=== PATIENT | female | born 1950 | race Caucasian/White ===

== ENCOUNTER 2022-10-30 08:05 | Outpatient (OUT) | payer MEDICARE, OTHER, SELFPAY ==
--- NOTE | 2022-10-30 08:15 | NM_ITS ---
Patient: ISABELLA HORNE Exam Date: 10/30/2022 : 1950 Gender:F Ordering : DR ALLISON GONZALES M.D. Admission #: [id number] Family : DR HONG SCHILLING M.D. Order #: [id number] CLICK HERE TO VIEW EXAM RADIOLOGY REPORT PROCEDURE: NM ANTONELLA PERF SPECT REST STR COMPARISON: None. INDICATIONS: NONRHEUMATIC MITRAL VALVE REGURGITATION TECHNIQUE: Exam Description: Stress/Rest one day protocol gated SPECT Rest Imagin.9 mCi Tc-99m Cardiolite IV on 10/30/2022 Stress Imaging 29.9 mCi Tc-99m Cardiolite IV on 10/30/2022 Exercise Protocol: 0.4 mg Lexiscan given IV Heart Rate (bpm): Rest: 68 Max: 85 PMHR: 57 Blood Pressure: Rest: 148/80 Max: 148/80 Symptoms: Rest and peak stress ECG findings were (unknown) and the exercise portion of the study was (unknown) per attending physician (Unknown) . For more details please see separate cardiac stress test report. FINDINGS: QUALITY OF STUDY: Good. PERFUSION DEFECT: LOCATION: Mid-anterior. Apical anterior. Apical septal. Apical inferior. Apical lateral. [place]. SIZE: Large (5 or more segments). SEVERITY: Severe. TYPE: Persistent. WALL MOTION: Dyskinesis: Apical anterior. Apical septal. Apical inferior. Apical lateral. [place]. LV SIZE: Normal. 122 mL. TID / TCD: None; 1.0 LVEF: Abnormal. Calculated EF 41%. SUMMARY: Myocardial perfusion imaging study has ABNORMAL findings. CONCLUSION: 1. No acute or reversible ischemia. 2. Large areas of fixed restricted perfusion involving the anterior wall and predominately the apex. 3. Abnormal dyskinesia of the apically tillman. 4. Abnormal, low ejection fraction 41%. Dictated by: Mike Astudillo M.D. on 10/31/2022 at 12:13 Approved by: Mike Astudillo M.D. on 10/31/2022 at 12:26
--- NOTE | 2022-10-30 09:36 | CA_ITS ---
Patient: ISABELLA HORNE Exam Date: 10/30/2022 : 1950 Gender:F Ordering : DR GERMANIA HELTON M.D. Admission #: [id number] Family : Order #: [id number] CLICK HERE TO VIEW EXAM ECHOCARDIOGRAM REPORT PROCEDURE: CA ECHO DOPPLER COMPLETE INDICATIONS: Nonrheumatic mitral valve regurgitation COMPARISON: None. DESCRIPTION: COMPLETE ECHOCARDIOGRAM Real-time transthoracic echocardiography with 2D, M-mode, spectral and color flow Doppler performed. QUALITY: Technical quality was good. LEFT VENTRICLE: Normal chamber size. Normal left ventricular wall thickness. LV EF: Global left ventricular systolic function is mild to moderately reduced; visually estimated ejection fraction is 35 to 40%. The distal two thirds of the septum, the apex and the distal anterolateral tillman are akinetic. DIASTOLIC: Grade I diastolic dysfunction. ATRIAL SEPTUM: Inadequately seen. LEFT ATRIUM: Mild dilatation. RIGHT ATRIUM: Mild dilatation. RIGHT VENTRICLE: Normal chamber size. Normal right ventricular systolic function. TRICUSPID VALVE: Normal mobility and thickness. Mild regurgitation. Mild pulmonary hypertension. RVSP 42mmHg MITRAL VALVE: Normal mobility and thickness. No evidence of mitral valve stenosis. There is no mitral annular calcification. Mild to moderate mitral regurgitation. AORTIC VALVE: Normal trileaflet appearance. Thickened aortic valve. Normal leaflet mobility. No evidence of aortic valve stenosis. Mild aortic regurgitation. AORTIC ROOT: Normal diameter and appearance. PULMONIC VALVE: Normal thickness and mobility. Trivial regurgitation. PERICARDIUM: No evidence of pericardial effusion. IVC: Collapses with inspirations. Normal size. CONCLUSION: 1. Global left ventricular systolic function is mild to moderately reduced; visually estimated ejection fraction is 35 to 40%. Segmental wall motion abnormalities are seen. 2. Grade 1 diastolic dysfunction. 3. Biatrial enlargement. 4. The right ventricle is normal in size and systolic function. 5. Mild tricuspid regurgitation. Mildly elevated right ventricular systolic pressure. 6. Mild to moderate mitral regurgitation. 7. Mild aortic valve regurgitation. Adult Echocardiography Procedure Report Left Ventricle LVEDD (3.7 - 5.6 cm): 4.80 cm LVESD (2.2 - 4.0 cm): 4.00 cm LVIVS thickness (0.6 - 1.2 cm): 0.82 cm LVPW thickness (0.5 - 1.0 cm): 0.84 cm e': 0.08 m/s E - e': 8.34 LVOT Max Gradient: 1.99 mm[Hg] LVOT Area (cm2): 0.71 m/s Peak Velocity (LVOT): 0.71 m/s Mean Velocity (LVOT): 0.52 m/s LVOT Diameter 1.92 cm Left Atrium LA Volume Index (2D A2C): 39.18 ml/m2 Left Atrium Systolic Dimension: 4.18 cm Mitral Valve MV E to A Ratio: 0.70 Mitral Valve A-Wave Peak Velocity: 1.00 m/s Mitral Valve E-Wave Peak Velocity: 0.70 m/s Right Ventricle RV Internal Diastolic Dimension: 3.35 cm Aorta AO Root Diam: 2.89 cm Aortic Valve AoV Area (Peak Kiran): 1.50 cm2, 1.50 cm2 AoV Area (VTI): 1.66 cm2, 1.66 cm2 Deceleration Gaines: 2.01 m/s2 Pressure Half-Time: 594.23 ms Peak Velocity(Antegrade Flow): 1.37 m/s Peak Gradient(Antegrade Flow): 7.50 mm[Hg] Mean Velocity(Antegrade Flow): 1.01 m/s Mean Gradient(Antegrade Flow): 4.59 mm[Hg] Velocity Time Integral: 38.58 cm Tricuspid Valve Peak Velocity (Regurgitant Flow): 3.13 m/s, 2.88 m/s, 2.49 m/s Pulmonic Valve Mean Gradient: 2.40 mm[Hg], 1.78 mm[Hg] Mean Velocity: 0.73 m/s, 0.63 m/s Peak Velocity: 0.95 m/s Peak Gradient: 4.20 mm[Hg], 3.08 mm[Hg] Right Atrium Right Atrium Systolic Pressure: 31.90 ml, 31.90 ml Dictated by: Germania Helton M.D. on 11/02/2022 at 16:28 Approved by: Germania Helton M.D. on 11/02/2022 at 16:33
[2022-10-30] MEDS: REGADENOSON 0.4 MG/5 ML SYRINGE IV (10:21)
--- NOTE | 2022-11-01 | PCN_ITS ---
CARDIAC STRESS TEST Requesting Physician:? Procedure Date:? 11/01/2022 INDICATION:? Abnormal EKG, preoperative risk assessment. METHODS:? After risks, benefits and alternatives were explained, written informed consent was obtained.? The patient was connected to the appropriate hemodynamic and electrocardiographic monitoring. Lexiscan 0.4 mg was infused intravenously.? She was monitored for the standard duration and discharged in a stable state.? There were no complications.? FINDINGS: HEMODYNAMICS:? Resting heart rate was 68 beats per minute, increasing to a maximum of 85 beats per minute. Resting blood pressure was 148/80, decreasing to a minimum of 138/78.? ELECTROCARDIOGRAPHIC FINDINGS:? Rest EKG:? Sinus bradycardia, 51 beats per minute, low voltage QRS in the precordial leads, non-specific ST-T wave changes inferolaterally.? Cannot rule out anterior infarct, age indeterminate.? Abnormal resting EKG.? During infusion and recovery:? No significant changes were seen.? Infrequent premature ventricular contractions noted.? A ventricular couplet was seen. FINAL IMPRESSIONS: 1.? No ischemic ST-T wave changes noted during Lexiscan stress test.? 2. ?Nuclear images are to be read, interpreted and reported in a separate dictation. [facility]
== END 2022-10-30 08:06 | disposition home or self-care (01) ==
PROVIDERS: PCP Family Medicine; Visit Provider Internal Medicine Interventional Cardiology
DX: Z01.818 Encounter for other preprocedural examination (principal); I34.0 Nonrheumatic mitral (valve) insufficiency; R94.31 Abnormal electrocardiogram [ECG] [EKG]
CPT/HCPCS: 78452; 93017; 93306; 93356; A9500; J2785

== ENCOUNTER 2022-12-14 14:01 | Emergency (ER) | payer MEDICARE, OTHER, SELFPAY ==
[2022-12-14] VITALS (8 sets, daily range): BP systolic 97–117; BP diastolic 43–76; PULSE 65–93; RESP 17–23; TEMP 36.7; O2SAT 97–100; BMI 24.7
--- NOTE | 2022-12-14 14:17 | ECG_ITS ---
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
--- NOTE | 2022-12-14 14:18 | ED.CHESTPAI1 ---
HPI - Chest Pain General Chief Complaint: Chest Pain Stated Complaint: COUGHING UP BLOOD Time Seen by Provider: 12/14/22 14:10 Source: patient Mode of arrival: walk-in Limitations: no limitations History of Present Illness HPI narrative: patient is a 72-year-old female who presents to the emergency department with her for the evaluation of pleuritic chest pain that began yesterday after her colonoscopy at the [facility] as well as blood-tinged mucus that she has been coughing up today. She had a colonoscopy yesterday as an outpatient, she was cleared by her sql database developer for this procedure last week. She has a history of coronary artery disease and open heart surgery. She has had no fevers, vomiting or diarrhea. She states she has pain in the left anterior chest that is worse with deep breathing and coughing. She does not feel the pain is severe. She has a history of vocal cord paralysis after her open-heart surgery and states as a result she has chronic nasal drainage and throat drainage that is difficult for her to clear. She states today she was coughing up mucus and noted that there was red blood in the mucus. She does not take blood thinners. She had no other issues after her procedure yesterday. Related Data Previous Rx's Medication Instructions Recorded amoxicillin 875 mg-potassium 1 tab PO Q12H #20 tabs 12/14/22 clavulanate 125 mg tablet ondansetron 4 mg disintegrating 4 mg PO Q6H PRN nausea and 12/14/22 tablet vomiting #12 tabs prednisone 20 mg tablet 60 mg PO DAILY 3 days #9 tabs 12/14/22 Allergies Allergy/AdvReac Type Severity Reaction Status Date / Time No Known Drug Allergies Allergy Verified 12/14/22 14:05 Review of Systems ROS Constitutional Denies: fever or chills Ears, nose, mouth, and throat Reports: nasal congestion Cardiovascular Reports: chest pain Respiratory Reports: cough and coughing up blood; Denies: shortness of breath Gastrointestinal Denies: nausea or vomiting Genitourinary Denies: painful urination Musculoskeletal Denies: back pain Integumentary/Breast Denies: rash Neurological Denies: headache Endocrine Denies: excessive urination Hematologic/Lymphatic Denies: easy bruising PFSH PFSH Social History Smoking status: Never smoker Exam Narrative Exam Narrative: Gen.: Awake, alert, in no distress Head: Normocephalic, atraumatic ENT: Moist mucous membranes Respiratory: No respiratory distress, lungs clear bilaterally; mild pain in the left anterior chest with inspiration Cardio: Regular rate and rhythm Extremities: Moves extremities equally, no edema Psych: Normal mood and affect Neuro: No focal neuro deficit Skin: Warm, dry, intact Constitutional Vital Signs, click to edit/add: Last Vital Signs Temp 98.1 F 12/14/22 14:05 Pulse 65 12/14/22 15:30 Resp 22 12/14/22 15:30 BP 102/51 12/14/22 15:30 Pulse Ox 99 12/14/22 15:30 O2 Del Method Room Air 12/14/22 14:15 Course Vital Signs Vital signs: Vital Signs Temperature 98.1 F 12/14/22 14:05 Pulse Rate 89 12/14/22 14:05 Respiratory Rate 20 12/14/22 14:05 Blood Pressure 117/76 12/14/22 14:05 Pulse Oximetry 99 12/14/22 14:05 Oxygen Delivery Method Room Air 12/14/22 14:05 Temperature 98.1 F 12/14/22 14:05 Pulse Rate 65 12/14/22 15:30 Respiratory Rate 22 12/14/22 15:30 Blood Pressure 102/51 12/14/22 15:30 Pulse Oximetry 99 12/14/22 15:30 Oxygen Delivery Method Room Air 12/14/22 14:15 MDM - Chest Pain MDM Narrative Medical decision making narrative: laboratory studies reviewed and noted showing leukocytosis with no bandemia and patient has stable vital signs in the Emergency Room. CT of the chest shows the patient has left upper and left lower lobe pneumonia. Her pain is controlled in the Emergency Room, she has an unremarkable EKG, normal troponin and pain has been present for over a day. I discussed the case with Dr. Gonzalez, he recommended Augmentin with outpatient follow-up with him in the office next week. Patient is grateful for care, she and her are very comfortable with outpatient management. She has stable vital signs at discharge, she is started on Augmentin, prednisone and Zofran for home. She was given education and reassurance that she will likely continue to have mild hemoptysis with mucus production over the weekend but if she develops any worsening of chest pain, significant shortness of breath or severe david hemoptysis she needs to return to the emergency department. Medical Records Data Attestation: I reviewed the patient's medical records. Lab Data Attestation: I reviewed the patient's lab results. Labs: Lab Results 12/14/22 Range/Units 14:25 WBC 17.2 H (4.0-11.0) 10^3/uL RBC 4.07 L (4.20-5.40) 10^6/uL Hgb 12.7 (12.0-16.0) g/dL Hct 39.4 (36.0-48.0) % MCV 96.8 (81.0-99.0) fL MCH 31.2 (26.7-34.0) pg MCHC 32.2 (29.9-35.2) g/dL RDW 13.4 (11.0-15.0) % Plt Count 149 L (150-450) 10^3/uL MPV 11.0 (9.5-13.5) fL Neut % (Auto) 85.8 H (43.0-75.0) % Lymph % (Auto) 6.4 L (20.5-60.0) % [place] % (Auto) 6.7 (1.7-12.0) % Eos % (Auto) 0.6 L (0.9-7.0) % Baso % (Auto) 0.2 (0.2-2.0) % Neut # (Auto) 14.7 H (1.4-6.5) 10^3/uL Lymph # (Auto) 1.1 L (1.2-3.8) 10^3/uL [place] # (Auto) 1.2 H (0.3-0.8) 10^3/uL Eos # (Auto) 0.1 (0.0-0.7) 10^3/uL Baso # (Auto) 0.0 (0.0-0.1) 10^3/uL Abs Immat Gran (auto) 0.06 H (0.00-0.03) 10^3/uL Imm/Tot Granulo (auto) 0.3 (0.0-0.5) % PT 10.8 (9.0-11.6) sec INR 1.02 APTT 25.2 (22.3-36.2) sec Sodium 138 (136-145) mmol/L Potassium 4.5 (3.5-5.1) mmol/L Chloride 104 (98-107) mmol/L Carbon Dioxide 29.3 (21.0-32.0) mmol/L Anion Gap 9.2 BUN 24.0 H (7.0-18.0) mg/dL Creatinine 1.46 H (0.55-1.02) mg/dL Est GFR ( Amer) 43 L (>=60) Est GFR (Non-Af Amer) 35 L (>=60) BUN/Creatinine Ratio 16.4 Glucose 142 H (74-106) mg/dL Calcium 8.9 (8.5-10.1) mg/dL Total Bilirubin 0.9 (0.2-1.0) mg/dL AST 23 (15-37) U/L ALT 20 (14-59) U/L Alkaline Phosphatase 71 (46-116) U/L Troponin I High Sens 11.8 (4.0-51.3) pg/mL NT-Pro-B Natriuret Pep 1145.0 H (<=900.0) pg/mL Total Protein 6.5 (6.4-8.2) g/dL Albumin 3.0 L (3.4-5.0) g/dL Globulin 3.5 g/dL Albumin/Globulin Ratio 0.[address] scan - chest: Attestation: I have reviewed the pertinent imaging results. Radiologist's impression: Procedure: CT chest w con EXAMINATION: CT chest w con HISTORY: Hemoptysis COMPARISON: None. TECHNIQUE: CT examination of the chest performed With intravenous contrast. Coronal and sagittal reformations were performed. Dose reduction techniques were achieved by using automated exposure control and/or adjustment of mA and/or kV according to patient size and/or use of iterative reconstruction technique. Findings: LUNGS: A large amount of groundglass and consolidative opacities throughout the left upper and lower lobes. AIRWAYS: Central airways patent. PLEURA: Trace right pleural effusion. MEDIASTINUM AND LEATHA: Calcified lymph nodes. HEART AND PERICARDIUM: No significant finding. VESSELS: No central pulmonary emboli. Heavy coronary calcification. CHEST WALL: Median sternotomy wires. NECK BASE: No significant finding. VISUALIZED UPPER ABDOMEN: Calcified splenic granuloma. Approximately 2 cm splenic hypodensity, series 3 image 82, potentially contrast timing related, and/or cyst, hemangioma, hamartoma. BONES: As above. DISH of the thoracic spine. Impression: Left upper and lower lobar pneumonia, likely superimposed hemorrhage given provided history. Follow-up to resolution. Trace right pleural effusion. Electronically authenticated by: LIO VILLALBA Date: 12/14/2022 15:46 ECG Data Attestation: I personally reviewed and interpreted this ECG as follows: (normal sinus rhythm at a rate of eighty-five with frequent PVCs, no acute ST elevation or ectopy. EKG reviewed by attending physician) ECG interpretation date: 12/14/22 ECG interpretation time: 14:20 Discharge Plan Discharge Chief Complaint: Chest Pain Clinical Impression: Hemoptysis, Left lower lobe pneumonia, Chest pain Patient Disposition: Home, Self-Care Time of Disposition Decision: 16:00 Condition: Good Prescriptions / Home Meds: New prednisone 20 mg tablet 60 mg PO DAILY 3 Days Qty: 9 0RF ondansetron 4 mg tablet,disintegrating 4 mg PO Q6H PRN (Reason: nausea and vomiting) Qty: 12 0RF amoxicillin-pot clavulanate 875-125 mg tablet 1 tab PO Q12H Qty: 20 0RF Instructions: Coughing Up Blood (Hemoptysis) (ED), Pneumonia (ED), Chest Wall Pain (ED) Stand Alone Forms: Portal Instructions Referrals: HONG SCHILLING [Primary Care Provider] - 1 week
[2022-12-14 14:38] LABS: Basophils Percent Auto 0.2 % (0.2-2.0); Eosinophils Absolute Auto 0.1 10^3/uL (0.0-0.7); Eosinophils Percent Auto 0.6 % (0.9-7.0); Hematocrit 39.4 % (36.0-48.0); Hemoglobin 12.7 g/dL (12.0-16.0); Immature Granulocytes Abs Auto 0.06 10^3/uL (0.00-0.03); Immature Granulocytes Pct Auto 0.3 % (0.0-0.5); Lymphocytes Absolute Auto 1.1 10^3/uL (1.2-3.8); Lymphocytes Percent Auto 6.4 % (20.5-60.0); Mean Corpuscular HGB Conc 32.2 g/dL (29.9-35.2); Mean Corpuscular Hemoglobin 31.2 pg (26.7-34.0); Mean Corpuscular Volume 96.8 fL (81.0-99.0); Monocytes Absolute Auto 1.2 10^3/uL (0.3-0.8); Monocytes Percent Auto 6.7 % (1.7-12.0); Neutrophils Absolute Auto 14.7 10^3/uL (1.4-6.5); Neutrophils Percent Auto 85.8 % (43.0-75.0); Platelet Count 149 10^3/uL (150-450); Red Blood Count 4.07 10^6/uL (4.20-5.40); Red Cell Distribution Width 13.4 % (11.0-15.0); White Blood Count 17.2 10^3/uL (4.0-11.0)
[2022-12-14 14:56] LABS: Alanine Aminotransferase 20 U/L (14-59); Albumin Globulin Ratio 0.9; Alkaline Phosphatase 71 U/L (46-116); Anion Gap 9.2; Aspartate Amino Transferase 23 U/L (15-37); BUN Creatinine Ratio 16.4; Bilirubin Total 0.9 mg/dL (0.2-1.0); Calcium 8.9 mg/dL (8.5-10.1); Carbon Dioxide 29.3 mmol/L (21.0-32.0); Chloride 104 mmol/L (98-107); Estimated GFR (African America 43 (>=60); Estimated GFR (Non-African Ame 35 (>=60); Globulin 3.5 g/dL; Glucose 142 mg/dL (74-106); INR 1.02; Partial Thromboplastin Time 25.2 sec (22.3-36.2); Potassium 4.5 mmol/L (3.5-5.1); Prothrombin Time 10.8 sec (9.0-11.6); Sodium 138 mmol/L (136-145); Total Protein 6.5 g/dL (6.4-8.2)
[2022-12-14 15:04] LABS: Troponin I High Sensitivity 11.8 pg/mL (4.0-51.3)
--- NOTE | 2022-12-14 15:15 | CT_ITS ---
The [address] [address] Patient Name: ISABELLA HORNE MRN: [id number] date: 1950 Sex: F Assigned Patient Location: ER Current Patient Location: ER Accession/Order Number: [id number] Exam Date: 12/14/2022 15:06 Report Date: 12/14/2022 15:46 At the request of: TERRENCE SAMSON Procedure: CT chest w con EXAMINATION: CT chest w con HISTORY: Hemoptysis COMPARISON: None. TECHNIQUE: CT examination of the chest performed With intravenous contrast. Coronal and sagittal reformations were performed. Dose reduction techniques were achieved by using automated exposure control and/or adjustment of mA and/or kV according to patient size and/or use of iterative reconstruction technique. Findings: LUNGS: A large amount of groundglass and consolidative opacities throughout the left upper and lower lobes. AIRWAYS: Central airways patent. PLEURA: Trace right pleural effusion. MEDIASTINUM AND LEATHA: Calcified lymph nodes. HEART AND PERICARDIUM: No significant finding. VESSELS: No central pulmonary emboli. Heavy coronary calcification. CHEST WALL: Median sternotomy wires. NECK BASE: No significant finding. VISUALIZED UPPER ABDOMEN: Calcified splenic granuloma. Approximately 2 cm splenic hypodensity, series 3 image 82, potentially contrast timing related, and/or cyst, hemangioma, hamartoma. BONES: As above. DISH of the thoracic spine. CT/CT chest w con Impression: Left upper and lower lobar pneumonia, likely superimposed hemorrhage given provided history. Follow-up to resolution. Trace right pleural effusion. Electronically authenticated by: LIO VILLALBA Date: 12/14/2022 15:46
== END 2022-12-14 16:16 | disposition home or self-care (01) ==
PROVIDERS: Physician Assistant; Emergency Provider Emergency Medicine; PCP Family Medicine
DX: J18.9 Pneumonia, unspecified organism (principal); R04.2 Hemoptysis; R07.9 Chest pain, unspecified; I25.10 Atherosclerotic heart disease of native coronary artery without angina pectoris; J38.00 Paralysis of vocal cords and larynx, unspecified
CPT/HCPCS: 36415; 71260; 80053; 83880; 84484; 85025; 85610; 85730; 93005; 99285; Q9967

== ENCOUNTER 2023-03-30 15:13 | Outpatient (OUT) | payer MEDICARE, OTHER, SELFPAY ==
--- NOTE | 2023-03-30 15:16 | CT_ITS ---
[address] [address] Patient Name: ISABELLA HORNE MRN: [id number] date: 1950 Sex: F Assigned Patient Location: CT Current Patient Location: CT Accession/Order Number: [id number] Exam Date: 03/30/2023 15:26 Report Date: 03/30/2023 16:00 At the request of: JD YOUNGBLOOD Procedure: CT chest wo con EXAMINATION: CT chest wo con HISTORY: aspiration pneumonia due to to gastric secretions J89.0 COMPARISON: CT chest 12/14/2022 TECHNIQUE: Multi-planar CT images were obtained without and/or with IV contrast as indicated by examination type. Axial, Coronal, and Sagittal images. Dose reduction techniques were achieved by using automated exposure control and/or adjustment of mA and/or kV according to patient size and/or use of iterative reconstruction technique. FINDINGS: LUNGS: Small curvilinear opacity within posterior lateral left lung base adjacent small amount of alveolar disease in area of prior pneumonia; residual infiltrates versus scarring. Lungs are otherwise clear. PLEURA: No mass, effusion, or pneumothorax. VASCULATURE: No abnormality. LEATHA: Calcified lymph nodes compatible with chronic granulomatous disease. MEDIASTINUM: Calcified lymph nodes. CARDIAC: Marked atherosclerotic coronary artery disease. No enlargement or pericardial effusion. AORTA: No aneurysm or dissection. CHEST WALL: No mass or axillary adenopathy. BONES: No bone lesion or fracture. LIMITED ABDOMEN: No suspicious findings Limited images of the upper abdomen. OTHER: Negative. CT/CT chest wo con IMPRESSION: 1. Complete clearing of previously seen pneumonia. Suspect trace amount scarring within posterior left lung base. 2. No lymphadenopathy. Electronically authenticated by: EDWIN HARP Date: 03/30/2023 16:00
--- OUTSIDE RECORDS SUMMARY | 2023-03-30 15:24 | XMS_ITS | CCD ---
Author Name Unknown Address [address] [place] [address] Organization [facility] Care Team Providers Care Freelance Recruiter Name Role Phone PHYSICIAN, DEFAULT Unavailable Unavailable PHYSICIAN, DEFAULT Unavailable Unavailable OZ SCHILLING Unavailable Unavailable MD Oz Schilling Primary Care Provider DO Sandoval Trammell Attending Provider DO Wai Duvall II Attending Provider 1( [phone] MD Oz Schilling Attending Provider MD Oz Schilling Primary Care Provider DO Sandoval Trammell Attending Provider SUNITHA, DR COOPER Consulting Unavailable ELTAHAWY, DR COOPER Admitting Unavailable ELTAHAWY, DR COOPER Attending Unavailable TONIE, DR PITTS Primary Care Unavailable TONIE, DR PITTS Primary Care Unavailable TONIE, DR PITTS Admitting Unavailable TONIE, DR PITTS Attending Unavailable TONIE, DR PITTS Consulting Unavailable JHONNY CAREY Unavailable ALAYUMIKO CUELLAR Primary Care Unavailable ITZKOWITZ, DR SANDOVAL Mack Consulting Unavaila ble ITZKOWICRYSTAL, DR SANDOVAL Mack Admitting Unavaila ble ITZKOWITZ, DR SANDOVAL Mack Attending Unavaila ble TONIE, DR PITTS Primary Care Unavailable MISC, DR MCDONALD Admitting Unavailable MISC, DR MCDONALD Attending Unavailable MISC, DR MCDONALD Consulting Unavailable ZIEBER, DR MIKE Grier Consulting Unavailable SHY, DR JHONNY Franks Consulting Unavailable ELTAHAWY, DR COOPER Admitting Unavailable ELTAHAWY, DR COOPER Attending Unavailable TONIE, DR PITTS Primary Care Unavailable ELTAHAWY, DR COOPER Consulting Unavailable SHY, DR JHONNY Franks Consulting Unavailable CUBA GORDON Attending Unavailable CUBA GORDON Admitting Unavailable TONIE, DR PITTS Primary Care Unavailable ASYA HERNANDEZ Consulting Unavailable BRANDT, MATT Pace Consulting Unavailable PAY, DR MARTINEZ Admitting Unavailable PAY, DR MARTINEZ Attending Unavailable WEST, DR JHONNY Franks Consulting Unavailable TONIE, DR PITTS Primary Care Unavailable PAY, DR MARTINEZ Consulting Unavailable TONIE, DR PITTS Admitting Unavailable TONIE, DR PITTS Attending Unavailable TONIE, DR PITTS Primary Care Unavailable TONIE, DR PITTS Consulting Unavailable VICENTA GONZALESAB Attending Unavailable Sandoval Trammell Attending Unavailable Sandoval Trammell Admitting Unavailable Oz Schilling Primary Care Unavailable SANDOVAL TRAMMELL Attending Unavailable TONIEOZ Referring Unavailable TONIEOZ Attending Unavailable Allergies Allergy Classification Reported Allergen(s) Allergy Type Date of Onset Reaction(s) Facility (1 source) 09194,00; Translations: [26697,00] Propensity to adverse reactions (disorder) 9 [facility] Medications Current Medications Medication Drug Class(es) Dates Sig (Normalized) Sig (Original) acetaminophen 325 mg / oxyCODONE hydrochloride 5 mg oral tablet (3 sources) Opioid Agonist Start: 02-22-2021 take 1 tablet by mouth every four to six hours Oxycodone-Acetamin ophen (Percocet) 5-325 mg tablet Active 1 TAB PO EVERY 4-6 HOURS 7 2 February 22, 2021 3:01pm aspirin 81 mg delayed release oral tablet (3 sources) Platelet Aggregation Inhibitor, Nonsteroidal Anti-inflammatory Drug Start: 12-31-2020 take 81 mg by mouth once daily Aspirin Active 81 MG PO Daily December 31, 2020 3:58pm carvedilol 3.125 mg oral tablet (3 sources) alpha-Adrenergic Mervin, beta-Adrenergic Mervin Start: 12-28-2020 take 3.125 mg by mouth twice daily Carvedilol Active 3.125 MG PO Twice daily December 28, 2020 1:46pm cinnamon bark 500 mg oral capsule (3 sources) Start: 12-31-2020 take 1 capsule by mouth twice daily Cinnamon Bark (Cinnamon) 500 mg Capsule Active 500 MG PO Twice daily December 31, 2020 3:58pm empagliflozin 10 mg oral tablet (3 sources) Sodium-Glucose Cotransporter 2 Inhibitor Start: 01-19-2021 take 1 tablet by mouth once daily in the evening Empagliflozin (Jardiance) 10 mg tablet Active 10 MG PO Every evening January 19, 2021 5:26pm famotidine 20 mg oral tablet (3 sources) Histamine-2 Receptor Antagonist Start: 12-31-2020 take 20 mg by mouth once daily at bedtime Famotidine Active 20 MG PO Daily at bedtime December 31, 2020 3:58pm ferrous sulfate 325 mg oral tablet (3 sources) Start: 12-31-2020 take 325 mg by mouth twice daily Ferrous Sulfate Active 325 MG PO Twice daily December 31, 2020 3:58pm 12 hr fexofenadine hydrochloride 60 mg / pseudoephedrine hydrochloride 120 mg extended release oral tablet (3 sources) alpha-Adrenergic Agonist, Histamine-1 Receptor Antagonist Start: 12-31-2020 take 1 tablet by mouth every twelve hours, then take 1 tablet by mouth every twelve hours Fexofenadine-Pseud oephedrine (Ritika-D 12 Hour) 60-120 mg Tablet Extended Release 12 Hr Active 1 TAB PO Q12H December 31, 2020 3:58pm ibuprofen 600 mg oral tablet (3 sources) Nonsteroidal Anti-inflammatory Drug Start: 03-15-2021 Ibuprofen Active 600 MG PO EVERY 4-6 HOURS 14 7 March 15, 2021 1:44pm do not exceed 4 doses in a 24 hour period levothyroxine sodium 0.088 mg oral tablet (3 sources) l-Thyroxine Start: 12-28-2020 take 88 ug by mouth once daily Levothyroxine Active 88 MCG PO Daily December 28, 2020 1:46pm magnesium oxide 500 mg oral tablet (3 sources) Start: 01-19-2021 take 500 mg by mouth twice daily Magnesium Oxide Active 500 MG PO Twice daily January 19, 2021 5:26pm Multivitamin preparation (3 sources) Start: 12-31-2020 take 1 tablet by mouth once daily Multivitamin Active 1 TAB PO Daily December 31, 2020 3:58pm Start: 12-31-2020 take 1 tablet by diogo th once daily Multivitamin Active 1 TAB PO Daily December 31, 2020 1:00am omeprazole 40 mg delayed release oral capsule (3 sources) Proton Pump Inhibitor Start: 12-31-2020 take 40 mg by mouth once daily Omeprazole Active 40 MG PO Daily December 31, 2020 3:58pm 24 hr oxybutynin chloride 15 mg extended release oral tablet (3 sources) Cholinergic Muscarinic Antagonist Start: 12-31-2020 take 15 mg by mouth once daily Oxybutynin Chloride Active 15 MG PO Daily December 31, 2020 3:58pm pravastatin sodium 40 mg oral tablet (3 sources) HMG-CoA Reductase Inhibitor Start: 12-28-2020 take 40 mg by mouth once daily at bedtime Pravastatin Active 40 MG PO Daily at bedtime December 28, 2020 1:46pm sacubitril 49 mg / valsartan 51 mg oral tablet (3 sources) Angiotensin 2 Receptor Mervin Start: 12-31-2020 take 1 tablet by mouth once daily Sacubitril-Valsart an (Entresto) 49-51 mg Tablet Active 1 TAB PO Daily December 31, 2020 3:58pm Completed/Discontinued Medications Medication Drug Class(es) Dates Sig (Normalized) Sig (Original) Magnesium (3 sources) Start: 12-31-2020 End: 01-19-2021 take 15 mg by mouth once daily Magnesium Discontinued 15 MG PO Daily December 31, 2020 3:58pm January 19, 2021 5:30pm Start: 12-31-2020 End: 01-19-2021 take 15 mg by mouth once daily Magnesium Discontinued 15 MG PO Daily December 31, 2020 1:00am January 19, 2021 5:30pm Problems Active Problems Problem Classification Problem Date Documented Date Episodic/Chronic Cancer of breast (5 sources) Carcinoma of breast ; Translations: [Malignant neoplasm of unspecified site of unspecified female breast] 12-31-2020 Chronic Cancer of breast (5 sources) Personal history of malignant neoplasm of breast; Translations: [Personal history of malignant neoplasm of breast] Onset: 2 Episodic Congestive heart failure; nonhypertensive (3 sources) Heart failure, unspecified; Translations: [Unspecified combined systolic (congestive) and diastolic (congestive) heart failure] Onset: 1 Chronic Coronary atherosclerosis and other heart disease (17 sources) Coronary arteriosclerosis; Translations: [Atherosclerotic heart disease of [place] coronary artery without angina pectoris] Onset: 1 03-15-2021 Chronic Diabetes mellitus without complication (1 source) Type 2 diabetes mellitus without complications; Translations: [TYPE 2 DM WITHOUT COMPLICATIONS] Onset: 1 Chronic Esophageal disorders (1 source) Gastro-esophageal reflux disease without esophagitis; Translations: [GERD WITHOUT ESOPHAGITIS] Onset: 1 Chronic Hypertension with complications and secondary hypertension (1 source) Hypertensive heart disease with heart failure; Translations: [HTN HEART DISEASE W/HEART FAIL] Onset: 1 Chronic Other screening for suspected conditions (not mental disorders or infectious disease) (9 sources) Electrocardiogram abnormal; Translations: [Abnormal electrocardiogram [ECG] [EKG]] Onset: 2 03-28-2021 Episodic Thyroid disorders (1 source) Hypothyroidism, unspecified; Translations: [HYPOTHYROIDISM UNSPECIFIED] Onset: 1 Chronic Viral infection (4 sources) COVID-19; Translations: [COVID-19] Onset: 1 Past or Other Problems Problem Classification Problem Date Documented Da te Episodic/Chronic Coronary atherosclerosis and other heart disease (3 sources) Presence of aortocoronary bypass graft; Translations: [Aortocoronary bypass status] Onset: 11-22-2020 Episodic E Codes: Fall (1 source) Unspecified fall, initial encounter; Translations: [UNSPECIFIED FALL INITIAL ENCOUNTER] Onset: 11-22-2020 Episodic Fluid and electrolyte disorders (5 sources) Hyperkalemia; Translations: [Dehydration] Onset: 11-22-2020 Episodic Genitourinary symptoms and ill-defined conditions (1 source) Personal history of urinary (tract) infections; Translations: [PERS HX URINARY TRACT INFECTIONS] Onset: 11-22-2020 Episodic Malaise and fatigue (1 source) Weakness; Translations: [WEAKNESS] Onset: 11-22-2020 Episodic Nausea and vomiting (1 source) Nausea; Translations: [NAUSEA] Onset: 11-22-2020 Episodic Other aftercare (1 source) USP (current) use of aspirin; Translations: [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 CURRENT USE OF ASPIRIN] Onset: 11-22-2020 Episodic Other aftercare (1 source) Other intermediate school teacher (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) drug therapy; Translations: [OTH 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 CURRENT DRUG THERAPY] Onset: 11-22-2020 Episodic Other circulatory disease (1 source) Personal history of transient ischemic attack (TIA), and cerebral infarction without residual deficits; Translations: [PERS HX TIA AND CI NO RESID DEFICIT] Onset: 11-22-2020 Episodic Other injuries and conditions due to external causes (1 source) Other specified injuries of right shoulder and upper arm, initial encounter; Translations: [OTH SPEC INJ RT SHOULDR UP ARM INIT] Onset: 11-22-2020 Episodic Other liver diseases (4 sources) Abnormal levels of other serum enzymes; Translations: [ABNORMAL LEVELS OTHER SERUM ENZYMES] Onset: 04-18-2021 Episodic Other lower respiratory disease (1 source) Shortness of breath; Translations: [SHORTNESS OF BREATH] Onset: 11-22-2020 Episodic Other non-traumatic joint disorders (3 sources) Pain in right shoulder; Translations: [PAIN IN RIGHT SHOULDER] Onset: 11-18-2020 Episodic Sprains and strains (1 source) Strain of unspecified muscle, fascia and tendon at shoulder and upper arm level, right arm, initial encounter; Translations: [STRN UNS MSC F TND SHLDR UA RA INIT] Onset: 11-22-2020 Episodic Superficial injury; contusion (1 source) Contusion of right shoulder, initial encounter; Translations: [CONTUSION RIGHT SHOULDER INITIAL] Onset: 11-22-2020 Episodic Results Test Name Value Interpretation Reference Range Facility MM diagnostic mammo BI w/CAD on 11-21-2022 MM diagnostic mammo BI w/CAD [facility] [place] [address] Mammography Report Signed Patient: Lilly Horne MR#: [id number] : 1950 Acct:[id number] Age/Sex: 72 / F ADM Date: 11/21/22 Loc: [place] Room: Type: [facility] Attending Dr: Sandoval Trammell DO Copies to: DO Oz Pollock MD Ordering Provider: Sandoval Trammell DO Date of Service: 11/21/22 MM/MM diagnostic mammo BI w/CAD: Z85.3 CLINICAL DATA: History of right breast adenoid cystic carcinoma. BILATERAL DIAGNOSTIC MAMMOGRAMS - FULL FIELD DIGITAL WITH TOMOSYNTHESIS AND CAD Tomosynthesis craniocaudal and mediolateral oblique views of both breasts were obtained using low- dose digital technique. Comparison is made to prior studies from October 11, 2020 through October 21, 2021). This examination was reviewed with the aid of CAD. There are scattered fibroglandular densities. Postoperative scarring and Biozorb are again visualized at the central mid and posterior right breast. Benign and vascular calcifications are visualized. There are no developing masses, typically malignant calcifications or architectural distortion. There has been no significant interval change. MM/MM diagnostic mammo BI w/CAD IMPRESSION: NO MAMMOGRAPHIC EVIDENCE OF MALIGNANCY. ROUTINE FOLLOW-UP IS RECOMMENDED IN ONE YEAR. RESULT CODE: 2 Benign Findings(s) DENSITY CODE: 2 (approximately 25-50% glandular) FOLLOW UP: 1YR The false-negative rate of mammography is approximately 10-percent. Management of a palpable abnormality must be based on clinical grounds. Patient was entered into a reminder system with a target due date for the next mammogram. Impression dictated by: Vanessa Alva M.D.11/21/2022 11:28 AM Dictation Location: [facility] Transcribed By: [facility] 11/21/22 112 Dictated By: Vanessa Alva MD 11/21/221120 Signed By: 11/21/22 112 [facility] Office Visiton 10-02-2022 Follow-up visit [id number] Lilly Horne 1950 F Date Provider Department Center 10/02/2022 271-ELTAHAWY, [facility] Family History Problem Relation Age of Onset Coronary artery disease Brother Family Status - Relation Status Age at Brother Level of Service:24053 [place] OFFICE/OUTPATIENT ESTABLISHED MOD MDM 30-39 MIN Normal [facility] MG MAMM JONNA DIAG W CADon MG MAMM JONNA DIAG W CAD Patient: LILLY HORNE Zhanna. Exam Date: 10/21/2021 : 1950 Gender:F Ordering : DR SANDOVAL TRAMMELL D.O. Admission #: [id number] Family : Order #: [id number] CLICK HERE TO VIEW EXAM RADIOLOGY REPORT PROCEDURE: MAMMOGRAM BILATERAL DIAGNOSTIC DIGITAL WITH COMPUTER AIDED DETECTION COMPARISON: MAMMO POST BIOPSY RIGHT, 11/09/2020. MG MAMM SCREEN 3D JONNA CAD, 10/11/2020. INDICATIONS: Personal history of malignant neoplasm of breast Calculator Name NCI Breast Cancer Risk Assessment Tool 5 Year Breast Cancer Risk 2.00% Lifetime Breast Cancer Risk 5.30% Personal Breast Cancer No Personal Ovarian Cancer No Treatments None Family Cancers None LOCATION: [facility] BREAST COMPOSITION: Heterogeneously dense,which may obscure small masses. FINDINGS: DIAGNOSTIC CATEGORY 2--BENIGN FINDING: RIGHT BREAST: Surgical changes within the upper inner quadrant, mid breast. Within the posterior upper inner quadrant is a 2 cm round structure with 6 metallic clips/markers of uncertain etiology, but likely related to surgery or chemotherapy/radiation. No suspicious findings. LEFT BREAST: No significant suspicious finding. No significant change has occurred. RECOMMENDATIONS: ROUTINE MAMMOGRAM AND CLINICAL EVALUATION IN 12 MONTHS. PLEASE NOTE: A NORMAL MAMMOGRAM DOES NOT EXCLUDE THE POSSIBILITY OF BREAST CANCER. A CLINICALLY SUSPICIOUS PALPABLE LUMP SHOULD BE BIOPSIED. Dictated by: Mike Astudillo M.D. on 10/21/2021 at 14:35 Approved by: Mike Astudillo M.D. on 10/21/2021 at 15:23 Normal [facility] LIVER PROFILEon 07-13-2021 Albumin [Mass/Vol] 3.5 g/dL Normal 3.4-5.0 [facility] Comment on above: Performed By: #### L IVER ####[facility] [address] [place] [address]Dr. Krystal Lewis Albumin/Globulin [Mass ratio] 0.9 {ratio} Normal [facility] Comment on above: Performed By: #### L IVER ####[facility] [address] [place] [address]Dr. Krystal Lewis ALP [Catalytic activity/Vol] 92 U/L Normal 46-116 [facility] Comment on above: Performed By: #### L IVER ####[facility] [address] [place] [address]Dr. Krystal Lewis ALT [Catalytic activity/Vol] 23 U/L Normal 14-59 [facility] Comment on above: Performed By: #### L IVER ####[facility] [address] [place] [address]Dr. Krystal Lewis AST [Catalytic activity/Vol] 18 U/L Normal 15-37 [facility] Comment on above: Performed By: #### L IVER ####[facility] [address] [place] [id number]. Krystal Lewis BILI, CONJUGATED 0.1 mg/dL Normal 0.0-0.2 [facility] Comment on above: Performed By: #### L IVER ####[facility] [address] [place] [id number]. Krystal Lewis Bilirubin [Mass/Vol] 0.7 mg/dL Normal 0.2-1.0 [facility] Comment on above: Performed By: #### L IVER ####[facility] [address] [place] [id number]. Krystal Lewis Globulin (S) [Mass/Vol] 3.7 g/dL Normal [facility] Comment on above: Performed By: #### L IVER ####[facility] [address] [place] [id number]. Krystal Lewis Protein [Mass/Vol] 7.2 g/dL Normal 6.4-8.2 [facility] Comment on above: Performed By: #### L IVER ####[facility] [address] [place], [place] [address]Xn. Krystal Lewis US SINGLE QUAD RT UPPERon US SINGLE QUAD RT UPPER EXAM: US SINGLE QUAD RT UPPER HISTORY: . High enzyme level in serum . COMPARISON: None. TECHNIQUE: Grayscale and color imaging was performed FINDINGS: The pancreas is grossly unremarkable. Scanning of the liver demonstrates a liver to be normal in size. Small echogenic foci are noted within the liver with shadowing consistent with small granuloma in the liver. Color-flow is noted in the portal and hepatic veins. The gallbladder appears normal with no stones or sludge identified. No gallbladder wall thickening is noted. Right kidney measures 9.7 x 4.2 x 5.2 cm. No solid renal cortical masses or hydronephrosis is noted. Common bile duct is prominent measuring 6 mm. No fluid is noted in the right upper quadrant. IMPRESSION: 1. Common bile duct is prominent measuring 6 mm. 2. The remainder of the right upper quadrant was unremarkable. Electronically authenticated by: JHONNY CAREY Date: 2021-04-18 10:16 Normal [facility] Complete Blood Count with Au to Diffon 04-05-2021 Basophils (Bld) [#/Vol] 0.03 10*3/uL Normal 0.00-0.20 [facility] Library Assistant Comment on above: Performed By: #### T SH reflex FT4, LIPD, CMP, CBCAD #### [facility] [address] [place], [place] [id number] Basophils/100 WBC (Bld) 0.5 % Normal [facility] Specialist Comment on above: Performed By: #### T SH reflex FT4, LIPD, CMP, CBCAD #### [facility] [address] [place], [place] [id number] Eosinophils (Bld) [#/Vol] 0.26 10*3/uL Normal 0.02-0.50 [facility] Library Assistant Comment on above: Performed By: #### T SH reflex FT4, LIPD, CMP, CBCAD #### [facility] [address] [place], [place] [id number] Eosinophils/100 WBC (Bld) 4.1 % Normal [facility] Library Assistant Comment on above: Performed By: #### T SH reflex FT4, LIPD, CMP, CBCAD #### [facility] [address] [place], [place] [id number] Erythrocyte distribution width (RBC) [Ratio] 13.2 % Normal 11.0-15.0 [facility] Assistant Comment on above: Performed By: #### T SH reflex FT4, LIPD, CMP, CBCAD #### [facility] [address] [place], [place] [id number] Hematocrit (Bld) [Volume fraction] 46.2 % Normal 35.0-47.0 [facility] Library Assistant Comment on above: Performed By: #### T SH reflex FT4, LIPD, CMP, CBCAD #### [facility] [address] [place], [place] [id number] Hemoglobin (Bld) [Mass/Vol] 14.4 g/dL Normal 11.6-15.5 [facility] Library Assistant Comment on above: Performed By: #### T SH reflex FT4, LIPD, CMP, CBCAD #### [facility] [address] [place], [place] [id number] Lymphocytes (Bld) [#/Vol] 1.1 10*3/uL Normal 0.9-3.9 [facility] Comment on above: Performed By: #### T SH reflex FT4, LIPD, CMP, CBCAD #### [facility] [address] [place], [place] [id number] Lymphocytes/100 WBC (Bld) 17.5 % Normal [facility] Comment on above: Performed By: #### T SH reflex FT4, LIPD, CMP, CBCAD #### [facility] [address] [place], [place] [id number] MCH (RBC) [Entitic mass] 30.3 pg Normal 27.0-33.0 [facility] Specialist Comment on above: Performed By: #### T SH reflex FT4, LIPD, CMP, CBCAD #### [facility] [address] [place], [place] [id number] MCHC (RBC) [Mass/Vol] 31.2 g/dL Low 32.0-36.0 [facility] Comment on above: Performed By: #### T SH reflex FT4, LIPD, CMP, CBCAD #### [facility] [address] [place], [place] [id number] MCV (RBC) [Entitic vol] 97 fL Normal 80-100 [facility] Specialist Comment on above: Performed By: #### T SH reflex FT4, LIPD, CMP, CBCAD #### [facility] [address] [place], [place] [id number] Monocytes (Bld) [#/Vol] 0.7 10*3/uL Normal 0.2-0.9 [facility] Specialist Comment on above: Performed By: #### T SH reflex FT4, LIPD, CMP, CBCAD #### [facility] [address] [place], [place] [id number] Monocytes/100 WBC (Bld) 11.8 % Normal [facility] Specialist Comment on above: Performed By: #### T SH reflex FT4, LIPD, CMP, CBCAD #### [facility] [address] [place], [place] [id number] Neutrophils (Bld) [#/Vol] 4.1 10*3/uL Normal 1.5-7.8 [facility] Comment on above: Performed By: #### T SH reflex FT4, LIPD, CMP, CBCAD #### [facility] [address] [place], [place] [id number] Neutrophils/100 WBC (Bld) 65.6 % Normal [facility] Comment on above: Performed By: #### T SH reflex FT4, LIPD, CMP, CBCAD #### [facility] [address] [place], [place] [id number] Platelet mean volume (Bld) [Entitic vol] 10.90 fL Normal 7.50-12.50 [facility] Comment on above: Performed By: #### T SH reflex FT4, LIPD, CMP, CBCAD #### [facility] [address] [place], [place] [id number] Platelets (Bld) [#/Vol] 212 10*3/uL Normal 140-400 [facility] Comment on above: Performed By: #### T SH reflex FT4, LIPD, CMP, CBCAD #### [facility] [address] [place], [place] [id number] RBC (Bld) [#/Vol] 4.75 10*6/uL Normal 3.90-5.20 [facility] Comment on above: Performed By: #### T SH reflex FT4, LIPD, CMP, CBCAD #### [facility] [address] [place], [place] [id number] RDW-SD 47.4 fL Normal 37.0-50.0 [facility] Comment on above: Performed By: #### T SH reflex FT4, LIPD, CMP, CBCAD #### [facility] [address] [place], [place] [id number] WBC (Bld) [#/Vol] 6.3 10*3/uL Normal 3.8-11.[address] [facility] Comment on above: Performed By: #### T SH reflex FT4, LIPD, CMP, CBCAD #### [facility] [address] [place] [id number] Comprehensive Metabolic Pane brie 04-05-2021 Albumin [Mass/Vol] 4.1 g/dL Normal 3.6-5.[address] [facility] Comment on above: Performed By: #### T SH reflex FT4, LIPD, CMP, CBCAD #### [facility] [address] [place], [place] [id number] Albumin/Globulin [Mass ratio] 1.5 {ratio} Normal 1.0-2.5 [facility] Specialist Comment on above: Performed By: #### T SH reflex FT4, LIPD, CMP, CBCAD #### [facility] [address] [place], [place] [id number] ALP [Catalytic activity/Vol] 125 U/L High 35-119 [facility] Specialist Comment on above: Performed By: #### T SH reflex FT4, LIPD, CMP, CBCAD #### [facility] [address] [place], [place] [id number] ALT [Catalytic activity/Vol] 43 U/L High 6-33 [facility] Special[facility] Comment on above: Result Comment: 01/12 Female reference range changed. Performed By: #### T SH reflex FT4, LIPD, CMP, CBCAD #### [facility] [address] [facility] [place] [id number] Anion gap [Moles/Vol] 20 mmol/L Normal 12-20 [facility] Comment on above: Result Comment: Effe ctive 02/17/2019 reference range changed. Performed By: #### T SH reflex FT4, LIPD, CMP, CBCAD #### [facility] [address] [place] [id number] AST [Catalytic activity/Vol] 42 U/L High 9-34 [facility] Specialist Comment on above: Result Comment: Spec imen is hemolyzed. Results may be affected. Performed By: #### T SH reflex FT4, LIPD, CMP, CBCAD #### [facility] [address] [place] [id number] Bilirubin [Mass/Vol] 0.41 mg/dL Normal 0.30-1.20 [facility] Comment on above: Performed By: #### T SH reflex FT4, LIPD, CMP, CBCAD #### [facility] [address] [place], [place] [id number] BUN/CREA 25 Ratio High 6-22 [facility] Comment on above: Performed By: #### T SH reflex FT4, LIPD, CMP, CBCAD #### [facility] [address], [place] [id number] Calcium [Mass/Vol] 10.3 mg/dL High 8.6-10.[address] [facility] Comment on above: Performed By: #### T SH reflex FT4, LIPD, CMP, CBCAD #### [facility] [address], [place] [id number] Chloride [Moles/Vol] 105 mmol/L Normal 98-107 [facility] Comment on above: Performed By: #### T SH reflex FT4, LIPD, CMP, CBCAD #### [facility] [address], [place] [id number] CO2 [Moles/Vol] 24 mmol/L Normal 20-31 [facility] Comment on above: Performed By: #### T SH reflex FT4, LIPD, CMP, CBCAD #### [facility] [address], [place] [id number] Creatinine [Mass/Vol] 1.2 mg/dL Normal 0.6-1.4 [facility] Comment on above: Performed By: #### T SH reflex FT4, LIPD, CMP, CBCAD #### [facility] [address], [place] [id number] eGFRAA 55 mL/min/1.73m2 Low >60 [facility] Specialist Comment on above: Performed By: #### T SH reflex FT4, LIPD, CMP, CBCAD #### [facility] [address], [place] [id number] eGFRNAA 45 mL/min/1.73m2 Low >60 [facility] Special[facility] Comment on above: Performed By: #### T SH reflex FT4, LIPD, CMP, CBCAD #### [facility] [address], [place] [id number] Globulin (S) [Mass/Vol] 2.8 g/dL Normal 1.9-3.7 [facility] Library Assistant Comment on above: Performed By: #### T SH reflex FT4, LIPD, CMP, CBCAD #### [facility] [address], [place] [id number] Glucose [Mass/Vol] 118 mg/dL High 65-99 [facility] Comment on above: Result Comment: For FASTING Glucose --- ADA reference ranges: Normal 65-99 mg/dl Prediabetes 100-125 Diabetes >/= 126 Performed By: #### T SH reflex FT4, LIPD, CMP, CBCAD #### [facility] [address], [place] [id number] Potassium [Moles/Vol] 5.5 mmol/L Normal 3.5-5.5 [facility] Comment on above: Result Comment: Spec imen is hemolyzed. Results may be affected. Performed By: #### T SH reflex FT4, LIPD, CMP, CBCAD #### [facility] [address], [place] [id number] Protein [Mass/Vol] 6.9 g/dL Normal 6.1-8.1 [facility] Library Assistant Comment on above: Performed By: #### T SH reflex FT4, LIPD, CMP, CBCAD #### [facility] [address], [place] [id number] Sodium [Moles/Vol] 143 mmol/L Normal 135-146 [facility] Library Assistant Comment on above: Performed By: #### T SH reflex FT4, LIPD, CMP, CBCAD #### [facility] [address], [place] [id number] Urea nitrogen [Mass/Vol] 29 mg/dL High 7-25 [facility] Library Assistant Comment on above: Performed By: #### T SH reflex FT4, LIPD, CMP, CBCAD #### [facility] [address], [place] [id number] Lipid Panelon 04-05-2021 Cholesterol [Mass/Vol] 155 mg/dL Normal 125-200 [facility] Library Assistant Comment on above: Result Comment: Low risk < 200mg/dL Borderline risk 201-239 mg/dl High risk > or equal to 240 Performed By: #### T SH reflex FT4, LIPD, CMP, CBCAD #### [facility] [address], [place] [id number] Cholesterol in HDL [Mass/Vol] 52 mg/dL Normal >40 [facility] Specialist Comment on above: Result Comment: High Cardiovascular Risk HDL <40 mg/dL Low Cardiovascular Risk HDL > or equal to 60 mg/dl Performed By: #### T SH reflex FT4, LIPD, CMP, CBCAD #### [facility] [address], [place] [id number] Cholesterol in LDL [Mass/Vol] 80 mg/dL Normal [facility] Specialist Comment on above: Result Comment: LDL ATP III CLASSIFICATION LDL less than 100 mg/dl Optimal LDL 100-129 mg/dl Near or above optimal LDL 130-159 Borderline high LDL 160-189 High LDL greater than 189 mg/dl Very High Performed By: #### T SH reflex FT4, LIPD, CMP, CBCAD #### [facility] [address], [place] [id number] Cholesterol in VLDL [Mass/Vol] 23 mg/dL Normal [facility] Specialist Comment on above: Performed By: #### T SH reflex FT4, LIPD, CMP, CBCAD #### [facility] [address], [place] [id number] Cholesterol.total/Cho lesterol in HDL [Mass ratio] 3 {ratio} Normal [facility] Specialist Comment on above: Performed By: #### T SH reflex FT4, LIPD, CMP, CBCAD #### [facility] [address], [place] [id number] Triglyceride [Mass/Vol] 114 mg/dL Normal 30-150 [facility] Specialist Comment on above: Result Comment: TRIG ATPIII CLASSIFICATIONS TRIG less than 150 mg/dl Normal TRIG 150-199 mg/dl Borderline High TRIG 200-500 mg/dl High TRIG greather than 500 mg/dl Very High Performed By: #### T SH reflex FT4, LIPD, CMP, CBCAD #### [facility] [address], [place] [id number] TSH w/ Reflex to Free T4on 0 04-05-2021 TSH 2.830 uIU/mL Normal 0.400-4.500 [facility] io Video Library Assistant Comment on above: Performed By: #### T SH reflex FT4, LIPD, CMP, CBCAD #### [facility] [address] [place], [place] [id number] Basophils Auto (Bld) [#/Vol] Ordered By: Tru Urbina on 03-15-2021 Basophils (Bld) [#/Vol] 0.0 10*3/uL 0.0-0.2 [facility] Basophils/100 WBC Auto (Bld) Ordered By: Tru Urbina on 03-15-2021 Basophils/100 WBC (Bld) 0.2 % [facility] Blood hemoglobin measurement (mass/volume)Ordered By: Tru Urbina on 03-15-2021 Hemoglobin (Bld) [Mass/Vol] 14.2 g/dL 11.8-15.4 [facility] Blood leukocytes automated c ount (number/volume)Ordered By: Tru Urbina on 03-15-2021 WBC (Bld) [#/Vol] 8.8 10*3/uL 4.5-11.0 [facility] Eosinophils Auto (Bld) [#/Vo l]Ordered By: Tru Urbina on 03-15-2021 Eosinophils (Bld) [#/Vol] 0.1 10*3/uL 0.0-0.45 [facility] Eosinophils/100 WBC Auto (Bl d)Ordered By: Tru Urbina on 03-15-2021 Eosinophils/100 WBC (Bld) 0.8 % [facility] Erythrocyte distribution wid th Auto (RBC) [Ratio]Ordered By: Tru Urbina on 03-15-2021 Erythrocyte distribution width (RBC) [Ratio] 13.3 % 11.9-15.3 [facility] Glucose Glucometer (BldC) [M ass/Vol]Ordered By: Sandoval Trammell on 03-15-2021 Glucose [Mass/Vol] 115 mg/dL [facility] Comment on above: Random Glucose Refer ence Range is dependent on time and content of last meal. Glucose of more than 200 mg/dL in a nonstressed, ambulatory subject supports the diagnosis of Diabetes Mellitus. Hematocrit Auto (Bld) [Volum e fraction]Ordered By: Tru Urbina on 03-15-2021 Hematocrit (Bld) [Volume fraction] 42.6 % 34.0-46.4 [facility] Laboratory - Hematology and Cell countsOrdered By: Tru Urbina on 03-15-2021 Nucleated RBC/100 WBC (Bld) [Ratio] 0.1 % 0-0.5 [facility] Lymphocytes Auto (Bld) [#/Vo l]Ordered By: Tru Urbina on 03-15-2021 Lymphocytes (Bld) [#/Vol] 0.9 10*3/uL 1.00-4.8 [facility] Lymphocytes/100 WBC Auto (Bl d)Ordered By: Tru Urbina on 03-15-2021 Lymphocytes/100 WBC (Bld) 10.4 % [facility] MCH Auto (RBC) [Entitic mass ]Ordered By: Tru Urbina on 03-15-2021 MCH (RBC) [Entitic mass] 31.0 pg 24.7-34.3 [facility] MCHC Auto (RBC) [Mass/Vol]Or dered By: Tru Urbina on 03-15-2021 MCHC (RBC) [Mass/Vol] 33.2 g/dL 32.0-35.0 [facility] MCV Auto (RBC) [Entitic vol] Ordered By: Tru Urbina on 03-15-2021 MCV (RBC) [Entitic vol] 93.4 fL 80-100 [facility] Monocytes Auto (Bld) [#/Vol] Ordered By: Tru Urbina on 03-15-2021 Monocytes (Bld) [#/Vol] 1.1 10*3/uL 0.0-0.8 [facility] Monocytes/100 WBC Auto (Bld) Ordered By: Tru Urbina on 03-15-2021 Monocytes/100 WBC (Bld) 12.4 % [facility] Neutrophils Auto (Bld) [#/Vo l]Ordered By: Tru Urbina on 03-15-2021 Neutrophils (Bld) [#/Vol] 6.7 10*3/uL 1.8-7.7 [facility] Neutrophils/100 WBC Auto (Bl d)Ordered By: Tru Urbina on 03-15-2021 Neutrophils/100 WBC (Bld) 76.2 % [facility] No Panel InformationOrdered By: Sandoval Trammell on 03-15-2021 Bedside Glucose Comment Glu2: cleaned meter [facility] Platelet mean volume Auto (B ld) [Entitic vol]Ordered By: Tru Urbina on 03-15-2021 Platelet mean volume (Bld) [Entitic vol] 8.6 fL 6.3-10.7 [facility] Platelets Auto (Bld) [#/Vol] Ordered By: Tru Urbina on 03-15-2021 Platelets (Bld) [#/Vol] 171 10*3/uL 150-450 [facility] RBC Auto (Bld) [#/Vol]Ordere d By: Tru Urbina on 03-15-2021 RBC (Bld) [#/Vol] 4.57 10*6/uL 3.60-5.00 [facility] Creatinine and Glomerular fi ltration rate.predicted panel (S/P/Bld)Ordered By: Alpesh Lind on 02-22-2021 Creatinine [Mass/Vol] 1.10 mg/dL 0.44-1.03 [facility] Estimated glomerular filtrat ion rate (GFR) non- AmericanOrdered By: Alpesh Lind on 02-22-2021 GFR/1.73 sq M.predicted among non-blacks MDRD (S/P/Bld) [Vol rate/Area] 49 mL/Min [facility] No Panel InformationOrdered By: Alpesh Lind on 02-22-2021 Estimated GFR () 59 mL/Min [facility] Comment on above: GFR estimated refere nce range: According to KDOQI guidelines, <60 ml/min/1.73m2 is sufficient to diagnose a patient with chronic kidney disease. Pharmacy Creatinine Clearance (Chem 43.28 [facility] Serum or plasma calcium marcelle urement (mass/volume)Ordered By: Alpesh Lind on 02-22-2021 Calcium [Mass/Vol] 10.0 mg/dL 8.2-10.2 [facility] Serum or plasma chloride chandrika surement (moles/volume)Ordered By: Alpesh Lind on 02-22-2021 Chloride [Moles/Vol] 104 mmol/L 95-114 [facility] Serum or plasma glucose marcelle urement (mass/volume)Ordered By: Alpesh Lind on 02-22-2021 Glucose [Mass/Vol] 110 mg/dL 70-100 [facility] Comment on above: ADA recommended refe rence rangeRandom Glucose Reference Range is dependent on time and content of last meal. Glucose of more than 200 mg/dL in a nonstressed, ambulatory subject supports the diagnosis of Diabetes Mellitus. Serum or plasma potassium me asurement (moles/volume)Ordered By: Alpesh Lind on 02-22-2021 Potassium [Moles/Vol] 4.5 mmol/L 3.5-5.1 [facility] Serum or plasma sodium measu rement (moles/volume)Ordered By: Alpesh Lind on 02-22-2021 Sodium [Moles/Vol] 139 mmol/L 136-146 [facility] Serum or plasma total carbon dioxide measurement (moles/volume)Ordered By: Alpesh Lind on 02-22-2021 CO2 [Moles/Vol] 24.4 mmol/L 22.0-30.0 [facility] Serum or plasma urea nitroge n measurement (mass/volume)Ordered By: Alpesh Lind on 02-22-2021 Urea nitrogen [Mass/Vol] 26 mg/dL 11-04 [facility] PROF 14(COMP METB)on 021 Albumin [Mass/Vol] 3.3 g/dL Critically low 3.5-5.0 [facility] Comment on above: Performed By: #### C MP ####[facility] [address] [place], [place] [address]XnHilary Lewis Albumin/Globulin [Mass ratio] 0.9 {ratio} Normal [facility] Comment on above: Performed By: #### C MP ####[facility] [address] [place], [place] [address]Zh. Yilan Lewis ALP [Catalytic activity/Vol] 87 U/L Normal 38-126 [facility] Comment on above: Performed By: #### C MP ####[facility] [address] [place] [address]Dr. Krystal Lewis ALT [Catalytic activity/Vol] 18 U/L Normal 9-52 [facility] Comment on above: Performed By: #### C MP ####[facility] [address] [place], [place] [address]Dr. Krystal Joshua Anion gap [Moles/Vol] 10.8 mmol/L Normal Th [facility] Comment on above: Performed By: #### C MP ####[facility] [address] [place], [place] [address]Dr. Krystal Joshua AST [Catalytic activity/Vol] 16 U/L Normal 14-36 [facility] Comment on above: Performed By: #### C MP ####[facility] [address] [place], [place] [address]Dr. Krystal Joshua Bilirubin [Mass/Vol] 0.5 mg/dL Normal 0.2-1.3 [facility] Comment on above: Performed By: #### C MP ####[facility] [address] [place], [place] [address]Dr. Krystal Joshua Calcium [Mass/Vol] 9.8 mg/dL Normal 8.4-10.2 [facility] Comment on above: Performed By: #### C MP ####[facility] [address] [place], [place] [address]Dr. Krystal Joshua Chloride [Moles/Vol] 104 mmol/L Normal 98-107 [facility] [place] [facility] Comment on above: Performed By: #### C MP ####[facility] [address] [place], [place] [address]Dr. Krystal Lewis CO2 [Moles/Vol] 29.8 mmol/L Normal 22.0-30.0 [facility] Comment on above: Performed By: #### C MP ####[facility] [address] [place], [place] [address]Dr. Georgettedonell Lewis Creatinine [Mass/Vol] 1.01 mg/dL Normal 0.52-1.04 [facility] Comment on above: Performed By: #### C MP ####[facility] [address] [place] [address]Dr. Krystal Lewis EGFR-AF MACANESE >60 Normal >=60 The [facility] Comment on above: Performed By: #### C MP ####[facility] [address] [place] [address]Dr. Krystal Joshua EGFR-NON AF MACANESE 54 mL/min/1.73m2 Critically low >=60 [facility] Comment on above: Performed By: #### C MP ####[facility] [address] [place], [place] [address]Dr. Krystal Joshua Globulin (S) [Mass/Vol] 3.5 g/dL Normal [facility] Comment on above: Performed By: #### C MP ####[facility] [address] [place], [place] [address]Dr. Krystal Joshua Glucose [Mass/Vol] 93 mg/dL Normal 74-106 [facility] Comment on above: Performed By: #### C MP ####[facility] [address] [place], [place] [address]Dr. Krystal Joshua Potassium [Moles/Vol] 4.6 mmol/L Normal 3.4-5.0 [facility] Comment on above: Performed By: #### C MP ####[facility] [address] [place], [place] [address]Dr. Krystal Joshua Protein [Mass/Vol] 6.8 g/dL Normal 6.1-8.2 [facility] Comment on above: Performed By: #### C MP ####[facility] [address] [place], [place] [address]Dr. Krystal Joshua Sodium [Moles/Vol] 140 mmol/L Normal 137-145 [facility] Comment on above: Performed By: #### C MP ####[facility] [address] [place], [place] [address]Dr. Krystal Lewis Urea nitrogen [Mass/Vol] 27.0 mg/dL Critically high 7.0-17.0 [facility] Comment on above: Performed By: #### C MP ####[facility] [address] [place], [place] [address]Ls. Krystal Lewis Urea nitrogen/Creatinine [Mass ratio] 26.7 mg/mg Normal [facility] Comment on above: Performed By: #### C MP ####[facility] [address] [place], [place] [address]Ss. Krystal Lewis CARDIAC STRESS TESTon 2020 CARDIAC STRESS TEST The [place], [place] NAME: LILLY HORNE DATE OF : MEDICAL REC#: [id number] STATE TESTED NURSING ASSISTANT: [id number] IRINA ABDULLAHI ADMIT DATE: 01/24/2021 08:17:00 REPAIR SUPERVISOR DATE: 01/24/2021 11:00 DICTATING PHYSICIAN: CHRISTINA VALERA DICTATION DATE: 01/24/2021 10:00 LEXISCAN STRESS TEST WITH MYOCARDIAL PERFUSION IMAGING Procedure Date: 01-24-21 LEXISCAN STRESS TEST WITH MYOCARDIAL PERFUSION IMAGING Informed consent was obtained. The patient was attached to electrocardiographic monitoring an intravenous line was secured. Lexiscan was administered at 0.4 mg intravenously over 2 minutes. The electrocardiogram was monitored, vital signs were obtained. Cardiolite was administered following Lexiscan. The patient went on to obtain myocardial perfusion imaging. Baseline heart rate was 84 bpm, maximum heart rate was 99 bpm, resting blood pressure was 166/86 and maximum blood pressure was 166/86. Baseline ECG showed sinus rhythm with nonspecific ST-T wave changes and PVCs in trigeminal pattern. ECG following infusion of Lexiscan showed sinus rhythm with occasional PVCs happening in trigeminy at tomes with one couplet seen. There were no ischemic ECG changes seen. IMPRESSION: 1. No evidence of ischemic ECG changes seen following infusion of Lexiscan. 2. Sinus rhythm with PVCs occurring sometimes in trigeminal pattern. 3. Resting hypertension. 4. Myocardial perfusion images will be reported separately. Electronically Authenticated and Edited by: Christina Valera MD on 01/24/2021 07:09 PM [facility] Signed and Approved by: DR CHRISTINA VALERA 01/24/2021 19:09:00 Normal [facility] NM STRESS/REST MULTIon 01-24 NM STRESS/REST MULTI Patient: LILLY HORNE Exam Date: 01/24/2021 : 1950 Gender:F Ordering : DR ALLISON GONZALES M.D. Admission #: [id number] Family : Order #: [id number] CLICK HERE TO VIEW EXAM RADIOLOGY REPORT PROCEDURE: RADIONUCLIDE IMAGING STRESS/REST MULTI COMPARISON: NM STRESS/REST MULTI, 02/21/2016. INDICATIONS: Chronic ischemic heart disease I25.10 TECHNIQUE: Exam Description: Rest/Stress one day protocol gated SPECT Rest Imagin.0 mCi Tc-99m Cardiolite IV on 01/24/2021 Stress Imaging 29.6 mCi Tc-99m Cardiolite IV on 01/24/2021 Exercise Protocol: 0.4 mg Lexiscan given IV Heart Rate (bpm): Rest: 84 Max: 99 PMHR: 66 Blood Pressure: Rest: 166/86 Max: 166/86 Symptoms: Rest and peak stress ECG findings were normal and the exercise portion of the study was normal per attending physician Dr. Valera . For more details please see separate cardiac stress test report. FINDINGS: QUALITY OF STUDY: Good. PERFUSION DEFECT: LOCATION: Mid-anterior. Mid-anteroseptal. Apical anterior. [place]. SIZE: Medium (3-4 segments). SEVERITY: Severe. TYPE: Persistent. WALL MOTION: Akinesis: Mid-anterior. [place]. LV SIZE: Normal. 107 mL. TID / TCD: None; 0.7 LVEF: Abnormal. Calculated EF 44%. SUMMARY: Myocardial perfusion imaging study has ABNORMAL findings. CONCLUSION: 1. 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 Low left ventricular ejection fraction of 44% 3. Normal exercise test Dictated by: Jhonny Begum MD on 01/24/2021 at 14:03 Approved by: Jhonny Begum MD on 01/24/2021 at 14:05 Normal [facility] PROF CHEM 8 (BAS METB)on Anion gap [Moles/Vol] 14.1 mmol/L Normal [facility] Comment on above: Performed By: #### B MP #### [facility] [address] [place] [address] Dr. Krystal Lewis Calcium [Mass/Vol] 10.0 mg/dL Normal 8.4-10.2 [facility] Comment on above: Performed By: #### B MP #### [facility] [address] [place] [address] [address] Krystal Lewis Chloride [Moles/Vol] 105 mmol/L Normal 98-107 [facility] Comment on above: Performed By: #### B MP #### [facility] [address] [place] [address] [address] Krystal Lewis CO2 [Moles/Vol] 26.0 mmol/L Normal 22.0-30.0 The [facility] Comment on above: Performed By: #### B MP #### [facility] [address] [place] [address] Dr. Krystal Lewis Creatinine [Mass/Vol] 1.18 mg/dL Critically high 0.52-1.04 [facility] Comment on above: Performed By: #### B MP #### [facility] [address] [place] [address] Dr. Krystal Lewis EGFR-AF MACANESE 55 mL/min/1.73m2 Critically low >=60 [facility] Comment on above: Performed By: #### B MP #### [facility] [address] [place] [address] Dr. Krystal Lewis EGFR-NON AF MACANESE 45 mL/min/1.73m2 Critically low >=60 [facility] Comment on above: Performed By: #### B MP #### [facility] [address] [place] [address] [address] Krystal Lewis Glucose [Mass/Vol] 104 mg/dL Normal 74-106 [facility] Comment on above: Performed By: #### B MP #### [facility] [address] [place] [address] [address] Krystal Lewis Potassium [Moles/Vol] 5.1 mmol/L Critically high 3.4-5.0 [facility] Comment on above: Performed By: #### B MP #### [facility] [address] [place] [address] [address] Krystal Lewis Sodium [Moles/Vol] 140 mmol/L Normal 137-145 [facility] Comment on above: Performed By: #### B MP #### [facility] [address] [place] [address] [address] Krystal Lewis Urea nitrogen [Mass/Vol] 29.0 mg/dL Critically high 7.0-17.0 [facility] Comment on above: Performed By: #### B MP #### [facility] [address] [place] [address] [address] Krystal Lewis Urea nitrogen/Creatinine [Mass ratio] 24.6 mg/mg Normal [facility] Comment on above: Performed By: #### B MP #### [facility] [address] [address] [address] Krystal Lewis BNPon 11-20-2020 Natriuretic peptide B (Bld) [Mass/Vol] 1293.0 pg/mL Critically high <=900.0 [facility] Comment on above: Result Comment: TEST REPEATED CRITICAL VALUE VERIFIED Performed By: #### C MADM, BNP, CMP, CRP ####[facility] [address] [id number]. Krystal Lewis CARDIAC ALFREDO ADMITon 021 CK [Catalytic activity/Vol] 86 U/L Normal 30-135 [facility] Comment on above: Performed By: #### C MADM, BNP, CMP, CRP ####[facility] [address] [place] [address]Dr. Krystal Lewis CK.MB [Mass/Vol] ng/mL Normal <=2.37 [facility] Comment on above: Performed By: #### C MADM, BNP, CMP, CRP ####[facility] [address] [place] [address]Dr. Krystal Lewis HSTROP 26.5 pg/mL Normal 4.0-35.5 [facility] Comment on above: Result Comment: CUT- OFF POINTS HAVE BEEN ESTABLISHED BASED ON THE FOURTH UNIVERSAL DEFINITIONS OF MYOCARDIAL INFARCTION. THE UPPER REFERENCE LIMIT (URL) OF TROPONIN, DEFINED THE 99TH PERCENTILE OF cTnI DISTRIBUTION IN A REFERENCE POPULATION, HAS BEEN CONFIRMED THE DECISION THRESHOLD FOR [place] DIAGNOSIS. Performed By: #### C MADM, BNP, CMP, CRP ####[facility] [address] [place] [address]Dr. Krystal Lewis ANTONELLA 77.0 ng/mL Critically high <=61.5 [facility] Comment on above: Performed By: #### C MADM, BNP, CMP, CRP ####[facility] [address] [place] [address]Dr. Krystal Lewis CBC AUTO DIFFon 11-20-2020 BASO # 0.0 103/ul Normal 0.0-0.1 [facility] Comment on above: Performed By: #### C BC #### [facility] [address] [address] [address] Krystal Lewis Basophils/100 WBC (Bld) 0.2 % Normal 0.2-2.0 [facility] Comment on above: Performed By: #### C BC #### [facility] [address] [place] [address] Dr. Krystal Lewis EO # 0.0 103/ul Normal 0.0-0.7 [facility] Comment on above: Performed By: #### C BC #### [facility] [address] [place] [address] Dr. Krystal Lewis Eosinophils/100 WBC (Bld) 0.0 % Critically low 0.9-7.0 [facility] Comment on above: Performed By: #### C BC #### [facility] [address] [place] [address] Dr. Krystal Lewis Erythrocyte distribution width (RBC) [Ratio] 13.1 % Normal 11.0-15.0 [facility] Comment on above: Performed By: #### C BC #### [facility] [address] [place] [address] Dr. Krystal Lewis Hematocrit (Bld) [Volume fraction] 43.0 % Normal 36.0-48.0 [facility] Comment on above: Performed By: #### C BC #### [facility] [address] [place] [address] Dr. Krystal Lewis Hemoglobin (Bld) [Mass/Vol] 13.9 g/dL Normal 12.0-16.0 [facility] Comment on above: Performed By: #### C BC #### [facility] [address] [place] [address] Dr. Krystal Lewis IG # 0.03 10e3/ul Normal 0.00-0.03 [facility] Comment on above: Performed By: #### C BC #### [facility] [address] [place] [address] Dr. Krystal Lewis IG % 0.7 % Critically high 0.0-0.5 [facility] Comment on above: Performed By: #### C BC #### [facility] [address] [place] [address] Dr. Krystal Lewis LYMPH # 0.6 103/ul Critically low 1.2-3.8 [facility] Comment on above: Performed By: #### C BC #### [facility] [address] [place] [address] Dr. Krystal Lewis Lymphocytes/100 WBC (Bld) 13.8 % Critically low 20.5-60.0 [facility] Comment on above: Performed By: #### C BC #### [facility] [address] [place] [address] Dr. Krystal Lewis MANUAL DIFF REQ NO Normal [facility] Comment on above: Performed By: #### C BC #### [facility] [address] [place] [address] Dr. Krystal Lewis MCH (RBC) [Entitic mass] 30.6 pg Normal 26.7-34.0 [facility] Comment on above: Performed By: #### C BC #### [facility] [address] [place] [address] Dr. Krystal Lewis MCHC (RBC) [Mass/Vol] 32.3 g/dL Normal 29.9-35.2 [facility] Comment on above: Performed By: #### C BC #### [facility] [address] [place] [address] Dr. Krystal Lewis MCV (RBC) [Entitic vol] 94.7 fL Normal 81.0-99.0 [facility] Comment on above: Performed By: #### C BC #### [facility] [address] [place] [address] Dr. Krystal Lewis MONO # 0.4 103/ul Normal 0.3-0.8 [facility] Comment on above: Performed By: #### C BC #### [facility] [address] [place] [address] Dr. Krystal Lewis Monocytes/100 WBC (Bld) 9.4 % Normal 1.7-12.0 [facility] Comment on above: Performed By: #### C BC #### [facility] [address] [place] [address] Dr. Krystal Lewis NEUT # 3.3 103/ul Normal 1.4-6.5 [facility] Comment on above: Performed By: #### C BC #### [facility] [address] [place] [address] Dr. Krystal Lewis Neutrophils/100 WBC (Bld) 75.9 % Critically high 43.0-75.0 [facility] Comment on above: Performed By: #### C BC #### [facility] [address] [place] [address] Dr. Krystal Lewis Platelet mean volume (Bld) [Entitic vol] 10.3 fL Normal 9.5-13.5 [facility] Comment on above: Performed By: #### C BC #### [facility] [address] [place] [address] Dr. Krystal Lewis PLT 128 103/ul Critically low 150-450 [facility] Comment on above: Performed By: #### C BC #### [facility] [address] [place] [address] Dr. Krystal Lewis RBC 4.54 106/ul Normal 4.20-5.40 [facility] Comment on above: Performed By: #### C BC #### [facility] [address] [place] [address] Dr. Krystal Lewis WBC 4.3 103/ul Normal 4.0-11.0 [facility] Comment on above: Performed By: #### C BC #### [facility] [address] [address] [address] Krystal Lewis CRPon 11-20-2020 CRP 6.4 mg/dL Critically high <=1.0 [facility] Comment on above: Performed By: #### C MADM, BNP, CMP, CRP #### [facility] [address] [address] [address] Krystal Lewis PROF 14(COMP METB)on 021 Albumin [Mass/Vol] 2.9 g/dL Critically low 3.5-5.0 [facility] Comment on above: Performed By: #### C MADM, BNP, CMP, CRP #### [facility] [address] [address] [address] Krystal Lewis Albumin/Globulin [Mass ratio] 0.7 {ratio} Normal [facility] Comment on above: Performed By: #### C MADM, BNP, CMP, CRP #### [facility] [address] [address] [address] Krystal Lewis ALP [Catalytic activity/Vol] 54 U/L Normal 38-126 [facility] Comment on above: Performed By: #### C MADM, BNP, CMP, CRP #### [facility] [address] [address] [address] Krystal Lewis ALT [Catalytic activity/Vol] 18 U/L Normal 9-52 [facility] Comment on above: Performed By: #### C MADM, BNP, CMP, CRP #### [facility] [address] [address] [address] Krystal Lewis Anion gap [Moles/Vol] 14.4 mmol/L Normal [facility] Comment on above: Performed By: #### C MADM, BNP, CMP, CRP #### [facility] [address] [place] [address] Dr. Krystal Lewis AST [Catalytic activity/Vol] 36 U/L Normal 14-36 [facility] Comment on above: Performed By: #### C MADM, BNP, CMP, CRP #### [facility] [address] [place] [address] Dr. Krystal Lewis Bilirubin [Mass/Vol] 0.7 mg/dL Normal 0.2-1.3 [facility] Comment on above: Performed By: #### C MADM, BNP, CMP, CRP #### [facility] [address] [address] [address] Krystal Lewis Calcium [Mass/Vol] 9.3 mg/dL Normal 8.4-10.2 [facility] Comment on above: Performed By: #### C MADM, BNP, CMP, CRP #### [facility] [address] [place] [address] Dr. Krystal Lewis Chloride [Moles/Vol] 98 mmol/L Normal 98-107 [facility] Comment on above: Performed By: #### C MADM, BNP, CMP, CRP #### [facility] [address] [place] [address] Dr. Krystal Lewis CO2 [Moles/Vol] 27.7 mmol/L Normal 22.0-30.0 [facility] Comment on above: Performed By: #### C MADM, BNP, CMP, CRP #### [facility] [address] [place] [address] Dr. Krystal Lewis Creatinine [Mass/Vol] 1.23 mg/dL Critically high 0.52-1.04 [facility] Comment on above: Performed By: #### C MADM, BNP, CMP, CRP #### [facility] [address] [place] [address] Dr. Krystal Lewis EGFR-AF MACANESE 52 mL/min/1.73m2 Critically low >=60 [facility] Comment on above: Performed By: #### C MADM, BNP, CMP, CRP #### [facility] [address] [place] [address] Dr. Krystal Lewis EGFR-NON AF MACANESE 43 mL/min/1.73m2 Critically low >=60 [facility] Comment on above: Performed By: #### C MADM, BNP, CMP, CRP #### [facility] [address] [place] [address] Dr. Krystal Lewis Globulin (S) [Mass/Vol] 4.1 g/dL Normal [facility] Comment on above: Performed By: #### C MADM, BNP, CMP, CRP #### [facility] [address] [address] [address] Krystal Lewis Glucose [Mass/Vol] 154 mg/dL Critically high 74-106 [facility] Comment on above: Performed By: #### C MADM, BNP, CMP, CRP #### [facility] [address] [address] [address] Krystal Lewis Potassium [Moles/Vol] 4.1 mmol/L Normal 3.4-5.0 [facility] Comment on above: Performed By: #### C MADM, BNP, CMP, CRP #### [facility] [address] [place] [address] Dr. Krystal Lewis Protein [Mass/Vol] 7.0 g/dL Normal 6.1-8.2 [facility] Comment on above: Performed By: #### C MADM, BNP, CMP, CRP #### [facility] [address] [address] [address] Krystal Lewis Sodium [Moles/Vol] 136 mmol/L Critically low 137-145 [facility] Comment on above: Performed By: #### C MADM, BNP, CMP, CRP #### [facility] [address] [address] [address] Krystal Lewis Urea nitrogen [Mass/Vol] 32.0 mg/dL Critically high 7.0-17.0 [facility] Comment on above: Performed By: #### C MADM, BNP, CMP, CRP #### [facility] [address] [address] [address] Krystal Lewis Urea nitrogen/Creatinine [Mass ratio] 26.0 mg/mg Normal [facility] Comment on above: Performed By: #### C MADM, BNP, CMP, CRP #### [facility] [address] [place] [address] Dr. Krystal Lewis XR CHEST 1 Von 11-20-2020 XR CHEST 1 V EXAMINATION: XR CHES T 1 V HISTORY: SHORTNESS OF BREATH COMPARISON: 10/07/2019 TECHNIQUE: AP portable erect FINDINGS: LUNGS: Mild patchy parenchymal opacities most significant in the right upper and left midlung VASCULATURE: No increased pulmonary vasculature. PLEURA: No pneumothorax, effusion, or pleural thickening. CARDIAC: No cardiomegaly or cardiac silhouette abnormality. MEDIASTINUM: No visible mass or adenopathy. Median sternotomy wires BONES: No fracture or visible bone lesion. OTHER: EKG wires IMPRESSION: Mild multifocal opacities, consider pneumonia Electronically authenticated by: JHONNY BEGUM Date: 2020-11-20 13:55 Normal [facility] AUD - Assessmentson 10-27-19 20 AUD - Assessments [id number]#1.00C D:127 Normal [facility] Coding Summary.on 10-27-2019 Coding Summary. CODING DATE: 020 FINAL [facility] STATUS: PAYOR: Medicare APC DESCRIPTION 5722 Level 2 Diagnostic Tests and Related Services ADMIT DX: REASON FOR VISIT DX: H90.5 Unspecified sensorineural hearing loss FINAL DX: PRINCIPAL: H90.5 Unspecified sensorineural hearing loss SECONDARY: PYMT PROC APC STAT DESCRIPTION DOCTOR NAME DATE NOTE: The code number assigned matches the documented diagnosis and / or procedure in the patient's chart. However, the narrative phrase printed from the coding software may appear abbreviated, or result in slightly different terminology. Coded By: Swapna Jay CphT Date Saved: 10/27/2019 03:37 pm Normal [facility] Outside Records Officeon Outside Records Office [id number]#1.00C D:127 Normal [facility] AUD - Orderson 10-23-2019 AUD - Orders [id number]#1.00C D:127 Normal [facility] AUD - Otheron 10-23-2019 AUD - Other [id number]#1.00C D:127 Normal [facility] Consenton 10-23-2019 Consent [id number]#1.00C D:127 [facility] Outside Records Officeon Outside Records Office [id number]#1.00C D:127 [facility] Vital Signs Date Time Vital Sign Value Performing Clinician Umer donnelly 03-28-2021 11:12-0500 Body temperature 98 [degF] MD Oz Schillign Work Phone: [facility] 03-28-2021 11:12-0500 Body weight 68.58 kg MD Oz Schilling Work Phone: [facility] 03-28-2021 11:12-0500 Diastolic blood pressure 66 mm[Hg] MD Oz Schilling Work Phone: [facility] 03-28-2021 11:12-0500 Heart rate 80 /min MD Oz Schilling Work Phone: [facility] 03-28-2021 11:12-0500 Respiratory rate 20 /min MD Oz Schilling Work Phone: [facility] 03-28-2021 11:12-0500 SaO2% (BldA) [Mass fraction] 99 % MD Oz Schilling Work Phone: [facility] 03-28-2021 11:12-0500 Systolic blood pressure 109 mm[Hg] MD Oz Schilling Work Phone: [facility] 03-15-2021 15:30-0500 Diastolic blood pressure 60 mm[Hg] MD Oz Schilling Work Phone: [facility] 03-15-2021 15:30-0500 Heart rate 67 /min MD Oz Schilling Work Phone: [facility] 03-15-2021 15:30-0500 Respiratory rate 16 /min MD Oz Schilling Work Phone: [facility] 03-15-2021 15:30-0500 SaO2% (BldA) [Mass fraction] 96 % MD Oz Schilling Work Phone: [facility] 03-15-2021 15:30-0500 Systolic blood pressure 104 mm[Hg] MD Oz Schilling Work Phone: [facility] 03-15-2021 12:36-0500 Body temperature 97.6 [degF] MD Oz Schilling Work Phone: [facility] 03-15-2021 12:36-0500 Inhaled oxygen flow rate 8 L/min MD Oz Schilling Work Phone: [facility] 03-15-2021 11:17-0500 Body height 162.56 cm MD Oz Schilling Work Phone: [facility] 03-15-2021 11:17-0500 Body mass index (BMI) [Ratio] 25.7 kg/m2 MD Oz Schilling Work Phone: [facility] 03-15-2021 11:17-0500 Body weight 68.03 kg MD Oz Schilling Work Phone: [facility] 02-22-2021 14:37-0500 Diastolic blood pressure 66 mm[Hg] MD Oz Schilling Work Phone: [facility] 02-22-2021 14:37-0500 Heart rate 68 /min MD Oz Schilling Work Phone: [facility] 02-22-2021 14:37-0500 Respiratory rate 16 /min MD Oz Schilling Work Phone: [facility] 02-22-2021 14:37-0500 SaO2% (BldA) [Mass fraction] 97 % MD Oz Schilling Work Phone: [facility] 02-22-2021 14:37-0500 Systolic blood pressure 129 mm[Hg] MD Oz Schilling Work Phone: [facility] 02-22-2021 13:52-0500 Inhaled oxygen flow rate 6 L/min MD Oz Schilling Work Phone: [facility] 02-22-2021 12:14-0500 Body mass index (BMI) [Ratio] 25 kg/m2 MD Oz Schilling Work Phone: [facility] 02-22-2021 11:11-0500 Body height 162.56 cm MD Oz Schilling Work Phone: [facility] 02-22-2021 11:11-0500 Body weight 66.22 kg MD Oz Schilling Work Phone: [facility] 02-22-2021 10:19-050 Body temperature 98.1 [degF] MD Oz Schilling Work Phone: [facility] 12-31-2020 15:13-0500 Body height 162.56 cm MD Oz Schilling Work Phone: [facility] Encounters Encounter Date Encounter Type Care Provider Facility Start: 02-26-2023 End: 02-26-2023 ambulatory SANDOVAL TRAMMELL Not Available Start: 01-15-2023 End: 01-15-2023 ambulatory OZ SCHILLING Not Available Start: 11-21-2022 End: 11-21-2022 ambulatory Sandoval Trammell Facility:[facility] Start: 10-02-2022 End: 10-02-2022 ambulatory [facility] Start: 10-02-2022 End: 10-02-2022 Encounter for other preprocedural examination [facility] Start: 10-21-2021 End: 10-22-[address] OZ SCHILLING Facility:[facility] Start: 07-13-2021 End: 07-14-2021 ambulatory YUMIKO BENITEZ Facility:[facility] Start: 05-18-2021 End: 05-18-2021 Patient encounter procedure MD Oz Schilling Work Phone: [facility] [address] Start: 04-18-2021 End: 04-19-[address] OZ SCHILLING Facility:[facility] Start: 03-28-2021 Registered Recurring MD [facility]illing [facility] Start: 03-15-2021 End: 03-15-2021 Admission to same day surgery center MD [facility] Schilling [facility] Start: 02-22-2021 End: 02-22-2021 Admission to same day surgery center MD [facility] Schilling [facility] Start: 02-09-2021 End: 02-10-[address] ALLISON GONZALES Facility:[facility] Start: 01-24-2021 End: 01-25-[address] JHONNY BEGUM Facility:[facility] Start: 11-20-2020 End: 11-20-[address] JUAN APODACA Facility:[facility] Start: 11-18-2020 End: 11-18-[address] JHONNY BEGUM Facility:[facility] Start: 07-17-2017 End: 07-18-2017 Ambulatory DEFAULT PHYSICIAN Facility:[facility] Procedures Date Procedure Procedure Detail Performing Clinician Start: 05-18-2021 Magnetic resonance cholangiopancreatography MD Oz Schilling Work Phone: Start: 03-15-2021 Lumpectomy of right breast MD Oz Schilling Work Phone: Start: 02-22-2021 Mammography of right breast specimen MD Oz Schilling Work Phone: Start: 02-22-2021 Lumpectomy of right breast MD Oz Schilling Work Phone: Start: 02-22-2021 Excision of cyst MD Oz Schilling Work Phone: Start: 02-22-2021 Radionuclide sentinel lymph node study MD Oz Schilling Work Phone: Start: 02-22-2021 Mammography of right breast MD Oz natarajan Work Phone: Start: 02-22-2021 Ultrasonography guided needle localization of lesion of right breast MD Oz Schilling Work Phone: History of coronary artery bypass grafting Hx of CABG MD Oz Schilling Work Phone: Plan of Treatment Date Care Activity Detail Author Patient referral Red cameron [facility] Work Phone: Payers Date Payer Category Payer Self-pay [id number] 1960 Medicare [id number] 1960 Unknown [id number] 1950 Unknown [id number] 2.16.84 [id number] 1950 Unknown [id number] 2.16.84 [id number] 1950 Unknown [id number] 2.16.84 [id number] 1950 Unknown [id number] 2.16.84 [id number] 1949 Unknown [id number] 2.16.84 [id number] 1949 Unknown [id number] 2.16.84 [id number] 1949 Unknown [id number] 2.16.84 [id number] 1949 Unknown [id number] 2.16.84 [id number] 1949 Unknown [id number] 2.16.84 [id number] 1949 Unknown [id number] 2.16.840 .[id number] Private Health Insurance [id number] Unknown Unknown [id number] 2.16.8 [id number] Social History Date Type Detail Facility Start: 03-15-2021 Tobacco smoking stat us [facility] Ex-smoker (finding) [facility] Start: 1950 Sex Assigned At Female F [facility] Medical Equipment Procedure Code Equipment Code Equipment Origin al Text Equipment Identifier Dates Biopsy, breast, with lumpectomy Imaging lesion localization marker, implantable [id number] FDA Start: 02-22-2021 Goals Date Patient Goal Desired Activity /State Progress note 10-02-2022 Note Date & Type Note Facility 10-02-2022 Note [facility] Cardiology Clinic Note Chief Complaint: Patient here for surgery clearance prior to colonoscopy with Dr. Trammell at [facility]. She is doing very well and has no cardiac complaints at this time. HPI: Lilly Horne is a 72 y.o. female Patient here for 6 mo f/u chronic systolic heart failure, CAD, and mitral valve disorder. She was diagnosed with breast cancer about 6-8 weeks ago. Not sure yet if she will need to undergo chemotherapy and/or radiation. Denies chest pain and SOB. Gets lightheaded at times. Mrs Horne is doing fairly well from a cardiovascular standpoint No chest pain, no worsening shortness of breath She does not have true syncope; her symptoms sound like orthostasis. She becomes somewhat lightheaded and dizzy if she stands up too quickly. In addition her left leg gives way . She denies actual blackouts. No orthopnea, no paroxysmal ~dyspnea, no lower extremity edema. Unfortunately, was recently diagnosed with breast cancer and may need surgical intervention. Is seen a surgeon and oncologist. UPDATE 10/02/2022; Doing fairly well; no significant cardiac symptoms Recently diagnosed with breast cancer; had surgery apparently under general anesthesia. There was some concern with her heart postoperatively. I do not have the details. Was advised to undergo colonoscopy by her family physician. No blood in the stools. Cardiology ROS: Review of Systems Psychiatric/Behavioral: Positive for memory loss. All other systems reviewed and are negative. Past Medical History She has no past medical history on file. Surgical History She has no past surgical history on file. Social History She has no history on file for tobacco use, alcohol use, and drug use. Family History No family history on file. Allergies Patient has no allergy information on record. Medications No current outpatient medications on file. Last Recorded Vitals BP 104/60 (BP Location: Left arm, Patient Position: Sitting) Pulse 51 Ht 1.651 m (5' 5 ) Wt 66.2 kg (146 lb) SpO2 (!) 89% BMI 24.30 kg/m??? Physical Examination: GENERAL: alert and oriented x3, well developed, in no acute distress. HEAD: atraumatic, normocephalic. EYES: RALPH, EOMI. NECK: trachea midline, no JVD present, no carotid bruits present. CARDIAC: S1, S2 present. RRR. No murmur, rubs, or gallops. RESPIRATORY: CTAB, no increased effort of breathing, no rales, rhonchi, or wheezing. ABDOMEN: soft, nontender, nondistended. EXTREMITIES: no lower extremity edema, peripheral pulses are 2+ bilaterally. No rash/skin discoloration present. NEURO: strength/sensation equal and symmetric in bilateral upper and lower extremities. PSYCH: appropriate mood, affect, and judgement. INVESTIGATIONS: Tilt table test 07/26/2020: Negative study for syncope Transthoracic echocardiogram 08/18/2020 Global left ventricular systolic function is severely reduced; ejection fraction is 25 to 30%. Segmental wall motion abnormalities seen. Grade 1 diastolic dysfunction. Mobile interatrial septum with interatrial shunting consistent with patent kelley [place] or small secundum atrial septal defect. Normal left and right atrial sizes suggest a PFO. Right ventricle is normal in size and systolic function. No significant valvular abnormalities. MUGA scan 10/2018: EF is 37%. Labs 11/20/2030: Serum creatinine 1.23, potassium normal 12-lead EKG 10/02/2022: Sinus rhythm, 74 bpm, premature atrial complexes, anterolateral infarct age-indeterminate, T wave inversion consider ischemia Assessment: mitral valve disorder Provided mitral valve stenosis: care instructions coronary arteriosclerosis in [place] artery disorder of lipid metabolism abnormal results of cardiovascular function studies ischemic heart disease Type 2 diabetes mellitus without complication Provided type 2 diabetes: care instructions hyperlipidemia Provided high cholesterol: care instructions mitral valve regurgitation Moderate 2017, Trivial 2019 Provided heart valve disease: care instructions Provided mitral valve regurgitation: care instructions chronic systolic heart failure EF 40 percent by MUGA scan 37% 2019 syncope Nml TILT TABLE Likely neuromuscular - legs give out - I don't pass out Provided fainting: care instructions Provided lightheadedness or faintness: care instructions pre-surgery evaluation Abnormal EKG Plan: Given abnormal EKG, history of coronary artery disease and reduced ejection fraction, and need for upcoming procedures, I recommended proceeding with a Lexiscan stress test For serial monitoring of her valvular heart disease, we will repeat an echocardiogram Continue current medical therapy including aspirin, beta-mervin, Entresto, and Jardiance Consider addition of spironolactone Further recommendations pending the above Ehab A MD Sunitha, MPH, [facility], [facility], [facility] Interventional Cardiology Pager ( (more content not included)... [facility] Clinical Note 11-18-2020 Note Date & Type Note Facility 11-18-2020 Note PROCEDURE: XR SHOULD ER RT 2V or > COMPARISON: None. HISTORY: Pain of right shoulder joint FINDINGS: BONES:No acute fracture or dislocation. The glenohumeral joints are intact. 3 mm of subacromial spurring. SOFT TISSUES:Negative. No visible soft tissue swelling. EFFUSION:None visible. OTHER: Moderate degenerative changes of the spine. Calcified hilar lymph nodes. Vascular calcifications. IMPRESSION: Mild degenerative changes Electronically authenticated by: JHONNY BEGUM Date: 2020-11-18 14:15 [facility] Evaluation note Note Date & Type Note Facility Evaluation note Diagnosis Onset Date Abnormal ECG acute Coronary artery disease acut e Hx of CABG acute Ischemic cardiomyopathy acut e Adenoid cystic carcinoma of breast acute [facility] Work Phone: Evaluation note Note Date & Type Note Facility Evaluation note No assessment information availa ble [facility] Work Phone: Hospital Discharge instructions Note Date & Type Note Facility Hospital Discharge instructions [facility] Work Phone: Hospital Discharge instructions Note Date & Type Note Facility Hospital Discharge instructions [facility] Work Phone: Summary Purpose Family History No Family History Records Found Relationship Condition Age at Onset Recorded Date/T noe father Hypertension Unknown family member Heart disease Unknown grandparent Diabetes mellitus Unknown grandparent Malignant neoplasm Unknown Advance Directives No Advanced Directives Records Found Advance Directive Response Recorded Date/ Time Advance Directives No January 17, 2021 9:59am Chief Complaint and Reason for Visit Chief Complaint Rigt Breast Cancer, Back Cyst Right Breast Cancer, Positive Margin BREAST CANCER r10.84 Reason for Visit Abnormal ECG Coronary artery disease Hx of CABG Ischemic cardiomyopathy Adenoid cystic carcinoma of breast Chief Complaint Right Breast Cancer, Positive Margin BREAST CANCER r10.84 Reason for Visit Abnormal ECG Coronary artery disease Hx of CABG Ischemic cardiomyopathy Adenoid cystic carcinoma of breast Additional Source Comments INFORMATION SOURCE (unrecogn ized section and content) DATE CREATED AUTHOR 07/31/2017 [facility] DATE CREATED AUTHOR AUTHOR'S ORGANIZ ATION 01/23/2020 [facility] DATE CREATED AUTHOR AUTHOR'S ORGANIZ ATION 04/06/2021 [facility] DATE CREATED AUTHOR AUTHOR'S ORGANIZ ATION 11/12/2021 [facility] DATE CREATED AUTHOR AUTHOR'S ORGANIZ ATION 10/02/2022 [facility] DATE CREATED AUTHOR AUTHOR'S ORGANIZ ATION 11/28/2022 [facility] DATE CREATED AUTHOR AUTHOR'S ORGANIZ ATION 02/27/2023 [facility] Specialists EPIC Care Teams (unrecognized sec tion and content) Team Status: Inactive Member Role Status Marcelle Schilling MD Primary Care Provider, Attending Pro vider Active Team Status: Inactive Member Role Status Dates Oz Schilling MD Primary Care Provider Active Sandoval Trammell DO Attending Provider Active Team Status: Active Member Role Status Dates Oz Schilling MD Primary Care Provider Active Wai Duvall II, DO Attending Provider Active Team Status: Active Member Role Status Marcelle Schilling MD Primary Care Provider Active Goals (unrecognized section and content) Goals may be documented in a n alternate section FOR RECORDS PERTAINING TO PATIENTS WHO ARE OR HAVE BEEN ENROLLED IN A CHEMICAL DEPENDENCY/SUBSTANCEABUSE PROGRAM, SOME INFORMATION MAY BE OMITTED. This clinical summary was aggregated from multiple sources. Caution should be exercised in using it in the provision of clinical care. This summary normalizes information from multiple sources, and as a consequence, information in this document may materially change the coding, format and clinical context of patient data. In addition, data may be omitted in some cases. CLINICAL DECISIONS SHOULD BE BASED ON THE PRIMARY CLINICAL RECORDS. [facility] [employer] [facility]. provides no warranty or guarantee of the accuracy or completeness of information in this document.
== END 2023-03-30 15:14 | disposition home or self-care (01) ==
LOC: CT 15:13
PROVIDERS: PCP Family Medicine; Visit Provider Internal Medicine
DX: J69.0 Pneumonitis due to inhalation of food and vomit (principal)
CPT/HCPCS: 71250

== ENCOUNTER 2024-05-15 12:46 | Outpatient (OUT) | payer MEDICARE, OTHER, SELFPAY ==
--- NOTE | 2024-05-15 13:00 | CA_ITS ---
ECHOCARDIOGRAM REPORT PROCEDURE: CA ECHO DOPPLER COMPLETE INDICATIONS: Chronic heart failure, CABGx4, NV, stroke, hypertension, diabetes COMPARISON: None. DESCRIPTION: COMPLETE ECHOCARDIOGRAM Real-time transthoracic echocardiography with 2D, M-mode, spectral and color flow Doppler performed. QUALITY: Technical quality was good. LEFT VENTRICLE: Normal chamber size. Mild Proximal septal hypertrophy (sigmoid septum). The distal portion of the heart tillman in addition to mid anterior and mid septal segments are akinetic. LV EF: Severely reduced left ventricular systolic function, ejection fraction 30% DIASTOLIC: Grade I diastolic dysfunction. ATRIAL SEPTUM: Appears intact LEFT ATRIUM: Normal chamber size. RIGHT ATRIUM: Normal chamber size. RIGHT VENTRICLE: Normal chamber size. Decreased right ventricular systolic function. TRICUSPID VALVE: Normal mobility and thickness. No stenosis with trivial regurgitation. Cannot calculate RVSP due to lack of adequate tricuspid regurgitation signal MITRAL VALVE: Normal mobility and thickness. No evidence of mitral valve stenosis. There is no mitral annular calcification. Trivial to mild mitral regurgitation. AORTIC VALVE: Normal trileaflet appearance. No visible sclerosis. Normal leaflet mobility. No evidence of aortic valve stenosis. Trivial aortic regurgitation. AORTIC ROOT: Normal diameter and appearance. PULMONIC VALVE: Normal thickness and mobility. No stenosis. No regurgitation. PERICARDIUM: No evidence of pericardial effusion. IVC: Not well visualized. PLEURA: CONCLUSION: Severely reduced left ventricular systolic function with akinetic distal segments of all cardiac tillman in addition to the mid segment of anterior and septal tillman, ejection fraction 30% Grade 1 diastolic dysfunction Normal right ventricle size but reduced systolic function Trivial aortic regurgitation Trivial to mild mitral regurgitation Adult Echocardiography Procedure Report Left Ventricle LVEDD (3.7 - 5.6 cm): 4.36 cm LVESD (2.2 - 4.0 cm): 3.68 cm LVIVS thickness (0.6 - 1.2 cm): 1.21 cm LVPW thickness (0.5 - 1.0 cm): 1.00 cm e': 0.09 m/s E - e': 6.86 LVOT Max Gradient: 1.56 mm[Hg] LVOT Area (cm2): 0.63 m/s Peak Velocity (LVOT): 0.63 m/s Mean Velocity (LVOT): 0.47 m/s LVOT Diameter 2.04 cm Left Ventricular Ejection Fraction: Left Atrium LA Volume Index (2D A2C): 27.45 ml/m2 Left Atrium Systolic Dimension: 4.53 cm Mitral Valve MV E to A Ratio: 0.77 MV Max Gradient: MV Mean Gradient: Mitral Valve A-Wave Peak Velocity: 0.79 m/s Mitral Valve E-Wave Peak Velocity: 0.62 m/s Cardiovascular Orifice Area: Right Ventricle RV Internal Diastolic Dimension: Aorta AO Root Diam: 3.09 cm Ascending Ao Diam: Aortic Valve AoV Area (Peak Kiran): 1.43 cm2, 1.43 cm2 AoV Area (VTI): 1.46 cm2, 1.46 cm2 Deceleration Bay: Pressure Half-Time: Peak Velocity(Antegrade Flow): 1.42 m/s Peak Gradient(Antegrade Flow): 8.08 mm[Hg] Mean Velocity(Antegrade Flow): 1.06 m/s Mean Gradient(Antegrade Flow): 5.06 mm[Hg] Velocity Time Integral: 35.57 cm Tricuspid Valve Peak Velocity (Regurgitant Flow): Peak Velocity: Pulmonic Valve Mean Gradient: 1.76 mm[Hg] Mean Velocity: 0.63 m/s Peak Velocity: 0.85 m/s, 0.77 m/s Peak Gradient: 2.36 mm[Hg], 2.92 mm[Hg] Right Atrium Right Atrium Systolic Pressure: 26.07 ml, 26.07 ml Dictated by: Josselyn Galeano MD on 05/15/2024 at 19:03 Approved by: Josselyn Galeano MD on 05/15/2024 at 19:14 Continued Report - Page [place] [id number]
== END 2024-05-15 12:47 | disposition home or self-care (01) ==
LOC: CARD 12:46
PROVIDERS: PCP Family Medicine; Visit Provider Internal Medicine Interventional Cardiology
DX: I50.42 Chronic combined systolic (congestive) and diastolic (congestive) heart failure (principal)
CPT/HCPCS: 93306

== ENCOUNTER 2024-07-01 08:27 | Outpatient (OUT) | payer MEDICARE, OTHER, SELFPAY ==
--- NOTE | 2024-07-01 08:00 | NM_ITS ---
Patient Name: ISABELLA HORNE MR#: [id number] : 1950 Exam Date: 07/01/2024 Ordering Doctor: DR GERMANIA HELTON M.D. RADIOLOGY REPORT PROCEDURE: NM ANTONELLA PERF SPECT REST STR COMPARISON: None. INDICATIONS: ABNORMAL ECHOCARDIOGRAM, CHRONIC SYSTOLIC HEART FAILURE TECHNIQUE: Exam Description: Stress/Rest one day protocol gated SPECT Rest Imagin.8 mCi Tc-99m Cardiolite IV on 07/01/2024 Stress Imaging 30.6 mCi Tc-99m Cardiolite IV on 07/01/2024 Exercise Protocol: 0.4 mg Lexiscan given IV Heart Rate (bpm): Rest: 72 Max: 83 PMHR: 57 Blood Pressure: Rest: 124/82 Max: 126/76 Symptoms: Rest and peak stress ECG findings were pending, and the exercise portion of the study was pending per attending physician [facility]. For more details, please see separate cardiac stress test report. FINDINGS: QUALITY OF STUDY: Good PERFUSION DEFECT: LOCATION: Anteroapical, apical, inferoapical SIZE: Large SEVERITY: Severe TYPE: Fixed WALL MOTION: Hypokinesis of the apical myocardium LV SIZE: 132 mL TID / TCD: 0.9 LVEF: Calculated EF 47%. SUMMARY: Myocardial perfusion imaging study is abnormal CONCLUSION: 1. Myocardial perfusion is abnormal 2. A large anteroapical, apical and inferoapical fixed defect suggestive of infarct is seen 3. No significant ischemia seen 4. Global left ventricular systolic function is mildly reduced; ejection fraction is 47% 5. No evidence of transient ischemic dilatation Dictated by: Germania Helton M.D. on 07/02/2024 at 16:34 Approved by: Germania Helton M.D. on 07/02/2024 at 16:37
--- OUTSIDE RECORDS SUMMARY | 2024-07-01 08:32 | XMS_ITS | CCD ---
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 Name Role Phone PHYSICIAN, DEFAULT Unavailable Unavailable PHYSICIAN, DEFAULT Unavailable Unavailable HONG SCHILLING Unavailable Unavailable MD Hong Schilling Primary Care Provider [phone] DO Bill Trammell Attending Provider [phone] DO Wai Duvall II Attending Provider MD Hong Schilling Attending Provider [phone] MD Hong Schilling Primary Care Provider DO Bill Trammell Attending Provider JANET, DR COOPER Consulting Unavailable ELTAHAWY, DR COOPER Admitting Unavailable ELTAHAWY, DR COOPER Attending Unavailable TONIE, DR PITTS Primary Care Unavailable TONIE, DR PITTS Primary Care Unavailable TONIE, DR PITTS Admitting Unavailable TONIE, DR PITTS Attending Unavailable TONIE, DR PITTS Consulting Unavailable JHONNY CAREY Unavailable ALAYUMIKO CUELLAR Primary Care Unavailable ITZKOWITZ, DR BILL Mack Consulting Unavaila ble ITZKOWICRYSTAL, DR BILL Mack Admitting Unavaila ble ITZKOWITZ, DR BILL Mack Attending Unavaila ble TONIE, DR PITTS Primary Care Unavailable MISC, DR MCDONALD Admitting Unavailable MISC, DR MCDONALD Attending Unavailable MISC, DR MCDONALD Consulting Unavailable ZIEBER, DR EDWIN Grier Consulting Unavailable SHY, DR JHONNY Franks [...] Care Unavailable TONIE, DR PITTS Consulting Unavailable Bill Trammell Attending Unavailable Bill Trammell Admitting Unavailable [place] nat[place]ajan Primary Care Unavailable MD Hong Schilling Primary Care Provider [phone] DO Bill Trammell Attending Provider Hong Schilling MD Primary Care Provider [phone] Hong Schilling MD Unavailable ARIEL LOPEZ Attending Unavailable YANNI ORTIZ Attending Unavailable TONIE, RUGEN M Attending Unavailable BETSEY BRIGGS Attending Unavailable TONIE, RUGEN M Referring Unavailable KIERRADANE Attending Unavailable TONIE, RUGEN M Referring Unavailable JAMILA CARCAMO Attending Unavailable TONIE, RUGEN M Referring Unavailable DANE LOZADA Attending Unavailable TONIE, RUGEN M Referring Unavailable KIERRADANE Attending Unavailable TONIE, RUGEN M Referring Unavailable BRIGGS BETSEY Attending Unavailable TONIE, RUGEN M Referring Unavailable FRANCHESCA CADENA Attending Unavailable TONIE, RUGEN M Referring Unavailable ELISEO CHOU Attending Unavailable TONIE, RUGEN M Referring Unavailable DANE LOZADA Attending Unavailable TONIE, RUGEN M Referring Unavailable KIERRADANE Attending Unavailable TONIE, RUGEN M Referring Unavailable BRIGGSBETSEY Attending Unavailable TONIE, RUGEN M Referring Unavailable ITZBILL KIRK H Attending Unavailable ARIEL LOPEZ Attending Unavailable BILL TRAMMELL Attending Unavailable ARIEL LOPEZ Attending Unavailable GERMANIA HELTON Attending Unavailable Allergies Allergy Classification Reported Allergen(s) Allergy Type Date of Onset Reaction(s) Facility (1 source) 27550,00; Translations: [09209,00] Propensity to adverse reactions (disorder) [address] [facility] Repository Medications Current Medications Medication Drug Class(es) Dates Sig (Normalized) Sig (Original) acetaminophen 325 mg / oxyCODONE hydrochloride 5 mg oral tablet (4 sources) Opioid Agonist Start: 02-22-2021 take 1 tablet by mouth every four to six hours Oxycodone-Acetam inophen (Percocet) 5-325 mg tablet Active 1 TAB PO EVERY 4-6 HOURS 7 2 February 22, 2021 aspirin 81 mg delayed release oral tablet (19 sources) Platelet Aggregation Inhibitor, Nonsteroidal Anti-inflammatory Drug Start: 12-31-2020 take 81 mg by mouth once daily Aspirin Active 81 MG PO Daily December 31, 2020 1:00am ASPIRIN 81 PO Ta ke by mouth Active carvedilol 3.125 mg oral tablet (19 sources) alpha-Adrenergic Mervin, beta-Adrenergic Mervin Start: 05-31-2024 take 1 tablet by mouth in the morning carvedilol (Coreg) 3.125 MG tablet 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) TAKE 1 TABLET TWICE DAILY 200 tablet 3 01/07/2023 Active cinnamon bark 500 mg oral capsule (19 sources) Start: 12-31-2020 take 1 capsule by mouth twice daily Cinnamon Bark (Cinnamon) 500 mg Capsule Active 500 MG PO Twice daily December 31, 2020 1:00am take 1 capsule by mouth once jones ly cinnamon 500 MG capsule Take 500 mg by mouth Daily Active empagliflozin 10 mg oral tablet (19 sources) Sodium-Glucose Cotransporter 2 Inhibitor Start: 05-05-2024 Jardiance 10 MG Indications: Type 2 diabetes mellitus with peripheral vascular disease (CMS/HCC) TAKE 1 TABLET EVERY DAY 90 tablet 3 05/05/2024 Active Start: 01-19-2021 Jardiance 10 M G Indications: Type 2 diabetes mellitus with peripheral vascular disease ([facility]/HCC) TAKE 1 TABLET EVERY DAY 90 tablet 3 04/16/2023 Active famotidine 20 mg oral tablet (19 sources) Histamine-2 Receptor Antagonist Start: 01-07-2024 famotidine (Pepcid) 20 MG tablet Indications: LPRD (laryngopharyngeal reflux disease) TAKE 1 TABLET AT BEDTIME 100 tablet 1 01/07/2024 Active Start: 12-31-2020 take 1 tablet by diogo th at bedtime famotidine (Pepcid) 20 MG tablet Indications: LPRD (laryngopharyngeal reflux disease) Take 1 tablet (20 mg) by mouth at bedtime 100 tablet 2 05/07/2023 Active ferrous sulfate 325 mg oral tablet (19 sources) Start: 01-08-2024 take 1 tablet by mouth every eight hours ferrous sulfate 325 (65 Fe) MG tablet Indications: Anemia, unspecified type Take 1 tablet (325 mg) by mouth every 8 (eight) hours 270 tablet 3 01/08/2024 Active Start: 12-31-2020 take 325 mg by mouth twice jones ly Ferrous Sulfate Active 325 MG PO Twice daily December 31, 2020 1:00am take 1 tablet by diogo th every eight hours ferrous sulfate 325 (65 Fe) MG tablet Take 325 mg by mouth every 8 (eight) hours. Active 12 hr fexofenadine hydrochloride 60 mg / pseudoephedrine hydrochloride 120 mg extended release oral tablet (19 sources) alpha-Adrenergic Agonist, Histamine-1 Receptor Antagonist Start: 12-31-2020 take 1 tablet by mouth every twelve hours, then take 1 tablet by mouth every twelve hours Fexofenadine-Pseudoephedrine (Ritika-D 12 Hour) 60-120 mg Tablet Extended Release 12 Hr Active 1 TAB PO Q12H December 31, 2020 1:00am take 1 tablet by diogo th once in the morning, then take 1 tablet by mouth every twelve hours in the evening fexofenadine-pseudoephedrine ER (Ritika -D) 60-120 MG 12 hr tablet Take 1 tablet by mouth in the morning and 1 tablet in the evening. Active fluticasone propionate 0.05 mg/actuat metered dose nasal spray (15 sources) Corticosteroid Start: 05-07-2023 take 1-2 spray(s) nasal route once daily fluticasone (Flonase) 50 MCG/ACT nasal spray Indications: Seasonal allergic rhinitis due to pollen Administer 1-2 sprays into each nostril Daily Shake gently. Before first use, prime pump. After use, clean tip and replace cap. 16 g 2 05/07/2023 Active ibuprofen 600 mg oral tablet (4 sources) Nonsteroidal Anti-inflammatory Drug Start: 03-15-2021 Ibuprofen Active 600 MG PO EVERY 4-6 HOURS 14 7 March 15, 2021 1:00am do not exceed 4 doses in a 24 hour period ammonium lactate 120 mg/ml topical cream (10 sources) Start: 01-09-2024 End: 01-08-2025 ammonium lactate (Amlactin) 12 % cream Indications: Corns and callosities Apply topically Daily 140 g 3 01/09/2024 01/08/2025 Active levothyroxine sodium 0.088 mg oral tablet (19 sources) l-Thyroxine Start: 05-31-2024 take 1 tablet by mouth in the morning levothyroxine (Synthroid, Levoxyl) 88 MCG tablet Indications: Acquired hypothyroidism (CMS/HCC) Take 1 tablet (88 mcg) by mouth in the morning. 90 tablet 05/31/2024 Active Start: 01-07-2024 levothyroxine (Synthroid, Levoxyl) 88 MCG tablet Indications: Acquired hypothyroidism (CMS/HCC) TAKE 1 TABLET EVERY MORNING 100 tablet 1 01/07/2024 Active Start: 12-28-2020 take 1 tablet by diogo th in the morning levothyroxine (Synthroid, Levoxyl) 88 MCG tablet Indications: Acquired hypothyroidism (CMS/HCC) Take 1 tablet (88 mcg) by mouth in the morning. 100 tablet 3 01/15/2023 Active magnesium oxide 500 mg oral tablet (4 sources) Start: 01-19-2021 take 500 mg by mouth twice daily Magnesium Oxide Active 500 MG PO Twice daily January 19, 2021 1:00am Multiple Vitamins-Minerals (Thera-M) tablet (15 sources) take 1 tablet by mouth in the morning Multiple Vitamins-Minerals (Thera-M) tablet Take 1 tablet by mouth in the morning. Active Multivitamin preparation (4 sources) Start: 12-31-2020 take 1 tablet by mouth once daily Multivitamin Active 1 TAB PO Daily December 31, 2020 3:58pm Start: 12-31-2020 take 1 tablet by diogo th once daily Multivitamin Active 1 TAB PO Daily December 31, 2020 1:00am omeprazole 40 mg delayed release oral capsule (19 sources) Proton Pump Inhibitor Start: 05-27-2024 omeprazole (PriLOSEC ) [address] capsule Indications: Gastroesophageal reflux disease with esophagitis, unspecified whether hemorrhage TAKE 1 CAPSULE EVERY DAY 60 capsule 05/27/2024 Active Start: 12-31-2020 omeprazole (Pr iLOSEC) [address] capsule Indications: Gastroesophageal reflux disease with esophagitis, unspecified whether hemorrhage TAKE 1 CAPSULE EVERY DAY 100 capsule 3 04/25/2023 Active 24 hr oxybutynin chloride 15 mg extended release oral tablet (19 sources) Cholinergic Muscarinic Antagonist Start: 05-31-2024 take 1 tablet by mouth every twenty-four hours in the morning oxybutynin XL (Ditropan-XL) 15 MG 24 hr tablet Indications: OAB (overactive bladder) Take 1 tablet (15 mg) by mouth in the morning. 90 tablet 05/31/2024 Active Start: 01-07-2024 oxybutynin XL (Ditropan-XL) 15 MG 24 hr tablet Indications: OAB (overactive bladder) TAKE 1 TABLET EVERY MORNING 100 tablet 1 01/07/2024 Active Start: 10-02-2022 take 1 tablet by diogo th every twenty-four hours in the morning oxybutynin XL (Ditropan-XL) 15 MG 24 hr tablet Indications: OAB (overactive bladder) Take 1 tablet (15 mg) by mouth in the morning. 100 tablet 3 10/02/2022 Active Start: 12-31-2020 take 15 mg by mouth once daily Oxybutynin Chloride Active 15 MG PO Daily December 31, 2020 1:00am pravastatin sodium 40 mg oral tablet (19 sources) HMG-CoA Reductase Inhibitor Start: 05-31-2024 take 1 tablet by mouth once daily pravastatin (Pravachol) 40 MG tablet Indications: Hypercholesterolemia (CMS/HCC) Take 1 tablet (40 mg) by mouth Daily 90 tablet 05/31/2024 Active Start: 01-07-2024 pravastatin (P ravachol) 40 MG tablet Indications: Hypercholesterolemia (CMS/HCC) TAKE 1 TABLET EVERY DAY 100 tablet 1 01/07/2024 Active Start: 12-28-2020 pravastatin (P ravachol) 40 MG tablet Indications: Hypercholesterolemia (CMS/HCC) TAKE 1 TABLET EVERY DAY 100 tablet 3 01/07/2023 Active sacubitril 49 mg / valsartan 51 mg oral tablet (19 sources) Angiotensin 2 Receptor Mervin Start: 12-31-2020 take 1 tablet by mouth once daily Sacubitril-Valsartan (Entresto) 49-51 mg Tablet Active 1 TAB PO Daily December 31, 2020 1:00am sacubitril-valsa rtan (Entresto) 49-51 MG tablet every 12 (twelve) hours Active Completed/Discontinued Medications Medication Drug Class(es) Dates Sig (Normalized) Sig (Original) Magnesium (19 sources) Start: 12-31-2020 End: 01-19-2021 take 15 mg by mouth once daily Magnesium Discontinued 15 MG PO Daily December 31, 2020 3:58pm January 19, 2021 5:30pm Start: 12-31-2020 End: 01-19-2021 take 15 mg by mouth once daily Magnesium Discontinued 15 MG PO Daily December 31, 2020 1:00am January 19, 2021 5:30pm magnesium 250 MG tablet every 12 (twelve) hours Active magnesium 250 MG tablet every 12 (twelve) hours. Active Problems Active Problems Problem Classification Problem Date Documented Date Episodic/Chronic Acquired foot deformities (20 sources) Acquired hammer toe of left foot; Translations: [Other hammer toe(s) (acquired), left foot] Onset: 3 09-04-2022 Chronic Acquired foot deformities (15 sources) Acquired hammer toe of right foot; Translations: [Other hammer toe(s) (acquired), right foot] Onset: 3 09-04-2022 Chronic Acquired foot deformities (4 sources) Contracture of joint of toe; Translations: [Other deformities of toe(s) (acquired), left foot] 12-12-2023 Episodic Cancer of breast (20 sources) Carcinoma of breast ; Translations: [Malignant neoplasm of unspecified site of unspecified female breast] Onset: 3 12-31-2020 Chronic Chronic ulcer of skin (2 sources) Non-pressure chronic ulcer of other part of left foot with fat layer exposed; Translations: [Ulcer of other part of foot] 12-12-2023 Chronic Coagulation and hemorrhagic disorders (15 sources) Thrombocytopenic disorder; Translations: [Thrombocytopenia, unspecified] Onset: 1 09-04-2022 Chronic Congestive heart failure; nonhypertensive (20 sources) Heart failure, unspecified; Translations: [Systolic heart failure stage B] Onset: 3 09-04-2022 Chronic Coronary atherosclerosis and other heart disease (20 sources) Coronary arteriosclerosis; Translations: [Atherosclerotic heart disease of [place] coronary artery without angina pectoris] Onset: 4 03-15-2021 Chronic Delirium, dementia, and amnestic and other cognitive disorders (15 sources) Vascular dementia ; Translations: [Vascular dementia without behavioral disturbance] Onset: 3 09-04-2022 Chronic Diabetes mellitus with complications (20 sources) Disorder of kidney due to diabetes mellitus; Translations: [Type 2 diabetes mellitus with diabetic nephropathy] Onset: 6 09-04-2022 Chronic Diabetes mellitus without complication (16 sources) Type 2 diabetes mellitus without complications; Translations: [Type 2 diabetes mellitus] Onset: 3 09-04-2022 Chronic Disorders of lipid metabolism (20 sources) Hypercholesterolemia; Translations: [Pure hypercholesterolemia, unspecified] Onset: 3 09-04-2022 Chronic Esophageal disorders (16 sources) Gastro-esophageal reflux disease without esophagitis; Translations: [Laryngopharyngeal reflux] Onset: 7 09-04-2022 Chronic Essential hypertension (15 sources) Benign essential hypertension; Translations: [Essential (primary) hypertension] Onset: 4 07-17-2023 Chronic Headache; including migraine (15 sources) Tension-type headache; Translations: [Tension-type headache, unspecified, not intractable] Onset: 7 09-04-2022 Chronic Heart valve disorders (15 sources) Mitral valve disorder; Translations: [Rheumatic mitral valve disease, unspecified] Onset: 3 09-04-2022 Chronic Hypertension with complications and secondary hypertension (20 sources) Hypertensive heart disease with heart failure; Translations: [Hypertension secondary to endocrine disorder] Onset: 5 09-04-2022 Chronic Late effects of cerebrovascular disease (15 sources) 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 accident; Translations: [Unspecified symptoms and signs involving cognitive functions following cerebral infarction] Onset: 0 09-04-2022 Chronic Malignant neoplasm without specification of site (15 sources) Malignant adenomatous neoplasm; Translations: [Malignant (primary) neoplasm, unspecified] Onset: 1 09-04-2022 Chronic Mood disorders (15 sources) Recurrent major depressive episodes, mild ; Translations: [Major depressive disorder, recurrent, mild] Onset: 3 09-04-2022 Chronic Mycoses (1 source) Onychomycosis; Translations: [Tinea unguium] 04-14-2024 Episodic Osteoarthritis (15 sources) Osteoarthritis of joint of right hand; Translations: [Primary osteoarthritis, right hand] Onset: 3 09-04-2022 Chronic Osteoporosis (15 sources) Osteoporosis; Translations: [Age-related osteoporosis without current pathological fracture] Onset: 6 09-04-2022 Chronic Other ear and sense organ disorders (18 sources) Asymmetrical sensorineural hearing loss; Translations: [Sensorineural hearing loss, bilateral] Onset: 0 09-04-2022 Chronic Other ear and sense organ disorders (15 sources) Conductive hearing loss, bilateral; Translations: [Conductive hearing loss, bilateral] Onset: 0 09-04-2022 Chronic Other ear and sense organ disorders (15 sources) Sensorineural hearing loss, unilateral, right ear, with unrestricted hearing on the contralateral side; Translations: [Sensorineural hearing loss, unilateral] Onset: 0 09-06-2022 Chronic Other ear and sense organ disorders (1 source) Impaired auditory discrimination; Translations: [Other abnormal auditory perceptions, right ear] 06-13-2024 Episodic Other hereditary and degenerative nervous system conditions (15 sources) Restless legs; Translations: [Restless legs syndrome] Onset: 7 09-04-2022 Chronic Other nervous system disorders (15 sources) Neuropathy; Translations: [Polyneuropathy, unspecified] Onset: 6 09-04-2022 Chronic Other nutritional; endocrine; and metabolic disorders (15 sources) Disorder of lipid metabolism; Translations: [Disorder of lipoprotein metabolism, unspecified] Onset: 4 09-04-2022 Chronic Other screening for suspected conditions (not mental disorders or infectious disease) (20 sources) Electrocardiogram abnormal; Translations: [Abnormal electrocardiogram [ECG] [EKG]] Onset: 4 03-28-2021 Episodic Other skin disorders (2 sources) Callosity; Translations: [Corns and callosities] 01-09-2024 Episodic Other skin disorders (1 source) Dystrophia unguium; Translations: [Nail dystrophy] 04-14-2024 Episodic Other upper respiratory disease (15 sources) Allergic rhinitis; Translations: [Allergic rhinitis, unspecified] Onset: 5 09-04-2022 Chronic Other upper respiratory disease (15 sources) Vocal cord paralysis; Translations: [Paralysis of vocal cords and larynx, unspecified] Onset: 7 09-04-2022 Chronic Other upper respiratory disease (15 sources) Allergic rhinitis due to pollen; Translations: [Allergic rhinitis due to pollen] Onset: 8 09-04-2022 Chronic Lea-; endo-; and myocarditis; cardiomyopathy (except that caused by tuberculosis or sexually transmitted disease) (17 sources) Cardiomyopathy associated with another disorder; Translations: [Cardiomyopathy, unspecified] Onset: 3 09-04-2022 Chronic Peripheral and visceral atherosclerosis (2 sources) Peripheral vascular disease; Translations: [Peripheral vascular disease, unspecified] 12-12-2023 Chronic Residual codes; unclassified (15 sources) Orthopedic hardware in situ; Translations: [Presence of functional implant, unspecified] Onset: 0 09-04-2022 Chronic Thyroid disorders (16 sources) Hypothyroidism, unspecified; Translations: [Acquired hypothyroidism] Onset: 5 09-04-2022 Chronic Viral infection (4 sources) COVID-19; Translations: [COVID-19] Onset: 1 Past or Other Problems Problem Classification Problem Date Documented Date Episodic/Chronic Abdominal hernia (15 sources) Hiatal hernia; Translations: [Diaphragmatic hernia without obstruction or gangrene] Onset: 06-28-2015 09-04-2022 Episodic Anxiety disorders (15 sources) Anger reaction; Translations: [Irritability and anger] Onset: 08-09-2017 09-04-2022 Episodic Biliary tract disease (15 sources) Cholelithiasis without obstruction; Translations: [Calculus of gallbladder without cholecystitis without obstruction] Onset: 09-04-2022 09-04-2022 Episodic Cancer of breast (20 sources) Personal history of malignant neoplasm of breast; Translations: [History of malignant neoplasm of breast] Onset: 10-21-2021 Episodic Coronary atherosclerosis and other heart disease (3 [...] HX URINARY TRACT INFECTIONS] Onset: 11-22-2020 Episodic Headache; including migraine (15 sources) Headache; Translations: [Headache] Onset: 09-02-2015 09-04-2022 Episodic Malaise and fatigue (1 source) Weakness; Translations: [WEAKNESS] Onset: 11-22-2020 Episodic Nausea and vomiting (1 source) Nausea; Translations: [NAUSEA] Onset: 11-22-2020 Episodic Other aftercare (1 source) moth exterminator (current) use of aspirin; Translations: [AUDIO/VISUAL MANAGER CURRENT USE OF ASPIRIN] Onset: 11-22-2020 Episodic Other aftercare (1 source) Other correction (current) drug therapy; Translations: [OTH SENIOR LIVING CURRENT DRUG THERAPY] Onset: 11-22-2020 Episodic Other aftercare (15 sources) Long-term current use of anticoagulant; Translations: [moth exterminator (current) use of anticoagulants] Onset: 04-11-2018 09-04-2022 Episodic Other circulatory disease (1 source) Personal history of transient ischemic attack (TIA), and cerebral infarction without residual deficits; Translations: [PERS HX TIA AND CI NO RESID DEFICIT] Onset: 11-22-2020 Episodic Other circulatory disease (15 sources) History of cerebrovascular accident without residual deficits; Translations: [Personal history of transient ischemic attack (TIA), and cerebral infarction without residual deficits] Onset: 01-01-2015 09-04-2022 Episodic Other infections; including parasitic (15 sources) Personal history of other infectious and parasitic diseases; Translations: [History of COVID-19] Onset: 09-04-2022 09-04-2022 Episodic Other injuries and conditions due to external causes (1 source) Other specified injuries of right shoulder and upper arm, initial encounter; Translations: [OTH SPEC INJ RT SHOULDR UP ARM INIT] Onset: 11-22-2020 Episodic Other liver diseases (4 sources) Abnormal levels of other serum enzymes; Translations: [ABNORMAL LEVELS OTHER SERUM ENZYMES] Onset: 04-18-2021 Episodic Other liver diseases (15 sources) Elevated liver enzymes level; Translations: [Abnormal levels of other serum enzymes] Onset: 09-04-2022 09-04-2022 Episodic Other lower respiratory disease (1 source) Shortness of breath; Translations: [SHORTNESS OF BREATH] Onset: 11-22-2020 Episodic Other nervous system disorders (15 sources) Loss of taste; Translations: [Parageusia] Onset: 11-18-2020 09-04-2022 Episodic Other nervous system disorders (15 sources) Paresthesia of lower extremity; Translations: [Anesthesia of skin] Onset: 05-07-2023 05-07-2023 Episodic Other non-traumatic joint disorders (3 sources) Pain in right shoulder; Translations: [PAIN IN RIGHT SHOULDER] Onset: 11-18-2020 Episodic Residual codes; unclassified (15 sources) Edema; Translations: [Edema, unspecified] Onset: 01-19-2015 09-04-2022 Episodic Spondylosis; intervertebral disc disorders; other back problems (15 sources) Spinal stenosis of lumbar region; Translations: [Spinal stenosis, lumbar region with neurogenic claudication] Onset: 05-07-2023 05-07-2023 Episodic Sprains and strains (1 source) Strain of unspecified muscle, fascia and tendon at shoulder and upper arm level, right arm, initial encounter; Translations: [STRN UNS MSC F TND SHLDR UA RA INIT] Onset: 11-22-2020 Episodic Superficial injury; contusion (1 source) Contusion of right shoulder, initial encounter; Translations: [CONTUSION RIGHT SHOULDER INITIAL] Onset: 11-22-2020 Episodic Viral infection (15 sources) COVID-19; Translations: [Other specified viral infection] Onset: 11-23-2020 09-04-2022 Episodic Results Test Name Value Interpretation Reference Range Facility Office Visiton 06-25-2024 Follow-up visit [id number] Isabella Horne 1950 F Date Provider Department Center 06/25/2024 271-GERMANIA HELTON [facility] Family History Problem Relation Age of Onset Coronary artery disease Brother Family Status - Relation Status Age at Mother Father Sister Brother Alive Level of Service:[id number] ID OFFICE/OUTPATIENT ESTABLISHED MOD MDM 30 MIN Normal [facility] Auditory function testson Right Ear: Mild slop ing to profound sensorineural hearing loss Left Ear: Mild sloping to profound sensorineural hearing loss above 500 Hz [facility] ECHO DOPPLER COMPLETEon 0 05-15-2024 [facility] [address] [place] [address] Cardiology Report Signed Patient: ISABELLA HORNE MR#: [id number] : 1950 Acct:[id number] Age/Sex: 74 / F ADM Date: 05/15/24 Loc: CARD Attending Dr: Germania Helton M.D. Ordering Physician: Germania Helton M.D. Date of Service: 05/15/24 Procedure(s): CA echo doppler complete Accession Number(s): [id number] cc: HONG SCHILLING ; Germania Helton M.D. ECHOCARDIOGRAM REPORT PROCEDURE: CA ECHO DOPPLER COMPLETE INDICATIONS: Chronic heart failure, CABGx4, SD, stroke, hypertension, diabetes COMPARISON: None. DESCRIPTION: COMPLETE ECHOCARDIOGRAM Real-time transthoracic echocardiography with 2D, M-mode, spectral and color flow Doppler performed. QUALITY: Technical quality was good. LEFT VENTRICLE: Normal chamber size. Mild Proximal septal hypertrophy (sigmoid septum). The distal portion of the heart tillman in addition to mid anterior and mid septal segments are akinetic. LV EF: Severely reduced left ventricular systolic function, ejection fraction 30% DIASTOLIC: Grade I diastolic dysfunction. ATRIAL SEPTUM: Appears intact LEFT ATRIUM: Normal chamber size. RIGHT ATRIUM: Normal chamber size. RIGHT VENTRICLE: Normal chamber size. Decreased right ventricular systolic function. TRICUSPID VALVE: Normal mobility and thickness. No stenosis with trivial regurgitation. Cannot calculate RVSP due to lack of adequate tricuspid regurgitation signal MITRAL VALVE: Normal mobility and thickness. No evidence of mitral valve stenosis. There is no mitral annular calcification. Trivial to mild mitral regurgitation. AORTIC VALVE: Normal trileaflet appearance. No visible sclerosis. Normal leaflet mobility. No evidence of aortic valve stenosis. Trivial aortic regurgitation. AORTIC ROOT: Normal diameter and appearance. PULMONIC VALVE: Normal thickness and mobility. No stenosis. No regurgitation. PERICARDIUM: No evidence of pericardial effusion. IVC: Not well visualized. PLEURA: CONCLUSION: Severely reduced left ventricular systolic function with akinetic distal segments of all cardiac tillman in addition to the mid segment of anterior and septal tillman, ejection fraction 30% Grade 1 diastolic dysfunction Normal right ventricle size but reduced systolic function Trivial aortic regurgitation Trivial to mild mitral regurgitation Adult Echocardiography Procedure Report Left Ventricle LVEDD (3.7 - 5.6 cm): 4.36 cm LVESD (2.2 - 4.0 cm): 3.68 cm LVIVS thickness (0.6 - 1.2 cm): 1.21 cm LVPW thickness (0.5 - 1.0 cm): 1.00 cm e': 0.09 m/s E - e': 6.86 LVOT Max Gradient: 1.56 mm[Hg] LVOT Area (cm2): 0.63 m/s Peak Velocity (LVOT): 0.63 m/s Mean Velocity (LVOT): 0.47 m/s LVOT Diameter 2.04 cm Left Ventricular Ejection Fraction: Left Atrium LA Volume Index (2D A2C): 27.45 ml/m2 Left Atrium Systolic Dimension: 4.53 cm Mitral Valve MV E to A Ratio: 0.77 MV Max Gradient: MV Mean Gradient: Mitral Valve A-Wave Peak Velocity: 0.79 m/s Mitral Valve E-Wave Peak Velocity: 0.62 m/s Cardiovascular Orifice Area: Right Ventricle RV Internal Diastolic Dimension: Aorta AO Root Diam: 3.09 cm Ascending Ao Diam: Aortic Valve AoV Area (Peak Kiran): 1.43 cm2, 1.43 cm2 AoV Area (VTI): 1.46 cm2, 1.46 cm2 Deceleration Cottonwood: Pressure Half-Time: Peak Velocity(Antegrade Flow): 1.42 m/s Peak Gradient(Antegrade Flow): 8.08 mm[Hg] Mean Velocity(Antegrade Flow): 1.06 m/s Mean Gradient(Antegrade Flow): 5.06 mm[Hg] Velocity Time Integral: 35.57 cm Tricuspid Valve Peak Velocity (Regurgitant Flow): Peak Velocity: Pulmonic Valve Mean Gradient: 1.76 mm[Hg] Mean Velocity: 0.63 m/s Peak Velocity: 0.85 m/s, 0.77 m/s Peak Gradient: 2.36 mm[Hg], 2.92 mm[Hg] Right Atrium Right Atrium Systolic Pressure: 26.07 ml, 26.07 ml Dictated by: Josselyn Galeano MD on 05/15/2024 a (more content not included)... [facility] Radiology, Radiologyola velez MD - 05/15/2024 [place] [address] Cardiology Report Signed Patient: ISABELLA HORNE MR#: [id number] : 1950 Acct:[id number] Age/Sex: 74 / F ADM Date: 05/15/24 Loc: CARD Attending Dr: Germania Helton M.D. Ordering Physician: Germania Helton M.D. Date of Service: 05/15/24 Procedure(s): CA echo doppler complete Accession Number(s): [id number] cc: HONG SCHILLING ; Germania Helton M.D. ECHOCARDIOGRAM REPORT PROCEDURE: CA ECHO DOPPLER COMPLETE INDICATIONS: Chronic heart failure, CABGx4, SD, stroke, hypertension, diabetes COMPARISON: None. DESCRIPTION: COMPLETE ECHOCARDIOGRAM Real-time transthoracic echocardiography with 2D, M-mode, spectral and color flow Doppler performed. QUALITY: Technical quality was good. LEFT VENTRICLE: Normal chamber size. Mild Proximal septal hypertrophy (sigmoid septum). The distal portion of the heart tillman in addition to mid anterior and mid septal segments are akinetic. LV EF: Severely reduced left ventricular systolic function, ejection fraction 30% DIASTOLIC: Grade I diastolic dysfunction. ATRIAL SEPTUM: Appears intact LEFT ATRIUM: Normal chamber size. RIGHT ATRIUM: Normal chamber size. RIGHT VENTRICLE: Normal chamber size. Decreased right ventricular systolic function. TRICUSPID VALVE: Normal mobility and thickness. No stenosis with trivial regurgitation. Cannot calculate RVSP due to lack of adequate tricuspid regurgitation signal MITRAL VALVE: Normal mobility and thickness. No evidence of mitral valve stenosis. There is no mitral annular calcification. Trivial to mild mitral regurgitation. AORTIC VALVE: Normal trileaflet appearance. No visible sclerosis. Normal leaflet mobility. No evidence of aortic valve stenosis. Trivial aortic regurgitation. AORTIC ROOT: Normal diameter and appearance. PULMONIC VALVE: Normal thickness and mobility. No stenosis. No regurgitation. PERICARDIUM: No evidence of pericardial effusion. IVC: Not well visualized. PLEURA: CONCLUSION: Severely reduced left ventricular systolic function with akinetic distal segments of all cardiac tillman in addition to the mid segment of anterior and septal tillman, ejection fraction 30% Grade 1 diastolic dysfunction Normal right ventricle size but reduced systolic function Trivial aortic regurgitation Trivial to mild mitral regurgitation Adult Echocardiography Procedure Report Left Ventricle LVEDD (3.7 - 5.6 cm): 4.36 cm LVESD (2.2 - 4.0 cm): 3.68 cm LVIVS thickness (0.6 - 1.2 cm): 1.21 cm LVPW thickness (0.5 - 1.0 cm): 1.00 cm e': 0.09 m/s E - e': 6.86 LVOT Max Gradient: 1.56 mm[Hg] LVOT Area (cm2): 0.63 m/s Peak Velocity (LVOT): 0.63 m/s Mean Velocity (LVOT): 0.47 m/s LVOT Diameter 2.04 cm Left Ventricular Ejection Fraction: Left Atrium LA Volume Index (2D A2C): 27.45 ml/m2 Left Atrium Systolic Dimension: 4.53 cm Mitral Valve MV E to A Ratio: 0.77 MV Max Gradient: MV Mean Gradient: Mitral Valve A-Wave Peak Velocity: 0.79 m/s Mitral Valve E-Wave Peak Velocity: 0.62 m/s Cardiovascular Orifice Area: Right Ventricle RV Internal Diastolic Dimension: Aorta AO Root Diam: 3.09 cm Ascending Ao Diam: Aortic Valve AoV Area (Peak Kiran): 1.43 cm2, 1.43 cm2 AoV Area (VTI): 1.46 cm2, 1.46 cm2 Deceleration Cottonwood: Pressure Half-Time: Peak Velocity(Antegrade Flow): 1.42 m/s Peak Gradient(Antegrade Flow): 8.08 mm[Hg] Mean Velocity(Antegrade Flow): 1.06 m/s Mean Gradient(Antegrade Flow): 5.06 mm[Hg] Velocity Time Integral: 35.57 cm Tricuspid Valve Peak Velocity (Regurgitant Flow): Peak Velocity: Pulmonic Valve Mean Gradient: 1.76 mm[Hg] Mean Velocity: 0.63 m/s Peak Velocity: 0.85 m/s, 0.77 m/s Peak Gradient: 2.36 mm[Hg], 2.92 mm[Hg] Right Atrium Right Atrium Systolic Pressure: 26.07 ml, 26.07 ml Dictated by: Josselyn Galeano MD on 05/15/2024 at 19:03 Approved by: Josselyn Galeano MD on 05/15/2024 at 19:14 Continued Report - Page [place] [id number] Dictated By: Josselyn Galeano M.D. Signed By: 05/15/241914 DD/ 13 TD/TT: Sales Professional Bilingual: [facility] Radiology Study observation (narrative) [facility] CA ECHO DOPPLER COMPLETEOrde red By: Radiologist Radiology on 05-15-2024 [facility] Eyelation Work Phone: MM diagnostic mammo BI w/CAD on 11-26-2023 MM diagnostic mammo BI w/CAD [facility] [address] Mammography Report Signed Patient: Isabella Horne MR#: [id number] : 1950 Acct:[id number] Age/Sex: 73 / F ADM Date: 11/26/23 Loc: [place] Room: Type: [facility] Attending Dr: Bill Trammell DO Copies to: DO Hong Pollock MD Ordering Provider: Bill Trammell DO Date of Service: 11/26/23 MM/MM diagnostic mammo BI w/CAD: Yrly mamms CLINICAL DATA: Prior right breast cancer. BILATERAL DIAGNOSTIC MAMMOGRAMS - FULL FIELD DIGITAL WITH TOMOSYNTHESIS AND CAD Tomosynthesis craniocaudal and mediolateral oblique views of both breasts were obtained using low- dose digital technique. Comparison is made to prior studies from November 13, 2017 through November 21, 2022. This examination was reviewed with the aid of CAD. There are scattered fibroglandular densities. There is postoperative scarring and BioZorb at the central right breast posteriorly. There are some benign and vascular calcifications. There are no developing masses, typically malignant [...] next mammogram. Impression dictated by: Vanessa [place] M.D.11/26/2023 1:01 PM Dictation Location: [facility] Transcribed By: [facility] 11/26/23 1301 Dictated By: Vanessa [place] MD 11/26/23 1052 Signed By: 11/26/23 1301 Normal [facility] MG MAMM MICHELE DIAG W CADon MG MAMM MICHELE DIAG W CAD Patient: ISABELLA HORNE Exam Date: 10/21/2021 : 1950 Gender:F Ordering : DR BILL TRAMMELL D.O. Admission #: [id number] Family : Order #: [id number] CLICK HERE TO VIEW EXAM RADIOLOGY REPORT PROCEDURE: MAMMOGRAM BILATERAL DIAGNOSTIC DIGITAL WITH COMPUTER AIDED DETECTION COMPARISON: MAMMO POST BIOPSY RIGHT, 11/09/2020. MG MAMM SCREEN 3D MICHELE CAD, 10/11/2020. INDICATIONS: Personal history of malignant neoplasm of breast Calculator Name NCI Breast Cancer Risk Assessment Tool 5 Year Breast Cancer Risk 2.00% Lifetime Breast Cancer Risk 5.30% Personal Breast Cancer No Personal Ovarian Cancer No Treatments None Family Cancers None LOCATION: The [facility] BREAST COMPOSITION: Heterogeneously dense,which may obscure [...] PALPABLE LUMP SHOULD BE BIOPSIED. Dictated by: Edwin Astudillo M.D. on 10/21/2021 at 14:35 Approved by: Edwin Astudillo M.D. on 10/21/2021 at 15:23 Normal [facility] LIVER PROFILEon 07-13-2021 Albumin [Mass/Vol] 3.5 g/dL Normal 3.4-5.0 [facility] Comment on above: Performed By: #### L IVER ####[facility] [address] [place], [place] [address]Dr. Krystal Lewis Albumin/Globulin [Mass ratio] 0.9 {ratio} Normal [facility] Comment on above: Performed By: #### L IVER ####[facility] [address] [place], [place] [address]Dr. Krystal Lewis ALP [Catalytic activity/Vol] 92 U/L Normal 46-116 [facility] Comment on above: Performed By: #### L IVER ####[facility] [address] [place], [place] [address]Dr. Krystal Lewis ALT [Catalytic activity/Vol] 23 U/L Normal 14-59 [facility] Comment on above: Performed By: #### L IVER ####[facility] [address] [place], [place] [address]Dr. Krystal Lewis AST [Catalytic activity/Vol] 18 U/L Normal 15-37 [facility] Comment on above: Performed By: #### L IVER ####[facility] [address] [place], [place] [address]Dr. Krystal Lewis BILI, CONJUGATED 0.1 mg/dL Normal 0.0-0.2 [facility] Comment on above: Performed By: #### L IVER ####[facility] [address] [place], [place] [address]Dr. Krystal Lewis Bilirubin [Mass/Vol] 0.7 mg/dL Normal 0.2-1.0 [facility] Comment on above: Performed By: #### L IVER ####[facility] [address] [place], [place] [address]Ez. Krystal Lewis Globulin (S) [Mass/Vol] 3.7 g/dL Normal [facility] Comment on above: Performed By: #### L IVER ####[facility] [address] [place], [place] [address]Rw. Krystal Lewis Protein [Mass/Vol] 7.2 g/dL Normal 6.4-8.2 [facility] Comment on above: Performed By: #### L IVER ####[facility] [address] [place], [place] [address]Rr. Krystal Lewis US SINGLE QUAD RT UPPERon [...] JHONNY CAREY Date: 2021-04-18 10:16 Normal [facility] Complete Blood Count with Au to Diffon 04-05-2021 Basophils (Bld) [#/Vol] 0.03 10*3/uL Normal 0.00-0.20 [facility] Comment on above: Performed By: #### T SH reflex FT4, LIPD, CMP, CBCAD #### [facility] [address] [place], [place] [id number] Basophils/100 WBC (Bld) 0.5 % Normal [facility] Comment on above: Performed By: #### T SH reflex FT4, LIPD, CMP, CBCAD #### [facility] [address] [place], [place] [id number] Eosinophils (Bld) [#/Vol] 0.26 10*3/uL Normal 0.02-0.50 [facility] Comment on above: Performed By: #### T SH reflex FT4, LIPD, CMP, CBCAD #### [facility] [address] [place], [place] [id number] Eosinophils/100 WBC (Bld) 4.1 % Normal [facility] Comment on above: Performed By: #### T SH reflex FT4, LIPD, CMP, CBCAD #### [facility] [address] [place], [place] [id number] Erythrocyte distribution width (RBC) [Ratio] 13.2 % Normal 11.0-15.0 [facility] Comment on above: Performed By: #### T SH reflex FT4, LIPD, CMP, CBCAD #### [facility] [address] [place], [place] [id number] Hematocrit (Bld) [Volume fraction] 46.2 % Normal 35.0-47.0 [facility] Comment on above: Performed By: #### T SH reflex FT4, LIPD, CMP, CBCAD #### [facility] [address] [place], [place] [id number] Hemoglobin (Bld) [Mass/Vol] 14.4 g/dL Normal 11.6-15.5 [facility] Comment on above: Performed By: #### T SH reflex FT4, LIPD, CMP, CBCAD #### [facility] [address] [place], [place] [id number] Lymphocytes (Bld) [#/Vol] 1.1 10*3/uL Normal 0.9-3.9 [facility] Comment on above: Performed By: #### T SH reflex FT4, LIPD, CMP, CBCAD #### [facility] [address] [place], [place] [id number] Lymphocytes/100 WBC (Bld) 17.5 % Normal [facility] Comment on above: Performed By: #### T SH reflex FT4, LIPD, CMP, CBCAD #### [facility] [address] [place], [place] [id number] MCH (RBC) [Entitic mass] 30.3 pg Normal 27.0-33.0 [facility] Comment on above: Performed By: #### T SH reflex FT4, LIPD, CMP, CBCAD #### [facility] [address] [place], [place] [id number] MCHC (RBC) [Mass/Vol] 31.2 g/dL Low 32.0-36.0 [facility] Comment on above: Performed By: #### T SH reflex FT4, LIPD, CMP, CBCAD #### [facility] [address] [place], [place] [id number] MCV (RBC) [Entitic vol] 97 fL Normal 80-100 [facility] Comment on above: Performed By: #### T SH reflex FT4, LIPD, CMP, CBCAD #### [facility] [address] [place], [place] [id number] Monocytes (Bld) [#/Vol] 0.7 10*3/uL Normal 0.2-0.9 [facility] Comment on above: Performed By: #### T SH reflex FT4, LIPD, CMP, CBCAD #### [facility] [address] [place], [place] [id number] Monocytes/100 WBC (Bld) 11.8 % Normal [facility] Comment on above: Performed By: #### T SH reflex FT4, LIPD, CMP, CBCAD #### [facility] [address] [place], [place] [id number] Neutrophils (Bld) [#/Vol] 4.1 10*3/uL Normal 1.5-7.8 [facility] Comment on above: Performed By: #### T SH reflex FT4, LIPD, CMP, CBCAD #### [facility] [address] [place], [place] [id number] Neutrophils/100 WBC (Bld) 65.6 % Normal [facility] Comment on above: Performed By: #### T SH reflex FT4, LIPD, CMP, CBCAD #### [facility] [address] [place], [place] [id number] Platelet mean volume (Bld) [Entitic vol] 10.90 fL Normal 7.50-12.50 [facility] [place] [facility] Specialist Comment on above: Performed By: #### T SH reflex FT4, LIPD, CMP, CBCAD #### [facility] [address] [place], [place] [id number] Platelets (Bld) [#/Vol] 212 10*3/uL Normal 140-400 [facility] Comment on above: Performed By: #### T SH reflex FT4, LIPD, CMP, CBCAD #### [facility] [address] [place], [place] [id number] RBC (Bld) [#/Vol] 4.75 10*6/uL Normal 3.90-5.20 [facility] Specialist Comment on above: Performed By: #### T SH reflex FT4, LIPD, CMP, CBCAD #### [facility] [address] [place], [place] [id number] RDW-SD 47.4 fL Normal 37.0-50.0 [facility] Comment on above: Performed By: #### T SH reflex FT4, LIPD, CMP, CBCAD #### [facility] [address] [place], [place] [id number] WBC (Bld) [#/Vol] 6.3 10*3/uL Normal 3.8-11.0 [facility] Comment on above: Performed By: #### T SH reflex FT4, LIPD, CMP, CBCAD #### [facility] [address] [place], [place] [id number] Comprehensive Metabolic [facility] 04-05-2021 Albumin [Mass/Vol] 4.1 g/dL Normal 3.6-5.1 [facility] Comment on above: Performed By: #### T SH reflex FT4, LIPD, CMP, CBCAD #### [facility] [address] [place], [place] [id number] Albumin/Globulin [Mass ratio] 1.5 {ratio} Normal 1.0-2.5 [facility] Comment on above: Performed By: #### T SH reflex FT4, LIPD, CMP, CBCAD #### [facility] [address] [place], [place] [id number] ALP [Catalytic activity/Vol] 125 U/L High 35-119 [facility] Comment on above: Performed By: #### T SH reflex FT4, LIPD, CMP, CBCAD #### [facility] [address] [place], [place] [id number] ALT [Catalytic activity/Vol] 43 U/L High 6-33 [facility] Comment on above: Result Comment: 01/12 Female reference range changed. Performed By: #### T SH reflex FT4, LIPD, CMP, CBCAD #### [facility] [address] [facility] [id number] Anion gap [Moles/Vol] 20 mmol/L Normal 12-20 [facility] Specialist Comment on above: Result Comment: Effe ctive 02/17/2019 reference range changed. Performed By: #### T SH reflex FT4, LIPD, CMP, CBCAD #### [facility] [address] [place] [id number] AST [Catalytic activity/Vol] 42 U/L High 9-34 [facility] Comment on above: Result Comment: Spec imen is hemolyzed. Results may be affected. Performed By: #### T SH reflex FT4, LIPD, CMP, CBCAD #### [facility] [address] [place] [id number] Bilirubin [Mass/Vol] 0.41 mg/dL Normal 0.30-1.20 [facility] Specialist Comment on above: Performed By: #### T SH reflex FT4, LIPD, CMP, CBCAD #### [facility] [address] [place] [id number] BUN/CREA 25 Ratio High 6-22 [facility] Comment on above: Performed By: #### T SH reflex FT4, LIPD, CMP, CBCAD #### [facility] [address] [place] [id number] Calcium [Mass/Vol] 10.3 mg/dL High 8.6-10.2 [place] [facility] Comment on above: Performed By: #### T SH reflex FT4, LIPD, CMP, CBCAD #### [facility] [address] [place], [place] [id number] Chloride [Moles/Vol] 105 mmol/L Normal 98-107 [facility] Comment on above: Performed By: #### T SH reflex FT4, LIPD, CMP, CBCAD #### [facility] [address] [place], [place] [id number] CO2 [Moles/Vol] 24 mmol/L Normal 20-[address] [facility] Comment on above: Performed By: #### T SH reflex FT4, LIPD, CMP, CBCAD #### [facility] [address] [place], [place] [id number] Creatinine [Mass/Vol] 1.2 mg/dL Normal 0.6-1.4 [facility] Specialist Comment on above: Performed By: #### T SH reflex FT4, LIPD, CMP, CBCAD #### [facility] [address] [place], [place] [id number] eGFRAA 55 mL/min/1.73m2 Low >60 [facility] Comment on above: Performed By: #### T SH reflex FT4, LIPD, CMP, CBCAD #### [facility] [address] [place], [place] [id number] eGFRNAA 45 mL/min/1.73m2 Low >60 [facility] Comment on above: Performed By: #### T SH reflex FT4, LIPD, CMP, CBCAD #### [facility] [address] [place], [place] [id number] Globulin (S) [Mass/Vol] 2.8 g/dL Normal 1.9-3.7 [facility] Comment on above: Performed By: #### T SH reflex FT4, LIPD, CMP, CBCAD #### [facility] [address] [place], [place] [id number] Glucose [Mass/Vol] 118 mg/dL High 65-99 [facility] [place] [facility] [employer] Comment on above: Result Comment: For FASTING Glucose --- ADA reference ranges: Normal 65-99 mg/dl Prediabetes 100-125 Diabetes >/= 126 Performed By: #### T SH reflex FT4, LIPD, CMP, CBCAD #### [facility] [address] [place], [place] [id number] Potassium [Moles/Vol] 5.5 mmol/L Normal 3.5-5.5 [facility] Comment on above: Result Comment: Spec imen is hemolyzed. Results may be affected. Performed By: #### T SH reflex FT4, LIPD, CMP, CBCAD #### [facility] [address] [place], [place] [id number] Protein [Mass/Vol] 6.9 g/dL Normal 6.1-8.1 [facility] Comment on above: Performed By: #### T SH reflex FT4, LIPD, CMP, CBCAD #### [facility] [address] [place], [place] [id number] Sodium [Moles/Vol] 143 mmol/L Normal 135-146 [facility] Comment on above: Performed By: #### T SH reflex FT4, LIPD, CMP, CBCAD #### [facility] [address] [place], [place] [id number] Urea nitrogen [Mass/Vol] 29 mg/dL High 7-25 [facility] Comment on above: Performed By: #### T SH reflex FT4, LIPD, CMP, CBCAD #### [facility] [address] [place], [place] [id number] Lipid Panelon 04-05-2021 Cholesterol [Mass/Vol] 155 mg/dL Normal 125-200 [facility] Comment on above: Result Comment: Low risk < 200mg/dL Borderline risk 201-239 mg/dl High risk > or equal to 240 Performed By: #### T SH reflex FT4, LIPD, CMP, CBCAD #### [facility] [address] [place], [place] [id number] Cholesterol in HDL [Mass/Vol] 52 mg/dL Normal >40 [facility] Comment on above: Result Comment: High Cardiovascular Risk HDL <40 mg/dL Low Cardiovascular Risk HDL > or equal to 60 mg/dl Performed By: #### T SH reflex FT4, LIPD, CMP, CBCAD #### [facility] [address] [place], [place] [id number] Cholesterol in LDL [Mass/Vol] 80 mg/dL Normal [facility] Comment on above: Result Comment: LDL ATP III CLASSIFICATION LDL less than 100 mg/dl Optimal LDL 100-129 mg/dl Near or above optimal LDL 130-159 Borderline high LDL 160-189 High LDL greater than 189 mg/dl Very High Performed By: #### T SH reflex FT4, LIPD, CMP, CBCAD #### [facility] [address] [place], [place] [id number] Cholesterol in VLDL [Mass/Vol] 23 mg/dL Normal [facility] Comment on above: Performed By: #### T SH reflex FT4, LIPD, CMP, CBCAD #### [facility] [address] [place], [place] [id number] Cholesterol.total/Cho lesterol in HDL [Mass ratio] 3 {ratio} Normal [facility] Comment on above: Performed By: #### T SH reflex FT4, LIPD, CMP, CBCAD #### [facility] [address] [place], [place] [id number] Triglyceride [Mass/Vol] 114 mg/dL Normal 30-150 [facility] Comment on above: Result Comment: TRIG ATPIII CLASSIFICATIONS TRIG less than 150 mg/dl Normal TRIG 150-199 mg/dl Borderline High TRIG 200-500 mg/dl High TRIG greather than 500 mg/dl Very High Performed By: #### T SH reflex FT4, LIPD, CMP, CBCAD #### [facility] [address] [place], [place] [id number] TSH w/ Reflex to Free T4on 0 04-05-2021 TSH 2.830 uIU/mL Normal 0.400-4.500 [facility] Specialist Comment on above: Performed By: #### T SH reflex FT4, LIPD, CMP, CBCAD #### [facility] [address] [place], [place] [id number] Basophils Auto (Bld) [#/Vol] Ordered By: Tru Urbina on 03-15-2021 Basophils (Bld) [#/Vol] 0.0 10*3/uL 0.0-0.2 [facility] Basophils/100 WBC Auto (Bld) Ordered By: Tru Urbina on 03-15-2021 Basophils/100 WBC (Bld) 0.2 % [facility] Blood hemoglobin measurement (mass/volume)Ordered By: Tru Urbina on 03-15-2021 Hemoglobin (Bld) [Mass/Vol] 14.2 g/dL 11.8-15.4 [facility] Blood leukocytes automated c ount (number/volume)Ordered By: Tru Urbina on 03-15-2021 WBC (Bld) [#/Vol] 8.8 10*3/uL 4.5-11.0 [facility] Eosinophils Auto (Bld) [#/Vo l]Ordered By: Tru Urbina on 03-15-2021 Eosinophils (Bld) [#/Vol] 0.1 10*3/uL 0.0-0.45 [facility] Eosinophils/100 WBC Auto (Bl d)Ordered By: Tru Urbina on 03-15-2021 Eosinophils/100 WBC (Bld) 0.8 % [facility] Erythrocyte distribution wid th Auto (RBC) [Ratio]Ordered By: Tru Urbina on 03-15-2021 Erythrocyte distribution width (RBC) [Ratio] 13.3 % 11.9-15.3 [facility] Glucose Glucometer (BldC) [M ass/Vol]Ordered By: Bill Trammell on 03-15-2021 Glucose [Mass/Vol] 115 mg/dL [facility] Comment on above: Random Glucose Refer ence Range is dependent on time and content of last meal. Glucose of more than 200 mg/dL in a nonstressed, ambulatory subject supports the diagnosis of Diabetes Mellitus. Hematocrit Auto (Bld) [Volum e fraction]Ordered By: Tru Urbina on 03-15-2021 Hematocrit (Bld) [Volume fraction] 42.6 % 34.0-46.4 [facility] Laboratory - Hematology and Cell countsOrdered By: Tru Urbina on 03-15-2021 Nucleated RBC/100 WBC (Bld) [Ratio] 0.1 % 0-0.5 [facility] Lymphocytes Auto (Bld) [#/Vo l]Ordered By: Tru Urbina on 03-15-2021 Lymphocytes (Bld) [#/Vol] 0.9 10*3/uL 1.00-4.8 [facility] Lymphocytes/100 WBC Auto (Bl d)Ordered By: Tru Urbina on 03-15-2021 Lymphocytes/100 WBC (Bld) 10.4 % [facility] MCH Auto (RBC) [Entitic mass ]Ordered By: Tru Urbina on 03-15-2021 MCH (RBC) [Entitic mass] 31.0 pg 24.7-34.3 [facility] MCHC Auto (RBC) [Mass/Vol]Or dered By: Tru Urbina on 03-15-2021 MCHC (RBC) [Mass/Vol] 33.2 g/dL 32.0-35.0 [facility] MCV Auto (RBC) [Entitic vol] Ordered By: Tru Urbina on 03-15-2021 MCV (RBC) [Entitic vol] 93.4 fL 80-100 [facility] Monocytes Auto (Bld) [#/Vol] Ordered By: Tru Urbina on 03-15-2021 Monocytes (Bld) [#/Vol] 1.1 10*3/uL 0.0-0.8 [facility] Monocytes/100 WBC Auto (Bld) Ordered By: Tru Urbina on 03-15-2021 Monocytes/100 WBC (Bld) 12.4 % [facility] Neutrophils Auto (Bld) [#/Vo l]Ordered By: Tru Urbina on 03-15-2021 Neutrophils (Bld) [#/Vol] 6.7 10*3/uL 1.8-7.7 [facility] Neutrophils/100 WBC Auto (Bl d)Ordered By: Tru Urbina on 03-15-2021 Neutrophils/100 WBC (Bld) 76.2 % [facility] No Panel InformationOrdered By: Bill Trammell on 03-15-2021 Bedside Glucose Comment Glu2: cleaned meter [facility] Platelet mean volume Auto (B ld) [Entitic vol]Ordered By: Tru Urbina on 03-15-2021 Platelet mean volume (Bld) [Entitic vol] 8.6 fL 6.3-10.7 [facility] Platelets Auto (Bld) [#/Vol] Ordered By: Tru Urbina on 03-15-2021 Platelets (Bld) [#/Vol] 171 10*3/uL 150-450 [facility] RBC Auto (Bld) [#/Vol]Ordere d By: Tru Urbina on 03-15-2021 RBC (Bld) [#/Vol] 4.57 10*6/uL 3.60-5.00 [facility] Creatinine and Glomerular fi ltration rate.predicted panel (S/P/Bld)Ordered By: Alpesh Lind on 02-22-2021 Creatinine [Mass/Vol] 1.10 mg/dL 0.44-1.03 [facility] Estimated glomerular filtrat ion rate (GFR) non- AmericanOrdered By: Alpesh Lind on 02-22-2021 GFR/1.73 sq M.predicted among non-blacks MDRD (S/P/Bld) [Vol rate/Area] 49 mL/Min [facility] No Panel InformationOrdered By: Alpesh Lind on 02-22-2021 Estimated GFR () 59 mL/Min [facility] Comment on above: GFR estimated refere nce range: According to KDOQI guidelines, <60 ml/min/1.73m2 is sufficient to diagnose a patient with chronic kidney disease. Pharmacy Creatinine Clearance (Chem 43.28 [facility] Serum or plasma calcium marcelle urement (mass/volume)Ordered By: Alpesh Lind on 02-22-2021 Calcium [Mass/Vol] 10.0 mg/dL 8.2-10.2 [facility] Serum or plasma chloride chandrika surement (moles/volume)Ordered By: Alpesh Lind on 02-22-2021 Chloride [Moles/Vol] 104 mmol/L 95-114 [facility] Serum or plasma glucose marcelle urement (mass/volume)Ordered By: Alpesh Lind on 02-22-2021 Glucose [Mass/Vol] 110 mg/dL 70-100 [facility] Comment on above: ADA recommended refe rence rangeRandom Glucose Reference Range is dependent on time and content of last meal. Glucose of more than 200 mg/dL in a nonstressed, ambulatory subject supports the diagnosis of Diabetes Mellitus. Serum or plasma potassium me asurement (moles/volume)Ordered By: Alpesh Lind on 02-22-2021 Potassium [Moles/Vol] 4.5 mmol/L 3.5-5.1 [facility] Serum or plasma sodium measu rement (moles/volume)Ordered By: Alpesh Lind on 02-22-2021 Sodium [Moles/Vol] 139 mmol/L 136-146 [facility] Serum or plasma total carbon dioxide measurement (moles/volume)Ordered By: Alpesh iLnd on 02-22-2021 CO2 [Moles/Vol] 24.4 mmol/L 22.0-30.0 [facility] Serum or plasma urea nitroge n measurement (mass/volume)Ordered By: Alpesh Lind on 02-22-2021 Urea nitrogen [Mass/Vol] 26 mg/dL 11-04 [facility] PROF 14(COMP METB)on 021 Albumin [Mass/Vol] 3.3 g/dL Critically low 3.5-5.0 [facility] Comment on above: Performed By: #### C MP ####[facility] [address] [place] [address]Dr. Krystal Lewis Albumin/Globulin [Mass ratio] 0.9 {ratio} Normal [facility] Comment on above: Performed By: #### C MP ####[facility] [address] [address]Dr. Krystal Lewis ALP [Catalytic activity/Vol] 87 U/L Normal 38-[address] [facility] Comment on above: Performed By: #### C MP ####[facility] [address] [place] [address]Dr. Krystal Lewis ALT [Catalytic activity/Vol] 18 U/L Normal 9-52 [facility] Comment on above: Performed By: #### C MP ####[facility] [address] [place] [place] [address]Dr. Krystal Lewis Anion gap [Moles/Vol] 10.8 mmol/L Normal [facility] Comment on above: Performed By: #### C MP ####[facility] [address] [place] [address]Dr. Krystal Lewis AST [Catalytic activity/Vol] 16 U/L Normal 14-36 [facility] Comment on above: Performed By: #### C MP ####[facility] [address] [place], [place] [address]Dr. Krystal Lewis Bilirubin [Mass/Vol] 0.5 mg/dL Normal 0.2-1.3 [facility] Comment on above: Performed By: #### C MP ####[facility] [address] [place], [place] [address]Dr. Krystal Lewis Calcium [Mass/Vol] 9.8 mg/dL Normal 8.4-10.2 [facility] Comment on above: Performed By: #### C MP ####[facility] [address] [place], [place] [address]Dr. Krystal Lewis Chloride [Moles/Vol] 104 mmol/L Normal 98-107 [facility] Comment on above: Performed By: #### C MP ####[facility] [address] [place], [place] [address]Dr. Krystal Lewis CO2 [Moles/Vol] 29.8 mmol/L Normal 22.0-30.0 [facility] Comment on above: Performed By: #### C MP ####[facility] [address] [place], [place] [address]Dr. Krystal Lewis Creatinine [Mass/Vol] 1.01 mg/dL Normal 0.52-1.04 [facility] Comment on above: Performed By: #### C MP ####[facility] [address] [place], [place] [address]Dr. Krystal Lewis EGFR-AF BOLIVIAN >60 Normal >=60 [facility] Comment on above: Performed By: #### C MP ####[facility] [address] [place], [place] [address]Dr. Krystal Lewis EGFR-NON AF BOLIVIAN 54 mL/min/1.73m2 Critically low >=60 [facility] Comment on above: Performed By: #### C MP ####[facility] [address] [place] [place] [address]Dr. Krystal Lewis Globulin (S) [Mass/Vol] 3.5 g/dL Normal [facility] Comment on above: Performed By: #### C MP ####[facility] [address] [place] [id number]. Krystal Lewis Glucose [Mass/Vol] 93 mg/dL Normal 74-106 [facility] Comment on above: Performed By: #### C MP ####[facility] [address] [place] [place] [address]Dr. Krystal Joshua Potassium [Moles/Vol] 4.6 mmol/L Normal 3.4-5.0 [facility] Comment on above: Performed By: #### C MP ####[facility] [address] [place], [place] [address]Dr. Krystal Lewis Protein [Mass/Vol] 6.8 g/dL Normal 6.1-8.2 [facility] Comment on above: Performed By: #### C MP ####[facility] [address] [place], [place] [address]Dr. Krystal Lewis Sodium [Moles/Vol] 140 mmol/L Normal 137-145 [facility] Comment on above: Performed By: #### C MP ####[facility] [address] [place] [place] [address]Dr. Krystal Joshua Urea nitrogen [Mass/Vol] 27.0 mg/dL Critically high 7.0-17.0 [facility] Comment on above: Performed By: #### C MP ####[facility] [address] [place], [place] [address]Dr. Georgettedonell Joshua Urea nitrogen/Creatinine [Mass ratio] 26.7 mg/mg Normal [facility] Comment on above: Performed By: #### C MP ####[facility] [address] [place], [place] [address]Dr. Krystal Lewis CARDIAC STRESS TEST 2020 CARDIAC STRESS TEST [facility] [place], [place] NAME: ISABELLA HORNE DATE OF : MEDICAL REC#: [id number] BAD CLOTH CHECKER: 142IRINA CHRISTIAN ADMIT DATE: 01/24/2021 08:17:00 EXHIBIT ARTIST DATE: 01/24/2021 11:00 DICTATING PHYSICIAN: CHRISTINA VALERA [...] Christina Valera MD on 01/24/2021 07:09 PM [facility] Signed and Approved by: DR CHRISTINA VALERA 01/24/2021 19:09:[address] [facility] NM STRESS/REST MULTIon 01-24 NM STRESS/REST MULTI Patient: ISABELLA HORNE. Exam Date: 01/24/2021 : 1950 Gender:F Ordering : DR GERMANIA HELTON M.D. Admission #: [id number] Family : Order #: [id number] CLICK HERE TO VIEW EXAM RADIOLOGY REPORT [...] PERFUSION DEFECT: LOCATION: Mid-anterior. Mid-anteroseptal. Apical anterior. Mcfarland. SIZE: Medium (3-4 segments). SEVERITY: Severe. TYPE: Persistent. WALL MOTION: Akinesis: Mid-anterior. Mcfarland. LV SIZE: Normal. 107 mL. TID / [...] Begum MD on 01/24/2021 at 14:05 Normal [facility] PROF CHEM 8 (BAS METB)on Anion gap [Moles/Vol] 14.1 mmol/L Normal [facility] Comment on above: Performed By: #### B MP #### [facility] [address] [place] [address] Dr. Krystal Lewis Calcium [Mass/Vol] 10.0 mg/dL Normal 8.4-10.2 [facility] Comment on above: Performed By: #### B MP #### [facility] [address] [place] [address] Dr. Krystal Lewis Chloride [Moles/Vol] 105 mmol/L Normal 98-107 [facility] Comment on above: Performed By: #### B MP #### [facility] [address] [place] [address] Dr. Krystal Lewis CO2 [Moles/Vol] 26.0 mmol/L Normal 22.0-30.0 [facility] Comment on above: Performed By: #### B MP #### [facility] [address] [address] [address] Krystal Lewis Creatinine [Mass/Vol] 1.18 mg/dL Critically high 0.52-1.04 [facility] Comment on above: Performed By: #### B MP #### [facility] [address] [address] [address] Krystal Lewis EGFR-AF BOLIVIAN 55 mL/min/1.73m2 Critically low >=60 [facility] Comment on above: Performed By: #### B MP #### [facility] [address] [address] [address] Krystal Lewis EGFR-NON AF BOLIVIAN 45 mL/min/1.73m2 Critically low >=60 [facility] Comment on above: Performed By: #### B MP #### [facility] [address] [address] [address] Krystal Lewis Glucose [Mass/Vol] 104 mg/dL Normal 74-106 [facility] Comment on above: Performed By: #### B MP #### [facility] [address] [address] [address] Krystal Lewis Potassium [Moles/Vol] 5.1 mmol/L Critically high 3.4-5.0 [facility] Comment on above: Performed By: #### B MP #### [facility] [address] [address] [address] Krystal Lewis Sodium [Moles/Vol] 140 mmol/L Normal 137-145 [facility] Comment on above: Performed By: #### B MP #### [facility] [address] [address] [address] Krystal Lewis Urea nitrogen [Mass/Vol] 29.0 mg/dL Critically high 7.0-17.0 [facility] Comment on above: Performed By: #### B MP #### [facility] [address] [address] [address] Krystal Lewis Urea nitrogen/Creatinine [Mass ratio] 24.6 mg/mg Normal [facility] Comment on above: Performed By: #### B MP #### [facility] [address] [place], [place] [address] Dr. Krystal Lewis BNPon 11-20-2020 Natriuretic peptide B (Bld) [Mass/Vol] 1293.0 pg/mL Critically high <=900.[address] [facility] Comment on above: Result Comment: TEST REPEATED CRITICAL VALUE VERIFIED Performed By: #### C MADM, BNP, CMP, CRP ####[facility] [address] [place], [place] [address]XpHilary Lewis CARDIAC ALFREDO ADMITon 021 CK [Catalytic activity/Vol] 86 U/L Normal 30-[address] [facility] Comment on above: Performed By: #### C MADM, BNP, CMP, CRP ####[facility] [address] [place], [place] [address]IvHilary Lewis CK.MB [Mass/Vol] ng/mL Normal <=2.37 [facility] Comment on above: Performed By: #### C MADM, BNP, CMP, CRP ####[facility] [address] [place] [id number] Lewis HSTROP 26.5 pg/mL Normal 4.0-35.[address] [facility] Comment on above: Result Comment: CUT- OFF POINTS HAVE BEEN ESTABLISHED BASED ON THE FOURTH UNIVERSAL DEFINITIONS OF MYOCARDIAL INFARCTION. THE UPPER REFERENCE LIMIT (URL) OF TROPONIN, DEFINED THE 99TH PERCENTILE OF cTnI DISTRIBUTION IN A REFERENCE POPULATION, HAS BEEN CONFIRMED THE DECISION THRESHOLD FOR SD DIAGNOSIS. Performed By: #### C MADM, BNP, CMP, CRP ####[facility] [address] [place], [place] [address]AvHilary Lewis ANTONELLA 77.0 ng/mL Critically high <=61.5 [facility] Comment on above: Performed By: #### C MADM, BNP, CMP, CRP ####[facility] [address] [place] [id number] Lewis CBC AUTO DIFFon 11-20-2020 BASO # 0.0 103/ul Normal 0.0-0.1 [facility] Comment on above: Performed By: #### C BC #### [facility] [address] [place] [address] Dr. Krystal Lewis Basophils/100 WBC (Bld) 0.2 % Normal 0.2-2.0 [facility] Comment on above: Performed By: #### C BC #### [facility] [address] [place] [address] Dr. Krystal Lewis EO # 0.0 103/ul Normal 0.0-0.[address] [facility] Comment on above: Performed By: #### C BC #### [facility] [address] [place] [address] Dr. Krystal Lewis Eosinophils/100 WBC (Bld) 0.0 % Critically low 0.9-7.0 [facility] Comment on above: Performed By: #### C BC #### [facility] [address] [place] [address] Dr. Krystal Lewis Erythrocyte distribution width (RBC) [Ratio] 13.1 % Normal 11.0-15.0 [facility] Comment on above: Performed By: #### C BC #### [facility] [address] [place] [address] Dr. Krystal Lewis Hematocrit (Bld) [Volume fraction] 43.0 % Normal 36.0-48.0 [facility] Comment on above: Performed By: #### C BC #### [facility] [address] [place] [address] Dr. Krystal Lewis Hemoglobin (Bld) [Mass/Vol] 13.9 g/dL Normal 12.0-16.[address] [facility] Comment on above: Performed By: #### C BC #### [facility] [address] [place] [address] Dr. Krystal Lewis IG # 0.03 10e3/ul Normal 0.00-0.03 [facility] Comment on above: Performed By: #### C BC #### [facility] [address] [place] [address] Dr. Krystal Lewis IG % 0.7 % Critically high 0.0-0.5 [facility] Comment on above: Performed By: #### C BC #### [facility] [address] [place] [address] Dr. Krystal Lewis LYMPH # 0.6 103/ul Critically low 1.2-3.8 [facility] Comment on above: Performed By: #### C BC #### [facility] [address] [place] [address] Dr. Krystal Lewis Lymphocytes/100 WBC (Bld) 13.8 % Critically low 20.5-60.0 [facility] Comment on above: Performed By: #### C BC #### [facility] [address] [place] [address] Dr. Krystal Lewis MANUAL DIFF REQ NO Normal [facility] Comment on above: Performed By: #### C BC #### [facility] [address] [place] [address] Dr. Krystal Lewis MCH (RBC) [Entitic mass] 30.6 pg Normal 26.7-34.0 [facility] Comment on above: Performed By: #### C BC #### [facility] [address] [place] [address] Dr. Krystal Lewis MCHC (RBC) [Mass/Vol] 32.3 g/dL Normal 29.9-35.2 [facility] Comment on above: Performed By: #### C BC #### [facility] [address] [place] [address] Dr. Krystal Lewis MCV (RBC) [Entitic vol] 94.7 fL Normal 81.0-99.0 [facility] Comment on above: Performed By: #### C BC #### [facility] [address] [place] [address] Dr. Krystal Lewis MONO # 0.4 103/ul Normal 0.3-0.8 [facility] Comment on above: Performed By: #### C BC #### [facility] [address] [place] [address] Dr. Krystal Lewis Monocytes/100 WBC (Bld) 9.4 % Normal 1.7-12.0 [facility] Comment on above: Performed By: #### C BC #### [facility] [address] [address] [address] Krystal Lewis NEUT # 3.3 103/ul Normal 1.4-6.5 [facility] Comment on above: Performed By: #### C BC #### [facility] [address] [address] [address] Krystal Lewis Neutrophils/100 WBC (Bld) 75.9 % Critically high 43.0-75.0 [facility] Comment on above: Performed By: #### C BC #### [facility] [address] [place] [address] Dr. Krystal Lewis Platelet mean volume (Bld) [Entitic vol] 10.3 fL Normal 9.5-13.5 [facility] Comment on above: Performed By: #### C BC #### [facility] [address] [place] [address] Dr. Krystal Lewis PLT 128 103/ul Critically low 150-450 [facility] Comment on above: Performed By: #### C BC #### [facility] [address] [place] [address] Dr. Krystal Lewis RBC 4.54 106/ul Normal 4.20-5.40 [facility] Comment on above: Performed By: #### C BC #### [facility] [address] [place] [address] Dr. Krystal Lewis WBC 4.3 103/ul Normal 4.0-11.0 [facility] Comment on above: Performed By: #### C BC #### [facility] [address] [place] [address] Dr. Krystal Lewis CRPon 11-20-2020 CRP 6.4 mg/dL Critically high <=1.0 [facility] Comment on above: Performed By: #### C MADM, BNP, CMP, CRP #### [facility] [address] [place] [address] Dr. Krystal Lewis PROF 14(COMP METB)on 021 Albumin [Mass/Vol] 2.9 g/dL Critically low 3.5-5.0 [facility] Comment on above: Performed By: #### C MADM, BNP, CMP, CRP #### [facility] [address] [address] [address] Krystal Lewis Albumin/Globulin [Mass ratio] 0.7 {ratio} Normal [facility] Comment on above: Performed By: #### C MADM, BNP, CMP, CRP #### [facility] [address] [address] [address] Krystal Lewis ALP [Catalytic activity/Vol] 54 U/L Normal 38-126 [facility] Comment on above: Performed By: #### C MADM, BNP, CMP, CRP #### [facility] [address] [place] [address] Dr. Krystal Lewis ALT [Catalytic activity/Vol] 18 U/L Normal 9-52 [facility] Comment on above: Performed By: #### C MADM, BNP, CMP, CRP #### [facility] [address] [place] [address] Dr. Krystal Lewis Anion gap [Moles/Vol] 14.4 mmol/L Normal [facility] Comment on above: Performed By: #### C MADM, BNP, CMP, CRP #### [facility] [address] [place] [address] Dr. Krystal Lewis AST [Catalytic activity/Vol] 36 U/L Normal 14-36 [facility] Comment on above: Performed By: #### C MADM, BNP, CMP, CRP #### [facility] [address] [place] [address] Dr. Krystal Lewis Bilirubin [Mass/Vol] 0.7 mg/dL Normal 0.2-1.3 [facility] Comment on above: Performed By: #### C MADM, BNP, CMP, CRP #### [facility] [address] [place] [address] Dr. Krystal Lewis Calcium [Mass/Vol] 9.3 mg/dL Normal 8.4-10.2 [facility] Comment on above: Performed By: #### C MADM, BNP, CMP, CRP #### [facility] [address] [address] [address] Krystal Lewis Chloride [Moles/Vol] 98 mmol/L Normal 98-107 [facility] Comment on above: Performed By: #### C MADM, BNP, CMP, CRP #### [facility] [address] [place] [address] Dr. Krystal Lewis CO2 [Moles/Vol] 27.7 mmol/L Normal 22.0-30.0 [facility] [employer] Comment on above: Performed By: #### C MADM, BNP, CMP, CRP #### [facility] [address] [address] [address] Krystal Lewis Creatinine [Mass/Vol] 1.23 mg/dL Critically high 0.52-1.04 [facility] Comment on above: Performed By: #### C MADM, BNP, CMP, CRP #### [facility] [address] [place] [address] Dr. Krystal Lewis EGFR-AF BOLIVIAN 52 mL/min/1.73m2 Critically low >=60 [facility] Comment on above: Performed By: #### C MADM, BNP, CMP, CRP #### [facility] [address] [place] [address] Dr. Krystal Lewis EGFR-NON AF BOLIVIAN 43 mL/min/1.73m2 Critically low >=60 [facility] Comment on above: Performed By: #### C MADM, BNP, CMP, CRP #### [facility] [address] [place] [address] Dr. Krystal Lewis Globulin (S) [Mass/Vol] 4.1 g/dL Normal [facility] Comment on above: Performed By: #### C MADM, BNP, CMP, CRP #### [facility] [address] [place] [address] Dr. Krystal Lewis Glucose [Mass/Vol] 154 mg/dL Critically high 74-106 T [facility] Comment on above: Performed By: #### C MADM, BNP, CMP, CRP #### [facility] [address] [place] [address] Dr. Krystal Lewis Potassium [Moles/Vol] 4.1 mmol/L Normal 3.4-5.0 [facility] Comment on above: Performed By: #### C MADM, BNP, CMP, CRP #### [facility] [address] [place] [address] Dr. Krystal Lewis Protein [Mass/Vol] 7.0 g/dL Normal 6.1-8.2 [facility] Comment on above: Performed By: #### C MADM, BNP, CMP, CRP #### [facility] [address] [address] [address] Krystal Lewis Sodium [Moles/Vol] 136 mmol/L Critically low 137-[address] [facility] Comment on above: Performed By: #### C MADM, BNP, CMP, CRP #### [facility] [address] [place] [address] Dr. Krystal Lewis Urea nitrogen [Mass/Vol] 32.0 mg/dL Critically high 7.0-17.0 [facility] Comment on above: Performed By: #### C MADM, BNP, CMP, CRP #### [facility] [address] [place] [address] Dr. Krystal Lewis Urea nitrogen/Creatinine [Mass ratio] 26.0 mg/mg Normal [facility] Comment on above: Performed By: #### C MADM, BNP, CMP, CRP #### [facility] [address] [place] [address] Dr. Krystal Lewis XR CHEST 1 Von [...] by: JHONNY BEGUM Date: 2020-11-20 13:55 Normal [facility] AUD - Assessmentson 10-27-19 20 AUD - Assessments [id number] D:127 Normal [facility] Coding Summary.on 10-27-2019 Coding Summary. CODING DATE: 020 FINAL [facility] STATUS: PAYOR: Medicare APC DESCRIPTION 5722 Level [...] Jay CphT Date Saved: 10/27/2019 03:37 pm [facility] Outside Records Officeon Outside Records Office [id number] D:127 Normal [facility] AUD - Orderson 10-23-2019 AUD - Orders [id number]#1.00C D:127 [facility] AUD - Otheron 10-23-2019 AUD - Other [id number] D:127 [facility] Consenton 10-23-2019 Consent [id number] D:127 [facility] Outside Records Officeon Outside Records Office [id number] D:127 [facility] Vital Signs Date Time Vital Sign Value Performing Clinician Facility 06-17-2024 11: Body height 162.6 cm Jamila Carcamo MD Work Phone: [facility] 06-17-2024 11:23-0400 Body mass index (BMI) [Ratio] 28.32 kg/m2 Jamila Carcamo MD Work Phone: [facility] 06-17-2024 11:23-0400 Body weight 74.84 kg Jamila Carcamo MD Work Phone: [facility] 06-17-2024 11:23-0400 Diastolic blood pressure 52 mm[Hg] Jamila Carcamo MD Work Phone: [facility] 06-17-2024 11:23-0400 Heart rate 84 /min Jamila Carcamo MD Work Phone: [facility] 06-17-2024 11:23-0400 Systolic blood pressure 96 mm[Hg] Jamila Carcamo MD Work Phone: [facility] 04-14-2024 13:38-0500 Body height 162.6 cm Ariel Lopez DPM Work Phone: [facility] 04-14-2024 13:38-0500 Body mass index (BMI) [Ratio] 28.32 kg/m2 Ariel Lopez DPM Work Phone: [facility] 04-14-2024 13:38-0500 Body weight 74.84 kg Ariel Lopez DPM Work Phone: [facility] 01-03-2024 09:16-0500 Body height 162.6 cm Bill Itzkowitz DO Work Phone: [facility] 01-03-2024 09:16-0500 Body mass index (BMI) [Ratio] 26.61 kg/m2 Bill Itzkowitz DO Work Phone: [facility] 01-03-2024 09:16-0500 Body weight 70.31 kg Bill Itzkowitz DO Work Phone: [facility] 01-03-2024 09:16-0500 Diastolic blood pressure 64 mm[Hg] Bill Itzkowitz DO Work Phone: [facility] 01-03-2024 09:16-0500 Systolic blood pressure 118 mm[Hg] Bill Dyeallsuad JUAREZ Work Phone: [facility] 12-12-2023 15:27-0400 Body height 162.6 cm Ariel Elbert DPM Work Phone: [facility] 12-12-2023 15:27-0400 Body mass index (BMI) [Ratio] 25.92 kg/m2 Ariel Lopez DPM Work Phone: [facility] 12-12-2023 15:27-0400 Body weight 68.49 kg Ariel Lopez DPM Work Phone: [facility] 03-28-2021 11:12-0500 Body temperature 98 [degF] MD Hong Schilling Work Phone: [facility] 03-28-2021 11:12-0500 Body weight 68.58 kg MD Hong Schilling Work Phone: [facility] 03-28-2021 11:12-0500 Diastolic blood pressure 66 mm[Hg] MD Hong Schilling Work Phone: [facility] 03-28-2021 11:12-0500 Heart rate 80 /min MD Hong Schilling Work Phone: [facility] 03-28-2021 11:12-0500 Respiratory rate 20 /min MD Hong Schilling Work Phone: [facility] 03-28-2021 11:12-0500 SaO2% (BldA) [Mass fraction] 99 % MD Hong Schilling Work Phone: [facility] 03-28-2021 11:12-0500 Systolic blood pressure 109 mm[Hg] MD Hong Schilling Work Phone: [facility] 03-15-2021 15:30-0500 Diastolic blood pressure 60 mm[Hg] MD Hong Schilling Work Phone: [facility] 03-15-2021 15:30-0500 Heart rate 67 /min MD Hong Schilling Work Phone: [facility] 03-15-2021 15:30-0500 Respiratory rate 16 /min MD Hong Schilling Work Phone: [facility] 03-15-2021 15:30-0500 SaO2% (BldA) [Mass fraction] 96 % MD Hong Schilling Work Phone: [facility] 03-15-2021 15:30-0500 Systolic blood pressure 104 mm[Hg] MD Hong Schilling Work Phone: [facility] 03-15-2021 12:36-0500 Body temperature 97.6 [degF] MD Hong Schilling Work Phone: [facility] 03-15-2021 12:36-0500 Inhaled oxygen flow rate 8 L/min MD Hong Schilling Work Phone: [facility] 03-15-2021 11:17-0500 Body height 162.56 cm MD Hong Schilling Work Phone: [facility] 03-15-2021 11:17-0500 Body mass index (BMI) [Ratio] 25.7 kg/m2 MD Hong Schilling Work Phone: [facility] 03-15-2021 11:17-0500 Body weight 68.03 kg MD Hong Schilling Work Phone: [facility] 02-22-2021 14:37-0500 Diastolic blood pressure 66 mm[Hg] MD Hong Schilling Work Phone: [facility] 02-22-2021 14:37-0500 Heart rate 68 /min MD Hong Schilling Work Phone: [facility] 02-22-2021 14:37-0500 Respiratory rate 16 /min MD Hong Schilling Work Phone: [facility] 02-22-2021 14:37-0500 SaO2% (BldA) [Mass fraction] 97 % MD Hong Schilling Work Phone: [facility] 02-22-2021 14:37-0500 Systolic blood pressure 129 mm[Hg] MD Hong Schilling Work Phone: [facility] 02-22-2021 13:52-0500 Inhaled oxygen flow rate 6 L/min MD Hong Schilling Work Phone: [facility] 02-22-2021 12:14-0500 Body mass index (BMI) [Ratio] 25 kg/m2 MD Hong Schilling Work Phone: [facility] 02-22-2021 11:11-0500 Body height 162.56 cm MD Hong Schilling Work Phone: [facility] 02-22-2021 11:11-0500 Body weight 66.22 kg MD Hong Schilling Work Phone: [facility] 02-22-2021 10:19-0500 Body temperature 98.1 [degF] MD Hong Schilling Work Phone: [facility] 12-31-2020 15:13-0500 Body height 162.56 cm MD Hong Schilling Work Phone: [facility] Encounters Encounter Date Encounter Type Care Provider Facility Start: 06-25-2024 End: 06-25-2024 ambulatory [address] [facility] Start: 06-17-2024 End: 06-17-2024 Matthewboo flowsdevin Carcamo MD Work Phone: [facility] Start: 06-17-2024 End: 06-17-2024 Angieo flowsdevin Carcamo MD Work Phone: [facility] Start: 06-17-2024 End: 06-17-2024 Office outpatient new 30 minutes Jamila Carcamo MD Work Phone: [facility] Comment on above: Asymmetric SNHL (sen sorineural hearing loss) Start: 06-17-2024 End: 06-17-2024 ambulatory JAMILA CARCAMO Not Available Start: 06-13-2024 End: 06-13-2024 Bamboo flowsheet Yanni Ortiz CCC-A Work Phone: [facility] Start: 06-13-2024 End: 06-13-2024 Bamboo flowsheet Yanni Ortiz CCC-A Work Phone: [facility] Start: 06-13-2024 End: 06-13-2024 Clinical Support Yanni Ortiz CCC-A Work Phone: [facility] Comment on above: Asymmetrical sensori neural hearing loss (Primary Dx); Impaired auditory discrimination, right Start: 05-15-2024 End: 05-15-2024 Clinisync Result Encounter Generic External Data Provider [facility] Unsolicited Start: 05-15-2024 End: 05-15-2024 Clinisync Result Encounter Generic External Data Provider [facility] External Department Unsolicited Start: 04-14-2024 End: 04-14-2024 Bamboo flowsheet Ariel S Rusher DPM Work Phone: [facility] Start: 04-14-2024 End: 04-14-2024 Bamboo flowsheet Ariel S Rusher DPM Work Phone: [facility] Start: 04-14-2024 End: 04-14-2024 ambulatory ARIEL S RUSHER Not Available Start: 04-14-2024 End: 04-14-2024 Office outpatient visit 15 minutes Ariel S Rusher DPM Work Phone: [facility] Comment on above: 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, not stated as uncontrolled(250.60) ([facility]) (Primary Dx); Onychodystrophy; Onychomycosis Start: 01-09-2024 End: 01-09-2024 ambulatory ARIEL S RUSHER Not Available Start: 01-09-2024 End: 01-09-2024 Office outpatient visit 25 minutes Ariel S Rusher DPM Work Phone: [facility] Comment on above: 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, not stated as uncontrolled(250.60) ([facility]) (Primary Dx); Hammer toe of left foot; Contracture of toe of left foot; Corns and callosities Start: 01-03-2024 End: 01-03-2024 Office outpatient visit 25 minutes Bill H Valeri DO Work Phone: [facility] Comment on above: Malignant neoplasm o f central portion of right breast in female, estrogen receptor negative ([facility]) (Primary Dx) Start: 01-03-2024 End: 01-03-2024 ambulatory BILL H VALERI Not Available Start: 12-12-2023 End: 12-12-2023 ambulatory ARIEL LOPEZ Not Available Start: 12-12-2023 End: 12-12-2023 Office outpatient visit 25 minutes Ariel Lopez DPM Work Phone: [facility] Comment on above: 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, not stated as uncontrolled(250.60) ([facility]) (Primary Dx); Ulcer of left foot with fat layer exposed ([facility]); Hammer toe of left foot; Contracture of toe of left foot; Peripheral vascular disease ([facility]) Start: 12-12-2023 End: 12-12-2023 Bamboo flowsheet Ariel Lopez DPM Work Phone: [facility] Start: 12-12-2023 End: 12-12-2023 Bamboo flowsheet Ariel Lopez DPM Work Phone: [facility] Start: 11-26-2023 End: 11-26-2023 Patient encounter procedure MD Hong Schilling Work Phone: [facility] Work Phone: Start: 11-26-2023 End: 11-26-2023 ambulatory Billmelinda Trammell Facility:[facility] Start: 09-03-2023 End: 09-03-2023 ambulatory BILL Mack VALERI Not Available Start: 08-30-2023 End: 08-30-2023 ambulatory BETSEY BRIGITTE Not Available Start: 08-28-2023 End: 08-29-2023 ambulatory DANE LOZADA Not Available Start: 08-23-2023 End: 08-23-2023 ambulatory DANE LOZADA Not Available Start: 08-21-2023 End: 08-21-2023 ambulatory ELISEO CHOU Not Available Start: 08-14-2023 End: 08-14-2023 ambulatory FRANCHESCA CADENA Not Available Start: 08-09-2023 End: 08-09-2023 ambulatory BETSEY BRIGGS Not Available Start: 08-03-2023 End: 08-06-2023 ambulatory DANE LOZADA Not Available Start: 08-01-2023 End: 08-01-2023 ambulatory DANE LOZADA Not Available Start: 07-26-2023 End: 07-26-2023 ambulatory DANE LOZADA Not Available Start: 07-24-2023 End: 07-24-2023 ambulatory BETSEY BRIGGS Not Available Start: 07-17-2023 Patient encounter procedure Ariel Lopez DPM Work Phone: [facility] Start: 07-17-2023 End: 07-17-2023 ambulatory HONG SCHILLING Not Available Start: 10-21-2021 End: 10-22-[address] HONG SCHILLING Facility:[facility] Start: 07-13-2021 End: 07-14-2021 ambulatory YUMIKO BENITEZ Facility:[facility] Start: 05-18-2021 End: 05-18-2021 Patient encounter procedure MD Hong Schilling Work Phone: [facility] [address] Start: 04-18-2021 End: 04-19-[address] HONG SCHILLING Facility:[facility] Start: 03-28-2021 Registered Recurring MD Hong Schilling Work Phone: [facility] Start: 03-15-2021 End: 03-15-2021 Admission to same day surgery center MD Hong Schilling [facility] Phone: [facility] Start: 02-22-2021 End: 02-22-2021 Admission to same day surgery center MD Hong Schilling Work Phone: [facility] Start: 02-09-2021 End: 02-10-[address] GERMANIA HELTON Facility:[facility] Start: 01-24-2021 End: 01-25-[address] JHONNY BEGUM Facility:[facility] Start: 11-20-2020 End: 11-20-[address] JUAN APODACA Facility:[facility] Start: 11-18-2020 End: 11-18-[address] JHONNY BEGUM Facility:[facility] Start: 07-17-2017 End: 07-18-2017 Ambulatory DEFAULT PHYSICIAN Facility:[facility] Procedures Date Procedure Procedure Detail Performing Clinician Start: 06-13-2024 AUDITORY FUNCTION TESTS Yanni Ortiz [facility] Work Phone: Start: 05-15-2024 CA ECHO DOPPLER COMPLETE Generic Externa l Data Provider Start: 11-26-2023 Bilateral mammography MD Hong Schilling Work Phone: Start: 04-02-2023 History of coronary artery bypass grafting Hx of CABG Jamila Carcamo MD Work Phone: Start: 12-13-2022 Colonoscopy Ariel Lopez DPM Work Phone: Start: 05-18-2021 Magnetic resonance cholangiopancreatography MD Hong Schilling Work Phone: Start: 03-15-2021 Lumpectomy of right breast MD Hong Schilling Work Phone: Start: 02-22-2021 Mammography of right breast specimen MD Hong Schilling Work Phone: Start: 02-22-2021 Lumpectomy of right breast MD Hong Schilling Work Phone: Start: 02-22-2021 Excision of cyst MD Hong Schilling Work Phone: Start: 02-22-2021 Radionuclide sentinel lymph node study MD Hong Schilling Work Phone: Start: 02-22-2021 Mammography of right breast MD Hong natarajan Work Phone: Start: 02-22-2021 Ultrasonography guided needle localization of lesion of right breast MD Hong Schilling Work Phone: History of coronary artery bypass grafting Hx of CABG MD Hong Schilling Work Phone: Plan of Treatment Date Care Activity Detail Author Start: 12-13-2032 Screening for malign ant neoplasm of colon [facility] Start: 03-10-2025 Glaucoma screening Diabetes: R etinopathy Screening [facility] Start: 10-13-2024 Influenza vaccination Influenz a Vaccine (Season Ended) [facility] Start: 07-22-2024 Urine screening for protein Diabetes: Urine Protein Screening [facility] Start: 07-21-2024 End: 07-21-2024 Patient encounter procedure 07/21/2024 10:30 AM EDT [facility] [address] [facility] [address] [place] [phone] Hong Schilling MD [address] [facility] [address] [place] [address] [facility] Start: 07-16-2024 Medicare Annual Wellness (AWV) Medicare Annual Wellness (AWV) [facility] Start: 07-16-2024 End: 07-16-2024 Patient encounter procedure 07/16/2024 1:30 PM EDT Procedure Visit [facility] [address] [place] [phone] Ariel Lopez, DPM [address] [place] [address] [facility] Start: 07-03-2024 End: 07-03-2024 Patient encounter procedure 07/03/2024 10:30 AM EDT Office Visit [facility] [address] [phone] Bill Trammell DO [address] [facility] [address] [place] [address] [facility] Start: 06-17-2024 End: 06-17-2024 Patient encounter procedure [facility] Comment on above: Hearing loss associa gabo with syndrome of both ears Start: 06-13-2024 End: 06-13-2024 Clinical Support [facility] Comment on above: Arrived Start: 04-14-2024 End: 04-14-2024 Patient encounter procedure 04/14/2024 1:30 PM EST Procedure Visit [facility] [address] [facility] [place] [address] Ariel Lopez, DPM [address] [place] [address] [facility] Start: 03-05-2024 Glaucoma screening Diabetes: R etinopathy Screening [facility] Start: 01-09-2024 End: 01-09-2024 Patient encounter procedure 01/09/2024 2:15 PM EST Office Visit [facility] [address] [facility] [place] [address] Ariel Lopez, DPM [address] [place] [address] [facility] Start: 01-03-2024 End: 01-03-2024 Patient encounter procedure 01/03/2024 11:15 AM EST Office Visit [facility] [address] [phone] Bill Trammell DO [address] [facility] [address] [place] [address] [facility] Start: 10-17-2023 Hemoglobin A1c measurement Diabetes: Hemoglobin A1C [facility] Start: 10-14-2023 Influenza vaccination Influenza Vacc ine (#1) [facility] Start: 02-21-2018 Pneumococcal Vaccine : 65+ Years (2 of 2 - PPSV23 or PCV20) Pneumococcal Vaccine: 65+ Years (2 of 2 - PPSV23 or PCV20) [facility] Start: 02-21-2018 Pneumococcal Vaccine : 65+ Years (2 of 2 - PPSV23) Pneumococcal Vaccine: 65+ Years (2 of 2 - PPSV23) [facility] Start: 1950 Screening for malign ant neoplasm of colon [facility] Patient referral [facility] Work Phone: Immunizations Immunization Date Immunization Notes Care Provider Fa harry 08-20-2018 zoster vaccine, live Arielherve Lopez DPM Work Phone: [facility] 12-27-2017 pneumococcal conjuga te vaccine, 13 valent Ariel Rus DPM Work Phone: [facility] 08-30-2017 tetanus toxoid, redu leora diphtheria toxoid, and acellular pertussis vaccine, adsorbed Ariel Rusher DPM Work Phone: [facility] 01-04-2009 tetanus and diphther ia toxoids, adsorbed, preservative free, for adult use (5 Lf of tetanus toxoid and 2 Lf of diphtheria toxoid) Arielherve Lopez DPM Work Phone: [facility] Payers Date Payer Category Payer Self-pay [id number] 2014 Medicare MEDICARE [id number] 2014 Private Health Insurance [employer] [id number] 1959 Medicare [id number] 1959 Unknown [id number] 1949 Unknown [id number] 2.16.840.1.327962.3.579.2 .593 1949 Unknown [id number] 2.16.840.1.534183.3.579.2 .593 1949 Unknown [id number] 2.16.840.1.250849.3.579.2 .593 1949 Unknown [id number] 2.16.840.1.580558.3.579.2 .593 1949 Unknown [id number] 2.16.840.1.343512.3.579.2 .593 1949 Unknown [id number] 2.16.840.1.484572.3.579.2 .593 1949 Unknown [id number] 2.16.840.1.984337.3.579.2 .593 1949 Unknown [id number] 2.16.840.1.239246.3.579.2 .593 1949 Unknown [id number] 2.16.840.1.074871.3.579.2 .1259 1949 Unknown [id number] 2.16.840.1.004098.3.579.2 .1259 1949 Unknown [id number] 2.16.840.1.010787.3.579.2 .1259 1949 Unknown [id number] 2.16.840.1.212080.3.579.2 .1259 1949 Unknown [id number] 2.16.840.1.853134.3.579.2 .1258 1949 Unknown [id number] 2.16.840.1.961632.3.579.2 .1258 1949 Unknown [id number] 2.16.840.1.001972.3.579.2 .1258 1949 Unknown [id number] 2.16.840.1.285867.3.579.2 .1258 1949 Unknown [id number] 2.16.840.1.098795.3.579.2 .1258 1949 Unknown [id number] 2.16.840.1.880183.3.579.2 .1258 1949 Unknown [id number] 2.16840.1.737073.3.579.2 .1258 1949 Unknown [id number] 2.16.840.1.232431.3.579.2 .1258 1949 Unknown [id number] 2.16.840.1.539769.3.579.2 .1258 1949 Unknown [id number] 2.16.840.1.626551.3.579.2 .1258 1949 Unknown [id number] 2.16.840.1.604641.3.579.2 .1258 1949 Unknown [id number] 2.16.840.1.278534.3.579.2 .1258 1949 Unknown [id number] 2.16.840.1.176482.3.579.2 .1258 1949 Unknown [id number] 2.16.840.1.694345.3.579.2 .1259 Private Health Insurance [id number] Unknown Unknown [id number] 2.16.840.1.685380.3.579.2 .531 Social History Date Type Detail Facility Start: 03-15-2021 [facility] Start: 1950 Sex Assigned At Female F [facility] Start: 07-25-2022 [facility] Start: 07-25-2022 Tobacco use and exposure Smokeless tobacco non-user [facility] Start: 09-03-2023 End: 06-17-2024 Alcoholic beverage intake Lifetime non-drinker (finding) [facility] Start: 07-17-2023 End: 09-03-2023 History of Social function [facility] Start: 07-17-2023 End: 09-03-2023 Tobacco use panel [facility] Start: 12-28-2022 Alcohol Comment Caffeine Intak e: 1-2 cups per day coffee, soda/pop [facility] Start: 1950 Sex assigned at Not on file N [facility] Medical Equipment Procedure Code Equipment Code Equipment Origin al Text Equipment Identifier Dates Biopsy, breast, with lumpectomy Imaging lesion localization marker, implantable [id number] FDA Start: 02-22-2021 Goals Date Patient Goal Desired Activity /State Clinical Notes 11-18-2020 to 06-25-2024 Jamila Carcamo MD - 06/17/2024 11:30 AM Osmany Ortiz, CCC-A - 06/13/2024 1:00 PM Daniela Lopez DPM - 04/14/2024 1:30 PM Kacie Lopez DPM - 01/09/2024 2:15 PM EST Note Date & Type Note Facility 06-25-2024 Note [facility] Cardiology Clinic Note Chief Complaint: Patient here for a 1 year follow up with ECHO. Patient states she is feeling really good, she doing gardening and yard work. Patient does state here feel hurt at times they feel like pins/ needles/ numbness and tingling in here feet. HPI: Isabella Horne is a 72 y.o. female Patient [...] family physician. No blood in the stools. Update 04/02/2023: Doing well. No significant new symptoms. Nonischemic stress test 09/2022 with an ejection fraction 41% UPDATE 06/25/2024 Doing well from a symptom standpoint; she is active, she has no exertional symptoms Cardiology ROS: Review of Systems Cardiovascular: Positive for chest pain and leg swelling (intermittent). Neurological: Positive for numbness (tingling/pins and needles bilateral feet). Psychiatric/Behavioral: Positive for memory loss. All other systems reviewed and are negative. Past Medical History She has a past medical history of Abnormal ECG, Cancer ([facility]), CHF (congestive heart failure) ([facility]), Coronary artery disease, Heart valve disease, and Hyperlipidemia. Surgical History She has a past surgical history that includes Cardiac catheterization and Coronary artery bypass graft. Social History She reports that she quit smoking about 53 years ago. Her smoking use included cigarettes. She has never used smokeless tobacco. She reports that she does not drink alcohol. No history on file for drug use. Family History Family History Problem Relation Name Age of Onset Coronary artery disease Brother Allergies Patient has no known allergies. Medications Current Outpatient Medications: aspirin 81 mg EC tablet, Take 1 tablet by mouth in the morning., Disp: , Rfl: carvedilol (Coreg) 3.125 mg tablet, Take 1 tablet twice a day by oral route for 90 days., Disp: , Rfl: empagliflozin (Jardiance) 10 mg, Take 1 tablet by mouth in the morning., Disp: , Rfl: famotidine (Pepcid) 20 mg tablet, Take 1 tablet every day by oral route for 90 days., Disp: , Rfl: ferrous sulfate 325 (65 Fe) MG tablet, Take 325 mg by mouth every 8 (eight) hours., Disp: , Rfl: fexofenadine-pseudoephedrine (Ritika-D) 60-120 mg 12 hr tablet, Take 1 tablet by mouth twice a day., Disp: , Rfl: levothyroxine (Synthroid, Levoxyl) 88 mcg tablet, Take 1 tablet every day by oral route for 90 days., Disp: , Rfl: magnesium oxide (Mag-Ox) 400 mg (241.3 mg magnesium) tablet, Take 400 mg by mouth twice a day., Disp: , Rfl: multivitamin (Theragran-M) 9 mg iron-400 mcg tablet, Take 1 tablet by mouth in the morning., Disp: , Rfl: omeprazole (PriLOSEC) [address] capsule, Take 1 capsule every day by oral route for 90 days., Disp: , Rfl: oxybutynin XL (Ditropan-XL) 15 mg 24 hr tablet, Take 1 tablet every day by oral route for 90 days., Disp: , Rfl: pravastatin (Pravachol) 40 mg tablet, Take 1 tablet every day by oral route for 90 days., Disp: , Rfl: sacubitril-valsartan (Entresto) 49-51 mg tablet, Take 1 tablet twice a day by oral route., Disp: , Rfl: Last Recorded Vitals BP 123/75 (BP Location: Right arm, Patient Position: Sitting) Pulse 80 Ht 1.651 m (5' 5 ) Wt 73.9 kg (163 lb) SpO2 97% BMI 27.12 kg/m??? Physical Examination: GENERAL: alert and oriented [...] and lower extremities. PSYCH: appropriate mood, affect, a (more content not included)... [facility] 06-17-2024 History of Present illness Narrative Subjective Patient ID: Isabella Horne is a 74 y.o. female who presents for Hearing Loss (Audio 06/13/24) Pt reports about a 5 year h/o hearing loss. Audio shows markedly asymmetric right SNHL. Seen in 2019 for the same problem and retrocochlear path ruled out with an ABR. Review of Systems All other systems reviewed and are negative. Family History Problem Relation Name Age of Onset Hypertension Father My dad ? 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 Allergic rhinitis 01/19/2015 Anger reaction 08/09/2017 Asymmetrical sensorineural hearing loss 08/13/2019 Calculus of gallbladder without cholecystitis without obstruction 09/04/2022 Chronic diastolic heart failure (CMS/HCC) 09/04/2022 Chronic systolic heart failure (CMS/HCC) 03/12/2012 Conductive hearing loss, bilateral 03/24/2019 Diabetic renal disease (CMS/HCC) 07/01/2015 Diabetic retinopathy associated with type 2 diabetes mellitus (CMS/HCC) 05/21/2018 Diastolic dysfunction with acute on chronic heart failure (CMS/HCC) 02/17/2016 Disorder of lipid metabolism (CMS/HCC) 09/23/2013 COVID-19 virus detected 11/23/2020 Edema 01/19/2015 Elevated liver enzymes 09/04/2022 Acquired hammer toe of left foot 09/04/2022 Acquired hammer toe of right foot 09/04/2022 Hammer toe 09/04/2022 Headache 09/02/2015 Hiatal hernia 06/28/2015 History of COVID-19 09/04/2022 History of stroke without residual deficits 01/01/2015 Hypercholesterolemia ([facility]) 11/28/2016 Hyperlipidemia ([facility]) 03/12/2012 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 disorder ([facility]) 01/01/2015 Hypertensive heart failure ([facility]) 09/04/2022 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 04/11/2018 Loss of taste 11/18/2020 LPRD (laryngopharyngeal reflux disease) 12/27/2016 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 breast ([facility]) 09/04/2022 Mild episode of recurrent major depressive disorder (HCC) ([facility]) 09/04/2022 Mitral valve disorder 03/12/2012 Mild nonproliferative diabetic retinopathy associated with type 2 diabetes mellitus ([facility]) 09/04/2022 Moderate nonproliferative diabetic retinopathy without macular edema associated with type 2 diabetes mellitus ([facility]) 11/18/2015 Neuropathy 09/02/2015 Nonproliferative diabetic retinopathy of left eye ([facility]) 01/01/2020 Osteoporosis ([facility]) 03/01/2015 Ischemic heart disease ([facility]) 03/10/2013 Other forms of chronic ischemic heart disease 09/23/2013 Paralyzed vocal cords 11/28/2016 Peripheral angiopathy due to type 2 diabetes mellitus ([facility]) 09/17/2018 Diabetic autonomic neuropathy associated with type 2 diabetes mellitus ([facility]) 08/22/2018 Diabetic peripheral neuropathy associated with type 2 diabetes mellitus ([facility]) 09/23/2015 Polyneuropathy due to type 2 diabetes mellitus ([facility]) 09/04/2022 Primary osteoarthritis, right hand 09/04/2022 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 accident 03/24/2019 Retained orthopedic hardware 03/04/2019 RLS (restless legs syndrome) 11/28/2016 Seasonal allergic rhinitis due to pollen 06/05/2017 Secondary cardiomyopathy ([facility]) 09/04/2022 Tension headache 02/17/2016 Thrombocytopenia ([facility]) 11/22/2020 Triple negative malignant neoplasm of breast ([facility]) 09/04/2022 Type 2 diabetes mellitus with peripheral vascular disease ([facility]) 09/04/2022 Type 2 diabetes mellitus 03/12/2012 Vascular dementia 09/04/2022 Reduced ejection fraction concurrent with and due to chronic heart failure ([facility]) 11/21/2018 Sensorineural hearing loss, unilateral, right ear, with unrestricted hearing on the contralateral side 09/15/2019 Medicare annual wellness visit, subsequent 09/06/2022 Personal history of breast cancer 11/22/2022 Numbness and tingling of both legs 05/07/2023 Spinal stenosis of lumbar region with neurogenic claudication 05/07/2023 Benign essential hypertension ([facility]) 07/17/2023 Abnormal ECG 04/02/2023 Hx of CABG 04/02/2023 Resolved Ambulatory Problems Diagnosis Date Noted No Resolved Ambulatory Problems Past Medical History: Diagnosis Date 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 Aphasia Arthritis Breast cancer ([facility]) 11/17/2020 CAD (coronary artery disease) ([facility]) 2014 Cerebrovascular accident ([facility]) 2006 CHF (congestive heart failure) ([facility]) Chronic ischemic heart disease COVID 11/17/2020 Diabetes mellitus ([facility]) 2013 Diverticulosis Dizziness GERD (gastroesophageal reflux disease) 2014 Heart disease Heat exhaustion Hemoptysis 2014 History of being hospitalized 2006 History of being hospitalized 11/20/2020 History of medical problems History of tonsillitis Hypertension ([facility]) Hypothyroidism (acquired) ([facility]) Measles Mumps Myocardial infarction ([facility]) 12/03/2006 Pneumonia 2014 Sebaceous cyst 2011 Thyroid disease ([facility]) Past Surgical History: Procedure Laterality Date ANAL SPHINCTEROTOMY BREAST LUMPECTOMY Right 02/22/2021 CARDIAC CATHETERIZATION CATARACT EXTRACTION Right 2010 CATARACT EXTRACTION Left 2008 CATARACT EXTRACTION Right 2019 COLONOSCOPY 2013 CORONARY ARTERY BYPASS GRAFT 2007 DERMOID CYST EXCISION EXCISION / BIOPSY BREAST / NIPPLE / DUCT 03/15/2021 FRACTURE SURGERY 2019 KNEE ARTHROSCOPY W/ LASER PATELLA FRACTURE SURGERY TRIGGER FINGER RELEASE 2013 ULTRASOUND GUIDED BREAST BIOPSY Right 11/09/2020 WISDOM TOOTH EXTRACTION 04/25/2021 No Known Allergies Current Outpatient Medications on File Prior to Visit Medication Sig Dispense Refill ammonium lactate (Amlactin) 12 % cream Apply topically Daily 140 g 3 ASPIRIN 81 PO Take by mouth carvedilol (Coreg) 3.125 MG tablet Take 1 tablet (3.125 mg) by mouth in the morning and 1 tablet (3.125 mg) before bedtime. 180 tablet 0 cinnamon 500 MG capsule Take 500 mg by mouth Daily famotidine (Pepcid) 20 MG tablet TAKE 1 TABLET AT BEDTIME 100 tablet 1 ferrous sulfate 325 (65 Fe) MG tablet Take 1 tablet (325 mg) by mouth every 8 (eight) hours 270 tablet 3 fexofenadine-pseudoephedrine ER (Ritika-D) 60-120 MG 12 hr tablet Take 1 tablet by mouth in the morning and 1 tablet in the evening. Jardiance 10 MG TAKE 1 TABLET EVERY DAY 90 tablet 3 levothyroxine (Synthroid, Levoxyl) 88 MCG tablet Take 1 tablet (88 mcg) by mouth in the morning. 90 tablet 0 magnesium 250 MG tablet every 12 (twelve) hours Multiple Vitamins-Minerals (Thera-M) tablet Take 1 tablet by mouth in the morning. omeprazole (PriLOSEC) [address] capsule TAKE 1 CAPSULE EVERY DAY 60 capsule 0 oxybutynin XL (Ditropan-XL) 15 MG 24 hr tablet Take 1 tablet (15 mg) by mouth in the morning. 90 tablet 0 pravastatin (Pravachol) 40 MG tablet Take 1 tablet (40 mg) by mouth Daily 90 tablet 0 sacubitril-valsartan (Entresto) 49-51 MG tablet every 12 (twelve) hours fluticasone (Flonase) 50 MCG/ACT nasal spray Administer 1-2 sprays into each nostril Daily Shake gently. Before first use, prime pump. After use, clean tip and replace cap. 16 g 2 No current facility-administered medications on file prior to visit. Objective Last Recorded Vitals Vitals: 06/17/24 1123 BP: 96/52 Pulse: 84 ENT Physical Exam Constitutional Appearance: patient appears well-developed, well-nourished and well-groomed, Head and Face Appearance: head appears normal and face appears atraumatic; Ear Ear Canals: right ear canal normal; left ear canal normal; Tympanic Membranes: right tympanic membrane normal; left tympanic membrane normal; Nose External Nose: nares patent bilaterally; external nose normal; Internal Nose: septum normal; Oral Cavity/Oropharynx Tongue: normal; Oral mucosa: normal; Hard palate: normal; Soft palate: normal; Tonsils: normal; Neck Neck: neck normal; neck palpation normal; Thyroid: thyroid normal; Respiratory Inspection: breathing unlabored; normal breathing rate; Auscultation: breath sounds are clear; Cardiovascular Inspection: extremities are warm and well perfused; no peripheral edema present; Auscultation: regular rate and rhythm; Assessment/Plan Diagnoses and all orders for this visit: Asymmetric SNHL (sensorineural hearing loss) - Ambulatory referral to ENT Severe michele R>L SNHL. Acoustic neuroma ruled out. Recommend michele BELLAMY documented in this encounter [facility] 06-13-2024 History of Present illness Narrative History: Pt was referred to ENT because of hearing loss. Pt has history of bilateral sensorineural hearing loss, slightly worse in her right ear. Word discrimination score is poor in the right ear. Last audio at this office was 08-13-19. Pt is having more issues hearing and may be ready to try hearing aids again. Otoscopic Exam: Ear canal clear and TM intact AU Pure Tone Audiometry Right Ear: Mild sloping to profound sensorineural hearing loss Left Ear: Mild sloping to profound sensorineural hearing loss above 500 Hz Speech Audiometry Right SRT > 95 dB (masked) and word discrimination score at 85 dBHL (masked) = 0% Left SRT = 50 dB and word discrimination score at 70 dBHL (masked) = 88% Tympanometry Spearfish equipment not working documented in this encounter [facility] 04-14-2024 History of Present illness Narrative Images from the original note were not included. Subjective Patient ID: Isabella Horne is a 74 y.o. female who presents for DM Foot Care (Pt is here today with her spouse requesting diabetic foot care /BS: 90 A1c: 5.7/LV Dr. Schilling 07-17-2023). HPI Established patient returns to clinic for diabetic foot evaluation. She does not have any concerns today. Review of Systems Constitutional: Negative for activity change and appetite change. Respiratory: Negative for chest tightness and shortness of breath. Cardiovascular: Positive for leg swelling. Negative for chest pain. Musculoskeletal: Positive for arthralgias. Skin: Negative for color change and wound. Neurological: Positive for weakness and numbness. Psychiatric/Behavioral: Negative for agitation and behavioral problems. Hematological: Does not bruise/bleed easily. Endocrine: Negative for cold intolerance and heat intolerance. Allergic/Immunologic: Negative for immunocompromised state. 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 CAD (coronary artery disease) ([facility]) 2013 Cerebrovascular accident ([facility]) 2006 CHF (congestive heart failure) ([facility]) Chronic ischemic heart disease ([facility]) COVID 11/17/2020 Positive, unvaccinated Diabetes mellitus ([facility]) 2012 Type 2 without complication Diverticulosis Dizziness Inner ear infection Edema GERD (gastroesophageal reflux disease) 2014 Heart disease Heat exhaustion UTI Hemoptysis 2014 History of being hospitalized 2006 Blood transfusion History of being hospitalized 11/20/2020 ER COVID pneumonia [facility] History of medical problems Sphincter History of tonsillitis Hypertension ([facility]) Hypothyroidism (acquired) ([facility]) Measles Mumps Myocardial infarction ([facility]) 12/03/2006 Osteoporosis ([facility]) Pneumonia 2014 Sebaceous cyst 2011 Thyroid disease ([facility]) Medications Current Outpatient Medications: ammonium lactate (Amlactin) 12 % cream, Apply topically Daily, Disp: 140 g, Rfl: 3 ASPIRIN 81 PO, Take by mouth, Disp: , Rfl: carvedilol (Coreg) 3.125 MG tablet, TAKE 1 TABLET TWICE DAILY, Disp: 200 tablet, Rfl: 1 cinnamon 500 MG capsule, Take 500 mg by mouth in the morning., Disp: , Rfl: famotidine (Pepcid) 20 MG tablet, TAKE 1 TABLET AT BEDTIME, Disp: 100 tablet, Rfl: 1 ferrous sulfate 325 (65 Fe) MG tablet, Take 1 tablet (325 mg) by mouth every 8 (eight) hours, Disp: 270 tablet, Rfl: 3 fexofenadine-pseudoephedrine ER (Ritika-D) 60-120 MG 12 hr tablet, Take 1 tablet by mouth in the morning and 1 tablet in the evening., Disp: , Rfl: fluticasone (Flonase) 50 MCG/ACT nasal spray, Administer 1-2 sprays into each nostril Daily Shake gently. Before first use, prime pump. After use, clean tip and replace cap., Disp: 16 g, Rfl: 2 Jardiance 10 MG, TAKE 1 TABLET EVERY DAY, Disp: 90 tablet, Rfl: 3 levothyroxine (Synthroid, Levoxyl) 88 MCG tablet, TAKE 1 TABLET EVERY MORNING, Disp: 100 tablet, Rfl: 1 magnesium 250 MG tablet, every 12 (twelve) hours., Disp: , Rfl: Multiple Vitamins-Minerals (Thera-M) tablet, Take 1 tablet by mouth in the morning., Disp: , Rfl: omeprazole (PriLOSEC) [address] capsule, TAKE 1 CAPSULE EVERY DAY, Disp: 100 capsule, Rfl: 3 oxybutynin XL (Ditropan-XL) 15 MG 24 hr tablet, TAKE 1 TABLET EVERY MORNING, Disp: 100 tablet, Rfl: 1 pravastatin (Pravachol) 40 MG tablet, TAKE 1 TABLET EVERY DAY, Disp: 100 tablet, Rfl: 1 sacubitril-valsartan (Entresto) 49-51 MG tablet, every 12 (twelve) hours., Disp: , Rfl: Allergies Patient has no known allergies. Past Surgical History Past Surgical History: Procedure Laterality Date ANAL SPHINCTEROTOMY BREAST LUMPECTOMY Right 02/22/2021 CARDIAC CATHETERIZATION CATARACT EXTRACTION Right 2009 CATARACT EXTRACTION Left 2008 CATARACT EXTRACTION Right 2018 COLONOSCOPY 2013 CORONARY ARTERY BYPASS GRAFT 2007 DERMOID CYST EXCISION EXCISION / BIOPSY BREAST / NIPPLE / DUCT 03/15/2021 FRACTURE SURGERY 2019 KNEE ARTHROSCOPY W/ LASER PATELLA FRACTURE SURGERY TRIGGER FINGER RELEASE 2013 ULTRASOUND GUIDED BREAST BIOPSY Right 11/09/2020 WISDOM TOOTH EXTRACTION 04/25/2021 Family History Family History Problem Relation Name Age of Onset Hypertension Father My dad ? Cancer Maternal Grandfather Diabetes Paternal Grandmother Heart disease Sibling Breast cancer Neg Hx Colon cancer Neg Hx Uterine cancer Neg Hx Ovarian cancer Neg Hx Objective Physical Exam Constitutional: General: She is not in acute distress. Comments: Presents to clinic with her . Cardiovascular: Comments: DP pulse: 2/4 PT pulse: 0/4 Skin temperature is warm to warm Edema: +2 pitting edema bilaterally, slightly worse on the left leg. Incision noted along the medial left leg consistent with vein harvest from previous open heart bypass. Pulmonary: Effort: Pulmonary effort is normal. No respiratory distress. Musculoskeletal: Cervical back: Neck supple. No rigidity. 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 Skin: Capillary Refill: Capillary refill takes less than 2 seconds. Comments: Three toenails exhibit clinical mycosis with thickened appearance, yellow/brown discoloration, crumbly texture, subungual debris. All 10 toenails are elongated. Hyperkeratotic tissue: Left foot: None Right foot: None Skin is slightly thin Hair growth absent Neurological: Mental Status: She is alert. Comments: Protective sensation intact at 7/10 pedal sites Vibratory sensation diminished at the 1st MTP bilaterally. Psychiatric: Mood and Affect: Mood normal. Behavior: Behavior normal. Assessment/Plan ICD-10-CM 1. Type II or unspecified type diabetes mellitus with neurological manifestations, not stated as uncontrolled(250.60) (CMS/[facility]) E11.49 2. Onychodystrophy L60.3 3. Onychomycosis B35.1 Patient examined and evaluated. Diabetic foot evaluation performed. Patient remains mild risk for pedal complications. She does have a history of ulceration but currently has no preulcerative lesions. Mild deformity and neuropathy also present which places her at mild risk. 10 toenails were debrided in length and thickness today utilizing a nail nipper and electric bur watch parts grinder without incident. I have discussed the importance of daily foot examinations and tight blood sugar control. We will follow up in 3 months for at risk diabetic foot evaluation. This note was created with the assistance of a speech recognition program. While intending to generate a timely document that accurately reflects the content of the visit, no guarantee can be provided that every grammatical or spelling mistake has been or will be identified or corrected. Thank you for your understanding. Ariel Lopez DPM documented in this encounter [facility] 01-09-2024 History of Present illness Narrative Images from the original note were not included. Subjective Patient ID: Isabella Horne is a 73 y.o. female who presents for DM Foot Care (PCP: Dr. Tonie LARA 08/04/23, A1C: 5.1, BS: 80). HPI Established patient returns to clinic for follow up evaluation of ulceration 4th, 5th toes, left foot. Patient has not noticed any drainage. At this point she really has not been treating with any dressings. She has no concerns today. Review of Systems Constitutional: Negative for activity change and appetite change. Respiratory: Negative for chest tightness and shortness of breath. Cardiovascular: Positive for leg swelling. Negative for chest pain. Musculoskeletal: Positive for arthralgias. Skin: Negative for color change and wound. Neurological: Positive for weakness and numbness. Psychiatric/Behavioral: Negative for agitation and behavioral problems. Hematological: Does not bruise/bleed easily. Endocrine: Negative for cold intolerance and heat intolerance. Allergic/Immunologic: Negative for immunocompromised state. 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 CAD (coronary artery disease) ([facility]) 2014 Cerebrovascular accident ([facility]) 2006 CHF (congestive heart failure) ([facility]) Chronic ischemic heart disease ([facility]) COVID 11/17/2020 Positive, unvaccinated Diabetes mellitus ([facility]) 2013 Type 2 without complication Diverticulosis Dizziness Inner ear infection Edema GERD (gastroesophageal reflux disease) 2014 Heart disease Heat exhaustion UTI Hemoptysis 2014 History of being hospitalized 2006 Blood transfusion History of being hospitalized 11/20/2020 ER COVID pneumonia [facility] History of medical problems Sphincter History of tonsillitis Hypertension ([facility]) Hypothyroidism (acquired) ([facility]) Measles Mumps Myocardial infarction ([facility]) 12/03/2006 Osteoporosis ([facility]) Pneumonia 2014 Sebaceous cyst 2011 Thyroid disease ([facility]) Medications Current Outpatient Medications: ammonium lactate (Amlactin) 12 % cream, Apply topically Daily, Disp: 140 g, Rfl: 3 ASPIRIN 81 PO, Take by mouth, Disp: , Rfl: carvedilol (Coreg) 3.125 MG tablet, TAKE 1 TABLET TWICE DAILY, Disp: 200 tablet, Rfl: 1 cinnamon 500 MG capsule, Take 500 mg by mouth in the morning., Disp: , Rfl: famotidine (Pepcid) 20 MG tablet, TAKE 1 TABLET AT BEDTIME, Disp: 100 tablet, Rfl: 1 ferrous sulfate 325 (65 Fe) MG tablet, Take 1 tablet (325 mg) by mouth every 8 (eight) hours, Disp: 270 tablet, Rfl: 3 fexofenadine-pseudoephedrine ER (Ritika-D) 60-120 MG 12 hr tablet, Take 1 tablet by mouth in the morning and 1 tablet in the evening., Disp: , Rfl: fluticasone (Flonase) 50 MCG/ACT nasal spray, Administer 1-2 sprays into each nostril Daily Shake gently. Before first use, prime pump. After use, clean tip and replace cap., Disp: 16 g, Rfl: 2 Jardiance 10 MG, TAKE 1 TABLET EVERY DAY, Disp: 90 tablet, Rfl: 3 levothyroxine (Synthroid, Levoxyl) 88 MCG tablet, TAKE 1 TABLET EVERY MORNING, Disp: 100 tablet, Rfl: 1 magnesium 250 MG tablet, every 12 (twelve) hours., Disp: , Rfl: Multiple Vitamins-Minerals (Thera-M) tablet, Take 1 tablet by mouth in the morning., Disp: , Rfl: omeprazole (PriLOSEC) [address] capsule, TAKE 1 CAPSULE EVERY DAY, Disp: 100 capsule, Rfl: 3 oxybutynin XL (Ditropan-XL) 15 MG 24 hr tablet, TAKE 1 TABLET EVERY MORNING, Disp: 100 tablet, Rfl: 1 pravastatin (Pravachol) 40 MG tablet, TAKE 1 TABLET EVERY DAY, Disp: 100 tablet, Rfl: 1 sacubitril-valsartan (Entresto) 49-51 MG tablet, every 12 (twelve) hours., Disp: , Rfl: Allergies Patient has no known allergies. Past Surgical History Past Surgical History: Procedure Laterality Date ANAL SPHINCTEROTOMY BREAST LUMPECTOMY Right 02/22/2021 CARDIAC CATHETERIZATION CATARACT EXTRACTION Right 2009 CATARACT EXTRACTION Left 2007 CATARACT EXTRACTION Right 2018 COLONOSCOPY 2013 CORONARY ARTERY BYPASS GRAFT 2007 DERMOID CYST EXCISION EXCISION / BIOPSY BREAST / NIPPLE / DUCT 03/15/2021 FRACTURE SURGERY 2019 KNEE ARTHROSCOPY W/ LASER PATELLA FRACTURE SURGERY TRIGGER FINGER RELEASE 2013 ULTRASOUND GUIDED BREAST BIOPSY Right 11/09/2020 WISDOM TOOTH EXTRACTION 04/25/2021 Family History Family History Problem Relation Name Age of Onset Hypertension Father My dad ? Cancer Maternal Grandfather Diabetes Paternal Grandmother Heart disease Sibling Breast cancer Neg Hx Colon cancer Neg Hx Uterine cancer Neg Hx Ovarian cancer Neg Hx Objective Physical Exam Constitutional: General: She is not in acute distress. Comments: Presents to clinic with her . Cardiovascular: Comments: DP pulse: 2/4 PT pulse: 0/4 Skin temperature is warm to warm Edema: +2 pitting edema bilaterally, slightly worse on the left leg. Incision noted along the medial left leg consistent with vein harvest from previous open heart bypass. Pulmonary: Effort: Pulmonary effort is normal. No respiratory distress. Musculoskeletal: Cervical back: Neck supple. No rigidity. 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 Skin: Capillary Refill: Capillary refill takes less than 2 seconds. Comments: Hyperkeratotic tissue kissing lesions on the 4th, 5th toes of the left foot. After debridement of the previously ulcerative areas there were no ulcerations noted. Skin has epithelialized. No drainage. Neurological: Mental Status: She is alert. Comments: Protective sensation intact at 7/10 pedal sites Vibratory sensation diminished at the 1st MTP bilaterally. Psychiatric: Mood and Affect: Mood normal. Behavior: Behavior normal. Assessment/Plan ICD-10-CM 1. Type II or unspecified type diabetes mellitus with neurological manifestations, not stated as uncontrolled(250.60) (CMS/HCC) E11.49 2. Hammer toe of left foot M20.42 3. Contracture of toe of left foot M20.5X2 4. Corns and callosities L84 ammonium lactate (Amlactin) 12 % cream Patient examined and evaluated. After debridement of the previously ulcerative areas the ulcerations were noted to be completely healed. At this point I recommend that she apply ammonium lactate cream to the areas once daily. Prescription was sent to her pharmacy. I also recommend that she continue to use a spacer, Band-Aid or benítez's wool in between the digits to reduce friction and rubbing. Also recommend using an emery board periodically to reduce mild hyperkeratotic buildup. I recommend close follow up with our office for high-risk diabetic foot check to debride nails and calluses before they have a chance to cause problems. Discussed surgical intervention to straighten the toes if she continues to have issues with the preulcerative lesions. For now I will see her back in 3 months as noted. This note was created with the assistance of a speech recognition program. While intending to generate a timely document that accurately reflects the content of the visit, no guarantee can be provided that every grammatical or spelling mistake has been or will be identified or corrected. Thank you for your understanding. Ariel Lopez DPM documented in this encounter [facility] 01-03-2024 History of Present illness Narrative Images from the original note were not included. Isabella Horne 1950 Isabella Horne is a 73 y.o. female presents with chief complaint of 2yr. 10mos. Rt. lumpectomy (W/mamms) HPI: HPI Isabella is 2 yrs 10 mths post Rt lumpectomy, she has no breast issues SUBJECTIVE: MEDICATIONS: ALLERGIES Current Outpatient Medications Medication Instructions ASPIRIN 81 PO Take by mouth carvedilol (COREG) 3.125 mg, Oral, 2 times daily cinnamon 500 mg, Daily famotidine (PEPCID) 20 mg, Oral, Nightly ferrous sulfate 325 mg, Every 8 hours fexofenadine-pseudoephedrine ER (Ritika-D) 60-120 MG 12 hr tablet 1 tablet, 2 times daily fluticasone (Flonase) 50 MCG/ACT nasal spray 1-2 sprays, Each Nostril, Daily, Shake gently. Before first use, prime pump. After use, clean tip and replace cap. 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 CAD (coronary artery disease) ([facility]) 2014 Cerebrovascular accident ([facility]) 2006 [place]estive heart failure[place] Chronic ischemic heart disease ([facility]) COVID 11/17/2020 Positive, unvaccinated Diabetes mellitus ([facility]) 2013 Type 2 without complication Diverticulosis Dizziness Inner ear infection Edema GERD (gastroesophageal reflux disease) 2014 Heart disease Heat exhaustion UTI Hemoptysis 2014 History of being hospitalized 2007 Blood transfusion History of being hospitalized 11/20/2020 ER COVID pneumonia [facility] History of medical problems Sphincter History of tonsillitis Hypertension ([facility]) Hypothyroidism (acquired) [place] Measles Mumps Myocardial infarction [place] 12/03/2006 Osteoporosis [place] Pneumonia 2014 Sebaceous cyst 2011 Thyroid disease ([facility]) Social History Tobacco Use Smoking status: Never Smokeless tobacco: Never Substance Use Topics Alcohol use: Never Comment: Caffeine Intake: 1-2 cups per day coffee, soda/pop Drug use: Never Past Surgical History: Procedure Laterality Date ANAL SPHINCTEROTOMY BREAST LUMPECTOMY Right 02/22/2021 CARDIAC CATHETERIZATION CATARACT EXTRACTION Right 2010 CATARACT EXTRACTION Left 2008 CATARACT EXTRACTION Right 2019 COLONOSCOPY 2013 CORONARY ARTERY BYPASS GRAFT 2007 DERMOID CYST EXCISION EXCISION / BIOPSY BREAST / NIPPLE / DUCT 03/15/2021 FRACTURE SURGERY 2019 KNEE ARTHROSCOPY W/ LASER PATELLA FRACTURE SURGERY TRIGGER FINGER RELEASE 2013 ULTRASOUND GUIDED BREAST BIOPSY Right 11/09/2020 WISDOM TOOTH EXTRACTION 04/25/2021 FAMILY HISTORY Family History Problem Relation Name Age of Onset Hypertension Father My dad ? Cancer Maternal Grandfather Diabetes Paternal Grandmother Heart disease Sibling Breast cancer Neg Hx Colon cancer Neg Hx Uterine cancer Neg Hx Ovarian cancer Neg Hx REVIEW OF SYMPTOMS: Review of Systems Constitutional: Negative for diaphoresis and unexpected weight change. HENT: Positive for hearing loss. Negative for tinnitus and voice change. Respiratory: Negative for shortness of breath. Cardiovascular: Negative for chest pain and palpitations. Musculoskeletal: Negative for arthralgias. Neurological: Negative for dizziness, seizures and headaches. All other systems reviewed and are negative. Hematological: Negative for adenopathy. Does not bruise/bleed easily. OBJECTIVE: Visit Vitals BP 118/64 Ht 5' 4 Wt 155 lb BMI 26.61 kg/m Smoking Status Never BSA 1.78 m Physical Exam Exam conducted with a plant tour guide present. HENT: Head: Normocephalic. Cardiovascular: Rate and Rhythm: Normal rate and regular rhythm. Pulmonary: Effort: Pulmonary effort is normal. Breath sounds: Normal breath sounds. Chest: Comments: Bilateral supraclavicular, infraclavicular, bicipital and axillary lymph nodes were found to be normal. Each breast was examined in the sitting and supine position, there was no evidence of masses, dimpling or discharge in either breast. Right breast scar and axillary scar noted. Abdominal: General: Abdomen is flat. Bowel sounds are normal. Palpations: Abdomen is soft. Skin: General: Skin is warm and dry. Neurological: Mental Status: She is alert. ASSESSMENT AND PLAN: Assessment/Plan Problem List Items Addressed This Visit 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 breast (CMS/HCC) - Primary I reviewed her mamm's done 11/26/23 which were negative. From a breast surgical standpoint, she is doing well. I'll see her in 6 months for recheck documented in this encounter [facility] 12-12-2023 History of Present illness Narrative Images from the original note were not included. Subjective Patient ID: Isabella Horne is a 73 y.o. female who presents for Toe Problem (Established pt presents today for concerns of a small sore on left 5th toe. Noticed this about a week ago. Pt states she put hand cream on the area. PCP: Dr. Tonie LARA 08/04/23, A1C: 5.1, BS: 90). HPI This is an established patient who presents to clinic with concern of sores in between the 4th and 5th toes of the left foot. Patient states that she wore a new pair of shoes and she started noticing pain in between the 4th and 5th toes. Since that time they have noticed callus formation in this area. No treatment tried. She has gone back to her old shoes in the seems to put less pressure over the toes. She denies drainage but has noted swelling in the leg. Review of Systems Constitutional: Negative for activity change and appetite change. Respiratory: Negative for chest tightness and shortness of breath. Cardiovascular: Positive for leg swelling. Negative for chest pain. Musculoskeletal: Positive for arthralgias. Skin: Negative for color change and wound. Neurological: Positive for weakness and numbness. Psychiatric/Behavioral: Negative for agitation and behavioral problems. Hematological: Does not bruise/bleed easily. Endocrine: Negative for cold intolerance and heat intolerance. Allergic/Immunologic: Negative for immunocompromised state. 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 CAD (coronary artery disease) ([facility]) 2013 Cerebrovascular accident ([facility]) 2006 CHF (congestive heart failure) ([facility]) Chronic ischemic heart disease ([facility]) COVID 11/17/2020 Positive, unvaccinated Diabetes mellitus ([facility]) 2013 Type 2 without complication Diverticulosis Dizziness Inner ear infection Edema GERD (gastroesophageal reflux disease) 2014 Heart disease Heat exhaustion UTI Hemoptysis 2014 History of being hospitalized 2007 Blood transfusion History of being hospitalized 11/20/2020 ER COVID pneumonia [facility] History of medical problems Sphincter History of tonsillitis Hypertension ([facility]) Hypothyroidism (acquired) ([facility]) Measles Mumps Myocardial infarction ([facility]) 12/03/2006 Osteoporosis ([facility]) Pneumonia 2014 Sebaceous cyst 2011 Thyroid disease ([facility]) Medications Current Outpatient Medications: ASPIRIN 81 PO, Take by mouth, Disp: , Rfl: carvedilol (Coreg) 3.125 MG tablet, TAKE 1 TABLET TWICE DAILY, Disp: 200 tablet, Rfl: 3 cinnamon 500 MG capsule, Take 500 mg by mouth in the morning., Disp: , Rfl: famotidine (Pepcid) 20 MG tablet, Take 1 tablet (20 mg) by mouth at bedtime, Disp: 100 tablet, Rfl: 2 ferrous sulfate 325 (65 Fe) MG tablet, Take 325 mg by mouth every 8 (eight) hours., Disp: , Rfl: fexofenadine-pseudoephedrine ER (Ritika-D) 60-120 MG 12 hr tablet, Take 1 tablet by mouth in the morning and 1 tablet in the evening., Disp: , Rfl: Jardiance 10 MG, TAKE 1 TABLET EVERY DAY, Disp: 90 tablet, Rfl: 3 levothyroxine (Synthroid, Levoxyl) 88 MCG tablet, Take 1 tablet (88 mcg) by mouth in the morning., Disp: 100 tablet, Rfl: 3 magnesium 250 MG tablet, every 12 (twelve) hours., Disp: , Rfl: Multiple Vitamins-Minerals (Thera-M) tablet, Take 1 tablet by mouth in the morning., Disp: , Rfl: omeprazole (PriLOSEC) [address] capsule, TAKE 1 CAPSULE EVERY DAY, Disp: 100 capsule, Rfl: 3 oxybutynin XL (Ditropan-XL) 15 MG 24 hr tablet, Take 1 tablet (15 mg) by mouth in the morning., Disp: 100 tablet, Rfl: 3 pravastatin (Pravachol) 40 MG tablet, TAKE 1 TABLET EVERY DAY, Disp: 100 tablet, Rfl: 3 sacubitril-valsartan (Entresto) 49-51 MG tablet, every 12 (twelve) hours., Disp: , Rfl: fluticasone (Flonase) 50 MCG/ACT nasal spray, Administer 1-2 sprays into each nostril Daily Shake gently. Before first use, prime pump. After use, clean tip and replace cap., Disp: 16 g, Rfl: 2 Allergies Patient has no known allergies. Past Surgical History Past Surgical History: Procedure Laterality Date ANAL SPHINCTEROTOMY BREAST LUMPECTOMY Right 02/22/2021 CARDIAC CATHETERIZATION CATARACT EXTRACTION Right 2009 CATARACT EXTRACTION Left 2007 CATARACT EXTRACTION Right 2018 COLONOSCOPY 2013 CORONARY ARTERY BYPASS GRAFT 2007 DERMOID CYST EXCISION EXCISION / BIOPSY BREAST / NIPPLE / DUCT 03/15/2021 FRACTURE SURGERY 2019 KNEE ARTHROSCOPY W/ LASER PATELLA FRACTURE SURGERY TRIGGER FINGER RELEASE 2013 ULTRASOUND GUIDED BREAST BIOPSY Right 11/09/2020 WISDOM TOOTH EXTRACTION 04/25/2021 Family History Family History Problem Relation Name Age of Onset Hypertension Father My dad ? Cancer Maternal Grandfather Diabetes Paternal Grandmother Heart disease Sibling Breast cancer Neg Hx Colon cancer Neg Hx Uterine cancer Neg Hx Ovarian cancer Neg Hx Objective Physical Exam Constitutional: General: She is not in acute distress. Comments: Presents to clinic with her . Cardiovascular: Comments: DP pulse: 2/4 PT pulse: 0/4 Skin temperature is warm to warm Edema: +2 pitting edema bilaterally, slightly worse on the left leg. Incision noted along the medial left leg consistent with vein harvest from previous open heart bypass. Pulmonary: Effort: Pulmonary effort is normal. No respiratory distress. Musculoskeletal: Cervical back: Neck supple. No rigidity. 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 Skin: Capillary Refill: Capillary refill takes less than 2 seconds. Comments: Hyperkeratotic tissue kissing lesions on the 4th, 5th toes of the left foot. After debridement ulcerations as noted below. Ulcer #1 Ulcer location: Lateral 4th toe, left foot Ulcer size: 12/12/2023: 0.2 x 0.3 x 0.1 cm Other characteristics: Mild periwound hyperkeratosis. No cellulitis or purulence. No tunneling or undermining. Scant serous discharge. Ulcer #2 Ulcer location: Medial 5th toe, left foot Ulcer size: 12/12/2023: 0.2 x 0.2 x 0.1 cm Other characteristics: Mild periwound hyperkeratosis. No cellulitis or purulence. Mild serous discharge. No tunneling or undermining. Neurological: Mental Status: She is alert. Comments: Protective sensation intact at 7/10 pedal sites Vibratory sensation diminished at the 1st MTP bilaterally. Psychiatric: Mood and Affect: Mood normal. Behavior: Behavior normal. Assessment/Plan ICD-10-CM 1. Type II or unspecified type diabetes mellitus with neurological manifestations, not stated as uncontrolled(250.60) ([facility]) E11.49 2. Ulcer of left foot with fat layer exposed ([facility]) L97.522 3. Hammer toe of left foot M20.42 4. Contracture of toe of left foot M20.5X2 5. Peripheral vascular disease ([facility]) I73.9 Patient examined and evaluated. Noted to have hyperkeratotic lesions between the 4th and 5th toesOf the left foot. Discussed the cause of this is the adductovarus rotation of the 5th toes combined with shear forces from shoe gear. Recommend wearing wide shoes as much as possible. She has had a previous stroke and has some issue with stability and so we will treat her in her current shoes. Consider transitioning to an open toed surgical shoe if she does not show improvement in a month. Excisional debridement was performed on ulceration # 1 and 2 utilizing a sterile #15 blade to excise all nonviable and hyperkeratotic tissue down to the level of and including subcutaneous tissue. Post-debridement measurements were recorded. The post debridement appearance of the wounds showed an improved granular tissue with decreased bioburden and fibrotic slough. Wounds were copiously flushed with saline. Hemostasis achieved with direct pressure. Ulcers were dressed with Amerigel dressing. Offloading with Band-Aids. Additional padding in between the 4th and 5th toes would be too bulky at this point. We will rely on the Band-Aids for offloading to reduce shear forces. Follow up 1 month. If she is still having significant issues in the wounds are not healing consider transitioning into a surgical shoe, radiographs. Consider noninvasive arterial testing. Patient did have edema worse on the left lower extremity likely as a result from vein harvest from bypass. Discussed and recommended light compression socks. Patient fitted for and dispensed compression socks today. She stated that they felt comfortable and they were easy for her to Don and doff. This note was created with the assistance of a speech recognition program. While intending to generate a timely document that accurately reflects the content of the visit, no guarantee can be provided that every grammatical or spelling mistake has been or will be identified or corrected. Thank you for your understanding. Ariel Lopez DPM documented in this encounter [facility] 11-18-2020 Note PROCEDURE: XR SHOULD ER RT [...] by: JHONNY BEGUM Date: 2020-11-18 14:[address] [facility] Evaluation note Diagnosis Onset Date Abnormal ECG acute Coronary artery disease acut e Hx of CABG acute Ischemic cardiomyopathy acut e Adenoid cystic carcinoma of breast [facility] Work Phone: Evaluation noteNo assessment information available [facility] Work Phone: Evaluation note* Diagnosis Diabetic autonomic neuropathy associated with type 2 diabetes mellitus (CMS/HCC)- Primary Type II or unspecified type diabetes mellitus with neurological manifestations, not stated as uncontrolled Acquired hypothyroidism (CMS/HCC) Unspecified hypothyroidism Diabetic nephropathy associated with type 2 diabetes mellitus (HCC) (CMS/HCC) Chronic systolic heart failure (CMS/HCC) Chronic systolic heart failure Type 2 diabetes mellitus with peripheral vascular disease (CMS/HCC) Routine general medical examination at health care facility- Primary Routine general medical examination at a health care facility Abnormal glucose tolerance test Impaired glucose tolerance test Benign essential hypertension (CMS/HCC) Essential hypertension, benign Medicare annual wellness visit, subsequent Acquired hypothyroidism (CMS/HCC) Unspecified hypothyroidism Type 2 diabetes mellitus with peripheral vascular disease (CMS/HCC) Hypercholesterolemia (CMS/HCC) Pure hypercholesterolemia Hyperlipidemia, unspecified hyperlipidemia type (CMS/HCC) Spinal stenosis of lumbar region with neurogenic claudication Type II or unspecified type diabetes mellitus with neurological manifestations, not stated as uncontrolled(250.60) (CMS/HCC)- Primary Type II or unspecified type diabetes mellitus with neurological manifestations, not stated as uncontrolled Ulcer of left foot with fat layer exposed (CMS/HCC) Hammer toe of left foot Contracture of toe of left foot Peripheral vascular disease (CMS/HCC) Unspecified peripheral vascular disease [facility] Diagnosis Diabetic autonomic neuropathy associated with type 2 diabetes mellitus (CMS/HCC)- Primary Type II or unspecified type diabetes mellitus with neurological manifestations, not stated as uncontrolled Acquired hypothyroidism (CMS/HCC) Unspecified hypothyroidism Diabetic nephropathy associated with type 2 diabetes mellitus (HCC) (CMS/HCC) Chronic systolic heart failure (CMS/HCC) Chronic systolic heart failure Type 2 diabetes mellitus with peripheral vascular disease (CMS/HCC) Routine general medical examination at health care facility- Primary Routine general medical examination at a health care facility Abnormal glucose tolerance test Impaired glucose tolerance test Benign essential hypertension (CMS/HCC) Essential hypertension, benign Medicare annual wellness visit, subsequent Acquired hypothyroidism (CMS/HCC) Unspecified hypothyroidism Type 2 diabetes mellitus with peripheral vascular disease (CMS/HCC) Hypercholesterolemia (CMS/HCC) Pure hypercholesterolemia Hyperlipidemia, unspecified hyperlipidemia type (CMS/HCC) Spinal stenosis of lumbar region with neurogenic claudication Malignant neoplasm of central portion of right breast in female, estrogen receptor negative ([facility]/HCC)- Primary [facility] in this encounter [facility]* Diagnosis Diabetic autonomic neuropathy associated with type 2 diabetes mellitus (CMS/HCC)- Primary Type II or unspecified type diabetes mellitus with neurological manifestations, not stated as uncontrolled Acquired hypothyroidism ([facility]/HCC) Unspecified hypothyroidism Diabetic nephropathy associated with type 2 diabetes mellitus (HCC) ([facility]) Chronic systolic heart failure ([facility]/HCC) Chronic systolic heart failure Type 2 diabetes mellitus with peripheral vascular disease ([facility]) Routine general medical examination at health care facility- Primary Routine general medical examination at a health care facility Abnormal glucose tolerance test Impaired glucose tolerance test Benign essential hypertension ([facility]) Essential hypertension, benign Medicare annual wellness visit, subsequent Acquired hypothyroidism ([facility]) Unspecified hypothyroidism Type 2 diabetes mellitus with peripheral vascular disease ([facility]) Hypercholesterolemia ([facility]) Pure hypercholesterolemia Hyperlipidemia, unspecified hyperlipidemia type ([facility]) Spinal stenosis of lumbar region with neurogenic claudication Type II or unspecified type diabetes mellitus with neurological manifestations, not stated as uncontrolled(250.60) ([facility])- Primary Type II or unspecified type diabetes mellitus with neurological manifestations, not stated as uncontrolled Hammer toe of left foot Contracture of toe of left foot Corns and callosities documented in this encounter [facility]* Diagnosis Diabetic autonomic neuropathy associated with type 2 diabetes mellitus ([facility]/HCC)- Primary Type II or unspecified type diabetes mellitus with neurological manifestations, not stated as uncontrolled Acquired hypothyroidism ([facility]) Unspecified hypothyroidism Diabetic nephropathy associated with type 2 diabetes mellitus (HCC) ([facility]) Chronic systolic heart failure ([facility]) Chronic systolic heart failure Type 2 diabetes mellitus with peripheral vascular disease ([facility]) Routine general medical examination at health care facility- Primary Routine general medical examination at a health care facility Abnormal glucose tolerance test Impaired glucose tolerance test Benign essential hypertension ([facility]) Essential hypertension, benign Medicare annual wellness visit, subsequent Acquired hypothyroidism ([facility]/HCC) Unspecified hypothyroidism Type 2 diabetes mellitus with peripheral vascular disease ([facility]/HCC) Hypercholesterolemia ([facility]) Pure hypercholesterolemia Hyperlipidemia, unspecified hyperlipidemia type ([facility]) Spinal stenosis of lumbar region with neurogenic claudication Type II or unspecified type diabetes mellitus with neurological manifestations, not stated as uncontrolled(250.60) ([facility])- Primary Type II or unspecified type diabetes mellitus with neurological manifestations, not stated as uncontrolled Onychodystrophy Other specified disease of nail Onychomycosis Dermatophytosis of nail documented in this encounter [facility] HealthcareEvaluation note* Diagnosis Diabetic autonomic neuropathy associated with type 2 diabetes mellitus (CMS/HCC)- Primary Type II or unspecified type diabetes mellitus with neurological manifestations, not stated as uncontrolled Acquired hypothyroidism (CMS/HCC) Unspecified hypothyroidism Diabetic nephropathy associated with type 2 diabetes mellitus (HCC) (CMS/HCC) Chronic systolic heart failure (CMS/HCC) Chronic systolic heart failure Type 2 diabetes mellitus with peripheral vascular disease (CMS/HCC) Routine general medical examination at health care facility- Primary Routine general medical examination at a health care facility Abnormal glucose tolerance test Impaired glucose tolerance test Benign essential hypertension ([facility]/HCC) Essential hypertension, benign Medicare annual wellness visit, subsequent Acquired hypothyroidism (CMS/HCC) Unspecified hypothyroidism Type 2 diabetes mellitus with peripheral vascular disease (CMS/HCC) Hypercholesterolemia (CMS/HCC) Pure hypercholesterolemia Hyperlipidemia, unspecified hyperlipidemia type (CMS/HCC) Spinal stenosis of lumbar region with neurogenic claudication Asymmetrical sensorineural hearing loss- Primary Sensorineural hearing loss, asymmetrical Impaired auditory discrimination, right documented in this encounter [facility] HealthcareEvaluation note* Diagnosis Diabetic autonomic neuropathy associated with type 2 diabetes mellitus (CMS/HCC)- Primary Type II or unspecified type diabetes mellitus with neurological manifestations, not stated as uncontrolled Acquired hypothyroidism (CMS/HCC) Unspecified hypothyroidism Diabetic nephropathy associated with type 2 diabetes mellitus (HCC) (CMS/HCC) Chronic systolic heart failure (CMS/HCC) Chronic systolic heart failure Type 2 diabetes mellitus with peripheral vascular disease (CMS/HCC) Routine general medical examination at health care facility- Primary Routine general medical examination at a health care facility Abnormal glucose tolerance test Impaired glucose tolerance test Benign essential hypertension (CMS/HCC) Essential hypertension, benign Medicare annual wellness visit, subsequent Acquired hypothyroidism (CMS/HCC) Unspecified hypothyroidism Type 2 diabetes mellitus with peripheral vascular disease (CMS/HCC) Hypercholesterolemia ([facility]/HCC) Pure hypercholesterolemia Hyperlipidemia, unspecified hyperlipidemia type ([facility]/HCC) Spinal stenosis of lumbar region with neurogenic claudication Asymmetric SNHL (sensorineural hearing loss) Sensorineural hearing loss, asymmetrical documented in this encounter [facility] Work Phone: Summary Purpose Family History No Family History Records Found Relationship Condition Age at Onset Recorded Date/T noe father Hypertension Unknown family member Heart disease Unknown grandparent Diabetes mellitus Unknown grandparent Malignant neoplasm Unknown Relationship Condition Age at Onset Recorded Date/T noe father Hypertension Unknown family member Heart disease Unknown grandparent Diabetes mellitus Unknown grandparent Malignant neoplasm Unknown brother Diabetes mellitus Unknown Heart disease Unknown Advance Directives No Advanced Directives Records [...] Adenoid cystic carcinoma of breast Chief Complaint Z85.3 Additional Source Comments INFORMATION SOURCE (unrecogn ized section and content) DATE CREATED AUTHOR 07/31/2017 [facility] DATE CREATED AUTHOR AUTHOR'S ORGANIZ ATION 01/23/2020 [facility] DATE CREATED AUTHOR AUTHOR'S ORGANIZ ATION 04/06/2021 [facility] dical Specialist DATE CREATED AUTHOR AUTHOR'S ORGANIZ ATION 11/12/2021 [facility] pital DATE CREATED AUTHOR AUTHOR'S ORGANIZ ATION 11/27/2023 [facility] DATE CREATED AUTHOR AUTHOR'S ORGANIZ ATION 06/18/2024 [facility] dical Specialists EPIC DATE CREATED AUTHOR AUTHOR'S ORGANIZ ATION 06/26/2024 [facility] Care Teams (unrecognized sec tion and content) Team Status: Inactive Member Role Status Dates Hong Schilling MD Primary Care Provider, Attending Pro vider Active Team Status: Inactive Member Role Status Dates Hong Schilling MD Primary Care Provider Active Bill Trammell DO Attending Provider Active Team Status: Active Member Role Status Dates Hong Schilling MD Primary Care Provider Active Wai Duvall II, Attending Provider Active Team Status: Active Member Role Status Dates Hong Schilling MD Primary Care Provider Active Team Status: Inactive Member Role Status Dates Hong Schilling MD Primary Care Provider Active S tart: November 26, 2023 End: November 26, 2023 Bill Trammell DO Attending Provider Active Start: November 26, 2023 End: November 26, 2023 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 Start Date End Date Hong Schilling MD [address] [place] [address] PCP - General Family Medicine 07/25/22 Hong Schilling MD [address] [place] [address] PCP - ACO Reach 04/13/23 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 Start Date End Date Hong Schilling MD [address] [place] [address] PCP - General Family Medicine 07/25/22 Hong Schilling MD [address] [place] [address] PCP - ACO Reach 04/13/23 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 Start Date End Date Hong Schilling MD [address] [place] [address] PCP - General Family Medicine 07/25/22 Hong Schilling MD [address] [place] [address] PCP - ACO Reach 04/13/23 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 Start Date End Date Hong Schilling MD [address] [place] [address] PCP - General Family Medicine 07/25/22 Hong Schilling MD [address] [place] [address] PCP - ACO Reach 04/13/23 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 Start Date End Date Hong Schilling MD [address] [place] [address] PCP - General Family Medicine 07/25/22 Hong Schilling MD [address] [place] [address] PCP - ACO Reach 04/13/23 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 Start Date End Date Hong Schilling MD [address] [place] [address] PCP - General Family Medicine 07/25/22 Hong Schilling MD [address] [place] [address] PCP - ACO Reach 04/13/23 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 Start Date End Date Hong Schilling MD [address] [place] [address] PCP - General Family Medicine 07/25/22 Hong Schilling MD [address] [place] [address] PCP - ACO Reach 04/13/23 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 Noticed this about a week ago. Pt states she put hand cream on the area. PCP: Dr. Tonie LARA 08/04/23, A1C: 5.1, BS: 90 Reason Comments 2yr. 10mos. Rt. lumpectomy W/mamms Reason Comments DM Foot Care PCP: Dr. Tonie LARA 07/14 04/07, A1C: 5.1, BS: 80 Reason Comments DM Foot Care Pt is here today wit h her spouse requesting diabetic foot care BS: 90 A1c: 5.7LV Dr. Schilling 07-17-2023 Reason Comments Hearing Loss Audio 06/13/24 Specialty Diagnoses / Procedures Referred By Contac t Referred To Contact Otolaryngology Diagnoses Hearing loss associated with syndrome of both ears Procedures ID OFFICE/OUTPATIENT NEW HIGH MDM 60 MINUTES Hong Schilling MD [address] [facility] [address] [place] [address] Phone: tel: fax: Jamila Carcamo MD [address] [facility] [address] [place] [address] Phone: tel: fax: Referral ID Status Reason Start Date Expiration Date V isits Requested Visits Authorized [id number] Closed Specialty Services Required 04/21/2024 10/18/2024 1 1 FOR RECORDS PERTAINING TO PATIENTS WHO ARE [...] BE BASED ON THE PRIMARY CLINICAL RECORDS. [employer] provides no warranty or guarantee of the accuracy or completeness of information in this document.
[2024-07-01] MEDS: REGADENOSON 0.4 MG/5 ML SYRINGE IV (10:06)
--- NOTE | 2024-07-01 10:06 | PC.NURSE ---
Nursing Note Cardiac Stress Test Reviewed: Medication, allergies and patient history reviewed. Stress Test: [x ] Patient tolerated stress test well. [ ] Patient unable to tolerate walking on treadmill. Switched to Lexiscan stress test. [x ] No chest pain noted per patient [ ] Chest pain that resolved prior to leaving stress lab. [ x] No dyspnea noted. [ ] Dyspnea that resolved prior to leaving stress lab. [ x] Patient left stress lab asymptomatic and hemodynamically stable. [ ] Patient taken to the Emergency Room due to non-resolving symptoms following stress test. [ ] Patient achieved target heart rate. [ ] Patient unable to achieve target heart rate. [ ] Aminophylline administered as reversal agent to Lexiscan (Regadenoson). [ ] Nitro administered. Nursing Comments:Pt had Lexiscan test done. No symptoms reported pt felt fine. AMbulated to cafeteria for breakfast prior to second set of images.
--- NOTE | 2024-07-03 12:24 | PM.STRESS ---
Stress Test Stress Test Allergies Allergy/AdvReac Type Severity Reaction Status Date / Time No Known Drug Allergies Allergy Verified 12/14/22 14:05 Requesting physician: Germania Helton Procedure: Lexiscan pharmacological stress test General Information: Reason for Stress Test: [Abnormal echocardiogram, heart failure with reduced ejection fraction] Cardiac History and Risk Factors: [Coronary artery disease, history of myocardial infarction, dyslipidemia] Resting 12 - Lead Electrocardiogram: Sinus rhythm with premature atrial complexes Rightward axis Anterior infarct age undetermined Abnormal EKG Stress Test: Protocol: [Lexiscan] Exercise Capacity: [N/A] Blood Pressure Response: [N/A] Rhythm: [Premature ventricular contractions] ST - Response: [No significant ST-T wave abnormalities] Patient Response: [No symptoms reported] Interpretation: 1. No ischemic EKG changes on Lexiscan pharmacological stress test 2. Infrequent premature ventricular contractions noted 3. Nuclear images are to be read, interpreted, and reported separately
== END 2024-07-01 08:28 | disposition home or self-care (01) ==
LOC: NM 08:27
PROVIDERS: PCP Family Medicine; Visit Provider Internal Medicine Interventional Cardiology
DX: R93.1 Abnormal findings on diagnostic imaging of heart and coronary circulation (principal); I50.22 Chronic systolic (congestive) heart failure
CPT/HCPCS: 78452; 93017; A9500; J2785

== ENCOUNTER 2024-10-31 11:57 | Emergency (ER) | payer MEDICARE, OTHER, SELFPAY ==
--- OUTSIDE RECORDS SUMMARY | 2024-10-22 13:15 | XMS_ITS | Encounter Summary ---
Author Organization [facility] Address [address] [place] [address] Care Team Providers Care Filling Separator Name Role Phone Oz Savage MD Primary Care Provider [phone] Oz Savage MD Unavailable Reason for Visit * Reason Comments DM Foot Care Pt is here today wit h her spouse for diaebtic foot careBS: 78 A1C: 5.6Lv Dr. Savage 10-06-2024 Encounter Details Date Type Department Care Team (Latest Contact Info) Description 10/22/2024 1:15 PM EDT Procedure Visit [facility] [address] [place] [address] Ariel Lopez, DPM [address] [place] [address] Onychodystrophy (Primary Dx); Onychomycosis; Type II or unspecified type diabetes mellitus with neurological manifestations, not stated as uncontrolled(250.60) ([facility]) Social History Tobacco Use Types Packs/Day Years Used Date Smoking Tobacco: Never Smokeless Tobacco: Never Alcohol Use Standard Drinks/Week Comments Never 0 (1 standard drink = 0.6 oz pure alcohol) Caffeine Intake: 1-2 cups per day coffee, soda/pop PHQ-2 Answer Date Recorded Patient Health Questionnaire-2 Score 0 10/06/2024 Comments Unknown Sex and Gender Information Value Date Recorded Sex Assigned at Not on file Legal Sex Female 7:15 PM EDT Gender Identity Not on file Sexual Orientation Not on file Occupation Industry Job Start Date Job End Date Not on file Not on file Not on file Not on file documented as of this encounter Last Filed Vital Signs Vital Sign Reading Time Taken Comments Blood Pressure - - Pulse - - Temperature - - Respiratory Rate - - Oxygen Saturation - - Inhaled Oxygen Concentration - - Weight 77.1 kg (170 lb) 10/22/2024 1:36 PM EDT Height 162.6 cm (5' 4 ) 10/22/2024 1:36 PM EDT Body Mass Index 29.18 10/22/2024 1:36 PM EDT documented in this encounter Progress Notes * Ariel Lopez, LALIT - 10/22/2024 1:15 PM EDT Images from the original note were not included. Subjective Patient ID: Rosalie Mckeon is a 74 y.o. female who presents for DM Foot Care (Pt is here today with her spouse for diaebtic foot care/BS: 79 A1C: 5.6/Lv Dr. Savage 10-06-2024). HPI Established patient returns to clinic for diabetic foot evaluation. 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 CAD (coronary artery disease) 2014 Cerebrovascular accident ([facility]) 2006 CHF (congestive heart failure) ([facility]) Chronic ischemic heart disease COVID 11/17/2020 Positive, unvaccinated Diabetes mellitus ([facility]) 2012 Type 2 without complication Diverticulosis Dizziness Inner ear infection Edema GERD (gastroesophageal reflux disease) 2014 Heart disease Heat exhaustion UTI Hemoptysis 2014 History of being hospitalized 2006 Blood transfusion History of being hospitalized 11/20/2020 ER COVID pneumonia [facility] History of medical problems Sphincter History of tonsillitis Hypertension Hypothyroidism (acquired) Measles Mumps Myocardial infarction (HCC) 12/03/2006 Osteoporosis Pneumonia 2014 Sebaceous cyst 2011 Thyroid disease Medications Current Outpatient Medications: ammonium lactate (Amlactin) 12 % cream, Apply topically Daily, Disp: 140 g, Rfl: 3 ASPIRIN 81 PO, Take by mouth, Disp: , Rfl: carvedilol (Coreg) 3.125 MG tablet, TAKE 1 TABLET IN THE MORNING AND TAKE 1 TABLET BEFORE BEDTIME, Disp: 180 tablet, Rfl: 3 cinnamon 500 MG capsule, Take 500 mg by mouth Daily, Disp: , Rfl: famotidine (Pepcid) 20 MG tablet, TAKE 1 TABLET AT BEDTIME, Disp: 100 tablet, Rfl: 3 ferrous sulfate 325 (65 Fe) MG tablet, Take 1 tablet (325 mg) by mouth every 8 (eight) hours, Disp:270 tablet, Rfl: 3 fexofenadine-pseudoephedrine ER (Ritika-D) 60-120 [...] tablet, TAKE 1 TABLET EVERY MORNING, Disp: 90 tablet, Rfl: 3 magnesium 250 MG tablet, every 12 (twelve) hours, Disp: , Rfl: Multiple Vitamins-Minerals (Thera-M) tablet, Take 1 tablet by mouth in the morning., Disp: , Rfl: omeprazole (PriLOSEC) [address] capsule, TAKE 1 CAPSULE EVERY DAY (NEED APPOINTMENT), Disp: 100 capsule, Rfl: 3 oxybutynin XL (Ditropan-XL) 15 MG 24 hr tablet, TAKE 1 TABLET EVERY MORNING, Disp: 90 tablet, Rfl: 3 pravastatin (Pravachol) 40 MG tablet, TAKE 1 TABLET EVERY DAY, Disp: 90 tablet, Rfl: 3 sacubitril-valsartan (Entresto) 49-51 MG tablet, every 12 (twelve) hours, Disp: , Rfl: Allergies Patient has no [...] 4th, 5th toes of the left foot. Multiple hammertoe contractures bilaterally. Ankle dorsiflexion 0 degrees with the knee extended, flexed bilaterally. Skin: Capillary Refill: Capillary refill takes less than 2 seconds. Comments: Three toenails exhibit clinical mycosis with thickened appearance, yellow/brown discoloration, crumbly texture, subungual debris. All 10 toenails are elongated. Hyperkeratotic tissue: Left foot: None Right foot: Very minimal plantar 1st MTP Skin is slightly thin Hair growth absent Neurological: Mental Status: She is alert. Comments: Protective sensation intact at 7/10 pedal sites Vibratory sensation diminished at the 1st MTP bilaterally. Psychiatric: Mood and Affect: Mood normal. Behavior: Behavior normal. Assessment/Plan ICD-10-CM 1. Onychodystrophy L60.3 2. Onychomycosis B35.1 3. 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 10 toenails were debrided in length and thickness today utilizing anail nipper and electric bur tool grinder set up operator gear without incident. I have discussed the importance [...] Ariel Lopez DPM documented in this encounter Plan of Treatment Upcoming Encounters Date Type Department Care Team (Late st Contact Info) Description 12/16/2024 4:15 PM EST Office Visit [facility] [address] [facility] [address] [place] [phone] Dakota Forman MD [address] [facility] [address] [place], [place] [id number] 01/05/2025 1:15 PM EST Office Visit [facility] [address] [facility] [address] [place] [address] Sandoval Robbins DO [address] [facility] [address] [place] [address] 01/28/2025 2:15 PM EST Procedure Visit [facility] [address] [place] [address] Ariel Lopez DPM [address] [place] [address] 04/01/2025 11:00 AM EST Office [facility] [address] [facility] [address] [place] [address] documented as of this encounter Visit Diagnoses Diagnosis Onychodystrophy- Primary Other specified disease of nail Onychomycosis Dermatophytosis of nail Type II or unspecified type diabetes mellitus with neurological manifestations, not stated as 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
--- OUTSIDE RECORDS SUMMARY | 2024-10-31 12:07 | XMS_ITS | Encounter Summary ---
Author Organization [facility] Address [address] [place] [address] Care Team Providers Care Sales Account Director Name Role Phone Oz Savage MD Primary Care Provider [phone] Oz Savage MD Unavailable Litzy Montoya RN Unavailable Encounter Details Date Type Department Care Team (Late st Contact Info) Description 02/08/2023 Abstract [facility] [address] [facility] [address] [place] [id number] Oz Savage MD [address] [facility] [address] [place] [address] Social History Tobacco Use Types Packs/Day Years Used Date Smoking Tobacco: Never Smokeless Tobacco: Never Alcohol Use Standard Drinks/Week Comments Never 0 (1 standard drink = 0.6 oz pure alcohol) Caffeine Intake: 1-2 cups per day coffee, soda/pop Comments Unknown Sex and Gender Information Value Date Recorded Sex Assigned at Not on file Legal Sex Female 7:15 PM EDT Gender Identity Not on file Sexual Orientation Not on file Occupation Industry Job Start Date Job End Date Not on file Not on file Not on file Not on file documented as of this encounter Plan of Treatment Upcoming Encounters Date Type Department Care Team (Late st Contact Info) Description 12/16/2024 4:15 PM EST Office Visit [facility] [address] [place] [address] Dakota Forman MD [address] [facility] [address] [place] [address] 01/05/2025 1:15 PM EST Office Visit [facility] [address] [facility] [address] [place] [address] Sandoval Robbins, [address] [facility] [address] [place] [address] 01/28/2025 2:15 PM EST Procedure Visit [facility] [address] [place] [phone] Ariel Lopez, [address] [address] [place] [address] 04/01/2025 11:00 AM EST Office Visit [facility] [address] [facility] [address] [place] [phone] documented as of this encounter Visit Diagnoses Not on filedocumented in this encounter Care Teams Sales Account Director Relationship Specialty Start Date End Date Oz Savage MD [address] [facility] [address] [place] [address] PCP - General Family Medicine 07/25/22 Oz Savage MD [address] [facility] [address] [place] [address] PCP - ACO Reach 04/13/23 Litzy Montoya, RN [address] [place] [facility] [place] [address] Registered Nurse Family Medicine 10/28/24 10/30/24 documented as of this encounter
--- OUTSIDE RECORDS SUMMARY | 2024-10-31 12:07 | XMS_ITS | Clinical Summary ---
Author Organization [facility] Address [address] [place] [address] Care Team Providers Care Cut Off Sawyer Name Role Phone Oz Savage MD Primary Care Provider [phone] Oz Savage MD Unavailable Allergies No known active allergies Medications magnesium 250 MG tablet every 12 (twelve) hours Active cinnamon 500 MG capsule Take 500 mg by mouth Daily Active fexofenadine-pseud oephedrine ER (Ritika-D) 60-120 MG 12 hr tablet Take 1 tablet by mouth in the morning and 1 tablet in the evening. Active sacubitril-valsart an (Entresto) 49-51 MG tablet every 12 (twelve) hours Active Multiple Vitamins-Minerals (Thera-M) tablet Take 1 tablet by mouth in the morning. Active fluticasone (Flonase) 50 MCG/ACT nasal sprayIndications:S easonal allergic rhinitis due to pollen Administer 1-2 sprays into each nostril Daily Shake gently. Before first use, prime pump. After use, clean tip and replace cap. 16 g 2 05/07/19 24 Active ASPIRIN 81 PO Take by mouth Ac tive ferrous sulfate 325 (65 Fe) MG tabletIndications: Anemia, unspecified type Take 1 tablet (325 mg) by mouth every 8 (eight) hours 270 tablet 3 01/08/20 24 Active ammonium lactate (Amlactin) 12 % creamIndications:C orns and callosities Apply topically Daily 140 g 3 01/09/20 24 025 Active Jardiance 10 MGIndications:Type 2 diabetes mellitus with peripheral vascular disease (HCC) TAKE 1 TABLET EVERY DAY 90 tablet 3 05/06/19 25 Active famotidine (Pepcid) 20 MG tabletIndications: LPRD (laryngopharyngeal reflux disease) TAKE 1 TABLET AT BEDTIME 100 tablet 3 07/24/19 25 Active omeprazole (PriLOSEC) [address] capsuleIndications :Gastroesophageal reflux disease with esophagitis, unspecified whether hemorrhage TAKE 1 CAPSULE EVERY DAY (NEED APPOINTMENT) 100 capsule 3 07/24/19 25 Active levothyroxine (Synthroid, Levoxyl) 88 MCG tabletIndications: Acquired hypothyroidism TAKE 1 TABLET EVERY MORNING 90 tablet 3 08/19/19 25 Active carvedilol (Coreg) 3.125 MG tablet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 TAKE 1 TABLET IN THE MORNING AND TAKE 1 TABLET BEFORE BEDTIME 180 tablet 3 08/19/19 25 Active pravastatin (Pravachol) 40 MG tabletIndications: Hypercholesterolem ia TAKE 1 TABLET EVERY DAY 90 tablet 3 08/19/19 25 Active oxybutynin XL (Ditropan-XL) 15 MG 24 hr tabletIndications: OAB (overactive bladder) TAKE 1 TABLET EVERY MORNING 90 tablet 3 08/19/19 25 Active cephalexin (Keflex) 500 MG capsuleIndications :Infection of index finger Take 1 capsule (500 mg) by mouth in the morning and 1 capsule (500 mg) in the evening and 1 capsule (500 mg) before bedtime. Do all this for 10 days. 30 capsule 09/24/19 25 025 Discontinu ed(Other) sulfamethoxazole-t rimethoprim (Bactrim DS) 800-160 MG per tabletIndications: Infection of index finger,Swelling of index finger Take 1 tablet by mouth in the morning and 1 tablet before bedtime. Do all this for 10 days. 20 tablet 10/07/19 25 025 Active Problems Problem Noted Date Diagnosed Date Swelling of index finger 10/06/2024 Assessment & Plan (10/06/2024 3:15 PM EDT): Still with swelling Finished atibiotics Full incontinence of feces 10/06/2024 Assessment & Plan (10/06/2024 3:21 PM EDT): No sensation of sensing a BM Had previous episodes as a child had constipation and had release of sphincter muscle surgery Try Imodium Infection of index finger 09/23/2024 Assessment & Plan (10/06/2024 3:17 PM EDT): Sloughing of skin previously Still with swelling Would refer to Ortho if Bactrim doesn't get rid of swelling Add Probiotic to help replenish the good bacteria that are destroyed by the Antibiotics Florastor Florajen Align or try Activia in Yogurt Probiotics reduce the risk of antibiotic induced diarrhea Assessment & Plan (09/23/2024 1:50 PM EDT): Add Probiotic to help replenish the good bacteria that are destroyed by the Antibiotics Florastor Florajen Align or try Activia in Yogurt Probiotics reduce the risk of antibiotic induced diarrhea Type 2 diabetes mellitus with foot ulcer (CODE) 07/21/2024 Assessment & Plan (07/21/2024 10:58 AM EDT): Sees Podiatry Recommend Diabetic shoes Paperwork completed and agree with podiatry assessment Non-pressure chronic ulcer o f other part of left foot with fat layer exposed 07/21/2024 Assessment & Plan (07/21/2024 10:58 AM EDT): Recommend Diabetic shoes Pulmonary hypertension, unspecified 07/21/2024 Assessment & Plan (07/21/2024 10:56 AM EDT): Found on Echo Pulmonary pressures are 42 mmHg Type 2 diabetes mellitus wit h diabetic chronic kidney disease 07/21/2024 Assessment & Plan (07/21/2024 10:59 AM EDT): No Tobacco use Follow ADA 1800 diet low carbohydrate Continue Med Compliance Goal LDL less than 100 Goal BP 130/80 Goal HgbA1c < 7.0% Monitor Feet, monitor for infection Needs Exercise Yearly eye exams Prior to your visit today we reviewed your chart and outlined testing and treatment needed for your care. Reviewed poissble complications of diabetes including, loss of vision, kidney failure and increased risk of heart attacks and stroke. We made recommendations on how to control your blood sugars, and minimize your risk of these complications. We discussed your current barriers to a healthy living and importance of healthy diet and exercise. A1c is 5.6 Chronic kidney disease, stage 3a 07/21/2024 Assessment & Plan (09/23/2024 1:50 PM EDT): Avoid NSAIDs such as Ibuprofen, Motrin, Naprosyn. Increase fluids. Assessment & Plan (07/21/2024 10:58 AM EDT): Avoid NSAIDs such as Ibuprofen, Motrin, Naprosyn. Increase fluids. Malignant neoplasm of submandibular gland 2024 Assessment & Plan (07/21/2024 11:00 AM EDT): F/up with ENT as needed Benign essential hypertension 07/17/2023 Assessment & Plan (07/17/2023 10:34 AM EDT): Our specific goals, for your hypertension, is to keep your blood pressure less than 140/90, and the importance of weight control. We made recommendations on how to control your blood pressure, and minimize your risk of these copmplications. We also discussed your current barriers to a healthy living and importance of healthy diet and exercise. Prior to your visit today we have reviewed your chart and formed a plan to assist with providing you the best possible care. We reviewed the possible complications of hypertension including, stroke, heart failure and kidney impairment. In addition, we discussed your medications, the importance of taking them as prescribed. DASH diet handouts Numbness and tingling of both legs 05/07/2023 Spinal stenosis of lumbar re gion with neurogenic claudication 05/07/2023 Abnormal ECG 04/02/2023 Hx of CABG 04/02/2023 Personal history of breast cancer 11/22/2022 Medicare annual wellness visit, subsequent 09/06 Assessment & Plan (07/21/2024 10:59 AM EDT): Colonoscopy every 10 years or Cologuard every 3 years ages 50-75 Flu Vaccine yearly Pneumovax and Prevnar Mammo yearly for women and PSA yearly for men Labs/Screening yearly to rule out Diabetes, Chronic Kidney disease and liver disease Hepatitis Screen forat risk populations Shingles vaccine after 65 if indicated Tetanus Vaccine every 10 years Lipids yearly under the age of 75 If Smoking history: one time CT scan of chest and Ultrasound of Aorta to screen for Anuerysm Assessment & Plan (07/17/2023 10:32 AM EDT): Colonoscopy every 10 years or Cologuard every 3 years ages 50-75 Flu Vaccine yearly Pneumovax and Prevnar Mammo yearly for women and PSA yearly for men Labs/Screening yearly to rule out Diabetes, Chronic Kidney disease and liver disease Hepatitis Screen forat risk populations Shingles vaccine after 65 if indicated Tetanus Vaccine every 10 years Lipids yearly under the age of 75 If Smoking history: one time CT scan of chest and Ultrasound of Aorta to screen for Anuerysm Abnormal mammogram 09/04/2022 Unspecified systolic (congestive) heart failure 09/04/2022 Assessment & Plan (07/21/2024 10:55 AM EDT): Stable for now no acute exacerbations Calculus of gallbladder with out cholecystitis without obstruction 09/04/2022 Chronic diastolic (congestive) heart failure Assessment & Plan (07/21/2024 10:57 AM EDT): Stable Elevated liver enzymes 09/04/2022 Acquired hammer toe of left foot 09/04/2022 Acquired hammer toe of right foot 09/04/2022 Hammer toe 09/04/2022 History of COVID-19 09/04/2022 Hypertensive heart disease with heart failure Assessment & Plan (07/21/2024 10:57 AM EDT): BP is controlled Malignant neoplasm of centra l portion of right female breast 09/04/2022 Mild episode of recurrent major depressive disor hansa 09/04/2022 Mild nonproliferative diabet ic retinopathy associated with type 2 diabetes mellitus 09/04/2022 Polyneuropathy due to type 2 diabetes mellitus 0 09/04/2022 Primary osteoarthritis, right hand 09/04/2022 Other cardiomyopathies 09/04/2022 Assessment & Plan (07/21/2024 10:56 AM EDT): Stable continue current medicines Triple negative malignant neoplasm of breast Type 2 diabetes mellitus with peripheral vascula r disease 09/04/2022 Assessment & Plan (07/21/2024 10:56 AM EDT): S/P CVA, continue current meds F/Up with specialists Assessment & Plan (07/17/2023 10:31 AM EDT): No Tobacco use Follow ADA 1800 diet low carbohydrate Continue Med Compliance Goal LDL less than 100 Goal BP 130/80 Goal HgbA1c < 7.0% Monitor Feet, monitor for infection Needs Exercise Yearly eye exams Prior to your visit today we reviewed your chart and outlined testing and treatment needed for your care. Reviewed poissble complications of diabetes including, loss of vision, kidney failure and increased risk of heart attacks and stroke. We made recommendations on how to control your blood sugars, and minimize your risk of these complications. We discussed your current barriers to a healthy living and importance of healthy diet and exercise. 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 Abnormal ultrasound of breast 10/12/2020 Nonproliferative diabetic retinopathy of left ey e 01/01/2020 Sensorineural hearing loss, unilateral, right ear, with unrestricted hearing on the contralateral side 09/15/2019 Asymmetrical sensorineural hearing loss 08/13/19 20 Conductive hearing loss, bilateral 03/24/2019 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 03/24/2019 Retained orthopedic hardware 03/04/2019 Reduced ejection fraction co ncurrent with and due to chronic heart failure 11/21/2018 Peripheral angiopathy due to type 2 diabetes brandyn litus 09/17/2018 Diabetic autonomic neuropath y associated with type 2 diabetes mellitus 08/22/2018 Diabetic retinopathy associa gabo with type 2 diabetes mellitus 05/21/2018 program management manager current use of anticoagulant therapy 0 04/11/2018 Anger reaction 08/09/2017 Seasonal allergic rhinitis due to pollen 018 LPRD (laryngopharyngeal reflux disease) 12/28/19 17 Hypercholesterolemia 11/28/2016 Assessment & Plan (07/21/2024 11:00 AM EDT): This is a chronic medical condition that is stable since last assessment. No changes in treatment are suggested at this time. Continue Current meds. Paralyzed vocal cords 11/28/2016 RLS (restless legs syndrome) 11/28/2016 Diastolic dysfunction with acute on chronic hear t failure 02/17/2016 Tension headache 02/17/2016 Moderate nonproliferative di abetic retinopathy without macular edema associated with type 2 diabetes mellitus 11/18/2015 Diabetic peripheral neuropat hy associated with type 2 diabetes mellitus 09/23/2015 Headache 09/02/2015 Neuropathy 09/02/2015 Diabetic renal disease 07/01/2015 Assessment & Plan (01/15/2023 2:03 PM EST): No Tobacco use Follow ADA 1800 diet low carbohydrate Continue Med Compliance Goal LDL less than 100 Goal BP 130/80 Goal HgbA1c < 7.0% Monitor Feet, monitor for infection Needs Exercise Yearly eye exams Prior to your visit today we reviewed your chart and outlined testing and treatment needed for your care. Reviewed poissble complications of diabetes including, loss of vision, kidney failure and increased risk of heart attacks and stroke. We made recommendations on how to control your blood sugars, and minimize your risk of these complications. We discussed your current barriers to a healthy living and importance of healthy diet and exercise. Hiatal hernia 06/28/2015 Osteoporosis 03/01/2015 Acquired hypothyroidism 01/19/2015 Assessment & Plan (07/21/2024 10:59 AM EDT): Check labs Allergic rhinitis 01/19/2015 Edema 01/19/2015 History of stroke without residual deficits 12/14 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 disorder 5 Disorder of lipid metabolism 09/23/2013 Other forms of chronic ischemic heart disease Overview (09/04/2022): EF 33% BY STRESS (02/25) Abnormal results of cardiovascular function stud ies 03/10/2013 Overview (09/04/2022): ANTERIOR INFARCT; FRANCIS-INFARCT ISCHEMIA Ischemic heart disease 03/10/2013 Overview (09/04/2022): EF 33% BY STRESS (02/25) Chronic systolic (congestive) heart failure 02/13 Assessment & Plan (07/21/2024 10:57 AM EDT): Continue current meds Assessment & Plan (01/15/2023 2:08 PM EST): Reviewed Echo and reduced EF On Entresto Hyperlipidemia 03/12/2012 Assessment & Plan (07/21/2024 11:00 AM EDT): This is a chronic medical condition that is stable since last assessment. No changes in treatment are suggested at this time. Continue Current meds. Mitral valve disorder 03/12/2012 Type 2 diabetes mellitus 03/12/2012 Encounters Date Type Department Care Team Description 10/22/2024 1:15 PM EDT Procedure Visit [facility] [address] [place] [address] Ariel Lopez DPM Onychodystrophy (Primary Dx); Onychomycosis; Type II or unspecified type diabetes mellitus with neurological manifestations, not stated as uncontrolled(250.60) ([facility]) 10/22/2024 Bamboo flowsheet [facility] [address] [place] [address] Ariel Lopez DPM 10/22/2024 Travel 10/21/2024 Travel 10/06/2024 3:00 PM EDT Office Visit [facility] [address] [place] [address] [place] [address] Oz Savage MD Infection of index finger (Primary Dx); Swelling of index finger; Full incontinence of feces 10/06/2024 Bamboo flowsheet [facility] [address] [facility] [address] [place] [address] Oz Savage MD 10/06/2024 Travel 10/01/2024 10:30 AM EDT Office Visit [facility] [address] [facility] [address] [place] [phone] Asymmetrical sensorineural hearing loss (Primary Dx) 09/23/2024 1:30 PM EDT Office Visit [facility] [address] [facility] [address] [place] [phone] Oz Savage MD Infection of index finger (Primary Dx); Chronic kidney disease, stage 3a ([facility]) 09/23/2024 Bamboo flowsheet [facility] [address] [facility] [address] [place] [address] Oz Savage MD 09/23/2024 Travel 09/18/2024 Telephone [facility] [address] [facility] [place] [address] Saima Stanford MA 09/17/2024 10:00 AM EDT Office Visit [facility] [address] [place] [phone] Asymmetrical sensorineural hearing loss (Primary Dx) 08/27/2024 Abstract [facility] [address] [facility] [place] [address] Yanni Ortiz, [facility] 08/26/2024 Abstract [facility] [address] [place] [phone] Ariel Lopez, LALIT 08/25/2024 Telephone [facility] [address] [place] [address] Ariel Lopez DPM Advice Only (Keeping DM shoes) 08/18/2024 10:15 AM EDT Clinical Support [facility] [address] [place] [address] Yanni Ortiz, CCC-A Asymmetrical sensorineural hearing loss (Primary Dx) 08/18/2024 Bamboo flowsheet [facility] [address] [place] [address] Yanni Ortiz, CCC-A 08/15/2024 Refill [facility] [address] [place] [place] [address] Vanessa Mejia PA Acquired hypothyroidism ; 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 disorder ; Hypercholesterolemia ; OAB (overactive bladder) 08/08/2024 10:45 AM EDT [facility] [address] [place] [address] Ariel Lopez DPM Type II or unspecified type diabetes mellitus with neurological manifestations, not stated as uncontrolled(250.60) ([facility]) (Primary Dx); Hammer toe of left foot; Corns and callosities; Contracture of toe of left foot; Peripheral vascular disease 08/08/2024 Bamboo [facility] [address] [place] [address] Ariel Lopez DPM 08/08/2024 Travel 08/07/2024 Travel from Last 3 Months Immunizations Immunization Administration Dates Next Due Pneumococcal Conjugate PCV 13 12/27/2017 Td (adult), 5 Lf tetanus tox oid, preservative free, adsorbed 01/04/2009 Tdap 08/30/2017 Zoster, live 08/20/2018 Family History Medical History Relation Name Comments Hypertension Father My dad ? Cancer Maternal Grandfather Diabetes Paternal Grandmother Heart disease Sibling Breast cancer Neg Hx Colon cancer Neg Hx Ovarian cancer Neg Hx Uterine cancer Neg Hx Relation Name Status Comments Brother 3 Father My dad ? Maternal Grandfather Alive Mother Paternal Grandmother Sibling Sister 2 Social History Tobacco Use Types Packs/Day Years Used Date Smoking Tobacco: Never Smokeless Tobacco: Never Tobacco Cessation:Counseling Given: Yes Alcohol Use Standard Drinks/Week Comments Never 0 [...] file Not on file Not on file Last Filed Vital Signs Vital Sign Reading Time Taken Comments Blood Pressure 130/68 10/06/2024 3:05 PM EDT Pulse 56 10/06/2024 3:05 PM EDT Temperature - - Respiratory Rate 16 09/23/2024 1:39 PM EDT Oxygen Saturation 96% 10/06/2024 3:05 PM EDT Inhaled Oxygen Concentration - - Weight 77.1 kg (170 lb) 10/22/2024 1:36 PM EDT Height 162.6 cm (5' 4 ) 10/22/2024 1:36 PM EDT Body Mass Index 29.18 10/22/2024 1:36 PM EDT Plan of Treatment Upcoming Encounters Date Type Department Care Team (Late st Contact Info) Description 12/16/2024 4:15 PM EST Office Visit [facility] [address] [facility] [address] [place] [phone] Dakota Forman MD [address] [facility] [address] [place] [address] 01/05/2025 1:15 PM EST Office Visit [facility] [address] [facility] [address] [place] [address] Sandoval Robbins DO [address] [facility] [address] [place] [address] 01/28/2025 2:15 PM EST Procedure Visit [facility] [address] [place] [phone] Ariel Lopez, DPM [address] [place], [place] [phone] 04/01/2025 11:00 AM EST Office [facility] [address] [place] [address] [place] [address] Health Maintenance Due Date Last Done Comments CT Colonography 1950 FIT-DNA 1950 FIT 1950 FOBT 1950 Sigmoidoscopy 1950 Pneumococcal Vaccine: 65+ Ye ars (2 of 2 - PPSV23) 02/21/2018 12/27/2017 Diabetes: Urine Protein Screening 07/22/2024 024 Influenza Vaccine (#1) 2024 Diabetes: Hemoglobin A1C 10/21/2024 025, 07/17/2023, 01/15/2023, Additional history exists Diabetes: Retinopathy Screening 03/10/2025 03/10/2024, 03/05/2023, 03/01/2022, Additional history exists Medicare Annual Wellness (AWV) 07/21/2025 0 07/21/2024, 07/17/2023, 04/01/2021 Colonoscopy 12/13/2032 12/13/2022, 03/15, 03/25/2012 Colorectal Cancer Screening 12/13/2032 Mammogram Discontinued 11/26/2023, 11/12, 10/21/2021, Additional history exists Procedures Procedure Name Priority Date/Time Associated Diagnosis Comments POCT GLYCATED HEMOGLOBIN, TOTAL Routine 07/21/2024 10:59 AM EDT Type 2 diabetes mellitus with peripheral vascular disease (HCC) DIABETIC RETINOPATHY SCREENING - OU - BOTH EYES Routine 03/10/2024 BI MAMMOGRAM DIAGNOSTIC TOMOSYNTHESIS BILATERAL Routine 11/26/2023 10:52 AM EDT Personal history of breast cancer MICROALBUMIN / CREATININE URINE RATIO Routine 07/23/2023 10:35 AM EDT Medicare annual wellness visit, subsequent Type 2 diabetes mellitus with peripheral vascular disease (HCC) COLONOSCOPY DIAGNOSTIC Routine 12/13/2022 from Last 3 Months or Most Recently Relevant to Health Maintenance Results * POCT Glycated hemoglobin, total (07/21/2024 10:59 AM EDT) Hemoglobin A1C 5.6 Blood 07/21/2024 10:5 9 AM EDT us Oz Savage MD POINT OF CARE TEST ENTER/EDIT OR DERABLES Final Result * Diabetic Retinopathy Screening - OU - Both Eyes (03/10/2024) RESULTS normal Anatomical Region Laterality Modality Head Other 03/10/2024 us Oz Savage MD OPHTH PHOTOGRAPHY Final Result * Bilateral diagnostic mammogram with tomosynthesis (11/26/2023 10:52 AM EDT) Anatomical Region Laterality Modality Breast Bilateral Mammography 11/26/2023 10:5 2 AM EDT Impressions 11/26/2023 1:03 PM EDT NO MAMMOGRAPHIC EVIDENCE OF MALIGNANCY. ROUTINE FOLLOW-UP [...] Vanessa Alva M.D.11/26/2023 1:01 PM Dictation Location: [id number] Transcribed By: [facility] 11/26/23 1301 Dictated By: Vanessa Alva MD 11/26/23 1052 Signed By: <Electronically signed by MD Vanessa Alva in [place]> 11/26/23 1301 Narrative 11/26/2023 1:03 PM EDT [facility] [address] [address] Mammography Report Signed Patient: Lilly Mckeon MR#: [id number] : 1950 Acct:[id number] Age/Sex: 73 / F ADM Date: 11/26/23 Loc: [place] Room: Type: REG CLI Attending Dr: Sandoval Robbins DO Copies to: DO Oz Pollock MD Ordering Provider: Sandoval Robbins DO Date of Service: 11/26/23 MM/MM diagnostic [...] interval change. MM/MM diagnostic mammo BI w/CAD Procedure Note Radiology, Radiologist, MD - 11/26/2023 [facility] [place] [id number] Mammography Report Signed Patient: Lilly Mckeon LMR#: [id number] : 1950Acct:[id number] Age/Sex: 73 / FADM Date: 11/26/23 Loc: [place] Room:Type: [facility] CLI Attending Dr: Sandoval Robbins DO Copies to: DO Oz Pollock MD Ordering Provider: Sandoval Robbins DO Date of Service: 11/26/23 MM/MM diagnostic mammo BI w/CAD: Yrly mamms CLINICAL DATA: Prior right breast cancer. BILATERAL DIAGNOSTIC MAMMOGRAMS - FULL FIELD DIGITAL WITH TOMOSYNTHESISAND CAD Tomosynthesis craniocaudal and mediolateral oblique views of both breastswere obtained using low- dose digital technique. Comparison is made to prior studies from 2017 through November 21, 2022. This examination was reviewed with the aid of CAD. There are scattered fibroglandular densities. There is postoperativescarring and BioZorb at the central right breast posteriorly. There are some benign and vascularcalcifications. There are no developing masses, typically malignant calcifications or architecturaldistortion. There has been no significant interval change. [...] system with a target due date for thenext mammogram. Impression dictated by: Vanessa Alva M.D.11/26/2023 1:01 PM Dictation Location: [facility] Transcribed By: [facility] 11/26/23 1301 Dictated By: Vanessa Alva MD 11/26/23 1052 Signed By: <Electronically signed by MD Vanessa Alva in OV> 11/26/23 1301 Sandoval Robbins DO IMG BI PROCEDURES Final R esult * (ABNORMAL) Microalbumin / creatinine urine ratio (07/23/2023 10:35 AM EDT) CREATININE, RANDOM URINE 59 20 - 275 mg/dL [facility] ALBUMIN, URINE 1.8 See Note: mg/dL [facility] Comment: Reference Range: Reference Range Not established ALBUMIN/CREATININE RATIO, RANDOM URINE 31(H) <30 mg/g creat [facility] Comment: The ADA defines abnormalities in albumin excretion as follows: Albuminuria Category Result (mg/g creatinine) Normal to Mildly increased <30 Moderately increased 30-299 Severely increased > OR = 300 The ADA recommends that at least two of three specimens collected within a 3-6 month period be abnormal before considering a patient to be within a diagnostic category. Urine Urine specimen obtained by clean catch procedure / Unknown 07/23/2023 10:35 AM EDT 07/23/2023 10:36 AM EDT Narrative [facility] - 07/24/2023 2:20 PM EDT SPLIT 07/20/2023 FROM [id number] Resulting Agency Comment Performing Organization Information Site ID: QPT Name: [facility] Address: [address] [place] [address], [address] [place] [id number] Director: Homer Funes MD Oz Savage MD LAB URINE ORDERABLES Final Resul t [facility] * COLONOSCOPY DIAGNOSTIC (12/13/2022) Anatomical Region Laterality Modality Radiographic Stephani ging 12/13/2022 Narrative 12/13/2022 11:47 AM EDT normal Oz Savage MD IMG XR PROCEDURES Final Result from Last 3 Months or Most Recently Relevant to Health Maintenance Insurance MEDICARE [employer] Care Teams Cut Off Sawyer Relationship Specialty Start Date End Date Oz Savage MD [address] [facility] 110 [place] [address] PCP - General Family Medicine 07/25/22 Oz Savage MD [address] [facility] 110 [place] [address] PCP - ACO Reach 04/13/23
--- OUTSIDE RECORDS SUMMARY | 2024-10-31 12:07 | XMS_ITS | Encounter Summary ---
Author Organization [facility] Address [address] [facility] [place] [address] Care Team Providers Care Health Benefits Specialist Name Role Phone Oz Savage MD Primary Care Provider [phone] Oz Savage MD Unavailable Encounter Details Date Type Department Care Team (Latest Contact Info) Description 10/22/2024 Travel Social History Tobacco Use Types Packs/Day Years [...] 12/16/2024 4:15 PM EST Office Visit [facility] [place] [facility]rology [address] [facility] 310 [place] [phone] Dakota Forman MD [address] [place] 111 [place], [place] [address] 01/05/2025 1:15 PM EST Office Visit [facility] [address] [facility] 150 [place] [address] Sandoval Robbins DO 703 [facility] 150 [place] [address] 01/28/2025 2:15 PM EST Procedure Visit [facility] [address] [place] [address] Ariel Lopez, DPM 1900 [place] [address] 04/01/2025 11:00 AM EST Office Visit [facility] [place] [facility] [address] [facility] 130 [place] [address] documented as of this encounter Visit Diagnoses Not on filedocumented in this encounter Care Teams Health Benefits Specialist Relationship Specialty Start Date End Date zO Savage MD [address] [facility] 110 [place] [address] PCP - General Family Medicine 07/25/22 Oz Savage MD [address] [facility] 110 [place] [address] PCP - ACO Reach 04/13/23 documented as of this encounter
--- OUTSIDE RECORDS SUMMARY | 2024-10-31 12:07 | XMS_ITS | Encounter Summary ---
Author Organization [facility] Address [address] [facility] [facility] [place] [address] Care Team Providers Care Director Of Strategic Sales Name Role Phone Oz Savage MD Primary Care Provider Oz Savage MD Unavailable Litzy Montoya RN Unavailable Encounter Details Date Type Department Care Team (Late st Contact Info) Description 12/14/2022 Abstract [facility] [place] [facility] [address] [place] 110 [place] [phone] Oz Savage MD [address] [facility] 110 [place] [address] Social History Tobacco Use Types Packs/Day Years Used Date Smoking Tobacco: Never Smokeless Tobacco: Never Alcohol Use Standard Drinks/Week Comments Never 0 (1 standard drink = 0.6 oz pur e alcohol) Comments Unknown Sex and Gender Information Value Date Recorded Sex Assigned at Not on file Legal Sex Female 7:15 PM EDT Gender Identity Not on file Sexual Orientation Not on file documented as of this encounter Plan of Treatment Upcoming Encounters Date Type Department Care Team (Late st Contact Info) Description 12/16/2024 4:15 PM EST Office Visit [facility] [place] [facility] Neurology [address] [place] [address] [place] [address] Dakota Forman MD 53[address] [facility] 111 [place] [address] 01/05/2025 1:15 PM EST Office Visit [facility] 703 [facility] 150 [place] [address] Sandoval Robbins DO 703 [facility] 150 [place] [address] 01/28/2025 2:15 PM EST Procedure Visit [facility] [address] [place] [address] Ariel Lopez, DPM [address] [place], [place] [address] 04/01/2025 11:00 AM EST Office Visit [facility] [place] [facility] [address] [facility] 130 [place] [address] documented as of this encounter Visit Diagnoses Not on filedocumented in this encounter Care Teams Director Of Strategic Sales Relationship Specialty Start Date End Date Oz Savage MD [address] [facility] 110 [place] [address] PCP - General Family Medicine 07/25/22 Oz Savage MD [address] [facility] 110 [place] [address] PCP - ACO Reach 04/13/23 Litzy Montoya, RN [address] [place] [address] Registered Nurse Family Medicine 10/28/24 10/30/24 documented as of this encounter
--- OUTSIDE RECORDS SUMMARY | 2024-10-31 12:07 | XMS_ITS | Encounter Summary ---
Author Organization [facility] Address [address] [facility] [place] [address] Care Team Providers Care Gin Clerk Name Role Phone Oz Savage MD Unavailable Oz Savage MD Primary Care Provider Oz Savage MD Unavailable Litzy Montoya RN Unavailable [phone] Encounter Details Date Type Department Care Team (Late st Contact Info) Description 10/23/2019 Abstract [facility] [address] [facility] [place] [address] Yanni Ortiz, [facility] [address] [place] [address] Social History Tobacco Use Types Packs/Day Years Used Date Smoking Tobacco: Never Assessed Comments Unknown Sex and Gender Information Value Date Recorded Sex Assigned at Not on file Legal Sex Female 7:15 PM EDT Gender Identity Not on file Sexual Orientation Not on file documented as of this encounter Plan of Treatment Upcoming Encounters Date Type Department Care Team (Late st Contact Info) Description 12/16/2024 4:15 PM EST Office Visit [facility] Neurology [address] [place] [address] [place] [address] Dakota Forman MD 5319 [facility] 111 [place] [address] 01/05/2025 1:15 PM EST Office Visit [facility] 703 [facility] 150 [place] [address] Sandoval Robbins DO 703 [facility] 150 [place] [address] 01/28/2025 2:15 PM EST Procedure Visit [facility] [address] [place] [address] Ariel Lopez, DPM 1900 [place], [place] [address] 04/01/2025 11:00 AM EST Office Visit [facility] [place] [facility] [address] [facility] 130 [place] [address] documented as of this encounter Visit Diagnoses Not on filedocumented in this encounter Care Teams Gin Clerk Relationship Specialty Start Date End Date Oz Savage MD 112 [facility] 110 [place] [address] PCP - MSSP ACO Attributed Provider 11/12/21 02/10/22 Oz Savage MD 112 [facility] 110 [place] [address] PCP - General Family Medicine 07/25/22 Oz Savage MD 112 [facility] 110 [place] [address] PCP - ACO Reach 04/13/23 Litzy Montoya, RN [address] [place] [address] Registered Nurse Family Medicine 10/28/24 10/30/24 documented as of this encounter
--- OUTSIDE RECORDS SUMMARY | 2024-10-31 12:07 | XMS_ITS | Encounter Summary ---
Author Organization [facility] Address [address] [place] [address] Care Team Providers Care Supervisor Trust Accounts Name Role Phone Oz Savage MD Primary Care Provider [phone] Oz Savage MD Unavailable Litzy Montoya RN Unavailable Reason for Visit * Reason Comments Med Refill Encounter Details Date Type Department Care Team (Late st Contact Info) Description 05/31/2024 Refill [facility] [place] [facility] 112 [facility] 110 [place] [address] Oz Savage MD 112 [facility] 110 [place], [place] [address] Acquired hypothyroidism ; OAB (overactive bladder); Hypercholesterolemia ; 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 disorder Social History Tobacco Use Types Packs/Day Years Used Date Smoking Tobacco: Never Smokeless Tobacco: Never Alcohol Use Standard Drinks/Week Comments Never 0 (1 standard drink = 0.6 oz pure alcohol) Caffeine Intake: 1-2 cups per day coffee, soda/pop PHQ-2 Answer Date Recorded Patient Health Questionnaire-2 Score 0 07/17/2023 Comments Unknown Sex and Gender Information Value Date Recorded Sex Assigned at Not on file Legal Sex Female 7:15 PM EDT Gender Identity Not on file Sexual Orientation Not on file Occupation Industry Job Start Date Job End Date Not on file Not on file Not on file Not on file documented as of this encounter Miscellaneous Notes * Telephone Encounter - Eliza Patel - 06/03/2024 9:16 AM EDT Pt scheduled * Telephone Encounter - Eliza Patel - 06/02/2024 11:08 AM EDT Lvm * Telephone Encounter - ZULMA Kevin - 05/31/2024 9:02 AM EDT Please help pt get set up for a wellness visit with Dr. Savage in July. documented in this encounter Plan of Treatment Upcoming Encounters Date Type Department Care Team (Late st Contact Info) Description 12/16/2024 4:15 PM EST Office Visit [facility] Neurology [address] [facility] 310 [place] [address] Dakota Forman MD [address] [facility] 111 [place] [address] 01/05/2025 1:15 PM EST Office Visit [facility] 703 [facility] 150 [place] [address] Sandoval Robbins DO 703 [facility] 150 [place] [address] 01/28/2025 2:15 PM EST Procedure Visit [facility] [address] [place] [address] Ariel Lopez DPM 1900 [place] [address] 04/01/2025 11:00 AM EST Office Visit [facility] [place] [facility] [address] [facility] 130 [place] [address] documented as of this encounter Visit Diagnoses Diagnosis Acquired hypothyroidism Unspecified hypothyroidism OAB (overactive bladder) Hypercholesterolemia Pure hypercholesterolemia 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 disorder documented in this encounter Care Teams Supervisor Trust Accounts Relationship Specialty Start Date End Date Oz Savage MD [address] [facility] 110 [place] [address] PCP - General Family Medicine 07/25/22 Oz Savage MD [address] [facility] 110 [place] [address] PCP - ACO Reach 04/13/23 Litzy Montoya, MELQUIADES [address] [place], [place] [phone] Registered Nurse Family Medicine 10/28/24 10/30/24 documented as of this encounter
--- OUTSIDE RECORDS SUMMARY | 2024-10-31 12:07 | XMS_ITS | Encounter Summary ---
Author Organization [facility] Address [address] [place] [address] Care Team Providers Care Wood Router Hand Name Role Phone Oz Savage MD Primary Care Provider [phone] Oz Savage MD Unavailable Litzy Montoya RN Unavailable [phone] Encounter Details Date Type Department Care Team (Late st Contact Info) Description 10/02/2022 Abstract [facility] 1900 [place] [address] Irais Salinas, DPM 1900 [place] [address] Social History Tobacco Use Types Packs/Day Years Used Date Smoking Tobacco: Never Smokeless Tobacco: Never Alcohol Use Standard Drinks/Week Comments Not Currently 0 (1 standard drink = 0.6 oz pur e alcohol) Comments Unknown Sex and Gender Information Value Date Recorded Sex Assigned at Not on file Legal Sex Female 7:15 PM EDT Gender Identity Not on file Sexual Orientation Not on file COVID-19 Exposure Response Date Recorded In the last 10 days, have yo u been in contact with someone who was confirmed or suspected to have Coronavirus/COVID-19? No / Unsure 10/01/2022 7:57 PM EDT documented as of this encounter Plan of Treatment Upcoming Encounters Date Type Department Care Team (Late st Contact Info) Description 12/16/2024 4:15 PM EST Office Visit [facility] [place] [facility] [address] [facility] 310 [place] [address] Dakota Forman MD 4060 [facility] 111 [place] [address] 01/05/2025 1:15 PM EST Office Visit [facility] 703 [facility] 150 [place] [address] Sandoval Robbins DO 703 [facility] 150 [place] [address] 01/28/2025 2:15 PM EST Procedure Visit [facility] [place] [facility] 1900 [place] [address] Ariel Lopez DPM 1900 [place] [address] 04/01/2025 11:00 AM EST Office Visit [facility] 112 [facility] 130 [place] [address] documented as of this encounter Visit Diagnoses Not on filedocumented in this encounter Care Teams Wood Router Hand Relationship Specialty Start Date End Date Oz Savage MD [address] [facility] 110 [place] [address] PCP - General Family Medicine 07/25/22 Oz Savage MD [address] [facility] 110 [place] [address] PCP - ACO Reach 04/13/23 Litzy Montoya, RN [address] [place] [address] Registered Nurse Family Medicine 10/28/24 10/30/24 documented as of this encounter
--- OUTSIDE RECORDS SUMMARY | 2024-10-31 12:07 | XMS_ITS | Encounter Summary ---
Author Organization [facility] Address [address] [facility] [place] [address] Care Team Providers Care Plastic Welding Machine Operator Name Role Phone Oz Savage MD Primary Care Provider Oz Savage MD Unavailable Litzy Montoya RN Unavailable [phone] Encounter Details Date Type Department Care Team (Late Contact Info) Description 03/11/2024 Abstract [facility] [place] [facility] [address] [facility] 110 [place] [address] Oz Savage MD [address] [facility] 110 [place], [place] [phone] Social History Tobacco Use Types Packs/Day Years [...] 12/16/2024 4:15 PM EST Office Visit [facility] [place] [facility] [address] [facility] 310 [place] [address] Dakota Forman MD 53[address] [facility] 111 [place] [address] 01/05/2025 1:15 PM EST Office Visit [facility] 703 [facility] 150 [place] [address] Sandoval Robbins, 703 [facility] 150 [place] [address] 01/28/2025 2:15 PM EST Procedure Visit [facility] 1900 [place] [address] Ariel Lopez DPWilmar 1900 [place] [address] 04/01/2025 11:00 AM EST Office Visit [facility] [place] [facility] [address] [facility] 130 [place] [address] documented as of this encounter Visit Diagnoses Not on filedocumented in this encounter Care Teams Plastic Welding Machine Operator Relationship Specialty Start Date End Date Oz Savage MD [address] [facility] 110 [place] [address] PCP - General Family Medicine 07/25/22 Oz Savage MD [address] [facility] [facility] 110 [place] [address] PCP - ACO Reach 04/13/23 Litzy Montoya, RN [address] [place] [address] Registered Nurse Family Medicine 10/28/24 10/30/24 documented as of this encounter
--- OUTSIDE RECORDS SUMMARY | 2024-10-31 12:07 | XMS_ITS | Encounter Summary ---
Author Organization [facility] Address [address] [place] [address] Care Team Providers Care Nursing Center Tutor Name Role Phone Oz Schilling MD Primary Care Provider [phone] Oz Schilling MD Unavailable Litzy Montoya RN Unavailable [phone] Encounter Details Date Type Department Care Team (Late st Contact Info) Description 03/30/2023 Clinisync Result Encounter [facility] External Department Unsolicited Provider, Generic External Data Social History Tobacco Use Types Packs/Day Years [...] 4:15 PM EST Office Visit [facility] [place] [facility] [address] [facility] 310 [place] [address] Dakota Forman MD [address] [place] [address] [place] [address] 01/05/2025 1:15 PM EST [facility] 703 [facility] 150 [place] [address] Sandoval Robbins DO 703 [facility] 150 [place] [address] 01/28/2025 2:15 PM EST Procedure Visit [facility] [address] [place] [address] Ariel Lopez, DPM 1900 [place], [place] [address] 04/01/2025 11:00 AM EST Office Visit [facility] 112 [facility] 130 [place] [address] documented as of this encounter Procedures Procedure Name Priority Date/Time Associated Diagnosis Comments CT CHEST WO CON 03/30/2023 4:00 PM EST documented in this encounter Results * CT CHEST WO CON (03/30/2023 4:00 PM EST) Anatomical Region Laterality Modality Other 03/30/2023 4:00 PM EST Narrative 03/30/2023 4:03 PM EST [address] [address] [address] Scan Report Signed Patient: LILLY HORNE MR#: [id number] : 1950 Acct:[id number] Age/Sex: 73 / F ADM Date: 03/30/23 Loc: CT Attending Dr: Jd Youngblood D.O. Ordering Physician: Jd Youngblood D.O. Date of Service: 03/30/23 Procedure(s): CT chest wo con Accession Number(s): [id number] cc: OZ SCHILLING [address] [address] Patient Name: LILLY HORNE MRN: [id number] date: 1950 Sex: F Assigned Patient Location: CT Current Patient Location: CT Accession/Order Number: [id number] Exam Date: 03/30/2023 15:26 Report Date: 03/30/2023 16:00 At the request of: JD YOUNGBLOOD Procedure: CT chest wo con EXAMINATION: CT chest wo con HISTORY: aspiration pneumonia due to to gastric secretions J89.0 COMPARISON: CT chest 12/14/2022 TECHNIQUE: Multi-planar CT images were obtained without and/or with IV contrast as indicated by examination type. Axial, Coronal, and Sagittal images. Dose reduction techniques were achieved by using automated exposure control and/or adjustment of mA and/or kV according to patient size and/or use of iterative reconstruction technique. FINDINGS: LUNGS: Small curvilinear opacity within posterior lateral left lung base adjacent small amount of alveolar disease in area of prior pneumonia; residual infiltrates versus scarring. Lungs are otherwise clear. PLEURA: No mass, effusion, or pneumothorax. VASCULATURE: No abnormality. LEATHA: Calcified lymph nodes compatible with chronic granulomatous disease. MEDIASTINUM: Calcified lymph nodes. CARDIAC: Marked atherosclerotic coronary artery disease. No enlargement or pericardial effusion. AORTA: No aneurysm or dissection. CHEST WALL: No mass or axillary adenopathy. BONES: No bone lesion or fracture. LIMITED ABDOMEN: No suspicious findings Limited images of the upper abdomen. OTHER: Negative. CT/CT chest wo con IMPRESSION: 1. Complete clearing of previously seen pneumonia. Suspect trace amount scarring within posterior left lung base. 2. No lymphadenopathy. Electronically authenticated by: MIKE ASTUDILLO Date: 03/30/2023 16:00 Dictated By: Mike Astudillo M.D. Signed By: 03/30/23 1603 DD/ 1600 TD/TT: Claims Collector: Procedure Note Radiology, Radiologist, - 03/30/[address] [address] [address] Scan Report Signed Patient: LILLY HORNE LMR#: [id number] : 1950Acct:[id number] Age/Sex: 73 / FADM Date: 03/30/23 Loc: CT Attending Dr: Jd Youngblood D.O. Ordering Physician: Jd Youngblood D.O. Date of Service: 03/30/23 Procedure(s): CT chest wo con Accession Number(s): [id number] cc: OZ SCHILLING [place] [address] Patient Name: LILLY HORNE MRN: [facility]:[id number] date: 1950 Sex: F Assigned Patient Location: CT Current Patient Location: CT Accession/Order Number: [id number] Exam Date: 03/30/2023 15:26 Report Date: 03/30/2023 16:00 At the request of: JD YOUNGBLOOD Procedure: CT chest wo con EXAMINATION: CT chest wo con HISTORY: aspiration pneumonia due to to gastric secretions J89.0 COMPARISON: CT chest 12/14/2022 TECHNIQUE: Multi-planar CT images were obtained without and/or with IV contrast as indicated by examination type. Axial, Coronal, and Sagittal images.Dose reduction techniques were achieved by using automated exposure controland/or adjustment of mA and/or kV according to patient size and/or use ofiterative reconstruction technique. FINDINGS: LUNGS: Small curvilinear opacity within posterior lateral left lung base adjacent small amount of alveolar disease in area of prior pneumonia;residual infiltrates versus scarring. Lungs are otherwise clear. PLEURA: No mass, effusion, or pneumothorax. VASCULATURE: No abnormality. LEATHA: Calcified lymph nodes compatible with chronic granulomatous disease. MEDIASTINUM: Calcified lymph nodes. CARDIAC: Marked atherosclerotic coronary artery disease. No enlargement or pericardial effusion. AORTA: No aneurysm or dissection. CHEST WALL: No mass or axillary adenopathy. BONES: No bone lesion or fracture. LIMITED ABDOMEN: No suspicious findings Limited images of the upperabdomen. OTHER: Negative. CT/CT chest wo con IMPRESSION: 1. Complete clearing of previously seen pneumonia. Suspect trace amount scarring within posterior left lung base. 2. No lymphadenopathy. Electronically authenticated by: MIKE ASTUDILLO Date: 03/30/2023 16:00 Dictated By: Mike Astudillo M.D. Signed By:03/30/23 1601 DD/ 1600 TD/TT: Claims Collector: us Generic External Data Provider [facility] Final Result documented in this encounter Visit Diagnoses Not on filedocumented in this encounter Care Teams Nursing Center Tutor Relationship Specialty Start Date End Date Oz Schilling MD [address] [facility] 110 [place] [address] PCP - General Family Medicine 07/25/22 Oz Schilling MD [address] [facility] 110 [place] [address] PCP - ACO Reach 04/13/23 Litzy Montoya, MELQUIADES [address] [facility], [place] [phone] Registered Nurse Family Medicine 10/28/24 10/30/24 documented as of this encounter
--- OUTSIDE RECORDS SUMMARY | 2024-10-31 12:07 | XMS_ITS | Encounter Summary ---
Author Organization [facility] Address [address] [facility] [address] [place] [address] Care Team Providers Care Protection Consultant Name Role Phone Oz Savage MD Primary Care Provider [phone] Oz Savage MD Unavailable Ltizy Montoya RN Unavailable Encounter Details Date Type Department Care Team (Late st Contact Info) Description 12/15/2022 Abstract [facility] [place] [facility] [address] [facility] 110 [place] [phone] Oz Savage MD [address] [facility] 110 [place] [address] Social History Tobacco Use Types Packs/Day Years [...] 4:15 PM EST Office Visit [facility] Neurology [address] [place] [address] [place] [address] Dakota Forman MD [address] [facility] 111 [place] [address] 01/05/2025 1:15 PM EST Office Visit [facility] 703 [facility] 150 [place] [address] Sandoval Robbins DO 703 [facility] 150 [place] [address] 01/28/2025 2:15 PM EST Procedure Visit [facility] [address] [place] [address] Ariel Lopez, DPM [address] [place], [place] [address] 04/01/2025 11:00 AM EST Office Visit [facility] [place] [facility] [address] [facility] 130 [place] [address] documented as of this encounter Visit Diagnoses Not on filedocumented in this encounter Care Teams Protection Consultant Relationship Specialty Start Date End Date Oz Savage MD [address] [facility] 110 [place] [address] PCP - General Family Medicine 07/25/22 Oz Savage MD [address] [facility] 110 [place] [address] PCP - ACO Reach 04/13/23 Litzy Montoya, RN [address] [place] [address] Registered Nurse Family Medicine 10/28/24 10/30/24 documented as of this encounter
--- OUTSIDE RECORDS SUMMARY | 2024-10-31 12:07 | XMS_ITS | Encounter Summary ---
Author Organization [facility] Address [address] [place] [address] Care Team Providers Care Head Men'S Golf Coach Name Role Phone Oz Savgae MD Primary Care Provider [phone] Oz Savage MD Unavailable Litzy Montoya RN Unavailable [phone] Encounter Details Date Type Department Care Team (Late st Contact Info) Description 07/21/2024 Abstract [facility] [address] [facility] 110 [place] [address] Oz Savage MD [address] [facility] 110 [place], [place] [address] Social History Tobacco Use Types Packs/Day Years Used Date Smoking Tobacco: Never Smokeless Tobacco: Never Alcohol Use Standard Drinks/Week Comments Never 0 (1 standard drink = 0.6 oz pure alcohol) Caffeine Intake: 1-2 cups per day coffee, soda/pop PHQ-2 Answer Date Recorded Patient Health Questionnaire-2 Score 0 07/21/2024 Comments Unknown Sex and Gender Information Value Date Recorded Sex Assigned at Not on file Legal Sex Female 7:15 PM EDT Gender Identity Not on file Sexual Orientation Not on file Occupation Industry Job Start Date Job End Date Not on file Not on file Not on file Not on file documented as of this encounter Functional Status * Over the past 2 weeks, how often have you been bothered by any of the following problems? Question Answer Date of Assessment Author Little interest or pleasure in doing things Not at all 07/21/2024 10:00 AM EDT Litzy Browne MA Feeling down, depressed, or hopeless Not at all 07/21/2024 10:00 AM EDT Litzy Browne MA Patient Health Questionnaire -2 Score 0 07/21/2024 10:00 AM EDT Litzy Browne MA documented as of this encounter Plan of Treatment Upcoming Encounters Date Type Department Care Team (Late st Contact Info) Description 12/16/2024 4:15 PM EST Office Visit [facility] Neurology [address] [facility] 310 [place] [address] Dakota Forman MD 5319 [facility] 111 [place] [address] 01/05/2025 1:15 PM EST Office Visit [facility] 703 [facility] 150 [place] [address] Sandoval Robbins, DO 703 [facility] 150 [place] [address] 01/28/2025 2:15 PM EST Procedure Visit [facility] 1900 [place] [address] Ariel Lopez, DPM 1900 [place] [address] 04/01/2025 11:00 AM EST Office Visit [facility] [place] [facility] 112 [facility] 130 [place] [address] documented as of this encounter Visit Diagnoses Not on filedocumented in this encounter Care Teams Head Men'S Golf Coach Relationship Specialty Start Date End Date Oz Savage MD 112 [facility] 110 [place] [address] PCP - General Family Medicine 07/25/22 Oz Savage MD 112 [facility] 110 [place] [address] PCP - ACO Reach 04/13/23 Litzy Montoya, RN [address] [place] [address] Registered Nurse Family Medicine 10/28/24 10/30/24 documented as of this encounter
--- OUTSIDE RECORDS SUMMARY | 2024-10-31 12:07 | XMS_ITS | Encounter Summary ---
Author Organization [facility] Address [address] [place] [address] Care Team Providers Care Concrete Mixer Operator Name Role Phone Oz Savage MD Primary Care Provider [phone] Oz Savage MD Unavailable Litzy Montoya RN Unavailable [phone] Encounter Details Date Type Department Care Team (Late st Contact Info) Description 11/02/2022 Clinisync Result Encounter NOMS External Department Unsolicited [...] suspected to have Coronavirus/COVID-19? No / Unsure 10/19/2022 2:39 PM EDT documented as of this encounter Plan of Treatment Upcoming Encounters Date Type Department Care Team (Late st Contact Info) Description 12/16/2024 4:15 PM EST Office Visit [facility] Neurology [address] [facility] 310 [place] [address] Dakota Forman MD 5319 [facility] 111 [place] [address] 01/05/2025 1:15 PM EST Office Visit [facility] 703 [facility] 150 [place] [address] Sandoval Robbins DO 703 [facility] 150 [place] [address] 01/28/2025 2:15 PM EST Procedure Visit [facility] [address] [place] [address] Ariel Lopez, DPM 1900 [place], [place] [address] 04/01/2025 11:00 AM EST Office Visit [facility] [place] [facility] 112 [facility] 130 [place] [address] documented as of this encounter Procedures Procedure Name Priority Date/Time Associated Diagnosis Comments CA ECHO DOPPLER COMPLETE 11/02/2022 4:33 PM EDT documented in this encounter Results * CA ECHO DOPPLER COMPLETE (11/02/2022 4:33 PM EDT) Anatomical Region Laterality Modality Other 11/02/2022 4:33 PM EDT Narrative 11/02/2022 4:33 PM EDT [address] [address] Cardiology Report Signed Patient: LILLY HORNE MR#: [id number] : 1950 Acct:[id number] Age/Sex: 72 / F ADM Date: 10/30/22 Loc: [place] Attending Dr: Germania Gonzales M.D. Ordering Physician: Germania Gonzales M.D. Date of Service: 10/30/22 Procedure(s): CA echo doppler complete Accession Number(s): [id number] cc: Patient: LILLY HORNE Exam Date: 10/30/2022 : 1950 Gender:F Ordering : DR GERMANIA GONZALES M.D. Admission #: [id number] Family : Order #: [id number] CLICK HERE TO VIEW EXAM ECHOCARDIOGRAM REPORT PROCEDURE: CA ECHO DOPPLER COMPLETE INDICATIONS: Nonrheumatic mitral valve regurgitation COMPARISON: None. DESCRIPTION: COMPLETE ECHOCARDIOGRAM Real-time transthoracic echocardiography with 2D, M-mode, spectral and color flow Doppler performed. QUALITY: Technical quality was good. LEFT VENTRICLE: Normal chamber size. Normal left ventricular wall thickness. LV EF: Global left ventricular systolic function is mild to moderately reduced; visually estimated ejection fraction is 35 to 40%. The distal two thirds of the septum, the apex and the distal anterolateral tillman are akinetic. DIASTOLIC: Grade I diastolic dysfunction. ATRIAL SEPTUM: Inadequately seen. LEFT ATRIUM: Mild dilatation. RIGHT ATRIUM: Mild dilatation. RIGHT VENTRICLE: Normal chamber size. Normal right ventricular systolic function. TRICUSPID VALVE: Normal mobility and thickness. Mild regurgitation. Mild pulmonary hypertension. RVSP 42mmHg MITRAL VALVE: Normal mobility and thickness. No evidence of mitral valve stenosis. There is no mitral annular calcification. Mild to moderate mitral regurgitation. AORTIC VALVE: Normal trileaflet appearance. Thickened aortic valve. Normal leaflet mobility. No evidence of aortic valve stenosis. Mild aortic regurgitation. AORTIC ROOT: Normal diameter and appearance. PULMONIC VALVE: Normal thickness and mobility. Trivial regurgitation. PERICARDIUM: No evidence of pericardial effusion. IVC: Collapses with inspirations. Normal size. CONCLUSION: 1. Global left ventricular systolic function is mild to moderately reduced; visually estimated ejection fraction is 35 to 40%. Segmental wall motion abnormalities are seen. 2. Grade 1 diastolic dysfunction. 3. Biatrial enlargement. 4. The right ventricle is normal in size and systolic function. 5. Mild tricuspid regurgitation. Mildly elevated right ventricular systolic pressure. 6. Mild to moderate mitral regurgitation. 7. Mild aortic valve regurgitation. Adult Echocardiography Procedure Report Left Ventricle LVEDD (3.7 - 5.6 cm): 4.80 cm LVESD (2.2 - 4.0 cm): 4.00 cm LVIVS thickness (0.6 - 1.2 cm): 0.82 cm LVPW thickness (0.5 - 1.0 cm): 0.84 cm e': 0.08 m/s E - e': 8.34 LVOT Max Gradient: 1.99 mm[Hg] LVOT Area (cm2): 0.71 m/s Peak Velocity (LVOT): 0.71 m/s Mean Velocity (LVOT): 0.52 m/s LVOT Diameter 1.92 cm Left Atrium LA Volume Index (2D A2C): 39.18 ml/m2 Left Atrium Systolic Dimension: 4.18 cm Mitral Valve MV E to A Ratio: 0.70 Mitral Valve A-Wave Peak Velocity: 1.00 m/s Mitral Valve E-Wave Peak Velocity: 0.70 m/s Right Ventricle RV Internal Diastolic Dimension: 3.35 cm Aorta AO Root Diam: 2.89 cm Aortic Valve AoV Area (Peak Kiran): 1.50 cm2, 1.50 cm2 AoV Area (VTI): 1.66 cm2, 1.66 cm2 Deceleration Houghton: 2.01 m/s2 Pressure Half-Time: 594.23 ms Peak Velocity(Antegrade Flow): 1.37 m/s Peak Gradient(Antegrade Flow): 7.50 mm[Hg] Mean Velocity(Antegrade Flow): 1.01 m/s Mean Gradient(Antegrade Flow): 4.59 mm[Hg] Velocity Time Integral: 38.58 cm Tricuspid Valve Peak Velocity (Regurgitant Flow): 3.13 m/s, 2.88 m/s, 2.49 m/s Pulmonic Valve Mean Gradient: 2.40 mm[Hg], 1.78 mm[Hg] Mean Velocity: 0.73 m/s, 0.63 m/s Peak Velocity: 0.95 m/s Peak Gradient: 4.20 mm[Hg], 3.08 mm[Hg] Right Atrium Right Atrium Systolic Pressure: 31.90 ml, 31.90 ml Dictated by: Germania Gonzales M.D. on 11/02/2022 at 16:28 Approved by: Germania Gonzales M.D. on 11/02/2022 at 16:33 Dictated By: Germania Gonzales M.D. Signed By: 11/02/22 1634 DD/ 32 TD/TT: Hand Scraper: Procedure Note Radiology, Radiologist, - 11/02/2022 [place] [address] Cardiology Report Signed Patient: LILLY HORNE LMR#: [id number] : 1950Acct:[id number] Age/Sex: 72 / FADM Date: 10/30/22 Loc: [place] Attending Dr: Germania Gonzales M.D. Ordering Physician: Germania Gonzales M.D. Date of Service: 10/30/22 Procedure(s): CA echo doppler complete Accession Number(s): [id number] cc: Patient: LILLY HORNE Exam Date: 10/30/2022 : 1950 Gender:F Ordering : DR GERMANIA GONZALES M.D. Admission #: [id number] Family : Order #: [id number] CLICK HERE TO VIEW EXAM ECHOCARDIOGRAM REPORT PROCEDURE: CA ECHO DOPPLER COMPLETE INDICATIONS: Nonrheumatic mitral valve regurgitation COMPARISON: None. DESCRIPTION: COMPLETE ECHOCARDIOGRAM Real-time transthoracic echocardiography with 2D, M-mode, spectral and color flow Dopplerperformed. QUALITY: Technical quality was good. LEFT VENTRICLE: Normal chamber size. Normal left ventricular wall thickness. LV EF: Global left ventricular systolic function is mild to moderately reduced; visually estimated ejection fraction is 35 to 40%. The distaltwo thirds of the septum, the apex and the distal anterolateral tillman are akinetic. DIASTOLIC: Grade I diastolic dysfunction. ATRIAL SEPTUM: Inadequately seen. LEFT ATRIUM: Mild dilatation. RIGHT ATRIUM: Mild dilatation. RIGHT VENTRICLE: Normal chamber size. Normal right ventricular systolic function. TRICUSPID VALVE: Normal mobility and thickness. Mild regurgitation.Mild pulmonary hypertension. RVSP 42mmHg MITRAL VALVE: Normal mobility and thickness. No evidence of mitralvalve stenosis. There is no mitral annular calcification. Mild to moderatemitral regurgitation. AORTIC VALVE: Normal trileaflet appearance. Thickened aortic valve. Normal leaflet mobility. No evidence of aortic valve stenosis. Mildaortic regurgitation. AORTIC ROOT: Normal diameter and appearance. PULMONIC VALVE: Normal thickness and mobility. Trivial regurgitation. PERICARDIUM: No evidence of pericardial effusion. IVC: Collapses with inspirations. Normal size. CONCLUSION: 1. Global left ventricular systolic function is mild to moderatelyreduced; visually estimated ejection fraction is 35 to 40%. Segmental wall motion abnormalities are seen. 2. Grade 1 diastolic dysfunction. 3. Biatrial enlargement. 4. The right ventricle is normal in size and systolic function. 5. Mild tricuspid regurgitation. Mildly elevated right ventricularsystolic pressure. 6. Mild to moderate mitral regurgitation. 7. Mild aortic valve regurgitation. Adult Echocardiography Procedure Report Left Ventricle LVEDD (3.7 - 5.6 cm): 4.80 cm LVESD (2.2 - 4.0 cm): 4.00 cm LVIVS thickness (0.6 - 1.2 cm): 0.82 cm LVPW thickness (0.5 - 1.0 cm): 0.84 cm e': 0.08 m/s E - e': 8.34 LVOT Max Gradient: 1.99 mm[Hg] LVOT Area (cm2): 0.71 m/s Peak Velocity (LVOT): 0.71 m/s Mean Velocity (LVOT): 0.52 m/s LVOT Diameter 1.92 cm Left Atrium LA Volume Index (2D A2C): 39.18 ml/m2 Left Atrium Systolic Dimension: 4.18 cm Mitral Valve MV E to A Ratio: 0.70 Mitral Valve A-Wave Peak Velocity: 1.00 m/s Mitral Valve E-Wave Peak Velocity: 0.70 m/s Right Ventricle RV Internal Diastolic Dimension: 3.35 cm Aorta AO Root Diam: 2.89 cm Aortic Valve AoV Area (Peak Kiran): 1.50 cm2, 1.50 cm2 AoV Area (VTI): 1.66 cm2, 1.66 cm2 Deceleration Houghton: 2.01 m/s2 Pressure Half-Time: 594.23 ms Peak Velocity(Antegrade Flow): 1.37 m/s Peak Gradient(Antegrade Flow): 7.50 mm[Hg] Mean Velocity(Antegrade Flow): 1.01 m/s Mean Gradient(Antegrade Flow): 4.59 mm[Hg] Velocity Time Integral: 38.58 cm Tricuspid Valve Peak Velocity (Regurgitant Flow): 3.13 m/s, 2.88 m/s, 2.49 m/s Pulmonic Valve Mean Gradient: 2.40 mm[Hg], 1.78 mm[Hg] Mean Velocity: 0.73 m/s, 0.63 m/s Peak Velocity: 0.95 m/s Peak Gradient: 4.20 mm[Hg], 3.08 mm[Hg] Right Atrium Right Atrium Systolic Pressure: 31.90 ml, 31.90 ml Dictated by: Germania Gonzales M.D. on 11/02/2022 at 16:28 Approved by: Germania Gonzales M.D. on 11/02/2022 at 16:33 Dictated By: Germania Gonzales M.D. Signed By:11/02/22 1634 DD/ 163 TD/TT: Hand Scraper: us Generic External Data Provider [facility] Final Result documented in this encounter Visit Diagnoses Not on filedocumented in this encounter Care Teams Concrete Mixer Operator Relationship Specialty Start Date End Date Oz Savage MD [address] [facility] 110 [place] [address] PCP - General Family Medicine 07/25/22 Oz Savage MD [address] [facility] 110 [place] [address] PCP - ACO Reach 04/13/23 Litzy Montoya, MELQUIADES [address] [place] [address] Registered Nurse Family Medicine 10/28/24 10/30/24 documented as of this encounter
--- OUTSIDE RECORDS SUMMARY | 2024-10-31 12:07 | XMS_ITS | Encounter Summary ---
Author Organization [facility] Address [address] [place] [address] Care Team Providers Care Permit Review Assistant Name Role Phone Oz Savage MD Primary Care Provider [phone] Oz Savage MD Unavailable Litzy Montoya RN Unavailable [phone] Reason for Visit * Reason Comments Med Refill Encounter Details Date Type Department Care Team (Late st Contact Info) Description 01/05/2023 Refill [facility] [place] [facility] 112 [facility] 110 [place] [address] Oz Savage MD 112 [facility] 110 [place], [place] [phone] 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 disorder ; Hypercholesterolemia Social History Tobacco Use Types Packs/Day Years [...] encounter Miscellaneous Notes * Telephone Encounter - iLtzy Browne MA - 01/07/2023 9:16 PM EST Sent in documented in this encounter Plan of Treatment Upcoming Encounters Date Type Department Care Team (Late st Contact Info) Description 12/16/2024 4:15 PM EST Office Visit [facility] [address] [facility] 310 [place] [address] Dakota Forman MD 5303 [facility] 111 [place] [address] 01/05/2025 1:15 PM EST [facility] 703 [facility] 150 [place] [address] Sandoval Robbins, 703 [facility] 150 [place] [address] 01/28/2025 2:15 PM EST Procedure Visit [facility] 1900 [place] [address] Ariel Lopez, DPWilmar 1900 [place] [address] 04/01/2025 11:00 AM EST Office Visit [facility] [place] [facility] 112 [facility] 130 [place] [address] documented as of this encounter Visit Diagnoses Diagnosis 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 disorder Hypercholesterolemia Pure hypercholesterolemia documented in this encounter Care Teams Permit Review Assistant Relationship Specialty Start Date End Date Oz Savage MD 112 [place] [facility] 110 [place] [address] PCP - General Family Medicine 07/25/22 Oz Savage MD [address] [facility] 110 [place] [address] PCP - ACO Reach 04/13/23 Litzy Montoya, RN [address] [place] [address] Registered Nurse Family Medicine 10/28/24 10/30/24 documented as of this encounter
--- OUTSIDE RECORDS SUMMARY | 2024-10-31 12:07 | XMS_ITS | Encounter Summary ---
Author Organization [facility] Address [address] [facility] [place] [address] Care Team Providers Care Coil Winding Machines Set Up Mechanic Name Role Phone Oz Savage MD Primary Care Provider [phone] Oz Savage MD Unavailable Litzy Montoya RN Unavailable Encounter Details Date Type Department Care Team (Late Contact Info) Description 11/01/2022 Abstract [facility] [place] [facility] [address] [facility] 110 [place] [phone] Oz Savage MD 112 [facility] 110 [place], [place] [address] Social History Tobacco Use Types Packs/Day Years [...] 12/16/2024 4:15 PM EST Office Visit [facility] [place] [facility] [address] [facility] 310 [place] [address] Dakota Forman MD 5318 [facility] 111 [place] [address] 01/05/2025 1:15 PM EST Office Visit [facility] 703 [facility] 150 [place] [address] Sandoval Robbins, 703 [facility] 150 [place] [address] 01/28/2025 2:15 PM EST Procedure Visit [facility] 1900 [place] [address] Ariel Lopez DPWilmar 1900 [place] [address] 04/01/2025 11:00 AM EST Office Visit [facility] [place] [facility] [address] [facility] 130 [place] [address] documented as of this encounter Visit Diagnoses Not on filedocumented in this encounter Care Teams Coil Winding Machines Set Up Mechanic Relationship Specialty Start Date End Date Oz Savage MD 112 [facility] 110 [place] [address] PCP - General Family Medicine 07/25/22 Oz Savage MD 112 [facility] 110 [place] [address] PCP - ACO Reach 04/13/23 Litzy Montoya, RN [address] [place] [address] Registered Nurse Family Medicine 10/28/24 10/30/24 documented as of this encounter
--- OUTSIDE RECORDS SUMMARY | 2024-10-31 12:07 | XMS_ITS | Encounter Summary ---
Author Organization [facility] Address [address] [facility] [place] [address] Care Team Providers Care Mains And Service Supervisor Name Role Phone Oz Savage MD Unavailable Oz Savage MD Primary Care Provider Oz Savage MD Unavailable Litzy Montoya RN Unavailable [phone] Encounter Details Date Type Department Care Team (Late st Contact Info) Description 08/13/2019 Abstract [facility] [address] [facility] [place] [address] Yanni Ortiz, [facility] [address] [facility] [place] [address] Social History Tobacco Use Types Packs/Day Years [...] 4:15 PM EST Office Visit [facility] Neu[facility] [address] [place] [address] [place] [address] Dakota Forman MD 5319 [facility] 111 [place] [address] 01/05/2025 1:15 PM EST Office Visit [facility] 703 [facility] 150 [place] [address] Sandoval Robbins DO 703 [facility] 150 [place] [address] 01/28/2025 2:15 PM EST Procedure Visit [facility] [address] [place] [address] Ariel Lopez, DPM 1900 [place], [place] [address] 04/01/2025 11:00 AM EST Office Visit [facility] [place] [facility] 112 [address] [facility] 130 [place] [address] documented as of this encounter Visit Diagnoses Not on filedocumented in this encounter Care Teams Mains And Service Supervisor Relationship Specialty Start Date End Date Oz Savage MD 112 [facility] 110 [place] [address] PCP - MSSP ACO Attributed Provider 11/12/21 02/10/22 Oz Savage MD 112 [facility] 110 [place] [address] PCP - General Family Medicine 07/25/22 Oz Savage MD 112 [facility] 110 [place] [address] PCP - ACO Reach 04/13/23 Litzy Montoya, RN [address] [facility] [place] [address] Registered Nurse Family Medicine 10/28/24 10/30/24 documented as of this encounter
--- OUTSIDE RECORDS SUMMARY | 2024-10-31 12:07 | XMS_ITS | Encounter Summary ---
Author Organization [facility] Address [address] [facility] [place] [address] Care Team Providers Care Medical Numerical Control Operator Name Role Phone Oz Savage MD Primary Care Provider [phone] Oz Savage MD Unavailable Litzy Montoya RN Unavailable Encounter Details Date Type Department Care Team (Late Contact Info) Description 11/06/2022 Abstract [facility] [place] [facility] [address] [facility] 110 [place] [address] Oz Savage MD 112 [place] [facility] 110 [place], [place] [address] Social History Tobacco Use Types Packs/Day Years [...] 12/16/2024 4:15 PM EST Office Visit [facility] [place] [facility] [address] [facility] 310 [place] [address] Dakota Forman MD 5368 [facility] 111 [place] [address] 01/05/2025 1:15 PM EST Office Visit [facility] 703 [facility] 150 [place] [address] Sandoval Robbins, 703 [facility] 150 [place] [address] 01/28/2025 2:15 PM EST Procedure Visit [facility] 1900 [place] [address] Ariel Lopez DPWilmar 1900 [place] [address] 04/01/2025 11:00 AM EST Office Visit [facility] [place] [facility] [address] [facility] 130 [place] [address] documented as of this encounter Visit Diagnoses Not on filedocumented in this encounter Care Teams Medical Numerical Control Operator Relationship Specialty Start Date End Date Oz Savage MD 112 [place] [facility] 110 [place] [address] PCP - General Family Medicine 07/25/22 Oz Savage MD [address] [place] [facility] 110 [place] [address] PCP - ACO Reach 04/13/23 Litzy Montoya, RN [address] [place] [address] Registered Nurse Family Medicine 10/28/24 10/30/24 documented as of this encounter
--- OUTSIDE RECORDS SUMMARY | 2024-10-31 12:07 | XMS_ITS | Clinical Summary ---
Author Organization [facility] Address [address], [address] [place] [address] Care Team Providers Care Spool Maker Name Role Phone Oz Savage MD Primary Care Provider [phone] Allergies No known active allergies Social History Tobacco Use Types Packs/Day Years Used Date Smoking Tobacco: Never Assessed Comments Unknown Sex and Gender Information Value Date Recorded Sex Assigned at Not on file Legal Sex Female 3:32 PM EST Gender Identity Not on file Sexual Orientation Not on file Plan of Treatment Not on file Care Teams Spool Maker Relationship Specialty Start Date End Date Oz Savage MD PCP - General 02/24/13
--- OUTSIDE RECORDS SUMMARY | 2024-10-31 12:07 | XMS_ITS | Encounter Summary ---
Author Organization [facility] Address [address] [place] [address] Care Team Providers Care Farm Helper Name Role Phone Oz Schilling MD Primary Care Provider [phone] Oz Schilling MD Unavailable Litzy Montoya RN Unavailable [phone] Encounter Details Date Type Department Care Team (Late st Contact Info) Description 10/31/2022 Clinisync Result Encounter NOMS External Department Unsolicited [...] 4:15 PM EST Office Visit [facility] [place] [facility] Neurology [address] [facility] 310 [place] [address] Dakota Forman MD 5319 [facility] 111 [place] [address] 01/05/2025 1:15 PM EST Office Visit [facility] 703 [facility] 150 [place] [address] Sandoval Robbins DO 703 [facility] 150 [place] [address] 01/28/2025 2:15 PM EST Procedure Visit [facility] 1900 [place] [address] Ariel Lopez, DPM 1900 [place], [place] [address] 04/01/2025 11:00 AM EST Office Visit [facility] [place] [facility] 112 [facility] 130 [place] [address] documented as of this encounter Procedures Procedure Name Priority Date/Time Associated Diagnosis Comments NM JESSE PERF SPECT REST STR 10/31/2022 12:26 PM EDT documented in this encounter Results * NM JESSE PERF SPECT REST STR (10/31/2022 12:26 PM EDT) Anatomical Region Laterality Modality Other 10/31/2022 12:2 6 PM EDT Narrative 10/31/2022 12:26 PM EDT The [address] [address] Nuclear Medicine Report Signed Patient: LILLY HORNE MR#: [id number] : 1950 Acct:[id number] Age/Sex: 72 / F ADM Date: 10/30/22 Loc: [place] Attending Dr: Germania Gonzales M.D. Ordering Physician: Germania Gonzales M.D. Date of Service: 10/30/22 Procedure(s): NM jesse perf SPECT rest str Accession Number(s): [id number] cc: OZ SCHILLING ; Germania Gonzales M.D. Patient: LILLY HORNE Exam Date: 10/30/2022 : 1950 Gender:F Ordering : DR GERMANIA GONZALES M.D. Admission #: [id number] Family : DR OZ SCHILLING M.D. Order #: [id number] CLICK HERE TO VIEW EXAM RADIOLOGY REPORT PROCEDURE: NM JESSE PERF SPECT REST STR COMPARISON: None. INDICATIONS: NONRHEUMATIC MITRAL VALVE REGURGITATION TECHNIQUE: Exam Description: Stress/Rest one day protocol gated SPECT Rest Imagin.9 mCi Tc-99m Cardiolite IV on 10/30/2022 Stress Imaging 29.9 mCi Tc-99m Cardiolite IV on 10/30/2022 Exercise Protocol: 0.4 mg Lexiscan given IV Heart Rate (bpm): Rest: 68 Max: 85 PMHR: 57 Blood Pressure: Rest: 148/80 Max: 148/80 Symptoms: Rest and peak stress ECG findings were (unknown) and the exercise portion of the study was (unknown) per attending physician (Unknown) . For more details please see separate cardiac stress test report. FINDINGS: QUALITY OF STUDY: Good. PERFUSION DEFECT: LOCATION: Mid-anterior. Apical anterior. Apical septal. Apical inferior. Apical lateral. [place]. SIZE: Large (5 or more segments). SEVERITY: Severe. TYPE: Persistent. WALL MOTION: Dyskinesis: Apical anterior. Apical septal. Apical inferior. Apical lateral. [place]field. LV SIZE: Normal. 122 mL. TID / TCD: None; 1.0 LVEF: Abnormal. Calculated EF 41%. SUMMARY: Myocardial perfusion imaging study has ABNORMAL findings. CONCLUSION: 1. No acute or reversible ischemia. 2. Large areas of fixed restricted perfusion involving the anterior wall and predominately the apex. 3. Abnormal dyskinesia of the apically tillman. 4. Abnormal, low ejection fraction 41%. Dictated by: Mike Astudillo M.D. on 10/31/2022 at 12:13 Approved by: Mike Astudillo M.D. on 10/31/2022 at 12:26 Dictated By: Mike Astudillo M.D. Signed By: 10/31/22 1227 DD/ 1226 TD/TT: Director Facilities Maintenance: Procedure Note Radiology, Radiologist, MD - 11/03/2022 [place] [address] Nuclear Medicine Report Signed Patient: LILLY HORNE LMR#: [id number] : 1950Acct:[id number] Age/Sex: 72 / FADM Date: 10/30/22 Loc: [place] Attending Dr: Germania Gonzales M.D. Ordering Physician: Germania Gonzales M.D. Date of Service: 10/30/22 Procedure(s): NM jesse perf SPECT rest str Accession Number(s): [id number] cc: OZ SCHILLING ; Germania Gonzales M.D. Patient: LILLY HORNE Exam Date: 10/30/2022 : 1950 Gender:F Ordering : DR GERMANIA GONZALES M.D. Admission #: [id number] Family : DR OZ SCHILLING M.D. Order #: [id number] CLICK HERE TO VIEW EXAM RADIOLOGY REPORT PROCEDURE: NM JESSE PERF SPECT REST STR COMPARISON: None. INDICATIONS: NONRHEUMATIC MITRAL VALVE REGURGITATION TECHNIQUE: Exam Description: Stress/Rest one day protocol gated SPECT Rest Imagin.9 mCi Tc-99m Cardiolite IV on 10/30/2022 Stress Imaging 29.9 mCi Tc-99m Cardiolite IV on 10/30/2022 Exercise Protocol: 0.4 mg Lexiscan given IV Heart Rate (bpm): Rest: 68 Max: 85 PMHR: 57 Blood Pressure: Rest: 148/80 Max: 148/80 Symptoms: Rest and peak stress ECG findings were (unknown) and the exercise portionof the study was (unknown) per attending physician (Unknown) . For more details please see separate cardiac stress test report. FINDINGS: QUALITY OF STUDY: Good. PERFUSION DEFECT: LOCATION: Mid-anterior. Apical anterior. Apical septal. Apical inferior. Apical lateral. [place]field. SIZE: Large (5 or more segments). SEVERITY: Severe. TYPE: Persistent. WALL MOTION: Dyskinesis: Apical anterior. Apical septal. Apicalinferior. Apical lateral. [place]. LV SIZE: Normal. 122 mL. TID / TCD: None; 1.0 LVEF: Abnormal. Calculated EF 41%. SUMMARY: Myocardial perfusion imaging study has ABNORMAL findings. CONCLUSION: 1. No acute or reversible ischemia. 2. Large areas of fixed restricted perfusion involving the anterior walland predominately the apex. 3. Abnormal dyskinesia of the apically tillman. 4. Abnormal, low ejection fraction 41%. Dictated by: Mike Astudlilo M.D. on 10/31/2022 at 12:13 Approved by: Mike Astudillo M.D. on 10/31/2022 at 12:26 Dictated By: Mike Astudillo M.D. Signed By:10/31/22 1227 DD/ 1226 TD/TT: Director Facilities Maintenance: Generic External Data Provider [facility] Final Result documented in this encounter Visit Diagnoses Not on filedocumented in this encounter Care Teams Farm Helper Relationship Specialty Start Date End Date Oz Schilling MD [address] [facility] 110 [place] [address] PCP - General Family Medicine 07/25/22 Oz Schilling MD [address] [address] PCP - ACO Reach 04/13/23 Litzy Montoya, MELQUIADES [address] [facility] [place] [address] Registered Nurse Family Medicine 10/28/24 10/30/24 documented as of this encounter
--- OUTSIDE RECORDS SUMMARY | 2024-10-31 12:07 | XMS_ITS | Encounter Summary ---
Author Organization [facility] Address [address] [place] [address] Care Team Providers Care Ring Rolling Machine Operator Name Role Phone Oz Savage MD Primary Care Provider Oz Savage MD Unavailable Litzy Montoya RN Unavailable Encounter Details Date Type Department Care Team (Late st Contact Info) Description 12/26/2022 Abstract [facility] [place] [facility] [address] [facility] 110 [place] [phone] Oz Savage MD [address] [facility] 110 [place] [address] Social History Tobacco Use Types Packs/Day Years [...] 4:15 PM EST Office Visit [facility] [place] [facility] Neurology [address] [place] 310 [place] [address] Dakota Forman MD 5319 [facility] 111 [place] [address] 01/05/2025 1:15 PM EST Office Visit [facility] 703 [facility] 150 [place] [address] Sandoval Robbins DO 703 [facility] 150 [place] [address] 01/28/2025 2:15 PM EST Procedure Visit [facility] [address] [place] [address] Ariel Lopez, DPM [address] [place], [place] [address] 04/01/2025 11:00 AM EST Office Visit [facility] [place] [facility] [address] [facility] 130 [place] [address] documented as of this encounter Visit Diagnoses Not on filedocumented in this encounter Care Teams Ring Rolling Machine Operator Relationship Specialty Start Date End Date Oz Savage MD [address] [facility] 110 [place] [address] PCP - General Family Medicine 07/25/22 Oz Savage MD [address] [facility] 110 [place] [address] PCP - ACO Reach 04/13/23 Litzy Montoya, RN [address] [place] [address] Registered Nurse Family Medicine 10/28/24 10/30/24 documented as of this encounter
--- OUTSIDE RECORDS SUMMARY | 2024-10-31 12:07 | XMS_ITS | Encounter Summary ---
Author Organization [facility] Address [address] [place] [address] Care Team Providers Care Head Of Housekeeping Name Role Phone Oz Savage MD Primary Care Provider [phone] Oz Savage MD Unavailable Litzy Montoya RN Unavailable [phone] Encounter Details Date Type Department Care Team (Late st Contact Info) Description 05/10/2023 Abstract [facility] [place] [facility] [address] [facility] 110 [place] [address] Oz Savage MD [address] [facility] 110 [place] [address] Social History Tobacco Use Types Packs/Day Years [...] [address] [place] [address] Dakota Forman MD 0860 [facility] 111 [place] [address] 01/05/2025 1:15 PM EST Office Visit [facility] 703 [facility] 150 [place] [address] Sandoval Robbins, 703 [facility] 150 [place] [address] 01/28/2025 2:15 PM EST Procedure Visit [facility] [address] [place] [address] Ariel Lopez, DPWilmar 1900 [place] [address] 04/01/2025 11:00 AM EST Office Visit [facility] [place] [facility] [address] [facility] 130 [place] [address] documented as of this encounter Visit Diagnoses Not on filedocumented in this encounter Care Teams Head Of Housekeeping Relationship Specialty Start Date End Date Oz Savage MD [address] [facility] 110 [place] [address] PCP - General Family Medicine 07/25/22 Oz Savage MD [address] [facility] 110 [place] [address] PCP - ACO Reach 04/13/23 Litzy Montoya, RN [address] [facility] [place] [place] [address] Registered Nurse Family Medicine 10/28/24 10/30/24 documented as of this encounter
--- OUTSIDE RECORDS SUMMARY | 2024-10-31 12:07 | XMS_ITS | Encounter Summary ---
Author Organization [facility] Address [address] [place] [address] Care Team Providers Care Knife Sharpener Name Role Phone Oz Savage MD Primary Care Provider [phone] Oz Savage MD Unavailable Litzy Montoya RN Unavailable [phone] Encounter Details Date Type Department Care Team (Late st Contact Info) Description 08/26/2024 Abstract [facility] 1900 [place] [address] Ariel Lopez DPM 1900 [place], [place] [phone] Social History Tobacco Use Types Packs/Day Years [...] [facility] [address] [facility] 310 [place] [address] Dakota Forman MD 5331 [facility] 111 [place] [address] 01/05/2025 1:15 PM EST Office Visit [facility] 703 [facility] 150 [place] [address] Sandoval Robbins DO 703 [facility] 150 [place] [address] 01/28/2025 2:15 PM EST Procedure Visit [facility] 1900 [place] [address] Ariel oLpez DPWilmar 1900 [place] [address] 04/01/2025 11:00 AM EST Office Visit [facility] [place] [facility] 112 [facility] 130 [place] [address] documented as of this encounter Visit Diagnoses Not on filedocumented in this encounter Care Teams Knife Sharpener Relationship Specialty Start Date End Date Oz Savage MD 112 [facility] 110 [place] [address] PCP - General Family Medicine 07/25/22 Oz Savage MD [address] [facility] 110 [place] [address] PCP - ACO Reach 04/13/23 Litzy Montoya, RN [address] [place] [address] Registered Nurse Family Medicine 10/28/24 10/30/24 documented as of this encounter
--- OUTSIDE RECORDS SUMMARY | 2024-10-31 12:07 | XMS_ITS | Encounter Summary ---
Author Organization [facility] Address [address] [place] [address] Care Team Providers Care Satellite Technician Name Role Phone Oz Savage MD Primary Care Provider Oz Savage MD Unavailable Litzy Montoya RN Unavailable [phone] Encounter Details Date Type Department Care Team (Late st Contact Info) Description 07/27/2022 Abstract [facility] [place] [facility] [address] [facility] 110 [place] [address] Oz Savage MD [address] [facility] 110 [place] [address] Social History Tobacco Use Types Packs/Day Years [...] 4:15 PM EST Office Visit [facility] [place] [facility] Neurology [address] [place] [address] Dakota Forman MD 5319 [facility] 111 [place] [address] 01/05/2025 1:15 PM EST Office Visit [facility] 703 [facility] 150 [place] [address] Sandoval Robbins DO 703 [facility] 150 [place] [address] 01/28/2025 2:15 PM EST Procedure Visit [facility] [address] [place] [address] Ariel Lopez, DPM [address] [place] [address] [place], [place] [address] 04/01/2025 11:00 AM EST Office Visit [facility] [place] [facility] [address] [facility] 130 [place] [address] documented as of this encounter Visit Diagnoses Not on filedocumented in this encounter Care Teams Satellite Technician Relationship Specialty Start Date End Date Oz Savage MD [address] [facility] 110 [place] [address] PCP - General Family Medicine 07/25/22 Oz Savage MD [address] [facility] 110 [place] [address] PCP - ACO Reach 04/13/23 Litzy Montoya, MELQUIADES [address] [facility] [place] [address] Registered Nurse Family Medicine 10/28/24 10/30/24 documented as of this encounter
--- OUTSIDE RECORDS SUMMARY | 2024-10-31 12:07 | XMS_ITS | Encounter Summary ---
Author Organization [facility] Address [address] [facility] [place] [address] Care Team Providers Care Retail Advisor Name Role Phone Oz Savage MD Primary Care Provider [phone] Oz Savage MD Unavailable Encounter Details Date Type Department Care Team (Latest Contact Info) Description 10/21/2024 Travel Social History Tobacco Use Types Packs/Day [...] 4:15 PM EST Office Visit [facility] [place] [facility] Neurology [address] [facility] 310 [place] [address] Dakota Forman MD [address] [facility] [address] [place] 111 [place], [place] [address] 01/05/2025 1:15 PM EST Office Visit [facility] 703 [facility] 150 [place] [address] Sandoval Robbins DO 703 [facility] 150 [place] [address] 01/28/2025 2:15 PM EST Procedure Visit [facility] [address] [place] [address] Ariel Lopez, DPM 1900 [place] [address] 04/01/2025 11:00 AM EST Office Visit [facility] [place] [facility] [address] [facility] 130 [place] [address] documented as of this encounter Visit Diagnoses Not on filedocumented in this encounter Care Teams Retail Advisor Relationship Specialty Start Date End Date Oz Savage MD [address] [facility] 110 [place] [address] PCP - General Family Medicine 07/25/22 Oz Savage MD [address] [facility] 110 [place] [address] PCP - ACO Reach 04/13/23 documented as of this encounter
--- OUTSIDE RECORDS SUMMARY | 2024-10-31 12:07 | XMS_ITS | Encounter Summary ---
Author Organization [facility] Address [address] [place] [address] Care Team Providers Care Green Chain Offbearer Name Role Phone Oz Savage MD Primary Care Provider [phone] Oz Savage MD Unavailable Litzy Montoya RN Unavailable [phone] Encounter Details Date Type Department Care Team (Late st Contact Info) Description 11/21/2022 External Result Encounter NOMS External Department Unsolicited Sandoval Robbins, DO 703 [facility] 150 [place] [address] Social History Tobacco Use Types Packs/Day Years [...] Encounters Date Type Department Care Team (Late Contact Info) Description 12/16/2024 4:15 PM EST Office Visit [facility] [place] [facility] Neurology [address] [facility] 310 [place] [address] Dakota Forman MD 5319 [facility] 111 [place] [address] 01/05/2025 1:15 PM EST Office [facility] 703 [facility] 150 [place] [address] Sandoval Robbins DO 703 [facility] 150 [place] [address] 01/28/2025 2:15 PM EST Procedure Visit [facility] [address] [place] [address] Ariel Lopez, DPM [address] [facility] [place], [place] [address] 04/01/2025 11:00 AM EST Office Visit [facility] [place] [facility] 112 [facility] 130 [place] [address] documented as of this encounter Procedures Procedure Name Priority Date/Time Associated Diagnosis Comments BI MAMMOGRAM DIAGNOSTIC BILATERAL 11/21/2022 11:21 AM EDT documented in this encounter Results * Bilateral diagnostic mammogram (11/21/2022 11:21 AM EDT) Anatomical Region Laterality Modality Breast Bilateral Mammography 11/21/2022 11:2 1 AM EDT Impressions 01/02/2023 8:06 AM EST NO MAMMOGRAPHIC EVIDENCE OF MALIGNANCY. ROUTINE FOLLOW-UP [...] Vanessa Alva M.D.11/21/2022 11:28 AM Dictation Location: DW01 Transcribed By: AZEB 11/21/22 1128 Dictated By: Vanessa Alva MD 11/21/22 1121 Signed By: <Electronically signed by MD Vanessa Alva in OV> 11/21/22 1128 Narrative 01/02/2023 8:06 AM EST [facility] Main [place] [id number] Mammography Report Signed Patient: Lilly Mckeon MR#: [id number] : 1950 Acct:[id number] Age/Sex: 72 / F ADM Date: 11/21/22 Loc: [place] Room: Type: REG CLI Attending Dr: Sandoval Robbins DO Copies to: DO Oz Pollock MD Ordering Provider: Sandoval Robbins DO Date of Service: 11/21/22 MM/MM diagnostic [...] w/CAD Procedure Note Radiology, Radiologist, MD - 01/02/2023 [facility] Main [address] [address] Mammography Report Signed Patient: Lilly Mckeon LMR#: [id number] : 1950Acct:[id number] Age/Sex: 72 / FADM Date: 11/21/22 Loc: [place] Room:Type: REG CLI Attending Dr: Sandoval Robbins DO Copies to: DO Oz Pollock MD Ordering Provider: Sandoval Robbins DO Date of Service: 11/21/22 MM/MM diagnostic mammo BI w/CAD: Z85.3 CLINICAL DATA: History of right breast adenoid cystic carcinoma. BILATERAL DIAGNOSTIC MAMMOGRAMS - FULL FIELD DIGITAL WITH TOMOSYNTHESISAND CAD Tomosynthesis craniocaudal and mediolateral oblique views of both breastswere obtained using low- dose digital technique. Comparison is made to prior studies from 2020 through October 21, 2021). This examination was reviewed with the aid of CAD. There are scattered fibroglandular densities. Postoperative scarring andBiozorb are again visualized at the central mid and posterior right breast. Benign andvascular calcifications are visualized. There are no developing masses, typically malignantcalcifications or architectural distortion. There has been no [...] thenext mammogram. Impression dictated by: Vanessa Alva M.D.11/21/2022 11:28 AM Dictation Location: [facility] Transcribed By: [facility] 11/21/22 1128 Dictated By: Vanessa Alva MD 11/21/22 1121 Signed By: <Electronically signed by MD Vanessa Alva in OV> 11/21/22 1128 us Sandoval Robbins DO IMG BI PROCEDURES Final R esult documented in this encounter Visit Diagnoses Not on filedocumented in this encounter Care Teams Green Chain Offbearer Relationship Specialty Start Date End Date Oz Savage MD [address] [address] PCP - General Family Medicine 07/25/22 Oz Savage MD 112 [facility] 110 [place] [address] PCP - ACO Reach 04/13/23 Litzy Montoya, RN [address] [place] [address] Registered Nurse Family Medicine 10/28/24 10/30/24 documented as of this encounter
--- OUTSIDE RECORDS SUMMARY | 2024-10-31 12:07 | XMS_ITS | Encounter Summary ---
Author Organization [facility] Address [address] [place] [address] Care Team Providers Care Process Trainer Name Role Phone Oz Savage MD Primary Care Provider [phone] Oz Savage MD Unavailable Encounter Details Date Type Department Care Team (Late st Contact Info) Description 10/22/2024 Bamboo flowsheet [facility] 1900 [place] [address] Ariel Lopez, DPM 1900 [place], [place] [phone] Social History Tobacco Use Types Packs/Day Years [...] 12/16/2024 4:15 PM EST Office Visit [facility] [place] [facility] [address] [facility] 310 [place] [address] Dakota Forman MD 0953 [facility] 111 [place] [address] 01/05/2025 1:15 PM EST [facility] 703 [facility] 150 [place] [address] Sandoval Robbins, 703 [facility] 150 [place] [address] 01/28/2025 2:15 PM EST Procedure Visit [facility] [address] [place] [address] Ariel Lopez, DPM [address] [place] [address] 04/01/2025 11:00 AM EST Office Visit [facility] [place] [facility] [address] [facility] 130 [place] [address] documented as of this encounter Visit Diagnoses Not on filedocumented in this encounter Care Teams Process Trainer Relationship Specialty Start Date End Date Oz Savage MD [address] [facility] 110 [place] [address] PCP - General Family Medicine 07/25/22 Oz Savage MD [address] [facility] 110 [place] [address] PCP - ACO Reach 04/13/23 documented as of this encounter
--- OUTSIDE RECORDS SUMMARY | 2024-10-31 12:07 | XMS_ITS | Encounter Summary ---
Author Organization [facility] Address [address] [facility] [place] [address] Care Team Providers Care Utility Worker Forge Name Role Phone Oz Savage MD Primary Care Provider Oz Savage MD Unavailable Litzy Montoya RN Unavailable Encounter Details Date Type Department Care Team (Late st Contact Info) Description 07/21/2024 Abstract [facility] [place] [facility] [address] [facility] 110 [place] [phone] Oz Savage MD [address] [facility] 110 [place], [place] [id number] Social History Tobacco Use Types Packs/Day Years [...] 4:15 PM EST Office Visit [facility] [place] [facility] [address] [facility] 310 [place] [address] Dakota Forman MD 5319 [facility] 111 [place] [address] 01/05/2025 1:15 PM EST Office Visit [facility] 703 [facility] 150 [place] [address] Sandoval Robbins, DO 703 [facility] 150 [place] [address] 01/28/2025 2:15 PM EST Procedure Visit [facility] 1900 [place] [address] Ariel Lopez, DPM 1900 [place] [address] 04/01/2025 11:00 AM EST Office Visit [facility] [place] [facility] 112 [facility] 130 [place] [address] documented as of this encounter Visit Diagnoses Not on filedocumented in this encounter Care Teams Utility Worker Forge Relationship Specialty Start Date End Date Oz Savage MD 112 [facility] 110 [place] [address] PCP - General Family Medicine 07/25/22 Oz Savage MD 112 [facility] 110 [place] [address] PCP - ACO Reach 04/13/23 Litzy Montoya, RN [address] [place] [address] Registered Nurse Family Medicine 10/28/24 10/30/24 documented as of this encounter
--- OUTSIDE RECORDS SUMMARY | 2024-10-31 12:07 | XMS_ITS | Encounter Summary ---
Author Organization [facility] Address [address] [facility] [place] [address] Care Team Providers Care Fitness Manager Name Role Phone Oz Savage MD Primary Care Provider Oz Savage MD Unavailable Litzy Montoya RN Unavailable Encounter Details Date Type Department Care Team (Late st Contact Info) Description 07/22/2024 Results Follow-Up [facility] [address] [facility] 110 [place] [address] Oz Savage MD 112 [facility] 110 [place] [address] CBC and differential, Comprehensive metabolic panel, Lipid panel, Additional followed-up results: 2 Social History Tobacco Use Types Packs/Day [...] encounter Miscellaneous Notes * Telephone Encounter - LOURDES DANG - 07/22/2024 3:56 PM EDT Lm for pt to CB * Telephone Encounter - LOURDES DANG - 07/22/2024 3:56 PM EDT ----- Message from Dr. Oz Savage sent at 07/22/2024 3:29 PM EDT ----- TSH and Lipids were del. She has the renal insufficiency which is stable ----- Message ----- From: Litzy Browne MA Sent: 07/21/2024 10:59 AM EDT To: Oz Savage MD documented in this encounter Plan of Treatment Upcoming Encounters Date Type Department Care Team (Late st Contact Info) Description 12/16/2024 4:15 PM EST Office Visit [facility] [place] [facility] [address] [facility] 310 [place] [address] Dakota Forman MD 2576 [facility] 111 [place], [place] [address] 01/05/2025 1:15 PM EST Office Visit [facility] 703 [facility] 150 [place] [address] Sandoval Robbins DO 703 [facility] 150 [place] [address] 01/28/2025 2:15 PM EST Procedure Visit [facility] [address] [place] [address] Ariel Lopez DPM [address] [place], [place] [address] 04/01/2025 11:00 AM EST Office Visit [facility] [place] [facility] [address] [place] 130 [place] [address] documented as of this encounter Visit Diagnoses Not on filedocumented in this encounter Care Teams Fitness Manager Relationship Specialty Start Date End Date Oz Savage MD [address] [place] 110 [place] [address] PCP - General Family Medicine 07/25/22 Oz Savage MD [address] [place] 110 [place], [place] [phone] PCP - ACO Reach 04/13/23 Litzy Montoya, RN [address] [place], [place] [address] Registered Nurse Family Medicine 10/28/24 10/30/24 documented as of this encounter
--- OUTSIDE RECORDS SUMMARY | 2024-10-31 12:07 | XMS_ITS | Encounter Summary ---
Author Organization [facility] Address [address] [place] [address] Care Team Providers Care Nursery School Teacher Name Role Phone Oz Savage MD Primary Care Provider [phone] Oz Savage MD Unavailable Litzy Montoya RN Unavailable [phone] Encounter Details Date Type Department Care Team (Late st Contact Info) Description 08/27/2024 Abstract [facility] [address] [place] [address] Yanni Ortiz, [facility] [address] [place] [address] Social History Tobacco Use Types Packs/Day Years [...] [facility] [address] [place] 310 [place] [address] Dakota Forman MD 2535 [facility] 111 [place] [address] 01/05/2025 1:15 PM EST Office Visit [facility] 703 [facility] 150 [place] [address] Sandoval Robbins DO 703 [facility] 150 [place] [address] 01/28/2025 2:15 PM EST Procedure Visit [facility] 1900 [place] [address] Ariel Lopez DPWilmar 1900 [place] [address] 04/01/2025 11:00 AM EST Office Visit [facility] [place] [facility] [address] [facility] 130 [place] [address] documented as of this encounter Visit Diagnoses Not on filedocumented in this encounter Care Teams Nursery School Teacher Relationship Specialty Start Date End Date Oz Savage MD [address] [place] 110 [place] [address] PCP - General Family Medicine 07/25/22 Oz Savage MD [address] [place] 110 [place] [address] PCP - ACO Reach 04/13/23 Litzy Montoya, RN [address] [place] [address] Registered Nurse Family Medicine 10/28/24 10/30/24 documented as of this encounter
--- OUTSIDE RECORDS SUMMARY | 2024-10-31 12:08 | XMS_ITS | Encounter Summary ---
Author Organization [facility] Address [address] [facility] [place] [address] Care Team Providers Care Exhibition Carver Name Role Phone Oz Savage MD Primary Care Provider Oz Savage MD Unavailable Litzy Montoya RN Unavailable [phone] Encounter Details Date Type Department Care Team (Late Contact Info) Description 01/23/2024 Abstract [facility] [place] [facility] [address] [facility] 110 [place] [address] Oz Savage MD [address] [facility] 110 [place], [place] [phone] Social History Tobacco Use Types Packs/Day Years [...] 12/16/2024 4:15 PM EST Office Visit [facility] [place] [facility] [address] [facility] 310 [place] [address] Dakota Forman MD 5398 [facility] 111 [place] [address] 01/05/2025 1:15 PM EST Office Visit [facility] 703 [facility] 150 [place] [address] Sandoval Robbins, 703 [facility] 150 [place] [address] 01/28/2025 2:15 PM EST Procedure Visit [facility] 1900 [place] [address] Ariel Lopez DPWilmar 1900 [place] [address] 04/01/2025 11:00 AM EST Office Visit [facility] [place] [facility] [address] [facility] [facility] 130 [place] [address] documented as of this encounter Visit Diagnoses Not on filedocumented in this encounter Care Teams Exhibition Carver Relationship Specialty Start Date End Date Oz Savage MD [address] [facility] 110 [place] [address] PCP - General Family Medicine 07/25/22 Oz Savage MD [address] [facility] 110 [place] [address] PCP - ACO Reach 04/13/23 Litzy Montoya, RN [address] [place] [address] Registered Nurse Family Medicine 10/28/24 10/30/24 documented as of this encounter
--- OUTSIDE RECORDS SUMMARY | 2024-10-31 12:08 | XMS_ITS ---
Author Organization [facility] Address [address] [place] [address] Care Team Providers Care Reheater Helper Name Role Phone Oz Savage MD Primary Care Provider [phone] Oz Savage MD Unavailable Chronic Care Management (CCM) Status:Closed (Closed) Start date:10/28/2024 End date:10/30/2024 Close reason:Unable to reach patient Overview Please assess for Care Management needs. Continued Care and Services Coordination
--- OUTSIDE RECORDS SUMMARY | 2024-10-31 12:08 | XMS_ITS | Clinical Summary ---
Author Organization [facility] Address [address] [place] [address] Phone Care Team Providers Care Laundry Press Operator Name Role Phone Unavailable Primary Care Provider Unavailabl e Social History Tobacco Use Types Packs/Day Years Used Date Smoking Tobacco: Never Assessed Comments Unknown Sex and Gender Information Value Date Recorded Sex Assigned at Not on file Legal Sex Female 3:04 AM EST Gender Identity Not on file Sexual Orientation Not on file Plan of Treatment Not on file
--- OUTSIDE RECORDS SUMMARY | 2024-10-31 12:08 | XMS_ITS | Clinical Summary ---
Author Organization [facility] Address [address] [place] [address] Care Team Providers Care Event Specialist Food Demonstrator Name Role Phone Oz Savage MD Primary Care Provider Allergies No known active allergies Medications carvedilol (Coreg) 3.125 mg tablet Take 1 tablet twice a day by oral route for 90 days. Active oxybutynin XL (Ditropan-XL) 15 mg 24 hr tablet Take 1 tablet every day by oral route for 90 days. Active aspirin 81 mg EC tablet Take 1 tablet by mouth in the morning. Active ferrous sulfate 325 (65 Fe) MG tablet Take 325 mg by mouth every 8 (eight) hours. Active omeprazole (PriLOSEC) [address] capsule Take 1 capsule every day by oral route for 90 days. Active pravastatin (Pravachol) 40 mg tablet Take 1 tablet every day by oral route for 90 days. Active famotidine (Pepcid) 20 mg tablet Take 1 tablet every day by oral route for 90 days. Active levothyroxine (Synthroid, Levoxyl) 88 mcg tablet Take 1 tablet every day by oral route for 90 days. Active magnesium oxide (Mag-Ox) 400 mg (241.3 mg magnesium) tablet Take 400 mg by mouth twice a day. Active fexofenadine-ps eudoephedrine (Ritika-D) 60-120 mg 12 hr tablet Take 1 tablet by mouth twice a day. Active empagliflozin (Jardiance) 10 mg Take 1 tablet by mouth in the morning. 01/04/2021 Active multivitamin (Theragran-M) 9 mg iron-400 mcg tablet Take 1 tablet by mouth in the morning. Active sacubitril-vals odette (Entresto) 49-51 mg tablet Take 1 tablet twice a day by oral route. Active Active Problems Problem Noted Date Diagnosed Date Benign essential hypertension 07/17/2023 Numbness and tingling of both legs 05/07/2023 Spinal stenosis of lumbar re gion with neurogenic claudication 05/07/2023 Abnormal ECG 04/02/2023 04/02/2023 Hx of CABG 04/02/2023 04/02/2023 Personal history of breast cancer 11/22/2022 04/02/2023 Special screening for malignant neoplasms, colon 09/06/2022 10/02/2022 ACC/AHA stage B heart failur e with reduced ejection fraction 09/04/2022 10/02/2022 Acquired hammer toe of left foot 09/04/2022 10/02/2022 Calculus of gallbladder with out cholecystitis without obstruction 09/04/2022 10/02/2022 Chronic diastolic heart failure 09/04/2022 10/02/2022 Elevated liver enzymes 09/04/2022 History of COVID-19 09/04/2022 10/02/2022 Mild episode of recurrent major depressive disor hansa 09/04/2022 10/02/2022 Malignant neoplasm of centra l portion of right female breast 09/04/2022 10/02/2022 Hypertensive heart failure 09/04/202210/02 Primary osteoarthritis, right hand 09/04/2022 10/02/2022 Secondary cardiomyopathy 09/04/2022 023 Triple negative malignant neoplasm of breast 10/02/2022 Vascular dementia 09/04/2022 10/02/2022 Thrombocytopenia 11/22/2020 10/02/2022 Loss of taste 11/18/2020 10/02/2022 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 023 Abnormal mammogram 10/12/2020 10/02/2022 Abnormal ultrasound of breast 10/12/2020 Nonproliferative diabetic retinopathy of left ey e 01/01/2020 10/02/2022 Sensorineural hearing loss, unilateral, right ear, with unrestricted hearing on the contralateral side 09/15/2019 023 Asymmetrical sensorineural hearing loss 08/13/1910/02/2022 Conductive hearing loss, bilateral 03/24/2019 10/02/2022 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 03/24/2019 10/02/2022 Retained orthopedic hardware 03/04/2019 Reduced ejection fraction co ncurrent with and due to chronic heart failure 11/21/2018 10/02/2022 Peripheral angiopathy due to type 2 diabetes brandyn litus 09/17/2018 10/02/2022 Diabetic autonomic neuropath y associated with type 2 diabetes mellitus 08/22/2018 10/02/2022 Mild nonproliferative diabet ic retinopathy associated with type 2 diabetes mellitus 05/21/2018 10/02/2022 intermediate teacher current use of anticoagulant therapy 0 04/11/2018 10/02/2022 Anger reaction 08/09/2017 10/02/2022 Seasonal allergic rhinitis due to pollen 018 10/02/2022 LPRD (laryngopharyngeal reflux disease) 12/28/19 17 10/02/2022 Hypercholesterolemia 11/28/2016 10/02/2022 Paralyzed vocal cords 11/28/2016 10/02/2022 RLS (restless legs syndrome) 11/28/2016 Diastolic dysfunction with acute on chronic hear t failure 02/17/2016 10/02/2022 Tension headache 02/17/2016 10/02/2022 Moderate nonproliferative di abetic retinopathy without macular edema associated with type 2 diabetes mellitus 11/18/2015 10/02/2022 Polyneuropathy due to type 2 diabetes mellitus 0 09/23/2015 Headache 09/02/2015 10/02/2022 Neuropathy 09/02/2015 10/02/2022 Diabetic renal disease 07/01/2015 3 Hiatal hernia 06/28/2015 10/02/2022 Osteoporosis 03/01/2015 10/02/2022 Acquired hypothyroidism 01/19/2015 10/03/19 23 Allergic rhinitis 01/19/2015 10/02/2022 Edema 01/19/2015 10/02/2022 History of stroke without residual deficits 12/1410/02/2022 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 disorder 5 10/02/2022 Disorder of lipid metabolism 09/23/2013 Other forms of chronic ischemic heart disease 10/02/2022 Overview (10/02/2022): EF 33% BY STRESS (02/25) EF 33% BY STRESS (02/25) Abnormal results of cardiovascular function stud ies 03/10/2013 10/02/2022 Overview (10/02/2022): ANTERIOR INFARCT; FRANCIS-INFARCT ISCHEMIA ANTERIOR INFARCT; FRANCIS-INFARCT ISCHEMIA Ischemic heart disease 03/10/2013 Overview (10/02/2022): EF 33% BY STRESS (02/25) EF 33% BY STRESS (02/25) Chronic systolic heart failure 03/12/2012 0 10/02/2022 Hyperlipidemia 03/12/2012 10/02/2022 Mitral valve disorder 03/12/2012 10/02/2022 Type 2 diabetes mellitus without complication 10/02/2022 Type 2 diabetes mellitus 03/12/2012 023 Family History Medical History Relation Name Comments Coronary artery disease Brother Relation Name Status Comments Brother Alive Father Mother Sister Social History Tobacco Use Types Packs/Day Years Used Date Smoking Tobacco: Former Cigarettes Q uit: 1972 Smokeless Tobacco: Never Tobacco Cessation:Counseling Given: Not Answered Alcohol Use Standard Drinks/Week Comments Never 0 (1 standard drink = 0.6 oz pur e alcohol) [place] Safety & Environment Answer Date Rec orded Fear of Current or Ex-Partner Not on file Emotionally Abused Not on file 04/05/2023 Physically Abused Not on file 04/05/2023 Sexually Abused Not on file 04/05/2023 Physically or Sexually Abused Not on file Comments Unknown Sex and Gender Information Value Date Recorded Sex Assigned at Not on file Legal Sex Female 9:53 PM EDT Gender Identity Not on file Sexual Orientation Not on file Last Filed Vital Signs Vital Sign Reading Time Taken Comments Blood Pressure 123/75 06/25/2024 1:25 PM EDT Pulse 80 06/25/2024 1:25 PM EDT Temperature - - Respiratory Rate - - Oxygen Saturation 97% 06/25/2024 1:25 PM EDT Inhaled Oxygen Concentration - - Weight 73.9 kg (163 lb) 06/25/2024 1:25 PM EDT Height 165.1 cm (5' 5 ) 06/25/2024 1:25 PM EDT Body Mass Index 27.12 06/25/2024 1:25 PM EDT Plan of Treatment Health Maintenance Due Date Last Done Comments CT Colonography 1949 Colonoscopy 1949 Colorectal Cancer Screening 1949 Diabetes: Hemoglobin A1C 1949 FIT-DNA 1949 FIT 1949 FOBT 1950 Medicare Annual Wellness (AWV) 1950 Sigmoidoscopy 1949 Diabetes: Retinopathy Screening 1959 Depression Screening 1961 Zoster Vaccines (1 of 2) 1999 08/20/2018 Fall Risk Screening 2014 Pneumococcal Vaccine: 50+ Years (2 of 2 - PPSV23, PCV20, or PCV21) 02/21/2018 12/27/2017 COVID-19 Vaccine (1 - 2023-2 5 season) 2024 Influenza Vaccine (#1) 2024 Adult Tetanus 08/31/2027 08/30/2017, 01/04/2009 Mammogram Discontinued 11/26/2023 HIB Vaccines Aged Out No longer eligi ble based on patient's age to complete this topic HPV Vaccines Aged Out No longer eligi ble based on patient's age to complete this topic IPV Vaccines Aged Out No longer eligi ble based on patient's age to complete this topic Meningococcal B Vaccine Aged Out No l onger eligible based on patient's age to complete this topic Meningococcal Vaccine Aged Out No brie melissa eligible based on patient's age to complete this topic Rotavirus Vaccines Aged Out No longer eligible based on patient's age to complete this topic Insurance MEDICARE Member Subscriber Plan / Payer (Ef fective 2014-Present) Name:Lilly Mckeon Member ID:[id number] Relation to Subscriber:Self Name:Lilly Mckeon Subscriber ID:[id number] Payer ID:[id number] Group ID:Not on file Type:Medicare Address: [address] COMMERCIAL Care Teams Event Specialist Food Demonstrator Relationship Specialty Start Date End Date Oz Savage MD [address] [place] [id number] PCP - General 10/02/22
--- OUTSIDE RECORDS SUMMARY | 2024-10-31 12:08 | XMS_ITS | Encounter Summary ---
Author Organization [facility] Address [address] [facility] [place] [address] Care Team Providers Care Motor And Controls Tester Name Role Phone Oz Savage MD Primary Care Provider Oz Savage MD Unavailable Litzy Montoya RN Unavailable [phone] Encounter Details Date Type Department Care Team (Late Contact Info) Description 01/09/2024 Abstract [facility] [place] [facility] [address] [facility] 110 [place] [phone] Oz Savage MD [address] [facility] 110 [place], [place] [phone] Social History Tobacco Use Types Packs/Day Years [...] 12/16/2024 4:15 PM EST Office Visit [facility] [place] [facility] [address] [facility] 310 [place] [address] Dakota Forman MD 5324 [facility] 111 [place] [address] 01/05/2025 1:15 PM EST [facility] 703 [facility] 150 [place] [address] Sandoval Robbins, 703 [facility] 150 [place] [address] 01/28/2025 2:15 PM EST Procedure Visit [facility] 1900 [place] [address] Ariel Lopez DPWilmar 1900 [place] [address] 04/01/2025 11:00 AM EST Office Visit [facility] [place] [facility] [address] [facility] 130 [place] [address] documented as of this encounter Visit Diagnoses Not on filedocumented in this encounter Care Teams Motor And Controls Tester Relationship Specialty Start Date End Date Oz Savage MD 112 [facility] 110 [place] [address] PCP - General Family Medicine 07/25/22 Oz Savage MD 112 [facility] 110 [place] [address] PCP - ACO Reach 04/13/23 Litzy Montoya, RN [address] [place] [address] Registered Nurse Family Medicine 10/28/24 10/30/24 documented as of this encounter
--- OUTSIDE RECORDS SUMMARY | 2024-10-31 12:08 | XMS_ITS | Encounter Summary ---
Author Organization [facility] Address [address] [facility] [place] [address] Care Team Providers Care Elementary Special Education Teacher Name Role Phone Oz Savage MD Unavailable Oz Savage MD Primary Care Provider Oz Savage MD Unavailable Litzy Montoya RN Unavailable [phone] Encounter Details Date Type Department Care Team (Late st Contact Info) Description 08/28/2019 Abstract [facility] [address] [facility] [place] [address] Yanni Ortiz, [facility] [address] [facility] [place] [address] Social History Tobacco Use Types Packs/Day Years [...] [facility] [address] [place] [address] [place] [address] Dakota Forman MD 5319 [facility] 111 [place] [address] 01/05/2025 1:15 PM EST [facility] [address] [facility] 150 [place] [address] Sandoval Robbins DO 703 [facility] 150 [place] [address] 01/28/2025 2:15 PM EST Procedure Visit [facility] [address] [place] [address] Ariel Lopez, DPM 1900 [place], [place] [address] 04/01/2025 11:00 AM EST Office Visit [facility] [place] [facility] [address] [facility] 130 [place] [address] documented as of this encounter Visit Diagnoses Not on filedocumented in this encounter Care Teams Elementary Special Education Teacher Relationship Specialty Start Date End Date Oz Savage MD 112 [facility] 110 [place] [address] PCP - MSSP ACO Attributed Provider 11/12/21 02/10/22 Oz Savage MD 112 [facility] 110 [place] [address] PCP - General Family Medicine 07/25/22 Oz Savage MD 112 [facility] 110 [place] [address] PCP - ACO Reach 04/13/23 Litzy Montoya, RN [address] [facility] [address] Registered Nurse Family Medicine 10/28/24 10/30/24 documented as of this encounter
--- OUTSIDE RECORDS SUMMARY | 2024-10-31 12:08 | XMS_ITS | Patient Health Record ---
Author Organization [facility] [place] Address [address] [place] [address] Care Team Providers Care Sushi Chef Name Role Phone Oz Savage MD Primary Care Provider Unavailabl e Allergies No Known Allergies Reason For Referral No Information Medications Medication SIG (Take, Route, Frequency, Duration) Notes Start Date End Date Status Magnesium - as directed Orally Active Levothyroxine Sodium 88 MCG Oral; Duration: 90 Days Active Aspirin 81 MG 1 tablet Orally Once a day Active Omeprazole 40 MG Oral; Duration: 90 Days Active Multi Complete - as directed Orally Active Cinnamon 500 MG as directed Orally Active Pravastatin Sodium 40 MG Oral; Duration: 90 Days Active Carvedilol 3.125 MG Oral; Duration: 90 Days Active oxyBUTYnin Chloride ER 15 MG Oral; Duration: 90 Days Active Famotidine 20 MG Oral; Duration: 90 Days Active Entresto 49-51 MG 1 tablet Orally Twic e a day Active Fexofenadine-Pseudoephed ER 60-120 MG 1 tablet as needed Orally Twice a day Active Ferrous Sulfate 325 (65 Fe) MG 1 tablet Orally Three times a Week Active Jardiance 10 MG Oral; Duration: 90 Days Active Immunizations Vaccine Route Administration Date Status Comme nts Pneumococcal (Prevnar 13) Unknown 12/27/2017 Administer ed Tdap (Boostrix) Unknown 08/30/2017 Administered Zoster (Zostavax) Unknown 08/20/2018 Administered Social History Tobacco Use: Social History Observation Description Date Details (start date - stop date) Never Smoker NA - NA Tobacco Use/Smoking Question Answer Notes Patient is a nonsmoker Problems Problem Type SNOMED Code ICD Code Onset Dates Problem Status W/U Status Risk Notes Problem Vocal cord paralysis (606329462) Vocal cord paralysis (J38.00) Active confirmed Problem Malignant neoplasm of female breast (474308068) Breast cancer, right (C50.911) Active confirmed Problem Aspiration pneumonia due to gastric secretions (J69.0) Active confirmed Plan Of Treatment No Information Insurance Providers Payer Name Payer Address Payer Phone Subscriber Number Group Number Insured Name Patient Relationship to Insured Coverage Start Date Coverage End Date MEDIC[place] [address] [place] [address] [id number] Lilly Conklin Self - patient is the insured [employer] [facility] [address] [place]TE MURRAY [id number] Lilly Conklin Self - patient is the insured Medical (General) History Medical History History ICD Code Vocal cord paralysis J38.00 Aspiration pneumonia due to gastric secr etions J69.0 Chronic systolic congestive heart failur e I50.22 Ischemic cardiomyopathy I25.5 CAD (coronary artery disease) I25.10 DM2 (diabetes mellitus, type 2) E11.9 Mitral valve regurgitation I34.0 Mitral valve stenosis I05.0 Breast cancer, right C50.911 HLD (hyperlipidemia) E78.5 Hypothyroidism E03.9 Other secondary pulmonary hypertension I 27.29 Surgical History Surgery Date(Month/Year) Colonoscopy 12/13/2022 trigger finger release sphincterotomy right knee arthroscopy lumpectomy, right breast tonsillectomy and adenoidectomy Cardiac Catheterization 11/29/2006 Coronary artery bypass graft 2006 Hospitalization History Reason Date(Month/Year) Chest Pain-[facility] 12/14/2022
--- OUTSIDE RECORDS SUMMARY | 2024-10-31 12:08 | XMS_ITS | Clinical Summary ---
Author Organization [email or web address] Address [facility] [id number] [address] [place] [address] Care Team Providers Care Mobile Engineer Name Role Phone Oz Savage MD Primary Care Provider [phone] Allergies No known active allergies Medications carvedilol (COREG) 3.125 mg tablet Take 3.125 mg by mouth 2 (two) times a day with meals. Active losartan (COZAAR) 50 mg tablet Take 50 mg by mouth daily. Active oxybutynin XL (DITROPAN XL) 15 mg 24 hr tablet Take 15 mg by mouth daily. Active aspirin 81 mg Take 81 mg by mouth daily. Active ferrous sulfate 325 (65 FE) mg tablet Take 325 mg by mouth daily with breakfast. Active omeprazole (PriLOSEC) 40 mg capsule Take 40 mg by mouth daily. Active aooejxfx-mqda-XI -calcium &mins (THERAGRAN-M) 9 mg iron-400 mcg tablet Take 1 tablet by mouth daily. Active levothyroxine (SYNTHROID, LEVOTHROID) 75 MCG tablet Take 88 mcg by mouth daily. Active famotidine (PEPCID) 20 mg tablet Take 20 mg by mouth 2 (two) times a day. Active pravastatin (PRAVACHOL) 40 mg tablet Take 40 mg by mouth daily. Active cinnamon bark (CINNAMON) 500 mg capsule Take 500 mg by mouth daily. Active magnesium oxide (MAG-OX) 400 mg tablet Take 400 mg by mouth 2 (two) times a day. Active fexofenadine-pse udoephedrine (ZEN-D) 60-120 mg per 12 hr tablet Take 1 tablet by mouth 2 (two) times a day. Active ibuprofen (ADVIL,MOTRIN) 200 mg tablet Take 200 mg by mouth every 6 (six) hours as needed for pain. Active Active Problems No known active problems Family History Medical History Relation Name Comments No Known Problems Father No Known Problems Mother Diabetes Paternal Grandfather Relation Name Status Comments Father (Age 60) Mother (Age 86) trauma to head from a fall Paternal Grandfather Social History Tobacco Use Types Packs/Day Years Used Date Smoking Tobacco: Never Smokeless Tobacco: Never Alcohol Use Standard Drinks/Week Comments Yes 0 (1 standard drink = 0.6 oz pur e alcohol) very rare Childcare Answer Date Recorded Childcare Unknown 07/24/2018 Employment Answer Date Recorded Employment Unknown 07/24/2018 Purpose - Life Answer Date Recorded Purpose and direction in life Unknown Comments No Sex and Gender Information Value Date Recorded Sex Assigned at Not on file Legal Sex Female 11:31 AM EDT Gender Identity Not on file Sexual Orientation Not on file Last Filed Vital Signs Vital Sign Reading Time Taken Comments Blood Pressure 124/59 03/26/2019 3:00 PM EST Pulse 53 03/26/2019 2:30 PM EST Temperature 36 C (96.8 F) 03/26/2019 1:59 PM EST Respiratory Rate 20 03/26/2019 3:00 PM EST Oxygen Saturation 96% 03/26/2019 3:05 PM EST Inhaled Oxygen Concentration - - Weight 79.4 kg (175 lb) 03/26/2019 12:28 PM EST Height 165.1 cm (5' 5 ) 03/26/2019 12:28 PM EST Body Mass Index 29.12 03/26/2019 12:28 PM EST Plan of Treatment Health Maintenance Due Date Last Done Comments Depression Screening 1961 Tobacco Screening 1962 Fall Risk Screening 2014 Zoster (Shingles) Vaccine (2 of 3) 10/15/20182018 Influenza Vaccine 10/13/2024 DTaP,Tdap and Td Vaccines (2 - Td or Tdap) 08/31/2027 08/30/2017 Medical Devices Implanted Type Area Jig Worker Device Identifier Shelf Expiration Date Model / Serial / Lot K Wire Dbl End [employer] - [id number] - [id number] Implanted:Qty: 2 on 04/03/2018 by Edwin Summers DO at [facility] Orthopedic Implant Right: Knee DEPUY 08/31/2018 [id number] / [id number] / [id number] Description:ref [id number] c-wire 0.062 trocar [employer] Wire W/Eye 1.36g205rd - Sna - [id number] Implanted:Qty: 2 on 04/03/2018 by Edwin Summers DO at [facility] Other Implant Right: Knee Synthes 291.02 / NA / NA Explanted Type Area Jig Worker Device Identifier Shelf Expiration Date Model / Serial / Lot K Wire Dbl End [employer] - [id number] - [id number] Explanted:Qty : 2 on 04/03/2018 by Edwin Summers DO at [facility] Orthopedic Implant Right: Knee DEPUY 04/03/2020 [id number] / [id number] / [id number] Description:0.062 c-wire tr ocar Insurance MEDICARE COMMERCIAL Care Teams Mobile Engineer Relationship Specialty Start [place] [address] [facility] - General 04/18/13
--- OUTSIDE RECORDS SUMMARY | 2024-10-31 12:09 | XMS_ITS | CCD ---
Author Organization [facility] Care Team Providers Care Computer Engineer Name Role Phone PHYSICIAN, DEFAULT Unavailable Unavailable PHYSICIAN, DEFAULT Unavailable Unavailable HONG SCHILLING Unavailable Unavailable MD Hong Schilling Primary Care Provider DO Bill Trammell Attending Provider [phone] DO Wai Duvall II Attending Provider MD Hong Schilling Attending Provider [phone] MD Hong Schilling Primary Care Provider [phone] DO Bill Trammell Attending Provider JANET, DR COOPER Consulting Unavailable ELTAHAWY, DR COOPER Admitting Unavailable ELTAHAWY, DR COOPER Attending Unavailable TONIE, DR PITTS Primary Care Unavailable TONIE, DR PITTS Primary Care Unavailable TONIE, DR PITTS Admitting Unavailable TONIE, DR PITTS Attending Unavailable TONIE, DR PITTS Consulting Unavailable JHONNY CAREY Unavailable ALAYUMIKO CUELLAR Primary Care Unavailable ITZMARIA ISABELTZ, DR BILL Mack Consulting Unavaila ble ITZKOWITZ, DR BILL Mack Admitting Unavaila ble ITZKOWITZ, DR BILL Mack Attending Unavaila ble TONIE, DR PITTS Primary Care Unavailable MISC, DR MCDONALD Admitting Unavailable MISC, DR MCDONALD Attending Unavailable MISC, DR MCDONALD Consulting Unavailable ZIEBER, DR EDWIN Grier Consulting Unavailable WEST, DR JHONNY Franks Consulting Unavailable ELTAHAWY, DR [...] Trammell Attending Unavailable Bill Trammell Admitting Unavailable Hong Schilling Primary Care Unavailable MD Hong Schilling Primary Care Provider DO Bill Trammell Attending Provider Hong Schilling MD Primary Care Provider Hong Schilling MD Unavailable GERMANIA HELTON Attending Unavailable CHANDA, ARIEL Han Attending Unavailable YOHANA, YANNI Choi Attending Unavailable TIMJAMILA SMITH Attending Unavailable HONG SCHILLING Referring Unavailable ITZYELENA, BILL Mack Attending Unavailable CHANDA, ARIEL Han Attending Unavailable TONIEHONG Choi Attending Unavailable RUSHER, ARIEL Han Attending Unavailable RUSHER, ARIEL Han Attending Unavailable YANNI MULLER Attending Unavailable HONG SCHILLING Attending Unavailable TONIEHONG Choi Attending Unavailable RUSHER, ARIEL Han Attending Unavailable RUSHER, ARIEL S Attending Unavailable ITZKOSUZETTE, BILL H Attending Unavailable RUS, ARIEL Han Attending Unavailable Allergies Allergy Classification Reported Allergen(s) Allergy Type Date of Onset Reaction(s) Facility (1 source) 94142,00; Translations: [97861,00] Propensity to adverse reactions (disorder) 9 [facility] Medications Current Medications Medication Drug [...] aspirin 81 mg delayed release oral tablet (20 sources) Platelet Aggregation Inhibitor, Nonsteroidal Anti-inflammatory Drug Start: 12-31-2020 take 81 mg by mouth once daily Aspirin Active 81 MG PO Daily December 31, 2020 1:00am ASPIRIN 81 PO Ta ke by mouth Active carvedilol 3.125 mg oral tablet (20 sources) alpha-Adrenergic Mervin, beta-Adrenergic Mervin Start: 08-18-2024 carvedilol (Core g) 3.125 MG tablet 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 TAKE 1 TABLET IN THE MORNING AND TAKE 1 TABLET BEFORE BEDTIME 180 tablet 3 08/18/2024 Active Start: 05-31-2024 take 1 tablet by diogo th in the morning carvedilol (Coreg) 3.125 MG tablet 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 Take 1 tablet (3.125 mg) by mouth [...] Active cinnamon bark 500 mg oral capsule (20 sources) Start: 12-31-2020 take 1 capsule by mouth twice daily Cinnamon Bark (Cinnamon) 500 mg Capsule Active 500 MG PO Twice daily December 31, 2020 1:00am take 1 capsule by mouth once jones ly cinnamon 500 MG capsule Take 500 mg by mouth Daily Active empagliflozin 10 mg oral tablet (20 sources) Sodium-Glucose Cotransporter 2 Inhibitor Start: 05-05-2024 Jardiance 10 MG Indications: Type 2 diabetes mellitus with peripheral vascular disease (HCC) TAKE 1 TABLET EVERY DAY 90 tablet 3 05/05/2024 Active Start: 01-19-2021 Jardiance 10 M G Indications: Type 2 diabetes mellitus with peripheral vascular disease (CMS/HCC) TAKE 1 TABLET EVERY DAY 90 tablet 3 04/16/2023 Active famotidine 20 mg oral tablet (20 sources) Histamine-2 Receptor Antagonist Start: 01-07-2024 famotidine (Pepcid) 20 MG tablet Indications: LPRD (laryngopharyngeal reflux disease) TAKE 1 TABLET AT BEDTIME 100 tablet 3 07/23/2024 Active Start: 12-31-2020 take 1 tablet by diogo th at bedtime famotidine (Pepcid) 20 MG tablet Indications: LPRD (laryngopharyngeal reflux disease) Take 1 tablet (20 mg) by mouth at bedtime 100 tablet 2 05/07/2023 Active ferrous sulfate 325 mg oral tablet (20 sources) Start: 01-08-2024 take 1 tablet by [...] hydrochloride 120 mg extended release oral tablet (20 sources) alpha-Adrenergic Agonist, Histamine-1 Receptor Antagonist Start: [...] propionate 0.05 mg/actuat metered dose nasal spray (20 sources) Corticosteroid Start: 05-07-2023 take 1-2 spray(s) [...] 600 MG PO EVERY 4-6 HOURS 14 March 15, 2021 1:00am do not exceed 4 doses in a 24 hour period ammonium lactate 120 mg/ml topical cream (20 sources) Start: 01-09-2024 End: 01-08-2025 ammonium lactate (Amlactin) 12 % cream Indications: Corns and callosities Apply topically Daily 140 g 3 01/09/2024 01/08/2025 Active levothyroxine sodium 0.088 mg oral tablet (20 sources) l-Thyroxine Start: 08-18-2024 levothyroxine (Synthroid, Levoxyl) 88 MCG tablet Indications: Acquired hypothyroidism TAKE 1 TABLET EVERY MORNING 90 tablet 3 08/18/2024 Active Start: 05-31-2024 take 1 tablet by diogo th in the morning levothyroxine (Synthroid, Levoxyl) 88 MCG tablet Indications: Acquired hypothyroidism Take 1 tablet (88 mcg) by mouth [...] 19, 2021 1:00am Multiple Vitamins-Minerals (Thera-M) tablet (20 sources) take 1 tablet by mouth in [...] omeprazole 40 mg delayed release oral capsule (20 sources) Proton Pump Inhibitor Start: 05-27-2024 omeprazole (PriLOSEC ) [address] capsule Indications: Gastroesophageal reflux disease with esophagitis, unspecified whether hemorrhage TAKE 1 CAPSULE EVERY DAY (NEED APPOINTMENT) 100 capsule 3 07/23/2024 Active Start: 12-31-2020 omeprazole (Pr iLOSEC) [address] capsule Indications: Gastroesophageal reflux disease with esophagitis, unspecified whether hemorrhage TAKE 1 CAPSULE EVERY DAY 100 capsule 3 04/25/2023 Active 24 hr oxybutynin chloride 15 mg extended release oral tablet (20 sources) Cholinergic Muscarinic Antagonist Start: 08-18-2024 oxybutynin XL (Ditropan-XL) 15 MG 24 hr tablet Indications: OAB (overactive bladder) TAKE 1 TABLET EVERY MORNING 90 tablet 3 08/18/2024 Active Start: 05-31-2024 take 1 tablet by diogo th every [...] 1:00am pravastatin sodium 40 mg oral tablet (20 sources) HMG-CoA Reductase Inhibitor Start: 08-18-2024 pravastatin (Pravach ol) 40 MG tablet Indications: Hypercholesterolemia TAKE 1 TABLET EVERY DAY 90 tablet 3 08/18/2024 Active Start: 05-31-2024 take 1 tablet by diogo th once daily pravastatin (Pravachol) 40 MG tablet Indications: Hypercholesterolemia Take 1 tablet (40 mg) by mouth Daily 90 tablet 05/31/2024 Active Start: 01-07-2024 pravastatin (P ravachol) 40 MG tablet Indications: Hypercholesterolemia (CMS/HCC) TAKE 1 TABLET EVERY DAY 100 tablet 1 01/07/2024 Active Start: 12-28-2020 pravastatin (P ravachol) 40 MG tablet Indications: Hypercholesterolemia (CMS/HCC) TAKE 1 TABLET EVERY DAY 100 tablet 3 01/07/2023 Active sacubitril 49 mg / valsartan 51 mg oral tablet (20 sources) Angiotensin 2 Receptor Mervin Start: 12-31-2020 take 1 tablet by mouth once daily Sacubitril-Valsartan (Entresto) 49-51 mg Tablet Active 1 TAB PO Daily December 31, 2020 1:00am sacubitril-valsa rtan (Entresto) 49-51 MG tablet every 12 (twelve) hours Active sulfamethoxazole 800 mg / trimethoprim 160 mg oral tablet (2 sources) Dihydrofolate Reductase Inhibitor Antibacterial, Sulfonamide Antimicrobial Start: 10-06-2024 End: 10-16-2024 take 1 tablet by mouth once in the morning, then take 1 tablet by mouth once at bedtime sulfamethoxazole-trimethoprim (Bactrim DS) 800-160 MG per tablet Indications: Infection of index finger , Swelling of index finger Take 1 tablet by mouth in the morning and 1 tablet before bedtime. Do all this for 10 days. 20 tablet 10/06/2024 10/16/2024 Active Completed/Discontinued Medications Medication Drug Class(es) Dates Sig (Normalized) Sig (Original) cephalexin 500 mg oral capsule (4 sources) Cephalosporin Antibacterial Start: 09-23-2024 End: 10-06-2024 take 1 capsule by mouth in the morning, then take 1 capsule by mouth in the evening, then take 1 capsule by mouth at bedtime cephalexin (Keflex) 500 MG capsule Indications: Infection of index finger Take 1 capsule (500 mg) by mouth in the morning and 1 capsule (500 mg) in the evening and 1 capsule (500 mg) before bedtime. Do all this for 10 days. 30 capsule 09/23/2024 10/06/2024 Discontinued (Other) Magnesium (20 sources) Start: 12-31-2020 End: 01-19-2021 take 15 [...] Active Problems Problem Classification Problem Date Documented Da te Episodic/Chronic Acquired foot deformities (20 sources) Acquired hammer toe of left foot; Translations: [Other hammer toe(s) (acquired), left foot] Onset: 3 09-04-2022 Chronic Acquired foot deformities (20 sources) Acquired hammer toe of right foot; Translations: [Other hammer toe(s) (acquired), right foot] Onset: 3 09-04-2022 Chronic Acquired foot deformities (9 sources) Contracture of joint of toe; Translations: [Other deformities of toe(s) (acquired), left foot] 12-12-2023 Episodic Cancer of breast (20 sources) Carcinoma of breast ; Translations: [Malignant neoplasm of unspecified site of unspecified female breast] Onset: 3 12-31-2020 Chronic Cancer of head and neck (20 sources) Malignant tumor of submandibular gland; 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] Onset: 5 07-21-2024 Chronic Chronic kidney disease (20 sources) Chronic kidney disease stage 3A ; Translations: [Chronic kidney disease, stage 3a (HCC) (CMS/HCC)] Onset: 5 07-21-2024 Chronic Chronic ulcer of skin (20 sources) Non-pressure chronic ulcer of other part of left foot with fat layer exposed; Translations: [Ulcer of other part of foot] Onset: 5 12-12-2023 Chronic Coagulation and hemorrhagic disorders (20 sources) Thrombocytopenic disorder; Translations: [Thrombocytopenia, unspecified] Onset: 1 09-04-2022 Chronic Congestive heart failure; nonhypertensive (20 sources) Heart failure, unspecified; Translations: [Systolic heart failure stage B] Onset: 3 09-04-2022 Chronic Coronary atherosclerosis and other heart disease (20 sources) Coronary arteriosclerosis; Translations: [Atherosclerotic heart disease of [place] coronary artery without angina pectoris] Onset: 4 03-15-2021 Chronic Delirium, dementia, and amnestic and other cognitive disorders (20 sources) Vascular dementia ; Translations: [Vascular dementia without behavioral disturbance] Onset: 3 09-04-2022 Chronic Diabetes mellitus with complications (20 sources) Disorder of kidney due to diabetes mellitus; Translations: [Type 2 diabetes mellitus with diabetic nephropathy] Onset: 6 09-04-2022 Chronic Diabetes mellitus without complication (20 sources) Type 2 diabetes mellitus without complications; Translations: [Type 2 diabetes mellitus] Onset: 3 09-04-2022 Chronic Disorders of lipid metabolism (20 sources) Hypercholesterolemia; Translations: [Pure hypercholesterolemia, unspecified] Onset: 3 09-04-2022 Chronic Esophageal disorders (20 sources) Gastro-esophageal reflux disease without esophagitis; Translations: [Laryngopharyngeal reflux] Onset: 7 09-04-2022 Chronic Essential hypertension (20 sources) Benign essential hypertension; Translations: [Essential (primary) hypertension] Onset: 4 07-17-2023 Chronic Headache; including migraine (20 sources) Tension-type headache; Translations: [Tension-type headache, unspecified, not intractable] Onset: 7 09-04-2022 Chronic Heart valve disorders (20 sources) Mitral valve disorder; Translations: [Rheumatic mitral valve disease, unspecified] Onset: 3 09-04-2022 Chronic Hypertension with complications and secondary hypertension (20 sources) Hypertensive heart disease with heart failure; Translations: [Hypertension secondary to endocrine disorder] Onset: 5 09-04-2022 Chronic Late effects of cerebrovascular disease (20 sources) 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 accident; Translations: [Unspecified symptoms and signs involving cognitive functions following cerebral infarction] Onset: 0 09-04-2022 Chronic Malignant neoplasm without specification of site (20 sources) Malignant adenomatous neoplasm; Translations: [Malignant (primary) neoplasm, unspecified] Onset: 1 09-04-2022 Chronic Mood disorders (20 sources) Recurrent major depressive episodes, mild ; Translations: [Major depressive disorder, recurrent, mild] Onset: 3 09-04-2022 Chronic Mycoses (3 sources) Onychomycosis; Translations: [Tinea unguium] 04-14-2024 Episodic Osteoarthritis (20 sources) Osteoarthritis of joint of right hand; Translations: [Primary osteoarthritis, right hand] Onset: 3 09-04-2022 Chronic Osteoporosis (20 sources) Osteoporosis; Translations: [Age-related osteoporosis without current pathological fracture] Onset: 6 09-04-2022 Chronic Other connective tissue disease (8 sources) Swelling of finger ; Translations: [Other specified soft tissue disorders] Onset: 5 10-06-2024 Episodic Other ear and sense organ disorders (20 sources) Asymmetrical sensorineural hearing loss; Translations: [Sensorineural hearing loss, bilateral] Onset: 0 09-04-2022 Chronic Other ear and sense organ disorders (20 sources) Conductive hearing loss, bilateral; Translations: [Conductive hearing loss, bilateral] Onset: 0 09-04-2022 Chronic Other ear and sense organ disorders (20 sources) Sensorineural hearing loss, unilateral, right ear, with unrestricted hearing on the contralateral side; Translations: [Sensorineural hearing loss, unilateral] Onset: 0 09-06-2022 Chronic Other ear and sense organ disorders (1 source) Impaired auditory discrimination; Translations: [Other abnormal auditory perceptions, right ear] 06-13-2024 Episodic Other gastrointestinal disorders (4 sources) Complete fecal incontinence; Translations: [Full incontinence of feces] Onset: 5 10-06-2024 Episodic Other hereditary and degenerative nervous system conditions (20 sources) Restless legs; Translations: [Restless legs syndrome] Onset: 7 09-04-2022 Chronic Other nervous system disorders (20 sources) Neuropathy; Translations: [Polyneuropathy, unspecified] Onset: 6 09-04-2022 Chronic Other nutritional; endocrine; and metabolic disorders (20 sources) Disorder of lipid metabolism; Translations: [Disorder of lipoprotein metabolism, unspecified] Onset: 4 09-04-2022 Chronic Other skin disorders (7 sources) Callosity; Translations: [Corns and callosities] 01-09-2024 Episodic Other skin disorders (3 sources) Dystrophia unguium; Translations: [Nail dystrophy] 04-14-2024 Episodic Other upper respiratory disease (20 sources) Allergic rhinitis; Translations: [Allergic rhinitis, unspecified] Onset: 5 09-04-2022 Chronic Other upper respiratory disease (20 sources) Vocal cord paralysis; Translations: [Paralysis of vocal cords and larynx, unspecified] Onset: 7 09-04-2022 Chronic Other upper respiratory disease (20 sources) Allergic rhinitis due to pollen; Translations: [Allergic rhinitis due to pollen] Onset: 8 09-04-2022 Chronic [place]-; endo-; and myocarditis; cardiomyopathy (except that caused by tuberculosis or sexually transmitted disease) (20 sources) Cardiomyopathy associated with another disorder; Translations: [Cardiomyopathy, unspecified] Onset: 3 09-04-2022 Chronic Peripheral and visceral atherosclerosis (7 sources) Peripheral vascular disease; Translations: [Peripheral vascular disease, unspecified] 12-12-2023 Chronic Pulmonary heart disease (20 sources) Pulmonary hypertension; Translations: [Pulmonary hypertension, unspecified] Onset: 5 07-21-2024 Chronic Residual codes; unclassified (20 sources) Orthopedic hardware in situ; Translations: [Presence of functional implant, unspecified] Onset: 0 09-04-2022 Chronic Skin and subcutaneous tissue infections (13 sources) Infection of finger; Translations: [Local infection of the skin and subcutaneous tissue, unspecified] Onset: 5 09-23-2024 Episodic Thyroid disorders (20 sources) Hypothyroidism, unspecified; Translations: [Acquired hypothyroidism] Onset: 5 09-04-2022 Chronic Viral infection (4 sources) COVID-19; Translations: [COVID-19] Onset: 1 Past or Other Problems Problem Classification Problem Date Documented Date Episodic/Chronic Abdominal hernia (20 sources) Hiatal hernia; Translations: [Diaphragmatic hernia without obstruction or gangrene] Onset: 6 09-04-2022 Episodic Anxiety disorders (20 sources) Anger reaction; Translations: [Irritability and anger] Onset: 8 09-04-2022 Episodic Biliary tract disease (20 sources) Cholelithiasis without obstruction; Translations: [Calculus of gallbladder without cholecystitis without obstruction] Onset: 3 09-04-2022 Episodic Cancer of breast (20 sources) Personal history of malignant neoplasm of breast; Translations: [History of malignant neoplasm of breast] Onset: 2 Episodic Coronary atherosclerosis and other heart disease (3 sources) Presence of aortocoronary bypass graft; Translations: [Aortocoronary bypass status] Onset: 1 Episodic E Codes: Fall (1 source) Unspecified fall, initial encounter; Translations: [UNSPECIFIED FALL INITIAL ENCOUNTER] Onset: 1 Episodic Fluid and electrolyte disorders (5 sources) Hyperkalemia; Translations: [Dehydration] Onset: 1 Episodic Genitourinary symptoms and ill-defined conditions (1 source) Personal history of urinary (tract) infections; Translations: [PERS HX URINARY TRACT INFECTIONS] Onset: 1 Episodic Headache; including migraine (20 sources) Headache; Translations: [Headache] Onset: 6 09-04-2022 Episodic Malaise and fatigue (1 source) Weakness; Translations: [WEAKNESS] Onset: 1 Episodic Nausea and vomiting (1 source) Nausea; Translations: [NAUSEA] Onset: 1 Episodic Other aftercare (1 source) senior care (current) use of aspirin; Translations: [SENIOR CARE CURRENT USE OF ASPIRIN] Onset: 1 Episodic Other aftercare (1 source) Other director long term care (current) drug therapy; Translations: [OTH PLANT CONTROL OPERATOR CURRENT DRUG THERAPY] Onset: 1 Episodic Other aftercare (20 sources) Long-term current use of anticoagulant; Translations: [parts counterman (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) use of anticoagulants] Onset: 9 09-04-2022 Episodic Other circulatory disease (1 source) Personal history of transient ischemic attack (TIA), and cerebral infarction without residual deficits; Translations: [PERS HX TIA AND CI NO RESID DEFICIT] Onset: 1 Episodic Other circulatory disease (20 sources) History of cerebrovascular accident without residual deficits; Translations: [Personal history of transient ischemic attack (TIA), and cerebral infarction without residual deficits] Onset: 5 09-04-2022 Episodic Other infections; including parasitic (20 sources) Personal history of other infectious and parasitic diseases; Translations: [History of COVID-19] Onset: 3 09-04-2022 Episodic Other injuries and conditions due to external causes (1 source) Other specified injuries of right shoulder and upper arm, initial encounter; Translations: [OTH SPEC INJ RT SHOULDR UP ARM INIT] Onset: 1 Episodic Other liver diseases (4 sources) Abnormal levels of other serum enzymes; Translations: [ABNORMAL LEVELS OTHER SERUM ENZYMES] Onset: 2 Episodic Other liver diseases (20 sources) Elevated liver enzymes level; Translations: [Abnormal levels of other serum enzymes] Onset: 3 09-04-2022 Episodic Other lower respiratory disease (1 source) Shortness of breath; Translations: [SHORTNESS OF BREATH] Onset: 1 Episodic Other nervous system disorders (20 sources) Loss of taste; Translations: [Parageusia] Onset: 1 09-04-2022 Episodic Other nervous system disorders (20 sources) Paresthesia of lower extremity; Translations: [Anesthesia of skin] Onset: 4 05-07-2023 Episodic Other non-traumatic joint disorders (3 sources) Pain in right shoulder; Translations: [PAIN IN RIGHT SHOULDER] Onset: 1 Episodic Other screening for suspected conditions (not mental disorders or infectious disease) (20 sources) Electrocardiogram abnormal; Translations: [Abnormal electrocardiogram [ECG] [EKG]] Onset: 4 03-28-2021 Episodic Residual codes; unclassified (20 sources) Edema; Translations: [Edema, unspecified] Onset: 5 09-04-2022 Episodic Spondylosis; intervertebral disc disorders; other back problems (20 sources) Spinal stenosis of lumbar region; Translations: [Spinal stenosis, lumbar region with neurogenic claudication] Onset: 4 05-07-2023 Episodic Sprains and strains (1 source) Strain of unspecified muscle, fascia and tendon at shoulder and upper arm level, right arm, initial encounter; Translations: [STRN UNS MSC F TND SHLDR UA RA INIT] Onset: 1 Episodic Superficial injury; contusion (1 source) Contusion of right shoulder, initial encounter; Translations: [CONTUSION RIGHT SHOULDER INITIAL] Onset: 1 Episodic Viral infection (20 sources) COVID-19; Translations: [Other specified viral infection] Onset: 1 09-04-2022 Episodic Results Test Name Value Interpretation Reference Range Facility CBC (INCLUDES DIFF/PLT)on Basophils (Bld) [#/Vol] 0.021 10*3/uL Normal 0-200 [facility] Comment on above: Performed By: #### 7 600, 6399, [id number] #### [facility] [place] [address] [employer]: Homer Funes MD Basophils/100 WBC (Bld) 0.3 % Normal [facility] Comment on above: Performed By: #### 7 600, 6399, [id number] #### [facility] [place] [address] [employer]: Homer Funes MD Eosinophils (Bld) [#/Vol] 0.099 10*3/uL Normal 15-500 [facility] Comment on above: Performed By: #### 7 600, 6399, 52017 #### [facility] [place] [address] [employer]: Homer Funes MD Eosinophils/100 WBC (Bld) 1.4 % Normal [facility] Comment on above: Performed By: #### 7 600, 6399, 52828 #### [facility] [place] [address] [employer]: Homer Funes MD Erythrocyte distribution width (RBC) [Ratio] 13.5 % Normal 11.0-15.0 [facility] Comment on above: Performed By: #### 7 600, 6399, 68339 #### [facility] of [address] [id number] [employer]: Homer Funes MD Hematocrit (Bld) [Volume fraction] 46.1 % High 35.0-45.0 [facility] Comment on above: Performed By: #### 7 600, 6399, 96529 #### [facility] [place] [address] [employer]: Homer Funes MD Hemoglobin (Bld) [Mass/Vol] 14.1 g/dL Normal 11.7-15.5 [facility] Comment on above: Performed By: #### 7 600, 6399, 50742 #### [facility] [place] [address] [employer]: Homer Funes MD Lymphocytes (Bld) [#/Vol] 1.221 10*3/uL Normal 850-3900 [facility] Comment on above: Performed By: #### 7 600, 6399, 12318 #### [facility] [place] [address] [employer]: Homer Funes MD Lymphocytes/100 WBC (Bld) 17.2 % Normal [facility] Comment on above: Performed By: #### 7 600, 6399, 32447 #### [facility] [place] [address] [employer]: Homer Funes MD MCH (RBC) [Entitic mass] 30.5 pg Normal 27.0-33.0 [facility] Comment on above: Performed By: #### 7 600, 6399, 76571 #### [facility] [place] [address] [employer]: Homer Funes MD MCHC (RBC) [Mass/Vol] 30.6 g/dL Low 32.0-36.[address] [facility] Comment on above: Result Comment: For adults, a slight decrease in the calculated MCHC value (in the range of 30 to 32 g/dL) is most likely not clinically significant; however, it should be interpreted with caution in correlation with other red cell parameters and the patient's clinical condition. Performed By: #### 7 600, 6399, [id number] #### [facility] [place] [address] [employer]: Homer Funes MD MCV (RBC) [Entitic vol] 99.6 fL Normal 80.0-100.0 [facility] Comment on above: Performed By: #### 7 600, 6399, 60167 #### [facility] [place] [address] [employer]: Homer Funes MD Monocytes (Bld) [#/Vol] 0.632 10*3/uL Normal 200-950 [facility] Comment on above: Performed By: #### 7 600, 6399, 87859 #### [facility] [place] [address] [employer]: Homer Funes MD Monocytes/100 WBC (Bld) 8.9 % Normal [facility] Comment on above: Performed By: #### 7 600, 63, 01335 #### [facility] [place] [address] [employer]: Homer Funes MD Neutrophils (Bld) [#/Vol] 5.126 10*3/uL Normal 0986-2173 [facility] Comment on above: Performed By: #### 7 600, 6399, 05832 #### [facility] [place] [address] [employer]: Homer Funes MD Neutrophils/100 WBC (Bld) 72.2 % Normal [facility] Comment on above: Performed By: #### 7 600, 6399, 92684 #### [facility] [place] [address] [employer]: Homer Funes MD Platelet mean volume (Bld) [Entitic vol] 10.6 fL Normal 7.5-12.5 [facility] Comment on above: Performed By: #### 7 600, 6399, 81861 #### [facility] of [address], [address] [place] [address] [employer]: Homer Funes MD Platelets (Bld) [#/Vol] 203 10*3/uL Normal 140-400 [facility] Comment on above: Performed By: #### 7 600, 6399, 27003 #### [facility] of [address], [address] [place] [address] [employer]: Homer Funes MD RBC (Bld) [#/Vol] 4.63 10*6/uL Normal 3.80-5.10 [facility] Comment on above: Performed By: #### 7 600, 6399, 38729 #### [facility] of [address], [address] [place] [address] [employer]: Homer Funes MD WBC (Bld) [#/Vol] 7.1 10*3/uL Normal 3.8-10.8 [facility] Comment on above: Performed By: #### 7 600, 6399, 72235 #### [facility] of [address], [address] [place] [address] [employer]: Homer Funes MD [facility] 07-22-2024 Albumin [Mass/Vol] 4.2 g/dL Normal 3.6-5.1 [facility] Comment on above: Performed By: #### 7 600, 6399, 92142 #### [facility] [place] [address] [employer]: Homer Funes MD Albumin/Globulin [Mass ratio] 1.6 {ratio} Normal 1.0-2.5 [facility] Comment on above: Performed By: #### 7 600, 6399, 20847 #### [facility] [place] [address] [employer]: Homer Funes MD ALP [Catalytic activity/Vol] 81 U/L Normal 37-153 [facility] Comment on above: Performed By: #### 7 600, 6399, 01005 #### [facility] of [address] [place] [address] [employer]: Homer Funes MD ALT [Catalytic activity/Vol] 15 U/L Normal 6-29 [facility] Comment on above: Performed By: #### 7 600, 6399, 37462 #### [facility] [place] [address] [employer]: Homer Funes MD AST [Catalytic activity/Vol] 22 U/L Normal 10-35 [facility] Comment on above: Performed By: #### 7 600, 6399, 56835 #### [facility] [place] [address] [employer]: Homer Funes MD Bilirubin [Mass/Vol] 0.9 mg/dL Normal 0.2-1.2 [facility] Comment on above: Performed By: #### 7 600, 6399, 00147 #### [facility] [place] [address] [employer]: Homer Funes MD Calcium [Mass/Vol] 10.0 mg/dL Normal 8.6-10.4 [facility] Comment on above: Performed By: #### 7 600, 6399, 84200 #### [facility] [place] [address] [employer]: Homer Funes MD Chloride [Moles/Vol] 102 mmol/L Normal 98-110 [facility] Comment on above: Performed By: #### 7 600, 6399, 83777 #### [facility] [place] [address] [employer]: Homer Funes MD CO2 [Moles/Vol] 30 mmol/L Normal 20-32 [facility] Comment on above: Performed By: #### 7 600, 6399, 08924 #### [facility] [place] [address] [employer]: Homer Funes MD Creatinine [Mass/Vol] 1.18 mg/dL High 0.60-1.[address] [facility] Comment on above: Performed By: #### 7 600, 6399, 56738 #### [facility] of [address], [address] [place] [address] [employer]: Homer Funes MD GFR/1.73 sq M.predicted among non-blacks MDRD (S/P/Bld) [Vol rate/Area] 48 mL/min/{1.73_m2} Low > OR = 60 [facility] Comment on above: Performed By: #### 7 600, 6399, 43990 #### [facility] of [address], [address] [place] [address] [employer]: Homer Funes MD Globulin (S) [Mass/Vol] 2.6 g/dL Normal 1.9-3.7 [facility] Comment on above: Performed By: #### 7 600, 6399, 88864 #### [facility] of [address], [address] [place] [address] [employer]: Homer Funes MD Glucose [Mass/Vol] 111 mg/dL High 65-99 [facility] Comment on above: Result Comment: Fasting reference interval For someone without known diabetes, a glucose value between 100 and 125 mg/dL is consistent with prediabetes and should be confirmed with a follow-up test. Performed By: #### 7 600, 6399, 45378 #### [facility] [address], [address] [place] [address] [employer]: Homer Funes MD Potassium [Moles/Vol] 6.0 mmol/L High 3.5-5.[address] [facility] Comment on above: Performed By: #### 7 600, 6399, 20339 #### [facility] [place] [address] [employer]er: Homer Funes MD Protein [Mass/Vol] 6.8 g/dL Normal 6.1-8.1 [facility] Comment on above: Performed By: #### 7 600, 6399, 56218 #### [facility] of [address], [address] [place] [address] [employer]: Homer Funes MD Sodium [Moles/Vol] 138 mmol/L Normal 135-146 [facility] Comment on above: Performed By: #### 7 600, 6399, 22260 #### [facility] [address], [address] [place] [address] [employer]: Homer Funes MD Urea nitrogen [Mass/Vol] 30 mg/dL High - [facility] Comment on above: Performed By: #### 7 600, 6399, 36544 #### [facility] [address], [address] [place] [address] [employer]: Homer Funes MD Urea nitrogen/Creatinine [Mass ratio] 25 mg/mg High - [facility] Comment on above: Performed By: #### 7 600, 6399, 46876 #### [facility] [place] [address] [employer]er: Homer Funes MD LIPID PANEL, [facility] 06- Cholesterol [Mass/Vol] 153 mg/dL Normal <200 [facility] Comment on above: Order Comment: FASTI NG:NO PATIENT UNABLE TO VOID; ADVISED TO RETURN FOR COLLECTION. FASTING: NO Performed By: #### 7 600, 6399, 22724 #### [facility] [place] [address] [employer]: Homer Funes MD Cholesterol in HDL [Mass/Vol] 57 mg/dL Normal > OR = 50 [facility] Comment on above: Order Comment: FASTI NG:NO PATIENT UNABLE TO VOID; ADVISED TO RETURN FOR COLLECTION. FASTING: NO Performed By: #### 7 600, 6399, 12732 #### [facility] [place] [address] [employer]: Homer Funes MD Cholesterol in LDL [Mass/Vol] 77 mg/dL Normal [facility] Comment on above: Order Comment: FASTI NG:NO PATIENT UNABLE TO VOID; ADVISED TO RETURN FOR COLLECTION. FASTING: NO Result Comment: Refe rence range: <100 Desirable range <100 mg/dL for primary prevention; <70 mg/dL for patients with CHD or diabetic patients with > or = 2 CHD risk factors. LDL-C is now calculated using the Noreen calculation, which is a validated novel method providing better accuracy than the Friedewald equation in the estimation of LDL-C. Camden MONTANA et al. DARYA. 2013;310(19): 0622-8056 (http://education.Tus reQRdos.Social Intelligence/faq/RZX835) Performed By: #### 7 600, 6399, 68368 #### [facility] [address], [address] [place] [address] [employer]: Homer Funes MD Cholesterol.total/Cho lesterol in HDL [Mass ratio] 2.7 {ratio} Normal <5.0 [facility] Comment on above: Order Comment: FASTI NG:NO PATIENT UNABLE TO VOID; ADVISED TO RETURN FOR COLLECTION. FASTING: NO Performed By: #### 7 600, 6399, 12617 #### [facility] [address], [address] [place] [address] [employer]: Homer Funes MD NON HDL CHOLESTEROL 96 mg/dL (calc) Normal <130 [facility] Comment on above: Order Comment: FASTI NG:NO PATIENT UNABLE TO VOID; ADVISED TO RETURN FOR COLLECTION. FASTING: NO Result Comment: For patients with diabetes plus 1 major ASCVD risk factor, treating to a non-HDL-C goal of <100 mg/dL (LDL-C of <70 mg/dL) is considered a therapeutic option. Performed By: #### 7 600, 6399, 51921 #### [facility] [address], [address] [place] [address] [employer]: Homer Funes MD Triglyceride [Mass/Vol] 111 mg/dL Normal <150 [facility] Comment on above: Order Comment: FASTI NG:NO PATIENT UNABLE TO VOID; ADVISED TO RETURN FOR COLLECTION. FASTING: NO Performed By: #### 7 600, 6399, 95026 #### [facility] [address], [address] [place] [address] [employer]er: Homer Funes MD TSH W/REFLEX TO FT4on 06-10- 2025 TSH W/REFLEX TO FT4 2.27 mIU/L Normal 0.40-4.50 [facility] Comment on above: Performed By: #### 7 299, 2463, 16653 #### [facility] [address], [address] [place] [address] [employer]: Homer Funes MD Laboratory - Hematology and Cell countson 07-21-2024 HbA1c (Bld) [Mass fraction] 5.6 % [facility] No Panel Informationon 07-21 Interpretation and review of laboratory results Normal [facility] Orders Onlyon 07-03-2024 Orders Only [id number] Isabella Horne 1950 F Date Provider Department Center 07/03/2024 [id number], HISTORICAL [facility] Family History Problem Relation Age of Onset Coronary artery disease Brother Family Status - Relation Status Age at Mother Father Sister Brother Alive Normal [facility] NM ANTONELLA PERF SPECT REST STRon 07-02-[address] [facility] [address] [place] [address] Nuclear Medicine Report Signed Patient: ISABELLA HORNE MR#: [id number] : 1950 Acct:[id number] Age/Sex: 74 / F ADM Date: 07/01/24 Loc: NM Attending Dr: Germania Helton M.D. Ordering Physician: Germania Helton M.D. Date of Service: 07/01/24 Procedure(s): NM antonella perf SPECT rest str Accession Number(s): [id number] cc: HONG SCHILLING Ehab M.D. Patient Name: ISABELLA HORNE MR#: [id number] : 1950 Exam Date: 07/01/2024 Ordering Doctor: DR GERMANIA HELTON M.D. RADIOLOGY REPORT PROCEDURE: NM ANTONELLA PERF SPECT REST STR COMPARISON: None. INDICATIONS: ABNORMAL ECHOCARDIOGRAM, CHRONIC SYSTOLIC HEART FAILURE TECHNIQUE: Exam Description: Stress/Rest one day protocol gated SPECT Rest Imagin.8 mCi Tc-99m Cardiolite IV on 07/01/2024 Stress Imaging 30.6 mCi Tc-99m Cardiolite IV on 07/01/2024 Exercise Protocol: 0.4 mg Lexiscan given IV Heart Rate (bpm): Rest: 72 Max: 83 PMHR: 57 Blood Pressure: Rest: 124/82 Max: 126/76 Symptoms: Rest and peak stress ECG findings were pending, and the exercise portion of the study was pending per attending physician [facility]. For more details, please see separate cardiac stress test report. FINDINGS: QUALITY OF STUDY: Good PERFUSION DEFECT: LOCATION: Anteroapical, apical, inferoapical SIZE: Large SEVERITY: Severe TYPE: Fixed WALL MOTION: Hypokinesis of the apical myocardium LV SIZE: 132 mL TID / TCD: 0.9 LVEF: Calculated EF 47%. SUMMARY: Myocardial perfusion imaging study is abnormal CONCLUSION: 1. Myocardial perfusion is abnormal 2. A large anteroapical, apical and inferoapical fixed defect suggestive of infarct is seen 3. No significant ischemia seen 4. Global left ventricular systolic function is mildly reduced; ejection fraction is 47% 5. No evidence of transient ischemic dilatation Dictated by: Germania Helton M.D. on 07/02/2024 at 16:34 Approved by: Germania Helton M.D. on 07/02/2024 at 16:37 Dictated By: Germania Helton M.D. Signed By: 07/02/24 1638 DD/ 1637 TD/TT: Music Researcher: [facility] Radiology, Radiologyola velez MD - 07/02/2024 [place] [address] Nuclear Medicine Report Signed Patient: ISABELLA HORNE MR#: [id number] : 1950 Acct:[id number] Age/Sex: 74 / F ADM Date: 07/01/24 Loc: NM Attending Dr: Germania Helton M.D. Ordering Physician: Germania Helton M.D. Date of Service: 07/01/24 Procedure(s): NM antonella perf SPECT rest str Accession Number(s): [id number] cc: HONG SCHILLING ; Germania Helton M.D. Patient Name: ISABELLA HORNE MR#: [id number] : 1950 Exam Date: 07/01/2024 Ordering Doctor: DR GERMANIA HELTON M.D. RADIOLOGY REPORT PROCEDURE: NM ANTONELLA PERF SPECT REST STR COMPARISON: None. INDICATIONS: ABNORMAL ECHOCARDIOGRAM, CHRONIC SYSTOLIC HEART FAILURE TECHNIQUE: Exam Description: Stress/Rest one day protocol gated SPECT Rest Imagin.8 mCi Tc-99m Cardiolite IV on 07/01/2024 Stress Imaging 30.6 mCi Tc-99m Cardiolite IV on 07/01/2024 Exercise Protocol: 0.4 mg Lexiscan given IV Heart Rate (bpm): Rest: 72 Max: 83 PMHR: 57 Blood Pressure: Rest: 124/82 Max: 126/76 Symptoms: Rest and peak stress ECG findings were pending, and the exercise portion of the study was pending per attending physician [facility]. For more details, please see separate cardiac stress test report. FINDINGS: QUALITY OF STUDY: Good PERFUSION DEFECT: LOCATION: Anteroapical, apical, inferoapical SIZE: Large SEVERITY: Severe TYPE: Fixed WALL MOTION: Hypokinesis of the apical myocardium LV SIZE: 132 mL TID / TCD: 0.9 LVEF: Calculated EF 47%. SUMMARY: Myocardial perfusion imaging study is abnormal CONCLUSION: 1. Myocardial perfusion is abnormal 2. A large anteroapical, apical and inferoapical fixed defect suggestive of infarct is seen 3. No significant ischemia seen 4. Global left ventricular systolic function is mildly reduced; ejection fraction is 47% 5. No evidence of transient ischemic dilatation Dictated by: Germania Helton M.D. on 07/02/2024 at 16:34 Approved by: Germania Helton M.D. on 07/02/2024 at 16:37 Dictated By: Germania Helton M.D. Signed By: 07/02/24 1638 DD/ TD/TT: Music Researcher: [facility] Radiology Study observation (narrative) [facility] NM ANTONELLA PERF SPECT REST STROr dered By: Radiologist Radiology on 07-02-2024 [facility] Work Phone: Office Visiton 06-25-2024 Follow-up visit [id number] Isabella Horne 1950 F Date Provider Department Center 06/25/2024 271-GERMANIA HELTON L[facility] Family History Problem Relation Age of Onset Coronary artery disease Brother Family Status - Relation Status Age at Mother Father Sister Brother Alive Level of Service:66140 [place] OFFICE/OUTPATIENT ESTABLISHED MOD MDM 30 MIN Normal [facility] Auditory function testson Right Ear: 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 Ordering Physician: Germania Helton M.D. Date of Service: 05/15/24 Procedure(s): CA echo doppler complete Accession Number(s): [id number] cc: HONG SCHILLING ; Germania Helton M.D. ECHOCARDIOGRAM REPORT PROCEDURE: CA ECHO DOPPLER COMPLETE INDICATIONS: Chronic heart failure, CABGx4, DC, stroke, hypertension, diabetes COMPARISON: None. DESCRIPTION: COMPLETE [...] Area (VTI): 1.46 cm2, 1.46 cm2 Deceleration Assumption: Pressure Half-Time: Peak Velocity(Antegrade Flow): 1.42 m/s [...] on 05/15/2024 a (more content not included)... [facility] Radiology, Radiologi MD agustin - 05/15/2024 [place] [address] Cardiology Report Signed Patient: ISABELLA HORNE MR#: [id number] : 1950 Acct:[id number] Age/Sex: 74 / F ADM Date: 05/15/24 Loc: CARD Attending Dr: Germania Helton M.D. Ordering Physician: Germania Helton M.D. Date of Service: 05/15/24 Procedure(s): CA echo doppler complete Accession Number(s): [id number] cc: HONG SCHILLING ; Germania Helton M.D. ECHOCARDIOGRAM REPORT PROCEDURE: CA ECHO DOPPLER COMPLETE INDICATIONS: Chronic heart failure, CABGx4, DC, stroke, hypertension, diabetes COMPARISON: None. DESCRIPTION: COMPLETE [...] Area (VTI): 1.46 cm2, 1.46 cm2 Deceleration Assumption: Pressure Half-Time: Peak Velocity(Antegrade Flow): 1.42 m/s [...] 05/15/2024 at 19:14 Continued Report - Page [place] [address] Dictated By: Josselyn Galeano M.D. Signed By: 05/15/241914 DD/ 13 TD/TT: Music Researcher: [facility] Radiology Study observation (narrative) [facility] CA ECHO DOPPLER COMPLETEOrde red By: Radiologist Radiology on 05-15-2024 [facility] Work Phone: MM diagnostic mammo BI w/CAD on 11-26-2023 MM diagnostic mammo BI w/CAD [facility] [place] [address] Mammography Report Signed Patient: Isabella Horne MR#: [id number] : 1950 Acct:[id number] Age/Sex: 73 / F ADM Date: 11/26/23 Loc: [place] Room: Type: [facility] Attending Dr: Bill Trammell DO Copies to: [...] Vanessa Alva M.D.11/26/2023 1:01 PM Dictation Location: [facility] Transcribed By: AZEB 11/26/23 1301 Dictated By: Vanessa Alva MD 11/26/23 1052 Signed By: 11/26/23 1301 Normal [facility] MG MAMM MICHELE DIAG W CADon MG MAMM MICHELE DIAG W CAD Patient: ISABELLA HORNE Exam Date: 10/21/2021 : 1950 Gender:F Ordering : DR BILL TRAMMELL D.O. Admission #: [id number] Family : Order #: [id number] CLICK HERE TO VIEW EXAM RADIOLOGY REPORT [...] Treatments None Family Cancers None LOCATION: The [facility] BREAST COMPOSITION: Heterogeneously dense,which may obscure [...] Astudillo M.D. on 10/21/2021 at 15:23 Normal [facility] LIVER PROFILEon 07-13-2021 Albumin [Mass/Vol] 3.5 g/dL Normal 3.4-5.0 [facility] Comment on above: Performed By: #### L IVER ####[facility] [address] [place] [id number]. Krystal Lewis Albumin/Globulin [Mass ratio] 0.9 {ratio} Normal [facility] Comment on above: Performed By: #### L IVER ####[facility] [address] [place] [address]Dr. Krystal Lewis ALP [Catalytic activity/Vol] 92 U/L Normal 46-116 [facility] Comment on above: Performed By: #### L IVER ####[facility] [address] [place] [address]Dr. Krystal Lewis ALT [Catalytic activity/Vol] 23 U/L Normal 14-59 [facility] Comment on above: Performed By: #### L IVER ####[facility] [address] [place] [address]Dr. Krystal Lewis AST [Catalytic activity/Vol] 18 U/L Normal 15-37 [facility] Comment on above: Performed By: #### L IVER ####[facility] [address] [place] [address]Dr. Krystal Lewis BILI, CONJUGATED 0.1 mg/dL Normal 0.0-0.2 [facility] Comment on above: Performed By: #### L IVER ####[facility] [address] [place] [address]Dr. Krystal Lewis Bilirubin [Mass/Vol] 0.7 mg/dL Normal 0.2-1.0 [facility] Comment on above: Performed By: #### L IVER ####[facility] [address] [place], [place] [address]Oc. Krystal Lewis Globulin (S) [Mass/Vol] 3.7 g/dL Normal [facility] Comment on above: Performed By: #### L IVER ####[facility] [address] [place], [place] [address]Rb. Krystal Lewis Protein [Mass/Vol] 7.2 g/dL Normal 6.4-8.2 [facility] Comment on above: Performed By: #### L IVER ####[facility] [address] [place], [place] [address]Hd. Krystal Lewis US SINGLE QUAD RT UPPERon [...] by: JHONNY CAREY Date: 2021-04-18 10:16 Normal [facility] Complete Blood Count with Au to Diffon 04-05-2021 Basophils (Bld) [#/Vol] 0.03 10*3/uL Normal 0.00-0.20 [facility] Comment on above: Performed By: #### T SH reflex FT4, LIPD, CMP, CBCAD #### [facility] [address] [place], [place] [id number] Basophils/100 WBC (Bld) 0.5 % Normal [facility] Comment on above: Performed By: #### T SH reflex FT4, LIPD, CMP, CBCAD #### [facility] [address], [place] [id number] Eosinophils (Bld) [#/Vol] 0.26 10*3/uL Normal 0.02-0.50 [facility] Specialist Comment on above: Performed By: #### T SH reflex FT4, LIPD, CMP, CBCAD #### [facility] [address], [place] [id number] Eosinophils/100 WBC (Bld) 4.1 % Normal [facility] Specialist Comment on above: Performed By: #### T SH reflex FT4, LIPD, CMP, CBCAD #### [facility] [address], [place] [id number] Erythrocyte distribution width (RBC) [Ratio] 13.2 % Normal 11.0-15.0 [facility] Specialist Comment on above: Performed By: #### T SH reflex FT4, LIPD, CMP, CBCAD #### [facility] [address], [place] [id number] Hematocrit (Bld) [Volume fraction] 46.2 % Normal 35.0-47.0 [facility] Comment on above: Performed By: #### T SH reflex FT4, LIPD, CMP, CBCAD #### [facility] [address], [place] [id number] Hemoglobin (Bld) [Mass/Vol] 14.4 g/dL Normal 11.6-15.5 [facility] Specialist Comment on above: Performed By: #### T SH reflex FT4, LIPD, CMP, CBCAD #### [facility] [address], [place] [id number] Lymphocytes (Bld) [#/Vol] 1.1 10*3/uL Normal 0.9-3.9 [facility] Specialist Comment on above: Performed By: #### T SH reflex FT4, LIPD, CMP, CBCAD #### [facility] [address], [place] [id number] Lymphocytes/100 WBC (Bld) 17.5 % Normal [facility] Specialist Comment on above: Performed By: #### T SH reflex FT4, LIPD, CMP, CBCAD #### [facility] [address], [place] [id number] MCH (RBC) [Entitic mass] 30.3 pg Normal 27.0-33.0 [facility] Comment on above: Performed By: #### T SH reflex FT4, LIPD, CMP, CBCAD #### [facility] [address], [place] [id number] MCHC (RBC) [Mass/Vol] 31.2 g/dL Low 32.0-36.0 [facility] Comment on above: Performed By: #### T SH reflex FT4, LIPD, CMP, CBCAD #### [facility] [address], [place] [id number] MCV (RBC) [Entitic vol] 97 fL Normal 80-100 [facility] Comment on above: Performed By: #### T SH reflex FT4, LIPD, CMP, CBCAD #### [facility] [address], [place] [id number] Monocytes (Bld) [#/Vol] 0.7 10*3/uL Normal 0.2-0.9 [facility] Comment on above: Performed By: #### T SH reflex FT4, LIPD, CMP, CBCAD #### [facility] [address], [place] [id number] Monocytes/100 WBC (Bld) 11.8 % Normal [facility] Comment on above: Performed By: #### T SH reflex FT4, LIPD, CMP, CBCAD #### [facility] [address], [place] [id number] Neutrophils (Bld) [#/Vol] 4.1 10*3/uL Normal 1.5-7.8 [facility] Comment on above: Performed By: #### T SH reflex FT4, LIPD, CMP, CBCAD #### [facility] [address], [place] [id number] Neutrophils/100 WBC (Bld) 65.6 % Normal [facility] Comment on above: Performed By: #### T SH reflex FT4, LIPD, CMP, CBCAD #### [facility] [address], [place] [id number] Platelet mean volume (Bld) [Entitic vol] 10.90 fL Normal 7.50-12.50 [facility] Specialist Comment on above: Performed By: #### T SH reflex FT4, LIPD, CMP, CBCAD #### [facility] [address], [place] [id number] Platelets (Bld) [#/Vol] 212 10*3/uL Normal 140-400 [facility] Specialist Comment on above: Performed By: #### T SH reflex FT4, LIPD, CMP, CBCAD #### [facility] [address], [place] [id number] RBC (Bld) [#/Vol] 4.75 10*6/uL Normal 3.90-5.20 [facility] Specialist Comment on above: Performed By: #### T SH reflex FT4, LIPD, CMP, CBCAD #### [facility] [address], [place] [id number] RDW-SD 47.4 fL Normal 37.0-50.0 [facility] Specialist Comment on above: Performed By: #### T SH reflex FT4, LIPD, CMP, CBCAD #### [facility] [address], [place] [id number] WBC (Bld) [#/Vol] 6.3 10*3/uL Normal 3.8-11.0 [facility] Comment on above: Performed By: #### T SH reflex FT4, LIPD, CMP, CBCAD #### [facility] [address], [place] [id number] Comprehensive Metabolic Pane brie 04-05-2021 Albumin [Mass/Vol] 4.1 g/dL Normal 3.6-5.1 [facility] Comment on above: Performed By: #### T SH reflex FT4, LIPD, CMP, CBCAD #### [facility] [address], [place] [id number] Albumin/Globulin [Mass ratio] 1.5 {ratio} Normal 1.0-2.5 [facility] Comment on above: Performed By: #### T SH reflex FT4, LIPD, CMP, CBCAD #### [facility] [address], [place] [id number] ALP [Catalytic activity/Vol] 125 U/L High 35-119 [facility] Specialist Comment on above: Performed By: #### T SH reflex FT4, LIPD, CMP, CBCAD #### [facility] [address], [place] [id number] ALT [Catalytic activity/Vol] 43 U/L High 6-33 [facility] Specialist Comment on above: Result Comment: 01/12 Female reference range changed. Performed By: #### T SH reflex FT4, LIPD, CMP, CBCAD #### [facility] [address], [place] [id number] Anion gap [Moles/Vol] 20 mmol/L Normal 12-20 [facility] Specialist Comment on above: Result Comment: Effe ctive 02/17/2019 reference range changed. Performed By: #### T SH reflex FT4, LIPD, CMP, CBCAD #### [facility] [address], [place] [id number] AST [Catalytic activity/Vol] 42 U/L High 9-34 [facility] Specialist Comment on above: Result Comment: Spec imen is hemolyzed. Results may be affected. Performed By: #### T SH reflex FT4, LIPD, CMP, CBCAD #### [facility] [address], [place] [id number] Bilirubin [Mass/Vol] 0.41 mg/dL Normal 0.30-1.20 [facility] Comment on above: Performed By: #### T SH reflex FT4, LIPD, CMP, CBCAD #### [facility] [address], [place] [id number] BUN/CREA 25 Ratio High 6-22 [facility] Specialist Comment on above: Performed By: #### T SH reflex FT4, LIPD, CMP, CBCAD #### [facility] [address], [place] [id number] Calcium [Mass/Vol] 10.3 mg/dL High 8.6-10.2 [facility] Specialist Comment on above: Performed By: #### T SH reflex FT4, LIPD, CMP, CBCAD #### [facility] [address], [place] [id number] Chloride [Moles/Vol] 105 mmol/L Normal 98-107 [facility] Comment on above: Performed By: #### T SH reflex FT4, LIPD, CMP, CBCAD #### [facility] [address], [place] [id number] CO2 [Moles/Vol] 24 mmol/L Normal 20-31 [facility] Comment on above: Performed By: #### T SH reflex FT4, LIPD, CMP, CBCAD #### [facility] [address], [place] [id number] Creatinine [Mass/Vol] 1.2 mg/dL Normal 0.6-1.4 [facility] Comment on above: Performed By: #### T SH reflex FT4, LIPD, CMP, CBCAD #### [facility] [address], [place] [id number] eGFRAA 55 mL/min/1.73m2 Low >60 [facility] Comment on above: Performed By: #### T SH reflex FT4, LIPD, CMP, CBCAD #### [facility] [address], [place] [id number] eGFRNAA 45 mL/min/1.73m2 Low >60 [facility] Specialist Comment on above: Performed By: #### T SH reflex FT4, LIPD, CMP, CBCAD #### [facility] [address], [place] [id number] Globulin (S) [Mass/Vol] 2.8 g/dL Normal 1.9-3.7 [facility] Comment on above: Performed By: #### T SH reflex FT4, LIPD, CMP, CBCAD #### [facility] [address], [place] [id number] Glucose [Mass/Vol] 118 mg/dL High 65-99 [facility] Comment on above: Result Comment: For FASTING Glucose --- ADA reference ranges: Normal 65-99 mg/dl Prediabetes 100-125 Diabetes >/= 126 Performed By: #### T SH reflex FT4, LIPD, CMP, CBCAD #### [facility] [address], [place] [id number] Potassium [Moles/Vol] 5.5 mmol/L Normal 3.5-5.5 [facility] lag[facility] Comment on above: Result Comment: Spec imen is hemolyzed. Results may be affected. Performed By: #### T SH reflex FT4, LIPD, CMP, CBCAD #### [facility] [address], [place] [id number] Protein [Mass/Vol] 6.9 g/dL Normal 6.1-8.1 Monie buenrostro [place] [facility] Comment on above: Performed By: #### T SH reflex FT4, LIPD, CMP, CBCAD #### [facility] [address], [place] [id number] Sodium [Moles/Vol] 143 mmol/L Normal 135-146 [facility] Comment on above: Performed By: #### T SH reflex FT4, LIPD, CMP, CBCAD #### [facility] [address], [place] [id number] Urea nitrogen [Mass/Vol] 29 mg/dL High 7-25 [facility] Specialist Comment on above: Performed By: #### T SH reflex FT4, LIPD, CMP, CBCAD #### [facility] [address], [place] [id number] Lipid Panelon 04-05-2021 Cholesterol [Mass/Vol] 155 mg/dL Normal 125-200 [facility] Specialist Comment on above: Result Comment: Low risk < 200mg/dL Borderline risk 201-239 mg/dl High risk > or equal to 240 Performed By: #### T SH reflex FT4, LIPD, CMP, CBCAD #### [facility] [address], [place] [id number] Cholesterol in HDL [Mass/Vol] 52 mg/dL Normal >40 [facility] Specialist Comment on above: Result Comment: High Cardiovascular Risk HDL <40 mg/dL Low Cardiovascular Risk HDL > or equal to 60 mg/dl Performed By: #### T SH reflex FT4, LIPD, CMP, CBCAD #### [facility] [address] [facility] [place] [place] [id number] Cholesterol in LDL [Mass/Vol] 80 mg/dL Normal [facility] Comment on above: Result Comment: LDL ATP III CLASSIFICATION LDL less than 100 mg/dl Optimal LDL 100-129 mg/dl Near or above optimal LDL 130-159 Borderline high LDL 160-189 High LDL greater than 189 mg/dl Very High Performed By: #### T SH reflex FT4, LIPD, CMP, CBCAD #### [facility] [address], [place] [id number] Cholesterol in VLDL [Mass/Vol] 23 mg/dL Normal [facility] Comment on above: Performed By: #### T SH reflex FT4, LIPD, CMP, CBCAD #### [facility] [address], [place] [id number] Cholesterol.total/Cho lesterol in HDL [Mass ratio] 3 {ratio} Normal [facility] Comment on above: Performed By: #### T SH reflex FT4, LIPD, CMP, CBCAD #### [facility] [address], [place] [id number] Triglyceride [Mass/Vol] 114 mg/dL Normal 30-150 [facility] Specialist Comment on above: Result Comment: TRIG ATPIII CLASSIFICATIONS TRIG less than 150 mg/dl Normal TRIG 150-199 mg/dl Borderline High TRIG 200-500 mg/dl High TRIG greather than 500 mg/dl Very High Performed By: #### T SH reflex FT4, LIPD, CMP, CBCAD #### [facility] [address], [place] [id number] TSH w/ Reflex to Free T4on 0 - TSH 2.830 uIU/mL Normal 0.400-4.500 [facility] Specialist Comment on above: Performed By: #### T SH reflex FT4, LIPD, CMP, CBCAD #### [facility] [address], [place] [id number] Basophils Auto (Bld) [#/Vol] Ordered By: Tru Urbina on 03-15-2021 Basophils (Bld) [#/Vol] 0.0 10*3/uL 0.0-0.2 [facility] Basophils/100 WBC Auto (Bld) Ordered By: Tru Urbina on 03-15-2021 Basophils/100 WBC (Bld) 0.2 % [facility] Blood hemoglobin measurement (mass/volume)Ordered By: Tru Urbina on 03-15-2021 Hemoglobin (Bld) [Mass/Vol] 14.2 g/dL 11.8-15.4 [facility] Blood leukocytes automated c ount (number/volume)Ordered By: Tru Urbina on 03-15-2021 WBC (Bld) [#/Vol] 8.8 10*3/uL 4.5-11.0 [facility] Eosinophils Auto (Bld) [#/Vo l]Ordered By: Tru Urbina on 03-15-2021 Eosinophils (Bld) [#/Vol] 0.1 10*3/uL 0.0-0.45 [facility] Eosinophils/100 WBC Auto (Bl d)Ordered By: Tru Urbina on 03-15-2021 Eosinophils/100 WBC (Bld) 0.8 % [facility] Erythrocyte distribution wid th Auto (RBC) [Ratio]Ordered By: Tru Urbina on 03-15-2021 Erythrocyte distribution width (RBC) [Ratio] 13.3 % 11.9-15.3 [facility] Glucose Glucometer (BldC) [M ass/Vol]Ordered By: Bill Trammell on 03-15-2021 Glucose [Mass/Vol] 115 mg/dL [facility] Comment on above: Random Glucose Refer ence Range is dependent on time and content of last meal. Glucose of more than 200 mg/dL in a nonstressed, ambulatory subject supports the diagnosis of Diabetes Mellitus. Hematocrit Auto (Bld) [Volum e fraction]Ordered By: Tru Urbina on 03-15-2021 Hematocrit (Bld) [Volume fraction] 42.6 % 34.0-46.4 [facility] Laboratory - Hematology and Cell countsOrdered By: Tru Urbina on 03-15-2021 Nucleated RBC/100 WBC (Bld) [Ratio] 0.1 % 0-0.5 [facility] Lymphocytes Auto (Bld) [#/Vo l]Ordered By: Tru Urbina on 03-15-2021 Lymphocytes (Bld) [#/Vol] 0.9 10*3/uL 1.00-4.8 [facility] Lymphocytes/100 WBC Auto (Bl d)Ordered By: Tru Urbina on 03-15-2021 Lymphocytes/100 WBC (Bld) 10.4 % [facility] MCH Auto (RBC) [Entitic mass ]Ordered By: Tru Urbina on 03-15-2021 MCH (RBC) [Entitic mass] 31.0 pg 24.7-34.3 [facility] MCHC Auto (RBC) [Mass/Vol]Or dered By: Tru Urbina on 03-15-2021 MCHC (RBC) [Mass/Vol] 33.2 g/dL 32.0-35.0 [facility] MCV Auto (RBC) [Entitic vol] Ordered By: Tru Urbina on 03-15-2021 MCV (RBC) [Entitic vol] 93.4 fL 80-100 [facility] Monocytes Auto (Bld) [#/Vol] Ordered By: Tru Urbina on 03-15-2021 Monocytes (Bld) [#/Vol] 1.1 10*3/uL 0.0-0.8 [facility] Monocytes/100 WBC Auto (Bld) Ordered By: rTu Urbina on 03-15-2021 Monocytes/100 WBC (Bld) 12.4 % [facility] Neutrophils Auto (Bld) [#/Vo l]Ordered By: Tru Urbina on 03-15-2021 Neutrophils (Bld) [#/Vol] 6.7 10*3/uL 1.8-7.7 [facility] Neutrophils/100 WBC Auto (Bl d)Ordered By: Tru Urbina on 03-15-2021 Neutrophils/100 WBC (Bld) 76.2 % [facility] No Panel InformationOrdered By: Bill Trammell on 03-15-2021 Bedside Glucose Comment Glu2: cleaned meter [facility] Platelet mean volume Auto (B ld) [Entitic vol]Ordered By: Tru Urbina on 03-15-2021 Platelet mean volume (Bld) [Entitic vol] 8.6 fL 6.3-10.7 [facility] Platelets Auto (Bld) [#/Vol] Ordered By: Tru Urbina on 03-15-2021 Platelets (Bld) [#/Vol] 171 10*3/uL 150-450 [facility] RBC Auto (Bld) [#/Vol]Ordere d By: Tru Urbina on 03-15-2021 RBC (Bld) [#/Vol] 4.57 10*6/uL 3.60-5.00 [facility] Creatinine and Glomerular fi ltration rate.predicted panel (S/P/Bld)Ordered By: Alpesh Lind on 02-22-2021 Creatinine [Mass/Vol] 1.10 mg/dL 0.44-1.03 [facility] Estimated glomerular filtrat ion rate (GFR) non- AmericanOrdered By: Alpesh Lind on 02-22-2021 GFR/1.73 sq M.predicted among non-blacks MDRD (S/P/Bld) [Vol rate/Area] 49 mL/Min [facility] No Panel InformationOrdered By: Alpesh Lind on 02-22-2021 Estimated GFR () 59 mL/Min [facility] Comment on above: GFR estimated refere nce range: According to KDOQI guidelines, <60 ml/min/1.73m2 is sufficient to diagnose a patient with chronic kidney disease. Pharmacy Creatinine Clearance (Chem 43.28 [facility] Serum or plasma calcium marcelle urement (mass/volume)Ordered By: Alpesh Lind on 02-22-2021 Calcium [Mass/Vol] 10.0 mg/dL 8.2-10.2 [facility] Serum or plasma chloride chandrika surement (moles/volume)Ordered By: Alpesh Lind on 02-22-2021 Chloride [Moles/Vol] 104 mmol/L 95-114 [facility] Serum or plasma glucose marcelle urement (mass/volume)Ordered By: Alpesh Lind on 02-22-2021 Glucose [Mass/Vol] 110 mg/dL 70-100 [facility] Comment on above: ADA recommended refe rence rangeRandom Glucose Reference Range is dependent on time and content of last meal. Glucose of more than 200 mg/dL in a nonstressed, ambulatory subject supports the diagnosis of Diabetes Mellitus. Serum or plasma potassium me asurement (moles/volume)Ordered By: Alpesh Lind on 02-22-2021 Potassium [Moles/Vol] 4.5 mmol/L 3.5-5.1 [facility] Serum or plasma sodium measu rement (moles/volume)Ordered By: Alpesh Lind on 02-22-2021 Sodium [Moles/Vol] 139 mmol/L 136-146 [facility] Serum or plasma total carbon dioxide measurement (moles/volume)Ordered By: Alpesh Lind on 02-22-2021 CO2 [Moles/Vol] 24.4 mmol/L 22.0-30.0 [facility] Serum or plasma urea nitroge n measurement (mass/volume)Ordered By: Alpesh Lind on 02-22-2021 Urea nitrogen [Mass/Vol] 26 mg/dL 11-04 [facility] PROF 14(COMP METB)on 02-09- 021 Albumin [Mass/Vol] 3.3 g/dL Critically low 3.5-5.0 [facility] Comment on above: Performed By: #### C MP ####[facility] [address] [address]Dr. Krystal Lewis Albumin/Globulin [Mass ratio] 0.9 {ratio} Normal [facility] Comment on above: Performed By: #### C MP ####[facility] [address] [address]Dr. Krystal Lewis ALP [Catalytic activity/Vol] 87 U/L Normal 38-126 [facility] Comment on above: Performed By: #### C MP ####[facility] [address] [place] [address]Dr. Krystal Lewis ALT [Catalytic activity/Vol] 18 U/L Normal 9-52 [facility] Comment on above: Performed By: #### C MP ####[facility] [address] [place] [address]DrHilary Lewis Anion gap [Moles/Vol] 10.8 mmol/L Normal [facility] Comment on above: Performed By: #### C MP ####[facility] [address] [address]Dr. Krystal Lewis AST [Catalytic activity/Vol] 16 U/L Normal 14-[address] [facility] Comment on above: Performed By: #### C MP ####[facility] [address] [place], [place] [address]Dr. Krystal Joshua Bilirubin [Mass/Vol] 0.5 mg/dL Normal 0.2-1.[address] [facility] Comment on above: Performed By: #### C MP ####[facility] [address] [place], [place] [address]Dr. Georgettedonell Joshua Calcium [Mass/Vol] 9.8 mg/dL Normal 8.4-10.2 [facility] Comment on above: Performed By: #### C MP ####[facility] [address] [place], [place] [address]Dr. Krystal Lewis Chloride [Moles/Vol] 104 mmol/L Normal 98-[address] [facility] Comment on above: Performed By: #### C MP ####[facility] [address] [place], [place] [address]Dr. Krystal Joshua CO2 [Moles/Vol] 29.8 mmol/L Normal 22.0-30.0 [facility] Comment on above: Performed By: #### C MP ####[facility] [address] [place], [place] [address]Dr. Krystal Lewis Creatinine [Mass/Vol] 1.01 mg/dL Normal 0.52-1.04 [facility] Comment on above: Performed By: #### C MP ####[facility] [address] [place], [place] [address]Dr. Krystal Lewis EGFR-AF TURKMEN >60 Normal >=60 [facility] Comment on above: Performed By: #### C MP ####[facility] [address] [place], [place] [address]Dr. Krystal Lewis EGFR-NON AF TURKMEN 54 mL/min/1.73m2 Critically low >=[address] [facility] Comment on above: Performed By: #### C MP ####[facility] [address] [place], [place] [address]Dr. Krystal Lewis Globulin (S) [Mass/Vol] 3.5 g/dL Normal [facility] Comment on above: Performed By: #### C MP ####[facility] [address] [address]Dr. Georgettedonell Joshua Glucose [Mass/Vol] 93 mg/dL Normal 74-106 [facility] Comment on above: Performed By: #### C MP ####[facility] [address] [place] [address]Dr. Krystal Lewis Potassium [Moles/Vol] 4.6 mmol/L Normal 3.4-5.0 [facility] Comment on above: Performed By: #### C MP ####[facility] [address] [place], [place] [address]Dr. Krystal Lewis Protein [Mass/Vol] 6.8 g/dL Normal 6.1-8.2 [facility] Comment on above: Performed By: #### C MP ####[facility] [address] [place], [place] [address]Dr. Krystal Lewis Sodium [Moles/Vol] 140 mmol/L Normal 137-145 [facility] Comment on above: Performed By: #### C MP ####[facility] [address] [place], [place] [address]Dr. Krystal Lewis Urea nitrogen [Mass/Vol] 27.0 mg/dL Critically high 7.0-17.0 [facility] Comment on above: Performed By: #### C MP ####[facility] [address] [place], [place] [address]Dr. Krystal Lewis Urea nitrogen/Creatinine [Mass ratio] 26.7 mg/mg Normal [facility] Comment on above: Performed By: #### C MP ####[facility] [address] [place], [place] [address]Dr. Krystal Lewis CARDIAC STRESS TESTon 2020 CARDIAC STRESS TEST [facility] [place], [place] NAME: ISABELLA HORNE DATE OF : MEDICAL REC#: [id number] INTELLECTUAL PROPERTY LEGAL ASSISTANT: 142IRINA CHRISTIAN ADMIT DATE: 01/24/2021 08:17:00 FRUIT COORDINATOR DATE: 01/24/2021 11:00 DICTATING PHYSICIAN: CHRISTINA BARROSO DICTATION DATE: 01/24/2021 10:00 LEXISCAN STRESS TEST [...] separately. Electronically Authenticated and Edited by: Christina Barroso MD on 01/24/2021 07:09 PM [facility] Signed and Approved by: DR CHRISTINA BARROSO 01/24/2021 19:09:00 Normal [facility] STRESS/REST MULTIon 01-24 NM STRESS/REST MULTI Patient: ISABELLA HORNE Exam Date: 01/24/2021 : 1950 Gender:F Ordering : DR GERMANIA HELTON M.D. Admission #: [id number] Family : Order #: [id number] CLICK HERE TO VIEW EXAM RADIOLOGY REPORT [...] study was normal per attending physician Dr. Barroso . For more details please see separate cardiac stress test report. FINDINGS: QUALITY OF STUDY: Good. PERFUSION DEFECT: LOCATION: Mid-anterior. Mid-anteroseptal. Apical anterior. [place]. SIZE: Medium (3-4 segments). SEVERITY: Severe. TYPE: Persistent. WALL MOTION: Akinesis: Mid-anterior. [place]. LV SIZE: Normal. 107 mL. TID / TCD: None; 0.7 LVEF: Abnormal. Calculated EF 44%. SUMMARY: Myocardial perfusion imaging study has ABNORMAL findings. CONCLUSION: 1. 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 Low left ventricular ejection fraction of 44% 3. Normal exercise test Dictated by: Jhonny Salas MD on 01/24/2021 at 14:03 Approved by: Jhonny Salas MD on 01/24/2021 at 14:[address] [facility] PROF CHEM 8 (BAS METB)on Anion gap [Moles/Vol] 14.1 mmol/L Normal [facility] Comment on above: Performed By: #### B MP #### [facility] [address] [place] [address] Dr. Krystal Lewis Calcium [Mass/Vol] 10.0 mg/dL Normal 8.4-10.2 [facility] Comment on above: Performed By: #### B MP #### [facility] [address] [address] [address] Krystal Lewis Chloride [Moles/Vol] 105 mmol/L Normal 98-107 [facility] Comment on above: Performed By: #### B MP #### [facility] [address] [address] [address] Krystal Lewis CO2 [Moles/Vol] 26.0 mmol/L Normal 22.0-30.0 [facility] Comment on above: Performed By: #### B MP #### [facility] [address] [address] [address] Krystal Lewis Creatinine [Mass/Vol] 1.18 mg/dL Critically high 0.52-1.04 [facility] Comment on above: Performed By: #### B MP #### [facility] [address] [address] [address] Krystal Leiws EGFR-AF TURKMEN 55 mL/min/1.73m2 Critically low >=60 [facility] Comment on above: Performed By: #### B MP #### [facility] [address] [address] [address] Krystal Lewis EGFR-NON AF TURKMEN 45 mL/min/1.73m2 Critically low >=60 [facility] Comment on above: Performed By: #### B MP #### [facility] [address] [address] [address] Krystal Lewis Glucose [Mass/Vol] 104 mg/dL Normal 74-106 [facility] Comment on above: Performed By: #### B MP #### [facility] [address] [address] [address] Krystal Lewis Potassium [Moles/Vol] 5.1 mmol/L Critically high 3.4-5.0 [facility] Comment on above: Performed By: #### B MP #### [facility] [address] [address] [address] Krystal Lewis Sodium [Moles/Vol] 140 mmol/L Normal 137-145 [facility] Comment on above: Performed By: #### B MP #### [facility] [address] [address] [address] Krystal Lewis Urea nitrogen [Mass/Vol] 29.0 mg/dL Critically high 7.0-17.0 [facility] Comment on above: Performed By: #### B MP #### [facility] [address] [address] [address] Krystal Lewis Urea nitrogen/Creatinine [Mass ratio] 24.6 mg/mg Normal [facility] Comment on above: Performed By: #### B MP #### [facility] [address] [address] [address] Krystal Lewis BNPon 11-20-2020 Natriuretic peptide B (Bld) [Mass/Vol] 1293.0 pg/mL Critically high <=900.0 [facility] Comment on above: Result Comment: TEST REPEATED CRITICAL VALUE VERIFIED Performed By: #### C MADM, BNP, CMP, CRP ####[facility] [address] [address]DrHilary Lewis CARDIAC ALFREDO ADMITon 021 CK [Catalytic activity/Vol] 86 U/L Normal 30-[address] [facility] Comment on above: Performed By: #### C MADM, BNP, CMP, CRP ####[facility] [address] [address]Dr. Krystal Lewis CK.MB [Mass/Vol] ng/mL Normal <=2.37 [facility] Comment on above: Performed By: #### C MADM, BNP, CMP, CRP ####[facility] [address] [place], [place] [address]Dr. Krystal Lewis HSTROP 26.5 pg/mL Normal 4.0-35.[address] [facility] Comment on above: Result Comment: CUT- OFF POINTS HAVE BEEN ESTABLISHED BASED ON THE FOURTH UNIVERSAL DEFINITIONS OF MYOCARDIAL INFARCTION. THE UPPER REFERENCE LIMIT (URL) OF TROPONIN, DEFINED THE 99TH PERCENTILE OF cTnI DISTRIBUTION IN A REFERENCE POPULATION, HAS BEEN CONFIRMED THE DECISION THRESHOLD FOR DC DIAGNOSIS. Performed By: #### C MADM, BNP, CMP, CRP ####[facility] [address] [address]DrHilary Lewis ANTONELLA 77.0 ng/mL Critically high <=61.5 [facility] Comment on above: Performed By: #### C MADM, BNP, CMP, CRP ####[facility] [address] [address]Dr. Krystal Lewis CBC AUTO DIFFon 11-20-2020 BASO # 0.0 103/ul Normal 0.0-0.[address] [facility] Comment on above: Performed By: #### C BC #### [facility] [address] [address] [address] Krystal Lewis Basophils/100 WBC (Bld) 0.2 % Normal 0.2-2.0 [facility] Comment on above: Performed By: #### C BC #### [facility] [address] [place] [address] Dr. Krystal Lewis EO # 0.0 103/ul Normal 0.0-0.[address] [facility] Comment on above: Performed By: #### C BC #### [facility] [address] [place] [address] Dr. Krystal Lewis Eosinophils/100 WBC (Bld) 0.0 % Critically low 0.9-7.0 [facility] Comment on above: Performed By: #### C BC #### [facility] [address] [place] [address] Dr. Krystal Lewis Erythrocyte distribution width (RBC) [Ratio] 13.1 % Normal 11.0-15.0 [facility] Comment on above: Performed By: #### C BC #### [facility] [address] [place] [address] Dr. Krystal Lewis Hematocrit (Bld) [Volume fraction] 43.0 % Normal 36.0-48.0 [facility] Comment on above: Performed By: #### C BC #### [facility] [address] [place] [address] Dr. Krystal Lewis Hemoglobin (Bld) [Mass/Vol] 13.9 g/dL Normal 12.0-16.0 [facility] Comment on above: Performed By: #### C BC #### [facility] [address] [place] [address] Dr. Krystal Lewis IG # 0.03 10e3/ul Normal 0.00-0.[address] [facility] Comment on above: Performed By: #### C BC #### [facility] [address] [place] [address] Dr. Krystal Lewis IG % 0.7 % Critically high 0.0-0.5 [facility] Comment on above: Performed By: #### C BC #### [facility] [address] [place] [address] Dr. Krystal Lewis LYMPH # 0.6 103/ul Critically low 1.2-3.8 [facility] Comment on above: Performed By: #### C BC #### [facility] [address] [place] [address] Dr. Krystal Lewis Lymphocytes/100 WBC (Bld) 13.8 % Critically low 20.5-60.0 [facility] Comment on above: Performed By: #### C BC #### [facility] [address] [place] [address] Dr. Krystal Lewis MANUAL DIFF REQ NO Normal [facility] Comment on above: Performed By: #### C BC #### [facility] [address] [place] [address] Dr. Krystal Lewis MCH (RBC) [Entitic mass] 30.6 pg Normal 26.7-34.0 [facility] Comment on above: Performed By: #### C BC #### [facility] [address] [place] [address] Dr. Krystal Lewis MCHC (RBC) [Mass/Vol] 32.3 g/dL Normal 29.9-35.[address] [facility] Comment on above: Performed By: #### C BC #### [facility] [address] [place] [address] Dr. Krystal Lewis MCV (RBC) [Entitic vol] 94.7 fL Normal 81.0-99.0 [facility] Comment on above: Performed By: #### C BC #### [facility] [address] [place] [address] Dr. Krystal Lewis MONO # 0.4 103/ul Normal 0.3-0.[address] [facility] Comment on above: Performed By: #### C BC #### [facility] [address] [place] [address] Dr. Krystal Lewis Monocytes/100 WBC (Bld) 9.4 % Normal 1.7-12.0 [facility] Comment on above: Performed By: #### C BC #### [facility] [address] [place] [address] Dr. Krystal Lewis NEUT # 3.3 103/ul Normal 1.4-6.5 [facility] Comment on above: Performed By: #### C BC #### [facility] [address] [place] [address] Dr. Krystal Lewis Neutrophils/100 WBC (Bld) 75.9 % Critically high 43.0-75.0 [facility] Comment on above: Performed By: #### C BC #### [facility] [address] [address] [address] Krystal Lewis Platelet mean volume (Bld) [Entitic vol] 10.3 fL Normal 9.5-13.5 [facility] Comment on above: Performed By: #### C BC #### [facility] [address] [place] [address] Dr. Krystal Lewis PLT 128 103/ul Critically low 150-450 [facility] Comment on above: Performed By: #### C BC #### [facility] [address] [place] [address] Dr. Krystal Lewis RBC 4.54 106/ul Normal 4.20-5.40 [facility] Comment on above: Performed By: #### C BC #### [facility] [address] [place] [address] Dr. Krystal Lewis WBC 4.3 103/ul Normal 4.0-11.0 [facility] Comment on above: Performed By: #### C BC #### [facility] [address] [place] [address] Dr. Krystal Lewis CRPon 11-20-2020 CRP 6.4 mg/dL Critically high <=1.0 [facility] Comment on above: Performed By: #### C MADM, BNP, CMP, CRP #### [facility] [address] [place] [address] Dr. Krystal Lewis PROF 14(COMP METB)on 021 Albumin [Mass/Vol] 2.9 g/dL Critically low 3.5-5.0 [facility] Comment on above: Performed By: #### C MADM, BNP, CMP, CRP #### [facility] [address] [address] [address] Krystal Lewis Albumin/Globulin [Mass ratio] 0.7 {ratio} Normal [facility] Comment on above: Performed By: #### C MADM, BNP, CMP, CRP #### [facility] [address] [address] [address] Krystal Lewis ALP [Catalytic activity/Vol] 54 U/L Normal 38-126 [facility] Comment on above: Performed By: #### C MADM, BNP, CMP, CRP #### [facility] [address] [address] [address] Krystal Lewis ALT [Catalytic activity/Vol] 18 U/L Normal 9-52 [facility] Comment on above: Performed By: #### C MADM, BNP, CMP, CRP #### [facility] [address] [place] [address] Dr. Krystal Lewis Anion gap [Moles/Vol] 14.4 mmol/L Normal [facility] Comment on above: Performed By: #### C MADM, BNP, CMP, CRP #### [facility] [address] [address] [address] Krystal Lewis AST [Catalytic activity/Vol] 36 U/L Normal 14-36 [facility] Comment on above: Performed By: #### C MADM, BNP, CMP, CRP #### [facility] [address] [place] [address] Dr. Krystal Lewis Bilirubin [Mass/Vol] 0.7 mg/dL Normal 0.2-1.3 [facility] Comment on above: Performed By: #### C MADM, BNP, CMP, CRP #### [facility] [address] [place] [address] Dr. Krystal Lewis Calcium [Mass/Vol] 9.3 mg/dL Normal 8.4-10.2 [facility] Comment on above: Performed By: #### C MADM, BNP, CMP, CRP #### [facility] [address] [place] [address] Dr. Krystal Lewis Chloride [Moles/Vol] 98 mmol/L Normal 98-107 [facility] Comment on above: Performed By: #### C MADM, BNP, CMP, CRP #### [facility] [address] [address] [address] Krystal Lewis CO2 [Moles/Vol] 27.7 mmol/L Normal 22.0-30.0 [facility] Comment on above: Performed By: #### C MADM, BNP, CMP, CRP #### [facility] [address] [place] [address] Dr. Krystal Lewis Creatinine [Mass/Vol] 1.23 mg/dL Critically high 0.52-1.04 [facility] Comment on above: Performed By: #### C MADM, BNP, CMP, CRP #### [facility] [address] [place] [address] Dr. Krystal Lewis EGFR-AF TURKMEN 52 mL/min/1.73m2 Critically low >=60 [facility] Comment on above: Performed By: #### C MADM, BNP, CMP, CRP #### [facility] [address] [place] [address] Dr. Krystal Lewis EGFR-NON AF TURKMEN 43 mL/min/1.73m2 Critically low >=[address] [facility] Comment on above: Performed By: #### C MADM, BNP, CMP, CRP #### [facility] [address] [place] [address] Dr. Krystal Lewis Globulin (S) [Mass/Vol] 4.1 g/dL Normal [facility] Comment on above: Performed By: #### C MADM, BNP, CMP, CRP #### [facility] [address] [place] [address] Dr. Krystal Lewis Glucose [Mass/Vol] 154 mg/dL Critically high 74-106 [facility] Comment on above: Performed By: #### C MADM, BNP, CMP, CRP #### [facility] [address] [place] [address] Dr. Krystal Lewis Potassium [Moles/Vol] 4.1 mmol/L Normal 3.4-5.0 [facility] Comment on above: Performed By: #### C MADM, BNP, CMP, CRP #### [facility] [address] [address] [address] Krystal Lewis Protein [Mass/Vol] 7.0 g/dL Normal 6.1-8.2 [facility] Comment on above: Performed By: #### C MADM, BNP, CMP, CRP #### [facility] [address] [address] [address] Krystal Lewsi Sodium [Moles/Vol] 136 mmol/L Critically low 137-145 [facility] Comment on above: Performed By: #### C MADM, BNP, CMP, CRP #### [facility] [address] [address] [address] Krystal Lewis Urea nitrogen [Mass/Vol] 32.0 mg/dL Critically high 7.0-17.0 [facility] Comment on above: Performed By: #### C MADM, BNP, CMP, CRP #### [facility] [address] [address] [address] Krystal Lewis Urea nitrogen/Creatinine [Mass ratio] 26.0 mg/mg Normal [facility] Comment on above: Performed By: #### C MADM, BNP, CMP, CRP #### [facility] [address] [address] [address] Krystal Lewis XR CHEST 1 Von [...] opacities, consider pneumonia Electronically authenticated by: JHONNY SALAS Date: 2020-11-20 13:55 Normal [facility] AUD - Assessmentson 10-27-19 AUD - Assessments [id number] D:127 Normal [facility] Coding Summary.on 10-27-2019 Coding Summary. CODING DATE: 020 [facility] STATUS: PAYOR: Medicare APC DESCRIPTION [id number] [...] Jay CphT Date Saved: 10/27/2019 03:37 pm [facility] Outside Records Officeon Outside Records Office [id number] D:127 [facility] AUD - Orderson 10-23-2019 AUD - Orders [id number]#1.00C D:127 [facility] AUD - Otheron 10-23-2019 AUD - Other [id number]#1.00C D:127 [facility] Consenton 10-23-2019 Consent [id number] D:127 [facility] Outside Records Officeon Outside Records Office [id number] D:127 [facility] Vital Signs Date Time Vital Sign Value Performing Clinician Facility 10-22-2024 13:36-0400 Body height 162.6 cm Ariel Lopez DPM Work Phone: [facility] 10-22-2024 13:36-0400 Body mass index (BMI) [Ratio] 29.18 kg/m2 Ariel Lopez DPM Work Phone: [facility] 10-22-2024 13:36-0400 Body weight 77.11 kg Ariel Lopez DPM Work Phone: [facility] 10-06-2024 15:05-0400 Body height 162.6 cm Hong Schilling MD Work Phone: [facility] 10-06-2024 15:05-0400 Body mass index (BMI) [Ratio] 29.18 kg/m2 Hong Schilling MD Work Phone: [facility] 10-06-2024 15:05-0400 Body weight 77.11 kg Hong Schilling MD Work Phone: [facility] 10-06-2024 15:05-0400 Diastolic blood pressure 68 mm[Hg] Hong Schilling MD Work Phone: [facility] 10-06-2024 15:05-0400 Heart rate 56 /min Hong Schilling MD Work Phone: [facility] 10-06-2024 15:05-0400 SaO2% (BldA) [Mass fraction] 96 % Hong Schilling MD Work Phone: [facility] 10-06-2024 15:05-0400 Systolic blood pressure 130 mm[Hg] Hong Schilling MD Work Phone: [facility] 09-23-2024 13:39-0400 Body height 162.6 cm Hong Schilling MD Work Phone: [facility] 09-23-2024 13:39-0400 Body mass index (BMI) [Ratio] 29.35 kg/m2 Hong Schilling MD Work Phone: [facility] 09-23-2024 13:39-0400 Body weight 77.56 kg Hong Schilling MD Work Phone: [facility] 09-23-2024 13:39-0400 Diastolic blood pressure 60 mm[Hg] Hong Schilling MD Work Phone: [facility] 09-23-2024 13:39-0400 Heart rate 62 /min Hong Schilling MD Work Phone: [facility] 09-23-2024 13:39-0400 Respiratory rate 16 /min Hong Schilling MD Work Phone: [facility] 09-23-2024 13:39-0400 SaO2% (BldA) [Mass fraction] 96 % Hong Schilling MD Work Phone: [facility] 09-23-2024 13:39-0400 Systolic blood pressure 128 mm[Hg] Hong Schilling MD Work Phone: [facility] 08-08-2024 11:01-0400 Body height 162.6 cm Ariel Lopez DPM Work Phone: [facility] 08-08-2024 11:01-0400 Body mass index (BMI) [Ratio] 27.98 kg/m2 Ariel Lopez DPM Work Phone: [facility] 08-08-2024 11:01-0400 Body weight 73.94 kg Ariel Lopez DPM Work Phone: [facility] 07-21-2024 10:46-0400 Body height 162.6 cm Hong Schilling MD Work Phone: [facility] 07-21-2024 10:46-0400 Body mass index (BMI) [Ratio] 27.98 kg/m2 Hong Schilling MD Work Phone: [facility] 07-21-2024 10:46-0400 Body weight 73.94 kg Hong Schilling MD Work Phone: [facility] 07-21-2024 10:46-0400 Diastolic blood pressure 78 mm[Hg] Hong Schilling MD Work Phone: [facility] 07-21-2024 10:46-0400 Heart rate 75 /min Hong Schilling MD Work Phone: [facility] 07-21-2024 10:46-0400 SaO2% (BldA) [Mass fraction] 99 % Hong Schilling MD Work Phone: [facility] 07-21-2024 10:46-0400 Systolic blood pressure 122 mm[Hg] Hong Schilling MD Work Phone: [facility] 07-16-2024 13:39-0400 Body height 162.6 cm Arielherve Lopze DPM Work Phone: [facility] 07-16-2024 13:39-0400 Body mass index (BMI) [Ratio] 28.15 kg/m2 Ariel Rusher DPM Work Phone: [facility] 07-16-2024 13:39-0400 Body weight 74.39 kg Ariel Rusher DPM Work Phone: [facility] 06-17-2024 11:23-0400 Body height 162.6 cm Jamila Carcamo MD Work Phone: [facility] 06-17-2024 11:23-0400 Body mass index (BMI) [Ratio] 28.32 kg/m2 Jamila Carcamo MD Work Phone: [facility] 06-17-2024 11:23-0400 Body weight 74.84 kg Jamila Carcamo MD Work Phone: [facility] 06-17-2024 11:23-0400 Diastolic blood pressure 52 mm[Hg] Jamila Carcamo MD Work Phone: [facility] 06-17-2024 11:23-0400 Heart rate 84 /min Jamila Carcamo MD Work Phone: [facility] 06-17-2024 11:23-0400 Systolic blood pressure 96 mm[Hg] Jamila Carcamo MD Work Phone: [facility] 04-14-2024 13:38-0500 Body height 162.6 cm Arielherve Lopez DPM Work Phone: [facility] 04-14-2024 13:38-0500 Body mass index (BMI) [Ratio] 28.32 kg/m2 Ariel Rusher DPM Work Phone: [facility] 04-14-2024 13:38-0500 Body weight 74.84 kg Ariel Rusher DPM Work Phone: [facility] 01-03-2024 09:16-0500 Body height 162.6 cm Bill Itzkowitz DO Work Phone: [facility] 01-03-2024 09:16-0500 Body mass index (BMI) [Ratio] 26.61 kg/m2 Bill Itzkowitz DO Work Phone: [facility] 01-03-2024 09:16-0500 Body weight 70.31 kg Bill Itzkowitz DO Work Phone: [facility] 01-03-2024 09:16-0500 Diastolic blood pressure 64 mm[Hg] Bill Itzkowitz DO Work Phone: [facility] 01-03-2024 09:16-0500 Systolic blood pressure 118 mm[Hg] Bill Itzkowitz DO Work Phone: [facility] 12-12-2023 15:27-0400 Body height 162.6 cm Ariel Lopez DPM Work Phone: [facility] 12-12-2023 15:27-0400 Body mass index (BMI) [Ratio] 25.92 kg/m2 Ariel Lopez DPM Work Phone: [facility] 12-12-2023 15:27-0400 Body weight 68.49 kg Ariel Lopez DPM Work Phone: [facility] 03-28-2021 11:12-0500 Body temperature 98 [degF] MD Hong Schilling Work Phone: [facility] 03-28-2021 11:12-0500 Body weight 68.58 kg MD Hong Schilling Work Phone: [facility] 03-28-2021 11:12-0500 Diastolic blood pressure 66 mm[Hg] MD Hong Schilling Work Phone: [facility] 03-28-2021 11:12-0500 Heart rate 80 /min MD Hong Schilling Work Phone: [facility] 03-28-2021 11:12-0500 Respiratory rate 20 /min MD Hong Schilling Work Phone: [facility] 03-28-2021 11:12-0500 SaO2% (BldA) [Mass fraction] 99 % MD Hong Schilling Work Phone: [facility] 03-28-2021 11:12-0500 Systolic blood pressure 109 mm[Hg] MD Hong Schilling Work Phone: [facility] 03-15-2021 15:30-0500 Diastolic blood pressure 60 mm[Hg] MD Hong Schilling Work Phone: [facility] 03-15-2021 15:30-0500 Heart rate 67 /min MD Hong Schilling Work Phone: [facility] 03-15-2021 15:30-0500 Respiratory rate 16 /min MD Hong Schilling Work Phone: [facility] 03-15-2021 15:30-0500 SaO2% (BldA) [Mass fraction] 96 % MD Hong Schilling Work Phone: [facility] 03-15-2021 15:30-0500 Systolic blood pressure 104 mm[Hg] MD Hong Schilling Work Phone: [facility] 03-15-2021 12:36-0500 Body temperature 97.6 [degF] MD Hong Schilling Work Phone: [facility] 03-15-2021 12:36-0500 Inhaled oxygen flow rate 8 L/min MD Hong Schilling Work Phone: [facility] 03-15-2021 11:17-0500 Body height 162.56 cm MD Hong Schilling Work Phone: [facility] 03-15-2021 11:17-0500 Body mass index (BMI) [Ratio] 25.7 kg/m2 MD Hong Schilling Work Phone: [facility] 03-15-2021 11:17-0500 Body weight 68.03 kg MD Hong Schilling Work Phone: [facility] 02-22-2021 14:37-0500 Diastolic blood pressure 66 mm[Hg] MD Hong Schilling Work Phone: [facility] 02-22-2021 14:37-0500 Heart rate 68 /min MD Hong Schilling Work Phone: [facility] 02-22-2021 14:37-0500 Respiratory rate 16 /min MD Hong Schilling Work Phone: [facility] 02-22-2021 14:37-0500 SaO2% (BldA) [Mass fraction] 97 % MD Hong Schilling Work Phone: [facility] 02-22-2021 14:37-0500 Systolic blood pressure 129 mm[Hg] MD Hong Schilling Work Phone: [facility] 02-22-2021 13:52-0500 Inhaled oxygen flow rate 6 L/min MD Hong Schilling Work Phone: [facility] 02-22-2021 12:14-0500 Body mass index (BMI) [Ratio] 25 kg/m2 MD Hong Schilling Work Phone: [facility] 02-22-2021 11:11-0500 Body height 162.56 cm MD Hong Schilling Work Phone: [facility] 02-22-2021 11:11-0500 Body weight 66.22 kg MD Hong Schilling Work Phone: [facility] 02-22-2021 10:19-0500 Body temperature 98.1 [degF] MD Hong Schilling Work Phone: [facility] 12-31-2020 15:13-0500 Body height 162.56 cm MD Hong Schilling Work Phone: [facility] Encounters Encounter Date Encounter Type Care Provider Facility Start: 10-22-2024 End: 10-22-2024 Bamboo flowsheet Ariel Lopez DPM Work Phone: [facility] Start: 10-22-2024 End: 10-22-2024 Bamboo flowsheet [facility] Start: 10-22-2024 End: 10-22-2024 ambulatory ARIEL Han MARCELLO Not Available Start: 10-22-2024 End: 10-22-2024 Patient encounter procedure [facility] Comment on above: Onychodystrophy (Tesha buzz Dx); Onychomycosis; Type II or unspecified type diabetes mellitus with neurological manifestations, not stated as uncontrolled(250.60) ([facility]) Start: 10-06-2024 End: 10-06-2024 Office outpatient visit 25 minutes Hong Schilling MD Work Phone: [facility] Comment on above: Infection of index f real (Primary Dx); Swelling of index finger Start: 10-06-2024 End: 10-06-2024 ambulatory HONG SCHILLING Not Available Start: 10-06-2024 End: 10-06-2024 Bamboo flowsdevin Schilling MD Work Phone: [facility] Start: 10-06-2024 End: 10-06-2024 Bamboo flowsdevin Schilling MD Work Phone: [facility] Start: 10-01-2024 End: 10-01-2024 ambulatory ARIEL LOPEZ Not Available Start: 10-01-2024 End: 10-01-2024 Patient encounter procedure [facility] Comment on above: Asymmetrical sensori neural hearing loss (Primary Dx) Start: 09-23-2024 End: 09-23-2024 Bamboo flowsdevin Schilling MD Work Phone: [facility] Start: 09-23-2024 End: 09-23-2024 Bamboo flowsheet Hong Schilling MD Work Phone: [facility] Start: 09-23-2024 End: 09-23-2024 ambulatory HONG SCHILLING Not Available Start: 09-23-2024 End: 09-23-2024 Office outpatient visit 25 minutes Hong Schilling MD Work Phone: [facility] Comment on above: Infection of index f real (Primary Dx); Chronic kidney disease, stage 3a ([facility]) Start: 09-17-2024 End: 09-17-2024 ambulatory ARIEL LOPEZ Not Available Start: 09-17-2024 End: 09-17-2024 Patient encounter procedure [facility] Comment on above: Asymmetrical sensori neural hearing loss (Primary Dx) Start: 08-25-2024 End: 08-26-2024 Telephone encounter Ariel Lopez DPM Work Phone: [facility] Comment on above: Advice Only (Keeping DM shoes) Start: 08-18-2024 End: 08-18-2024 Bamboo flowsheet Yanni Muller CCC-A Work Phone: [facility] Start: 08-18-2024 End: 08-18-2024 Bamboo flowsheet Yanni Muller CCC-A Work Phone: [facility] Start: 08-18-2024 End: 08-18-2024 Clinical Support Yanni Muller CCC-A Work Phone: [facility] Comment on above: Asymmetrical sensori neural hearing loss (Primary Dx) Start: 08-08-2024 End: 08-08-2024 Bamboo flowsheet Ariel Lopez DPM Work Phone: [facility] Start: 08-08-2024 End: 08-08-2024 Bamboo flowsheet Ariel Lopez DPM Work Phone: [facility] Start: 08-08-2024 End: 08-08-2024 ambulatory ARIEL LOPEZ Not Available Start: 08-08-2024 End: 08-08-2024 Postop follow up visit related to original px Ariel Lopez DPM Work Phone: [facility] Comment on above: 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, not stated as uncontrolled(250.60) ([facility]) (Primary Dx); Hammer toe of left foot; Corns and callosities; Contracture of toe of left foot; Peripheral vascular disease Start: 07-22-2024 End: 07-22-2024 ambulatory ARIEL LOPEZ Not Available Start: 07-22-2024 End: 07-22-2024 Bamboo flowsheet Ariel Lopez DPM Work Phone: [facility] Start: 07-22-2024 End: 07-22-2024 Bamboo flowsheet Arielherve Lopez DPM Work Phone: [facility] Start: 07-22-2024 End: 07-22-2024 Postop follow up visit related to original px Arielherve Lopez DPM Work Phone: [facility] Comment on above: 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, not stated as uncontrolled(250.60) ([facility]) (Primary Dx); Hammer toe of left foot; Corns and callosities; Contracture of toe of left foot; Peripheral vascular disease ([facility]) Start: 07-21-2024 End: 07-21-2024 Bamboo flowsdevin Schilling MD Work Phone: [facility] Start: 07-21-2024 End: 07-21-2024 Bamboo flowsdevin Schilling MD Work Phone: [facility] Start: 07-21-2024 End: 06-09-2025 Assay of hemosiderin, quant Hong Schilling MD Work Phone: [facility] Start: 07-21-2024 End: 07-21-2024 Patient encounter procedure Hong Schilling MD Work Phone: [facility] Comment on above: Routine general [facility] examination at [facility] (Primary Dx); Medicare annual wellness visit, subsequent; Acquired hypothyroidism ([facility]); Type 2 diabetes mellitus with peripheral vascular disease ([facility]); Hypercholesterolemia (CMS/HCC); Hyperlipidemia, unspecified hyperlipidemia type (CMS/HCC); Type 2 diabetes mellitus with foot ulcer ([facility]); Non-pressure chronic ulcer of other part of left foot with fat layer exposed; Pulmonary hypertension, unspecified ([facility]); Type 2 diabetes mellitus with diabetic chronic kidney disease (CMS/HCC); Chronic kidney disease, stage 3a ([facility]) ([facility]); Cardiomyopathy, unspecified; Other cardiomyopathies; Chronic diastolic (congestive) heart failure; Chronic systolic (congestive) heart failure; Hypertensive heart disease with heart failure ([facility]); Unspecified systolic (congestive) heart failure ([facility]); Vascular dementia, unspecified severity, without behavioral disturbance, psychotic disturbance, mood disturbance, and anxiety ([facility]) Start: 07-21-2024 End: 07-21-2024 ambulatory HONG SCHILLING Not Available Start: 07-16-2024 End: 07-16-2024 Bamboo flowsheet Ariel Lopez DPM Work Phone: [facility] Start: 07-16-2024 End: 07-16-2024 Bamboo flowsheet Arile Lopez DPM Work Phone: [facility] Start: 07-16-2024 End: 07-16-2024 ambulatory ARIEL LOPEZ Not Available Start: 07-16-2024 End: 07-16-2024 Office outpatient visit 15 minutes Ariel Lopez DPWilmar Work Phone: [facility] Comment on above: 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, not stated as uncontrolled(250.60) ([facility]) (Primary Dx); Onychodystrophy; Onychomycosis; Hammer toe of left foot; Corns and callosities; Contracture of toe of left foot; Peripheral vascular disease ([facility]/HCC) Start: 07-03-2024 End: 07-03-2024 ambulatory BILL CARROLLCATALINA Not Available Start: 07-02-2024 End: 07-02-2024 Clinisync Result Encounter Generic External Data Provider [facility] External Department Unsolicited Start: 07-02-2024 End: 07-02-2024 Clinisync Result Encounter Generic External Data Provider [facility] External Department Unsolicited Start: 06-25-2024 End: 06-25-2024 ambulatory EHAB [facility] Start: 06-17-2024 End: 06-17-2024 Bamboo ivette Carcamo MD Work Phone: [facility] Start: 06-17-2024 End: 06-17-2024 Rodrigo Carcamo MD Work Phone: [facility] Start: 06-17-2024 End: 06-17-2024 Office outpatient new 30 minutes Jamila Carcamo MD Work Phone: [facility] Comment on above: Asymmetric SNHL (sen sorineural hearing loss) Start: 06-17-2024 End: 06-17-2024 ambulatory JAMILA CARCAMO Not Available Start: 06-13-2024 End: 06-13-2024 Bamboo flowsheet Yanni Muller [facility] Work Phone: [facility] Start: 06-13-2024 End: 06-13-2024 Bamboo flowsheet Yanni Muller [facility]-A Work Phone: [facility] Start: 06-13-2024 End: 06-13-2024 Clinical Support Yanni Muller CCC-A Work Phone: [facility] Comment on above: Asymmetrical sensori neural hearing loss (Primary Dx); Impaired auditory discrimination, right Start: 05-15-2024 End: 05-15-2024 Clinisync Result Encounter Generic External Data Provider [facility] External Department Unsolicited Start: 05-15-2024 End: 05-15-2024 Clinisync Result Encounter Generic External Data Provider [facility] External Department Unsolicited Start: 04-14-2024 End: 04-14-2024 Bamboo flowsheet Ariel Lopez DPM Work Phone: [facility] Start: 04-14-2024 End: 04-14-2024 Bamboo flowsheet Arielherve Lopez DPM Work Phone: [facility] Start: 04-14-2024 End: 04-14-2024 ambulatory ARIEL S MARCELLOHER Not Available Start: 04-14-2024 End: 04-14-2024 Office outpatient visit 15 minutes Ariel Lopez DPM Work Phone: [facility] Comment on above: 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, not stated as uncontrolled(250.60) ([facility]) (Primary Dx); Onychodystrophy; Onychomycosis Start: 01-09-2024 End: 01-09-2024 ambulatory ARIEL S MARCELLOHER Not Available Start: 01-09-2024 End: 01-09-2024 Office outpatient visit 25 minutes Ariel Lopez DPM Work Phone: [facility] Comment on above: 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, not stated as uncontrolled(250.60) ([facility]) (Primary Dx); Ulcer of left foot with fat layer exposed ([facility]); Hammer toe of left foot; Contracture of toe of left foot; Peripheral vascular disease ([facility]) Start: 12-12-2023 End: 12-12-2023 Bamboo flowsheet Ariel Lopez DPM Work Phone: [facility] Start: 12-12-2023 End: 12-12-2023 Bamboo flowsheet Ariel Lopez DPM Work Phone: [facility] Start: 11-26-2023 End: 11-26-2023 Patient encounter procedure MD Hong Schilling Work Phone: [facility] Work Phone: Start: 11-26-2023 End: 11-26-2023 ambulatory iBll Trammell Facility:[facility] Start: 07-17-2023 Patient encounter procedure Ariel Lopez DPM Work Phone: [facility] Start: 10-21-2021 End: 10-22-[address] HONG SCHILLING Facility:[facility] Start: 07-13-2021 End: 07-14-2021 ambulatory YUMIKO BENITEZ Facility:[facility] Start: 05-18-2021 End: 05-18-2021 Patient encounter procedure MD Hong Schilling Work Phone: [facility] [address] Start: 04-18-2021 End: 04-19-[address] HONG SCHILLING Facility:[facility] Start: 03-28-2021 Registered Recurring MD Hong Schilling Work Phone: [facility] Start: 03-15-2021 End: 03-15-2021 Admission to same day surgery center MD Hong Schilling [facility] Start: 02-22-2021 End: 02-22-2021 Admission to same day surgery center MD Hong Schilling [facility] Start: 02-09-2021 End: 02-10-[address] GERMANIA HELTON Facility:[facility] Start: 01-24-2021 End: 01-25-[address] JHONNY SALAS Facility:[facility] Start: 11-20-2020 End: 11-20-[address] JUAN APODACA Facility:[facility] Start: 11-18-2020 End: 11-18-[address] JHONNY SALAS Facility:[facility] Start: 07-17-2017 End: 07-18-2017 Ambulatory DEFAULT PHYSICIAN Facility:[facility] Procedures Date Procedure Procedure Detail Performing Clinician Start: 07-21-2024 Hemoglobin glycosylated a1c Hong Schilling MD Work Phone: Start: 07-02-2024 NM ANTONELLA PERF SPECT REST STR Generic Exter nal Data Provider Start: 06-13-2024 AUDITORY FUNCTION TESTS Yanni Jimbo Muller [facility] Work Phone: Start: 05-15-2024 CA ECHO DOPPLER [...] 02-22-2021 Mammography of right breast MD Hong choi Work Phone: Start: 02-22-2021 Ultrasonography guided needle localization of lesion of right breast MD Hong Schilling Work Phone: History of coronary artery bypass grafting Hx of CABG MD Hong Schilling Work Phone: Plan of Treatment Date Care Activity Detail Author Start: 12-13-2032 Screening for malignant neoplasm of colon [facility] Start: 07-21-2025 Medicare Annual Wellness (AWV) Medicare Annual Wellness (AWV) [facility] Start: 04-01-2025 End: 04-01-2025 Patient encounter procedure 04/01/2025 11:00 AM EST Office Visit [facility] [address] [place] [address] [facility] Start: 03-10-2025 Glaucoma screening Diabetes: Retinopathy Screening [facility] Start: 01-28-2025 End: 01-28-2025 Patient encounter procedure 01/28/2025 2:15 PM EST Procedure Visit [facility] [address] [facility] [place] [phone] Ariel Lopez, DPM [address] [place] [address] [facility] Start: 01-05-2025 End: 01-05-2025 Patient encounter procedure [facility] Start: 12-16-2024 End: 12-16-2024 Patient encounter procedure 12/16/2024 4:15 PM EST Office Visit [facility] [address] [place] [address] BeAlfredo pace MD [address] [place] [address] [facility] Start: 10-22-2024 End: 10-22-2024 Patient encounter procedure [facility] Start: 10-21-2024 Hemoglobin A1c measurement Diabetes: Hemoglobin A1C [facility] Start: 10-13-2024 Influenza vaccination [facility] Start: 10-06-2024 End: 10-06-2024 Patient encounter procedure 10/06/2024 3:00 PM EDT [facility] [place] [facility] [address] [facility] [address] [place] [address] Hong Schilling MD [address] [facility] [address] [place] [address] [facility]: Arrived Start: 10-01-2024 End: 10-01-2024 Patient encounter procedure [facility] Start: 09-17-2024 End: 09-17-2024 Patient encounter procedure 09/17/2024 10:00 AM EDT Office Visit [facility] [address] [facility] [address] [place] [address] [facility] Start: 08-29-2024 End: 08-29-2024 Patient encounter procedure 08/29/2024 10:00 AM EDT Office Visit [facility] [address] [place] [phone] Ariel Lopez, DPM [address] [place] [address] [facility] Start: 08-18-2024 End: 08-18-2024 Clinical Support 08/18/2024 10:15 AM EDT Clinical Support [facility] [address] [facility] [address] [place] [address] Yanni Muller, [facility] [address] [facility] [place] [address] [facility] Start: 07-22-2024 Urine screening for protein Diabetes: Urine Protein Screening [facility] Start: 07-21-2024 End: 07-21-2025 CBC W Auto Differential panel - Blood CBC and differential Lab Routine Medicare annual wellness visit, subsequent Acquired hypothyroidism (CMS/HCC) Type 2 diabetes mellitus with peripheral vascular disease (CMS/HCC) Hypercholesterolemia (CMS/HCC) Hyperlipidemia, unspecified hyperlipidemia type (CMS/HCC) Expected: 07/21/2024 (Approximate), Expires: 07/21/2025 [facility] Work Phone: Comment on above: Expected: 07/21/2024 (Approximate), Expi res: 07/21/2025 Start: 07-21-2024 End: 07-21-2025 Comprehensive metabolic 2000 panel - Serum or Plasma Comprehensive metabolic panel Lab Routine Medicare annual wellness visit, subsequent Acquired hypothyroidism (CMS/HCC) Type 2 diabetes mellitus with peripheral vascular disease (CMS/HCC) Hypercholesterolemia (CMS/HCC) Hyperlipidemia, unspecified hyperlipidemia type (CMS/HCC) Expected: 07/21/2024 (Approximate), Expires: 07/21/2025 [facility] Comment on above: Expected: 07/21/2024 (Approximate), Expi res: 07/21/2025 Start: 07-21-2024 End: 07-21-2025 Lipid 1996 panel - Serum or Plasma Lipid panel Lab Routine Medicare annual wellness visit, subsequent Hypercholesterolemia (CMS/HCC) Hyperlipidemia, unspecified hyperlipidemia type (CMS/HCC) Expected: 07/21/2024 (Approximate), Expires: 07/21/2025 [facility] Comment on above: Expected: 07/21/2024 (Approximate), Expi res: 07/21/2025 Start: 07-21-2024 End: 07-21-2025 Microalbumin/Creatinin e panel in random Urine Microalbumin / creatinine urine ratio Lab Routine Medicare annual wellness visit, subsequent Type 2 diabetes mellitus with peripheral vascular disease (CMS/HCC) Expected: 07/21/2024 (Approximate), Expires: 07/21/2025 [facility] Comment on above: Expected: 07/21/2024 (Approximate), Expi res: 07/21/2025 Start: 07-21-2024 End: 07-21-2025 TSH W/REFLEX TO FT4 TSH W/REFLEX TO FT4 Lab Routine Medicare annual wellness visit, subsequent Acquired hypothyroidism ([facility]/HCC) Expected: 07/21/2024 (Approximate), Expires: 07/21/2025 [facility] Comment on above: Expected: 07/21/2024 (Approximate), Expi res: 07/21/2025 Start: 07-21-2024 End: 07-21-2024 Patient encounter procedure [facility] Comment on above: Arrived Start: 07-16-2024 Medicare Annual Wellness (AWV) Medicare Annual Wellness (AWV) [facility] Start: 07-16-2024 End: 07-16-2024 Patient encounter procedure 07/16/2024 1:30 PM EDT Procedure Visit [facility] [address] [place] [phone] Ariel Lopez DPM [address] [place] [address] [facility] Start: 07-03-2024 End: 07-03-2024 Patient encounter procedure 07/03/2024 10:30 AM EDT Office Visit [facility] [address] [facility] [address] [place] [phone] Bill Trammell, DO [address] [facility] [address] [place] [address] [facility] Start: 06-17-2024 End: 06-17-2024 Patient encounter procedure [facility] Comment on above: Hearing loss associated with syndrome of both ears Start: 06-13-2024 End: 06-13-2024 Clinical Support [facility] Comment on above: Arrived Start: 04-14-2024 End: 04-14-2024 Patient encounter procedure 04/14/2024 1:30 PM EST [facility] [address] [place] [phone] Ariel Lopez, DPM [address] [place] [address] [facility] Start: 03-05-2024 Glaucoma screening Diabetes: Retinopathy Screening [facility] Start: 01-09-2024 End: 01-09-2024 Patient encounter procedure 01/09/2024 2:15 PM EST Office Visit [facility] [address] [place] [phone] Ariel Lopez DPWilmar [address] [place] [address] [facility] Start: 01-03-2024 End: 01-03-2024 Patient encounter procedure 01/03/2024 11:15 AM EST Office Visit [facility] [address] [phone] Bill Trammell DO [address] [facility] [address] [place] [address] [facility] [address] [facility] Start: 10-17-2023 Hemoglobin A1c measurement Diabetes: Hemoglobin A1C [facility] Start: 10-14-2023 Influenza vaccination Influenza Vaccine (#1) [facility] Start: 02-21-2018 Pneumococcal Vaccine: 65+ Years (2 of 2 - PPSV23 or PCV20) Pneumococcal Vaccine: 65+ Years (2 of 2 - PPSV23 or PCV20) [facility] Start: 02-21-2018 Pneumococcal Vaccine: 65+ Years (2 of 2 - PPSV23) Pneumococcal Vaccine: 65+ Years (2 of 2 - PPSV23) [facility] Start: 1950 Screening for malignant neoplasm of colon [facility] Patient referral [facility] Work Phone: Immunizations Immunization Date Immunization Notes Care Provider Chan mcdonald 08-20-2018 zoster vaccine, live Ariel Lopez DPM Work Phone: [facility] 12-27-2017 pneumococcal conjuga te vaccine, 13 valent Ariel Lopez DPM Work Phone: [facility] 08-30-2017 tetanus toxoid, redu leora diphtheria toxoid, and acellular pertussis vaccine, adsorbed Ariel Lopez DPM Work Phone: [facility] 01-04-2009 tetanus and diphther ia toxoids, adsorbed, preservative free, for adult use (5 Lf of tetanus toxoid and 2 Lf of diphtheria toxoid) Ariel Lopez DPM Work Phone: [facility] Payers Date Payer Category Payer Self-pay [id number] 2014 Medicare MEDICARE [id number] 2014 Private Health Insurance [facility] [id number] 1959 Medicare [id number] 1959 Unknown [id number] 1949 Unknown [id number] 2.16.840.1.785478.3.579.2 .593 1949 Unknown [id number] 2.16.840.1.559101.3.579.2 .593 1949 Unknown [id number] 2.16.840.1.207061.3.579.2 .593 1949 Unknown [id number] 2.16.840.1.917094.3.579.2 .593 1949 Unknown [id number] 2.16.840.1.131256.3.579.2 .593 1949 Unknown [id number] 2.16.840.1.668103.3.579.2 .593 1949 Unknown [id number] 2.16.840.1.012094.3.579.2 .593 1949 Unknown [id number] 2.16.840.1.076544.3.579.2 .593 1949 Unknown [id number] 2.16.840.1.106224.3.579.2 .1259 1949 Unknown [id number] 2.16.840.1.127867.3.579.2 .1259 1949 Unknown [id number] 2.16.840.1.999509.3.579.2 .1259 1949 Unknown [id number] 2.16.840.1.454398.3.579.2 .1259 1949 Unknown [id number] 2.16.840.1.144743.3.579.2 .1259 1949 Unknown [id number] 2.16.840.1.846929.3.579.2 .1259 1949 Unknown [id number] 2.16.840.1.713334.3.579.2 .1259 1949 Unknown [id number] 2.16.840.1.419456.3.579.2 .1259 1949 Unknown [id number] 2.16.840.1.624408.3.579.2 .1259 1949 Unknown [id number] 2.16.840.1.258837.3.579.2 .1259 1949 Unknown [id number] 2.16.840.1.367570.3.579.2 .1259 1949 Unknown [id number] 2.16.840.1.748052.3.579.2 .1259 1949 Unknown [id number] 2.16.840.1.021615.3.579.2 .1259 1949 Unknown [id number] 2.16.840.1.405447.3.579.2 .1258 1949 Unknown [id number] 2.16.840.1.306375.3.579.2 .1259 1949 Unknown [id number] 2.16.840.1.063984.3.579.2 .1258 1949 Unknown [id number] 2.16.840.1.760353.3.579.2 .1259 Private Health Insurance [id number] Unknown Unknown [id number] 2.16.840.1.836181.3.579.2 .531 Social History Date Type Detail Facility Start: 03-15-2021 Tobacco smoking stat [facility] Ex-smoker (finding) [facility] Start: 1950 Sex Assigned At Female F [facility] Start: 07-25-2022 Tobacco smoking stat [facility] Never smoked tobacco [facility] Start: 07-25-2022 Tobacco use and exposure Smokeless tobacco non-user [facility] Start: 09-03-2023 End: 10-22-2024 Alcoholic beverage intake Lifetime non-drinker (finding) [facility] Start: 09-03-2023 End: 10-06-2024 History of Social function [facility] Start: 09-03-2023 End: 10-06-2024 Tobacco use panel [facility] Start: 12-28-2022 Alcohol Comment Caffeine Intak e: 1-2 cups per day coffee, soda/pop [facility] Start: 1950 Sex assigned at Not on file N [facility] Medical Equipment Procedure Code Equipment Code Equipment Origin al Text Equipment Identifier Dates Biopsy, breast, with lumpectomy Imaging lesion localization marker, implantable ([id number] FDA Start: 02-22-2021 Goals Date Patient Goal Desired Activity /State Functional Status Date Assessment Result Facility 10-06-2024 Patient Health Quest ionnaire 2 item (PHQ-2) [Reported] [facility] 09-23-2024 Patient Health Quest ionnaire 2 item (PHQ-2) [Reported] [facility] 07-21-2024 Patient Health Quest ionnaire 2 item (PHQ-2) [Reported] [facility] Clinical Notes 11-18-2020 to 10-22-2024 JULI Palencia - 10/22/2024 1:15 PM Gasper Schilling MD - 10/06/2024 3:16 PM Gasper Schilling MD - 10/06/2024 3:15 PM Gasper Schilling MD - 10/06/2024 3:00 PM EDT Note Date & Type Note Facility 10-22-2024 History of Present illness Narrative Images from the original note were not included. Subjective Patient ID: Rosalie Horne is a 74 y.o. female who presents for DM Foot Care (Pt is here today with her spouse for diaebtic foot care/BS: 79 A1C: 5.6/Lv Dr. Schilling 10-06-2024). 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 CAD (coronary artery disease) 2013 Cerebrovascular accident ([facility]) 2006 CHF (congestive heart failure) ([facility]) Chronic ischemic heart disease COVID 11/17/2020 Positive, unvaccinated Diabetes mellitus ([facility]) 2012 Type 2 without complication Diverticulosis Dizziness Inner ear infection Edema GERD (gastroesophageal reflux disease) 2013 Heart disease Heat exhaustion UTI Hemoptysis 2014 History of being hospitalized 2006 Blood transfusion History of being hospitalized 11/20/2020 ER COVID pneumonia [facility] History of medical problems Sphincter History of tonsillitis Hypertension Hypothyroidism (acquired) Measles Mumps Myocardial infarction ([facility]) 12/03/2006 Osteoporosis Pneumonia 2013 Sebaceous cyst 2011 Thyroid disease Medications Current [...] Left 2008 CATARACT EXTRACTION Right 2018 COLONOSCOPY 2012 CORONARY ARTERY BYPASS GRAFT 2006 DERMOID CYST EXCISION EXCISION / BIOPSY BREAST [...] with neurological manifestations, not stated as uncontrolled(250.60) ([facility]) E11.49 Patient examined and evaluated. 10 toenails were debrided in length and thickness today utilizing a nail nipper and electric bur floor grinder without incident. I have discussed the [...] Ariel Lopez DPM documented in this encounter [facility] 10-06-2024 History of Present illness Narrative Associated Problem(s): Infection of index finger Sloughing of skin previously Still with swelling Would refer to Ortho if Bactrim doesn't get rid of swelling Add Probiotic to help replenish the good bacteria that are destroyed by the Antibiotics Florastor Florajen Align or try Activia in Yogurt Probiotics reduce the risk of antibiotic induced diarrhea Associated Problem(s): Swelling of index finger Still with swelling Finished atibiotics Images from the original note were not included. Attached media from the original note were not included. Subjective Patient ID: Rosalie Horne is a 74 y.o. female who presents for finger recheck. Pt is here for follow up on her index finger she was given an abx for this It is still swollen , this morning she could not bend her finger at all Over the past 2 weeks, how often have you been bothered by any of the following problems? Little interest or pleasure in doing things: Not at all Feeling down, depressed, or hopeless: Not at all Patient Health Questionnaire-2 Score: 0 Current Outpatient Medications on File Prior to Visit Medication Sig Dispense Refill ammonium lactate (Amlactin) 12 % cream Apply topically Daily 140 g 3 ASPIRIN 81 PO Take by mouth carvedilol (Coreg) 3.125 MG tablet TAKE 1 TABLET IN THE MORNING AND TAKE 1 TABLET BEFORE BEDTIME 180 tablet 3 cinnamon 500 MG capsule Take 500 mg by mouth Daily famotidine (Pepcid) 20 MG tablet TAKE 1 TABLET AT BEDTIME 100 tablet 3 ferrous sulfate 325 (65 Fe) MG tablet Take 1 tablet (325 mg) by mouth every 8 (eight) hours 270 tablet 3 fexofenadine-pseudoephedrine ER (Ritika-D) 60-120 MG 12 hr tablet Take 1 tablet by mouth in the morning and 1 tablet in the evening. fluticasone (Flonase) 50 MCG/ACT nasal spray Administer 1-2 sprays into each nostril Daily Shake gently. Before first use, prime pump. After use, clean tip and replace cap. 16 g 2 Jardiance 10 MG TAKE 1 TABLET EVERY DAY 90 tablet 3 levothyroxine (Synthroid, Levoxyl) 88 MCG tablet TAKE 1 TABLET EVERY MORNING 90 tablet 3 magnesium 250 MG tablet every 12 (twelve) hours Multiple Vitamins-Minerals (Thera-M) tablet Take 1 tablet by mouth in the morning. omeprazole (PriLOSEC) [address] capsule TAKE 1 CAPSULE EVERY DAY (NEED APPOINTMENT) 100 capsule 3 oxybutynin XL (Ditropan-XL) 15 MG 24 hr tablet TAKE 1 TABLET EVERY MORNING 90 tablet 3 pravastatin (Pravachol) 40 MG tablet TAKE 1 TABLET EVERY DAY 90 tablet 3 sacubitril-valsartan (Entresto) 49-51 MG tablet every 12 (twelve) hours [DISCONTINUED] cephalexin (Keflex) 500 MG capsule Take 1 capsule (500 mg) by mouth in the morning and 1 capsule (500 mg) in the evening and 1 capsule (500 mg) before bedtime. Do all this for 10 days. 30 capsule 0 No current facility-administered medications on file prior to visit. I have reviewed and reconciled the history and medication list with the patient today. No Known Allergies Social History Tobacco Use Smoking status: Never Smokeless tobacco: Never Vaping Use Vaping status: Never Used Substance Use Topics Alcohol use: Never Comment: Caffeine Intake: 1-2 cups per day coffee, soda/pop Drug use: Never Family History Problem Relation Name Age of Onset Hypertension Father My dad ? 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 CAD (coronary artery disease) 2013 Cerebrovascular accident ([facility]) 2006 CHF (congestive heart failure) ([facility]) Chronic ischemic heart disease COVID 11/17/2020 Positive, unvaccinated Diabetes mellitus ([facility]) 2012 Type 2 without complication Diverticulosis Dizziness Inner ear infection Edema GERD (gastroesophageal reflux disease) 2014 Heart disease Heat exhaustion UTI Hemoptysis 2014 History of being hospitalized 2006 Blood transfusion History of being hospitalized 11/20/2020 ER COVID pneumonia [facility] History of medical problems Sphincter History of tonsillitis Hypertension Hypothyroidism (acquired) Measles Mumps Myocardial infarction ([facility]) 12/03/2006 Osteoporosis Pneumonia 2014 Sebaceous cyst 2011 Thyroid disease Past Surgical History: Procedure Laterality Date ANAL [...] BIOPSY Right 11/09/2020 WISDOM TOOTH EXTRACTION 04/25/2021 Visit Vitals BP 130/68 Pulse 56 Ht 5' 4 Wt 170 lb SpO2 96% BMI 29.18 kg/m Smoking Status Never BSA 1.87 m Review of Systems Constitutional: Negative for chills and fever. Musculoskeletal: Positive for joint swelling. 2 weeks ago red hot swollen, but improved Objective Physical Exam Constitutional: Appearance: Normal appearance. Musculoskeletal: Right hand: Swelling present. Arms: Comments: A little swollen minimal warmth Skin: Findings: Erythema present. Comments: No warmth Neurological: Mental Status: She is alert. Assessment/Plan Problem List Items Addressed This Visit Infection of index finger - Primary Sloughing of skin previously Still with swelling Would refer to Ortho if Bactrim doesn't get rid of swelling Add Probiotic to help replenish the good bacteria that are destroyed by the Antibiotics Florastor Florajen Align or try Activia in Yogurt Probiotics reduce the risk of antibiotic induced diarrhea Relevant Medications sulfamethoxazole-trimethoprim (Bactrim DS) 800-160 MG per tablet Swelling of index finger Still with swelling Finished atibiotics Relevant Medications sulfamethoxazole-trimethoprim (Bactrim DS) 800-160 MG per tablet No follow-ups on file. documented in this encounter [facility] 10-01-2024 History of Present illness Narrative Patient was in for a follow up on a BICROS which she was fit with several weeks ago. Patient is doing ok but is still not completely understanding the CROS. We reviewed that unit is a transmitter and she will not experience hearing in the right ear. There is no amplification in that ear. Patient will call for future follow ups. Cosigned by LORETTA Alanis at 10/10/2024 10:02 AM EDT documented in this encounter [facility] 09-23-2024 History of Present illness Narrative Associated Problem(s): Chronic kidney disease, stage 3a ([facility]) Avoid NSAIDs such as Ibuprofen, Motrin, Naprosyn. Increase fluids. Associated Problem(s): Infection of index finger Add Probiotic to help replenish the good bacteria that are destroyed by the Antibiotics Florastor Florajen Align or try Activia in Yogurt Probiotics reduce the risk of antibiotic induced diarrhea Images from the original note were not included. Attached media from the original note were not included. Subjective Patient ID: Rosalie Horne is a 74 y.o. female who presents for No chief complaint on file.. Rosalie presents today for right pointer finger pain. She says the whole right had was swollen but that has gotten better. The one finger will get broken skin and be very painful. Thsi has been going on for the 2-3 weeks. She states she has had no injury to the hand. She has not tried any thing OTC for it. Over the past 2 weeks, how often have you been bothered by any of the following problems? Little interest or pleasure in doing things: Not at all Feeling down, depressed, or hopeless: Not at all Patient Health Questionnaire-2 Score: 0 Current Outpatient Medications on File Prior to Visit Medication Sig Dispense Refill ammonium lactate (Amlactin) 12 % cream Apply topically Daily 140 g 3 ASPIRIN 81 PO Take by mouth carvedilol (Coreg) 3.125 MG tablet TAKE 1 TABLET IN THE MORNING AND TAKE 1 TABLET BEFORE BEDTIME 180 tablet 3 cinnamon 500 MG capsule Take 500 mg by mouth Daily famotidine (Pepcid) 20 MG tablet TAKE 1 TABLET AT BEDTIME 100 tablet 3 ferrous sulfate 325 (65 Fe) MG tablet Take 1 tablet (325 mg) by mouth every 8 (eight) hours 270 tablet 3 fexofenadine-pseudoephedrine ER (Ritika-D) 60-120 MG 12 hr tablet Take 1 tablet by mouth in the morning and 1 tablet in the evening. fluticasone (Flonase) 50 MCG/ACT nasal spray Administer 1-2 sprays into each nostril Daily Shake gently. Before first use, prime pump. After use, clean tip and replace cap. 16 g 2 Jardiance 10 MG TAKE 1 TABLET EVERY DAY 90 tablet 3 levothyroxine (Synthroid, Levoxyl) 88 MCG tablet TAKE 1 TABLET EVERY MORNING 90 tablet 3 magnesium 250 MG tablet every 12 (twelve) hours Multiple Vitamins-Minerals (Thera-M) tablet Take 1 tablet by mouth in the morning. omeprazole (PriLOSEC) [address] capsule TAKE 1 CAPSULE EVERY DAY (NEED APPOINTMENT) 100 capsule 3 oxybutynin XL (Ditropan-XL) 15 MG 24 hr tablet TAKE 1 TABLET EVERY MORNING 90 tablet 3 pravastatin (Pravachol) 40 MG tablet TAKE 1 TABLET EVERY DAY 90 tablet 3 sacubitril-valsartan (Entresto) 49-51 MG tablet every 12 (twelve) hours No current facility-administered medications on file prior to visit. I have reviewed and reconciled the history and medication list with the patient today. No Known Allergies Social History Tobacco Use Smoking status: Never Smokeless tobacco: Never Vaping Use Vaping status: Never Used Substance Use Topics Alcohol use: Never Comment: Caffeine Intake: 1-2 cups per day coffee, soda/pop Drug use: Never Family History Problem Relation Name Age of Onset Hypertension Father My dad ? 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 CAD (coronary artery disease) 2013 Cerebrovascular accident ([facility]) 2006 CHF (congestive heart failure) ([facility]) Chronic ischemic heart disease COVID 11/17/2020 Positive, unvaccinated Diabetes mellitus ([facility]) 2013 Type 2 without complication [...] Pneumonia 2014 Sebaceous cyst 2011 Thyroid disease Past Surgical History: Procedure Laterality Date ANAL [...] BIOPSY Right 11/09/2020 WISDOM TOOTH EXTRACTION 04/25/2021 Visit Vitals BP 128/60 Pulse 62 Resp 16 Ht 5' 4 Wt 171 lb SpO2 96% BMI 29.35 kg/m Smoking Status Never BSA 1.87 m Review of Systems Constitutional: Negative for chills and fever. Musculoskeletal: Positive for joint swelling. 2 weeks ago red hot swollen, but improved Objective Physical Exam Constitutional: Appearance: Normal appearance. Musculoskeletal: Right hand: Swelling present. Arms: Comments: A little swollen minimal warmth Neurological: Mental Status: She is alert. Assessment/Plan Problem List Items Addressed This Visit Chronic kidney disease, stage 3a ([facility]-HCC) Avoid NSAIDs such as Ibuprofen, Motrin, Naprosyn. Increase fluids. Infection of index finger - Primary Add Probiotic to help replenish the good bacteria that are destroyed by the Antibiotics Florastor Florajen Align or try Activia in Yogurt Probiotics reduce the risk of antibiotic induced diarrhea Relevant Medications cephalexin (Keflex) 500 MG capsule No follow-ups on file. documented in this encounter [facility] 09-17-2024 History of Present illness Narrative Patient was in today to be fit with a left hearing aid coupled to a right CROS. Patient has tried hearing aids in the past but is new to a CROS and has not worn aids for any longer than a trial period. Patient was shown the diesel pile driver operator and was able to use it. Patient was shown maintenance and she was able to change the dome and filter. Patient was initially confused by the CROS but understood after counseling. Patient was able to insert and remove the hearing aids with little difficulty. The CROS was coupled to a 2R standard engineering coordinator with an extra small vented dome. The hearing aid was coupled to a 2M engineering coordinator with an extra small vented dome. Patient indicated the aids were comfortable. Patient aids were not paired to a smart phone. She is scheduled for a follow up in two weeks. Patient paid $4300 for hearing aid ($2600) and CROS ($1700). Cosigned by LORETTA Alanis at 09/17/2024 1:59 PM EDT documented in this encounter [facility] 08-25-2024 Telephone encounter Note Pt's called to let us know pt is keeping her DM shoes and likes them. Shoe check appt has been cancelled. [facility] 08-25-2024 Miscellaneous Notes Pt's called to let us know pt is keeping her DM shoes and likes them. Shoe check appt has been cancelled. documented in this encounter [facility] 08-18-2024 History of Present illness Narrative Hearing Aid Discussion: Pt here for hearing aid discussion and is accompanied by her . Pt tried custom hearing aids about 5 years ago but was not successful. The left aid was not comfortable despite remakes. Pt's right word discrimination is now 0% so she is no longer a candidate for a traditional hearing aid for her right ear. Recommend FAISAL GUTHIRE. Discussed standard, advanced, and premium technology. Pt's would like pt to try advanced circuit. He wears hearing aids and knows about the problems background noise can create. Will order aids. Scheduled pt for HAF and 2 week follow up. Pt will owe $4300 at the fitting appointment. documented in this encounter [facility] 08-08-2024 History of Present illness Narrative Images from the original note were not included. Subjective Patient ID: Rosalie Horne is a 74 y.o. 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 [address] Skinner, 3 HM inserts. A1c 5.8 SS8W). HPI Established patient returns to clinic for diabetic shoe measure. 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 CAD (coronary artery disease) 2013 Cerebrovascular accident ([facility]) 2006 CHF (congestive heart failure) ([facility]) Chronic ischemic heart disease COVID 11/17/2020 Positive, unvaccinated Diabetes mellitus ([facility]) 2012 Type 2 without complication [...] , Rfl: carvedilol (Coreg) 3.125 MG tablet, Take 1 tablet (3.125 mg) by mouth in the morning and 1 tablet (3.125 mg) before bedtime., Disp: 180 tablet, Rfl: 0 cinnamon 500 MG capsule, Take 500 mg [...] mcg) by mouth in the morning., Disp: 90 tablet, Rfl: 0 magnesium 250 MG tablet, every 12 (twelve) hours, Disp: , Rfl: Multiple Vitamins-Minerals (Thera-M) tablet, Take 1 tablet by mouth in the morning., Disp: , Rfl: omeprazole (PriLOSEC) [address] capsule, TAKE 1 CAPSULE EVERY DAY (NEED APPOINTMENT), Disp: 100 capsule, Rfl: 3 oxybutynin XL (Ditropan-XL) 15 MG 24 hr tablet, Take 1 tablet (15 mg) by mouth in the morning., Disp: 90 tablet, Rfl: 0 pravastatin (Pravachol) 40 MG tablet, Take 1 tablet (40 mg) by mouth Daily, Disp: 90 tablet, Rfl: 0 sacubitril-valsartan (Entresto) 49-51 MG tablet, every 12 [...] Comments: Three toenails exhibit clinical mycosis with yellow/brown discoloration, crumbly texture, subungual debris. Currently manicured for length, thickness. Hyperkeratotic tissue: Left foot: None Right foot: [...] with neurological manifestations, not stated as uncontrolled(250.60) ([facility]) E11.49 2. Hammer toe of left foot M20.42 3. Corns and callosities L84 4. Contracture of toe of left foot M20.5X2 5. Peripheral vascular disease I73.9 Patient presents for the dispensing of 1 pair of extra depth diabetic shoes and 3 pairs of heat molded orthotics. The shoes were applied and fit well. Each pair of inserts were heated to 270 degrees and molded to the patient's feet. Patient was able to stand and weight bear for the molding. The inserts achieve total contact with the plantar surface of the patient's feet. The insoles are comfortable and appropriate for her foot type. Instructions were given in the rotation and changing of the insoles. Heat molded inserts are required to achieve and maintain total contact with the plantar aspect of the patient's foot for the life of the device and to prevent tissue damage. Three pairs of inserts are utilized for her due to bottoming out and loss of protection after 4 months of wear. They were dated to assist her in this process. Patient is able to apply the shoes independently. Walking in the shoes is comfortable and nonirritating. Patient was instructed in the break in period and return policy for the shoes and insoles. The PCS is on file and instructions given to call the office if questions or problems arise. The supplier standards regarding the DME given to patient. At the time of dispensing the shoes and insoles are suitable and not substandard. RTO 3 weeks to check shoes. A copy of patient records were reviewed and initialed by the PCP prior to the signing of the certifying statement. She was advised to wear the shoes at home for only one hour on the first day and to check her feet for any sores or irritations. This note was created with the assistance of a speech recognition program. While intending to generate a timely document that accurately reflects the content of the visit, no guarantee can be provided that every grammatical or spelling mistake has been or will be identified or corrected. Thank you for your understanding. Ariel Lopez DPM documented in this encounter [facility] 07-22-2024 History of Present illness Narrative Images from the original note were not included. Subjective Patient ID: Rosalie Horne is a 74 y.o. female who presents for No chief complaint on file.. HPI Established patient returns to clinic for diabetic shoe measure. 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 CAD (coronary artery disease) ([facility]) 2013 Cerebrovascular accident ([facility]) 2006 CHF (congestive heart failure) ([facility]) Chronic ischemic heart disease COVID 11/17/2020 Positive, unvaccinated Diabetes mellitus ([facility]) 2012 Type 2 without complication Diverticulosis Dizziness Inner ear infection Edema GERD (gastroesophageal reflux disease) 2014 Heart disease Heat exhaustion UTI Hemoptysis 2014 History of being hospitalized 2006 Blood transfusion History of being hospitalized 11/20/2020 ER COVID pneumonia [facility] History of medical problems Sphincter History of tonsillitis Hypertension ([facility]) Hypothyroidism (acquired) ([facility]) Measles Mumps Myocardial infarction ([facility]) 12/03/2006 Osteoporosis ([facility]) Pneumonia 2014 Sebaceous cyst 2011 Thyroid disease ([facility]) Medications Current Outpatient Medications: ammonium lactate (Amlactin) 12 % cream, Apply topically Daily, Disp: 140 g, Rfl: 3 ASPIRIN 81 PO, Take by mouth, Disp: , Rfl: carvedilol (Coreg) 3.125 MG tablet, Take 1 tablet (3.125 mg) by mouth in the morning and 1 tablet (3.125 mg) before bedtime., Disp: 180 tablet, Rfl: 0 cinnamon 500 MG capsule, Take 500 mg by mouth Daily, Disp: , Rfl: famotidine (Pepcid) 20 MG tablet, TAKE 1 TABLET AT BEDTIME, Disp: 30 tablet, Rfl: 0 ferrous sulfate 325 (65 Fe) MG tablet, [...] mcg) by mouth in the morning., Disp: 90 tablet, Rfl: 0 magnesium 250 MG tablet, every 12 (twelve) hours, Disp: , Rfl: Multiple Vitamins-Minerals (Thera-M) tablet, Take 1 tablet by mouth in the morning., Disp: , Rfl: omeprazole (PriLOSEC) [address] capsule, TAKE 1 CAPSULE EVERY DAY, Disp: 30 capsule, Rfl: 0 oxybutynin XL (Ditropan-XL) 15 MG 24 hr tablet, Take 1 tablet (15 mg) by mouth in the morning., Disp: 90 tablet, Rfl: 0 pravastatin (Pravachol) 40 MG tablet, Take 1 tablet (40 mg) by mouth Daily, Disp: 90 tablet, Rfl: 0 sacubitril-valsartan (Entresto) 49-51 MG tablet, every 12 [...] Comments: Three toenails exhibit clinical mycosis with yellow/brown discoloration, crumbly texture, subungual debris. Currently manicured for length, thickness. Hyperkeratotic tissue: Left foot: None Right foot: [...] Hammer toe of left foot M20.42 3. Corns and callosities L84 4. Contracture of toe of left foot M20.5X2 5. Peripheral vascular disease (CMS/HCC) I73.9 Patient was measured for diabetic shoes. [employer] device was utilized and patient stood in a weightbearing position for accurate measurement. Measurements were recorded appropriately. Patient selected desired shoe style in color which was marked down on the appropriate paperwork. Diabetic shoes are required due to history of neuropathy, pre-ulcerative lesions as well as pedal deformities. The shoes are designed to reduce shear pressure across the foot and prevent pedal ulceration. Follow-up for shoe fitting and dispensing. This note was created with the assistance of a speech recognition program. While intending to generate a timely document that accurately reflects the content of the visit, no guarantee can be provided that every grammatical or spelling mistake has been or will be identified or corrected. Thank you for your understanding. Ariel Lopez DPM documented in this encounter [facility] 07-21-2024 History of Present illness Narrative Associated Problem(s): Hypercholesterolemia (CMS/HCC) This is a chronic medical condition that is stable since last assessment. No changes in treatment are suggested at this time. Continue Current meds. Associated Problem(s): Hyperlipidemia (CMS/HCC) This is a chronic medical condition that is stable since last assessment. No changes in treatment are suggested at this time. Continue Current meds. Associated Problem(s): Malignant neoplasm of submandibular gland (CMS/HCC) F/up with ENT as needed Associated Problem(s): Medicare annual wellness visit, subsequent Colonoscopy every 10 years or Cologuard every [...] Ultrasound of Aorta to screen for Anuerysm Associated Problem(s): Acquired hypothyroidism (CMS/HCC) Check labs Associated Problem(s): Type 2 diabetes mellitus with diabetic chronic kidney disease (CMS/HCC) No Tobacco use Follow ADA 1800 diet [...] healthy diet and exercise. A1c is 5.6 Associated Problem(s): Non-pressure chronic ulcer of other part of left foot with fat layer exposed Recommend Diabetic shoes Associated Problem(s): Type 2 diabetes mellitus with foot ulcer (CODE) Sees Podiatry Recommend Diabetic shoes Paperwork completed and agree with podiatry assessment Associated Problem(s): Chronic kidney disease, stage 3a (HCC) (CMS/HCC) Avoid NSAIDs such as Ibuprofen, Motrin, Naprosyn. Increase fluids. Associated Problem(s): Chronic diastolic (congestive) heart failure Stable Associated Problem(s): Chronic systolic (congestive) heart failure Continue current meds Associated Problem(s): Hypertensive heart disease with heart failure (CMS/HCC) BP is controlled Associated Problem(s): Other cardiomyopathies Stable continue current medicines Associated Problem(s): Pulmonary hypertension, unspecified (CMS/HCC) Found on Echo Pulmonary pressures are 42 mmHg Associated Problem(s): Type 2 diabetes mellitus with peripheral vascular disease (CMS/HCC) S/P CVA, continue current meds F/Up with specialists Associated Problem(s): Unspecified systolic (congestive) heart failure (CMS/HCC) Stable for now no acute exacerbations Associated Problem(s): Vascular dementia, unspecified severity, without behavioral disturbance, psychotic disturbance, mood disturbance, and anxiety (CMS/HCC) Stable overall, continue mental exercises such as word searches, Sodoku and Crosswords Images from the original note were not included. Subjective : Chief Complaint: Isabella Horne is an 74 y.o. female here for an annual wellness visit. Needs POA Medical and Financial needed I have reviewed and reconciled the history and medication list with the patient today. Current Outpatient Medications Medication Sig Dispense Refill ammonium lactate (Amlactin) [...] MG tablet TAKE 1 TABLET AT BEDTIME 30 tablet 0 ferrous sulfate 325 (65 Fe) MG tablet Take 1 tablet (325 mg) by mouth every 8 (eight) hours 270 tablet 3 fexofenadine-pseudoephedrine ER (Ritika-D) 60-120 MG 12 hr tablet Take 1 tablet by mouth in the morning and 1 tablet in the evening. fluticasone (Flonase) 50 MCG/ACT nasal spray Administer 1-2 sprays into each nostril Daily Shake gently. Before first use, prime pump. After use, clean tip and replace cap. 16 g 2 Jardiance 10 MG TAKE 1 TABLET EVERY DAY 90 tablet 3 levothyroxine (Synthroid, Levoxyl) 88 MCG tablet Take 1 tablet (88 mcg) by mouth in the morning. 90 tablet 0 magnesium 250 MG tablet every 12 (twelve) hours Multiple Vitamins-Minerals (Thera-M) tablet Take 1 tablet by mouth in the morning. omeprazole (PriLOSEC) [address] capsule TAKE 1 CAPSULE EVERY DAY 30 capsule 0 oxybutynin XL (Ditropan-XL) 15 MG 24 hr tablet Take 1 tablet (15 mg) by mouth in the morning. 90 tablet 0 pravastatin (Pravachol) 40 MG tablet Take 1 tablet (40 mg) by mouth Daily 90 tablet 0 sacubitril-valsartan (Entresto) 49-51 MG tablet every 12 (twelve) hours No current facility-administered medications for this visit. Review of Systems Constitutional: Negative for chills, fatigue, fever and unexpected weight change. Respiratory: Negative for cough. Cardiovascular: Negative for chest pain. Gastrointestinal: Negative for abdominal pain, blood in stool, constipation, diarrhea, nausea and vomiting. Genitourinary: Negative for dysuria, enuresis, frequency and hematuria. Musculoskeletal: Negative for back pain. Neurological: Negative for dizziness, tremors, syncope, facial asymmetry and speech difficulty. Psychiatric/Behavioral: Negative for agitation, behavioral problems, confusion and dysphoric mood. The patient is not nervous/anxious. List of current healthcare providers: Patient Care Team: Hong Schilling MD as PCP - General (Family Medicine) Hong Schilling MD as PCP - [facility] [employer] Annual Visit Over the past 2 weeks, how often have you been bothered by any of the following problems? Little interest or pleasure in doing things: Not at all Feeling down, depressed, or hopeless: Not at all Patient Health Questionnaire-2 Score: 0 Schilling Fall Risk History of Falling, Immediate or Within 3 Months: Yes Health Risk Assessment Form Do you need help eating, bathing, using the toilet, dressing, or getting around your home?: No Can you prepare your own meals?: Yes Can you do your own housework without help?: Yes Can you shop for groceries or clothes without help?: Yes Do you exercise for about 20 minutes 3 or more days a week?: Yes How confident are you that you can control and manage most of your health problems?: Very confident Can you mange your money, credit cards and accounts, pay bills and taxes?: Yes Vision Screening: Yes, no gross abnormalities Hearing Screening: Yes, no gross abnormalities Cognitive Screening Self Assessment: No overt cognitive deficiency is apparent by direct observation Three Word Registration: Captain, Garden, Picture Clock Drawing: Normal Clock - 2 Three Word Recall: All 3 words correct - 3 Total Score (0-5 Points): 5 Pain Assessment Pain Score: 0 - No pain Advance Care Planning Do you have a living will?: Yes Do you have a medical power of disability attorney?: No Objective : BP 122/78 Pulse 75 Ht 5' 4 Wt 163 lb SpO2 99% BMI 27.98 kg/m No results found. Physical Exam Constitutional: General: She is not in acute distress. Appearance: Normal appearance. HENT: Head: Normocephalic. Neck: Vascular: No carotid bruit. Cardiovascular: Rate and Rhythm: Normal rate and regular rhythm. Pulmonary: Effort: Pulmonary effort is normal. No respiratory distress. Breath sounds: Normal breath sounds. Neurological: General: No focal deficit present. Mental Status: She is alert and oriented to person, place, and time. Psychiatric: Mood and Affect: Mood normal. Assessment/Plan : The following health maintenance schedule was reviewed with the patient and provided in printed form in the after visit summary: Health Maintenance Topic Date Due Pneumococcal Vaccine: 65+ Years (2 of 2 - PPSV23) 02/21/2018 Medicare Annual Wellness (AWV) 07/16/2024 Influenza Vaccine (Season Ended) 2024 Diabetes: Urine Protein Screening 07/22/2024 Diabetes: Hemoglobin A1C 10/21/2024 Diabetes: Retinopathy Screening 03/10/2025 Colorectal Cancer Screening 12/13/2032 Mammogram Discontinued Advance Care Planning Patient willing to discuss ACP. If in place, renew periodically. If not in place, recommend obtaining ACP. Assessment/Plan Problem List Items Addressed This Visit Unspecified systolic (congestive) heart failure (CMS/HCC) Stable for now no acute exacerbations Acquired hypothyroidism (CMS/HCC) Check labs Relevant Orders CBC and differential Comprehensive metabolic panel TSH W/REFLEX TO FT4 Chronic diastolic (congestive) heart failure Stable Chronic systolic (congestive) heart failure Continue current meds Hypercholesterolemia ([facility]/HCC) This is a chronic medical condition that is stable since last assessment. No changes in treatment are suggested at this time. Continue Current meds. Relevant Orders CBC and differential Comprehensive metabolic panel Lipid panel Hyperlipidemia ([facility]) This is a chronic medical condition that is stable since last assessment. No changes in treatment are suggested at this time. Continue Current meds. Relevant Orders CBC and differential Comprehensive metabolic panel Lipid panel Hypertensive heart disease with heart failure ([facility]) BP is controlled Other cardiomyopathies Stable continue current medicines Type 2 diabetes mellitus with peripheral vascular disease ([facility]) S/P CVA, continue current meds F/Up with specialists Relevant Orders CBC and differential Comprehensive metabolic panel Microalbumin / creatinine urine ratio POCT Glycated hemoglobin, total (Completed) Vascular dementia, unspecified severity, without behavioral disturbance, psychotic disturbance, mood disturbance, and anxiety ([facility]) Stable overall, continue mental exercises such as word searches, Sodoku and Crosswords Medicare annual wellness visit, subsequent Colonoscopy every 10 years or Cologuard every [...] Ultrasound of Aorta to screen for Anuerysm Relevant Orders CBC and differential Comprehensive metabolic panel Lipid panel Microalbumin / creatinine urine ratio TSH W/REFLEX TO FT4 Type 2 diabetes mellitus with foot ulcer (CODE) Sees Podiatry Recommend Diabetic shoes Paperwork completed and agree with podiatry assessment Non-pressure chronic ulcer of other part of left foot with fat layer exposed Recommend Diabetic shoes Pulmonary hypertension, unspecified ([facility]/HCC) Found on Echo Pulmonary pressures are 42 mmHg Type 2 diabetes mellitus with diabetic chronic kidney disease ([facility]) No Tobacco use Follow ADA 1800 diet [...] is 5.6 Chronic kidney disease, stage 3a (HCC) (CMS/HCC) Avoid NSAIDs such as Ibuprofen, Motrin, Naprosyn. Increase fluids. Other Visit Diagnoses Routine general medical examination at health care facility - Primary Orders Placed This Encounter Procedures CBC and differential Standing Status: Future Number of Occurrences: 1 Expected Date: 07/21/2024 Expiration Date: 07/21/2025 Print requisition?: No Comprehensive metabolic panel Standing Status: Future Number of Occurrences: 1 Expected Date: 07/21/2024 Expiration Date: 07/21/2025 Print requisition?: No Lipid panel Standing Status: Future Number of Occurrences: 1 Expected Date: 07/21/2024 Expiration Date: 07/21/2025 Microalbumin / creatinine urine ratio Standing Status: Future Number of Occurrences: 1 Expected Date: 07/21/2024 Expiration Date: 07/21/2025 Print requisition?: No TSH W/REFLEX TO FT4 Standing Status: Future Number of Occurrences: 1 Expected Date: 07/21/2024 Expiration Date: 07/21/2025 Print requisition?: No POCT Glycated hemoglobin, total Electronically signed by Hong Schilling MD on July 21, 2024 documented in this encounter [facility] 07-16-2024 History of Present illness Narrative Images from the original note were not included. Subjective Patient ID: Isabella Horne is a 74 y.o. female who presents for DM Foot Care (Established patient presents today for DM nail care. Patient also inquiring about diabetic shoes, patient states she's gotten them though our office in the past. PCP: Dr. Schilling [place] 07/17/23, [place] 07/21/24 A1C: 5.7, BS: 80-94). HPI Established patient returns to clinic for diabetic foot evaluation. Patient also enquiring about diabetic shoes. 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 CAD (coronary artery disease) ([facility]) 2014 Cerebrovascular accident ([facility]) 2006 CHF (congestive heart failure) ([facility]) Chronic ischemic heart disease COVID 11/17/2020 Positive, unvaccinated Diabetes mellitus ([facility]) 2013 Type 2 without complication Diverticulosis Dizziness Inner ear infection Edema GERD (gastroesophageal reflux disease) 2014 Heart disease Heat exhaustion UTI Hemoptysis 2014 History of being hospitalized 2006 Blood transfusion History of being hospitalized 11/20/2020 ER COVID pneumonia [facility] History of medical problems Sphincter History of tonsillitis Hypertension ([facility]) Hypothyroidism (acquired) ([facility]) Measles Mumps Myocardial infarction ([facility]) 12/03/2006 Osteoporosis ([facility]) Pneumonia 2014 Sebaceous cyst 2011 Thyroid disease ([facility]) Medications Current Outpatient Medications: ammonium lactate (Amlactin) 12 % cream, Apply topically Daily, Disp: 140 g, Rfl: 3 ASPIRIN 81 PO, Take by mouth, Disp: , Rfl: carvedilol (Coreg) 3.125 MG tablet, Take 1 tablet (3.125 mg) by mouth in the morning and 1 tablet (3.125 mg) before bedtime., Disp: 180 tablet, Rfl: 0 cinnamon 500 MG capsule, Take 500 mg [...] mcg) by mouth in the morning., Disp: 90 tablet, Rfl: 0 magnesium 250 MG tablet, every 12 (twelve) hours, Disp: , Rfl: Multiple Vitamins-Minerals (Thera-M) tablet, Take 1 tablet by mouth in the morning., Disp: , Rfl: omeprazole (PriLOSEC) [address] capsule, TAKE 1 CAPSULE EVERY DAY, Disp: 60 capsule, Rfl: 0 oxybutynin XL (Ditropan-XL) 15 MG 24 hr tablet, Take 1 tablet (15 mg) by mouth in the morning., Disp: 90 tablet, Rfl: 0 pravastatin (Pravachol) 40 MG tablet, Take 1 tablet (40 mg) by mouth Daily, Disp: 90 tablet, Rfl: 0 sacubitril-valsartan (Entresto) 49-51 MG tablet, every 12 (twelve) hours, Disp: , Rfl: fluticasone (Flonase) 50 MCG/ACT [...] with neurological manifestations, not stated as uncontrolled(250.60) (CMS/[facility]) E11.49 2. Onychodystrophy L60.3 3. Onychomycosis B35.1 4. Hammer toe of left foot M20.42 5. Corns and callosities L84 6. Contracture of toe of left foot M20.5X2 7. Peripheral vascular disease ([facility]) I73.9 Patient examined and evaluated. 10 toenails were debrided in length and thickness today utilizing a nail nipper and electric bur floor grinder without incident. I have discussed the importance of daily foot examinations and tight blood sugar control. We will follow up in 3 months for at risk diabetic foot evaluation. Patient is an excellent candidate for diabetic shoes due to pedal deformities as well as significant neuropathy. Diabetic shoes may help to reduce the risk of ulceration going forward. We will complete the diabetic shoe paperwork and when we receive the paperwork back from the patient's primary care physician we will have the patient return for diabetic shoe measuring. This note was created with the assistance of a speech recognition program. While intending to generate a timely document that accurately reflects the content of the visit, no guarantee can be provided that every grammatical or spelling mistake has been or will be identified or corrected. Thank you for your understanding. Ariel Lopez DPM documented in this encounter [facility] 06-25-2024 Note [facility] Cardiology Clinic Note Chief Complaint: Patient [...] past medical history of Abnormal ECG, Cancer (CMS/HCC), CHF (congestive heart failure) (CMS/HCC), Coronary artery disease, Heart valve disease, and [...] mood, affect, a (more content not included)... [facility] 06-17-2024 History of Present illness Narrative [...] of cardiovascular function studies 03/10/2013 Acquired hypothyroidism ([facility]) 01/19/2015 Adenoid cystic carcinoma ([facility]) 11/16/2020 Allergic rhinitis 01/19/2015 Anger reaction 08/09/2017 Asymmetrical sensorineural hearing loss 08/13/2019 Calculus of gallbladder without cholecystitis without obstruction 09/04/2022 Chronic diastolic heart failure ([facility]) 09/04/2022 Chronic systolic heart failure ([facility]) 03/12/2012 Conductive hearing loss, bilateral 03/24/2019 Diabetic renal disease ([facility]) 07/01/2015 Diabetic retinopathy associated with type 2 diabetes mellitus ([facility]) 05/21/2018 Diastolic dysfunction with acute on chronic heart failure ([facility]) 02/17/2016 Disorder of lipid metabolism ([facility]) 09/23/2013 COVID-19 virus detected 11/23/2020 Edema 01/19/2015 Elevated liver enzymes 09/04/2022 Acquired hammer toe of left foot 09/04/2022 Acquired hammer toe of right foot 09/04/2022 Hammer toe 09/04/2022 Headache 09/02/2015 Hiatal hernia 06/28/2015 History of COVID-19 09/04/2022 History of stroke without residual deficits 01/01/2015 Hypercholesterolemia ([facility]) 11/28/2016 Hyperlipidemia ([facility]) 03/12/2012 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 disorder ([facility]) 01/01/2015 Hypertensive heart failure ([facility]) 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 04/11/2018 Loss of taste 11/18/2020 LPRD (laryngopharyngeal reflux disease) 12/27/2016 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 breast ([facility]) 09/04/2022 Mild episode of recurrent major depressive disorder (HCC) ([facility]) 09/04/2022 Mitral valve disorder 03/12/2012 Mild nonproliferative diabetic retinopathy associated with type 2 diabetes mellitus ([facility]) 09/04/2022 Moderate nonproliferative diabetic retinopathy without macular edema associated with type 2 diabetes mellitus ([facility]) 11/18/2015 Neuropathy 09/02/2015 Nonproliferative diabetic retinopathy of left eye ([facility]) 01/01/2020 Osteoporosis ([facility]) 03/01/2015 Ischemic heart disease ([facility]) 03/10/2013 Other forms of chronic ischemic heart disease 09/23/2013 Paralyzed vocal cords 11/28/2016 Peripheral angiopathy due to type 2 diabetes mellitus ([facility]) 09/17/2018 Diabetic autonomic neuropathy associated with type 2 diabetes mellitus ([facility]) 08/22/2018 Diabetic peripheral neuropathy associated with type 2 diabetes mellitus ([facility]) 09/23/2015 Polyneuropathy due to type 2 diabetes mellitus ([facility]) 09/04/2022 Primary osteoarthritis, right hand 09/04/2022 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 accident 03/24/2019 Retained orthopedic hardware 03/04/2019 RLS (restless legs syndrome) 11/28/2016 Seasonal allergic rhinitis due to pollen 06/05/2017 Secondary cardiomyopathy ([facility]) 09/04/2022 Tension headache 02/17/2016 Thrombocytopenia ([facility]) 11/22/2020 Triple negative malignant neoplasm of breast ([facility]) 09/04/2022 Type 2 diabetes mellitus with peripheral vascular disease ([facility]) 09/04/2022 Type 2 diabetes mellitus 03/12/2012 Vascular dementia 09/04/2022 Reduced ejection fraction concurrent with and due to chronic heart failure ([facility]) 11/21/2018 Sensorineural hearing loss, unilateral, right ear, with unrestricted hearing on the contralateral side 09/15/2019 Medicare annual wellness visit, subsequent 09/06/2022 Personal history of breast cancer 11/22/2022 Numbness and tingling of both legs 05/07/2023 Spinal stenosis of lumbar region with neurogenic claudication 05/07/2023 Benign essential hypertension ([facility]) 07/17/2023 Abnormal ECG 04/02/2023 Hx of CABG 04/02/2023 Resolved Ambulatory Problems Diagnosis Date Noted No Resolved Ambulatory Problems Past Medical History: Diagnosis Date 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 Aphasia Arthritis Breast cancer ([facility]) 11/17/2020 CAD (coronary artery disease) ([facility]) 2014 Cerebrovascular accident ([facility]) 2006 CHF (congestive heart failure) ([facility]) Chronic ischemic heart disease COVID 11/17/2020 Diabetes mellitus ([facility]) 2013 Diverticulosis Dizziness GERD (gastroesophageal reflux disease) 2014 Heart disease Heat exhaustion Hemoptysis 2014 History of being hospitalized 2006 History of being hospitalized 11/20/2020 History of medical problems History of tonsillitis Hypertension (CMS/HCC) Hypothyroidism (acquired) (CMS/HCC) Measles Mumps Myocardial infarction (CMS/HCC) 12/03/2006 Pneumonia 2014 Sebaceous cyst 2011 Thyroid disease (CMS/HCC) Past Surgical History: Procedure Laterality Date ANAL [...] Recommend michele BELLAMY documented in this encounter [facility] 06-13-2024 History of Present illness [...] at 70 dBHL (masked) = 88% Tympanometry [place] equipment not working documented in this encounter [facility] 04-14-2024 History of Present illness [...] Past Medical History: Diagnosis Date Acquired hypothyroidism ([facility]) 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 CAD (coronary artery disease) ([facility]) 2014 Cerebrovascular accident ([facility]) 2006 CHF (congestive heart failure) ([facility]) Chronic ischemic heart disease ([facility]) COVID 11/17/2020 Positive, unvaccinated Diabetes mellitus ([facility]) 2013 Type 2 without complication Diverticulosis Dizziness Inner ear infection Edema GERD (gastroesophageal reflux disease) 2014 Heart disease Heat exhaustion UTI Hemoptysis 2014 History of being hospitalized 2007 Blood transfusion History of being hospitalized 11/20/2020 ER COVID pneumonia [facility] History of medical problems Sphincter History of tonsillitis Hypertension ([facility]) Hypothyroidism (acquired) ([facility]) Measles Mumps Myocardial infarction ([facility]) 12/03/2006 Osteoporosis ([facility]) Pneumonia 2014 Sebaceous cyst 2011 Thyroid disease ([facility]) Medications Current Outpatient Medications: ammonium [...] with neurological manifestations, not stated as uncontrolled(250.60) (CMS/[facility]) E11.49 2. Onychodystrophy L60.3 3. [...] utilizing a nail nipper and electric bur floor grinder without incident. 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 CAD (coronary artery disease) ([facility]) 2013 Cerebrovascular accident ([facility]) 2006 CHF (congestive heart failure) ([facility]) Chronic ischemic heart disease ([facility]) COVID 11/17/2020 Positive, unvaccinated Diabetes mellitus ([facility]) 2013 Type 2 without complication Diverticulosis Dizziness Inner ear infection Edema GERD (gastroesophageal reflux disease) 2014 Heart disease Heat exhaustion UTI Hemoptysis 2014 History of being hospitalized 2006 Blood transfusion History of being hospitalized 11/20/2020 ER COVID pneumonia [facility] History of medical problems Sphincter History of tonsillitis Hypertension ([facility]) Hypothyroidism (acquired) ([facility]) Measles Mumps Myocardial infarction ([facility]) 12/03/2006 Osteoporosis ([facility]) Pneumonia 2014 Sebaceous cyst 2011 Thyroid disease ([facility]) Medications Current Outpatient Medications: ammonium [...] with neurological manifestations, not stated as uncontrolled(250.60) ([facility]) E11.49 2. 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 CAD (coronary artery disease) ([facility]) 2013 Cerebrovascular accident ([facility]) 2006 CHF (congestive heart failure) ([facility]) Chronic ischemic heart disease ([facility]) COVID 11/17/2020 Positive, unvaccinated Diabetes mellitus ([facility]) 2013 Type 2 without complication Diverticulosis Dizziness Inner ear infection Edema GERD (gastroesophageal reflux disease) 2014 Heart disease Heat exhaustion UTI Hemoptysis 2014 History of being hospitalized 2007 Blood transfusion History of being hospitalized 11/20/2020 ER COVID pneumonia [facility] History of medical problems Sphincter History of tonsillitis Hypertension ([facility]) Hypothyroidism (acquired) ([facility]) Measles Mumps Myocardial infarction ([facility]) 12/03/2006 Osteoporosis ([facility]) Pneumonia 2014 Sebaceous cyst 2011 Thyroid disease ([facility]) Social History Tobacco Use Smoking [...] m Physical Exam Exam conducted with a asphalt machine operator present. HENT: Head: Normocephalic. 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 CAD (coronary artery disease) ([facility]) 2013 Cerebrovascular accident ([facility]) 2006 CHF (congestive heart failure) ([facility]) Chronic ischemic heart disease ([facility]) COVID 11/17/2020 Positive, unvaccinated Diabetes mellitus ([facility]) 2012 Type 2 without complication Diverticulosis Dizziness Inner ear infection Edema GERD (gastroesophageal reflux disease) 2013 Heart disease Heat exhaustion UTI Hemoptysis 2013 History of being hospitalized 2006 Blood transfusion History of being hospitalized 11/20/2020 ER COVID pneumonia [facility] History of medical problems Sphincter History of tonsillitis Hypertension (CMS/HCC) Hypothyroidism (acquired) ([facility]) Measles Mumps Myocardial infarction ([facility]/HCC) 12/03/2006 Osteoporosis (CMS/HCC) Pneumonia 2014 Sebaceous cyst 2011 Thyroid disease ([facility]) Medications Current Outpatient Medications: ASPIRIN [...] Left 2008 CATARACT EXTRACTION Right 2018 COLONOSCOPY 2012 CORONARY ARTERY BYPASS GRAFT 2007 DERMOID CYST [...] with neurological manifestations, not stated as uncontrolled(250.60) ([facility]) E11.49 2. Ulcer of left foot with fat layer exposed ([facility]) L97.522 3. Hammer toe of left foot M20.42 4. Contracture of toe of left foot M20.5X2 5. Peripheral vascular disease ([facility]) I73.9 Patient examined and evaluated. [...] Ariel Lopez DPM documented in this encounter [facility] 11-18-2020 Note PROCEDURE: XR SHOULD [...] Mild degenerative changes Electronically authenticated by: JHONNY SALAS Date: 2020-11-18 14:15 [facility] Evaluation note Diagnosis Onset Date Abnormal ECG acute Coronary artery disease acut e Hx of CABG acute Ischemic cardiomyopathy acut e Adenoid cystic carcinoma of breast acute [facility] Work Phone: Evaluation noteNo assessment information available [facility] Work Phone: Evaluation note* Diagnosis Diabetic autonomic [...] peripheral vascular disease documented in this encounter [facility] HealthcareEvaluation note* Diagnosis Diabetic autonomic neuropathy associated with type 2 diabetes mellitus (CMS/HCC)- Primary Type II or unspecified type diabetes mellitus with neurological manifestations, not stated as uncontrolled Acquired hypothyroidism (CMS/HCC) Unspecified hypothyroidism Diabetic nephropathy associated with type 2 diabetes mellitus (HCC) ([facility]/HCC) Chronic systolic heart failure ([facility]/HCC) Chronic systolic heart failure Type 2 diabetes mellitus with peripheral vascular disease ([facility]/HCC) Routine general medical examination at health care facility- Primary Routine general medical examination at a health care facility Abnormal glucose tolerance test Impaired glucose tolerance test Benign essential hypertension ([facility]) Essential hypertension, benign Medicare annual wellness visit, subsequent Acquired hypothyroidism ([facility]) Unspecified hypothyroidism Type 2 diabetes mellitus with peripheral vascular disease ([facility]/HCC) Hypercholesterolemia ([facility]) Pure hypercholesterolemia Hyperlipidemia, unspecified hyperlipidemia type ([facility]) Spinal stenosis of lumbar region with neurogenic claudication Malignant neoplasm of central portion of right breast in female, estrogen receptor negative ([facility])- Primary documented in this encounter [facility] HealthcareEvaluation note* Diagnosis Diabetic autonomic neuropathy associated with type 2 diabetes mellitus (CMS/HCC)- Primary Type II or unspecified type diabetes mellitus with neurological manifestations, not stated as uncontrolled Acquired hypothyroidism ([facility]/HCC) Unspecified hypothyroidism Diabetic nephropathy associated with type 2 diabetes mellitus (HCC) ([facility]/HCC) Chronic systolic heart failure ([facility]) Chronic systolic heart failure Type 2 diabetes mellitus with peripheral vascular disease ([facility]/HCC) Routine general medical examination at health care facility- Primary Routine general medical examination at a health care facility Abnormal glucose tolerance test Impaired glucose tolerance test Benign essential hypertension ([facility]/HCC) Essential hypertension, benign Medicare annual wellness visit, subsequent Acquired hypothyroidism ([facility]/HCC) Unspecified hypothyroidism Type 2 diabetes mellitus with peripheral vascular disease ([facility]/HCC) Hypercholesterolemia ([facility]) Pure hypercholesterolemia Hyperlipidemia, unspecified hyperlipidemia type ([facility]/HCC) Spinal stenosis of lumbar region with neurogenic claudication Type II or unspecified type diabetes mellitus with neurological manifestations, not stated as uncontrolled(250.60) ([facility])- Primary Type II or unspecified type diabetes mellitus with neurological manifestations, not stated as uncontrolled Hammer toe of left foot Contracture of toe of left foot Corns and callosities documented in this encounter [facility]* Diagnosis Diabetic autonomic neuropathy associated with type 2 diabetes mellitus ([facility]/HCC)- Primary Type II or unspecified type diabetes mellitus with neurological manifestations, not stated as uncontrolled Acquired hypothyroidism ([facility]/HCC) Unspecified hypothyroidism Diabetic nephropathy associated with type 2 diabetes mellitus (HCC) ([facility]/HCC) Chronic systolic heart failure ([facility]/HCC) Chronic systolic heart failure Type 2 diabetes mellitus with peripheral vascular disease ([facility]/HCC) Routine general medical examination at health care facility- Primary Routine general medical examination at a health care facility Abnormal glucose tolerance test Impaired glucose tolerance test Benign essential hypertension ([facility]) Essential hypertension, benign Medicare annual wellness visit, subsequent Acquired hypothyroidism ([facility]) Unspecified hypothyroidism Type 2 diabetes mellitus with peripheral vascular disease ([facility]) Hypercholesterolemia ([facility]) Pure hypercholesterolemia Hyperlipidemia, unspecified hyperlipidemia type ([facility]) Spinal stenosis of lumbar region with neurogenic claudication Type II or unspecified type diabetes mellitus with neurological manifestations, not stated as uncontrolled(250.60) ([facility])- Primary Type II or unspecified type diabetes mellitus with neurological manifestations, not stated as uncontrolled Onychodystrophy Other specified disease of nail Onychomycosis Dermatophytosis of nail documented in this encounter [facility]* Diagnosis Diabetic autonomic neuropathy associated with type 2 diabetes mellitus ([facility]/HCC)- Primary Type II or unspecified type diabetes mellitus with neurological manifestations, not stated as uncontrolled Acquired hypothyroidism ([facility]) Unspecified hypothyroidism Diabetic nephropathy associated with type 2 diabetes mellitus (HCC) ([facility]) Chronic systolic heart failure ([facility]) Chronic systolic heart failure Type 2 diabetes mellitus with peripheral vascular disease ([facility]) Routine general medical examination at health care facility- Primary Routine general medical examination at a health care facility Abnormal glucose tolerance test Impaired glucose tolerance test Benign essential hypertension ([facility]) Essential hypertension, benign Medicare annual wellness visit, subsequent Acquired hypothyroidism ([facility]) Unspecified hypothyroidism Type 2 diabetes mellitus with peripheral vascular disease ([facility]/HCC) Hypercholesterolemia ([facility]) Pure hypercholesterolemia Hyperlipidemia, unspecified hyperlipidemia type ([facility]) Spinal stenosis of lumbar region with neurogenic claudication Asymmetrical sensorineural hearing loss- Primary Sensorineural hearing loss, asymmetrical Impaired auditory discrimination, right documented in this encounter [facility]* Diagnosis Diabetic autonomic neuropathy associated with type 2 diabetes mellitus ([facility]/HCC)- Primary Type II or unspecified type diabetes mellitus with neurological manifestations, not stated as uncontrolled Acquired hypothyroidism ([facility]) Unspecified hypothyroidism Diabetic nephropathy associated with type 2 diabetes mellitus (HCC) ([facility]) Chronic systolic heart failure ([facility]) Chronic systolic heart failure Type 2 diabetes mellitus with peripheral vascular disease ([facility]) Routine general medical examination at health care facility- Primary Routine general medical examination at a health care facility Abnormal glucose tolerance test Impaired glucose tolerance test Benign essential hypertension ([facility]) Essential hypertension, benign Medicare annual wellness visit, subsequent Acquired hypothyroidism ([facility]) Unspecified hypothyroidism Type 2 diabetes mellitus with peripheral vascular disease ([facility]) Hypercholesterolemia ([facility]) Pure hypercholesterolemia Hyperlipidemia, unspecified hyperlipidemia type ([facility]) Spinal stenosis of lumbar region with neurogenic claudication Asymmetric SNHL (sensorineural hearing loss) Sensorineural hearing loss, asymmetrical documented in this encounter [facility]* Diagnosis Diabetic autonomic neuropathy associated with type 2 diabetes mellitus ([facility])- Primary Type II or unspecified type diabetes mellitus with neurological manifestations, not stated as uncontrolled Acquired hypothyroidism ([facility]) Unspecified hypothyroidism Diabetic nephropathy associated with type 2 diabetes mellitus (HCC) ([facility]) Chronic systolic heart failure ([facility]) Chronic systolic heart failure Type 2 diabetes mellitus with peripheral vascular disease ([facility]) Routine general medical examination at health care facility- Primary Routine general medical examination at a health care facility Abnormal glucose tolerance test Impaired glucose tolerance test Benign essential hypertension ([facility]) Essential hypertension, benign Medicare annual wellness visit, subsequent Acquired hypothyroidism ([facility]) Unspecified hypothyroidism Type 2 diabetes mellitus with peripheral vascular disease ([facility]) Hypercholesterolemia ([facility]) Pure hypercholesterolemia Hyperlipidemia, unspecified hyperlipidemia type ([facility]) Spinal stenosis of lumbar region with neurogenic claudication Type II or unspecified type diabetes mellitus with neurological manifestations, not stated as uncontrolled(250.60) ([facility])- Primary Type II or unspecified type diabetes mellitus with neurological manifestations, not stated as uncontrolled Onychodystrophy Other specified disease of nail Onychomycosis Dermatophytosis of nail Hammer toe of left foot Corns and callosities Contracture of toe of left foot Peripheral vascular disease ([facility]) Unspecified peripheral vascular disease documented in this encounter [facility]* Diagnosis Diabetic autonomic neuropathy associated with type 2 diabetes mellitus ([facility])- Primary Type II or unspecified [...] stenosis of lumbar region with neurogenic claudication Routine general medical examination at health care facility- Primary Routine general medical examination at a health care facility Medicare annual wellness visit, subsequent Acquired hypothyroidism (CMS/HCC) Unspecified hypothyroidism Type 2 diabetes mellitus with peripheral vascular disease (CMS/HCC) Hypercholesterolemia (CMS/HCC) Pure hypercholesterolemia Hyperlipidemia, unspecified hyperlipidemia type (CMS/HCC) Type 2 diabetes mellitus with foot ulcer (CODE) Non-pressure chronic ulcer of other part of left foot with fat layer exposed Pulmonary hypertension, unspecified (CMS/HCC) Type 2 diabetes mellitus with diabetic chronic kidney disease (CMS/HCC) Chronic kidney disease, stage 3a (HCC) (CMS/HCC) Cardiomyopathy, unspecified Other cardiomyopathies Chronic diastolic (congestive) heart failure Chronic systolic (congestive) heart failure Hypertensive heart disease with heart failure (CMS/HCC) Unspecified hypertensive heart disease with heart failure Unspecified systolic (congestive) heart failure (CMS/HCC) Vascular dementia, unspecified severity, without behavioral disturbance, psychotic disturbance, mood disturbance, and anxiety (CMS/HCC) documented in this encounter [facility] HealthcareEvaluation note* Diagnosis Diabetic autonomic neuropathy [...] 2 diabetes mellitus with peripheral vascular disease ([facility]/HCC) Hypercholesterolemia ([facility]/HCC) Pure hypercholesterolemia Hyperlipidemia, unspecified hyperlipidemia type ([facility]/HCC) Spinal stenosis of lumbar region with neurogenic claudication Routine general medical examination at health care facility- Primary Routine general medical examination at a health care facility Medicare annual wellness visit, subsequent Acquired hypothyroidism (CMS/HCC) Unspecified hypothyroidism Type 2 diabetes mellitus with peripheral vascular disease ([facility]/HCC) Hypercholesterolemia ([facility]/HCC) Pure hypercholesterolemia Hyperlipidemia, unspecified hyperlipidemia type ([facility]/HCC) Type 2 diabetes mellitus with foot ulcer (CODE) Non-pressure chronic ulcer of other part of left foot with fat layer exposed Pulmonary hypertension, unspecified ([facility]/HCC) Type 2 diabetes mellitus with diabetic chronic kidney disease ([facility]/HCC) Chronic kidney disease, stage 3a ([facility]) ([facility]) Cardiomyopathy, unspecified Other cardiomyopathies Chronic diastolic (congestive) heart failure Chronic systolic (congestive) heart failure Hypertensive heart disease with heart failure ([facility]/HCC) Unspecified hypertensive heart disease with heart failure Unspecified systolic (congestive) heart failure ([facility]) Vascular dementia, unspecified severity, without behavioral disturbance, psychotic disturbance, mood disturbance, and anxiety ([facility]) Type II or unspecified type diabetes mellitus with neurological manifestations, not stated as uncontrolled(250.60) ([facility])- Primary Type II or unspecified type diabetes mellitus with neurological manifestations, not stated as uncontrolled Hammer toe of left foot Corns and callosities Contracture of toe of left foot Peripheral vascular disease ([facility]) Unspecified peripheral vascular disease documented in this encounter [facility]* Diagnosis Diabetic autonomic neuropathy associated with type 2 diabetes mellitus (HCC)- Primary Type II or unspecified type diabetes mellitus with neurological manifestations, not stated as uncontrolled Acquired hypothyroidism Unspecified hypothyroidism Diabetic nephropathy associated with type 2 diabetes mellitus (HCC) Chronic systolic heart failure (HCC) Chronic systolic heart failure Type 2 diabetes mellitus with peripheral vascular disease (HCC) Routine general medical examination at health care facility- Primary Routine general medical examination at a health care facility Abnormal glucose tolerance test Impaired glucose tolerance test Benign essential hypertension Essential hypertension, benign Medicare annual wellness visit, subsequent Acquired hypothyroidism Unspecified hypothyroidism Type 2 diabetes mellitus with peripheral vascular disease (HCC) Hypercholesterolemia Pure hypercholesterolemia Hyperlipidemia, unspecified hyperlipidemia type Spinal stenosis of lumbar region with neurogenic claudication Routine general medical examination at health care facility- Primary Routine general medical examination at a [facility] Medicare annual wellness visit, subsequent Acquired hypothyroidism Unspecified hypothyroidism Type 2 diabetes mellitus with peripheral vascular disease (HCC) Hypercholesterolemia Pure hypercholesterolemia Hyperlipidemia, unspecified hyperlipidemia type Type 2 diabetes mellitus with foot ulcer (CODE) (HCC) 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) Pulmonary hypertension, unspecified (HCC) Type 2 diabetes mellitus with diabetic chronic kidney disease (HCC) Chronic kidney disease, stage 3a ([facility]-HCC) Cardiomyopathy, unspecified (HCC) Other cardiomyopathies (HCC) Chronic diastolic (congestive) heart failure (HCC) Chronic systolic (congestive) heart failure (HCC) Hypertensive heart disease with heart failure (HCC) Unspecified hypertensive heart disease with heart failure Unspecified systolic (congestive) heart failure (HCC) Vascular dementia, unspecified severity, without behavioral disturbance, psychotic disturbance, mood disturbance, and anxiety (HCC) Type II or unspecified type diabetes mellitus with neurological manifestations, not stated as uncontrolled(250.60) ([facility])- Primary Type II or unspecified type diabetes mellitus with neurological manifestations, not stated as uncontrolled Hammer toe of left foot Corns and callosities Contracture of toe of left foot Peripheral vascular disease Unspecified peripheral vascular disease documented in this encounter [facility] HealthcareEvaluation note* Diagnosis Diabetic autonomic neuropathy associated with type 2 diabetes mellitus (HCC)- Primary Type II or unspecified type diabetes mellitus with neurological manifestations, not stated as uncontrolled Acquired hypothyroidism Unspecified hypothyroidism Diabetic nephropathy associated with type 2 diabetes mellitus (HCC) Chronic systolic heart failure (HCC) Chronic systolic heart failure Type 2 diabetes mellitus with peripheral vascular disease (HCC) Routine general medical examination at [facility] facility- Primary Routine general medical examination at a [facility] Abnormal glucose tolerance test Impaired glucose tolerance test Benign essential hypertension Essential hypertension, benign Medicare annual wellness visit, subsequent Acquired hypothyroidism Unspecified hypothyroidism Type 2 diabetes mellitus with peripheral vascular disease (HCC) Hypercholesterolemia Pure hypercholesterolemia Hyperlipidemia, unspecified hyperlipidemia type Spinal stenosis of lumbar region with neurogenic claudication Routine general medical examination at [facility]- Primary Routine general medical examination at a [facility] Medicare annual wellness visit, subsequent Acquired hypothyroidism Unspecified hypothyroidism Type 2 diabetes mellitus with peripheral vascular disease (HCC) Hypercholesterolemia Pure hypercholesterolemia Hyperlipidemia, unspecified hyperlipidemia type Type 2 diabetes mellitus with foot ulcer (CODE) (HCC) 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) Pulmonary hypertension, unspecified (HCC) Type 2 diabetes mellitus with diabetic chronic kidney disease (HCC) Chronic kidney disease, stage 3a (CMS-HCC) Cardiomyopathy, unspecified (HCC) Other cardiomyopathies (HCC) Chronic diastolic (congestive) heart failure (HCC) Chronic systolic (congestive) heart failure (HCC) Hypertensive heart disease with heart failure (HCC) Unspecified hypertensive heart disease with heart failure Unspecified systolic (congestive) heart failure (HCC) Vascular dementia, unspecified severity, without behavioral disturbance, psychotic disturbance, mood disturbance, and anxiety (HCC) Asymmetrical sensorineural hearing loss- Primary Sensorineural hearing loss, asymmetrical documented in this encounter [facility]* Diagnosis Diabetic autonomic neuropathy associated with type 2 diabetes mellitus (HCC)- Primary Type II or unspecified type diabetes mellitus with neurological manifestations, not stated as uncontrolled Acquired hypothyroidism Unspecified hypothyroidism Diabetic nephropathy associated with type 2 diabetes mellitus (HCC) Chronic systolic heart failure (HCC) Chronic systolic heart failure Type 2 diabetes mellitus with peripheral vascular disease (HCC) Routine general medical examination at health care facility- Primary Routine general medical examination at a health care facility Abnormal glucose tolerance test Impaired glucose tolerance test Benign essential hypertension Essential hypertension, benign Medicare annual wellness visit, subsequent Acquired hypothyroidism Unspecified hypothyroidism Type 2 diabetes mellitus with peripheral vascular disease (HCC) Hypercholesterolemia Pure hypercholesterolemia Hyperlipidemia, unspecified hyperlipidemia type Spinal stenosis of lumbar region with neurogenic claudication Routine general medical examination at health care facility- Primary Routine general medical examination at a health care facility Medicare annual wellness visit, subsequent Acquired hypothyroidism Unspecified hypothyroidism Type 2 diabetes mellitus with peripheral vascular disease (HCC) Hypercholesterolemia Pure hypercholesterolemia Hyperlipidemia, unspecified hyperlipidemia type Type 2 diabetes mellitus with foot ulcer (CODE) (HCC) 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) Pulmonary hypertension, unspecified (HCC) Type 2 diabetes mellitus with diabetic chronic kidney disease (HCC) Chronic kidney disease, stage 3a (CMS-HCC) Cardiomyopathy, unspecified (HCC) Other cardiomyopathies (HCC) Chronic diastolic (congestive) heart failure (HCC) Chronic systolic (congestive) heart failure (HCC) Hypertensive heart disease with heart failure (HCC) Unspecified hypertensive heart disease with heart failure Unspecified systolic (congestive) heart failure (HCC) Vascular dementia, unspecified severity, without behavioral disturbance, psychotic disturbance, mood disturbance, and anxiety (HCC) Asymmetrical sensorineural hearing loss- Primary Sensorineural hearing loss, asymmetrical documented in this encounter [facility]* Diagnosis Diabetic autonomic neuropathy associated with type 2 diabetes mellitus (HCC)- Primary Type II or unspecified type diabetes mellitus with neurological manifestations, not stated as uncontrolled Acquired hypothyroidism Unspecified hypothyroidism Diabetic nephropathy associated with type 2 diabetes mellitus (HCC) Chronic systolic heart failure (HCC) Chronic systolic heart failure Type 2 diabetes mellitus with peripheral vascular disease (HCC) Routine general medical examination at health care facility- Primary Routine general medical examination at a health care facility Abnormal glucose tolerance test Impaired glucose tolerance test Benign essential hypertension Essential hypertension, benign Medicare annual wellness visit, subsequent Acquired hypothyroidism Unspecified hypothyroidism Type 2 diabetes mellitus with peripheral vascular disease (HCC) Hypercholesterolemia Pure hypercholesterolemia Hyperlipidemia, unspecified hyperlipidemia type Spinal stenosis of lumbar region with neurogenic claudication Routine general medical examination at health care facility- Primary Routine general medical examination at a health care [facility] Medicare annual wellness visit, subsequent Acquired hypothyroidism Unspecified hypothyroidism Type 2 diabetes mellitus with peripheral vascular disease (HCC) Hypercholesterolemia Pure hypercholesterolemia Hyperlipidemia, unspecified hyperlipidemia type Type 2 diabetes mellitus with foot ulcer (CODE) (HCC) 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) Pulmonary hypertension, unspecified (HCC) Type 2 diabetes mellitus with diabetic chronic kidney disease (HCC) Chronic kidney disease, stage 3a (CMS-HCC) Cardiomyopathy, unspecified (HCC) Other cardiomyopathies (HCC) Chronic diastolic (congestive) heart failure (HCC) Chronic systolic (congestive) heart failure (HCC) Hypertensive heart disease with heart failure (HCC) Unspecified hypertensive heart disease with heart failure Unspecified systolic (congestive) heart failure (HCC) Vascular dementia, unspecified severity, without behavioral disturbance, psychotic disturbance, mood disturbance, and anxiety (HCC) Infection of index finger- Primary Chronic kidney disease, stage 3a (CMS-HCC) documented in this encounter [facility] HealthcareEvaluation note* Diagnosis Diabetic autonomic neuropathy associated with type 2 diabetes mellitus (HCC)- Primary Type II or unspecified type diabetes mellitus with neurological manifestations, not stated as uncontrolled Acquired hypothyroidism Unspecified hypothyroidism Diabetic nephropathy associated with type 2 diabetes mellitus (HCC) Chronic systolic heart failure (HCC) Chronic systolic heart failure Type 2 diabetes mellitus with peripheral vascular disease (HCC) Routine general medical examination at health care facility- Primary Routine general medical examination at a health care facility Abnormal glucose tolerance test Impaired glucose tolerance test Benign essential hypertension Essential hypertension, benign Medicare annual wellness visit, subsequent Acquired hypothyroidism Unspecified hypothyroidism Type 2 diabetes mellitus with peripheral vascular disease (HCC) Hypercholesterolemia Pure hypercholesterolemia Hyperlipidemia, unspecified hyperlipidemia type Spinal stenosis of lumbar region with neurogenic claudication Routine general medical examination at health care facility- Primary Routine general medical examination at a health care facility Medicare annual wellness visit, subsequent Acquired hypothyroidism Unspecified hypothyroidism Type 2 diabetes mellitus with peripheral vascular disease (HCC) Hypercholesterolemia Pure hypercholesterolemia Hyperlipidemia, unspecified hyperlipidemia type Type 2 diabetes mellitus with foot ulcer (CODE) (HCC) 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) Pulmonary hypertension, unspecified (HCC) Type 2 diabetes mellitus with diabetic chronic kidney disease (HCC) Chronic kidney disease, stage 3a (CMS-HCC) Cardiomyopathy, unspecified (HCC) Other cardiomyopathies (HCC) Chronic diastolic (congestive) heart failure (HCC) Chronic systolic (congestive) heart failure (HCC) Hypertensive heart disease with heart failure (HCC) Unspecified hypertensive heart disease with heart failure Unspecified systolic (congestive) heart failure (HCC) Vascular dementia, unspecified severity, without behavioral disturbance, psychotic disturbance, mood disturbance, and anxiety (HCC) Infection of index finger- Primary Chronic kidney disease, stage 3a (CMS-HCC) Infection of index finger- Primary Swelling of index finger documented in this encounter [facility] HealthcareEvaluation note* Diagnosis Diabetic autonomic neuropathy associated with type 2 diabetes mellitus (HCC)- Primary Type II or unspecified type diabetes mellitus with neurological manifestations, not stated as uncontrolled Acquired hypothyroidism Unspecified hypothyroidism Diabetic nephropathy associated with type 2 diabetes mellitus (HCC) Chronic systolic heart failure (HCC) Chronic systolic heart failure Type 2 diabetes mellitus with peripheral vascular disease (HCC) Routine general medical examination at health care facility- Primary Routine general medical examination at a health care facility Abnormal glucose tolerance test Impaired glucose tolerance test Benign essential hypertension Essential hypertension, benign Medicare annual wellness visit, subsequent Acquired hypothyroidism Unspecified hypothyroidism Type 2 diabetes mellitus with peripheral vascular disease (HCC) Hypercholesterolemia Pure hypercholesterolemia Hyperlipidemia, unspecified hyperlipidemia type Spinal stenosis of lumbar region with neurogenic claudication Routine general medical examination at health care facility- Primary Routine general medical examination at a health care facility Medicare annual wellness visit, subsequent Acquired hypothyroidism Unspecified hypothyroidism Type 2 diabetes mellitus with peripheral vascular disease (HCC) Hypercholesterolemia Pure hypercholesterolemia Hyperlipidemia, unspecified hyperlipidemia type Type 2 diabetes mellitus with foot ulcer (CODE) (HCC) 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) Pulmonary hypertension, unspecified (HCC) Type 2 diabetes mellitus with diabetic chronic kidney disease (HCC) Chronic kidney disease, stage 3a (CMS-HCC) Cardiomyopathy, unspecified (HCC) Other cardiomyopathies (HCC) Chronic diastolic (congestive) heart failure (HCC) Chronic systolic (congestive) heart failure (HCC) Hypertensive heart disease with heart failure (HCC) Unspecified hypertensive heart disease with heart failure Unspecified systolic (congestive) heart failure (HCC) Vascular dementia, unspecified severity, without behavioral disturbance, psychotic disturbance, mood disturbance, and anxiety (HCC) Infection of index finger- Primary Chronic kidney disease, stage 3a (CMS-HCC) Asymmetrical sensorineural hearing loss- Primary Sensorineural hearing loss, asymmetrical Infection of index finger- Primary Swelling of index finger Full incontinence of feces documented in this encounter [facility] HealthcareEvaluation note* Diagnosis Diabetic autonomic neuropathy associated with type 2 diabetes mellitus (HCC)- Primary Type II or unspecified type diabetes mellitus with neurological manifestations, not stated as uncontrolled Acquired hypothyroidism Unspecified hypothyroidism Diabetic nephropathy associated with type 2 diabetes mellitus (HCC) Chronic systolic heart failure (HCC) Chronic systolic heart failure Type 2 diabetes mellitus with peripheral vascular disease (HCC) Routine general medical examination at health care facility- Primary Routine general medical examination at a health care facility Abnormal glucose tolerance test Impaired glucose tolerance test Benign essential hypertension Essential hypertension, benign Medicare annual wellness visit, subsequent Acquired hypothyroidism Unspecified hypothyroidism Type 2 diabetes mellitus with peripheral vascular disease (HCC) Hypercholesterolemia Pure hypercholesterolemia Hyperlipidemia, unspecified hyperlipidemia type Spinal stenosis of lumbar region with neurogenic claudication Routine general medical examination at health care facility- Primary Routine general medical examination at a health care facility Medicare annual wellness visit, subsequent Acquired hypothyroidism Unspecified hypothyroidism Type 2 diabetes mellitus with peripheral vascular disease (HCC) Hypercholesterolemia Pure hypercholesterolemia Hyperlipidemia, unspecified hyperlipidemia type Type 2 diabetes mellitus with foot ulcer (CODE) (HCC) 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) Pulmonary hypertension, unspecified (HCC) Type 2 diabetes mellitus with diabetic chronic kidney disease (HCC) Chronic kidney disease, stage 3a (CMS-HCC) Cardiomyopathy, unspecified (HCC) Other cardiomyopathies (HCC) Chronic diastolic (congestive) heart failure (HCC) Chronic systolic (congestive) heart failure (HCC) Hypertensive heart disease with heart failure (HCC) Unspecified hypertensive heart disease with heart failure Unspecified systolic (congestive) heart failure (HCC) Vascular dementia, unspecified severity, without behavioral disturbance, psychotic disturbance, mood disturbance, and anxiety (HCC) Infection of index finger- Primary Chronic kidney disease, stage 3a (CMS-HCC) Infection of index finger- Primary Swelling of index finger Full incontinence of feces Onychodystrophy- Primary Other specified disease of nail Onychomycosis Dermatophytosis of nail Type II or unspecified type diabetes mellitus with neurological manifestations, not stated as uncontrolled(250.60) (HCC) Type II or unspecified type diabetes mellitus with neurological manifestations, not stated as uncontrolled [facility]: Summary Purpose Family [...] and content) DATE CREATED AUTHOR 07/31/2017 [facility] DATE CREATED AUTHOR AUTHOR'S ORGANIZ ATION 01/23/2020 [facility] DATE CREATED AUTHOR AUTHOR'S ORGANIZ ATION 04/06/2021 [facility] dical Specialist DATE CREATED AUTHOR AUTHOR'S ORGANIZ ATION 11/12/2021 [facility] pital DATE CREATED AUTHOR AUTHOR'S ORGANIZ ATION 11/27/2023 [facility] DATE CREATED AUTHOR AUTHOR'S ORGANIZ ATION 07/11/2024 [facility] DATE CREATED AUTHOR AUTHOR'S ORGANIZ ATION 07/24/2024 [facility] DATE CREATED AUTHOR AUTHOR'S ORGANIZ ATION 10/24/2024 [facility] dical Specialists EPIC Care Teams (unrecognized sec [...] November 26, 2023 End: November 26, 2023 Computer Engineer Relationship Specialty Start Date End Date Hong Schilling MD [address] [facility] [address] [place] [address] PCP - General Family Medicine 07/25/22 Hong Schilling MD [address] [facility] [address] [place] [address] PCP - ACO Reach 04/13/23 Computer Engineer Relationship Specialty Start Date End Date Hong Schilling MD [address] [facility] [address] [place] [address] PCP - General Family Medicine 07/25/22 Hong Schilling MD [address] [facility] [address] [place] [address] PCP - ACO Reach 04/13/23 Computer Engineer Relationship Specialty Start Date End Date Hong Schilling MD [address] [facility] [address] [place] [address] PCP - General Family Medicine 07/25/22 Hong Schilling MD [address] [facility] [address] [place] [address] PCP - ACO Reach 04/13/23 Computer Engineer Relationship Specialty Start Date End Date Hong Schilling MD [address] [facility] [address] [place] [address] PCP - General Family Medicine 07/25/22 Hong Schilling MD [address] [facility] [address] [place] [address] PCP - ACO Reach 04/13/23 Computer Engineer Relationship Specialty Start Date End Date Hong Schilling MD [address] [facility] [address] [place] [address] PCP - General Family Medicine 07/25/22 Hong Schilling MD [address] [facility] [address] [place] [address] PCP - ACO Reach 04/13/23 Computer Engineer Relationship Specialty Start Date End Date Hong Schilling MD [address] [facility] [address] [place] [address] PCP - General Family Medicine 07/25/22 Hong Schilling MD [address] [facility] [address] [place] [address] PCP - ACO Reach 04/13/23 Computer Engineer Relationship Specialty Start Date End Date Hong Schilling MD [address] [facility] [address] [place] [address] PCP - General Family Medicine 07/25/22 Hong Schilling MD [address] [facility] [address] [place] [address] PCP - ACO Reach 04/13/23 Computer Engineer Relationship Specialty Start Date End Date Hong Schilling MD [address] [facility] [address] [place] [address] PCP - General Family Medicine 07/25/22 Hong Schilling MD [address] [facility] [address] [place] [address] PCP - ACO Reach 04/13/23 Computer Engineer Relationship Specialty Start Date End Date Hong Schilling MD [address] [facility] [address] [place] [address] PCP - General Family Medicine 07/25/22 Hong Schilling MD [address] [facility] [address] [place] [address] PCP - ACO Reach 04/13/23 Computer Engineer Relationship Specialty Start Date End Date Hong Schilling MD [address] [facility] [address] [place] [address] PCP - General Family Medicine 07/25/22 Hong Schilling MD [address] [facility] [address] [place] [address] PCP - ACO Reach 04/13/23 Computer Engineer Relationship Specialty Start Date End Date Hong Schilling MD [address] [facility] [address] [place] [address] PCP - General Family Medicine 07/25/22 Hong Schilling MD [address] [facility] [address] [place] [address] PCP - ACO Reach 04/13/23 Computer Engineer Relationship Specialty Start Date End Date Hong Schilling MD [address] [facility] [address] [place] [address] PCP - General Family Medicine 07/25/22 Hong Schilling MD [address] [facility] [address] [place] [address] PCP - ACO Reach 04/13/23 Computer Engineer Relationship Specialty Start Date End Date Hong Schilling MD [address] [facility] [address] [place] [address] PCP - General Family Medicine 07/25/22 Hong Schilling MD [address] [facility] [address] [place] [address] PCP - ACO Reach 04/13/23 Computer Engineer Relationship Specialty Start Date End Date Hong Schilling MD [address] [facility] [address] [place] [address] PCP - General Family Medicine 07/25/22 Hong Schilling MD [address] [facility] [address] [place] [address] PCP - ACO Reach 04/13/23 Computer Engineer Relationship Specialty Start Date End Date Hong Schilling MD [address] [facility] [address] [place] [address] PCP - General Family Medicine 07/25/22 Hong Schilling MD [address] [facility] [address] [place] [address] PCP - ACO Reach 04/13/23 Computer Engineer Relationship Specialty Start Date End Date Hong Schilling MD [address] [facility] [address] [place] [address] PCP - General Family Medicine 07/25/22 Hong Schilling MD [address] [facility] [address] [place] [address] PCP - ACO Reach 04/13/23 Computer Engineer Relationship Specialty Start Date End Date Hong Schilling MD [address] [facility] [address] [place] [address] PCP - General Family Medicine 07/25/22 Hong Schilling MD [address] [facility] [address] [place] [address] PCP - ACO Reach 04/13/23 Computer Engineer Relationship Specialty Start Date End Date Hong Schilling MD [address] [facility] [address] [place] [address] PCP - General Family Medicine 07/25/22 Hong Schilling MD [address] [facility] [address] [place] [address] PCP - ACO Reach 04/13/23 Computer Engineer Relationship Specialty Start Date End Date Hong Schilling MD [address] [facility] [address] [place] [address] PCP - General Family Medicine 07/25/22 Hong Schilling MD [address] [facility] [address] [place] [address] PCP - ACO Reach 04/13/23 Computer Engineer Relationship Specialty Start Date End Date Hong Schilling MD [address] [facility] [address] [place] [address] PCP - General Family Medicine 07/25/22 Hong Schilling MD [address] [facility] [address] [place] [address] PCP - ACO Reach 04/13/23 Computer Engineer Relationship Specialty Start Date End Date Hong Schilling MD [address] [facility] [address] [place] [address] PCP - General Family Medicine 07/25/22 Hong Schilling MD [address] [facility] [address] [place] [address] PCP - ACO Reach 04/13/23 Goals (unrecognized [...] associated with syndrome of both ears Procedures [place] OFFICE/OUTPATIENT NEW HIGH MDM 60 MINUTES Hong Schilling MD [address] [facility] [address] [place] [address] Phone: tel: fax: Jamila Carcamo MD [address] [facility] [address] [place] [address] Phone: tel: fax: Referral ID Status Reason Start Date Expiration Date V isits Requested Visits Authorized [id number] Closed Specialty Services Required 04/21/2024 10/18/2024 1 1 Reason Comments DM Foot Care Established patient presents today for DM nail care. Patient also inquiring about diabetic shoes, patient states she's gotten them though our office in the past. PCP: Dr. 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 [address] Skinner, 3 HM inserts. A1c 5.8 SS8W Reason Onset Date Comments Advice Only 08/25/2024 Keeping DM shoes Reason Comments finger recheck Reason Comments DM Foot Care Pt is here today wit h her spouse for diaebtic foot careBS: 78 A1C: 5.6Lv Dr. Schilling 10-06-2024 FOR RECORDS PERTAINING TO PATIENTS WHO ARE [...] BE BASED ON THE PRIMARY CLINICAL RECORDS. [employer] provides no warranty or guarantee of the accuracy or completeness of information in this document.
[2024-10-31 12:32] VITALS: BP 148/77; PULSE 88; TEMP 36.5; O2SAT 98; BMI 28.3
--- NOTE | 2024-10-31 12:50 | CT_ITS ---
The [address] [address] Patient Name: ISABELLA HORNE MRN: [id number] date: 1950 Sex: F Assigned Patient Location: ER Current Patient Location: ER Accession/Order Number: [id number] Exam Date: 10/31/2024 12:58 Report Date: 10/31/2024 13:09 At the request of: HAYLEY GEORGE MD Procedure: CT head/brain wo con Unenhanced head CT TECHNIQUE: Contiguous axial imaging of the head. The CT exam was performed using one or more the following dose reduction techniques: Automated exposure control, adjustment of the MA and/or Kv according to patient size, or use of the iterative reconstruction technique. COMPARISON: None HISTORY: Fell 3 days ago. Headache. Blurred vision VENTRICLES: Within normal limits ATROPHY: Mild diffuse atrophy BRAIN PARENCHYMA: The focal temporoparietal gliosis and encephalomalacia on the left consistent with remote infarction. HEMORRHAGE: None HERNIATION: No mass effect or herniation INFARCTION: No recent vascular distribution infarction is seen. EXTRA-AXIAL FLUID COLLECTIONS None MIDBRAIN: Unremarkable SANJEEV: Unremarkable MEDULLA: Unremarkable SINUSES: Unremarkable ORBITS: Grossly unremarkable MASTOIDS: Unremarkable BONY STRUCTURES Intact ADDITIONAL FINDINGS: CT/CT head/brain wo con IMPRESSION: No acute findings. Impression dictated by: Cosme Villa M.D. 10/31/2024 1:09 PM Dictation Location: [place] [address] Electronically authenticated by: [id number] Y Date: 10/31/2024 13:09
--- NOTE | 2024-10-31 12:51 | ED.GENADUL1 ---
HPI HPI - General Adult General Chief complaint: Fall Stated complaint: BLURRY VISION - FALL 10/28/2024 Time Seen by Provider: 10/31/24 12:32 Source: patient Mode of arrival: walk-in History of Present Illness HPI narrative: 74-year-old female presented for intermittent blurry vision. 3 days ago she fell and she hit the back of her head on the ground. Since then she has had intermittent blurred vision. It is not blurred now. She called her eye doctor and they were going to see her this morning at a specific time but she would not have been able to get there by that appointment time. Both eyes have been blurred intermittently. No LOC or vomiting and no neck pain or other injury. Related Data Home Medications ?Medication ?Instructions ?Recorded ?Confirmed aspirin 81 mg tablet,delayed 81 mg PO DAILY 10/31/24 10/31/24 release (Adult Low Dose Aspirin) carvedilol 3.125 mg tablet mg 10/31/24 cinnamon bark 500 mg capsule 500 mg PO DAILY 10/31/24 10/31/24 (Cinnamon) empagliflozin 10 mg tablet mg 10/31/24 (Jardiance) famotidine 20 mg tablet mg 10/31/24 ferrous sulfate 325 mg (65 mg mg 10/31/24 iron) tablet (FeroSul) fexofenadine 60 mg capsule 60 mg PO Q12H 10/31/24 10/31/24 levothyroxine 88 mcg tablet mcg 10/31/24 magnesium 500 mg tablet 15 mg PO BID 10/31/24 10/31/24 omeprazole 40 mg capsule,delayed mg 10/31/24 release oxybutynin chloride 15 mg mg PO 10/31/24 tablet,extended release 24 hr pravastatin 40 mg tablet mg 10/31/24 sacubitril 49 mg-valsartan 51 mg 1 tab PO BID 10/31/24 10/31/24 tablet (Entresto) Allergies Allergy/AdvReac Type Severity Reaction Status Date / Time No Known Drug Allergies Allergy Verified 10/31/24 12:27 Review of Systems ROS Narrative A ten point review of systems is negative except as noted above. PFSH PFSH Social History Smoking status: Never smoker Little interest or pleasure in doing things: not at all Feeling down, depressed, or hopeless: not at all Exam Narrative Exam Narrative: Nurses note and vital signs reviewed and patient is not hypoxic. General: The patient appears well and in no apparent distress. Patient is resting comfortably on cart. Skin: Warm, dry, no pallor noted. There is no rash noted. Head: Normocephalic, atraumatic Eye: Normal conjunctiva, no drainage, EOMI. PERRL Ears, Nose, Mouth, and Throat: oral mucosa is moist. Nares patent. Cardiovascular: Regular Rate and Rhythm Respiratory: Patient is in no distress, no accessory muscle use, lungs are clear to auscultation, no wheezing, rales or rhonchi Back: non-tender, including her cervical spine GI: Soft and nontender Musculoskeletal: The patient has no evidence of calf tenderness, no pitting edema, symmetrical pulses noted bilaterally Neurological: A&O x4, normal speech; upper and lower extremity strength 5 out of 5 and symmetric. Extraocular movements are intact Psychiatric: Cooperative Constitutional Vital Signs, click to edit/add: Last Vital Signs Temp 97.7 F 10/31/24 12:32 Pulse 88 10/31/24 12:32 Resp 16 10/31/24 12:32 BP 148/77 H 10/31/24 12:32 Pulse Ox 98 10/31/24 12:32 O2 Del Method Room Air 10/31/24 12:32 Course Vital Signs Vital signs: Vital Signs Temperature 97.7 F 10/31/24 12:32 Pulse Rate 88 10/31/24 12:32 Respiratory Rate 16 10/31/24 12:32 Blood Pressure 148/77 H 10/31/24 12:32 Pulse Oximetry 98 10/31/24 12:32 Oxygen Delivery Method Room Air 10/31/24 12:32 Temperature 97.7 F 10/31/24 12:32 Pulse Rate 88 10/31/24 12:32 Respiratory Rate 16 10/31/24 12:32 Blood Pressure 148/77 H 10/31/24 12:32 Pulse Oximetry 98 10/31/24 12:32 Oxygen Delivery Method Room Air 10/31/24 12:32 Medical Decision Making MDM Narrative Medical decision making narrative: CAT scan is negative. 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 She has no symptoms now. Treatment diagnosis and follow-up were discussed with the patient and her . Differential Diagnosis Differential Diagnosis: Head contusion, intracranial hemorrhage Lab Data Lab results reviewed: Yes I reviewed the patient's lab results Labs: Lab Results 10/31/24 Range/Units 12:55 POC Glucose 113 H (74-106) mg/dL Imaging Data CT scan - head: Radiologist's impression: ITS Impressions Head CT 10/31/24 12:50 IMPRESSION: No acute findings. Impression dictated by: Cosme Villa M.D. 10/31/2024 1:09 PM Dictation Location: [place] [address] Electronically authenticated by: [id number] Y Date: 10/31/2024 13:09 Discharge Plan Discharge Chief Complaint: Fall Clinical Impression: Blurred vision, Head injury Patient Disposition: Home, Self-Care Time of Disposition Decision: 13:21 Condition: Good Mode of Transportation: Private Vehicle Prescriptions / Home Meds: No Action oxybutynin chloride 15 mg tablet extended release 24hr PO pravastatin 40 mg tablet omeprazole 40 mg capsule,delayed release(DR/EC) carvedilol 3.125 mg tablet levothyroxine 88 mcg tablet ferrous sulfate [FeroSul] 325 mg (65 mg iron) tablet Jardiance 10 mg tablet aspirin [Adult Low Dose Aspirin] 81 mg tablet,delayed release (DR/EC) 81 mg PO DAILY famotidine 20 mg tablet magnesium 500 mg tablet 15 mg PO BID cinnamon bark [Cinnamon] 500 mg capsule 500 mg PO DAILY fexofenadine 60 mg capsule 60 mg PO Q12H sacubitril-valsartan [Entresto] 49-51 mg tablet 1 tab PO BID Print Language: Slovenian Instructions: Head Injury (ED), Blurred Vision (ED) Referrals: HONG SCHILLING [Primary Care Provider, Family Practice] - 1 week
== END 2024-10-31 14:22 | disposition home or self-care (01) ==
PROVIDERS: Emergency Provider Emergency Medicine; PCP Family Medicine
DX: H53.8 Other visual disturbances (principal); S09.90XA Unspecified injury of head, initial encounter; W19.XXXA Unspecified fall, initial encounter
CPT/HCPCS: 36415; 70450; 82948; 99284

== ENCOUNTER 2024-12-17 10:28 | Outpatient (OUT) | payer MEDICARE, OTHER, SELFPAY ==
--- OUTSIDE RECORDS SUMMARY | 2024-12-16 16:15 | XMS_ITS | Encounter Summary ---
Author Organization [facility] Address [address] [place] [address] Care Team Providers Care Publisher Assistant Name Role Phone Oz Savage MD Primary Care Provider [phone] Oz Savage MD Unavailable Reason for Referral * Other Medical (Routine) - AuthorizedSpecialtyDiagnoses / ProceduresReferred By ContactReferred To ContactNeurology Diagnoses Arm weakness Numbness Arm pain, right Arm pain, left Procedures EMG AND NERVE CONDUCTION STUDY Dakota Forman MD [address] [place] [address] Phone: tel: fax: Dakota Forman MD [address] [place] [address] Phone: tel: fax: Referral IDStatusReasonStart DateExpiration DateVisits RequestedVisits [id number] Perform Procedure Reason for Visit * ReasonCommentsWeakness, Gen * Consultation (Routine) - ClosedSpecialtyDiagnoses / ProceduresReferred By ContactReferred To ContactNeurology Diagnoses Full incontinence of feces Procedures MD OFFICE/OUTPATIENT NEW HIGH MDM 60 MINUTES Oz Savage MD [address] [facility] 110 [place] [address] Phone: tel: fax: Dakota Forman MD [address] [place] [address] Phone: tel: fax: Referral IDStatusReasonStart DateExpiration DateVisits RequestedVisits [id number] Specialty Services Required / Encounter Details DateTypeDepartmentCare Team (Latest Contact Info)Bdkhzdqqfgy54/04/2025 4:15 PM ESTOffice Visit [facility] [address] [facility] [address] [place] [address] Dakota Forman MD [address] [place] [address] [phone] Neurogenic pain (Primary Dx); Carpal tunnel syndrome, bilateral; Polyneuropathy; Arm weakness; Numbness; Arm pain, right; Arm pain, left Social History Tobacco UseTypesPacks/DayYears UsedDateSmoking Tobacco: NeverSmokeless Tobacco: NeverAlcohol UseStandard Drinks/WeekCommentsNever0 (1 standard drink = 0.6 oz pure alcohol)Caffeine Intake: 1-2 cups per day coffee, soda/popPHQ-2AnswerDate RecordedPatient Health Questionnaire-2 Woynq774CommentsUnknown Sex and Gender InformationValueDate RecordedSex Assigned at BirthNot on file Legal SzkQdocju00/15/2023 7:15 PM EDTGender IdentityNot on fileSexual OrientationNot on fileOccupationIndustryJob Start DateJob End DateNot on fileNot on fileNot on fileNot on filedocumented as of this encounter Last Filed Vital Signs Vital SignReadingTime TakenCommentsBlood Hqupducf501/7612/16/2024 4:34 PM EST Vzwbd6898 4:34 PM ESTTemperature--Respiratory Rate--Oxygen Saturation-- Inhaled Oxygen Concentration--Lhlwmn07.1 kg (159 lb)12/16/2024 4:34 PM ESTHeight 162.6 cm (5' 4 )12/16/2024 4:34 PM ESTBody Mass Index27.29102/16/2024 4:34 PM EST documented in this encounter Progress Notes * Dakota Forman MD - 12/16/2024 4:15 PM ESTAssociated Problem(s): Neurogenic pain Add GBP 300 hs. * Dakota Forman MD - 12/16/2024 4:15 PM ESTAssociated Problem(s): Carpal tunnel syndrome, bilateral --- most likely. ENMG BUE. Resume splint use nocturnally. Handout. * Dakota Forman MD - 12/16/2024 4:15 PM ESTAssociated Problem(s): Polyneuropathy Neurop panel minus A1c. documented in this encounter Plan of Treatment DateTypeDepartmentCare Team (Latest Contact Info)Qfqonduwroa61/07/2025 11:15 AM ESTProcedure Visit [facility] [place] [facility] [address] [place] [address] [place] [address] Dakota Forman MD 5627 [facility] [address] [address] 01/05/2025 1:15 PM ESTOffice Visit [facility] 703 [facility] 150 [place] [address] Sandoval Robbins, DO 703 [facility] 150 [place] [address] 01/28/2025 2:15 PM ESTProcedure Visit [facility] [address] [place] [address] Ariel Lopez, DPM 1900 [facility] [place], [place] [address] 02/17/2025 2:45 PM ESTOffice Visit [facility] [place] [facility] [address] [facility] 310 [place] [address] Dakota Forman MD 3984 [facility] [address] [address] 04/01/2025 11:00 AM ESTOffice Visit [facility] [address] [facility] [address] [place] [address] NameTypePriorityAssociated DiagnosesOrder ScheduleEMG AND NERVE CONDUCTION STUDY NeurologyRoutine Arm weakness Numbness Arm pain, right Arm pain, left Expected: 12/17/2024 (Approximate), Expires: 12/17/2025documented as of this encounter Visit Diagnoses Diagnosis Neurogenic pain- Primary Carpal tunnel syndrome, bilateral Carpal tunnel syndrome Polyneuropathy Unspecified hereditary and idiopathic peripheral neuropathy Arm weakness Other musculoskeletal symptoms referable to limbs Numbness Disturbance of skin sensation Arm pain, right Pain in soft tissues of limb Arm pain, left Pain in soft tissues of limb documented in this encounter Care Teams Team MemberRelationshipSpecialtyStart DateEnd Date Oz Savage MD [address] [facility] [address] [place] [address] [facility] - [facility]22 Oz Savage MD [address] [facility] [address] [place] [address] PCP - ACO [facility]04/13/23documented as of this encounter
--- OUTSIDE RECORDS SUMMARY | 2024-12-17 10:51 | XMS_ITS | Encounter Summary ---
Author Organization [facility] Address [address] [place] [address] Care Team Providers Care Crinkling Machine Operator Name Role Phone Oz Savage MD Primary Care Provider [phone] Oz Savage MD Unavailable Encounter Details DateTypeDepartmentCare Team (Latest Contact Info)Vhvnpvablam49/04/2025Travel Social History Tobacco UseTypesPacks/DayYears UsedDateSmoking Tobacco: NeverSmokeless Tobacco: NeverAlcohol UseStandard Drinks/WeekCommentsNever0 (1 standard drink = 0.6 oz pure alcohol)Caffeine Intake: 1-2 cups per day coffee, soda/popPHQ-2AnswerDate RecordedPatient Health Questionnaire-2 Ishne357CommentsUnknown Sex and Gender InformationValueDate RecordedSex Assigned at BirthNot on file Legal QqjPrglbz63/15/2023 7:15 PM EDTGender IdentityNot on fileSexual OrientationNot on fileOccupationIndustryJob Start DateJob End DateNot on fileNot on fileNot on fileNot on filedocumented as of this encounter Plan of Treatment DateTypeDepartmentCare Team (Latest Contact Info)Lhhcbbzblkn02/07/2025 11:15 AM ESTProcedure Visit [facility] [place] [facility] [address] [phone] Dakota Forman MD 5319 [facility] 111 [place] [address] 01/05/2025 1:15 PM ESTOffice Visit [facility] 703 [facility] 150 [place] [phone] Sandoval Robbins DO 703 [facility] 150 [place] [address] 01/28/2025 2:15 PM ESTProcedure Visit [facility] [address] [place] [phone] Ariel Lopez, DPM [address] [place] [address] 02/17/2025 2:45 PM ESTOffice Visit [facility] [place] [facility] [address] [place] [address] [place] [address] Dakota Forman MD 5319 [facility] 111 [place] [address] 04/01/2025 11:00 AM ESTOffice Visit [facility] [place] [facility] [address] [place] [address] [place] [address] documented as of this encounter Visit Diagnoses Not on filedocumented in this encounter Care Teams Team MemberRelationshipSpecialtyStart DateEnd Date Oz Savage MD [address] [place] [address] [place] [address] PCP - GeneralFamily Medicine07/25/22 Oz Savage MD [address] [place] [address] [place] [address] PCP - ACO [facility]04/13/23documented as of this encounter
--- OUTSIDE RECORDS SUMMARY | 2024-12-17 10:51 | XMS_ITS | Clinical Summary ---
Author Organization [facility] Address [address] [place] [address] Phone Care Team Providers Care Customer Marketing Intern Name Role Phone Unavailable Primary Care Provider Unavailabl e Social History Tobacco UseTypesPacks/DayYears UsedDateSmoking Tobacco: Never Assessed CommentsUnknownSex and Gender InformationValueDate RecordedSex Assigned at Not on fileLegal VycPjdwbe14/26/2022 3:04 AM ESTGender IdentityNot on fileSexual OrientationNot on file Plan of Treatment Not on file
--- OUTSIDE RECORDS SUMMARY | 2024-12-17 10:51 | XMS_ITS | Clinical Summary ---
Author Organization [facility] Address [address] [facility], [address] [place] [address] Care Team Providers Care Foot Tender Name Role Phone Oz Savage MD Primary Care Provider [phone] Allergies No known active allergies Social History Tobacco UseTypesPacks/DayYears UsedDateSmoking Tobacco: Never Assessed CommentsUnknownSex and Gender InformationValueDate RecordedSex Assigned at Not on fileLegal UzdHixscz35/10/2013 3:32 PM ESTGender IdentityNot on fileSexual OrientationNot on file Plan of Treatment Not on file Care Teams Team MemberRelationshipSpecialtyStart DateEnd Date Oz Savage MD PCP - General02/24/13
--- OUTSIDE RECORDS SUMMARY | 2024-12-17 10:51 | XMS_ITS | Encounter Summary ---
Author Organization [facility] Address [address] [place] [address] Care Team Providers Care Personal Financial Representative Name Role Phone Oz Savage MD Primary Care Provider [phone] Oz Savage MD Unavailable Encounter Details DateTypeDepartmentCare Team (Latest Contact Info)Fpbpfammsne96/04/2025amboo flowsheet [facility] [address] [place] [address] Dakota Forman MD 4175 [facility] [address] [place] [address] [phone] Social History Tobacco UseTypesPacks/DayYears UsedDateSmoking Tobacco: NeverSmokeless Tobacco: NeverAlcohol UseStandard Drinks/WeekCommentsNever0 (1 standard drink = 0.6 oz pure alcohol)Caffeine Intake: 1-2 cups per day coffee, soda/popPHQ-2AnswerDate RecordedPatient Health Questionnaire-2 Efnmt483CommentsUnknown Sex and Gender InformationValueDate RecordedSex Assigned at BirthNot on file Legal XjpVuyren01/15/2023 7:15 PM EDTGender IdentityNot on fileSexual OrientationNot on fileOccupationIndustryJob Start DateJob End DateNot on fileNot on fileNot on fileNot on filedocumented as of this encounter Plan of Treatment DateTypeDepartmentCare Team (Latest Contact Info)Xfocmmdkaty07/07/2025 11:15 AM ESTProcedure Visit [facility] [place] [facility] [address] [place] [address] [place] [address] Dakota Forman MD 1134 [facility] [address] [phone] 01/05/2025 1:15 PM ESTOffice Visit [facility] 703 [facility] 150 [place] [address] Sandoval Robbins DO 703 [facility] 150 [place] [address] 01/28/2025 2:15 PM ESTProcedure Visit [facility] [address] [place] [address] Ariel Lopez, DPM [address] [place] [address] 02/17/2025 2:45 PM ESTOffice Visit [facility] [place] [facility] [address] [place] [address] [place] [address] Dakota Forman MD 1418 [facility] [address] [place] [address] [address] 04/01/2025 11:00 AM ESTOffice Visit [facility] [place] [facility] [address] [place] [address] [place] [address] documented as of this encounter Visit Diagnoses Not on filedocumented in this encounter Care Teams Team MemberRelationshipSpecialtyStart DateEnd Date Oz Savage MD [address] [facility] 110 [place] [address] PCP - GeneralFamily Medicine07/25/22 Oz Savage MD 112 [facility] 110 [place] [address] PCP - ACO [facility]04/13/23documented as of this encounter
--- OUTSIDE RECORDS SUMMARY | 2024-12-17 10:51 | XMS_ITS | Encounter Summary ---
Author Organization [facility] Address [address] [place] [address] Care Team Providers Care Fmd Teacher Name Role Phone Oz Schilling MD Primary Care Provider [phone] Oz Schilling MD Unavailable Litzy Montoya RN Unavailable [phone] Encounter Details DateTypeDepartmentCare Team (Latest Contact Info)Tbtltlmopev88/16/2024Clinisync Result Encounter [facility] External Department Unsolicited Provider, Generic External Data Social History Tobacco UseTypesPacks/DayYears UsedDateSmoking Tobacco: NeverSmokeless Tobacco: NeverAlcohol UseStandard Drinks/WeekCommentsNever0 (1 standard drink = 0.6 oz pure alcohol)Caffeine Intake: 1-2 cups per day coffee, soda/popPHQ-2AnswerDate RecordedPatient Health Questionnaire-2 Ynpin808CommentsUnknown Sex and Gender InformationValueDate RecordedSex Assigned at BirthNot on file Legal RyhFsudzz98/15/2023 7:15 PM EDTGender IdentityNot on fileSexual OrientationNot on fileOccupationIndustryJob Start DateJob End DateNot on fileNot on fileNot on fileNot on filedocumented as of this encounter Functional Status * Over the past 2 weeks, how often have you been bothered by any of the following problems?QuestionAnswerDate of AssessmentAuthorLittle interest or pleasure in doing thingsNot at all10/06/2024 3:01 PM Litzy Nichole MA Feeling down, depressed, or hopelessNot at all10/06/2024 3:01 PM Litzy Nichole MAPatient Health Questionnaire-2 Yrnbp096 3:01 PM Litzy Nichole MA documented as of this encounter Plan of Treatment DateTypeDepartmentCare Team (Latest Contact Info)Kvxmfvkbxfa16/07/2025 11:15 AM ESTProcedure Visit [facility] [place] [facility] [address] [facility] 310 [place] [address] Dakota Forman MD 5319 [facility] [address] [phone] 01/05/2025 1:15 PM ESTOffice Visit [facility] 703 [facility] 150 [place] [address] Sandoval Robbins, DO 703 [facility] 150 [place] [address] 01/28/2025 2:15 PM ESTProcedure Visit [facility] [address] [place] [address] Ariel Lopez, DPWilmar [address] [place] [address] 02/17/2025 2:45 PM ESTOffice Visit [facility] [place] [facility] [address] [facility] [address] [place] [address] Dakota Forman MD 5319 [facility] [address] [address] 04/01/2025 11:00 AM ESTOffice Visit [facility] 112 [facility] 130 [place] [address] documented as of this encounter Procedures Procedure NamePriorityDate/TimeAssociated DiagnosisCommentsCT CHEST WO CON 03/30/2023 4:00 PM EST documented in this encounter Results * CT CHEST WO CON (03/30/2023 4:00 PM EST)Anatomical RegionLateralityModality OtherSpecimen (Source)Anatomical Location / LateralityCollection Method / VolumeCollection TimeReceived Time03/30/2023 4:00 PM EST Narrative 03/30/2023 4:03 PM EST [facility] ?[address] ? [place] [address] ? CT Scan Report ? Signed ? Patient: HEMMINGER,LILLY L ?MR#: [id number] ?? : 1950 ?Acct:[id number] ?? Age/Sex: 73 / F ?ADM Date: 03/30/23 ?? Loc: CT ? Attending Dr: Jd Youngblood D.O. ? Ordering Physician: Jd Youngblood D.O. ?? Date of Service: 03/30/23 ?? Procedure(s): CT chest wo con ?? Accession Number(s): [id number] ? cc: OZ SCHILLING ? [facility] ? [address] ? [place] [address] ? Patient Name: ?? LILLY HORNE ? [facility]: [facility]:[id number] ? date: 1950 ?Sex: F ?? Assigned Patient Location: CT ?? Current Patient Location: CT ?? Accession/Order Number: [id number] ?? Exam Date: 03/30/2023 ??15:26 ?Report Date: 03/30/2023 ??16:00 ? At the request of: ?? JD ??RYLIE ? Procedure: ??CT chest wo con ? EXAMINATION: CT chest wo con ? HISTORY: aspiration pneumonia due to to gastric secretions J89.0 ? COMPARISON: CT chest 12/14/2022 ? TECHNIQUE: Multi-planar CT images were obtained without and/or with IV ?? contrast ?? as indicated by examination type. Axial, Coronal, and Sagittal images. Dose ?? reduction techniques were achieved by using automated exposure control and/or ?? adjustment of mA and/or kV according to patient size and/or use of iterative ?? reconstruction technique. ? FINDINGS: ?? LUNGS: Small curvilinear opacity within posterior lateral left lung base ?? adjacent small amount of alveolar disease in area of prior pneumonia; residual ? infiltrates versus scarring. Lungs are otherwise clear. ?? PLEURA: No mass, effusion, or pneumothorax. ?? VASCULATURE: No abnormality. ?? LEATHA: Calcified lymph nodes compatible with chronic granulomatous disease. ?? MEDIASTINUM: Calcified lymph nodes. ?? CARDIAC: Marked atherosclerotic coronary artery disease. No enlargement or ?? pericardial effusion. ?? AORTA: No aneurysm or dissection. ?? CHEST WALL: No mass or axillary adenopathy. ?? BONES: No bone lesion or fracture. ?? LIMITED ABDOMEN: No suspicious findings Limited images of the upper abdomen. ?? OTHER: Negative. ? CT/CT chest wo con ?? IMPRESSION: ? 1. Complete clearing of previously seen pneumonia. Suspect trace amount ?? scarring within posterior left lung base. ?? 2. No lymphadenopathy. ? Electronically authenticated by: MIKE ??LOYD ?? Date: 03/30/2023 ??16:00 ? Dictated By: ?Mike Astudillo M.D. ? Signed By: ?03/30/23 1603 ? DD/ 1600 ? TD/TT: ? Job Forwarder: Procedure Note Radiology, Radiologist, MD - 03/30/[address] [place] [id number] Scan Report Signed Patient: LILLY HORNE LMR#: [id number] : 1950Acct:[id number] Age/Sex: 73 / FADM Date: 03/30/23 Loc: CT Attending Dr: Jd Youngblood D.O. Ordering Physician: Jd Youngblood D.O. Date of Service: 03/30/23 Procedure(s): CT chest wo con Accession Number(s): [id number] cc: OZ SCHILLING The [address] [address] Patient Name: LILLY HORNE MRN: [facility]:[id number] date: 1950 Sex: F Assigned Patient Location: CT Current Patient Location: CT Accession/Order Number: [id number] Exam Date: 03/30/2023 15:26 Report Date: 03/30/2023 [...] Dictated By: Mike Astudillo M.D. Signed By:03/30/23 1603 DD/ 1600 TD/TT: Job Forwarder: Authorizing ProviderResult TypeResult StatusGeneric External Data Provider CLINIS[facility]NC IMAGINGFinal Result documented in this encounter Visit Diagnoses Not on filedocumented in this encounter Care Teams Team MemberRelationshipSpecialtyStart DateEnd Date Oz Schilling MD [address] [facility] 110 [place] [address] PCP - GeneralFamily Medicine07/25/22 Oz Schilling MD [address] [facility] 110 [place] [address] PCP - ACO [facility]04/13/23 Litzy Montoya, MELQUIADES [address] [place] [address] Registered NurseFamily [facility] Glenbeighdocumented as of this encounter
--- OUTSIDE RECORDS SUMMARY | 2024-12-17 10:51 | XMS_ITS | Encounter Summary ---
Author Organization [facility] Address [address] [place] [address] Care Team Providers Care Telemarketing Agent Name Role Phone Oz Savage MD Primary Care Provider [phone] Oz Savage MD Unavailable Encounter Details DateTypeDepartmentCare Team (Latest Contact Info)Fiheyutpxpa48/31/2025Travel Social History Tobacco UseTypesPacks/DayYears UsedDateSmoking Tobacco: NeverSmokeless Tobacco: NeverAlcohol UseStandard Drinks/WeekCommentsNever0 (1 standard drink = 0.6 oz pure alcohol)Caffeine Intake: 1-2 cups per day coffee, soda/popPHQ-2AnswerDate RecordedPatient Health Questionnaire-2 [id number] Sex and Gender InformationValueDate RecordedSex Assigned at BirthNot on file Legal EpdEqqzuw89/15/2023 7:15 PM EDTGender IdentityNot on fileSexual OrientationNot on fileOccupationIndustryJob Start DateJob End DateNot on fileNot on fileNot on fileNot on filedocumented as of this encounter Plan of Treatment DateTypeDepartmentCare Team (Latest Contact Info)Eqhjscsijsa09/07/2025 11:15 AM ESTProcedure Visit [facility] [address] [phone] Dakota Forman MD [address] [facility] [address] [place] [address] 01/05/2025 1:15 PM ESTOffice Visit [facility] [address] [facility] [address] [place] [phone] Sandoval Robbins DO [address] [facility] [address] [place] [address] 01/28/2025 2:15 PM ESTProcedure Visit [facility] [address] [place] [phone] Ariel Lopez, DPM [address] [place] [address] 02/17/2025 2:45 PM ESTOffice Visit [facility] [place] [facility] [address] [place] [address] Dakota Forman MD [address] [facility] [address] [place] [address] 04/01/2025 11:00 AM ESTOffice Visit [facility] [place] [facility] [address] [place] [phone] documented as of this encounter Visit Diagnoses Not on filedocumented in this encounter Care Teams Team MemberRelationshipSpecialtyStart DateEnd Date Oz Savage MD [address] [place] [address] PCP - GeneralFamily Medicine07/25/22 Oz Savage MD [address] [place] [address] PCP - ACO Reach04/13/23documented as of this encounter
--- OUTSIDE RECORDS SUMMARY | 2024-12-17 10:51 | XMS_ITS | Clinical Summary ---
Author Organization [facility] Address [address] [place] [address] Care Team Providers Care Ship Rigger Name Role Phone Oz Savage MD Primary Care Provider [phone] Oz Savage MD Unavailable Allergies No known active allergies Medications MedicationSigDispense QuantityRefillsLast FilledStart DateEnd DateStatus magnesium 250 MG tablet every 12 (twelve) hoursActive cinnamon 500 MG capsule Take 500 mg by mouth DailyActive fexofenadine-pseudoephedrine ER (Ritika-D) 60-120 MG 12 hr tablet Take 1 tablet by mouth in the morning and 1 tablet in the evening.Active sacubitril-valsartan (Entresto) 49-51 MG tablet every 12 (twelve) hoursActive Multiple Vitamins-Minerals (Thera-M) tablet Take 1 tablet by mouth in the morning.Active fluticasone (Flonase) 50 MCG/ACT nasal spray Indications:Seasonal allergic rhinitis due to pollenAdminister 1-2 sprays into each nostril Daily Shake gently. Before first use, prime pump. After use, clean tip and replace cap. 16 g ctive ASPIRIN 81 PO Take by mouthActive ferrous sulfate 325 (65 Fe) MG tablet Indications:Anemia, unspecified typeTake 1 tablet (325 mg) by mouth every 8 (eight) hours 270 tablet ctive ammonium lactate (Amlactin) 12 % cream Indications:Corns and callositiesApply topically Daily 140 g 415Active Jardiance 10 MG Indications:Type 2 diabetes mellitus with peripheral vascular disease (HCC)TAKE 1 TABLET EVERY DAY 90 tablet 5Active famotidine (Pepcid) 20 MG tablet Indications:LPRD (laryngopharyngeal reflux disease)TAKE 1 TABLET AT BEDTIME 100 tablet 5Active omeprazole (PriLOSEC) [address] capsule Indications:Gastroesophageal reflux disease with esophagitis, unspecified whether hemorrhageTAKE 1 CAPSULE EVERY DAY (NEED APPOINTMENT) 100 capsule 5Active levothyroxine (Synthroid, Levoxyl) 88 MCG tablet Indications:Acquired hypothyroidismTAKE 1 TABLET EVERY MORNING 90 tablet 5Active carvedilol (Coreg) 3.125 MG tablet Indications: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 disorderTAKE 1 TABLET IN THE MORNING AND TAKE 1 TABLET BEFORE BEDTIME 180 tablet 5Active pravastatin (Pravachol) 40 MG tablet Indications:HypercholesterolemiaTAKE 1 TABLET EVERY DAY 90 tablet 5Active oxybutynin XL (Ditropan-XL) 15 MG 24 hr tablet Indications:OAB (overactive bladder)TAKE 1 TABLET EVERY MORNING 90 tablet 5Active Active Problems ProblemNoted DateDiagnosed DateNeurogenic pain12/16/2024 Assessment & Plan (12/16/2024 5:00 PM EST): Add GBP 300 hs. Carpal tunnel syndrome, bbxiiahfq74/04/2025 Assessment & Plan (12/16/2024 5:00 PM EST): --- most likely. [facility] BUE. Resume splint use nocturnally. Handout. Swelling of index scwmto0610/06/2024 Assessment & Plan (10/06/2024 3:15 PM EDT): Still with swelling Finished atibiotics Full incontinence of feces10/06/2024 Assessment & Plan (10/06/2024 3:21 PM EDT): No sensation of sensing a BM Had previous episodes as a child had constipation and had release of sphincter muscle surgery Try Imodium Infection of index uluvpu8009/23/2024 Assessment & Plan (10/06/2024 3:17 PM EDT): [...] Type 2 diabetes mellitus with foot ulcer (CODE)07/21/2024 Assessment & Plan (07/21/2024 10:58 AM EDT): Sees Podiatry Recommend Diabetic shoes Paperwork completed and agree with podiatry assessment Non-pressure chronic ulcer of other part of left foot with fat layer exposed 07/21/2024 Assessment & Plan (07/21/2024 10:58 AM EDT): Recommend Diabetic shoes Pulmonary hypertension, zddzjgmelaa65/09/2025 Assessment & Plan (07/21/2024 10:56 AM EDT): Found on Echo Pulmonary pressures are 42 mmHg Type 2 diabetes mellitus with diabetic chronic kidney hyoxmkl9007/21/2024 Assessment & Plan (07/21/2024 10:59 AM EDT): No Tobacco use Follow ADA 1800 diet low carbohydrate Continue Med Compliance Goal LDL less than 100Goal BP 130/80 Goal HgbA1c < 7.0% Monitor Feet, monitor for infection Needs Exercise Yearly eye exams Prior to your visit today we reviewed your chart and outlined testing and treatment needed foryour care. Reviewed poissble complications of diabetes including, loss of vision, kidney failure and increased risk of heart attacks and stroke. We made recommendations on how to control your blood sugars, and minimize your risk of these complications. We discussed your current barriers to a healthy living and importance of healthy diet and exercise. A1c is 5.6 Chronic kidney disease, stage 3a07/21/2024 Assessment & Plan (09/23/2024 1:50 PM EDT): Avoid NSAIDs such as Ibuprofen, Motrin, Naprosyn. Increase fluids. Assessment & Plan (07/21/2024 10:58 AM EDT): Avoid NSAIDs such as Ibuprofen, Motrin, Naprosyn. Increase fluids. Malignant neoplasm of submandibular gland07/21/2024 Assessment & Plan (07/21/2024 11:00 AM EDT): F/up with ENT as needed Benign essential qzdllnyufnep31/04/2024 Assessment & Plan (07/17/2023 10:34 AM EDT): Our specific goals, for your hypertension, is to keep your blood pressure less than 140/90, and theimportance of weight control. We made recommendations on [...] diet handouts Numbness and tingling of both legs05/07/2023Spinal stenosis of lumbar region with neurogenic yvpvoxlbiibk73/25/2024bnormal ECG04/02/2023Hx of CABG04/02/2023 Personal history of breast nrrpgc9611/22/2022Medicare annual wellness visit, tzocfjnzrc22/26/2023 Assessment & Plan (07/21/2024 10:59 AM EDT): Colonoscopy every 10 years or Cologuard every 3 years ages 50-75 Flu Vaccine yearly Pneumovax and Prevnar Mammo yearly for women and PSA yearly for men Labs/Screening yearly to rule out Diabetes, Chronic Kidney disease and liver disease Hepatitis Screen forat risk populations Shingles vaccine after65 if indicated Tetanus Vaccine every 10 years [...] Hepatitis Screen forat risk populations Shingles vaccine after65 if indicated Tetanus Vaccine every 10 years Lipids yearly under the age of 75 If Smoking history: one time CT scan of chest and Ultrasound of Aorta to screen for Anuerysm Abnormal bczdpensg43/24/2023Unspecified systolic (congestive) heart failure 09/04/2022 Assessment & Plan (07/21/2024 10:55 AM EDT): Stable for now no acute exacerbations Calculus of gallbladder without cholecystitis without pgnijaurino26/24/2023 Chronic diastolic (congestive) heart krwbgrw8109/04/2022 Assessment & Plan (07/21/2024 10:57 AM EDT): Stable Elevated liver wfbhprf1509/04/2022cquired hammer toe of left foot09/04/2022 Acquired hammer toe of right foot09/04/2022Hammer toe09/04/2022History of COVID-19009/04/2022Hypertensive heart disease with heart clikkmz6209/04/2022 Assessment & Plan (07/21/2024 10:57 AM EDT): BP is controlled 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 pmzzxw5409/04/2022Mild episode of recurrent major depressive gvkducsn23/24/2023Mild nonproliferative diabetic retinopathy associated with type 2 diabetes govlrymk53/24/2023 Polyneuropathy due to type 2 diabetes /24/2023rimary osteoarthritis, right hand09/04/2022Other vuhfynmwfuyvzlmy47/24/2023 Assessment & Plan (07/21/2024 10:56 AM EDT): Stable continue current medicines 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 Reviewed poissble complications of diabetes including, loss of vision, kidney failure and increased risk of heart attacks and stroke. We made recommendations on how to control your blood sugars, and minimize your risk of these complications. We discussed your current barriers to a healthy living and importance of healthy diet and exercise. Vascular dementia, unspecified severity, without behavioral disturbance, psychotic disturbance, mood disturbance, and kozchqa6509/04/2022 Assessment & Plan (07/21/2024 10:55 AM EDT): Stable overall, continue mental exercises such as word searches, Sodoku and Crosswords COVID-19 virus ivditysr50/12/1207Gewmyquwxbdhtndu30/11/2021Loss of taste 11/18/2020denoid cystic tahsbqlnz38/05/2021bnormal ultrasound of breast 10/12/2020Nonproliferative diabetic retinopathy of left eye01/01/2020 Sensorineural hearing loss, unilateral, right ear, with unrestricted hearing on the contralateral side09/15/2019Asymmetrical sensorineural hearing loss 08/13/2019Conductive hearing loss, fdyzywete01/10/2020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 ipeansvj59/10/2020Retained orthopedic hardware 03/04/2019Reduced ejection fraction concurrent with and due to chronic heart qdeyssy6811/21/2018Peripheral angiopathy due to type 2 diabetes qjrlxuzn97/06/2019 Diabetic autonomic neuropathy associated with type 2 diabetes qxbtzsbu51/11/2019 Diabetic retinopathy associated with type 2 diabetes etzzulhl95/09/2019Long term current use of anticoagulant arczpnu3304/11/2018Anger /28/2018Seasonal allergic rhinitis due to sdccir5706/05/2017LPRD (laryngopharyngeal reflux disease) 12/27/20168746Lvufbdsvzzuarnunjdza73/17/2017 Assessment & Plan (07/21/2024 11:00 AM EDT): This is a chronic medical condition that is stable since last assessment. No changes in treatment are suggested at this time. Continue Current meds. Paralyzed vocal cords11/28/2016RLS (restless legs syndrome)11/28/2016Diastolic dysfunction with acute on chronic heart dkprzki5602/17/2016Tension headache 02/17/2016Moderate nonproliferative diabetic retinopathy without macular edema associated with type 2 diabetes jkqsaemd28/06/2016Diabetic peripheral neuropathy associated with type 2 diabetes uemlesik72/11/9004Baxcwfdy23/21/2016 Mvrtfrkvoplbzo18/21/2016 Assessment & Plan (12/16/2024 5:00 PM EST): Neurop panel minus A1c. Diabetic renal xzcogme4007/01/2015 Assessment & Plan (01/15/2023 2:03 PM EST): No Tobacco use Follow ADA 1800 diet low carbohydrate Continue Med Compliance Goal LDL less than 100Goal BP 130/80 Goal HgbA1c < 7.0% Monitor Feet, monitor for infection Needs Exercise Yearly eye exams Prior to your visit today we reviewed your chart and outlined testing and treatment needed foryour care. Reviewed poissble complications of diabetes including, loss of vision, kidney failure and increased risk of heart attacks and stroke. We made recommendations on how to control your blood sugars, and minimize your risk of these complications. We discussed your current barriers to a healthy living and importance of healthy diet and exercise. Hiatal hjwhde7206/28/20151347Noehdknxitun98/18/2016Acquired qgwudffakeerry72/08/2015 Assessment & Plan (07/21/2024 10:59 AM EDT): Check labs Allergic oybrwgic44/08/9901Xjlzf84/08/2015History of stroke without residual nkpwkdod68/20/2015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 /20/2015Disorder of lipid uqdxlzylie05/12/2014Other forms of chronic ischemic heart disease 09/23/2013 Overview (09/04/2022): EF 33% BY STRESS (02/25) Abnormal results of cardiovascular function uckhvrg3003/10/2013 Overview (09/04/2022): ANTERIOR INFARCT; FRANCIS-INFARCT ISCHEMIA Ischemic heart rjavjqx2603/10/2013 Overview (09/04/2022): EF 33% BY STRESS (02/25) Chronic systolic (congestive) heart amvatzz4103/12/2012 Assessment & Plan (07/21/2024 10:57 AM EDT): Continue current meds Assessment & Plan (01/15/2023 2:08 PM EST): Reviewed Echo and reduced EF On Entresto Qygbunfqudpvlc30/29/2013 Assessment & Plan (07/21/2024 11:00 AM EDT): This is a chronic medical condition that is stable since last assessment. No changes in treatment are suggested at this time. Continue Current meds. Mitral valve /29/2013Type 2 diabetes /29/2013 Encounters DateTypeDepartmentCare KevaRvaqmynyfjt47/04/2025 4:15 PM ESTOffice Visit [facility] [place] [facility] [address] [facility] [address] [place] [phone] Dakota Forman MD Neurogenic pain (Primary Dx); Carpal tunnel syndrome, bilateral; Polyneuropathy; Arm weakness; Numbness; Arm pain, right; Arm pain, left12/16/2024amboo flowsheet [facility] [address] [place] [address] Dakota Forman MD 12/16/20245828Ueolez59/31/5462Klhgyv00/24/2025bstract [facility] [address] [place] [phone] Oz Savage MD 11/03/2024Patient Outreach [facility] [address] [place] [phone] Lizet Leiva LSW 10/22/2024 1:15 PM EDTProcedure Visit [facility] [address] [place] [address] Ariel Lopez DPM Onychodystrophy (Primary Dx); Onychomycosis; Type II or unspecified type diabetes mellitus with neurological manifestations, not stated as uncontrolled(250.60) ([facility])10/22/2024amboo flowsheet [facility] [address] [place] [address] Ariel Lopez DPM 10/22/20241417Tttled60/09/8309Oupkis60/25/2025 3:00 PM EDTOffice Visit [facility] [address] [place] [phone] Oz Savage MD Infection of index finger (Primary Dx); Swelling of index finger; Full incontinence of feces10/06/2024amboo flowsheet [facility] [address] [place] [address] Oz Savage MD 10/06/20245651Kolzyt38/20/2025 10:30 AM EDTOffice Visit [facility] [address] [place] [address] Asymmetrical sensorineural hearing loss (Primary Dx)09/23/2024 1:30 PM EDTOffice Visit [facility] [address] [place] [phone] Oz Savage MD Infection of index finger (Primary Dx); Chronic kidney disease, stage 3a ([facility])09/23/2024amboo flowsheet [facility] [address] [place] [phone] Oz Savage MD 09/23/20243775Xmlgyz07/07/2025Telephone [facility] [place] [facility] [address] [facility] [place] [address] Saima Stanford MA 09/17/2024 10:00 AM EDTOffice Visit [facility] [address] [place] [address] Asymmetrical sensorineural hearing loss (Primary Dx)from Last 3 Months Immunizations ImmunizationAdministration DatesNext DuePneumococcal Conjugate PCV 13102/26/2017 Td (adult), 5 Lf tetanus toxoid, preservative free, xmamahgu38/23/2009Tdap 08/30/2017Zoster, live08/20/2018 Family History Medical HistoryRelationNameCommentsHypertensionFatherMy dad ?CancerMaternal GrandfatherDiabetesPaternal GrandmotherHeart diseaseSiblingBreast cancerNeg Hx Colon cancerNeg HxOvarian cancerNeg HxUterine cancerNeg HxRelationNameStatus TezuqjemRglobwl5LptglfPn dad ?DeceasedMaternal GrandfatherAliveMotherDeceased Paternal GrandmotherDeceasedSiblingSister2 Social History Tobacco UseTypesPacks/DayYears UsedDateSmoking Tobacco: NeverSmokeless Tobacco: Never Tobacco Cessation:Counseling Given: Yes Alcohol UseStandard Drinks/WeekCommentsNever0 (1 standard drink = 0.6 oz pure alcohol)Caffeine Intake: 1-2 cups per day coffee, soda/popPHQ-2AnswerDate RecordedPatient Health Questionnaire-2 Zmttt980CommentsUnknown Sex and Gender InformationValueDate RecordedSex Assigned at BirthNot on file Legal TgeAbygrs87/15/2023 7:15 PM EDTGender IdentityNot on fileSexual OrientationNot on fileOccupationIndustryJob Start DateJob End DateNot on fileNot on fileNot on fileNot on file Last Filed Vital Signs Vital SignReadingTime TakenCommentsBlood Qvocaycu307/7611 4:34 PM EST Ndjof4438 4:34 PM ESTTemperature--Respiratory Mnoo9243 1:39 PM EDTOxygen Pznjlkeiip08%10/06/2024 3:05 PM EDTInhaled Oxygen Concentration-- Xuytxv06.1 kg (159 lb)12/16/2024 4:34 PM GZCNulbqi533.6 cm (5' 4 )12/16/2024 4:34 PM ESTBody Mass Index27.29102/16/2024 4:34 PM EST Plan of Treatment DateTypeDepartmentCare Team (Latest Contact Info)Qxdjauddclj14/07/2025 11:15 AM ESTProcedure Visit [facility] [place] [facility] [address] [facility] [address] [place] [address] Dakota Forman MD [address] [facility] [address] [phone] 01/05/2025 1:15 PM ESTOffice Visit [facility] [address] [facility] [address] [place] [address] Sandoval Robbins, DO [address] [facility] [address] [place] [address] 01/28/2025 2:15 PM ESTProcedure Visit [facility] [address] [place] [phone] Ariel Lopez, DPM [address] [place] [address] 02/17/2025 2:45 PM ESTOffice Visit [facility] [place] [facility] [address] [facility] [address] [place] [address] Dakota Forman MD [address] [facility] [address] [id number] 04/01/2025 11:00 AM ESTOffice Visit [facility] [address] [facility] [address] [place] [address] [facility] DateLast DoneCommentsCT Ccintngmfvui36/07/1950FIT-DNA 1950FIT1950FOBT1950 2936Xmtpcnxwggias82/07/1950Pneumococcal Vaccine: 65+ Years (2 of 2 - PPSV23, PCV20, or PCV21) Diabetes: Urine Protein Uyhgpshgn05/OVID-19 Vaccine ( - season)2024Influenza Vaccine (#1)2024Diabetes: Hemoglobin A1C /10/2024, 07/17/2023, 01/15/2023, Additional history existsMedicare Annual Wellness (AWV)606/10/2024, 07/17/2023, 2Diabetes: Retinopathy Lcbdevwjv99/, 03/10/2024, 03/05/2023, Additional history gadwygJibdrbzprgh16/01/203311/02/2022, 03/25/2012, 03/25/2012Colorectal Cancer Vgfxckqyj46/01/3027TzvjadxodGmpjfnbmrykc68/14/2024, 11/26/2023, 11/21/2022, Additional history exists Procedures Procedure NamePriorityDate/TimeAssociated DiagnosisCommentsDIABETIC RETINOPATHY SCREENING - OU - BOTH LGDUAlxlnmx86/24/2025 10:00 AM EDT POCT GLYCATED HEMOGLOBIN, WRQRWYoyuigr22/09/2025 10:59 AM EDT Type 2 diabetes mellitus with peripheral vascular disease (HCC) BI MAMMOGRAM DIAGNOSTIC TOMOSYNTHESIS AEEINSFBKDxvgojf91/14/2024 10:52 AM EDT Personal history of breast cancer MICROALBUMIN / CREATININE URINE JKKURPhopvac93/10/2024 10:35 AM EDT Medicare annual wellness visit, subsequent Type 2 diabetes mellitus with peripheral vascular disease (HCC) COLONOSCOPY XRAELHBQLDWshojwu31/01/2023 from Last 3 Months or Most Recently Relevant to Health Maintenance Results * (ABNORMAL) Diabetic Retinopathy Screening - OU - Both Eyes (11/05/2024 10:00 AM EDT)ComponentValueRef RangeTest MethodAnalysis TimePerformed AtPathologist SignatureRESULTSmdrAnatomical RegionLateralityModalityHeadOther Narrative Authorizing ProviderResult TypeResult StatusOz Savage MDOPHTH PHOTOGRAPHY Final Result * POCT Glycated hemoglobin, total (07/21/2024 10:59 AM EDT)ComponentValueRef RangeTest MethodAnalysis TimePerformed AtPathologist SignatureHemoglobin A1C 5.6Specimen (Source)Anatomical Location / LateralityCollection Method / Volume Collection TimeReceived FoucUdidt14/09/2025 10:59 AM EDT Narrative Authorizing ProviderResult TypeResult StatusOz Savage MDPOINT OF CARE TEST ENTER/EDIT ORDERABLESFinal Result * Bilateral diagnostic mammogram with tomosynthesis (11/26/2023 10:52 AM EDT) Anatomical RegionLateralityModalityBreastBilateralMammographySpecimen (Source) Anatomical Location / LateralityCollection Method / VolumeCollection Time Received Time11/26/2023 10:52 AM EDT Impressions 11/26/2023 1:03 PM EDT NO MAMMOGRAPHIC EVIDENCE OF MALIGNANCY. ? ROUTINE FOLLOW-UP IS RECOMMENDED IN ONE YEAR. ? RESULT CODE: 2 ? Benign Findings(s) ?? DENSITY CODE: 2 (approximately 25-50% glandular) ?? FOLLOW UP: 1YR ? The false-negative rate of mammography is approximately 10-percent. ? Management of a palpable abnormality must be based on clinical grounds. ?? Patient was entered into a reminder system with a target due date for the next mammogram. ? Impression dictated by: Vanessa Alva M.D.11/26/2023 1:01 PM ? Dictation Location: [facility] ? Transcribed By: ? PWS ?11/25/ 1301 ? Dictated By: ?Vanessa Alva, ?11/26/23 1052 ? Signed By: <Electronically signed by Vanessa Emely RahmanArtie in [place]> ? 11/26/23 1301 Narrative 11/26/2023 1:03 PM EDT [facility] ?[facility] [place] ?[address] ? [place] [address] ? Mammography Report ? Signed ? Patient: Hemminger,Lilly L ?MR#: [id number] ?? [id number] ? : 1950 ?Acct:[id number] ? Age/Sex: 73 / F ?ADM Date: 11/26/23 ? Loc: [place] ?Room: ?Type: REG CLI ?? Attending Dr: Sandoval Robbins DO ?? Copies to: Sandoval Robbins DO ?? Oz Savage MD ? Ordering Provider: Sandoval Robbins DO ?? Date of Service: 11/26/23 ?? MM/MM diagnostic mammo BI w/CAD: Yrly mamms ? CLINICAL DATA: Prior right breast cancer. ? BILATERAL DIAGNOSTIC MAMMOGRAMS - FULL FIELD DIGITAL WITH TOMOSYNTHESIS AND CAD ? Tomosynthesis craniocaudal and mediolateral oblique views of both breasts were obtained using low- dose digital technique. ??Comparison is made to prior studies from November 13, 2017 through November 21, 2022. ??This examination was reviewed with the aid of CAD. ? There are scattered fibroglandular densities. There is postoperative scarring and BioZorb at the central right breast posteriorly. There are some benign and vascular calcifications. There are no developing masses, typically malignant calcifications or architectural distortion. ??There has been no significant interval change. ? MM/MM diagnostic mammo BI w/CAD ?? Procedure Note Radiology, Radiologist, MD - 11/26/2023 [facility] [place] [address] [place] [address] Mammography Report Signed Patient: Lilly Mckeon LMR#: [id number] : 1950Acct:[id number] Age/Sex: 73 / FADM Date: 11/26/23 Loc: [place] Room:Type: [facility] Attending Dr: Sandoval Robbins DO Copies to: [...] Vanessa Alva M.D.11/26/2023 1:01 PM Dictation Location: [facility] Transcribed By: [facility] 11/26/23 1301 Dictated By: Vanessa Alva MD 11/26/23 1052 Signed By: <Electronically signed by MD Vanessa Alva in OV> 11/26/23 1301 Authorizing ProviderResult TypeResult StatusFredric H Itzkowitz [facility] BI PROCEDURESFinal Result * (ABNORMAL) Microalbumin / creatinine urine ratio (07/23/2023 10:35 AM EDT) ComponentValueRef RangeTest MethodAnalysis TimePerformed AtPathologist SignatureCREATININE, RANDOM JZWGU2019 - 275 mg/dLQUESTALBUMIN, URINE1.8See Note: mg/dLQUESTComment: Reference Range: Reference Range Not established ALBUMIN/CREATININE RATIO, RANDOM URINE31(H)<30 mg/g creatQUESTComment: The ADA defines abnormalities in albumin excretion as follows: Albuminuria Category ?Result (mg/g creatinine) Normal to Mildly increased <30 Moderately increased ? 30-299 Severely increased > OR = 300 The ADA recommends that at least two of three specimens collected within a 3-6 month period be abnormal before considering a patient to be within a diagnostic category. Specimen (Source)Anatomical Location / LateralityCollection Method / Volume Collection TimeReceived TimeUrineUrine specimen obtained by clean catch procedure / Zdxkgzp9107/23/2023 10:35 AM EDT07/23/2023 10:36 AM EDT Narrative [facility] - 07/24/2023 2:20 PM EDT SPLIT 07/20/2023 FROM [id number] Resulting Agency Comment Performing Organization Information ?Site ID: [id number] ?Name: [employer] [facility] ?Address: [address] [place] [address], [address] [place] [id number] ?Director: Homer Funes MD Authorizing ProviderResult TypeResult Jorge Savage MDLAB URINE ORDERABLES Final ResultPerforming OrganizationAddressCity/State/ZIP CodePhone Number [facility] * COLONOSCOPY DIAGNOSTIC (12/13/2022)Anatomical RegionLateralityModality Radiographic ImagingSpecimen (Source)Anatomical Location / Laterality Collection Method / VolumeCollection TimeReceived Time12/13/2022 Narrative 12/13/2022 11:47 AM EDT normal Authorizing ProviderResult TypeResult StatusOz Savage MDIMG XR PROCEDURES Final Result from Last 3 Months or Most Recently Relevant to Health Maintenance Insurance Care Teams Team MemberRelationshipSpecialtyStart DateEnd Date Oz Savage MD [address] [facility] [address] [place] [address] [facility] [facility]07/25/22 Oz Savage MD [address] [facility] [address] [place] [address] PCP - [facility]04/13/23
--- OUTSIDE RECORDS SUMMARY | 2024-12-17 10:52 | XMS_ITS | Patient Health Record ---
Author Organization [facility] [place] Address [address] [place] [address] Care Team Providers Care Geoint Analyst Name Role Phone Oz Savage MD Primary Care Provider Unavailabl e Allergies No Known Allergies Reason For Referral No Information Medications Medication SIG (Take, Route, Frequency, Duration) Notes Start Date End Date Status Magnesium - as directed Orally ActiveLevothyroxine Sodium 88 MCGOral; Duration: 90 DaysActiveAspirin 81 MG1 tablet Orally Once a dayActiveOmeprazole 40 MGOral; Duration: 90 DaysActiveMulti Complete -as directed OrallyActiveCinnamon 500 MGas directed OrallyActive Pravastatin Sodium 40 MGOral; Duration: 90 DaysActiveCarvedilol 3.125 MGOral; Duration: 90 DaysActiveoxyBUTYnin Chloride ER 15 MGOral; Duration: 90 DaysActive Famotidine 20 MGOral; Duration: 90 DaysActiveEntresto 49-51 MG1 tablet Orally Twice a dayActiveFexofenadine-Pseudoephed ER 60-120 MG1 tablet as needed Orally Twice a dayActiveFerrous Sulfate 325 (65 Fe) MG1 tablet Orally Three times a WeekActiveJardiance 10 MGOral; Duration: 90 DaysActive Immunizations Vaccine Route Administration Date Status Comme nts Pneumococcal (Prevnar 13) Unknown 12/27/2017 Administer ed Tdap (Boostrix)Lcjuduu2908/30/2017AdministeredZoster (Zostavax)Pskhdui7108/20/2018 Administered Social History Tobacco Use: Social History Observation Description Date Details (start date - stop date) Never Smoker NA - NA Tobacco Use/Smoking Question Answer Notes Patient is a nonsmoker Problems Problem Type SNOMED Code ICD Code Onset Dates Problem Status W/U Status Risk Notes Problem Vocal cord paralysis (716873143) Vocal co rd paralysis (J38.00) ActiveconfirmedProblemMalignant neoplasm of female breast (763022146)Breast cancer, right (C50.911)ActiveconfirmedProblemAspiration pneumonia due to gastric secretions (J69.0)Activeconfirmed Plan Of Treatment No Information Insurance Providers Payer Name Payer Address Payer Phone Subscriber Number Group Number Insured Name Patient Relationship to Insured Coverage Start Date Coverage End Date [place] [address] [place] [address] [id number] Akashdoris GogoFatoumatadeisy - patient is the ponocaz01 2014[facility] [address] [place] [phone], GogoFatoumatadeisy - patient is the insured Medical (General) [...] hypertension I 27.29 Surgical History Surgery Date(Month/Year) Coronary artery bypass graft 2007 Cardiac Catheterization 11/29/2006 tonsillectomy and adenoidectomy lumpectomy, right breastright knee arthroscopysphincterotomytrigger finger jesscczJuxrvltokvl35/1/2023Hospitalization History Reason Date(Month/Year) Chest Pain-[facility] 12/14/2022
--- OUTSIDE RECORDS SUMMARY | 2024-12-17 10:52 | XMS_ITS | Clinical Summary ---
Author Organization [facility] Address [address] [place] [address] Care Team Providers Care Electricity Trader Name Role Phone Oz Savage MD Primary Care Provider [phone] Allergies No known active allergies Medications MedicationSigDispense QuantityRefillsLast FilledStart DateEnd DateStatus carvedilol (Coreg) 3.125 mg tablet Take 1 tablet twice a day by oral route for 90 days.Active oxybutynin XL (Ditropan-XL) 15 mg 24 hr tablet Take 1 tablet every day by oral route for 90 days.Active aspirin 81 mg EC tablet Take 1 tablet by mouth in the morning.Active ferrous sulfate 325 (65 Fe) MG tablet Take 325 mg by mouth every 8 (eight) hours.Active omeprazole (PriLOSEC) [address] capsule Take 1 capsule every day by oral route for 90 days.Active pravastatin (Pravachol) 40 mg tablet Take 1 tablet every day by oral route for 90 days.Active famotidine (Pepcid) 20 mg tablet Take 1 tablet every day by oral route for 90 days.Active levothyroxine (Synthroid, Levoxyl) 88 mcg tablet Take 1 tablet every day by oral route for 90 days.Active magnesium oxide (Mag-Ox) 400 mg (241.3 mg magnesium) tablet Take 400 mg by mouth twice a day.Active fexofenadine-pseudoephedrine (Ritika-D) 60-120 mg 12 hr tablet Take 1 tablet by mouth twice a day.Active empagliflozin (Jardiance) 10 mg Take 1 tablet by mouth in the morning.01/04/2021ctive multivitamin (Theragran-M) 9 mg iron-400 mcg tablet Take 1 tablet by mouth in the morning.Active sacubitril-valsartan (Entresto) 49-51 mg tablet Take 1 tablet twice a day by oral route.Active Active Problems ProblemNoted DateDiagnosed DateBenign essential lquimubzxxvr29/04/2024Numbness and tingling of both legs05/07/2023Spinal stenosis of lumbar region with neurogenic ecedpebkewuc59/25/2024bnormal ECG/Hx of CABG /ersonal history of breast /Special screening for malignant neoplasms, colon/CC/AHA stage B heart failure with reduced ejection mplfwkpp33cquired hammer toe of left foot/alculus of gallbladder without cholecystitis without ppspnbwmxqs78hronic diastolic heart ujainvr26/Elevated liver nsinyth61History of COVID-190Mild episode of recurrent major depressive disorder 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 breast Hypertensive heart hcjmqog89rimary osteoarthritis, right handSecondary ydcagyevnuekvw22/24/2023 10/02/2022Triple negative malignant neoplasm of gttzbi18 Vascular lzmdsgkt431382Qukjwgsqokreccyc05/11/202108/21/2023Loss of tastedenoid cystic nevytzfju56bnormal nbshfpjny76bnormal ultrasound of dqijow55 Nonproliferative diabetic retinopathy of left eye Sensorineural hearing loss, unilateral, right ear, with unrestricted hearing on the contralateral sidesymmetrical sensorineural hearing lossonductive hearing loss, nfbuqfodh89 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 bwbeoixb70/10/2020 10/02/2022Retained orthopedic hdmcxnlf41Reduced ejection fraction concurrent with and due to chronic heart vhuwaep80 Peripheral angiopathy due to type 2 diabetes lokeabxr24 Diabetic autonomic neuropathy associated with type 2 diabetes /11/2019 10/02/2022Mild nonproliferative diabetic retinopathy associated with type 2 diabetes wuwansbf84Long term current use of anticoagulant mznhvhk28nger mcocgflh44Seasonal allergic rhinitis due to sidech79LPRD (laryngopharyngeal reflux disease)6486Ekexedhzvgnxtqtigkhg63/17/201708/21/2023Paralyzed vocal cordsRLS (restless legs syndrome) Diastolic dysfunction with acute on chronic heart acujhtc28 Tension ftxbhvtf47Moderate nonproliferative diabetic retinopathy without macular edema associated with type 2 diabetes mellitus olyneuropathy due to type 2 diabetes otttpzcm38/11/2016 Lnebkaoa53/21/6996Dmcncfcvwz46iabetic renal disease 06/30/Hiatal eydkuq21/16/0707Hwfisxtxsvhs29/18/2016 10/02/2022cquired fevznhfislpqlf75llergic uhqsokng94/08/2015 10/02/20226969Aowlq98History of stroke without residual deficits 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 Disorder of lipid dcxocjjsyy68Other forms of chronic ischemic heart Overview (10/02/2022): EF 33% BY STRESS (02/25) EF 33% BY STRESS (02/25) Abnormal results of cardiovascular function gygtbky07 Overview (10/02/2022): ANTERIOR INFARCT; FRANCIS-INFARCT ISCHEMIA ANTERIOR INFARCT; FRANCIS-INFARCT ISCHEMIA Ischemic heart wuuyzyt77 Overview (10/02/2022): EF 33% BY STRESS (02/25) EF 33% BY STRESS (02/25) Chronic systolic heart llfqlcf09Hyperlipidemia03/12/2012 10/02/2022Mitral valve yiykiute39Type 2 diabetes mellitus without opkqwzefuxxy21Type 2 diabetes /29/2013 10/02/2022 Family History Medical HistoryRelationNameCommentsCoronary artery diseaseBrotherRelationName StatusCommentsBrotherAliveFatherDeceasedMotherDeceasedSisterDeceased Social History Tobacco UseTypesPacks/DayYears UsedDateSmoking Tobacco: FormerCigarettesQuit: 1972Smokeless Tobacco: Never Tobacco Cessation:Counseling Given: Not Answered Alcohol UseStandard Drinks/WeekCommentsNever0 (1 standard drink = 0.6 oz pure alcohol)UT Safety & EnvironmentAnswerDate RecordedFear of Current or Ex-Partner Not on 04/05/2023Emotionally AbusedNot on 04/05/2023hysically AbusedNot on 04/05/2023Sexually AbusedNot on 04/05/2023hysically or Sexually AbusedNot on 04/05/2023CommentsUnknownSex and Gender Information ValueDate RecordedSex Assigned at BirthNot on fileLegal UsvBfxoas27/29/2022 9:53 PM EDTGender IdentityNot on fileSexual OrientationNot on file Last Filed Vital Signs Vital SignReadingTime TakenCommentsBlood Ndhfdlgl914/75006/25/2024 1:25 PM EDT Xgcza0905/14/2025 1:25 PM EDTTemperature--Respiratory Rate--Oxygen Pmyymyhrfj22% 06/25/2024 1:25 PM EDTInhaled Oxygen Concentration--Hjmmnn97.9 kg (163 lb) 06/25/2024 1:25 PM PHRFfzspg298.1 cm (5' 5 )06/25/2024 1:25 PM EDTBody Mass Index27.12006/25/2024 1:25 PM EDT Plan of Treatment Health MaintenanceDue DateLast DoneCommentsCT Ewxkglacbtrd99/07/1950Colonoscopy 1949Colorectal Cancer Gskpalobx42/07/1950Diabetes: Hemoglobin A1C 1949FIT-DNA1949FIT1949FOBT1949Medicare Annual Wellness (AWV)1950 7730Jaqdcaggusxsx37/07/1950Diabetes: Retinopathy Ihbbhvujh09/07/1960 Depression Hmmpaermm01/07/1962Zoster Vaccines (1 of 2)Fall Risk Oivvyqlsc76/07/2015Pneumococcal Vaccine: 50+ Years (2 of 2 - PPSV23, PCV20, or PCV21)COVID-19 Vaccine (1 - season)2024 Influenza Vaccine (#1)2024dult Oxkxmxw26, 01/04/2009 QwfctkmwyMaqpigktjxql65/14/2024HIB VaccinesAged OutNo longer eligible based on patient's age to complete this topicHPV VaccinesAged OutNo longer eligible based on patient's age to complete this topicIPV VaccinesAged OutNo longer eligible based on patient's age to complete this topicMeningococcal B VaccineAged OutNo longer eligible based on patient's age to complete this topicMeningococcal VaccineAged OutNo longer eligible based on patient's age to complete this topic Rotavirus VaccinesAged OutNo longer eligible based on patient's age to complete this topic Insurance * Guarantor: Lilly Mckeon TypeRelation to PatientDate of BirthPhone Billing AddressPersonal/WssiulZvuw42/[birth year][address] [address] Care Teams Team MemberRelationshipSpecialtyStart DateEnd Date Oz Savage MD [address] [facility] [address] [place] [address] [facility]10/02/22
--- OUTSIDE RECORDS SUMMARY | 2024-12-17 10:52 | XMS_ITS | Clinical Summary ---
Author Organization [facility] Address [id number] [place] [address] Care Team Providers Care Paperhanger Supervisor Name Role Phone Oz Savage MD Primary Care Provider [phone] Allergies No known active allergies Medications MedicationSigDispense QuantityRefillsLast FilledStart DateEnd DateStatus carvedilol (COREG) 3.125 mg tablet Take 3.125 mg by mouth 2 (two) times a day with meals.Active losartan (COZAAR) 50 mg tablet Take 50 mg by mouth daily.Active oxybutynin XL (DITROPAN XL) 15 mg 24 hr tablet Take 15 mg by mouth daily.Active aspirin 81 mg Take 81 mg by mouth daily.Active ferrous sulfate 325 (65 FE) mg tablet Take 325 mg by mouth daily with breakfast.Active omeprazole (PriLOSEC) 40 mg capsule Take 40 mg by mouth daily.Active aapxusjk-ksjz-QF-calcium &mins (THERAGRAN-M) 9 mg iron-400 mcg tablet Take 1 tablet by mouth daily.Active levothyroxine (SYNTHROID, LEVOTHROID) 75 MCG tablet Take 88 mcg by mouth daily.Active famotidine (PEPCID) 20 mg tablet Take 20 mg by mouth 2 (two) times a day.Active pravastatin (PRAVACHOL) 40 mg tablet Take 40 mg by mouth daily.Active cinnamon bark (CINNAMON) 500 mg capsule Take 500 mg by mouth daily.Active magnesium oxide (MAG-OX) 400 mg tablet Take 400 mg by mouth 2 (two) times a day.Active fexofenadine-pseudoephedrine (ZEN-D) 60-120 mg per 12 hr tablet Take 1 tablet by mouth 2 (two) times a day.Active ibuprofen (ADVIL,MOTRIN) 200 mg tablet Take 200 mg by mouth every 6 (six) hours as needed for pain.Active Active Problems No known active problems Family History Medical HistoryRelationNameCommentsNo Known ProblemsFatherNo Known Problems MotherDiabetesPaternal GrandfatherRelationNameStatusCommentsFatherDeceased (Age 60)MotherDeceased (Age 86)trauma to head from a fallPaternal GrandfatherDeceased Social History Tobacco UseTypesPacks/DayYears UsedDateSmoking Tobacco: NeverSmokeless Tobacco: NeverAlcohol UseStandard Drinks/WeekCommentsYes0 (1 standard drink = 0.6 oz pure alcohol)very rareChildcareAnswerDate MsyvgnslEmhfuqmyzJnabmgk15/12/2019 EmploymentAnswerDate QusyrmejSjgmdoaozfVwpgjdp64/12/2019Purpose - LifeAnswerDate RecordedPurpose and direction in hbeiLptgsot04/11/2021CommentsNoSex and Gender InformationValueDate RecordedSex Assigned at BirthNot on fileLegal Sex Dbunbv6909/17/2014 11:31 AM EDTGender IdentityNot on fileSexual OrientationNot on file Last Filed Vital Signs Vital SignReadingTime TakenCommentsBlood Odnesach682/59003/26/2019 3:00 PM EST Kxuty9135/12/2020 2:30 PM VAODhgspgljten72 ??C (96.8 ??F)03/26/2019 1:59 PM EST Respiratory Goki571803/26/2019 3:00 PM ESTOxygen Zftpjeqofn75%03/26/2019 3:05 PM ESTInhaled Oxygen Concentration--Gnfqmb65.4 kg (175 lb)03/26/2019 12:28 PM EST Fzpera525.1 cm (5' 5 )03/26/2019 12:28 PM ESTBody Mass Index29.12003/26/2019 12:28 PM EST Plan of Treatment Health MaintenanceDue DateLast DoneCommentsDepression Tgztlmdmu55/07/1962Tobacco Vfqyfrvwl74/07/1962Fall Risk Fflbjapcc60/07/2015Zoster (Shingles) Vaccine (2 of 3)RSV ( or age 60+ yrs) (1 - 1-dose 75+ series) 01/07/2025Influenza Qcnpzpu8710/13/2024DTaP,Tdap and Td Vaccines (2 - Td or Tdap) Medical Devices ImplantedTypeAreaManufacturerDevice IdentifierShelf Expiration DateModel / Serial / LotK Wire Dbl End [employer] - [id number] - [id number] Implanted:Qty: 2 on 04/03/2018 by Edwin Summers DO at [facility] ImplantRight: CchvXTOPE15/20/[id number] / [id number] / [id number]:ref [id number] c-wire 0.062 trocarCerlage Wire W/Eye [id number] - Sna - [id number] Implanted:Qty: 2 on 04/03/2018 by Edwin Summers DO at [facility] ImplantRight: [id number] / NA / NAExplantedTypeAreaManufacturerDevice IdentifierShelf Expiration DateModel / Serial / LotK Wire Dbl End [employer] - [id number] - [id number] Explanted:Qty: 2 on 04/03/2018 by Edwin Summers DO at [facility] ImplantRight: MafiNFXOY52/20/[id number] / [id number] / [id number]:0.062 c-wire trocar Insurance Care Teams Team MemberRelationshipSpecialtyStart DateEnd Oz Savage [place] [address] [place] [address] [facility]04/18/13
--- OUTSIDE RECORDS SUMMARY | 2024-12-17 10:53 | XMS_ITS | CCD ---
Author Organization [facility] Care Team Providers Care Medical Reception Name Role Phone PHYSICIAN, DEFAULT Unavailable Unavailable PHYSICIAN, DEFAULT Unavailable Unavailable HONG SCHILLING Unavailable Unavailable MD Hong Schilling Primary Care Provider [phone] DO Bill Trammell Attending Provider [phone] DO Wai Duvall II Attending Provider MD Hong Schilling Attending Provider MD Hong Schilling Primary Care Provider [phone] DO Bill Trammell Attending Provider [phone] JANET, DR COOPER Consulting Unavailable ELTAHAWY, DR [...] Schilling MD Unavailable GERMANIA HELTON Attending Unavailable JOHN, ARIEL Han Attending Unavailable YOHANA, YANNI Choi Attending Unavailable JAMILA CARCAMO Attending Unavailable HONG SCHILLING Referring Unavailable ITZYELENA, BILL H Attending Unavailable JOHN, ARIEL Han Attending Unavailable HONG SCHILLING Attending Unavailable RUSHER, ARIEL Han Attending Unavailable JOHN, ARIEL Han Attending Unavailable YANNI MULLER Attending Unavailable HONG SCHILLING Attending Unavailable HONG SCHILLING Attending Unavailable RUS, ARIEL S Attending Unavailable RUSHER, ARIEL S Attending Unavailable ITZYELENA, BILL H Attending Unavailable JOHN, ARIEL Han Attending Unavailable Jan ARNETT, Litzy Unavailable Allergies Allergy ClassificationReported Allergen(s)Allergy TypeDate of OnsetReaction(s) Facility (1 source)31268,00; Translations: [33329,00]Propensity to adverse reactions (disorder)29-43-0087Jqz [facility] Rep[facility] Medications Current Medications MedicationDrug Class(es)DatesSig (Normalized)Sig (Original)acetaminophen 325 mg / oxyCODONE hydrochloride 5 mg oral tablet (4 sources)Opioid AgonistStart: 59-18-1221hrks 1 tablet by mouth every four to six hoursOxycodone-Acetaminophen (Percocet) 5-325 mg tablet Active 1 TAB PO EVERY 4-6 HOURS 7 2 February 22spirin 81 mg delayed release oral tablet (20 sources)Platelet Aggregation Inhibitor, Nonsteroidal Anti-inflammatory Drug Start: 58-00-0005nqxg 81 mg by mouth once dailyAspirin Active 81 MG PO Daily December 31, 2020 1:00amASPIRIN 81 PO Take by mouth Activecarvedilol 3.125 mg oral tablet (20 sources)alpha-Adrenergic Mervin, beta-Adrenergic BlockerStart: 08-18-2024 carvedilol (Coreg) 3.125 MG tablet 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 TAKE 1 TABLET IN THE MORNING AND TAKE 1 TABLET BEFORE BEDTIME 180 tablet 3 08/18/2024 ActiveStart: 45-95-3708bxmb 1 tablet by mouth in the morning carvedilol (Coreg) 3.125 MG tablet 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 Take 1 tablet (3.125 mg) by mouth in the morning and 1 tablet (3.125 mg) before bedtime. 180 tablet 05/31/2024 ActiveStart: 55-25-8924mgoyrqxtyd (Coreg) 3.125 MG tablet 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 (CMS/HCC) TAKE 1 TABLET TWICE DAILY 200 tablet 1 01/07/2024 ActiveStart: 09-40-6826tfzvplrhkf (Coreg) 3.125 MG tablet 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 (CMS/HCC) TAKE 1 TABLET TWICE DAILY 200 tablet 3 01/07/2023 Activecinnamon bark 500 mg oral capsule (20 sources)Start: 60-86-8121bmch 1 capsule by mouth twice dailyCinnamon Bark (Cinnamon) 500 mg Capsule Active 500 MG PO Twice daily December 31, 2020 1:00amtake 1 capsule by mouth once dailycinnamon 500 MG capsule Take 500 mg by mouth Daily Activeempagliflozin 10 mg oral tablet (20 sources)Sodium-Glucose Cotransporter 2 InhibitorStart: 00-20-3250Glvnmteyw 10 MG Indications: Type 2 diabetes mellitus with peripheral vascular disease (HCC) TAKE 1TABLET EVERY DAY 90 tablet 3 05/05/2024 ActiveStart: 01-19-2021 Jardiance 10 MG Indications: Type 2 diabetes mellitus with peripheral vascular disease (CMS/HCC) TAKE 1 TABLET EVERY DAY 90 tablet 3 04/16/2023 Active famotidine 20 mg oral tablet (20 sources)Histamine-2 Receptor AntagonistStart: 45-93-1219vmsnjxmjqd (Pepcid) 20 MG tablet Indications: LPRD (laryngopharyngeal reflux disease) TAKE 1 TABLET AT BEDTIME 100 tablet 3 07/23/2024 ActiveStart: 42-46-3537tmaf 1 tablet by mouth at bedtimefamotidine (Pepcid) 20 MG tablet Indications: LPRD (laryngopharyngeal reflux disease) Take 1 tablet(20 mg) by mouth at bedtime 100 tablet 2 05/07/2023 Activeferrous sulfate 325 mg oral tablet (20 sources)Start: 07-25-1581kelz 1 tablet by mouth every eight hoursferrous sulfate 325 (65 Fe) MG tablet Indications: Anemia, unspecified type Take 1 tablet (325 mg) by mouth every 8 (eight) hours 270 tablet 3 01/08/2024 Active Start: 51-91-2371oblh 325 mg by mouth twice dailyFerrous Sulfate Active 325 MG PO Twice daily December 31, 2020 1:00amtake 1 tablet by mouth every eight hoursferrous sulfate 325 (65 Fe) MG tablet Take 325 mg by mouth every 8 (eight) hours. Wgpjgg14 hr fexofenadine hydrochloride 60 mg / pseudoephedrine hydrochloride 120 mg extended release oraltablet (20 sources)alpha-Adrenergic Agonist, Histamine-1 Receptor AntagonistStart: 42-78-8296rtah 1 tablet by mouth every twelve hours, then take 1 tablet by mouth every twelve hoursFexofenadine-Pseudoephedrine (Ritika-D 12 Hour) 60-120 mg Tablet Extended Release 12 Hr Active 1 TAB PO Q12H December 31, 2020 1:00am take 1 tablet by mouth once in the morning, then take 1 tablet by mouth every twelve hours in the eveningfexofenadine-pseudoephedrine ER (Ritika-D) 60-120 MG 12 hr tablet Take 1 tablet by mouth in the morning and 1 tablet in the evening. Activefluticasone propionate 0.05 mg/actuat metered dose nasal spray (20 sources)CorticosteroidStart: 66-47-5646svpu 1-2 spray(s) nasal route once dailyfluticasone (Flonase) 50 MCG/ACT nasal spray Indications: Seasonal allergic rhinitis due to pollen Administer 1-2 sprays into each nostril Daily Shake gently. Before first use, prime pump. After use,clean tip and replace cap. 16 g 2 05/07/2023 Activeibuprofen 600 mg oral tablet (4 sources)Nonsteroidal Anti-inflammatory DrugStart: 25-31-7778Enfwyeler Active 600 MG PO EVERY 4-6 HOURS 14 March 15, 2021 1:00am do not exceed 4 doses in a 24 hour periodammonium lactate 120 mg/ml topical cream (20 sources)Start: 01-09-2024 End: 22-50-6078qsfuxdit lactate (Amlactin) 12 % cream Indications: Corns and callosities Apply topically Daily 140g 3 01/09/2024 01/08/2025 Active levothyroxine sodium 0.088 mg oral tablet (20 sources)l-ThyroxineStart: 78-60-4619qafjhmxyyvwqw (Synthroid, Levoxyl) 88 MCG tablet Indications: Acquired hypothyroidism TAKE 1 TABLETEVERY MORNING 90 tablet 3 08/18/2024 ActiveStart: 37-26-8551nddb 1 tablet by mouth in the morning levothyroxine (Synthroid, Levoxyl) 88 MCG tablet Indications: Acquired hypothyroidism Take 1 tablet(88 mcg) by mouth in the morning. 90 tablet 05/31/2024 ActiveStart: 40-69-1593xkqlonkzishez (Synthroid, Levoxyl) 88 MCG tablet Indications: Acquired hypothyroidism (CMS/HCC) TAKE 1 TABLET EVERY MORNING 100 tablet 1 01/07/2024 ActiveStart: 49-56-7378tssj 1 tablet by mouth in the morninglevothyroxine (Synthroid, Levoxyl) 88 MCG tablet Indications: Acquired hypothyroidism (CMS/HCC) Take 1 tablet (88 mcg) by mouth in the morning. 100 tablet 3 01/15/2023 Activemagnesium oxide 500 mg oral tablet (4 sources)Start: 04-24-1161uptq 500 mg by mouth twice dailyMagnesium Oxide Active 500 MG PO Twice daily January 19, 2021 1:00amMultiple Vitamins-Minerals (Thera-M) tablet (20 sources)take 1 tablet by mouth in the morningMultiple Vitamins-Minerals (Thera-M) tablet Take 1 tablet by mouth in the morning. ActiveMultivitamin preparation (4 sources)Start: 21-93-3850scgl 1 tablet by mouth once dailyMultivitamin Active 1 TAB PO Daily December 31, 2020 3:58pmStart: 35-87-2057iybq 1 tablet by mouth once dailyMultivitamin Active 1 TAB PO Daily December 31, 2020 1:00am omeprazole 40 mg delayed release oral capsule (20 sources)Proton Pump InhibitorStart: 65-30-9597eedggvsktr (PriLOSEC) [address] capsule Indications: Gastroesophageal reflux disease with esophagitis, unspecified whether hemorrhage TAKE 1 CAPSULE EVERY DAY (NEED APPOINTMENT) 100 capsule 3 07/23/2024 ActiveStart: 65-35-7003vzjtlyztyx (PriLOSEC) [address] capsule Indications: Gastroesophageal reflux disease with esophagitis, unspecified whether hemorrhage TAKE 1 CAPSULE EVERY DAY 100 capsule 3 04/25/2023 Mzxfhe38 hr oxybutynin chloride 15 mg extended release oral tablet (20 sources)Cholinergic Muscarinic AntagonistStart: 50-48-3753nkujxsejln XL (Ditropan-XL) 15 MG 24 hr tablet Indications: OAB (overactive bladder) TAKE 1 TABLET EVERY MORNING 90 tablet 3 08/18/2024 ActiveStart: 57-48-2216kpdi 1 tablet by mouth every twenty-four hours in the morningoxybutynin XL (Ditropan-XL) 15 MG 24 hr tablet Indications: OAB (overactive bladder) Take 1 tablet (15 mg) by mouth in the morning. 90 tablet 05/31/2024 ActiveStart: 82-72-8485xhprneyila XL (Ditropan-XL) 15 MG 24 hr tablet Indications: OAB (overactive bladder) TAKE 1 TABLET EVERY MORNING 100 tablet 1 01/07/2024 ActiveStart: 35-40-6722mmvr 1 tablet by mouth every twenty-four hours in the morningoxybutynin XL (Ditropan- XL) 15 MG 24 hr tablet Indications: OAB (overactive bladder) Take 1 tablet (15 mg) by mouth in the morning. 100 tablet 3 10/02/2022 ActiveStart: 04-97-4055gqaq 15 mg by mouth once dailyOxybutynin Chloride Active 15 MG PO Daily December 31, 2020 1:00ampravastatin sodium 40 mg oral tablet (20 sources)HMG-CoA Reductase InhibitorStart: 21-20-3322vkbggpozzcu (Pravachol) 40 MG tablet Indications: Hypercholesterolemia TAKE 1 TABLET EVERY DAY 90 tablet 3 08/18/2024 ActiveStart: 76-92-9449hglg 1 tablet by mouth once daily pravastatin (Pravachol) 40 MG tablet Indications: Hypercholesterolemia Take 1 tablet (40 mg) by mouth Daily 90 tablet 05/31/2024 ActiveStart: 01-07-2024 pravastatin (Pravachol) 40 MG tablet Indications: Hypercholesterolemia (CMS/HCC) TAKE 1 TABLET EVERY DAY 100 tablet 1 01/07/2024 ActiveStart: 12-28-2020 pravastatin (Pravachol) 40 MG tablet Indications: Hypercholesterolemia (CMS/HCC) TAKE 1 TABLET EVERY DAY 100 tablet 3 01/07/2023 Activesacubitril 49 mg / valsartan 51 mg oral tablet (20 sources)Angiotensin 2 Receptor BlockerStart: 34-75-9577lztn 1 tablet by mouth once dailySacubitril-Valsartan (Entresto) 49-51 mg Tablet Active 1 TAB PO Daily December 31, 2020 1:00amsacubitril-valsartan (Entresto) 49-51 MG tablet every 12 (twelve) hours Activesulfamethoxazole 800 mg / trimethoprim 160 mg oral tablet (2 sources)Dihydrofolate Reductase Inhibitor Antibacterial, Sulfonamide AntimicrobialStart: 10-06-2024 End: 81-44-5383ftpx 1 tablet by mouth once in the morning, then take 1 tablet by mouth once at bedtimesulfamethoxazole-trimethoprim (Bactrim DS) 800-160 MG per tablet Indications: Infection of index finger , Swelling of index finger Take 1 tablet by mouth in the morning and 1 tablet before bedtime. Do all this for 10 days. 20 tablet 10/06/2024 10/16/2024 Active Completed/Discontinued Medications MedicationDrug Class(es)DatesSig (Normalized)Sig (Original)cephalexin 500 mg oral capsule (4 sources)Cephalosporin AntibacterialStart: 09-23-2024 End: 04-69-5178jmpx 1 capsule by mouth in the morning, then take 1 capsule by mouth in the evening, then take 1 capsule by mouth at bedtimecephalexin (Keflex) 500 MG capsule Indications: Infection of index finger Take 1 capsule (500 mg) by mouth in the morning and 1 capsule (500 mg) in the evening and 1 capsule (500 mg) before bedtime. Do all this for 10 days. 30 capsule 09/23/2024 10/06/2024 Discontinued (Other)Magnesium (20 sources)Start: 12-31-2020 End: 81-37-9057iwiv 15 mg by mouth once dailyMagnesium Discontinued 15 MG PO Daily December 31, 2020 3:58pm January 19, 2021 5:30pmStart: 12-31-2020 End: 64-38-1865ters 15 mg by mouth once dailyMagnesium Discontinued 15 MG PO Daily December 31, 2020 1:00am January 19, 2021 5:30pmmagnesium 250 MG tablet every 12 (twelve) hours Activemagnesium 250 MG tablet every 12 (twelve) hours. Active Problems Active Problems Problem ClassificationProblemDateDocumented DateEpisodic/ChronicAcquired foot deformities (20 sources)Acquired hammer toe of left foot; Translations: [Other hammer toe(s) (acquired), left foot]Onset: 740410-16-3725YilxbenPctjdcin foot deformities (20 sources)Acquired hammer toe of right foot; Translations: [Other hammer toe(s) (acquired), right foot]Onset: 761026-52-7982ZudurpxFjkrkjdw foot deformities (9 sources)Contracture of joint of toe; Translations: [Other deformities of toe(s) (acquired), left foot]07-16-1357NwunoxvpRazabo of breast (20 sources)Carcinoma of breast ; Translations: [Malignant neoplasm of unspecified site of unspecified female breast]Onset: 741065-59-4839Rttxmxg Cancer of head and neck (20 sources)Malignant tumor of submandibular gland; 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]Onset: 606566-01-1811PzryldbMddjejj kidney disease (20 sources)Chronic kidney disease stage 3A ; Translations: [Chronic kidney disease, stage 3a (HCC) (CMS/HCC)]Onset: 648540-42-4593IwbwhulBbhvdsj ulcer of skin (20 sources)Non-pressure chronic ulcer of other part of left foot with fat layer exposed; Translations: [Ulcer of other part of foot]Onset: ChronicCoagulation and hemorrhagic disorders (20 sources)Thrombocytopenic disorder; Translations: [Thrombocytopenia, unspecified]Onset: 930642-34-0185VahjodtBiprihkoeu heart failure; nonhypertensive (20 sources)Heart failure, unspecified; Translations: [Systolic heart failure stage B]Onset: 895203-36-4501VtfrouuYawfqwun atherosclerosis and other heart disease (20 sources)Coronary arteriosclerosis; Translations: [Atherosclerotic heart disease of [place] coronary artery without angina pectoris]Onset: 03-10-2013 85-12-9995VrwyczyQwlhjevc, dementia, and amnestic and other cognitive disorders (20 sources)Vascular dementia ; Translations: [Vascular dementia without behavioral disturbance]Onset: 402481-90-6658BsouiyrJteodvhg mellitus with complications (20 sources)Disorder of kidney due to diabetes mellitus; Translations: [Type 2 diabetes mellitus with diabetic nephropathy]Onset: hronic Diabetes mellitus without complication (20 sources)Type 2 diabetes mellitus without complications; Translations: [Type 2 diabetes mellitus]Onset: 240153-82-3606FukjhvfNrjhzxbbe of lipid metabolism (20 sources)Hypercholesterolemia; Translations: [Pure hypercholesterolemia, unspecified]Onset: 914711-53-0979AxcngkoIsyuxalxml disorders (20 sources)Gastro-esophageal reflux disease without esophagitis; Translations: [Laryngopharyngeal reflux]Onset: 125358-22-2948XiaxuilOctavvziv hypertension (20 sources)Benign essential hypertension; Translations: [Essential (primary) hypertension]Onset: 449262-83-3553VdnouirYznrwkcw; including migraine (20 sources)Tension-type headache; Translations: [Tension-type headache, unspecified, not intractable]Onset: 108867-22-6622UpeqkrjDeqsp valve disorders (20 sources)Mitral valve disorder; Translations: [Rheumatic mitral valve disease, unspecified]Onset: 241937-03-8872ZywkhxtQhljbjubptyu with complications and secondary hypertension (20 sources)Hypertensive heart disease with heart failure; Translations: [Hypertension secondary to endocrine disorder]Onset: 446386-72-5791Rxensfo Late effects of cerebrovascular disease (20 sources)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 accident; Translations: [Unspecified symptoms and signs involving cognitive functions following cerebral infarction]Onset: hronic Malignant neoplasm without specification of site (20 sources)Malignant adenomatous neoplasm; Translations: [Malignant (primary) neoplasm, unspecified]Onset: 420705-56-8900UewrqelWflj disorders (20 sources)Recurrent major depressive episodes, mild ; Translations: [Major depressive disorder, recurrent, mild]Onset: 342009-14-9046FhjzsfuMausygl (3 sources)Onychomycosis; Translations: [Tinea unguium]73-94-5566Fktplzrd Osteoarthritis (20 sources)Osteoarthritis of joint of right hand; Translations: [Primary osteoarthritis, right hand]Onset: 766903-39-8510TltzhkxEiviuuokawnb (20 sources)Osteoporosis; Translations: [Age-related osteoporosis without current pathological fracture]Onset: 857269-59-9862AuxvgbuWtqlk connective tissue disease (10 sources)Swelling of finger ; Translations: [Other specified soft tissue disorders]Onset: 173160-35-4718FmhlihqsPjewv ear and sense organ disorders (20 sources)Asymmetrical sensorineural hearing loss; Translations: [Sensorineural hearing loss, bilateral]Onset: 841974-45-8448JigehoiBbjbf ear and sense organ disorders (20 sources)Conductive hearing loss, bilateral; Translations: [Conductive hearing loss, bilateral]Onset: 249303-81-0078GeuzjanHgvox ear and sense organ disorders (20 sources)Sensorineural hearing loss, unilateral, right ear, with unrestricted hearing on the contralateral side; Translations: [Sensorineural hearing loss, unilateral]Onset: 151328-12-7581PdoavkyXcmft ear and sense organ disorders (1 source)Impaired auditory discrimination; Translations: [Other abnormal auditory perceptions, right ear]82-66-6397NwvnjyeaUfipj gastrointestinal disorders (6 sources)Complete fecal incontinence; Translations: [Full incontinence of feces]Onset: 693340-97-5636NucafoemYzlnw hereditary and degenerative nervous system conditions (20 sources)Restless legs; Translations: [Restless legs syndrome]Onset: 343286-14-3630AbtjeakYndzi nervous system disorders (20 sources)Neuropathy; Translations: [Polyneuropathy, unspecified]Onset: 431360-32-0161UchwlnqEoexo nutritional; endocrine; and metabolic disorders (20 sources)Disorder of lipid metabolism; Translations: [Disorder of lipoprotein metabolism, unspecified]Onset: 184872-22-8944QozcbhxXvtrj skin disorders (7 sources)Callosity; Translations: [Corns and callosities]26-73-6608Oerbzbhp Other skin disorders (3 sources)Dystrophia unguium; Translations: [Nail dystrophy]73-31-1366Vtfgwler Other upper respiratory disease (20 sources)Allergic rhinitis; Translations: [Allergic rhinitis, unspecified] Onset: 105523-49-9956XdxhcvjOyhel upper respiratory disease (20 sources)Vocal cord paralysis; Translations: [Paralysis of vocal cords and larynx, unspecified]Onset: 002930-23-2366OeiyqyeUreja upper respiratory disease (20 sources)Allergic rhinitis due to pollen; Translations: [Allergic rhinitis due to pollen]Onset: 489405-47-7684OsgivwgUdjd-; endo-; and myocarditis; cardiomyopathy (except that caused by tuberculosis or sexually transmitted disease) (20 sources)Cardiomyopathy associated with another disorder; Translations: [Cardiomyopathy, unspecified]Onset: 882952-20-7549UfvwrzkJjqxljsavj and visceral atherosclerosis (7 sources)Peripheral vascular disease; Translations: [Peripheral vascular disease, unspecified]73-22-2600GfnfujfKqtsvcvkk heart disease (20 sources)Pulmonary hypertension; Translations: [Pulmonary hypertension, unspecified]Onset: 476396-17-6836MfplxipFqdpduog codes; unclassified (20 sources)Orthopedic hardware in situ; Translations: [Presence of functional implant, unspecified]Onset: 670260-88-9692FmwcrbyIbxe and subcutaneous tissue infections (15 sources)Infection of finger; Translations: [Local infection of the skin and subcutaneous tissue, unspecified]Onset: 885379-37-5842YkmcwdqdDdnvqic disorders (20 sources)Hypothyroidism, unspecified; Translations: [Acquired hypothyroidism] Onset: 885416-65-0346VggikyzJcfjp infection (4 sources)COVID-19; Translations: [COVID-19]Onset: 11-20-2020 Past or Other Problems Problem ClassificationProblemDateDocumented DateEpisodic/ChronicAbdominal hernia (20 sources)Hiatal hernia; Translations: [Diaphragmatic hernia without obstruction or gangrene]Onset: 279962-59-0460CpfhowgjOriyguq disorders (20 sources)Anger reaction; Translations: [Irritability and anger]Onset: 275519-46-8863MmrtfeacGgztewu tract disease (20 sources)Cholelithiasis without obstruction; Translations: [Calculus of gallbladder without cholecystitis without obstruction]Onset: 09-04-2022 11-62-2511PhnkepgyXwisao of breast (20 sources)Personal history of malignant neoplasm of breast; Translations: [History of malignant neoplasm of breast]Onset: 74-95-3389UzdlpjnqDetuehqo atherosclerosis and other heart disease (3 sources)Presence of aortocoronary bypass graft; Translations: [Aortocoronary bypass status]Onset: 51-25-5966OnqlkwkpF Codes: Fall (1 source)Unspecified fall, initial encounter; Translations: [UNSPECIFIED FALL INITIAL ENCOUNTER]Onset: 92-15-9743VvjlvhldOcjkj and electrolyte disorders (5 sources)Hyperkalemia; Translations: [Dehydration]Onset: 48-47-1147Cpulftuv Genitourinary symptoms and ill-defined conditions (1 source)Personal history of urinary (tract) infections; Translations: [PERS HX URINARY TRACT INFECTIONS]Onset: 01-41-6447TwdxgjyfDxvdlopq; including migraine (20 sources)Headache; Translations: [Headache]Onset: EpisodicMalaise and fatigue (1 source)Weakness; Translations: [WEAKNESS]Onset: 70-87-4267EvqbtutfMjjijn and vomiting (1 source)Nausea; Translations: [NAUSEA]Onset: 92-13-4254RxiwoobpOxdie aftercare (1 source)FDC (current) use of aspirin; Translations: [SKILLED NURSING CURRENT USE OF ASPIRIN]Onset: 94-21-5336WmpmmyumZptmx aftercare (1 source)Other supervisor intermediates (current) drug therapy; Translations: [OTH CRUISE COUNSELOR CURRENT DRUG THERAPY]Onset: 11-13-9343AwxmribyXfntt aftercare (20 sources)Long-term current use of anticoagulant; Translations: [exterminator termite (current) use of anticoagulants]Onset: 553747-56-7894IxklmjwkMznzg circulatory disease (1 source)Personal history of transient ischemic attack (TIA), and cerebral infarction without residual deficits; Translations: [PERS HX TIA AND CI NO RESID DEFICIT]Onset: 27-47-1226KefpswcbYsnvz circulatory disease (20 sources)History of cerebrovascular accident without residual deficits; Translations: [Personal history of transient ischemic attack (TIA), and cerebral infarction without residual deficits]Onset: 565768-25-7447QfktmijrEulga infections; including parasitic (20 sources)Personal history of other infectious and parasitic diseases; Translations: [History of COVID-19]Onset: 317539-02-2832CzgthgvgQtqpu injuries and conditions due to external causes (1 source)Other specified injuries of right shoulder and upper arm, initial encounter; Translations: [OTH SPEC INJ RT SHOULDR UP ARM INIT]Onset: 11-22-2020 EpisodicOther liver diseases (4 sources)Abnormal levels of other serum enzymes; Translations: [ABNORMAL LEVELS OTHER SERUM ENZYMES]Onset: 39-42-7355VkktfesyMalxk liver diseases (20 sources)Elevated liver enzymes level; Translations: [Abnormal levels of other serum enzymes]Onset: 295846-37-3489OmqviuyhXnkrx lower respiratory disease (1 source)Shortness of breath; Translations: [SHORTNESS OF BREATH]Onset: 43-06-5531IbwzlazuWhkva nervous system disorders (20 sources)Loss of taste; Translations: [Parageusia]Onset: EpisodicOther nervous system disorders (20 sources)Paresthesia of lower extremity; Translations: [Anesthesia of skin] Onset: 695996-81-3930TsfwxariNsmnr non-traumatic joint disorders (3 sources)Pain in right shoulder; Translations: [PAIN IN RIGHT SHOULDER]Onset: 64-81-5601EvahedmaNnfxr screening for suspected conditions (not mental disorders or infectious disease) (20 sources)Electrocardiogram abnormal; Translations: [Abnormal electrocardiogram [ECG] [EKG]]Onset: 482346-85-2506JlqymawkIuasklvk codes; unclassified (20 sources)Edema; Translations: [Edema, unspecified]Onset: EpisodicSpondylosis; intervertebral disc disorders; other back problems (20 sources)Spinal stenosis of lumbar region; Translations: [Spinal stenosis, lumbar region with neurogenic claudication]Onset: 478249-73-9595Mrplkdow Sprains and strains (1 source)Strain of unspecified muscle, fascia and tendon at shoulder and upper arm level, right arm, initialencounter; Translations: [STRN UNS MSC F TND SHLDR UA RA INIT]Onset: 26-57-8375XxpccjtmIgwynqbzbel injury; contusion (1 source)Contusion of right shoulder, initial encounter; Translations: [CONTUSION RIGHT SHOULDER INITIAL]Onset: 37-29-4516PhvkqmquTotzq infection (20 sources)COVID-19; Translations: [Other specified viral infection]Onset: 787353-62-0890Cfognpha Results Test NameValueInterpretationReference RangeFacilityCBC (INCLUDES DIFF/PLT)on 11-29-8894Bsvtatdga (Bld) [#/Vol]0.021 10*3/uLNormal0-200[facility] Comment on above:Performed By: #### 2700, 5121, 26058 #### [facility] [address] [address] Clinical Immunologist: Homer Funes MDBasophils/100 WBC (Bld)0.3 %NormalQuest DiagnosticsComment on above:Performed By: #### 2090, 5519, 89370 #### [facility] [address] [place] [address] Clinical Immunologist: Homer Funes MDEosinophils (Bld) [#/Vol]0.099 10*3/uLNormal 15-500Quest DiagnosticsComment on above:Performed By: #### 7600, 6399, 99506 #### [facility] of [address], [address] [place] [address] Clinical Immunologist: Homer Funes MDEosinophils/100 WBC (Bld)1.4 %NormalQuest DiagnosticsComment on above:Performed By: #### 7600, 6399, 61264 #### [facility] of [address], [address] [place] [address] Clinical Immunologist: Homer Funes MDErythrocyte distribution width (RBC) [Ratio] 13.5 %Iuwuyq82.0-15.0Quest DiagnosticsComment on above:Performed By: #### 7600, 6399, 24779 #### [facility] of [address], [address] [place] [address] Clinical Immunologist: Homer Funes MDHematocrit (Bld) [Volume fraction]46.1 %High 35.0-45.0Quest DiagnosticsComment on above:Performed By: #### 7600, 6399, 24079 #### [facility] of [address], [address] [place] [address] Clinical Immunologist: Homer Funes MDHemoglobin (Bld) [Mass/Vol]14.1 g/dLNormal 11.7-15.5Quest DiagnosticsComment on above:Performed By: #### 7600, 6399, 96727 #### [facility] of [address], [address] [place] [address] Clinical Immunologist: Homer Funes MDLymphocytes (Bld) [#/Vol]1.221 10*3/uLNormal 850-3900Quest DiagnosticsComment on above:Performed By: #### 7600, 6399, 57472 #### [facility] of [address], [address] [place] [address] Clinical Immunologist: Homer Funes MDLymphocytes/100 WBC (Bld)17.2 %NormalQuest DiagnosticsComment on above:Performed By: #### 7600, 6399, 84864 #### [facility] of [address], [address] [place] [address] Clinical Immunologist: Homer Funes MDMCH (RBC) [Entitic mass]30.5 hbPrapno04.0-33.0 [facility] DiagnosticsComment on above:Performed By: #### 7600, 6399, 22069 #### [facility] of [address], [address] [place] [address] Clinical Immunologist: Homer BARAJASCHC (RBC) [Mass/Vol]30.6 g/dLLow32.0-36.0 [facility] DiagnosticsComment on above:Result Comment: For adults, a slight decrease in the calculated MCHC value (in the range of 30 to 32 g/dL) is most likely not clinically significant; however, it should be interpreted with caution in correlation with other red cell parameters and the patient's clinical condition.Performed By: #### 7600, 6399, 02073 #### [facility] of [address], [address] [place] [address] Clinical Immunologist: Homer Funes MDMCV (RBC) [Entitic vol]99.6 aJOcchxb36.0-100.0 [facility] DiagnosticsComment on above:Performed By: #### 7600, 6399, 31880 #### [facility] of [address], [address] [place] [address] Clinical Immunologist: Homer BARAJASonocytes (Bld) [#/Vol]0.632 10*3/uLNormal 200-950Quest DiagnosticsComment on above:Performed By: #### 7600, 6399, 40584 #### [facility] of [address], [address] [place] [address] Clinical Immunologist: Homer Merati MDMonocytes/100 WBC (Bld)8.9 %NormalQuest DiagnosticsComment on above:Performed By: #### 7600, 6399, 14881 #### [facility] of [address], [address] [place] [address] Clinical Immunologist: Homer Buschutrophilkiah (Bld) [#/Vol]5.126 10*3/uLNormal 1500-7800Quest DiagnosticsComment on above:Performed By: #### 7600, 6399, 05485 #### [facility] of [address], [address] [place] [address] Clinical Immunologist: Homer Buschutrophils/100 WBC (Bld)72.2 %NormalQuest DiagnosticsComment on above:Performed By: #### 7600, 6399, 08606 #### [facility] of [address], [address] [place] [address] Clinical Immunologist: Homer Funes MDPlatelet mean volume (Bld) [Entitic vol]10.6 fLNormal7.5-12.5Quest DiagnosticsComment on above:Performed By: #### 7600, 6399, 78933 #### [facility] of [address], [address] [place] [address] Clinical Immunologist: Homer Funes MDPlatelets (Bld) [#/Vol]203 10*3/uLNormal 140-400Quest DiagnosticsComment on above:Performed By: #### 7600, 6399, 79935 #### [facility] of [address], [address] [place] [address] Clinical Immunologist: Homer Funes MDRBC (Bld) [#/Vol]4.63 10*6/uLNormal3.80-5.10 [facility]osticsComment on above:Performed By: #### 7600, 6399, 92433 #### [facility] of [address], [address] [place] [address] Clinical Immunologist: Homer Funes MDWBC (Bld) [#/Vol]7.1 10*3/uLNormal3.8-10.8 [facility] DiagnosticsComment on above:Performed By: #### 7600, 6399, 57591 #### [facility] of [place] [address] Clinical Immunologist: Homer Funes MDCOMPREHENSIVE METABOLIC PANELon 07-22-2024 Albumin [Mass/Vol]4.2 g/dLNormal3.6-5.1Quest DiagnosticsComment on above: Performed By: #### 7600, 6399, 79345 #### [facility] of [place] [address] Clinical Immunologist: Homer Funes MDAlbumin/Globulin [Mass ratio]1.6 {ratio}Normal 1.0-2.5Quest DiagnosticsComment on above:Performed By: #### 3440, 6399, 43907 #### [facility] of [place] [address] Clinical Immunologist: Homer Funes MDALP [Catalytic activity/Vol]81 U/TLanvkx34-791 [facility] DiagnosticsComment on above:Performed By: #### 7600, 6399, 96860 #### [facility] of [place] [address] Clinical Immunologist: Homer Funes MDALT [Catalytic activity/Vol]15 U/LNormal6-29 [facility] DiagnosticsComment on above:Performed By: #### 7600, 6399, 49877 #### [facility] of [place] [address] Clinical Immunologist: Homer Funes MDAST [Catalytic activity/Vol]22 U/HOlrxax93-46 [facility] DiagnosticsComment on above:Performed By: #### 7600, 6399, 42863 #### [facility] of [place] [address] Clinical Immunologist: Homer Funes MDBilirubin [Mass/Vol]0.9 mg/dLNormal0.2-1.2 [facility]osticsComment on above:Performed By: #### 7600, 6399, 04940 #### [facility] of [place] [address] Clinical Immunologist: Homer Funes MDCalcium [Mass/Vol]10.0 mg/dLNormal8.6-10.4 [facility]osticsComment on above:Performed By: #### 7600, 6399, 23500 #### [facility] of [place] [address] Clinical Immunologist: Homer Funes MDChloride [Moles/Vol]102 mmol/CZqwcjv97-297 [facility]osticsComment on above:Performed By: #### 7600, 6399, 82622 #### [facility] of [place] [address] Clinical Immunologist: Homer Funes MDCO2 [Moles/Vol]30 mmol/QVwgkjx28-35Bgzih DiagnosticsComment on above:Performed By: #### 7600, 6399, 14784 #### [facility] of [place] [address] Clinical Immunologist: Homer TAPIAreatinine [Mass/Vol]1.18 mg/dLHigh0.60-1.00 [facility]osticsComment on above:Performed By: #### 7600, 6399, 10264 #### [facility] of [place] [address] Clinical Immunologist: Homer Funes MDGFR/1.73 sq M.predicted among non-blacks MDRD (S/P/Bld) [Vol rate/Area]48 mL/min/{1.73_m2}Low> OR = 60Quest DiagnosticsComment on above:Performed By: #### 7600, 6399, 36732 #### [facility] of [place] [address] Clinical Immunologist: Homer Merati MDGlobulin (S) [Mass/Vol]2.6 g/dLNormal1.9-3.7 [facility] DiagnosticsComment on above:Performed By: #### 7600, 6399, 35058 #### [facility] [place] [address] Clinical Immunologist: Homer Funes MDGlucose [Mass/Vol]111 mg/uOErpg93-45Jzcfw DiagnosticsComment on above:Result Comment: Fasting reference interval For someone without known diabetes, a glucose value between 100 and 125 mg/dL is consistent with prediabetes and should be confirmed with a follow-up test.Performed By: #### 7600, 6399, 94348 #### [facility] [place] [address] Clinical Immunologist: Homer Funes MDPotassium [Moles/Vol]6.0 mmol/LHigh3.5-5.3 [facility]osticsComment on above:Performed By: #### 7600, 6399, 05008 #### [facility] [place] [address] Clinical Immunologist: Homer Funes MDProtein [Mass/Vol]6.8 g/dLNormal6.1-8.1Quest DiagnosticsComment on above:Performed By: #### 7600, 6399, 49213 #### [facility] [place] [address] Clinical Immunologist: Homer Funes MDSodium [Moles/Vol]138 mmol/XRoioow059-755Kfboy DiagnosticsComment on above:Performed By: #### 7600, 6399, 10878 #### [facility] [place] [address] Clinical Immunologist: Homer Funes MDUrea nitrogen [Mass/Vol]30 mg/dLHigh7-25Quest DiagnosticsComment on above:Performed By: #### 7600, 6399, 72266 #### [facility] [place] [address] Clinical Immunologist: Homer Funes MDUrea nitrogen/Creatinine [Mass ratio]25 mg/mg High6-22Quest DiagnosticsComment on above:Performed By: #### 7600, 6399, 51931 #### [facility] [address], [address] [place] [address] Clinical Immunologist: Homer Funes MDLIPID PANEL, STANDARD 35-13-8463Vmbbzomlsyy [Mass/Vol]153 mg/dLNormal<200Quest DiagnosticsComment on above:Order Comment: FASTING:NO PATIENT UNABLE TO VOID; ADVISED TO RETURN FOR COLLECTION. FASTING: NOPerformed By: #### 7600, 6399, 23374 #### [facility] [address], [address] [place] [address] Clinical Immunologist: Homer Funes MDCholesterol in HDL [Mass/Vol]57 mg/dLNormal> OR = 50Quest DiagnosticsComment on above:Order Comment: FASTING:NO PATIENT UNABLE TO VOID; ADVISED TO RETURN FOR COLLECTION. FASTING: NOPerformed By: #### 7600, 6399, 08658 #### [facility] [address], [address] [place] [address] Clinical Immunologist: Homer Funes MDCholesterol in LDL [Mass/Vol]77 mg/dLNormal [facility]osticsComment on above:Order Comment: FASTING:NO PATIENT UNABLE TO VOID; ADVISED TO RETURN FOR COLLECTION. FASTING: NOResult Comment: Reference range: <100 Desirable range <100 mg/dL for primary prevention; <70 mg/dL for patients with CHD or diabetic patients with > or = 2 CHD risk factors. LDL-C is now calculated using the Noreen calculation, which is a validated novel method providing better accuracy than the Friedewald equation in the estimation of LDL-C. Camden MONTANA et al. DARYA. 2013;310(19): 8537-4636 (http://education.JournalDoc.[employer] Power/faq/VMK628)Performed By: #### 1270, 6399, 39061 #### [facility] [address], [address] [place], [place] [address] Clinical Immunologist: Homer Juarezsterol.total/Cholesterol in HDL [Mass ratio]2.7 {ratio}Normal<5.0Quest DiagnosticsComment on above:Order Comment: FASTING:NO PATIENT UNABLE TO VOID; ADVISED TO RETURN FOR COLLECTION. FASTING: NOPerformed By: #### 7600, 6399, 43808 #### [facility] [address], [address] [place] [address] Clinical Immunologist: Homer ROSS HDL XGSFMLFBTKQ70 mg/dL (calc)Normal<130 [facility]osticsComment on above:Order Comment: FASTING:NO PATIENT UNABLE TO VOID; ADVISED TO RETURN FOR COLLECTION. FASTING: NOResult Comment: For patients with diabetes plus 1 major ASCVD risk factor, treating to a non-HDL-C goal of <100 mg/dL (LDL-C of <70 mg/dL) is considered a therapeutic option.Performed By: #### 8560, 6399, 56377 #### [facility] [address], [address] [place] [address] Clinical Immunologist: Homer Funes MDTriglyceride [Mass/Vol]111 mg/dLNormal<150 [facility]osticsComment on above:Order Comment: FASTING:NO PATIENT UNABLE TO VOID; ADVISED TO RETURN FOR COLLECTION. FASTING: NOPerformed By: #### 7600, 6399, 05368 #### [facility] [address], [address] [place] [address] Clinical Immunologist: Homer Funes MDKLICKITAT VALLEY [facility]ALTH W/REFLEX TO FT4on 84-72-9488LSY W/REFLEX TO FT42.27 mIU/LNormal0.40-4.50Quest DiagnosticsComment on above:Performed By: #### 6400, 6399, 47256 #### [facility] [address], [address] [place] [address] Clinical Immunologist: Homer Funes MDLaboratory - Hematology and Cell countson 70-26-6278IkY6k (Bld) [Mass fraction]5.6 %[facility] HospitalNo Panel Informationon 47-01-3590Bzpioobclfpjgq and review of laboratory resultsNoNew [facility] NOMS HealthcareOrders Onlyon 34-25-5338Bioaoc [id number] Isabella Horne 1950 F Date Provider Department Center 07/03/2024 [id number], HISTORICAL [facility] Family History Problem Relation Age of Onset Coronary artery disease Brother Family Status - Relation Status Age at Mother Father Sister Brother AliveNormalUniOhioHealth Grove City Methodist HospitalNM ANTONELLA PERF SPECT REST STR on 02-31-[place] [address] Nuclear Medicine Report Signed Patient: ISABELLA HORNE MR#: [id number] : 1950 Acct:[id number] Age/Sex: 74 / F ADM Date: 07/01/24 Loc: NM Attending Dr: Germania Helton M.D. Ordering Physician: Germania Helton M.D. Date of Service: 07/01/24 Procedure(s): NM antonella perf SPECT rest str Accession Number(s): [id number] cc: HONG SCHILLING ; Germania Helton M.D. Patient Name: ISABELLA HORNE MR#: [id number] : 1950 Exam Date: 07/01/2024 Ordering Doctor: [...] the study was pending per attending physician [facility]. For more details, please see separate cardiac [...] Signed By: 07/02/24 1638 DD/ 1637 TD/TT: Curer Acid Drum:TBHRadiology, Radiologist, - 07/02/2024 [place] [address] Nuclear Medicine Report Signed Patient: ISABELLA HORNE MR#: [id number] : 1950 Acct:[id number] Age/Sex: 74 / F ADM Date: 07/01/24 Loc: NM Attending Dr: Germania Helton M.D. Ordering Physician: Germania Helton M.D. Date of Service: 07/01/24 Procedure(s): NM antonella perf SPECT rest str Accession Number(s): [id number] cc: HONG SCHILLING ; Germania Helton M.D. Patient Name: ISABELLA HORNE MR#: [id number] : 1950 Exam Date: 07/01/2024 Ordering Doctor: [...] the study was pending per attending physician [facility]. For more details, please see separate cardiac [...] Signed By: 07/02/24 1638 DD/ 1637 TD/TT: Curer Acid Drum: ALY JuanRadiology Study observation (narrative)[facility] ANTONELLA PERF SPECT REST STROrdered By: Radiologist Radiology on 78-67-1047[facility] Work Phone: Office Visiton 86-77-0071Esfzfv-up [id number] Isabella Horne 1950 F Date Provider Department Center 06/25/2024 Iman-GERMANIA HELTON CARD [facility] Family History Problem Relation Age of Onset Coronary artery disease Brother Family Status - Relation Status Age at Mother Father Sister Brother Alive Level of Service:49656 AR OFFICE/OUTPATIENT ESTABLISHED MOD MDM 30 [facility] CenterAuditory function testson 93-91-1279Uhkmw Ear: 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 Ordering Physician: Germania Helton M.D. Date of Service: 05/15/24 Procedure(s): CA echo doppler complete Accession Number(s): [id number] cc: HONG SCHILLING ; Germania Helton M.D. ECHOCARDIOGRAM REPORT PROCEDURE: CA ECHO DOPPLER COMPLETE INDICATIONS: Chronic heart failure, CABGx4, CO, stroke, hypertension, diabetes COMPARISON: None. DESCRIPTION: COMPLETE [...] Area (VTI): 1.46 cm2, 1.46 cm2 Deceleration [place]: Pressure Half-Time: Peak Velocity(Antegrade Flow): 1.42 m/s [...] MD on 05/15/2024 a (more content not included)...[facility] Radiology, Radiologist, - 05/15/2024 [facility] [place] [facility] [address] [place] [address] Cardiology Report Signed Patient: ISABELLA HORNE MR#: [id number] : 1950 Acct:[id number] Age/Sex: 74 / F ADM Date: 05/15/24 Loc: CARD Attending Dr: Germania Helton M.D. Ordering Physician: Germania Helton M.D. Date of Service: 05/15/24 Procedure(s): CA echo doppler complete Accession Number(s): [id number] cc: HONG SCHILLING ; Germania Helton M.D. ECHOCARDIOGRAM REPORT PROCEDURE: CA ECHO DOPPLER COMPLETE INDICATIONS: Chronic heart failure, CABGx4, CO, stroke, hypertension, diabetes COMPARISON: None. DESCRIPTION: COMPLETE [...] Area (VTI): 1.46 cm2, 1.46 cm2 Deceleration [place]: Pressure Half-Time: Peak Velocity(Antegrade Flow): 1.42 m/s [...] 05/15/2024 at 19:14 Continued Report - Page [place] [address] Dictated By: Josselyn Galeano M.D. Signed By: 05/15/241914 DD/ 13 TD/TT: Curer Acid Drum: ALY JuanRadiology Study observation (narrative)ALY JuanCA ECHO DOPPLER COMPLETEOrdered By: Radiologist Radiology on 40-88-0051ZTCA [employer] Work Phone: mm diagnostic mammo BI w/CADon 88-31-1964PE diagnostic mammo BI [facility] [place] [address] [place] [address] Mammography Report Signed Patient: Isabella Horne MR#: [id number] : 1950 Acct:[id number] Age/Sex: 73 / F ADM Date: 11/26/23 Loc: OR Room: Type: [facility] Attending Dr: Bill Trammell DO Copies to: [...] Vanessa Alva M.D.11/26/2023 1:01 PM Dictation Location: [facility] Transcribed By: [facility] 11/26/23 1301 Dictated By: Vanessa Alva MD 11/26/23 1052 Signed By: 11/26/23 1301[facility] Physician GroupCT CHEST WO CONon 76-72-4063[place], [place] [address] CT Scan Report Signed Patient: ISABELLA HORNE MR#: [id number] : 1950 Acct:[id number] Age/Sex: 73 / F ADM Date: 03/30/23 Loc: CT Attending Dr: Jd Youngblood D.O. Ordering Physician: Jd Youngblood D.O. Date of Service: 03/30/23 Procedure(s): CT chest wo con Accession Number(s): [id number] cc: HONG SCHILLING [place] [id number] Patient Name: ISABELLA HORNE MRN: [id number] date: 1950 Sex: F Assigned Patient Location: CT Current Patient Location: CT Accession/Order Number: [id number] Exam Date: 03/30/2023 15:26 Report Date: 03/30/2023 [...] base. 2. No lymphadenopathy. Electronically authenticated by: EDWIN HARP Date: 03/30/2023 16:00 Dictated By: Edwin Harp M.D. Signed By: 03/30/23 1603 DD/ 1600 TD/TT: Curer Acid Drum:TBHRadiology, Radiologist, - 03/30/2023 [place] [address] CT Scan Report Signed Patient: ISABELLA HORNE MR#: [id number] : 1950 Acct:[id number] Age/Sex: 73 / F ADM Date: 03/30/23 Loc: CT Attending Dr: Jd Youngblood D.O. Ordering Physician: Jd Youngblood D.O. Date of Service: 03/30/23 Procedure(s): CT chest wo con Accession Number(s): [id number] cc: HONG SCHILLING [place] [id number] Patient Name: ISABELLA HORNE MRN: [id number] date: 1950 Sex: F Assigned Patient Location: CT Current Patient Location: CT Accession/Order Number: [id number] Exam Date: 03/30/2023 15:26 Report Date: 03/30/2023 [...] base. 2. No lymphadenopathy. Electronically authenticated by: EDWIN HARP Date: 03/30/2023 16:00 Dictated By: Edwin Harp M.D. Signed By: 03/30/23 1603 DD/ 1600 TD/TT: Curer Acid Drum: [facility] HealthcareRadiology Study observation (narrative)[facility] HospitalCT CHEST WO CONOrdered By: Radiologist Radiology on 58-84-4012ANDWRipley County Memorial Hospital Work Phone: MG MAMM MICHELE DIAG W CADon 99-84-9811EY MAMM MICHELE DIAG W CADPatient: ISABELLA HORNE Exam Date: 10/21/2021 : 1950 Gender:F Ordering : DR BILL TRAMMELL D.O. Admission #: [id number] Family : Order #: [id number] CLICK HERE TO VIEW EXAM RADIOLOGY REPORT [...] Treatments None Family Cancers None LOCATION: [facility] BREAST COMPOSITION: Heterogeneously dense,which may obscure [...] LUMP SHOULD BE BIOPSIED. Dictated by: Edwin Harp M.D. on 10/21/2021 at 14:35 Approved by: Edwin Harp M.D. on 10/21/2021 at 15:23[facility] HospitalLIBANNER BAYWO[facility] PROFILEon 92-10-6526Cbithjk [Mass/Vol]3.5 g/dLNormal3.4-5.0[facility] HospitalComment on above:Performed By: #### LIVER ####[facility] [address]ubviptgca[address] [place] [address]Dr. Krystal Lewis Albumin/Globulin [Mass ratio]0.9 {ratio}NormalThe [facility]acon[facility] HospitalComment on above:Performed By: #### LIVER ####[facility] Tabdvcrdlc[address] [place] [address]Dr. Krystal LewisALP [Catalytic activity/Vol]92 U/L Txgdnq71-883Rnm [facility] HospitalComment on above:Performed By: #### LIVER ####[facility] Sf[address] [place] [address]Dr. Krystal LewisALT [Catalytic activity/Vol]23 U/YJetchy94-39Pos [facility] Comment on above:Performed By: #### LIVER ####[facility] Hmvmoloego[address] [place] [address]Dr. Krystal LewisAST [Catalytic activity/Vol] 18 U/MAslxnc54-92Bfd [facility] HospitalComment on above:Performed By: #### LIVER ####[facility] Cikaxptumb[address] [place] [address]Dr. Krystal LewisBILI, CONJUGATED0.1 mg/dLNormal0.0-0.2The [facility] HospitalComment on above:Performed By: #### LIVER ####[facility] [address] [place], [place] [address]Ul. Yidonell ChangBilirubin [Mass/Vol]0.7 mg/dLNormal 0.2-1.0The [facility] HospitalComment on above:Performed By: #### LIVER ####[facility] [address] [place], [place] [address]Ix. Yilan ChangGlobulin (S) [Mass/Vol]3.7 g/dLNormACMC Healthcare SystemComment on above:Performed By: #### LIVER ####[facility] [address] [place], [place] [address]Jy. Yilan ChangProtein [Mass/Vol]7.2 g/dLNormal6.4-8.2 [facility] HospitalComment on above:Performed By: #### LIVER ####[facility] [address] [place] [address]Dr. Yilan ChangUS SINGLE QUAD RT UPPERon 83-98-0469DG SINGLE QUAD RT UPPEREXAM: US SINGLE QUAD RT UPPER HISTORY: . [...] Electronically authenticated by: JHONNY CAREY Date: 2021-04-18 10:16[facility] HospitalComplete Blood Count with Auto Diffon 77-41-4877Zvxlmgasr (Bld) [#/Vol]0.03 10*3/uLNormal0.00-0.20NortUniversity Hospitals Lake [facility] Center Medical SpecialistComment on above:Performed By: #### TSH reflex FT4, LIPD, CMP, CBCAD #### [facility] [address] [place], [place] [id number]/100 WBC (Bld)0.5 %[facility] SpecialistComment on above:Performed By: #### TSH reflex FT4, LIPD, CMP, CBCAD #### [facility] [address] [place], [place] [id number] (Bld) [#/Vol]0.26 10*3/uLNormal0.02-0.50NoMer[facility] Health [facility] SpecialistComment on above:Performed By: #### TSH reflex FT4, LIPD, CMP, CBCAD #### [facility] [address] [place], [place] [id number]/100 WBC (Bld)4.1 %[facility]ak[place] GardensNoMercy Health St[facility] SpecialistComment on above:Performed By: #### TSH reflex FT4, LIPD, CMP, CBCAD #### [facility] [address] [place], [place] [address]Bfvdtnhffuu distribution width (RBC) [Ratio]13.2 %Normal 11.0-15.0[facility] SpecialistComment on above:Performed By: #### TSH reflex FT4, LIPD, CMP, CBCAD #### [facility] [address] [place], [place] [id number] (Bld) [Volume fraction]46.2 %Smpykj86.0-47.0 [facility] Special[address]Com[address] j[facility] on above:Performed By: #### TSH reflex FT4, LIPD, CMP, CBCAD #### [facility] [address] [place], [place] [id number] (Bld) [Mass/Vol]14.4 g/wOJqktca28.6-15.5[facility] Children'S HospitalComment on above:Performed By: #### TSH reflex FT4, LIPD, CMP, CBCAD #### [facility] [address] [place], [place] [id number] (Bld) [#/Vol]1.1 10*3/uLNormal0.9-3.9NortSumma Health [facility] Campus SpecialistComment on above:Performed By: #### TSH reflex FT4, LIPD, CMP, CBCAD #### [facility] [address] [place], [place] [address]Zbmadjwehxf/100 WBC (Bld)17.5 %NormalSamaritan Hospital SpecialistComment on above:Performed By: #### TSH reflex FT4, LIPD, CMP, CBCAD #### [facility] [address] [place], [place] [id number] (RBC) [Entitic mass]30.3 knBuilih15.0-33.0NoMer[address] [facility] SpecialistComment on above:Performed By: #### TSH reflex FT4, LIPD, CMP, CBCAD #### [facility] [address] [place], [place] [id number] (RBC) [Mass/Vol]31.2 g/dLLow32.0-36.0NoMer[address] [facility] SpecialistComment on above:Performed By: #### TSH reflex FT4, LIPD, CMP, CBCAD #### [facility] [address] [place], [place] [id number] (RBC) [Entitic vol]97 jBEftkfo13-438Bgwswgzo [place] [facility] SpecialistComment on above:Performed By: #### TSH reflex FT4, LIPD, CMP, CBCAD #### [facility] [address] [place], [place] [id number] (Bld) [#/Vol]0.7 10*3/uLNormal0.2-0.9NoMer[address] [facility] SpecialistComment on above:Performed By: #### TSH reflex FT4, LIPD, CMP, CBCAD #### [facility] [address], [place] [id number]/100 WBC (Bld)11.8 %NormalNoMercy Health St. [facility] SpecialistComment on above:Performed By: #### TSH reflex FT4, LIPD, CMP, CBCAD #### [facility] [address], [place] [id number] (Bld) [#/Vol]4.1 10*3/uLNormal1.5-7.8NortSumma Health [facility] Campus SpecialistComment on above:Performed By: #### TSH reflex FT4, LIPD, CMP, CBCAD #### [facility] [address], [place] [id number]/100 WBC (Bld)65.6 %NormalNoMercy Health St. [facility] SpecialistComment on above:Performed By: #### TSH reflex FT4, LIPD, CMP, CBCAD #### [facility] [address], [place] [id number] mean volume (Bld) [Entitic vol]10.90 fLNormal 7.50-12.50NortSumma Health [facility] SpecialistComment on above:Performed By: #### TSH reflex FT4, LIPD, CMP, CBCAD #### [facility] [address], [place] [id number] (Bld) [#/Vol]212 10*3/sRJilxwh417-323Ccadeerg [place] [facility] SpecialistComment on above:Performed By: #### TSH reflex FT4, LIPD, CMP, CBCAD #### [facility] [address], [place] [id number] (Bld) [#/Vol]4.75 10*6/uLNormal3.90-5.20NortSumma Health [facility] SpecialistComment on above:Performed By: #### TSH reflex FT4, LIPD, CMP, CBCAD #### [facility] [address], [place] [id number]-ZH39.4 dFGetpyr73.0-50.0NortSumma Health Akron CampusSupervisor Calibration Comment on above:Performed By: #### TSH reflex FT4, LIPD, CMP, CBCAD #### [facility] [address], [place] [id number] (Bld) [#/Vol]6.3 10*3/uLNormal3.8-11.0Nortpage hospitaln [facility] SpecialistComment on above:Performed By: #### TSH reflex FT4, LIPD, CMP, CBCAD #### [facility] [address], [place] [id number] Metabolic Panelon 40-42-4241Ecoqngi [Mass/Vol] 4.1 g/dLNormal3.6-5.1NortherOhioHealth Shelby Hospital SpecialistComment on above:Performed By: #### TSH reflex FT4, LIPD, CMP, CBCAD #### [facility] [address], [place] [id number]/Globulin [Mass ratio]1.5 {ratio}Normal1.0-2.5Ak[facility] Children'S HospitalComment on above:Performed By: #### TSH reflex FT4, LIPD, CMP, CBCAD #### [facility] [address], [place] [id number] [Catalytic activity/Vol]125 U/BOcbn46-750WjkcbwosAdams County HospitalComment on above:Performed By: #### TSH reflex FT4, LIPD, CMP, CBCAD #### [facility] [address], [place] [id number] [Catalytic activity/Vol]43 U/LHigh6-33NoAdams County HospitalComment on above:Result Comment: 01/12/2021 Female reference range changed.Performed By: #### TSH reflex FT4, LIPD, CMP, CBCAD #### [facility] [address], [place] [id number] gap [Moles/Vol]20 mmol/BKhbvxv34-21Mvwvmbmu [place] [facility] SpecialistComment on above:Result Comment: Effective 02/17/2019 reference range changed.Performed By: #### TSH reflex FT4, LIPD, CMP, CBCAD #### [facility] [address], [place] [id number] [Catalytic activity/Vol]42 U/LHigh9-34NoMercy Health [facility] SpecialistComment on above:Result Comment: Specimen is hemolyzed. Results may be affected.Performed By: #### TSH reflex FT4, LIPD, CMP, CBCAD #### [facility] [address], [place] [id number] [Mass/Vol]0.41 mg/dLNormal0.30-1.20NoMercy Health [facility] SpecialistComment on above:Performed By: #### TSH reflex FT4, LIPD, CMP, CBCAD #### [facility] [address], [place] [id number]/CREA25 RatioHigh6-22NoMercy Health St[facility] Specialist Comment on above:Performed By: #### TSH reflex FT4, LIPD, CMP, CBCAD #### [facility] [address], [place] [id number] [Mass/Vol]10.3 mg/dLHigh8.6-10.2[facility] SpecialistComment on above:Performed By: #### TSH reflex FT4, LIPD, CMP, CBCAD #### [facility] [address], [place] [id number] [Moles/Vol]105 mmol/NYxcikg22-260Bfgqknrx [place] [facility] SpecialistComment on above:Performed By: #### TSH reflex FT4, LIPD, CMP, CBCAD #### [facility] [address], [place] [id number] [Moles/Vol]24 mmol/WLxpetm63-95Xvizcszp [place] [facility] SpecialistComment on above:Performed By: #### TSH reflex FT4, LIPD, CMP, CBCAD #### [facility] [address], [place] [id number] [Mass/Vol]1.2 mg/dLNormal0.6-1.4NoMercy Health St[facility] SpecialistComment on above:Performed By: #### TSH reflex FT4, LIPD, CMP, CBCAD #### [facility] [address], [place] [id number] mL/min/1.82r7Xqe>60NortUniversity Hospitals [facility] Supervisor Calibration Comment on above:Performed By: #### TSH reflex FT4, LIPD, CMP, CBCAD #### [facility] [address], [place] [id number] mL/min/1.68v5Juv>60NoMercy Health [facility] Specialist Comment on above:Performed By: #### TSH reflex FT4, LIPD, CMP, CBCAD #### [facility] [address], [place] [id number] (S) [Mass/Vol]2.8 g/dLNormal1.9-3.7NoMercy Health St[facility] SpecialistComment on above:Performed By: #### TSH reflex FT4, LIPD, CMP, CBCAD #### [facility] [address], [place] [id number] [Mass/Vol]118 mg/eXXgqi83-45Uiqdturi [place] [facility] SpecialistComment on above:Result Comment: For FASTING Glucose --- ADA reference ranges: Normal 65-99 mg/dl Prediabetes 100-125 Diabetes >/= 126Performed By: #### TSH reflex FT4, LIPD, CMP, CBCAD #### [facility] [address], [place] [id number] [Moles/Vol]5.5 mmol/LNormal3.5-5.5NoMercy Health St[facility] SpecialistComment on above:Result Comment: Specimen is hemolyzed. Results may be affected.Performed By: #### TSH reflex FT4, LIPD, CMP, CBCAD #### [facility] [address], [place] [id number] [Mass/Vol]6.9 g/dLNormal6.1-8.1NortherOhioHealth Shelby Hospital SpecialistComment on above:Performed By: #### TSH reflex FT4, LIPD, CMP, CBCAD #### [facility] [address], [place] [id number] [Moles/Vol]143 mmol/PCjufue054-235Rpnsdvdi [place] [facility] SpecialistComment on above:Performed By: #### TSH reflex FT4, LIPD, CMP, CBCAD #### [facility] [address], [place] [id number] nitrogen [Mass/Vol]29 mg/dLHigh7-25NortSumma Health [facility] SpecialistComment on above:Performed By: #### TSH reflex FT4, LIPD, CMP, CBCAD #### [facility] [address], [place] [id number] Panelon 80-66-2913Yqtzsdxhvnb [Mass/Vol]155 mg/dLNormal 125-200NoMercy Health St[facility] SpecialistComment on above:Result Comment: Low risk < 200mg/dL Borderline risk 201-239 mg/dl High risk > or equal to 240Performed By: #### TSH reflex FT4, LIPD, CMP, CBCAD #### [facility] [address], [place] [id number] in HDL [Mass/Vol]52 mg/dLNormal>40NoMercy Health St[facility] SpecialistComment on above:Result Comment: High Cardiovascular Risk HDL <40 mg/dL Low Cardiovascular Risk HDL > or equal to 60 mg/dlPerformed By: #### TSH reflex FT4, LIPD, CMP, CBCAD #### [facility] [address], [place] [id number] in LDL [Mass/Vol]80 mg/dLNormalSamaritan Hospital SpecialistComment on above:Result Comment: LDL ATP III CLASSIFICATION LDL less than 100 mg/dl Optimal LDL 100-129 mg/dl Near or above optimal LDL 130-159 Borderline high LDL 160-189 High LDL greater than 189 mg/dl Very HighPerformed By: #### TSH reflex FT4, LIPD, CMP, CBCAD #### [facility] [address], [place] [id number] in VLDL [Mass/Vol]23 mg/dLNormKettering Health SpecialistComment on above:Performed By: #### TSH reflex FT4, LIPD, CMP, CBCAD #### [facility] [address], [place] [id number].total/Cholesterol in HDL [Mass ratio]3 {ratio} NormalNoMercy Health St. [facility] SpecialistComment on above:Performed By: #### TSH reflex FT4, LIPD, CMP, CBCAD #### [facility] [address], [place] [id number] [Mass/Vol]114 mg/oZCiharn70-162Xxngrref [facility] SpecialistComment on above:Result Comment: TRIG ATPIII CLASSIFICATIONS TRIG less than 150 mg/dl Normal TRIG 150-199 mg/dl Borderline High TRIG 200-500 mg/dl High TRIG greather than 500 mg/dl Very HighPerformed By: #### TSH reflex FT4, LIPD, CMP, CBCAD #### [facility] [address], [place] [id number] w/ Reflex to Free T4on 99-12-5073OAI3.830 uIU/mLNormal 0.400-4.500[facility] SpecialistComment on above:Performed By: #### TSH reflex FT4, LIPD, CMP, CBCAD #### [facility] [address], [place] [id number] Auto (Bld) [#/Vol]Ordered By: Tru Urbina on 36-43-1048Bheimkned (Bld) [#/Vol]0.0 10*3/uL0.0-0.2FMemorial HospitalBasophils/100 WBC Auto (Bld)Ordered By: Tru Urbina on 03-15-2021 Basophils/100 WBC (Bld)0.2 %[facility]Bl[facility] hemoglobin measurement (mass/volume)Ordered By: rTu Urbina on 61-33-4582Srflszmayl (Bld) [Mass/Vol]14.2 g/dL11.8-15.4FMemorial HospitalBlood leukocytes automated count (number/volume)Ordered By: Tru Urbina on 95-59-6712UTQ (Bld) [#/Vol]8.8 10*3/uL4.5-11.0[facility] Eosinophils Auto (Bld) [#/Vol]Ordered By: Tru Urbina on 03-15-2021 Eosinophils (Bld) [#/Vol]0.1 10*3/uL0.0-0.45[facility] Eosinophils/100 WBC Auto (Bld)Ordered By: Tru Urbina on 03-15-2021 Eosinophils/100 WBC (Bld)0.8 %[facility] HamiltonErythrocyte distribution width Auto (RBC) [Ratio]Ordered By: Tru Urbina on 03-15-2021 Erythrocyte distribution width (RBC) [Ratio]13.3 %11.9-15.3FMemorial HospitalGlucose Glucometer (BldC) [Mass/Vol]Ordered By: Bill Trammell on 75-18-1542Wuvwfzp [Mass/Vol]115 mg/dLKettering Health HamiltonComment on above:Random Glucose Reference Range is dependent on time and content of last meal. Glucose of more than 200 mg/dL in a nonstressed, ambulatory subject supports the diagnosis of Diabetes Mellitus.Hematocrit Auto (Bld) [Volume fraction]Ordered By: Tru Urbina on 55-44-6677Zwmbjerwmw (Bld) [Volume fraction]42.6 %34.0-46.4FMemorial HospitalLaboratory - Hematology and Cell countsOrdered By: Tru Urbina on 03-67-1281Vtdgcbcvt RBC/100 WBC (Bld) [Ratio]0.1 %0-0.5FMemorial HospitalLymphocytes Auto (Bld) [#/Vol]Ordered By: Tru Urbina on 54-16-2087Mcemzhfaoht (Bld) [#/Vol]0.9 10*3/uL1.00-4.8[facility] HamiltonLymphocytes/100 WBC Auto (Bld) Ordered By: Tru Urbina on 42-75-3335Wiutwndpdmj/100 WBC (Bld)10.4 % [facility]H Auto (RBC) [Entitic mass]Ordered By: Tru Urbnia on 97-45-8862KIG (RBC) [Entitic mass]31.0 pg24.7-34.3FMemorial HospitalMCHC Auto (RBC) [Mass/Vol]Ordered By: Tru Urbina on 54-12-6882OCCX (RBC) [Mass/Vol]33.2 g/dL32.0-35.0[facility] HamiltonMCV Auto (RBC) [Entitic vol]Ordered By: Tru Urbina on 61-09-4399UZC (RBC) [Entitic vol]93.4 yZ09-703BkghrwtmmKettering Health HamiltonMonocytes Auto (Bld) [#/Vol]Ordered By: Tru Urbina on 93-11-3551Oijuqtqed (Bld) [#/Vol]1.1 10*3/uL0.0-0.8[facility] HamiltonMonocytes/100 WBC Auto (Bld) Ordered By: Tru Urbina on 71-44-7146Cniwhllav/100 WBC (Bld)12.4 %[facility] HamiltonNeutrophils Auto (Bld) [#/Vol]Ordered By: Tru Urbina on 53-92-5996Ocmzeecdgtf (Bld) [#/Vol]6.7 10*3/uL1.8-7.7FMemorial HospitalNeutrophils/100 WBC Auto (Bld)Ordered By: Tru Urbina on 75-02-3623Hcobarseark/100 WBC (Bld)76.2 %[facility] HamiltonNo Panel InformationOrdered By: Bill Trammell on 99-75-5561Verkzzd Glucose CommentGlu2: cleaned meterKettering Health HamiltonPlatelet mean volume Auto (Bld) [Entitic vol]Ordered By: Tru Urbina on 03-90-5284Jsymoocl mean volume (Bld) [Entitic vol]8.6 fL6.3-10.7FMemorial Hospital Platelets Auto (Bld) [#/Vol]Ordered By: Tru Urbina on 99-62-3619Qmyymxsia (Bld) [#/Vol]171 10*3/gD146-841MojixuxviKettering Health HamiltonRBC Auto (Bld) [#/Vol]Ordered By: Tru Urbina on 36-95-7922TEG (Bld) [#/Vol]4.57 10*6/uL 3.60-5.00[facility] HamiltonCreatinine and Glomerular filtration rate.predicted panel (S/P/Bld)Ordered By: Alpesh Lind on 02-22-2021 Creatinine [Mass/Vol]1.10 mg/dL0.44-1.03[facility] Estimated glomerular filtration rate (GFR) non- AmericanOrdered By: Alpesh Lind on 34-00-7059TYK/1.73 sq M.predicted among non-blacks MDRD (S/P/Bld) [Vol rate/Area]49 mL/MinKettering Health HamiltonNo Panel InformationOrdered By: Alpesh Lind on 38-74-6888Fzzdumron GFR ()59 mL/MinKettering Health HamiltonComment on above:GFR estimated reference range: According to KDOQI guidelines, <60 ml/min/1.73m2 is sufficient todiagnose a patient with chronic kidney disease.Pharmacy Creatinine Clearance (Chem43.28[facility] Hospitalerum or plasma calcium measurement (mass/volume)Ordered By: Alpesh Lind on 86-80-5907Ayjbrwe [Mass/Vol]10.0 mg/dL8.2-10.2FSelect Medical Specialty Hospital - Trumbullerum or plasma chloride measurement (moles/volume)Ordered By: Alpesh Lind on 02-22-2021 Chloride [Moles/Vol]104 mmol/S07-103FzsdxnqcqTriHealth Bethesda North Hospitalerum or plasma glucose measurement (mass/volume)Ordered By: Alpesh Lind on 96-00-9561Cbagdkv [Mass/Vol]110 mg/xD04-877IonkvbpomKettering Health Hamilton Comment on above:ADA recommended reference rangeRandom Glucose Reference Range is dependent on time and content of last meal. Glucose of more than 200 mg/dL in a nonstressed, ambulatory subject supports the diagnosisof Diabetes Mellitus. Serum or plasma potassium measurement (moles/volume)Ordered By: Alpesh Lind on 24-53-9678Rifstprqy [Moles/Vol]4.5 mmol/L3.5-5.1FSelect Medical Specialty Hospital - Trumbullerum or plasma sodium measurement (moles/volume)Ordered By: Alpesh Lind on 15-85-3880Skkovd [Moles/Vol]139 mmol/Z319-607MfqvlufvdTriHealth Bethesda North Hospitalerum or plasma total carbon dioxide measurement (moles/volume)Ordered By: Alpesh Lind on 05-09-6857SO0 [Moles/Vol]24.4 mmol/L22.0-30.0[facility] Hospitalerum or plasma urea nitrogen measurement (mass/volume)Ordered By: Alpesh Lind on 86-17-6170Ydrd nitrogen [Mass/Vol]26 mg/dL9[facility] HamiltonPROF 14(COMP METB)on 80-11-0917Mebojes [Mass/Vol]3.3 g/dLCritically low3.5-5.0The [facility] HospitalComment on above:Performed By: #### CMP ####[facility] [address] [address]Dr.Krystal Lewis Albumin/Globulin [Mass ratio]0.9 {ratio}NormalThe [facility]acon[facility] HospitalComment on above:Performed By: #### CMP ####[facility] [address] [place], [place] [address]Dr.Krystal LewisALP [Catalytic activity/Vol]87 U/LNormal 38-126The [facility] HospitalComment on above:Performed By: #### CMP ####[facility] Hzkdrlfofr[address] [place], [place] [address]Dr.Krystal LewisALT [Catalytic activity/Vol]18 U/LNormal9-52The [facility] HospitalComment on above: Performed By: #### CMP ####[facility] J[address] [place], [place] [address]Dr.Krystal LewisAnion gap [Moles/Vol]10.8 mmol/LNormal The [facility] HospitalComment on above:Performed By: #### CMP ####[facility] Mrihriflro[address] [place], [place] [address]Dr.Krystal ChangAST [Catalytic activity/Vol]16 U/ICxffmm05-76Ust [facility] HospitalComment on above: Performed By: #### CMP ####[facility] P[address]cs[address] [place], [place] [address]Dr.Krystal LewisBilirubin [Mass/Vol]0.5 mg/dLNormal 0.2-1.3The [facility] HospitalComment on above:Performed By: #### CMP ####[facility] Lybsjb[address]jh[address] [place], [place] [address]Dr.Krystal Lewis Calcium [Mass/Vol]9.8 mg/dLNormal8.4-10.2The [facility] HospitalComment on above: Performed By: #### CMP ####[facility] H[address] [place], [place] [address]Dr.Yilan ChangChloride [Moles/Vol]104 mmol/LNormal 98-107The [facility] HospitalComment on above:Performed By: #### CMP ####[facility] Wbtgwiqwmn[address] [place], [place] [address]Dr.Yilan ChangCO2 [Moles/Vol]29.8 mmol/XQyhytz87.0-30.0The [facility] HospitalComment on above: Performed By: #### CMP ####[facility] Ytd[address]rlyam[address] [place], [place] [address]Dr.Yilan ChangCreatinine [Mass/Vol]1.01 mg/dLNormal 0.52-1.04The [facility] HospitalComment on above:Performed By: #### CMP ####[facility] Anmknmhvzv[address] [place], [place] [address]Dr. Yilan ChangEGFR-AF ALBANIAN>60Normal>=60The [facility]acon[facility] HospitalComment on above: Performed By: #### CMP ####[facility] Ucsgfrft[address] [place], [place] [address]Dr.Yilan ChangEGFR-NON AF IVLSYNRN36 mL/min/1.73m2 Critically low>=60The [facility] HospitalComment on above:Performed By: #### CMP ####[facility] Txwyfxak[address] [place], [place] [address]Dr. Yilan ChangGlobulin (S) [Mass/Vol]3.5 g/dLNormalThe [facility] HospitalComment on above:Performed By: #### CMP ####[facility] Arnty[address]ont[address] [place], [place] [address]Dr.Yilan ChangGlucose [Mass/Vol]93 mg/xRYkdegv57-697 The [facility] HospitalComment on above:Performed By: #### CMP ####[facility] C[address]fad[address]cb[address] [place], [place] [address]Dr.Yilan Lewis Potassium [Moles/Vol]4.6 mmol/LNormal3.4-5.0The [facility] HospitalComment on above:Performed By: #### CMP ####[facility] [address] [address]Dr.Yilan ChangProtein [Mass/Vol]6.8 g/dLNormal6.1-8.2 The [facility] HospitalComment on above:Performed By: #### CMP ####[facility] [address] [address]Dr.Yilan ChangSodium [Moles/Vol]140 mmol/QZzleut751-828Wem [facility] HospitalComment on above: Performed By: #### CMP ####[facility] Hazrlucsng[address] [place], [place] [address]Dr.Yilan ChangUrea nitrogen [Mass/Vol]27.0 mg/dL Critically high7.0-17.0The [facility] HospitalComment on above:Performed By: #### CMP ####[facility] [address] [place], [place] [address]Dr. Yilan ChangUrea nitrogen/Creatinine [Mass ratio]26.7 mg/mgNormalThe [facility] HospitalComment on above:Performed By: #### CMP ####[facility] [address] [place], [place] [address]Dr.Yilan ChangCARDIAC STRESS TESTon 77-46-3750AERDDAG STRESS TESTThe [place], [place] NAME: ISABELLA HORNE DATE OF : MEDICAL REC#: [id number] RESEARCH DEVELOPMENT DIRECTOR: [id number] IRINA ABDULLAHI ADMIT DATE: 01/24/2021 08:17:00 STAFF WRITER DATE: 01/24/2021 11:00 DICTATING PHYSICIAN: CHRISTINA BARROSO [...] Christina Barroso MD on 01/24/2021 07:09 PM EST IF Signed and Approved by: DR CHRISTINA BARROSO 01/24/2021 19:09:00[facility] STRESS/REST MULTIon 01-24-2021 NM STRESS/REST MULTIPatient: ISABELLA HORNE Exam Date: 01/24/2021 : 1950 Gender:F Ordering : DR GERMANIA HELTON M.D. Admission #: [id number] Family : Order #: [id number] CLICK HERE TO VIEW EXAM RADIOLOGY REPORT [...] PERFUSION DEFECT: LOCATION: Mid-anterior. Mid-anteroseptal. Apical anterior. [place]. SIZE: Medium (3-4 segments). SEVERITY: Severe. TYPE: Persistent. WALL MOTION: Akinesis: Mid-anterior. [place]. LV SIZE: Normal. 107 mL. TID / [...] by: Jhonny Salas MD on 01/24/2021 at 14:05[facility] PROF CHEM 8 (BAS METB)on 04-43-5851Xcxku gap [Moles/Vol]14.1 mmol/LNormalMain Campus Medical CenterComment on above:Performed By: #### BMP #### [facility] [address] [place] [address] Dr. Krystal LewisCalcium [Mass/Vol]10.0 mg/dLNormal8.4-10.2[facility] Comment on above:Performed By: #### BMP #### [facility] [address] [place] [address] Dr. Krystal LewisChloride [Moles/Vol]105 mmol/XAuduar81-427ByvMain Campus Medical Center Comment on above:Performed By: #### BMP #### [facility] [address] [place] [address] Dr. Krystal LewisCO2 [Moles/Vol]26.0 mmol/SGmtnaz82.0-30.0[facility] Comment on above:Performed By: #### BMP #### [facility] [address] [place] [address] Dr. Krystal LewisCreatinine [Mass/Vol]1.18 mg/dLCritically high0.52-1.04The [facility] HospitalComment on above:Performed By: #### BMP #### [facility] [address] [place] [address] Dr. Rice ChangEGFR-AF LRPMNTHZ70 mL/min/1.98z9Xdpzvsfiwo low>=60The [facility] HospitalComment on above:Performed By: #### BMP #### [facility] [address] [address] [address] Krystal RamGFR-NON AF HULHIKQG75 mL/min/1.89v7Erlztxzkxk low>=60The [facility] [address] Hospitalment on above:Performed By: #### BMP #### [facility] [address] [address] [address] Krystal LewisGlucose [Mass/Vol]104 mg/ySPvevwa45-252Oev [facility] Comment on above:Performed By: #### BMP #### [facility] [address] [address] [address] Krystal LewisPotassium [Moles/Vol]5.1 mmol/LCritically high3.4-5.0The [facility] HospitalComment on above:Performed By: #### BMP #### [facility] [address] [address] [address] Krystal LewisSodium [Moles/Vol]140 mmol/TAvfzqd218-483Bcn [facility] Comment on above:Performed By: #### BMP #### [facility] [address] [address] [address] Krystal LewisUrea nitrogen [Mass/Vol]29.0 mg/dLCritically high7.0-17.0The [facility] HospitalComment on above:Performed By: #### BMP #### [facility] [address] [address] [address] Krystal Padilla nitrogen/Creatinine [Mass ratio]24.6 mg/mgNormalThe [facility] HospitalComment on above:Performed By: #### BMP #### [facility] [address] [address] [address] Krystal Whatley 35-24-0671Vnjfuxokptu peptide B (Bld) [Mass/Vol]1293.0 pg/mLCritically high<=900.0The [facility] HospitalComment on above:Result Comment: TEST REPEATED CRITICAL VALUE VERIFIEDPerformed By: #### CMADM, BNP, CMP, CRP ####[facility] [address] [address]Dr. Krystal LopezAC ALFREDO ADMITon 15-06-2869GP [Catalytic activity/Vol]86 U/L Mcased61-224Slc [facility] HospitalComment on above:Performed By: #### CMADM, BNP, CMP, CRP ####[facility] [address] [address]Dr. Krystal LewisCK.MB [Mass/Vol]ng/mLNormal<=2.37The [facility] Comment on above:Performed By: #### CMADM, BNP, CMP, CRP ####[facility] [address] [address]Dr. Krystal LewisBsurnHJXHWT52.5 pg/mLNormal4.0-35.5The [facility] HospitalComment on above:Result Comment: CUT-OFF POINTS HAVE BEEN ESTABLISHED BASED ON THE FOURTH UNIVERSAL DEFINITIONS OF MY OCARDIAL INFARCTION. THE UPPER REFERENCE LIMIT (URL) OF TROPONIN, DEFINED THE 99TH PERCENTILE OF cTnI DISTRIBUTION IN A REFERENCE POPULATION, HAS BEEN CONFIRMED THE DECISION THRESHOLD FOR CO DIAGNOSIS.Performed By: #### CMADM, BNP, CMP, CRP ####[facility] [address] [address]Dr. Krystal LewisMYO77.0 ng/mL Critically high<=61.5The [facility] HospitalComment on above:Performed By: #### CMADM, BNP, CMP, CRP ####[facility] [address] [address]Dr. Krystal PatelC AUTO DIFFon 70-71-4126TIYN #0.0 103/ulNormal0.0-0.1The [facility] HospitalComment on above:Performed By: #### CBC #### [facility] [address] [address] [address] Krystal Koehlersophils/100 WBC (Bld)0.2 %Normal0.2-2.0The [facility] Comment on above:Performed By: #### CBC #### [facility] [address] [place] [address] Dr. Krystal Crane #0.0 103/ulNormal0.0-0.7The Julia HospitalComment on above: Performed By: #### CBC #### [facility] [address] [place] [address] Dr. Krystal Ramosinophils/100 WBC (Bld)0.0 %Critically low0.9-7.0The [facility]acon[facility] HospitalComment on above:Performed By: #### CBC #### [facility] [address] [place] [address] Dr. Krystal Ramrythrocyte distribution width (RBC) [Ratio]13.1 %Cbvcub78.0-15.0 The [facility]aconess HospitalComment on above:Performed By: #### CBC #### [facility] [address] [place], [place] [address] Dr. Krystal LewisHematocrit (Bld) [Volume fraction]43.0 %Pulwvw03.0-48.0The [facility] HospitalComment on above:Performed By: #### CBC #### [facility] [address] [place] [address] Dr. Krystal LewisHemoglobin (Bld) [Mass/Vol]13.9 g/tFPcshpf54.0-16.0The [facility] HospitalComment on above:Performed By: #### CBC #### [facility] [address] [place] [address] Dr. Krystal Mc #0.03 10e3/ulNormal0.00-0.03The [facility] HospitalComment on above:Performed By: #### CBC #### [facility] [address] [place] [address] Dr. Krystal Mc %0.7 %Critically high0.0-0.5The [facility] HospitalComment on above:Performed By: #### CBC #### [facility] [address] [place] [address] Dr. Krystal GentileH #0.6 103/ulCritically low1.2-3.8[facility] on above:Performed By: #### CBC #### [facility] [address] [place] [address] Dr. Krystal Givensmphocytes/100 WBC (Bld)13.8 %Critically low20.5-60.0The [facility] HospitalComment on above:Performed By: #### CBC #### [facility] [address] [place] [address] Dr. Krystal Hinojosa DIFF REQNONormalThe [facility] HospitalComment on above: Performed By: #### CBC #### [facility] [address] [place] [address] Dr. Krystal Hughes (RBC) [Entitic mass]30.6 pgCanwse85.7-34.0The [facility] HospitalComment on above:Performed By: #### CBC #### [facility] [address] [place] [address] Dr. Krystal Hughes (RBC) [Mass/Vol]32.3 g/iBLeedjf40.9-35.2The [facility] HospitalComment on above:Performed By: #### CBC #### [facility] [address] [place] [address] Dr. Krystal Hughes (RBC) [Entitic vol]94.7 eFVbcsaw33.0-99.0The [facility] HospitalComment on above:Performed By: #### CBC #### [facility] [address] [place] [address] Dr. Krystal Knott #0.4 103/ulNormal0.3-0.8The [facility] HospitalComment on above:Performed By: #### CBC #### [facility] [address] [place] [address] Dr. Krystal Brownocytes/100 WBC (Bld)9.4 %Normal1.7-12.0The [facility] Comment on above:Performed By: #### CBC #### [facility] [address] [place] [address] Dr. Krystal Barbosa #3.3 103/ulNormal1.4-6.5The [facility] HospitalComment on above:Performed By: #### CBC #### [facility] [address] [place] [address] Dr. Krystal Montesinosutrophils/100 WBC (Bld)75.9 %Critically high43.0-75.0The [facility] HospitalComment on above:Performed By: #### CBC #### [facility] [address] [place] [address] Dr. Krystal Li mean volume (Bld) [Entitic vol]10.3 fLNormal9.5-13.5The [facility] HospitalComment on above:Performed By: #### CBC #### [facility] [address] [place] [address] Dr. Krystal ChandT128 103/ulCritically iao883-802Zjp [facility] HospitalComment on above:Performed By: #### CBC #### [facility] [address] [place] [address] Dr. Krystal LewisRBC4.54 106/ulNormal4.20-5.40The [facility] HospitalComment on above:Performed By: #### CBC #### [facility] [address] [place] [address] Dr. Krystal LewisWBC4.3 103/ulNormal4.0-11.0The [facility] HospitalComment on above: Performed By: #### CBC #### [facility] [address] [place] [address] Dr. Krystal Wolf 09-31-7330GMY1.4 mg/dLCritically high<=1.0The [facility] HospitalComment on above:Performed By: #### CMADM, BNP, CMP, CRP #### [facility] [address] [place] [address] Dr. Krystal Rogers 14(COMP METB)on 35-00-1957Ztwuaem [Mass/Vol]2.9 g/dL Critically low3.5-5.0The [facility] HospitalComment on above:Performed By: #### CMADM, BNP, CMP, CRP #### [facility] [address] [place] [address] Dr. Krystal LewisAlbumin/Globulin [Mass ratio]0.7 {ratio}NormalThe [facility] HospitalComment on above:Performed By: #### CMADM, BNP, CMP, CRP #### [facility] [address] [address] [address] Krystal Simeon [Catalytic activity/Vol]54 U/OOwweep23-770Vel [facility] [address] Hospitalment on above:Performed By: #### CMADM, BNP, CMP, CRP #### [facility] [address] [place] [address] Dr. Krystal Epstein [Catalytic activity/Vol]18 U/LNormal9-52The [facility] Comment on above:Performed By: #### CMADM, BNP, CMP, CRP #### [facility] [address] [place] [address] Dr. Krystal Barnett gap [Moles/Vol]14.4 mmol/LNormalThe [facility] Comment on above:Performed By: #### CMADM, BNP, CMP, CRP #### [facility] [address] [place] [address] Dr. Krystal Patino [Catalytic activity/Vol]36 U/ZCabuuh42-56Pao [facility] HospitalComment on above:Performed By: #### CMADM, BNP, CMP, CRP #### [facility] [address] [place] [address] Dr. Krystal LewisBilirubin [Mass/Vol]0.7 mg/dLNormal0.2-1.3The [facility] Comment on above:Performed By: #### CMADM, BNP, CMP, CRP #### [facility] [address] [place] [address] Dr. Krystal LewisCalcium [Mass/Vol]9.3 mg/dLNormal8.4-10.2[facility] Comment on above:Performed By: #### CMADM, BNP, CMP, CRP #### [facility] [address] [place] [address] Dr. Krystal LewisChloride [Moles/Vol]98 mmol/OPwilka03-508Rqf [facility] Comment on above:Performed By: #### CMADM, BNP, CMP, CRP #### [facility] [address] [place] [address] Dr. Krystal LewisCO2 [Moles/Vol]27.7 mmol/TJrbtbf51.0-30.0The [facility] Comment on above:Performed By: #### CMADM, BNP, CMP, CRP #### [facility] [address] [address] [address] Krystal LewisCreatinine [Mass/Vol]1.23 mg/dLCritically high0.52-1.04The [facility] HospitalComment on above:Performed By: #### CMADM, BNP, CMP, CRP #### [facility] [address] [address] [address] Rice ChangEGFR-AF EPBEQCTJ67 mL/min/1.21v0Uhofslgfco low>=60The [facility] HospitalComment on above:Performed By: #### CMADM, BNP, CMP, CRP #### [facility] [address] [address] [address] Krystal RamGFR-NON AF MLBQQZHY68 mL/min/1.69o2Ikaczvzsbj low>=60The [facility] HospitalComment on above:Performed By: #### CMADM, BNP, CMP, CRP #### [facility] [address] [address] [address] Krystal LewisGlobulin (S) [Mass/Vol]4.1 g/dLNormalThe [facility] HospitalComment on above:Performed By: #### CMADM, BNP, CMP, CRP #### [facility] [address] [address] [address] Krystal LewisGlucose [Mass/Vol]154 mg/dLCritically glnq64-190Pnd [facility] HospitalComment on above:Performed By: #### CMADM, BNP, CMP, CRP #### [facility] [address] [address] [address] Krystal LewisPotassium [Moles/Vol]4.1 mmol/LNormal3.4-5.0The [facility] Comment on above:Performed By: #### CMADM, BNP, CMP, CRP #### [facility] [address] [address] [address] Krystal LewisProtein [Mass/Vol]7.0 g/dLNormal6.1-8.2The [facility] Comment on above:Performed By: #### CMADM, BNP, CMP, CRP #### [facility] [address] [address] [address] Krystal LewisSodium [Moles/Vol]136 mmol/LCritically gpx229-146Wdu [facility] HospitalComment on above:Performed By: #### CMADM, BNP, CMP, CRP #### [facility] [address] [address] [address] Krystal LewisUrea nitrogen [Mass/Vol]32.0 mg/dLCritically high7.0-17.0The [facility] HospitalComment on above:Performed By: #### CMADM, BNP, CMP, CRP #### [facility] [address] [address] [address] Krystal Padilla nitrogen/Creatinine [Mass ratio]26.0 mg/mgNoSamaritan North Health CenterComment on above:Performed By: #### CMADM, BNP, CMP, CRP #### [facility] [address] [place] [address] Dr. Krystal LewisXR CHEST 1 Von 41-88-6236MX CHEST 1 VEXAMINATION: XR CHEST 1 V HISTORY: SHORTNESS OF BREATH COMPARISON: [...] Electronically authenticated by: JHONNY SALAS Date: 2020-11-20 13:55NoSamaritan North Health CenterAUD - Assessmentson 19-73-4515OJQ - Assessments [id number]#1.00CD:127NormHiramBaltimore VA Medical CenterCoding Summary.on 64-10-0470Isvgmt Summary.CODING DATE: 10/27/2019 FINAL [facility] STATUS: PAYOR: Medicare APC DESCRIPTION 5722 [...] Swapna Jay CphT Date Saved: 10/27/2019 03:37 [facility] HospitalOutside Records Officeon 30-31-4244Vqxmbji Records Office [id number]#1.00CD:[address] [place], [place] [address]AUD - Orderson 61-90-7671CNE - Orders [id number]#1.00CD:[address] [place], [place] [address]AUD - Otheron 61-97-6736DEM - Other [id number]#1.00CD:[address] [place], [place] [address]Cons[place] 64-15-6527Damzwhw [id number]#1.00CD:[address] [place], [place] [address]Outside Records Officeon 37-23-5525Puwnlfp Records Office [id number]#1.00CD:[address] [place] [address] Vital Signs Date TimeVital SignValuePerforming JyekmkvpzIarhkoxb03-69-1618 13:36-0400Body .6 Fazal Lopez DPM Work Phone: [facility] HospitalDdrdmktbad48-26-5925 13:36-0400Body mass index (BMI) [Ratio]29.18 kg/n0IorljhvAriel Lopez DPM Work Phone: [facility] HospitalSvpxptksco49-44-7584 13:36-0400Body .11 kgAriel Lopez DPM Work Phone: NO[facility] HospitalAjvmqvsesv59-40-7509 15:05-0400Body .6 Norma Schilling MD Work Phone: NO[facility] HospitalRzrjqibdnv01-01-5759 15:05-0400Body mass index (BMI) [Ratio]29.18 kg/v4BpqgtHong Schilling MD Work Phone: NO[facility] HospitalPibxzvabqg74-31-2592 15:05-0400Body .11 kgHong Schilling MD Work Phone: NO[facility] HospitalGthjrragwv74-62-5115 15:05-0400Diastolic blood yqmeyzqi93 mm[Hg]Hong Schilling MD Work Phone: NO[facility] HospitalUfxcciqmdh35-30-4312 15:05-0400Heart rate56 /min Hong Schilling MD Work Phone: NO[facility] HospitalRiggvmrftc87-19-4033 15:05-0814NpA0% (BldA) [Mass fraction]96 %Hong Schilling MD Work Phone: NO[facility] HospitalVirjhwpvvw00-87-7870 15:05-0400Systolic blood qxsebtds504 mm[Hg]Hong Schilling MD Work Phone: NO[facility] HospitalMhjywumzgt97-12-2096 13:39-0400Body pnapoq701.6 Norma Schilling MD Work Phone: NO[facility] HospitalRgzgdfcsuo10-87-4088 13:39-0400Body mass index (BMI) [Ratio]29.35 kg/r3HnnbpHong Schilling MD Work Phone: NO[facility] HospitalVzawkoyjmb64-32-5462 13:39-0400Body .56 kgHong Schilling MD Work Phone: [address] [address]Zqdivjaarf59-77-4518 13:39-0400Diastolic blood dfbxbfir17 mm[Hg]Hong Schilling MD Work Phone: [address] [address]Zyfcripiin53-29-7684 13:39-0400Heart rate62 /min Hong Schilling MD Work Phone: [facility] HospitalTfdsyfesjo72-77-5486 13:39-0400Respiratory rate16 /minHong Schilling MD Work Phone: [facility] HospitalHdqzeatscq78-10-1795 13:39-9646XtR9% (BldA) [Mass fraction]96 %Hong Schilling MD Work Phone: [facility] HospitalVbihjzltos42-89-8834 13:39-0400Systolic blood gkyqcwpv144 mm[Hg]Hong Schilling MD Work Phone: 1(275)385-[address] [place], [place] [address]Qaookgszlm40-93-8840 11:01-0400Body zkecmw474.6 cmAthelmazunilda Boswellher DPM Work Phone: [facility] HospitalFmdficqpeu95-44-4352 11:01-0400Body mass index (BMI) [Ratio]27.98 kg/l7Hphoadu Rusher DPM Work Phone: [facility] HospitalVkazttecmq90-10-9398 11:01-0400Body uijolw67.94 kgAnthony Rusher DPM Work Phone: [facility] HospitalOmtpsabidp94-77-3793 10:46-0400Body .6 Norma Schilling MD Work Phone: 1(744)138-[address] [place], [place] [address]Qgvhayitzx81-88-3037 10:46-0400Body mass index (BMI) [Ratio]27.98 kg/j6XbyseHong Schilling MD Work Phone: [facility] HospitalWfegcyhvdp35-11-3464 10:46-0400Body degehq14.94 kgHong Schilling MD Work Phone: 1(244)001-[address] [place], [place] [address]Olmsmxmzjs52-90-9054 10:46-0400Diastolic blood silalbxz51 mm[Hg]Hong Schilling MD Work Phone: 1(836)228-[address] [place], [place] [address]Kpivsqsmmg72-83-2217 10:46-0400Heart rate75 /min Hong Schilling MD Work Phone: 1(455)377-[address] [place], [place] [address]Mbkynqucpe25-36-1703 10:46-2684MiR9% (BldA) [Mass fraction]99 %Hong Schilling MD Work Phone: [facility] HospitalCvosmpsdbw97-93-8714 10:46-0400Systolic blood eayewefu818 mm[Hg]Hong Schilling MD Work Phone: [facility] HospitalRhkynnnkvs18-32-9280 13:39-0400Body dbclpo269.6 cmAnthony Rusher DPM Work Phone: [facility] HospitalAxuuxycqku78-89-5327 13:39-0400Body mass index (BMI) [Ratio]28.15 kg/g8Vhjuclc Rusher DPM Work Phone: [facility] HospitalHyiexycmmu70-88-5409 13:39-0400Body bmqvri64.39 kgAnthony Rusher DPM Work Phone: [facility] HospitalRnkmaupifk12-92-2838 11:23-0400Body epfbuq376.6 Umer Carcamo MD Work Phone: [facility] HospitalUnbebcfbaw97-83-4865 11:23-0400Body mass index (BMI) [Ratio]28.32 kg/k3NfnnceJamila Carcamo MD Work Phone: [facility] HospitalIchcrbykyj92-05-5949 11:23-0400Body pbppup82.84 kgJamila Carcamo MD Work Phone: [facility] HospitalXarnwvpxcj38-92-8091 11:23-0400Diastolic blood frekjqnh05 mm[Hg]Jamila Carcamo MD Work Phone: [facility] HospitalFizjmzwfnm44-42-2969 11:23-0400Heart rate84 /min Jamila Carcamo MD Work Phone: [facility] HospitalYkeecxwtze54-44-7108 11:23-0400Systolic blood oyjumvtx20 mm[Hg]Jamila Carcamo MD Work Phone: [facility] HospitalPfijuylxan59-27-6363 13:38-0500Body odwzgp270.6 cmAnthony Rusher DPM Work Phone: [facility] HospitalMsrqixojmf15-14-0212 13:38-0500Body mass index (BMI) [Ratio]28.32 kg/e7Vfomwuy Rusher DPM Work Phone: [facility] HospitalSenpcelhgy14-99-2807 13:38-0500Body sivgcg06.84 kgAnthony Rusher DPM Work Phone: 1(777)952-[address] [place], [place] [address]Qvysbywvsw19-95-0494 09:16-0500Body akxegr914.6 cmFredric Itzkowitz DO Work Phone: 1(148)[facility]03[facility] HospitalEccuwxpknb04-82-4998 09:16-0500Body mass index (BMI) [Ratio]26.61 kg/w7Yshakbw Itzkowitz DO Work Phone: 1(931)[facility] [place], [place] [address]Ykmhcsgjnv64-31-3063 09:16-0500Body jndazm45.31 kgFredric Itzkowitz DO Work Phone: 1(028)[address] [place], [place] 180[address]11-21-2024 09:16-0500Diastolic blood sdgnmoko58 mm[Hg]Bill Itzkowitz DO Work Phone: 1(687)[facility] [place], [place] [address]Hkgetxuwic13-26-7949 09:16-0500Systolic blood axtpsrok472 mm[Hg]Bill Itzkowitz DO Work Phone: 1(405)[address] [place], [place] 180[address]10-30-2024 15:27-0400Body .6 cmAnthony Rusher DPM Work Phone: 1(517)[address] [place], [place] [address]10-30-2024 15:27-0400Body mass index (BMI) [Ratio]25.92 kg/g1Avlpael Rusher DPM Work Phone: 1(644)[address] [place], [place] [address]10-30-2024 15:27-0400Body .49 kgAnthony Rusher DPM Work Phone: 1(484)[address] [place], [place] [address]02-14-2022 11:12-0500Body vzqkfrvteik89 [degF]MD Hong Schilling Work Phone: [facility]02-14-2022 11:12-0500 Body mkxecy31.58 kgMD Hong Schilling Work Phone: [facility]02-14-2022 11:12-0500 Diastolic blood smqaklut84 mm[Hg]MD Hong Schilling Work Phone: [facility]02-14-2022 11:12-0500 Heart rate80 /minMD Rugtorres Corsica Work Phone: 1(290)[address]02-14-2022 11:12-0500 Respiratory rate20 /minMD Rugtorres Tonie Work Phone: 1(092)[address]02-14-2022 11:12-0500 SaO2% (BldA) [Mass fraction]99 %MD Hong Schilling Work Phone: 1(847)[address]02-14-2022 11:12-0500 Systolic blood qnsqkrla782 mm[Hg]MD Hong Schilling Work Phone: 1(338)[address]02-01-2022 15:30-0500 Diastolic blood vaqzzjak41 mm[Hg]MD Hong Schilling Work Phone: 1(817)[address]02-01-2022 15:30-0500 Heart rate67 /minMD Pitts Tonie Work Phone: 1(196)[address]02-01-2022 15:30-0500 Respiratory rate16 /minMD Rugtorres Tonie Work Phone: 1(238)[address]02-01-2022 15:30-0500 SaO2% (BldA) [Mass fraction]96 %MD Hong Schilling Work Phone: 1(730)[address]02-01-2022 15:30-0500 Systolic blood mm[Hg]MD Hong Schilling Work Phone: 1(709)[address]02-01-2022 12:36-0500 Body jccklozdzzy62.6 [degF]MD Hong Schilling Work Phone: 1(443)[address]02-01-2022 12:36-0500 Inhaled oxygen flow rate8 L/minMD Pitts Corsica Work Phone: 1(221)[address]02-01-2022 11:17-0500 Body sexheh059.56 cmMD Hong Schilling Work Phone: 1(634)[address]02-01-2022 11:17-0500 Body mass index (BMI) [Ratio]25.7 kg/m2MD Rugen Tonie Work Phone: 1(406)[address] [place], [place] 7594302-01-2022 11:17-0500 Body ioygch12.03 kgMD Rugtorres Tonie Work Phone: 1(591)[address] [place], [place] [address]01-11-2022 14:37-0500 Diastolic blood gxwiakhc69 mm[Hg]MD Hong Schilling Work Phone: 1(959)[address] [place], [place] [address]01-11-2022 14:37-0500 Heart rate68 /minMD Rugtorres Corsica Work Phone: 1(028)[address] [place], [place] [address]01-11-2022 14:37-0500 Respiratory rate16 /minMD Rugtorres Tonie Work Phone: 1(508)[address] [place], [place] [address]01-11-2022 14:37-0500 SaO2% (BldA) [Mass fraction]97 %MD Hong Schilling Work Phone: 1(043)[address] [place], [place] [address]01-11-2022 14:37-0500 Systolic blood gzimnagz662 mm[Hg]MD Hong Schilling Work Phone: 1(923)[address] [place], [place] [address]01-11-2022 13:52-0500 Inhaled oxygen flow rate6 L/minMD Rugtorres Tonie Work Phone: 1(487)[address] [place], [place] [address]01-11-2022 12:14-0500 Body mass index (BMI) [Ratio]25 kg/m2MD Rugen Corsica Work Phone: 1(509)[address] [place], [place] [address]01-11-2022 11:11-0500 Body wvuvvk553.56 cmMD Rugtorres Corsica Work Phone: 1(474)[address] [place], [place] [address]01-11-2022 11:11-0500 Body .22 kgMD Rugtorres Tonie Work Phone: 1(488)[address] [place], [place] [address]01-11-2022 10:19-0500 Body nrovjjgcwts23.1 [degF]MD Hong Schilling Work Phone: [facility]11-19-2021 15:13-0500 Body .56 cmMD Hong Schilling Work Phone: [facility] Encounters Encounter DateEncounter TypeCare ProviderFacilityStart: 12-16-2024 End: 80-89-7836Nmhris Cipriano Forman MD Work Phone: [facility] NEUROLOGYStart: 12-16-2024 End: 40-12-7098Wokfho Cipriano Forman MD Work Phone: [facility] BM NEUROLOGYStart: 10-22-2024 End: 61-33-5367Jbwnra flowsheetAnthony S Rusher DPM Work Phone: [facility] [place] PodiatryStart: 10-22-2024 End: 71-06-7969[facility]hs[facility] flowsheetAnthony S Rusher DPM Work Phone: [facility]t PodiatryStart: 10-22-2024 End: 32-60-6172hcvdowbsqmGVEDWPB S RUSHERNot AvailableStart: 10-22-2024 End: 01-41-8074Nsjfysk encounter procedureAnthony S Rusher DPM Work Phone: [facility] [place] PodiatryComment on above:Onychodystrophy (Primary Dx); Onychomycosis; Type II or unspecified type diabetes mellitus with neurological manifestations, not stated as uncontrolled(250.60) ([facility])Start: 10-06-2024 End: 68-34-5277Cncato outpatient visit 25 minutesHong Schilling MD Work Phone: [facility] MedinceComment on above:Infection of index finger (Primary Dx); Swelling of index fingerStart: 10-06-2024 End: 84-94-6094gjlrmyeuxkLUCKW M ALDANot AvailableStart: 10-06-2024 End: 98-77-4682Xtmgkq Lisa Schilling MD Work Phone: [facility] MedinceStart: 10-06-2024 End: 93-28-7829Ychqwb Lisa Schilling MD Work Phone: [facility] MedinceStart: 10-01-2024 End: 86-30-6769uzldnfsgqrFRWAARK RUSHERNot AvailableStart: 10-01-2024 End: 12-59-5072Angtzyr encounter procedureNoms Sh Aud Audiology Aid - Saima DodrillNOMS John AudiologyComment on above:Asymmetrical sensorineural hearing loss (Primary Dx)Start: 09-23-2024 End: 34-86-4155Bebuln Lisa Schilling MD Work Phone: [facility] MedinceStart: 09-23-2024 End: 55-54-4221Cvohikjarocho Schilling MD Work Phone: [facility] MedinceStart: 09-23-2024 End: 20-26-0355fhomnmodkwDTECQ M ALDANot AvailableStart: 09-23-2024 End: 95-44-2766Xkjdbw outpatient visit 25 minutesHong Schilling MD Work Phone: [facility] MedinceComment on above:Infection of index finger (Primary Dx); Chronic kidney disease, stage 3a ([facility])Start: 09-17-2024 End: 31-63-9732vodkqnepffOMVWAZF RUSHERNot AvailableStart: 09-17-2024 End: 23-92-9156Lgzbseh encounter procedureNoms Sh Aud Audiology Aid - Saima DodrillNOMS John AudiologyComment on above:Asymmetrical sensorineural hearing loss (Primary Dx)Start: 08-25-2024 End: 44-62-0668Pcqwagugb encounterAnthherve Lopez DPM Work Phone: n[facility] PODIATRYComment on above:Advice Only (Keeping DM shoes)Start: 08-18-2024 End: 00-94-7022Eafwgx Clementina Muller [facility] Work Phone: noms CI AUDStart: 08-18-2024 End: 56-19-2944Dncsqk flowsheetDeharvey Muller [facility] Work Phone: noMS CI AUDStart: 08-18-2024 End: 05-28-9272Clgbruqt SupportDeharvey Muller [facility] Work Phone: n[facility] CI AUDComment on above:Asymmetrical sensorineural hearing loss (Primary Dx)Start: 08-08-2024 End: 37-18-6427Avzlbo flowsheetAnthony S Rusher DPM Work Phone: [facility] PODIATRYStart: 08-08-2024 End: 07-69-4023Ujifqt flowsheetAnthony S Rusher DPM Work Phone: [facility] PODIATRYStart: 08-08-2024 End: 69-98-0033vfnlbgyswzHJSGHJU S RUSHERNot AvailableStart: 08-08-2024 End: 86-04-0843Sargnn follow up visit related to original pxAnthony S Rusher DPM Work Phone: noms PODIATRYComment on above:Type II or unspecified type diabetes mellitus with neurological manifestations, not stated as uncontrolled(250.60) (HCC) (Primary Dx); Hammer toe of left foot; Corns and callosities; Contracture of toe of left foot; Peripheral vascular diseaseStart: 07-22-2024 End: 98-34-3461dflzqkgzmcWDUUXLO S RUSHERNot AvailableStart: 07-22-2024 End: 03-13-2641Yxvitx flowsheetAnthony S Rusher DPM Work Phone: [facility] PODIATRYStart: 07-22-2024 End: 60-92-7974Fgzdwy flowsheetAnthony S Rusher DPM Work Phone: [facility] PODIATRYStart: 07-22-2024 End: 95-88-3239Ekzjsb follow up visit related to original pxAnthony S Rusher DPM Work Phone: noms PODIATRYComment on above:Type II or unspecified type diabetes mellitus with neurological manifestations, not stated as uncontrolled(250.60) (CMS/HCC) (Primary Dx); Hammer toe of left foot; Corns and callosities; Contracture of toe of left foot; Peripheral vascular disease (CMS/HCC)Start: 07-21-2024 End: 79-46-7405Wfhofj Lisa Schilling MD Work Phone: noms CI FMStart: 07-21-2024 End: 45-17-4144Yontwj Lisa Schilling MD Work Phone: noms CI FMStart: 07-21-2024 End: 95-60-1467Nfmqe of hemosiderin, Kimani Schilling MD Work Phone: noms HealthcareStart: 07-21-2024 End: 01-77-8369Mgszhlr encounter Bailey Schilling MD Work Phone: noms CI FMComment on above:Routine general medical examination at health care facility (Primary Dx); Medicare annual wellness visit, subsequent; Acquired hypothyroidism (CMS/HCC); Type 2 diabetes mellitus with peripheral vascular disease (CMS/HCC); Hypercholesterolemia (CMS/HCC); Hyperlipidemia, unspecified hyperlipidemia type (CMS/HCC); Type 2 diabetes mellitus with foot ulcer (CODE); Non-pressure chronic ulcer of other part of left foot with fat layer exposed; Pulmonary hypertension, unspecified (CMS/HCC); Type 2 diabetes mellitus with diabetic chronic kidney disease (CMS/HCC); Chronic kidney disease, stage 3a (HCC) (CMS/HCC); Cardiomyopathy, unspecified; Other cardiomyopathies; Chronic diastolic (congestive) heart failure; Chronic systolic (congestive) heart failure; Hypertensive heart disease with heart failure (CMS/HCC); Unspecified systolic (congestive) heart failure (CMS/HCC); Vascular dementia, unspecified severity, without behavioral disturbance, psychotic disturbance, mood disturbance, and anxiety (CMS/HCC)Start: 07-21-2024 End: 82-05-6430qhqvaznmkcEUMHL M ALDANot AvailableStart: 07-16-2024 End: 51-44-8148Tfehly Paulina Lopez DPM Work Phone: noms PODIATRYStart: 07-16-2024 End: 17-15-0602Qhvxbf Paulina Lopez DPM Work Phone: noMS PODIATRYStart: 07-16-2024 End: 61-51-6904kjtzqvqaxvBEXJNCU S RUSHERNot AvailableStart: 07-16-2024 End: 82-41-1914Fhoaba outpatient visit 15 minutesAriel Lopez DPM Work Phone: noms PODIATRYComment on above:Type II or unspecified type diabetes mellitus with neurological manifestations, not stated as uncontrolled(250.60) ([facility]) (Primary Dx); Onychodystrophy; Onychomycosis; Hammer toe of left foot; Corns and callosities; Contracture of toe of left foot; Peripheral vascular disease ([facility])Start: 07-03-2024 End: 50-68-9981aqmifppafbWNNYVEC H Simon AvailableStart: 07-02-2024 End: 92-10-0821Ayiyzrclo Result EncounterGeneric External Data ProviderNOMS External Department UnsolicitedStart: 07-02-2024 End: 69-10-4843Swqbkcalq Result EncounterGeneric External Data ProviderNOMS External Department UnsolicitedStart: 06-25-2024 End: 20-70-7853kqhjdutkjdJKDU [facility] Hospitaltart: 06-17-2024 End: 26-38-0288Bebjvm Ciara Carcamo MD Work Phone: NOMS CI ENTStart: 06-17-2024 End: 67-09-5587Frkvyn flowsCecilio Carcamo MD Work Phone: noms CI ENTStart: 06-17-2024 End: 08-20-8465Umolql outpatient new 30 minutesJamila Carcamo MD Work Phone: noms CI ENTComment on above:Asymmetric SNHL (sensorineural hearing loss)Start: 06-17-2024 End: 29-15-8690pcswesjabxWFPONL H TIMMISNot AvailableStart: 06-13-2024 End: 44-50-5739Nsxvgp flowsElmerswedish medical center cherry hillhyun Choi [facility] Work Phone: [facility] AUDStart: 06-13-2024 End: 41-02-7010Gfetjt flowsDenisha Choi [facility] Work Phone: [facility] AUDStart: 06-13-2024 End: 63-85-4034Jhjxlbov SupportDeharvey Choi [facility] Work Phone: no[facility] AUDComment on above:Asymmetrical sensorineural hearing loss (Primary Dx); Impaired auditory discrimination, rightStart: 05-15-2024 End: 38-61-4954Jnbruecax Result EncounterGeneric External Data ProviderNOMS External Department UnsolicitedStart: 05-15-2024 End: 46-16-9441Acvmnbgcl Result EncounterGeneric External Data ProviderNOMS External Department UnsolicitedStart: 04-14-2024 End: 26-86-0789Fecdoo flowsheetAnthony S Rusher DPM Work Phone: [facility] PODIATRYStart: 04-14-2024 End: 83-81-8785Srzokg flowsheetAnthony S Rusher DPM Work Phone: [facility] PODIATRYStart: 04-14-2024 End: 50-72-0881dxtnnjnxbeCDZSAEH S RUSHERNot AvailableStart: 04-14-2024 End: 60-64-5897Fnkwbi outpatient visit 15 minutesAnthony S Rusher DPM Work Phone: [facility] PODIATRYComment on above:Type II or unspecified type diabetes mellitus with neurological manifestations, not stated as uncontrolled(250.60) ([facility]) (Primary Dx); Onychodystrophy; OnychomycosisStart: 01-09-2024 End: 84-12-1802qprrcwycdhYFLOVNB S RUSHERNot AvailableStart: 01-09-2024 End: 83-42-5533Vtkmtf outpatient visit 25 minutesAnthony S Rusher DPM Work Phone: no[facility] PODIATRYComment on above:Type II or unspecified type diabetes mellitus with neurological manifestations, not stated as uncontrolled(250.60) (CMS/HCC) (Primary Dx); Hammer toe of left foot; Contracture of toe of left foot; Corns and callositiesStart: 01-03-2024 End: 30-41-7601Xivrvd outpatient visit 25 minutesFredric H Itzkowitz DO Work Phone: noms GENSComment on above:Malignant neoplasm of central portion of right breast in female, estrogen receptor negative (CMS/HCC) (Primary Dx)Start: 01-03-2024 End: 33-87-7594tybcxwogqwUVMNJIJ H ITZKOWITZNot AvailableStart: 12-12-2023 End: 28-18-1755akkrujealfXROHBOW S MARCELLOHERNot AvailableStart: 12-12-2023 End: 74-69-4417Goafye outpatient visit 25 minutesAriel Lopez DPM Work Phone: [facility] PODIATRYComment on above:Type II or unspecified type diabetes mellitus with neurological manifestations, not stated as uncontrolled(250.60) (CMS/HCC) (Primary Dx); Ulcer of left foot with fat layer exposed (CMS/HCC); Hammer toe of left foot; Contracture of toe of left foot; Peripheral vascular disease (CMS/HCC)Start: 12-12-2023 End: 01-00-9382Mfszer flowsheetAnthony S Marcelloher DPM Work Phone: NOMS PODIATRYStart: 12-12-2023 End: 37-21-4953Yffgpr flowsheetAnthony S Marcelloher DPM Work Phone: NOMS PODIATRYStart: 11-26-2023 End: 89-34-3012Bagaqpr encounter procedureMD Hong Schilling Work Phone: [facility] Work Phone: Start: 11-26-2023 End: 87-35-7821riijtkpuytVurdbwu ItzkotelmaFacility:[facility] Hospitaltart: 87-00-5206Tnnmtrr encounter procedureAnthherve Lopez DPWilmar Work Phone: [facility] HealthcareStart: 03-30-2023 End: 37-89-2983Kmnnzdmvc Result EncounterGeneric External Data ProviderNOMS External Department UnsolicitedStart: 03-30-2023 End: 48-43-5319Nctvzejib Result EncounterGeneric External Data ProviderNOMS External Department UnsolicitedStart: 10-21-2021 End: 81-09-2907corraqtblhVW RUGTORRES ALDAFacility:Z8Tjulw: 07-13-2021 End: 83-08-1738tgruzzayooVCQL K ALAFITAFacility:J0Ggweu: 05-18-2021 End: 10-60-1571Vliefpp encounter procedureMD Hong Tonie Work Phone: [facility] Strub RdStart: 04-18-2021 End: 90-33-5428clrpuqmrjkET RUGTORRES ALDAFacility:G8Cpnpc: 74-98-5602Igxewsozfm RecurringMD Rugen Corsica Work Phone: [facility] CenterStart: 03-15-2021 End: 36-12-8122Ddrsvyswt to same day surgery centerMD Rugen Tonie Work Phone: [facility] CampusStart: 02-22-2021 End: 62-74-7434Kwxddrqmo to same day surgery centerMD Rugtorres Tonie Work Phone: [facility] Main CampusStart: 02-09-2021 End: 98-55-7421qxizckbbrtSD GERMANIA ELTAHAWYFacility:Z1Mvnxq: 01-24-2021 End: 52-59-6117tjxzvcbvvsRS JHONNY SALASFacility:L7Bpkdw: 11-20-2020 End: 63-31-1678njrrkwdcneBF JUAN PAYFacility:Z2Iktml: 11-18-2020 End: 99-53-4178uiictcyvayAY JHONNY Franks WESTFacility:Q6Wlzrj: 07-17-2017 End: 66-00-8049GvtvprpgqaFXIWFCQ PHYSICIANFacility:[facility] Procedures DateProcedureProcedure DetailPerforming ClinicianStart: 11-55-7606Qguxslmept glycosylated a1gVqzzxHong Schilling MD Work Phone: Start: 47-05-4376QO ANTONELLA PERF SPECT REST STRGeneric External Data ProviderStart: 86-48-2757NHXTGSZJ FUNCTION TESTSDefranciscan health Jimbo Westford CCC-A Work Phone: start: 23-15-3450FM ECHO DOPPLER COMPLETEGeneric External Data ProviderStart: 45-24-0341Gomppkdny mammographyMD Hong Corsica Work Phone: Start: 39-54-2640Jtpwjjg of coronary artery bypass graftingHx of CABGHialeisha Carcamo MD Work Phone: Start: 99-32-1195JI CHEST WO CONGeneric External Data ProviderStart: 90-87-2673HjcpsdtwwwtTwspsic John DPM Work Phone: Start: 62-46-2486Sdclacxi resonance cholangiopancreatographyMD Hong Corsica Work Phone: Start: 86-46-7785Xqsyjgltdx of right breastMD Hong Corsica Work Phone: Start: 89-96-9673Lgyvfpnzzwo of right breast specimen MD Hong Schilling Work Phone: Start: 08-56-6109Mchryifmms of right breastMD Rugen Corsica Work Phone: Start: 87-26-1959Aqtkzekl of cystMD Rugtorres Corsica Work Phone: Start: 25-03-6165Gtekwablkrua sentinel lymph node studyMD Hong Tonie Work Phone: Start: 26-69-1965Leypjsidwzu of right breastMD Rugen Corsica Work Phone: Start: 69-34-5465Nkatqtafcjjmrwu guided needle localization of lesion of right breastMD Rugen Tonie Work Phone: History of coronary artery bypass graftingHx of CABGMD Hong Schilling Work Phone: Plan of Treatment DateCare ActivityDetailAuthorStart: 50-12-8287Esbugqhic for malignant neoplasm of colonNOMS HealthcareStart: 31-47-7162Hvhqyxca screeningDiabetes: Retinopathy ScreeningNOMS HealthcareStart: 06-09-2026Medicare Annual Wellness (AWV)Medicare Annual Wellness (AWV)NOMS HealthcareStart: 04-01-2025 End: 37-53-9802Sbpuqfi encounter cgbwjrjhy59/18/2026 11:00 AM EST [facility] [address] [place] [address] NOMS Lopez AudiologyStart: 52-68-1745Rugkwjuc screeningDiabetes: Retinopathy ScreeningNOMS HealthcareStart: 01-28-2025 End: 80-32-7478Skypgdz encounter kpnojwuqy65/17/2025 2:15 PM EST Procedure Visit [facility] [address] [place] [address] Ariel Lopez, DPM [address] [place], [place] [id number] [facility] [place] PodiatryStart: 01-05-2025 End: 21-22-2670Khicwfu encounter procedureNOMS GENSStart: 12-16-2024 End: 82-57-7375Fnlmbax encounter procedureNOMS [facility] Comment on above:ArrivedStart: 10-22-2024 End: 29-07-7775Stiavce encounter procedureNOMS PODIATRYStart: 10-21-2024 Hemoglobin A1c measurementDiabetes: Hemoglobin T4DMGCX HealthcareStart: 71-20-3782IAKUI-19 Vaccine ( season)COVID-19 Vaccine ( season)NOMS HealthcareStart: 55-05-4983Ylhqmuzqm vaccinationNOOH Healthcare Start: 10-06-2024 End: 16-78-8726Ntwvtlu encounter qszwtiimg35/25/2025 3:00 PM EDT [facility] [address] [facility] [address] [place] [address] Hong Schilling MD [address] [place] [address] ArrivedNOMS [place] Molina MedinceComment on above:ArrivedStart: 10-01-2024 End: 73-52-3079Jkdfsna encounter procedureNOMS CI AUDStart: 09-17-2024 End: 22-58-5261Eqhbosy encounter ckifqupfr56/06/2025 10:00 AM EDT Office Visit [facility] AUD [address] [facility] [address] [place] [address] [phone] CI AUDStart: 08-29-2024 End: 11-16-7119Ybppvmd encounter tygpaozme27/18/2025 10:00 AM EDT Office Visit [facility] [address] [place] [address] Ariel Lopez, DPM [address] [facility] [place] [address] NOMS PODIATRYStart: 08-18-2024 End: 69-27-8588Pmlgpyvf Rqawdnz9408/18/2024 10:15 AM EDT Clinical Support [facility] AUD [address] [facility] [address] [place] [address] Yanni Muller, [facility] [address] [facility] [place] [address] NOMS CI AUDStart: 63-86-5105Mqdiu screening for protein Diabetes: Urine Protein ScreeningNOOH HealthcareStart: 07-21-2024 End: 71-71-9986XCG W Auto Differential panel - BloodCBC and differential Lab Routine Medicare annual wellness visit, subsequent Acquired hypothyroidism (CMS/HCC) Type 2 diabetes mellitus with peripheral vascular disease (CMS/HCC) Hypercholesterolemia (CMS/HCC) Hyperlipidemia, unspecified hyperlipidemia type (CMS/HCC) Expected: 07/21/2024 (Approximate), Expires: 07/21/2025[facility] Healthcare Work Phone: Comment on above:Expected: 07/21/2024 (Approximate), Expires: 07/21/2025Start: 07-21-2024 End: 13-78-6757Wlhjvbvvzunoh metabolic 2000 panel - Serum or PlasmaComprehensive metabolic panel Lab Routine Medicare annual wellness visit, subsequent Acquired hypothyroidism (CMS/HCC) Type 2 diabetes mellitus with peripheral vascular disease (CMS/HCC) Hypercholesterolemia (CMS/HCC) Hyperlipidemia, unspecified hyperlipidemia type (CMS/HCC) Expected: 07/21/2024 (Approximate), Expires: 07/21/2025[facility] HealthcareComment on above:Expected: 07/21/2024 (Approximate), Expires: 07/21/2025Start: 07-21-2024 End: 31-71-9978Pjkle 1996 panel - Serum or PlasmaLipid panel Lab Routine Medicare annual wellness visit, subsequent Hypercholesterolemia (CMS/HCC) Hy perlipidemia, unspecified hyperlipidemia type (CMS/HCC) Expected: 07/21/2024 (Approximate), Expires: 07/21/2025[facility] HealthcareComment on above:Expected: 07/21/2024 (Approximate), Expires: 07/21/2025Start: 07-21-2024 End: 98-14-8329Lrlnqnophqki/Creatinine panel in random UrineMicroalbumin / creatinine urine ratio Lab Routine Medicare annual wellness visit, subsequent Type 2diabetes mellitus with peripheral vascular disease (CMS/HCC) Expected: 07/21/2024 (Approximate), Expires: 07/21/2025[facility] HealthcareComment on above: Expected: 07/21/2024 (Approximate), Expires: 07/21/2025Start: 07-21-2024 End: 95-46-6487PUU W/REFLEX TO FT4TSH W/REFLEX TO FT4 Lab Routine Medicare annual wellness visit, subsequent Acquired hypothyroidism (CMS/HCC) Expected: 07/21/2024 (Approximate), Expires: 07/21/2025[facility] HealthcareComment on above: Expected: 07/21/2024 (Approximate), Expires: 07/21/2025Start: 07-21-2024 End: 53-08-6811Gsxzbpm encounter procedureNOMS CI FMComment on above:Arrived Start: 06-04-2025Medicare Annual Wellness (AWV)Medicare Annual Wellness (AWV) NOM HealthcareStart: 07-16-2024 End: 12-16-8962Ybnfipz encounter cpqunujfb91/04/2025 1:30 PM EDT Procedure Visit [facility] [address] [place] [address] Ariel Lopez DPM [address] [place] [address] [facility] PODIATRYStart: 07-03-2024 End: 72-35-5322Qxsueyy encounter avzbehqjr03/22/2025 10:30 AM EDT Office Visit [facility] [address] [phone] Bill Trammell DO [address] [facility] [address] [place] [address] GENSStart: 06-17-2024 End: 30-16-0764Sazealy encounter procedureNOMS CI ENTComment on above:Hearing loss associated with syndrome of both earsStart: 06-13-2024 End: 07-78-2181Npwjpirt SupportNOMS SH AUDComment on above:ArrivedStart: 04-14-2024 End: 38-89-6134Zhrnotp encounter /03/2025 1:30 PM EST Procedure Visit [facility] [address] [place] [address] Ariel Lopez DPM [address] [place] [address] [facility] PODIATRYStart: 20-22-4370Dqkmhbyx screeningDiabetes: Retinopathy ScreeningNOOH HealthcareStart: 01-09-2024 End: 81-37-7818Vobibax encounter uygpgckiu93/27/2024 2:15 PM EST [facility] [address] [place] [address] Ariel Lopez, DPM [address] [place] [address] [facility] PODIATRYStart: 01-03-2024 End: 19-04-8531Bzylfrj encounter nitwjrwkk93/21/2024 11:15 AM EST Office Visit [facility] [address] [facility] [address] [place] [address] Bill Trammell DO [address] [facility] [address] [place] [address] [facility]ITALtart: 76-58-9576Onszsgdrrs A1c measurement Diabetes: Hemoglobin G4DRCLN HealthcareStart: 54-65-7135Bzzgrfbtm vaccination Influenza Vaccine (#1)[facility] HealthcareStart: 46-72-4257Buxzxzlbshyk Vaccine: 65+ Years (2 of 2 - PPSV23 or PCV20)Pneumococcal Vaccine: 65+ Years (2 of 2 - PPSV23 or PCV20)[facility] HealthcareStart: 71-37-2444Rsztfhobvoan Vaccine: 65+ Years (2 of 2 - PPSV23)Pneumococcal Vaccine: 65+ Years (2 of 2 - PPSV23)[facility] Start: 61-63-0281Ptocjwqxvmfe Vaccine: 65+ Years (2 of 2 - PPSV23, PCV20, or PCV21)Pneumococcal Vaccine: 65+ Years (2 of 2 - PPSV23, PCV20, or PCV21)[facility] HealthcareStart: 77-18-8488Qxwrnkkrv for malignant neoplasm of colonNOOH HealthcarePatient referralMercy Memorial Hospital Work Phone: Immunizations Immunization DateImmunizationNotesCare YtkbplnhNxannxwo97-29-6710hmbqph vaccine, liveAnthherve Lopez DPM Work Phone: [facility] HospitalByevrcawcc61-47-1520mbjgzjbgcbff conjugate vaccine, 13 valentAnthokedar Lopez DPM Work Phone: [facility] HospitalMoouuwxihs24-40-5344yufziwo toxoid, reduced diphtheria toxoid, and acellular pertussis vaccine, adsorbedBrianherve Marcello DPM Work Phone: [facility] HospitalFrxasdtmko79-09-1780ygxkpxv and diphtheria toxoids, adsorbed, preservative free, for adult use (5 Lf of tetanus toxoid and 2 Lf of diphtheria toxoid)Ariel [place] DPM Work Phone: [facility] Payers DatePayer CategoryPayerPolicy [id number] 2015MedicareMEDICARE [id number] Health InsuranceASCENSION STANDISH HOSPITALSICHI [facility] [id number] [id number] [id number]-[id number] 2.16.840.1.845835.3.57[id number] 2.840.1.317053.3.579.[id number] 2.840.1.497634.3.579.[id number] 2.840.1.643526.3.579.[id number] 2.840.1.048248.3.579.2.97799-25-8878Sbreupl4203893 2.0.1.689723.3.579.2.80218-75-7153Roaifnq6927962 2..1.471510.3.579.2.25431-21-4225Lwjksuc4869817 2.0.1.518848.3.579.2.75262-72-8129Erlgmeo72322313 2.0.1.710789.3.579.2.356202-66-8945Whmooku97142447 2.840.1.954044.3.579.2.472867-88-1206Hvqfpnz97524158 2.0.1.198308.3.579.2.032598-36-7549Enwfiin47215405 2.840.1.518227.3.579.2.556554-36-3689Zjbsabt52410733 2.0.1.302808.3.579.2.867923-59-6663Ybwawfy64497937 2.840.1.619842.3.579.2.718688-28-4794Lpqwrxo08467660 2.840.1.137663.3.579.2.712668-51-2012Dvsjfkf13194409 2.16.840.1.103302.3.579.2.082437-67-1573Hhdfcdt93868301 2.16.840.1.365823.3.579.2.572972-34-4901Bgqpfjq87507817 2.16.840.1.361143.3.579.2.279670-80-0058Nuuxalf9815840 2..840.1.011482.3.579.2.619548-88-6086Wnsegax5534890 2.16.840.1.996051.3.579.2.901488-45-5170Kbyaiwt7293868 2..840.1.943303.3.579.2.955367-10-3394Fhszvnm1074137 2.840.1.571749.3.579.2.739884-29-6698Xmouars4815485 2.0.1.324383.3.579.2.671110-86-7323Vdlwhtn4095898 2..840.1.149276.3.579.2.791784-87-4285Kxsxxgi2826118 2.840.1.714917.3.579.2.1259Private Health [id number] 4fr74i3e-2m5l-4211-553s-ad8b9545sgh5RdjjylaWqoitdj58372051 2.0.1.245353.3.579.2.531 Social History DateTypeDetailFacilityStart: 61-02-4775Sgqvsre smoking status NHISEx-smoker (finding)[facility] Hospitaltart: 55-40-7360Gri Assigned At FemaleTriHealth Bethesda North Hospitaltart: 40-29-8104Yqstcug smoking status NHISNever smoked tobaccoNOMS HealthcareStart: 87-13-7020Zdagidy use and exposure Smokeless tobacco non-userNOMS HealthcareStart: 09-03-2023 End: 57-84-1951Keojqatzl beverage intakeLifetime non-drinker (finding)[facility] HospitalStart: 09-03-2023 End: 81-07-7455Gmmadaz of Social functionRipley County Memorial HospitalStart: 09-03-2023 End: 53-82-6807Xxkiomw use panelRipley County Memorial HospitalStart: 97-17-6039Epiwdny Comment Caffeine Intake: 1-2 cups per day coffee, soda/popMCKAY-DEE HOSPITAL CENTER HealthcareStart: 93-47-3920Kbx assigned at birthNot on fileMCKAY-DEE HOSPITAL CENTER HealthcareStart: 50-29-3359Btf FemaleRipley County Memorial Hospital Medical Equipment Procedure CodeEquipment CodeEquipment Original TextEquipment IdentifierDates Biopsy, breast, with lumpectomyImaging lesion localization marker, implantable [id number] FDAStart: 02-22-2021 Goals DatePatient GoalDesired Activity/State Functional Status CmlnIyanotcrxaZznzfzGrjnwklu13-18-8020Soopdad Health Questionnaire 2 item (PHQ- 2) [Reported][facility] HospitalZcwzoyotol77-33-4033Bdhnnmy Health Questionnaire 2 item (PHQ- 2) [Reported][facility] HospitalHxkctnenqm14-43-9034Hkidecl Health Questionnaire 2 item (PHQ- 2) [Reported][facility] HospitalDfcvqohlxe76-23-1015Iwfxagw Health Questionnaire 2 item (PHQ- 2) [Reported][facility] Clinical Notes 11-18-2020 to 10-22-2024 Note Date & RhvjOgfzYalrdeya20-87-4076 History of Present illness Narrative* Ariel Lopez, DP - 10/22/2024 1:15 PM EDT Images from [...] Acquired hypothyroidism 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 CAD (coronary artery disease) 2013 Cerebrovascular accident ([facility]) 2006 CHF (congestive heart failure) ([facility]) Chronic ischemic heart disease COVID 11/17/2020 Positive, unvaccinated Diabetes mellitus ([facility]) 2012 Type 2 without complication Diverticulosis Dizziness Inner ear infection Edema GERD (gastroesophageal reflux disease) 2014 Heart disease Heat exhaustion UTI Hemoptysis 2014 History of being hospitalized 2006 Blood transfusion History of being hospitalized 11/20/2020 ER COVID pneumonia [facility] History of medical problems Sphincter History of tonsillitis Hypertension Hypothyroidism (acquired) Measles Mumps Myocardial infarction ([facility]) 12/03/2006 Osteoporosis Pneumonia 2014 Sebaceous cyst 2011 [...] with neurological manifestations, not stated as uncontrolled(250.60) ([facility]) E11.49 Patient examined and evaluated. 10 toenails were debrided in length and thickness today utilizing anail nipper and electric bur sugar grinder without incident. I have discussed the [...] understanding. Ariel Lopez DPM documented in this encounterRipley County Memorial HospitalJnopuxtmez61-83-0558 History of Present illness Narrative* Hong Schilling MD - 10/06/2024 3:16 PM EDTAssociated Problem(s): Infection of index finger Sloughing of skin previously Still with swelling Would refer to Ortho if Bactrim doesn't get rid of swelling Add Probiotic to help replenish the good bacteria that are destroyed by the Antibiotics Florastor Florajen Align or try Activia in Yogurt Probiotics reduce the risk of antibiotic induced diarrhea * Hong Schilling MD - 10/06/2024 3:15 PM EDTAssociated Problem(s): Swelling of index finger Still with swelling Finished atibiotics * Hong Schilling MD - 10/06/2024 3:00 PM EDT Images from the original note [...] before bedtime. 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 CAD (coronary artery disease) 2013 Cerebrovascular accident (HCC) 2006 CHF (congestive heart failure) ([facility]) Chronic ischemic heart disease COVID 11/17/2020 Positive, unvaccinated Diabetes mellitus (HCC) 2012 Type 2 without complication Diverticulosis Dizziness [...] No follow-ups on file. documented in this encounterRipley County Memorial HospitalOiruvrpjae70-47-6842 History of Present illness Narrative* Saima Stanford MA - 10/01/2024 10:30 AM EDT Patient was in for a follow up on a BICROS which she was fit with several weeks ago. Patient is doing ok but is still not completely understanding the CROS. We reviewed that unit is a transmitter andshe will not experience hearing in the right ear. There is no amplification in that ear. Patient will call for future follow ups. Cosigned by LORETTA Alanis at 10/10/2024 10:02 AM EDT documented in this encounterRipley County Memorial HospitalKcnqdngiyj89-10-2139 History of Present illness Narrative* Hong Schilling MD - 09/23/2024 1:50 PM EDTAssociated Problem(s): Chronic kidney disease, stage 3a ([facility]) Avoid NSAIDs such as Ibuprofen, Motrin, Naprosyn. Increase fluids. * Hong Schilling MD - 09/23/2024 1:50 PM EDTAssociated Problem(s): Infection of index finger Add Probiotic to help replenish the good bacteria that are destroyed by the Antibiotics Florastor Florajen Align or try Activia in Yogurt Probiotics reduce the risk of antibiotic induced diarrhea * Hong Schilling MD - 09/23/2024 1:30 PM EDT Images from the original note were not included. Attached media from the original note were not included. Subjective Patient ID: Rosalie Horne is a 74 y.o. female who presents for No chief complaint on file.. Rosalie presents today for right pointer finger pain. She says the whole right had was swollen but thathas gotten better. The one finger will get broken skin and be very painful. Thsi has been going on for the 2-3 weeks. She states she has had no injury to the hand. She has not tried any thing OTC forit. 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 CAD (coronary artery disease) 2013 Cerebrovascular accident ([facility]) 2006 CHF (congestive heart failure) ([facility]) Chronic ischemic heart disease COVID 11/17/2020 Positive, unvaccinated Diabetes mellitus ([facility]) 2012 Type 2 without complication Diverticulosis Dizziness Inner ear infection Edema GERD (gastroesophageal reflux disease) 2014 Heart disease Heat exhaustion UTI Hemoptysis 2014 History of being hospitalized 2006 Blood transfusion History of being hospitalized 11/20/2020 ER COVID pneumonia [facility] History of medical problems Sphincter History of tonsillitis Hypertension Hypothyroidism (acquired) Measles Mumps Myocardial infarction ([facility]) 12/03/2006 Osteoporosis Pneumonia 2014 Sebaceous cyst 2011 [...] No follow-ups on file. documented in this [facility]08-06-2025 History of Present illness Narrative* Saima Stanford MA - 09/17/2024 10:00 AM EDT Patient was in today to be fit with a left hearing aid coupled to a right CROS. Patient has tried hearing aids in the past but is new to a CROS and has not worn aids for any longer than a trial period. Patient was shown the road monkey and was able to use it. Patient was shown maintenance and she was able to change the dome and filter. Patient was initially confused by the CROS but understood after counseling. Patient was able to insert and remove the hearing aids with little difficulty. The CROS was coupled to a 2R standard cold working inspector with an extra small vented dome. The hearing aid was coupled toa 2M cold working inspector with an extra small vented dome. Patient indicated the aids were comfortable. Patientaids were not paired to a smart phone. She is scheduled for a follow up in two weeks. Patient paid $4300 for hearing aid ($2600) and CROS ($1700). Cosigned by LORETTA Alanis at 09/17/2024 1:59 PM EDT documented in this [facility]07-14-2025 Telephone encounter Note* Telephone Encounter - Sloane Santacruz - 08/25/2024 12:49 PM EDT Pt's called to let us know pt is keeping her DM shoes and likes them. Shoe check appt has been cancelled. [facility] [id number] Miscellaneous Notes* Telephone Encounter - Sloane Beardendonta - 08/25/2024 12:49 PM EDT Pt's called to let us know pt is keeping her DM shoes and likes them. Shoe check appt has been cancelled. documented in this encounterRipley County Memorial [id number] History of Present illness Narrative* LORETTA Alanis - 08/18/2024 10:15 AM EDT Hearing Aid Discussion: Pt here for hearing aid discussion and is accompanied by her . Pt tried custom hearing aids about 5 years ago but was not successful. The left aid was not comfortable despite remakes. Pt's right word discrimination is now 0% so she is no longer a candidate for a traditional hearing aid for her right ear. Recommend FAISAL GUTHRIE. Discussed standard, advanced, and premium technology. Pt's would like pt to try advanced circuit. He wears hearing aids and knows about the problems background noise can create. Will order aids. Scheduled pt for HAF and 2 week follow up. Pt will owe $4300 at the fitting appointment. documented in this encounterRipley County Memorial [id number] History of Present illness Narrative* Ariel Lopez DPM - 08/08/2024 10:45 AM EDT Images from the original note were not included. Subjective Patient ID: Rosalie Horne is a 74 y.o. 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 female who presents for shoe grain picker. [address] Skinner, 3 HM inserts. 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 CAD (coronary artery disease) 2013 Cerebrovascular accident ([facility]) 2006 CHF (congestive heart failure) ([facility]) Chronic ischemic heart disease COVID 11/17/2020 Positive, unvaccinated Diabetes mellitus ([facility]) 2012 Type 2 without complication Diverticulosis Dizziness Inner ear infection Edema GERD (gastroesophageal reflux disease) 2013 Heart disease Heat exhaustion UTI Hemoptysis 2014 History of being hospitalized 2006 Blood transfusion History of being hospitalized 11/20/2020 ER COVID pneumonia [facility] History of medical problems Sphincter History of tonsillitis Hypertension Hypothyroidism (acquired) Measles Mumps Myocardial infarction ([facility]) 12/03/2006 Osteoporosis Pneumonia 2014 Sebaceous cyst 2011 [...] exhibit clinical mycosis with yellow/brown discoloration, crumbly texture,subungual debris. Currently manicured for length, thickness. Hyperkeratotic [...] with neurological manifestations, not stated as uncontrolled(250.60) ([facility]) E11.49 2. Hammer toe of left foot [...] able to apply the shoes independently. Walking inthe shoes is comfortable and nonirritating. Patient was [...] understanding. 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 CAD (coronary artery disease) ([facility]) 2013 Cerebrovascular accident ([facility]) 2006 CHF (congestive heart failure) ([facility]) Chronic ischemic heart disease COVID 11/17/2020 Positive, unvaccinated Diabetes mellitus ([facility]) 2013 Type 2 without complication Diverticulosis Dizziness Inner ear infection Edema GERD (gastroesophageal reflux disease) 2014 Heart disease Heat exhaustion UTI Hemoptysis 2014 History of being hospitalized 2006 Blood transfusion History of being hospitalized 11/20/2020 ER COVID pneumonia [facility] History of medical problems Sphincter History of tonsillitis Hypertension ([facility]) Hypothyroidism (acquired) ([facility]) Measles Mumps Myocardial infarction ([facility]) 12/03/2006 Osteoporosis ([facility]) Pneumonia 2014 Sebaceous cyst 2011 Thyroid disease ([facility]) Medications Current Outpatient Medications: ammonium lactate (Amlactin) [...] 2018 COLONOSCOPY 2013 CORONARY ARTERY BYPASS GRAFT 2006 DERMOID CYST [...] exhibit clinical mycosis with yellow/brown discoloration, crumbly texture,subungual debris. Currently manicured for length, thickness. Hyperkeratotic [...] I73.9 Patient was measured for diabetic shoes. [employer] device was utilized and patient stood in a weightbearing position for accurate measurement. Measurements were recorded appropriately. Patient selected desired shoe style in color which was marked down on the appropriate paperwork. Diabetic shoes arerequired due to history of neuropathy, pre-ulcerative lesions as well as pedal deformities. The shoes are designed to reduce shear pressure across the foot and prevent pedal ulceration. Follow-up forshoe fitting and dispensing. This note was created with the assistance of a speech recognition program. While intending to generate a timely document that accurately reflects the content of the visit, no guarantee can be provided that every grammatical or spelling mistake has been or will be identified or corrected. Thank you for your understanding. Ariel Lopez DPM documented in this encounterRipley County Memorial [id number] History of Present illness Narrative* Hong Schilling MD - 07/21/2024 11:00 AM EDTAssociated Problem(s): Hypercholesterolemia (CMS/HCC) This is a chronic medical condition that is stable since last assessment. No changes in treatment are suggested at this time. Continue Current meds. * Hong Schilling MD - 07/21/2024 11:00 AM EDTAssociated Problem(s): Hyperlipidemia (CMS/HCC) This is a chronic medical condition that is stable since last assessment. No changes in treatment are suggested at this time. Continue Current meds. * Hong Schilling MD - 07/21/2024 11:00 AM EDTAssociated Problem(s): Malignant neoplasm of submandibular gland (CMS/HCC) F/up with ENT as needed * Hong Schilling MD - 07/21/2024 10:59 AM EDTAssociated Problem(s): Medicare annual wellness visit, subsequent Colonoscopy [...] Ultrasound of Aorta to screen for Anuerysm * Hong Schilling MD - 07/21/2024 10:59 AM EDTAssociated Problem(s): Acquired hypothyroidism (CMS/HCC) Check labs * Hong Schilling MD - 07/21/2024 10:59 AM EDTAssociated Problem(s): Type 2 diabetes mellitus with diabetic [...] healthy diet and exercise. A1c is 5.6 * Hong Schilling MD - 07/21/2024 10:58 AM EDTAssociated Problem(s): Non-pressure chronic ulcer of other part of left foot with fat layer exposed Recommend Diabetic shoes * Hong Schilling MD - 07/21/2024 10:58 AM EDTAssociated Problem(s): Type 2 diabetes mellitus with foot ulcer (CODE) Sees Podiatry Recommend Diabetic shoes Paperwork completed and agree with podiatry assessment * Hong Schilling MD - 07/21/2024 10:58 AM EDTAssociated Problem(s): Chronic kidney disease, stage 3a (HCC) (CMS/HCC) Avoid NSAIDs such as Ibuprofen, Motrin, Naprosyn. Increase fluids. * Hong Schilling MD - 07/21/2024 10:57 AM EDTAssociated Problem(s): Chronic diastolic (congestive) heart failure Stable * Hong Schilling MD - 07/21/2024 10:57 AM EDTAssociated Problem(s): Chronic systolic (congestive) heart failure Continue current meds * Hong Schilling MD - 07/21/2024 10:57 AM EDTAssociated Problem(s): Hypertensive heart disease with heart failure (CMS/HCC) BP is controlled * Hong Schilling MD - 07/21/2024 10:56 AM EDTAssociated Problem(s): Other cardiomyopathies Stable continue current medicines * Hong Schilling MD - 07/21/2024 10:56 AM EDTAssociated Problem(s): Pulmonary hypertension, unspecified (CMS/HCC) Found on Echo Pulmonary pressures are 42 mmHg * Hong Schilling MD - 07/21/2024 10:56 AM EDTAssociated Problem(s): Type 2 diabetes mellitus with peripheral vascular disease (CMS/HCC) S/P CVA, continue current meds F/Up with specialists * Hong Schilling MD - 07/21/2024 10:55 AM EDTAssociated Problem(s): Unspecified systolic (congestive) heart failure (CMS/HCC) Stable for now no acute exacerbations * Hong Schilling MD - 07/21/2024 10:55 AM EDTAssociated Problem(s): Vascular dementia, unspecified severity, without behavioral disturbance, psychotic disturbance, mood disturbance, and anxiety (CMS/HCC) Stable overall, continue mental exercises such as word searches, Sodoku and Crosswords * Hong Schilling MD - 07/21/2024 10:30 AM EDT Images from the original note were [...] (88 mcg) by mouth in the morning. 90tablet 0 magnesium 250 MG tablet every 12 [...] apparent by direct observation Three Word Registration: Alberto Mckeon Picture Clock Drawing: Normal Clock - 2 Three Word Recall: All 3 words correct - 3 Total Score (0-5 Points): 5 Pain Assessment Pain Score: 0 - No pain Advance Care Planning Do you have a living will?: Yes Do you have a medical power of managing attorney?: No Objective : BP 122/78 Pulse [...] (congestive) heart failure Continue current meds Hypercholesterolemia (CMS/HCC) This is a chronic medical condition that is stable since last assessment. No changes in treatment are suggested at this time. Continue Current meds. Relevant Orders CBC and differential Comprehensive metabolic panel Lipid panel Hyperlipidemia ([facility]/HCC) This is a chronic medical condition that is stable since last assessment. No changes in treatment are suggested at this time. Continue Current meds. Relevant Orders CBC and differential Comprehensive metabolic panel Lipid panel Hypertensive heart disease with heart failure ([facility]/HCC) BP is controlled Other cardiomyopathies Stable continue current medicines Type 2 diabetes mellitus with peripheral vascular disease ([facility]/HCC) S/P CVA, continue current meds F/Up with [...] exposed Recommend Diabetic shoes Pulmonary hypertension, unspecified (CMS/HCC) Found on Echo [...] on July 21, 2024 documented in this encounterRipley County Memorial [id number] History of Present illness Narrative* Ariel Lopez, DPM - 07/16/2024 1:30 PM EDT Images from the original note were not included. Subjective Patient ID: Isabella Horne is a 74 y.o. female who presents for DM Foot Care (Established patient presents today for DM nail care. Patient also inquiring about diabetic shoes, patient states she'sgotten them though our office in the past. 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 CAD (coronary artery disease) ([facility]) 2013 Cerebrovascular accident ([facility]) 2006 CHF (congestive heart failure) ([facility]) Chronic ischemic heart disease COVID 11/17/2020 Positive, unvaccinated Diabetes mellitus ([facility]) 2013 Type 2 without complication Diverticulosis Dizziness Inner ear infection Edema GERD (gastroesophageal reflux disease) 2014 Heart disease Heat exhaustion UTI Hemoptysis 2014 History of being hospitalized 2006 Blood transfusion History of being hospitalized 11/20/2020 ER COVID pneumonia [facility] History of medical problems Sphincter History of tonsillitis Hypertension ([facility]) Hypothyroidism (acquired) ([facility]) Measles Mumps Myocardial infarction ([facility]) 12/03/2006 Osteoporosis ([facility]) Pneumonia 2014 Sebaceous cyst 2011 Thyroid disease ([facility]) Medications Current Outpatient Medications: ammonium lactate (Amlactin) [...] with neurological manifestations, not stated as uncontrolled(250.60) ([facility]) E11.49 2. Onychodystrophy L60.3 3. Onychomycosis B35.1 4. Hammer toe of left foot M20.42 5. Corns and callosities L84 6. Contracture of toe of left foot M20.5X2 7. Peripheral vascular disease ([facility]) I73.9 Patient examined and evaluated. 10 toenails were debrided in length and thickness today utilizing anail nipper and electric bur sugar grinder without incident. I have discussed the [...] understanding. Ariel Lopez DPM documented in this encounterRipley County Memorial [id number] [facility] Chief Complaint: Patient here [...] past medical history of Abnormal ECG, Cancer ([facility]), CHF (congestive heart failure) ([facility]), Coronary artery disease, Heart valve disease, and [...] appropriate mood, affect, a (more content not included)...[facility]05-06-2025 History of Present illness Narrative* Jamila Carcamo MD - 06/17/2024 11:30 AM EDT Subjective Patient ID: Isabella Horne is a [...] of cardiovascular function studies 03/10/2013 Acquired hypothyroidism (CMS/[facility]) 01/19/2015 Adenoid cystic carcinoma (CMS/HCC) 11/16/2020 Allergic rhinitis 01/19/2015 Anger reaction 08/09/2017 Asymmetrical sensorineural hearing loss 08/13/2019 Calculus of gallbladder without cholecystitis without obstruction 09/04/2022 Chronic diastolic heart failure (CMS/HCC) 09/04/2022 Chronic systolic heart failure (CMS/HCC) 03/12/2012 Conductive hearing loss, bilateral 03/24/2019 Diabetic renal disease (CMS/HCC) 07/01/2015 Diabetic retinopathy associated with type 2 diabetes mellitus ([facility]) 05/21/2018 Diastolic dysfunction with acute on chronic heart failure (CMS/HCC) 02/17/2016 Disorder of lipid metabolism (CMS/HCC) 09/23/2013 COVID-19 virus detected 11/23/2020 Edema 01/19/2015 Elevated liver enzymes 09/04/2022 Acquired hammer toe of left foot 09/04/2022 Acquired hammer toe of right foot 09/04/2022 Hammer toe 09/04/2022 Headache 09/02/2015 Hiatal hernia 06/28/2015 History of COVID-19 09/04/2022 History of stroke without residual deficits 01/01/2015 Hypercholesterolemia ([facility]) 11/28/2016 Hyperlipidemia ([facility]) 03/12/2012 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 disorder ([facility]) 01/01/2015 Hypertensive heart failure ([facility]) 09/04/2022 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 04/11/2018 Loss of taste 11/18/2020 LPRD (laryngopharyngeal reflux disease) 12/27/2016 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 breast ([facility]) 09/04/2022 Mild episode of recurrent major depressive disorder (HCC) ([facility]) 09/04/2022 Mitral valve disorder 03/12/2012 Mild nonproliferative diabetic retinopathy associated with type 2 diabetes mellitus ([facility]) 09/04/2022 Moderate nonproliferative diabetic retinopathy without macular edema associated with type 2 diabetes mellitus ([facility]) 11/18/2015 Neuropathy 09/02/2015 Nonproliferative diabetic retinopathy of left eye ([facility]) 01/01/2020 Osteoporosis ([facility]) 03/01/2015 Ischemic heart disease ([facility]) 03/10/2013 Other forms of chronic ischemic heart disease 09/23/2013 Paralyzed vocal cords 11/28/2016 Peripheral angiopathy due to type 2 diabetes mellitus ([facility]) 09/17/2018 Diabetic autonomic neuropathy associated with type 2 diabetes mellitus ([facility]) 08/22/2018 Diabetic peripheral neuropathy associated with type 2 diabetes mellitus ([facility]) 09/23/2015 Polyneuropathy due to type 2 diabetes mellitus ([facility]) 09/04/2022 Primary osteoarthritis, right hand 09/04/2022 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 accident 03/24/2019 Retained orthopedic hardware 03/04/2019 RLS (restless legs syndrome) 11/28/2016 Seasonal allergic rhinitis due to pollen 06/05/2017 Secondary cardiomyopathy ([facility]) 09/04/2022 Tension headache 02/17/2016 Thrombocytopenia ([facility]) 11/22/2020 Triple negative malignant neoplasm of breast ([facility]) 09/04/2022 Type 2 diabetes mellitus with peripheral vascular disease ([facility]) 09/04/2022 Type 2 diabetes mellitus 03/12/2012 Vascular dementia 09/04/2022 Reduced ejection fraction concurrent with and due to chronic heart failure ([facility]) 11/21/2018 Sensorineural hearing loss, unilateral, right ear, with unrestricted hearing on the contralateral side 09/15/2019 Medicare annual wellness visit, subsequent 09/06/2022 Personal history of breast cancer 11/22/2022 Numbness and tingling of both legs 05/07/2023 Spinal stenosis of lumbar region with neurogenic claudication 05/07/2023 Benign essential hypertension ([facility]) 07/17/2023 Abnormal ECG 04/02/2023 Hx of CABG 04/02/2023 Resolved Ambulatory Problems Diagnosis Date Noted No Resolved Ambulatory Problems Past Medical History: Diagnosis Date 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 Aphasia Arthritis Breast cancer ([facility]) 11/17/2020 CAD (coronary artery disease) ([facility]) 2014 Cerebrovascular accident ([facility]) 2006 CHF (congestive heart failure) ([facility]) Chronic ischemic heart disease COVID 11/17/2020 Diabetes mellitus ([facility]) 2013 Diverticulosis Dizziness GERD (gastroesophageal reflux disease) 2014 Heart disease Heat exhaustion Hemoptysis 2014 History of being hospitalized 2006 History of being hospitalized 11/20/2020 History of medical problems History of tonsillitis Hypertension ([facility]) Hypothyroidism (acquired) ([facility]) Measles Mumps Myocardial infarction ([facility]) 12/03/2006 Pneumonia 2014 Sebaceous cyst 2011 Thyroid disease ([facility]) Past Surgical History: Procedure Laterality Date ANAL [...] (88 mcg) by mouth in the morning. 90tablet 0 magnesium 250 MG tablet every 12 [...] out. Recommend michele BELLAMY documented in this encounterRipley County Memorial [id number] History of Present illness Narrative* LORETTA Alanis - 06/13/2024 1:00 PM EDT History: Pt was referred to ENT because of hearing loss. Pt has history of bilateral sensorineural hearing loss, slightly worse in her right ear. Word discrimination score is poor in the right ear. Last audioat this office was 08-13-19. 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 CAD (coronary artery disease) ([facility] [facility] 2014 Cerebrovascular accident ([facility]) 2006 CHF (congestive heart failure) ([facility]) Chronic ischemic heart disease ([facility]) COVID 11/17/2020 Positive, unvaccinated Diabetes mellitus ([facility]) 2013 Type 2 without complication Diverticulosis Dizziness Inner ear infection Edema GERD (gastroesophageal reflux disease) 2014 Heart disease Heat exhaustion UTI Hemoptysis 2014 History of being hospitalized 2006 Blood transfusion History of being hospitalized 11/20/2020 ER COVID pneumonia [facility] History of medical problems Sphincter History of tonsillitis Hypertension ([facility]) Hypothyroidism (acquired) ([facility]) Measles Mumps Myocardial infarction ([facility]) 12/03/2006 Osteoporosis ([facility]) Pneumonia 2014 Sebaceous cyst 2011 Thyroid disease ([facility]) Medications Current Outpatient Medications: ammonium lactate (Amlactin) [...] 1 TABLET EVERY MORNING, Disp: 100 tablet, Rfl:1 pravastatin (Pravachol) 40 MG tablet, TAKE 1 [...] not stated as uncontrolled(250.60) (CMS/HCC) E11.49 2. Onychodystrophy L60.3 3. Onychomycosis B35.1 Patient examined and evaluated. Diabetic foot evaluation performed. Patient remains mild risk for pedal complications. She does have a history of ulceration but currently has no preulcerative lesions. Mild deformity and neuropathy also present which places her at mild risk. 10 toenails were debrided in length and thickness today utilizing a nail nipper and electric bur sugar grinder without incident. Saadia discussed the importance of daily foot examinations [...] understanding. 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 CAD (coronary artery disease) ([facility]) 2013 Cerebrovascular accident ([facility]) 2006 CHF (congestive heart failure) ([facility]) Chronic ischemic heart disease ([facility]) COVID 11/17/2020 Positive, unvaccinated Diabetes mellitus ([facility]) 2012 Type 2 without complication Diverticulosis Dizziness Inner ear infection Edema GERD (gastroesophageal reflux disease) 2014 Heart disease Heat exhaustion UTI Hemoptysis 2014 History of being hospitalized 2007 Blood transfusion History of being hospitalized 11/20/2020 ER COVID pneumonia [facility] History of medical problems Sphincter History of tonsillitis Hypertension ([facility]) Hypothyroidism (acquired) ([facility]) Measles Mumps Myocardial infarction ([facility]) 12/03/2006 Osteoporosis ([facility]) Pneumonia 2013 Sebaceous cyst 2010 Thyroid disease ([facility]) Medications Current Outpatient Medications: ammonium lactate (Amlactin) [...] 1 TABLET EVERY MORNING, Disp: 100 tablet, Rfl:1 pravastatin (Pravachol) 40 MG tablet, TAKE 1 [...] 2019 COLONOSCOPY 2013 CORONARY ARTERY BYPASS GRAFT 2006 DERMOID CYST EXCISION EXCISION / BIOPSY BREAST / NIPPLE / DUCT 03/15/2021 FRACTURE SURGERY 2019 KNEE ARTHROSCOPY W/ LASER PATELLA FRACTURE SURGERY TRIGGER FINGER RELEASE 2012 ULTRASOUND GUIDED BREAST BIOPSY Right 11/09/2020 WISDOM [...] her pharmacy. I also recommend that she continueto use a spacer, Band-Aid or benítez's wool in between the digits to reduce friction and rubbing. Alsorecommend using an emery board periodically to reduce mild hyperkeratotic buildup. I recommend close follow up with our office for high- risk diabetic foot check to debride nails and [...] understanding. 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 CAD (coronary artery disease) ([facility]) 2014 Cerebrovascular accident ([facility]) 2006 CHF (congestive heart failure) ([facility]) Chronic ischemic heart disease ([facility]) COVID 11/17/2020 Positive, unvaccinated Diabetes mellitus ([facility]) 2013 Type 2 without complication Diverticulosis Dizziness Inner ear infection Edema GERD (gastroesophageal reflux disease) 2014 Heart disease Heat exhaustion UTI Hemoptysis 2014 History of being hospitalized 2006 Blood transfusion History of being hospitalized 11/20/2020 ER COVID pneumonia [facility] History of medical problems Sphincter History of tonsillitis Hypertension ([facility]) Hypothyroidism (acquired) ([facility]) Measles Mumps Myocardial infarction ([facility]) 12/03/2006 Osteoporosis ([facility]) Pneumonia 2014 Sebaceous cyst 2011 Thyroid disease ([facility]) Social History Tobacco Use Smoking status: Never [...] m Physical Exam Exam conducted with a supervisor network control operators present. HENT: Head: Normocephalic. Cardiovascular: Rate and Rhythm: Normal rate and regular rhythm. Pulmonary: Effort: Pulmonary effort is normal. Breath sounds: Normal breath sounds. Chest: Comments: Bilateral supraclavicular, infraclavicular, bicipital and axillary lymph nodes were foundto be normal. Each breast was examined in the sitting and supine position, there was no evidence ofmasses, dimpling or discharge in either breast. Right [...] 6 months for recheck documented in this encounterRipley County Memorial [id number] History of Present illness Narrative* Ariel Lopez DPM - 12/12/2023 3:15 PM EDT Images from the original note [...] new pair of shoes and she started noticingpain in between the 4th and 5th toes. 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 CAD (coronary artery disease) ([facility]) 2013 Cerebrovascular accident ([facility]) 2006 CHF (congestive heart failure) ([facility]) Chronic ischemic heart disease ([facility]) COVID 11/17/2020 Positive, unvaccinated Diabetes mellitus ([facility]) 2013 Type 2 without complication Diverticulosis Dizziness Inner ear infection Edema GERD (gastroesophageal reflux disease) 2014 Heart disease Heat exhaustion UTI Hemoptysis 2014 History of being hospitalized 2006 Blood transfusion History of being hospitalized 11/20/2020 ER COVID pneumonia [facility] History of medical problems Sphincter History of tonsillitis Hypertension ([facility]) Hypothyroidism (acquired) ([facility]) Measles Mumps Myocardial infarction ([facility]) 12/03/2006 Osteoporosis ([facility]) Pneumonia 2014 Sebaceous cyst 2010 Thyroid disease ([facility]) Medications Current Outpatient Medications: ASPIRIN 81 PO, Take by mouth, Disp: , Rfl: carvedilol (Coreg) 3.125 MG tablet, TAKE 1 TABLET TWICE DAILY, Disp: 200 tablet, Rfl: 3 cinnamon 500 MG capsule, Take 500 mg by mouth in the morning., Disp: , Rfl: famotidine (Pepcid) 20 MG tablet, Take 1 tablet (20 mg) by mouth at bedtime, Disp: 100 tablet, Rfl:2 ferrous sulfate 325 (65 Fe) MG tablet, [...] with neurological manifestations, not stated as uncontrolled(250.60) ([facility]) E11.49 2. Ulcer of left foot with fat layer exposed ([facility]) L97.522 3. Hammer toe of left foot M20.42 4. Contracture of toe of left foot M20.5X2 5. Peripheral vascular disease ([facility]) I73.9 Patient examined and evaluated. Noted to have hyperkeratotic lesions between the 4th and 5th toesOfthe left foot. Discussed the cause of this [...] toes would be too bulky at this point.We will rely on the Band-Aids for offloading [...] understanding. Ariel Lopez DPM documented in this encounterRipley County Memorial [id number] NotePROCEDURE: XR SHOULDER RT 2V or > COMPARISON: None. HISTORY: Pain of right shoulder joint FINDINGS: BONES:No acute fracture or dislocation. The glenohumeral joints are intact. 3 mm of subacromial spurring. SOFT TISSUES:Negative. No visible soft tissue swelling. EFFUSION:None visible. OTHER: Moderate degenerative changes of the spine. Calcified hilar lymph nodes. Vascular calcifications. IMPRESSION: Mild degenerative changes Electronically authenticated by: JHONNY SALAS Date: 2020-11-18 14:15[facility] Diagnosis Onset Date Resolution Status Abnormal ECG acuteCoronary artery diseaseacuteHx of CABGacuteIschemic cardiomyopathyacute Adenoid cystic carcinoma of breastacute [facility] Work Phone: Evaluation noteNo assessment information available [facility] Work Phone: Evaluation note* Diagnosis Diabetic autonomic neuropathy associated with type 2 diabetes mellitus ([facility]) - Primary Type II or unspecified type diabetes mellitus with neurological manifestations, not stated as uncontrolled Acquired hypothyroidism (CMS/HCC) Unspecified hypothyroidism Diabetic nephropathy associated with type 2 diabetes mellitus (HCC) (CMS/HCC) Chronic systolic heart failure ([facility]) Chronic systolic heart failure Type 2 diabetes mellitus with peripheral vascular disease (CMS/HCC) Routine general medical examination at health care facility- Primary Routine general medical examination at a health care facility Abnormal glucose tolerance test Impaired glucose tolerance test Benign essential hypertension (CMS/HCC) Essential hypertension, benign Medicare annual wellness visit, subsequent Acquired hypothyroidism ([facility]) Unspecified hypothyroidism Type 2 diabetes mellitus with peripheral vascular disease ([facility]) Hypercholesterolemia (CMS/HCC) Pure hypercholesterolemia Hyperlipidemia, unspecified hyperlipidemia [...] peripheral vascular disease documented in this encounter [facility] HealthcareEvaluation [facility]* Diagnosis Diabetic autonomic neuropathy associated with type 2 diabetes mellitus (CMS/HCC) - Primary Type II or unspecified type diabetes mellitus with neurological manifestations, not stated as uncontrolled Acquired hypothyroidism ([facility]) Unspecified hypothyroidism Diabetic nephropathy associated with type 2 diabetes mellitus (HCC) ([facility]) Chronic systolic heart failure ([facility]) Chronic systolic heart failure Type 2 diabetes mellitus with peripheral vascular disease (CMS/HCC) Routine general medical examination at health care facility- Primary Routine general medical examination at a health care facility Abnormal glucose tolerance test Impaired glucose tolerance test Benign essential hypertension ([facility]) Essential hypertension, benign Medicare annual wellness visit, subsequent Acquired hypothyroidism ([facility]) Unspecified hypothyroidism Type 2 diabetes mellitus with peripheral vascular disease (CMS/HCC) Hypercholesterolemia ([facility]) Pure hypercholesterolemia Hyperlipidemia, unspecified hyperlipidemia type ([facility]) Spinal stenosis of lumbar region with neurogenic claudication Malignant neoplasm of central portion of right breast in female, estrogen receptor negative ([facility])- Primary documented in [facility] encounter [facility]* Diagnosis Diabetic autonomic neuropathy associated with type 2 diabetes mellitus (CMS/HCC) - Primary Type II or unspecified type diabetes mellitus with neurological manifestations, not stated as uncontrolled Acquired hypothyroidism ([facility]) Unspecified hypothyroidism Diabetic nephropathy associated with type 2 diabetes mellitus (HCC) ([facility]) Chronic systolic heart failure ([facility]) Chronic systolic heart failure Type 2 diabetes mellitus with peripheral vascular disease ([facility]) Routine general medical examination at health care facility- Primary Routine general medical examination at a health care facility Abnormal glucose tolerance test Impaired glucose tolerance test Benign essential hypertension ([facility]) Essential hypertension, benign Medicare annual wellness visit, subsequent Acquired hypothyroidism ([facility]) Unspecified hypothyroidism Type 2 diabetes mellitus with peripheral vascular disease ([facility]) Hypercholesterolemia ([facility]) Pure hypercholesterolemia Hyperlipidemia, unspecified hyperlipidemia type ([facility]) Spinal stenosis of lumbar region with neurogenic claudication Type II or unspecified type diabetes mellitus with neurological manifestations, not stated as uncontrolled(250.60) ([facility])- Primary Type II or unspecified type diabetes mellitus with neurological manifestations, not stated as uncontrolled Hammer toe of left foot Contracture of toe of left foot Corns and callosities documented in this encounter [facility]* Diagnosis Diabetic autonomic neuropathy associated with type 2 diabetes mellitus (CMS/HCC) - Primary Type II or unspecified type diabetes mellitus with neurological manifestations, not stated as uncontrolled Acquired hypothyroidism ([facility]) Unspecified hypothyroidism Diabetic nephropathy associated with type 2 diabetes mellitus (HCC) ([facility]) Chronic systolic heart failure ([facility]) Chronic systolic heart failure Type 2 diabetes mellitus with peripheral vascular disease (CMS/HCC) Routine general medical examination at health care facility- Primary Routine general medical examination at a health care facility Abnormal glucose tolerance test Impaired glucose tolerance test Benign essential hypertension (CMS/HCC) Essential hypertension, benign Medicare annual wellness visit, subsequent Acquired hypothyroidism ([facility]) Unspecified hypothyroidism Type 2 diabetes mellitus with peripheral vascular disease ([facility]) Hypercholesterolemia ([facility]) Pure hypercholesterolemia Hyperlipidemia, unspecified hyperlipidemia type (CMS/HCC) Spinal stenosis of lumbar region with neurogenic claudication Type II or unspecified type diabetes mellitus with neurological manifestations, not stated as uncontrolled(250.60) ([facility])- Primary Type II or unspecified type diabetes mellitus with neurological manifestations, not stated as uncontrolled Onychodystrophy Other specified disease of nail Onychomycosis Dermatophytosis of nail documented in this encounter [facility]* Diagnosis Diabetic autonomic neuropathy associated with type 2 diabetes mellitus ([facility]) - Primary Type II or unspecified type diabetes mellitus with neurological manifestations, not stated as uncontrolled Acquired hypothyroidism ([facility]) Unspecified hypothyroidism Diabetic nephropathy associated with type 2 diabetes mellitus (HCC) ([facility]) Chronic systolic heart failure ([facility]) Chronic systolic heart failure Type 2 diabetes mellitus with peripheral vascular disease ([facility]) Routine general medical examination at health care facility- Primary Routine general medical examination at a health care facility Abnormal glucose tolerance test Impaired glucose tolerance test Benign essential hypertension ([facility]) Essential hypertension, benign Medicare annual wellness visit, subsequent Acquired hypothyroidism ([facility]) Unspecified hypothyroidism Type 2 diabetes mellitus with peripheral vascular disease ([facility]) Hypercholesterolemia ([facility]) Pure hypercholesterolemia Hyperlipidemia, unspecified hyperlipidemia type ([facility]) Spinal stenosis of lumbar region with neurogenic claudication Asymmetrical sensorineural hearing loss- Primary Sensorineural hearing loss, asymmetrical Impaired auditory discrimination, right documented in this encounter [facility]* Diagnosis Diabetic autonomic neuropathy associated with type 2 diabetes mellitus (CMS/HCC) - Primary Type II or unspecified type diabetes mellitus with neurological manifestations, not stated as uncontrolled Acquired hypothyroidism ([facility]) Unspecified hypothyroidism Diabetic nephropathy associated with type 2 diabetes mellitus (HCC) ([facility]) Chronic systolic heart failure ([facility]) Chronic systolic heart failure Type 2 diabetes mellitus with peripheral vascular disease ([facility]) Routine general medical examination at health care facility- Primary Routine general medical examination at a health care facility Abnormal glucose tolerance test Impaired glucose tolerance test Benign essential hypertension ([facility]) Essential hypertension, benign Medicare annual wellness visit, subsequent Acquired hypothyroidism ([facility]) Unspecified hypothyroidism Type 2 diabetes mellitus with peripheral vascular disease ([facility]) Hypercholesterolemia ([facility]) Pure hypercholesterolemia Hyperlipidemia, unspecified hyperlipidemia type ([facility]) Spinal stenosis of lumbar region with neurogenic claudication Asymmetric SNHL (sensorineural hearing loss) Sensorineural hearing loss, asymmetrical documented in this encounter [facility]* Diagnosis Diabetic autonomic neuropathy associated with type 2 diabetes mellitus ([facility]) - Primary Type II or unspecified type diabetes mellitus with neurological manifestations, not stated as uncontrolled Acquired hypothyroidism ([facility]) Unspecified hypothyroidism Diabetic nephropathy associated with type 2 diabetes mellitus (HCC) ([facility]) Chronic systolic heart failure ([facility]) Chronic systolic heart failure Type 2 diabetes mellitus with peripheral vascular disease ([facility]) Routine general medical examination at health care facility- Primary Routine general medical examination at a health care facility Abnormal glucose tolerance test Impaired glucose tolerance test Benign essential hypertension ([facility]) Essential hypertension, benign Medicare annual wellness visit, subsequent Acquired hypothyroidism ([facility]) Unspecified hypothyroidism Type 2 diabetes mellitus with peripheral vascular disease ([facility]) Hypercholesterolemia ([facility]) Pure hypercholesterolemia Hyperlipidemia, unspecified hyperlipidemia type ([facility]) Spinal stenosis of lumbar region with neurogenic claudication Type II or unspecified type diabetes mellitus with neurological manifestations, not stated as uncontrolled(250.60) ([facility])- Primary Type II or unspecified type diabetes mellitus with neurological manifestations, not stated as uncontrolled Onychodystrophy Other specified disease of nail Onychomycosis Dermatophytosis of nail Hammer toe of left foot Corns and callosities Contracture of toe of left foot Peripheral vascular disease ([facility]) Unspecified peripheral vascular disease documented in this encounter [facility]* Diagnosis Diabetic autonomic neuropathy associated with type 2 diabetes mellitus ([facility]) - Primary Type II or unspecified type diabetes mellitus with neurological manifestations, not stated as uncontrolled Acquired hypothyroidism ([facility]) Unspecified hypothyroidism Diabetic nephropathy associated with type 2 diabetes mellitus (HCC) ([facility]) Chronic systolic heart failure ([facility]) Chronic systolic heart failure Type 2 diabetes [...] and anxiety (CMS/HCC) documented in this encounter [facility] HealthcareEvaluation note* Diagnosis Diabetic autonomic neuropathy associated with type 2 diabetes mellitus (CMS/HCC) - Primary Type II or unspecified type diabetes [...] Medicare annual wellness visit, subsequent Acquired hypothyroidism ([facility]) Unspecified hypothyroidism Type 2 diabetes mellitus with peripheral vascular disease ([facility]) Hypercholesterolemia ([facility]) Pure hypercholesterolemia Hyperlipidemia, unspecified hyperlipidemia type ([facility]) Type 2 diabetes mellitus with foot ulcer (CODE) Non-pressure chronic ulcer of other part of left foot with fat layer exposed Pulmonary hypertension, unspecified ([facility]) Type 2 diabetes mellitus with diabetic chronic kidney disease ([facility]) Chronic kidney disease, stage 3a ([facility]) ([facility]) Cardiomyopathy, unspecified Other cardiomyopathies Chronic diastolic (congestive) heart failure Chronic systolic (congestive) heart failure Hypertensive heart disease with heart failure ([facility]) Unspecified hypertensive heart disease with heart failure Unspecified systolic (congestive) heart failure ([facility]) Vascular dementia, unspecified severity, without behavioral disturbance, psychotic disturbance, mood disturbance, and anxiety ([facility]) Type II or unspecified type diabetes mellitus with neurological manifestations, not stated as uncontrolled(250.60) ([facility])- Primary Type II or unspecified type diabetes mellitus with neurological manifestations, not stated as uncontrolled Hammer toe of left foot Corns and callosities Contracture of toe of left foot Peripheral vascular disease ([facility]) Unspecified peripheral vascular disease documented in this encounter [facility] HealthcareEvaluation note* Diagnosis Diabetic autonomic neuropathy [...] 2 diabetes mellitus with foot ulcer (CODE) ([facility]) Non-pressure chronic ulcer of other part of [...] with neurological manifestations, not stated as uncontrolled(250.60) (HCC)- Primary Type II or unspecified type diabetes mellitus with neurological manifestations, not stated as uncontrolled Hammer toe of left foot Corns and callosities Contracture of toe of left foot Peripheral vascular disease Unspecified peripheral vascular disease documented in this encounter [facility] HealthcareEvaluation note* Diagnosis Diabetic autonomic neuropathy [...] hearing loss, asymmetrical documented in this encounter [facility] HealthcareEvaluation note* Diagnosis Diabetic autonomic neuropathy [...] disease (HCC) Routine general medical examination at [facility] care facility- Primary [facility] Abnormal glucose tolerance test Impaired glucose tolerance test Benign essential hypertension Essential hypertension, benign Medicare annual wellness visit, subsequent Acquired hypothyroidism Unspecified hypothyroidism Type 2 diabetes mellitus with peripheral vascular disease (HCC) Hypercholesterolemia Pure hypercholesterolemia Hyperlipidemia, unspecified hyperlipidemia type Spinal stenosis of lumbar region with neurogenic claudication Routine general medical examination at [facility] care facility- Primary Routine general medical examination [...] disease (HCC) Chronic kidney disease, stage 3a ([facility]) Cardiomyopathy, unspecified (HCC) Other cardiomyopathies (HCC) Chronic [...] hearing loss, asymmetrical documented in this encounter [facility] HealthcareEvaluation note* Diagnosis Diabetic autonomic neuropathy [...] Primary Routine general medical examination at a [facility] care [facility] Medicare annual wellness visit, subsequent Acquired [...] stage 3a (CMS-HCC) documented in this encounter [facility] HealthcareEvaluation note* Diagnosis Diabetic autonomic neuropathy [...] neurogenic claudication Routine general medical examination at [facility] care facility- Primary Routine general medical examination at a health care [facility] Medicare annual wellness visit, subsequent Acquired [...] of index finger documented in this encounter [facility]* [...] finger- Primary Chronic kidney disease, stage 3a ([facility]) Asymmetrical sensorineural hearing loss- Primary Sensorineural hearing loss, asymmetrical Infection of index finger- Primary Swelling of index finger Full incontinence of feces documented in this encounter [facility] HealthcareEvaluation note* Diagnosis Diabetic autonomic neuropathy [...] Primary Routine general medical examination at a [facility] care facility Abnormal glucose tolerance test Impaired [...] with neurological manifestations, not stated as uncontrolled(250.60) ([facility]) Type II or unspecified type diabetes mellitus with neurological manifestations, not stated as uncontrolled [facility] Phone: [facility] Work Phone: Summary Purpose Family History Relationship Condition Age at Onset Recorded Date/T noe father Hypertension Unknown family memberHeart diseaseUnknowngrandparentDiabetes mellitusUnknowngrandparent Malignant neoplasmUnknown Relationship Condition Age at Onset Recorded Date/T noe father Hypertension Unknown family memberHeart diseaseUnknowngrandparentDiabetes mellitusUnknowngrandparent Malignant neoplasmUnknownbrotherDiabetes mellitusUnknownHeart diseaseUnknown Advance Directives Advance Directive Response Recorded Date/ Time Advance Directives No January 17, 2021 9:59am Chief Complaint and Reason for Visit Chief Complaint Rigt Breast Cancer, Back Cyst Right Breast Cancer, Positive Margin BREAST CANCER r10.84Reason for VisitAbnormal ECG Coronary artery disease Hx of CABG Ischemic cardiomyopathy Adenoid cystic carcinoma of breast Chief Complaint Right Breast Cancer, Positive Margin BREAST CANCER r10.84Reason for VisitAbnormal ECG Coronary artery disease Hx of CABG Ischemic cardiomyopathy Adenoid cystic carcinoma of breast Chief Complaint Z85.3 Additional Source Comments INFORMATION SOURCE (unrecogn ized section and content) DATE CREATED AUTHOR 07/31/2017 [facility] DATE CREATED AUTHOR AUTHOR'S ORGANIZ ATION 01/23/2020 [facility] DATE CREATED AUTHOR AUTHOR'S ORGANIZ ATION 04/06/2021 [facility] DATE CREATED AUTHOR AUTHOR'S ORGANIZ ATION 11/12/2021 [facility] DATE CREATED AUTHOR AUTHOR'S ORGANIZ ATION 11/27/2023 [facility] DATE CREATED AUTHOR AUTHOR'S ORGANIZ ATION 07/11/2024 [facility] DATE CREATED AUTHOR AUTHOR'S ORGANIZ ATION 07/24/2024 [facility] DATE CREATED AUTHOR AUTHOR'S ORGANIZ ATION 10/24/2024 [facility] EPIC Care Teams (unrecognized sec tion and content) Team Status: Inactive Member Role Status Dates Hong Schilling MD Primary Care Provider, Attending Pro vider Active Team Status: Inactive Member Role Status Dates Hong Schilling MD Primary Care Provider Active Bill Trammell DOAttending ProviderActive Team Status: Active Member Role Status Dates Hong Schilling MD Primary Care Provider Active Wai Duvall II DOAttending ProviderActive Team Status: Active Member Role Status Hong Schilling MD Primary Care Provider Active Team Status: Inactive Member Role Status Dates Hong Schilling MD Primary Care Provider Active S tart: November 26, 2023 End: November 26, 2023Fredric Rosendo , DOAttending ProviderActiveStart: November 26, 2023 End: November 26, 2023Team MemberRelationshipSpecialtyStart DateEnd Date Hong Schilling MD [address] [facility] [address] [place] [address] PCP - [facility] Medicine07/25/22 Hong Schilling MD [address] [facility] [address] [place] [address] PCP - [facility]04/13/23Team MemberRelationshipSpecialtyStart DateEnd Date Hong Schilling MD [address] [facility] [address] [place] [address] [facility] Hong Schilling MD [address] [facility] [address] [place] [address] PCP - [facility]04/13/23Team MemberRelationshipSpecialtyStart DateEnd Date Hong Schilling MD [address] [facility] [address] [place] [address] PCP - [facility]07/25/22 Hong Schilling MD [address] [facility] [address] [place] [address] PCP - [facility]04/13/23Team MemberRelationshipSpecialtyStart DateEnd Date Hong Schilling MD [address] [facility] [address] [place] [address] PCP - [facility]07/25/22 Hong Schilling MD [address] [facility] [address] [place] [address] PCP - [facility]04/13/23Team MemberRelationshipSpecialtyStart DateEnd Date Hong Schilling MD [address] [facility] [address] [place] [address] PCP - [facility]07/25/22 Hong Schilling MD [address] [facility] [address] [place] [address] PCP - [facility]04/13/23Team MemberRelationshipSpecialtyStart DateEnd Date Hong Schilling MD [address] [facility] [address] [place] [address] PCP - [facility]07/25/22 Hong Schilling MD [address] [facility] [address] [place] [address] PCP - [facility]04/13/23Team MemberRelationshipSpecialtyStart DateEnd Date Hong Schilling MD [address] [facility] [address] [place] [address] PCP - [facility]07/25/22 Hong Schilling MD [address] [facility] [address] [place] [address] PCP - [facility]04/13/23Team MemberRelationshipSpecialtyStart DateEnd Hong Schilling MD [address] [facility] [address] [place] [address] PCP - [facility]07/25/22 Hong Schilling MD [address] [facility] [address] [place] [address] PCP - [facility]04/13/23Team MemberRelationshipSpecialtyStart DateEnd Date Hong Schilling MD [address] [facility] [address] [place] [address] PCP - [facility]07/25/22 Hong Schilling MD [address] [facility] [address] [place] [address] PCP [facility]04/13/23Te MemberRelationshipSpecialtyStart DateEnd Hong Schilling MD [address] [facility] [address] [place] [address] PCP - [facility]07/25/22 Hong Schilling MD [address] [facility] [address] [place] [address] PCP - [facility]04/13/23Team MemberRelationshipSpecialtyStart DateEnd Date Hong Schilling MD [address] [facility] [address] [place] [address] PCP - [facility]07/25/22 Hong Schilling MD [address] [facility] [address] [place] [address] [facility]04/13/23Team MemberRelationshipSpecialtyStart DateEnd Date Hong Schilling MD [address] [facility] [address] [place] [address] PCP - [facility]07/25/22 Hong Schilling MD [address] [facility] [address] [place] [address] [facility]04/13/23Team MemberRelationshipSpecialtyStart DateEnd Date Hong Schilling MD [address] [facility] [address] [place] [address] [facility] - [facility]07/25/22 Hong Schilling MD [address] [facility] [address] [place] [address] [facility]04/13/23Te MemberRelationshipSpecialtyStart DateEnd Date Hong Schilling MD [address] [facility] [address] [place] [address] [facility] - [facility]07/25/22 Hong Schilling MD [address] [facility] [address] [place] [address] [facility]04/13/23Team MemberRelationshipSpecialtyStart DateEnd Date Hong Schilling MD [address] [facility] [address] [place] [address] [facility]07/25/22 Hong Schilling MD [address] [facility] [address] [place] [address] [facility]04/13/23Team MemberRelationshipSpecialtyStart DateEnd Date Hong Schilling MD [address] [facility] [address] [place] [address] [facility]07/25/22 Hong Schilling MD [address] [facility] [address] [place] [address] [facility]04/13/23Team MemberRelationshipSpecialtyStart DateEnd Date Hong Schilling MD [address] [facility] [address] [place] [address] [facility]07/25/22 Hong Schilling MD [address] [facility] [address] [place] [address] [facility]04/13/23Team MemberRelationshipSpecialtyStart DateEnd Date Hong Schilling MD [address] [facility] [address] [place] [address] [facility]07/25/22 Hong Schilling MD [address] [facility] [address] [place] [address] [facility]04/13/23Team MemberRelationshipSpecialtyStart DateEnd Date Hong Schilling MD [address] [facility] [address] [place] [address] PCP - [facility]07/25/22 Hong Schilling MD [address] [facility] [address] [place] [address] [facility]04/13/23Team MemberRelationshipSpecialtyStart DateEnd Hong Schilling MD [address] [facility] [address] [place] [address] [facility]07/25/22 Hong Schilling MD [address] [facility] [address] [place] [address] [facility]04/13/23Team MemberRelationshipSpecialtyStart DateEnd Date Hong Schilling MD [address] [facility] [address] [place] [address] [facility]07/25/22 Hong Schilling MD [address] [facility] [address] [place] [address] [facility]04/13/23Team MemberRelationshipSpecialtyStart DateEnd Date Hong Schilling MD [address] [facility] [address] [place] [address] [facility]07/25/22 Hong Schilling MD [address] [facility] [address] [place] [address] [facility]04/13/23 Litzy Montoya, RN [address] [place] [address] Registered NurseMercyone [facility] Medicine9/16/259/Team MemberRelationshipSpecialty Start DateEnd Date Hong Schilling MD [address] [facility] [address] [place] [address] PCP - GeneralFamily Medicine07/25/22 Hong Schilling MD [address] [facility] [address] [place] [address] PCP - [facility]04/13/23 Goals (unrecognized section and content) Goals may be documented in a n alternate sectionGoals may be documented in an alternate section Reason for Visit (unrecogniz ed section and content) ReasonCommentsToe ProblemEstablished pt presents today for concerns of a small sore on left 5th toe. Noticed this about a week ago. Pt states she put hand cream on the area. PCP: Dr. Tonie LARA 08/04/23, A1C: 5.1, BS: [id number]. 10mos. Rt. lumpectomyW/mammsReasonCommentsDM Foot CarePCP: Dr. Tonie LARA 08/04/23, A1C: 5.1, BS: 80ReasonCommentsDM Foot CarePt is here today with her spouse requesting diabetic foot care BS: 90 A1c: 5.7LV Dr. Schilling [id number] Hearing LossAudio 06/13/24SpecialtyDiagnoses / ProceduresReferred By Contact Referred To ContactOtolaryngology Diagnoses Hearing loss associated with syndrome of both ears Procedures AR OFFICE/OUTPATIENT NEW HIGH MDM 60 MINUTES Hong Schilling MD [address] [facility] [address] [place] [address] Phone: tel: fax: Jamila Carcamo MD [address] [facility] [address] [place] [address] Phone: tel: fax: Referral IDStatusReasonStart DateExpiration DateVisits RequestedVisits [id number] Specialty Services Required /[id number] Foot CareEstablished patient presents today for DM nail care. Patient also inquiring about diabetic shoes, patient states she's gotten them though our office in the past. PCP: Dr. Schilling LV 07/17/23, [place] 07/21/24 A1C: 5.7, BS: 80-94ReasonGolden Valley Memorial HospitalmentsMedicare Annual Wellness Visit SubsequentPt has been having congestion for over a week , phlegm green yellow, headaches,ReasonCommentsShoe Pick upSue Zhanna Horne is a 74 y.o. female who presents for shoe grain picker. [address] Skinner, 3 HM inserts. A1c 5.8 [id number] Onset DateCommentsAdvice Only08/25/2024Keeping DM shoesReasonCommentsfinger recheckReasonCommentsDM Foot CarePt is here today with her spouse for diaebtic foot careBS: 78 [...] BE BASED ON THE PRIMARY CLINICAL RECORDS. [employer] [facility]. provides no warranty or guarantee of the accuracy or completeness of information in this document.
[2024-12-17 12:28] LABS: Thyroid Stimulating Hormone 2.472 uIU/mL (0.358-3.740)
[2024-12-17 13:13] LABS: Folate 30.60 ng/mL (8.60-58.90)
[2024-12-18 07:12] LABS: Vitamin B12 524 pg/mL (232-1245)
[2024-12-18 08:09] LABS: RPR Non Reactive (Non Reactive)
[2024-12-21 16:08] LABS: Vitamin B6, Plasma 22.4 ug/L (3.4-65.2)
== END 2024-12-17 10:29 | disposition home or self-care (01) ==
LOC: LAB 10:48
PROVIDERS: PCP Family Medicine; Visit Provider Psychiatry & Neurology Neurology
DX: G62.9 Polyneuropathy, unspecified (principal); G60.9 Hereditary and idiopathic neuropathy, unspecified; R79.89 Other specified abnormal findings of blood chemistry; Z11.3 Encounter for screening for infections with a predominantly sexual mode of transmission; E53.1 Pyridoxine deficiency; D51.3 Other dietary vitamin B12 deficiency anemia; R79.83 Abnormal findings of blood amino-acid level; I77.6 Arteritis, unspecified
CPT/HCPCS: 36415; 82607; 82746; 83090; 83521; 83921; 84155; 84156; 84165; 84166; 84207; 84439; 84443; 85652; 86038; 86140; 86431; 86592; 86618; 86788; 86789